=== PATIENT | female | born 1955 | race American Indian/Alaskan Native ===

== ENCOUNTER 2019-05-09 14:30 | Outpatient (RCR) | payer OTHER, SELFPAY ==
--- NOTE | 2019-04-05 14:42 | PTOPEVAL ---
PHYSICAL THERAPY EVALUATION AND PLAN OF CARE 04-05-19 The PT evaluation was completed today for the diagnosis of vertigo and balance issues. The plan of treatment is for 2x/week for 5 weeks. Thank you for referring Eduarda to [facility]. Please review, sign, date and return this plan of care CHUCKIE. I agree with and certify that the following plan of care is medically necessary. Referring Physician Date Attending Provider: Dr. Everett Qiu *PT Outpatient Evaluation Start: 04/05/19 13:39 Document 04/05/19 13:35 SOFI (Rec: 04/05/19 14:42 SOFI [id number]) Therapy Assessment Status Assessment Status Assessment Status Evaluation Outpatient Past Medical History Neurological History Hx Other Neurological Disorders Yes: have headache 1x/2-3 wk, reports not migraine Cardiovascular History Hx Hypertension Yes: med control Respiratory History Hx Chronic Obstructive Pulmonary Disease Yes: inhalers, (COPD) Hx Sleep Apnea Yes: CPAP for sleeping Hx Other Respiratory Disorders Yes: should use oxygen 2L/min all the time,not have today Gastrointestinal History Hx Other Gastrointestinal Disorders Yes: have spot on stomach-see in [place] Genitourinary History Hx Other Genitourinary Disorders Yes: chronic constipation; kidney failure-take water pills Musculoskeletal History Hx Back Pain Yes Hx Other Musculoskeletal Disorders Yes: neck pain; DDD in spine- neck and back Hematological History Hx Hematological Disorders No Significant History Endocrine History Hx Endocrine Disorders No Significant History HEENT History Hx Cataracts Yes: B cataracts/surg on L next week Hx Meniere's Syndrome Yes: 16 years Hx Ear Surgery Yes: 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 implant Hx Other HEENT Disorders Yes: wear glasses Integumentary History Hx Skin Disorders No Significant History Psychosocial History Hx Bipolar Disorder Yes: med control Other History Hx Cancer Yes: breast cancer-radiation, B mastectomy; NO chemo Hx Other Medical Conditions Yes: morbid obesity Evaluation Information Problem Diagnosis vertigo, gait and balance issues Onset about one year ago Subjective Information gradual increase in dizziness, Query Text:As Reported By Patient/ balance and walking problems; Family no recent injuries; Did have one fall in Nov 2018- floor uneven, lost footing an
--- NOTE | 2019-04-21 14:06 | PCPTNOTE ---
Patient called & cancelled scheduled appointment this date due to increase vertigo symptoms
--- NOTE | 2019-05-11 14:49 | PCPTNOTE ---
pt called and canceled today's reevaluation due to bad weather;
--- NOTE | 2019-05-19 14:55 | PCPTNOTE ---
pt called and canceled reeval this date due to her car not starting.
--- NOTE | 2019-05-20 11:32 | PCPTNOTE ---
pt called and cancelled today's reeval due to her car not running;
--- NOTE | 2019-06-03 10:55 | PCPTNOTE ---
Addendum entered by Margot Crump, PT 06/03/19 11:13: I called pt, she thought her appt was at 2:30 today; She was scheduled for 10:30; she reports she is doing well and does not need any more PT; she agreed to discharge from PT and to continue with her home exercises. Original Note: pt did not show for today's reevaluation;
--- NOTE | 2019-06-03 13:41 | PCPTNOTE ---
PHYSICAL THERAPY DISCHARGE 06-03-2019 Attending Provider: Dr. Everett Qiu Patient:Eduarda Wall Date of :1955 Mrs. Wall has not returned for any further treatments since 05/09/2019, therefore she will be discharged from therapy at this time. She called and canceled 3 appointments, then stopped attending. The goals were not assessed. She received 8 PT sessions, from April 05 to May 09 for the diagnosis of gait disturbance, balance and vertigo. Thank you for referring Eduarda to [facility]. Please review, sign, date and return this discharge summary CHUCKIE. I have been updated about the patient's current status and I agree with discharge from the above service at this time. Referring Physician Date
== END 2019-06-06 10:28 | disposition home or self-care (01) ==
LOC: ANHPT 14:30
PROVIDERS: PCP Internal Medicine
DX: G43.109 Migraine with aura, not intractable, without status migrainosus (principal); R42 Dizziness and giddiness
CPT/HCPCS: 97110; 97116; 97162

== ENCOUNTER 2019-05-30 13:59 | Outpatient (CLI) | payer OTHER, SELFPAY ==
--- NOTE | ~2019-05-30 | CT_ITS ---
EXAMINATION: CT abdomen pelvis wo con DATE: 05/30/2019 14:23 INDICATION: Periumbilical pain TECHNIQUE: Computed tomography (CT) of the abdomen and pelvis was performed without intravenous contr ast. The dose-length product (DLP) was 1222.85 mGy-cm. Automated exposure control and iterative recon struction technique were employed. COMPARISON: 03/21/2014 FINDINGS: Minimal dependent atelectasis is present in the lung bases. The heart size is normal. Bilat eral breast implants are noted. A 12.4 x 7.1 cm cystic lesion of the left hepatic lobe measured 5.2 x 3.1 cm on the 2013 comparison. There is a 1.4 cm cyst in the right hepatic lobe. The spleen, pancrea s, and right adrenal gland are normal. There is a 1.2 cm adenoma of the left adrenal gland. The gallb ladder is surgically absent. There is mild enlargement of the common bile duct and central intrahepat ic ducts which is likely due to post cholecystectomy state. Nonobstructing stones of the left kidney measure up to 5 mm. Nonobstructing stones of the right kidney measure up to 3 mm. Cysts of the kidney s measure up to 2.8 cm on the left. No pathologically enlarged abdominal or pelvic lymph nodes are id entified. There is no free intraperitoneal gas or evidence of bowel obstruction. Colonic diverticulos is is present without evidence of diverticulitis. There is severe lumbar spondylosis. There is been interval repair of the previously described Spigelian and supraumbilical hernias. IMPRESSION: 1. No CT correlate for the patient's symptoms. 2. Bilateral nephrolithiasis. 3. Interval enlargement of a now large cystic lesion of the left hepatic lobe. Reviewed, dictated and finalized at location A. 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
== END 2019-05-30 14:00 | disposition home or self-care (01) ==
PROVIDERS: PCP Internal Medicine; Visit Provider Internal Medicine
DX: R10.33 Periumbilical pain (principal); N20.0 Calculus of kidney; K76.9 Liver disease, unspecified
CPT/HCPCS: 74176

== ENCOUNTER 2019-06-17 12:48 | Outpatient (CLI) | payer OTHER, SELFPAY ==
[2019-06-17 13:43] LABS: Hemoglobin A1C 5.2 % (<5.7)
[2019-06-17 14:14] LABS: Free T4 Free Thyroxine 0.97 ng/mL (0.78-2.19)
== END 2019-06-17 12:49 | disposition home or self-care (01) ==
DX: R94.6 Abnormal results of thyroid function studies (principal)
CPT/HCPCS: 36415; 83036; 84439; 84443

== ENCOUNTER 2019-09-22 12:52 | Outpatient (CLI) | payer OTHER, SELFPAY ==
[2019-09-22 13:30] LABS: Alanine Aminotransferase 16 U/L (4-35); Alkaline Phosphatase 154 U/L (38-126); Aspartate Amino Transferase 23 U/L (14-36); Bilirubin,Total 0.2 mg/dL (0.2-1.3); Blood Urea Nitrogen 17 mg/dL (7-17); Calcium 10.7 mg/dL (8.4-10.2); Carbon Dioxide 30 mmol/L (22-30); Chloride 105 mmol/L (98-107); Cholesterol 236 mg/dL (0-200); Estimated Glomerular Filt Rate 38; Glucose 103 mg/dL (65-105); HDL Direct 30 mg/dL; Sodium 140 mmol/L (137-145); Triglycerides 235 mg/dL (<150)
[2019-09-22 13:40] LABS: LDL Cholesterol Direct 157 mg/dL
== END 2019-09-22 12:53 | disposition home or self-care (01) ==
LOC: ANHLAB 12:55
PROVIDERS: Visit Provider Internal Medicine
DX: E78.5 Hyperlipidemia, unspecified (principal); I12.9 Hypertensive chronic kidney disease with stage 1 through stage 4 chronic kidney disease, or unspecified chronic kidney disease; N18.3 Chronic kidney disease, stage 3 (moderate); E21.3 Hyperparathyroidism, unspecified
CPT/HCPCS: 36415; 80053; 80061

== ENCOUNTER 2019-11-15 14:08 | Outpatient (CLI) | payer OTHER, SELFPAY ==
--- NOTE | ~2019-11-15 | XR_ITS ---
XR chest 2V DATE: 11/15/2019 14:24 INDICATION: Unspecified symptoms and signs involving the circulatory system TECHNIQUE: PA and lateral views COMPARISON: 05/08/2017 PA and lateral chest FINDINGS: Heart size is within normal range. There is mild aortic unfolding and calcification. No hil ar or mediastinal enlargement. No pulmonary infiltrate or consolidation, pleural effusion or pulmonary vascular congestion or pneumo thorax. Surgical clips, left axillary area. Osteopenia. Dextroscoliosis and mild degenerative change of the thoracic spine. IMPRESSION: No active cardiac pulmonary disease Status post left axillary node dissection Reviewed, dictated and finalized at location A.
== END 2019-11-15 14:09 | disposition home or self-care (01) ==
PROVIDERS: Visit Provider Nurse Practitioner Family
DX: R05 Cough (principal); R09.89 Other specified symptoms and signs involving the circulatory and respiratory systems; R06.02 Shortness of breath; R07.9 Chest pain, unspecified; Z98.890 Other specified postprocedural states
CPT/HCPCS: 71046

== ENCOUNTER 2020-01-31 16:03 | Outpatient (CLI) | payer OTHER, SELFPAY ==
--- NOTE | ~2020-01-31 | CT_ITS ---
EXAMINATION: CT lung screening DATE: 01/31/2020 16:26 INDICATION: History of tobacco dependence TECHNIQUE: Computed tomography (CT) of the chest was performed without intravenous contrast. The dose -length product was 241.75 mGy-cm. Automated exposure control and iterative reconstruction technique were employed. COMPARISON: CT dated 08/16/2014 FINDINGS: Chronic mild mediastinal lymphadenopathy, likely reactive. There is atherosclerosis of the aorta and coronary arteries. No significant pleural or pericardial effusion. Mild paraseptal emphysema. There are persistent patchy groundglass opacities with areas of mosaic att enuation, predominantly affecting the upper lobes. There are a few small scattered 2 mm calcified nod ules in the upper lobes. There is a 6 mm subsolid nodule right lower lobe, image 90. This does not ap pear to be significantly changed. There are breast implants. There are surgical clips in the left axi lla. Significant enlargement of hypodense mass left hepatic lobe measuring 12.7 x 7.5 cm compared with 5.2 x 3.1 cm on prior examination. IMPRESSION: 1. Scattered groundglass opacification predominantly affecting the upper lobes with some solid ground glass nodule measuring 6 mm in the right lower lobe. No significant interval change. Differential amanda gnosis includes chronic hypersensitivity pneumonitis, respiratory bronchiolitis. 2: Chronic mediastinal lymphadenopathy, likely reactive. 3: Enlarging hypodense mass left hepatic lobe. Correlation with contrast-enhanced CT or MRI recommend ed to assess for internal enhancement. 4: Mild emphysema. Reviewed, dictated and finalized at location A. IMPRESSION: 1. Scattered groundglass opacification predominantly affecting the upper lobes with some solid groundglass nodule measuring 6 mm in the right lower lobe. No s ignificant interval change. Differential diagnosis includes chronic hypersensit ivity pneumonitis, respiratory bronchiolitis. 2: Chronic mediastinal lymphadenopathy, likely reactive. 3: Enlarging hypodense mass left hepatic lobe. Correlation with contrast-enhanc ed CT or MRI recommended to assess for internal enhancement. 4: Mild emphysema.
== END 2020-01-31 16:04 | disposition home or self-care (01) ==
PROVIDERS: PCP Internal Medicine; Visit Provider Nurse Practitioner Family
DX: Z12.2 Encounter for screening for malignant neoplasm of respiratory organs (principal); Z87.891 Personal history of nicotine dependence; R91.8 Other nonspecific abnormal finding of lung field; R59.0 Localized enlarged lymph nodes; R16.0 Hepatomegaly, not elsewhere classified; J43.9 Emphysema, unspecified
CPT/HCPCS: G0297

== ENCOUNTER 2020-02-06 00:47 | Outpatient (CLI) | payer OTHER, SELFPAY ==
[2020-02-06 19:58] LABS: SARS-CoV-2 RNA PCR Negative
== END 2020-02-06 00:48 | disposition home or self-care (01) ==
LOC: ANHCOVIDDT 00:47
PROVIDERS: PCP Internal Medicine; Visit Provider Internal Medicine Gastroenterology
DX: Z01.812 Encounter for preprocedural laboratory examination (principal); Z20.828 Contact with and (suspected) exposure to other viral communicable diseases
CPT/HCPCS: 87635; C9803; U0003

== ENCOUNTER 2020-02-08 02:08 | Day surgery (SDC) | payer OTHER, SELFPAY ==
[2020-02-01 13:04] VITALS: BMI 41.2
[2020-02-08 07:55] VITALS: BP 179/70; PULSE 84; RESP 18; TEMP 36.9; O2SAT 98; BMI 40.4
[2020-02-08] MEDS: LACTATED RINGERS 1,000 ML 150 ML IV CONT (08:07)
--- NOTE | 2020-02-08 08:39 | WPDANESEPPF ---
Anes - Initial Pre Proc Eval Procedure: Operation Date: 02/08/20 09:00 Proposed Procedures p Screening Colonoscopy - Yandel Carrera MD Date/Time: 02/08/20 08:39 Surgeon: Yandel Carrera MD Pre Op Diagnosis: neoplasm screening Patient Data Age: 64 Gender: F Height: 5 ft 1 in Weight: 96.9 kg Last Vital Signs Temp 36.9 C 02/08/20 07:55 Pulse 84 02/08/20 07:55 Resp 18 02/08/20 07:55 BP 179/70 H 02/08/20 07:55 Pulse Ox 98 02/08/20 07:55 Allergies Allergy/AdvReac Type Severity Reaction Status Date / Time tetanus immune globulin Allergy Mild HIVES Verified 02/08/20 07:52 cyclobenzaprine Allergy Unknown TINGLING Verified 02/08/20 07:52 SENSATION IN EXTREMITIES fluoxetine Allergy Unknown Unknown Verified 02/08/20 07:52 tetanus and diphtheria Allergy Unknown Swelling Verified 02/08/20 07:52 toxoids Tetanus Vaccines and Toxoid Allergy Unknown rash Verified 02/08/20 07:52 FLUOXETINE HCL Allergy Unknown RASH, Uncoded 02/08/20 07:52 SWELLING Home Medications Medication Instructions Recorded Confirmed Type nortriptyline 10 mg capsule 10 mg PO DAILY 02/25/19 02/01/20 History albuterol sulfate 2.5 mg INHALATION BID PRN #60 ml 04/18/19 02/01/20 Rx albuterol sulfate 90 mcg/actuation 2 inhalation INHALATION Q4-6H PRN 04/18/19 02/01/20 Rx aerosol inhaler #8.5 gm mometasone-formoterol HFA 200 2 puff INHALATION Q12H #13 gm 04/20/19 02/01/20 Rx mcg-5 mcg/actuation aerosol inhaler lisinopril 30 mg tablet 30 mg PO DAILY #90 tablet 06/27/19 02/01/20 Rx bupropion HCl 150 mg 24 hr tablet, 150 mg PO QAM #90 tablet 08/12/19 02/01/20 Rx extended release pantoprazole 40 mg tablet,delayed 40 mg PO QAM #30 tablet 08/12/19 02/08/20 Rx release potassium chloride 20 mEq 20 meq PO DAILY #30 tablet 09/26/19 02/01/20 Rx tablet,extended release(part/cryst) risperidone 3 mg tablet 3 mg PO DAILY #90 tablet 09/29/19 02/01/20 Rx furosemide 40 mg tablet 40 mg PO BID #180 tablet 11/28/19 02/01/20 Rx amlodipine 10 mg tablet 10 mg PO DAILY #90 tablet 12/02/19 02/01/20 Rx atorvastatin 20 mg tablet 20 mg PO DAILY #90 tablet 12/20/19 02/01/20 Rx peg-electrolyte solution 420 gram 240 ml PO Q10M #4000 ml 12/30/19 01/18/20 Rx oral solution hydrocodone 10 mg-acetaminophen 1 tablet PO Q6H PRN #120 tablet 01/26/20 02/01/20 Rx 325 mg tablet Patient hx anesthesia problems: none Family hx anesthesia problems: none PMFSH Past Medical History Medical History Bipolar disorder, unspecified Chronic kidney disease, stage 3 (moderate) Chronic obstructive pulmonary disease, unspecified Essential (primary) hypertension Liver mass BERTA (obstructive sleep apnea) Screening for colon cancer Screening for osteoporosis Surgical History Surgical History Status post mastectomy Family History Family History Sibling Family history of malignant neoplasm Family history of diabetes mellitus in first degree relative Family history of lupus erythematosus Family history of malignant neoplasm of brain Family history of malignant neoplasm of breast Mother Family history of chronic obstructive pulmonary disease, Onset Age: 76 Patient's mother is Family history of emphysema Family history of malignant neoplasm of breast Father Family history of malignant neoplasm of esophagus, Onset Age: 54 Patient's father is Other Family history of cardiovascular disease Family history of malignant neoplasm of male breast Family history of obesity Social History Social History Years smoked: 30 Smoking status: Current every day smoker Tobacco type: cigarettes Second hand tobacco smoke exposure: Yes Smoking end date:
--- NOTE | 2020-02-08 08:51 | PM.HPGS ---
History of Present Illness History of Present Illness Consent: Risks, benefits, and alternatives have been discussed and questions answered. Patient agrees to proceed with procedure. Chief complaint: neoplasm screening Narrative: Eduarda Wall is a 64 year old female here for screening colonoscopy, last one about 10 years ago. Review of Systems Constitutional: Constitutional: Denies headache(s) and Denies weakness Eyes: Eyes: Denies blurry vision ENT: Reports Normal hearing present, Denies headache(s) and Denies neck pain Cardiovascular: Cardiovascular: Denies chest pain and Denies dyspnea Respiratory: Respiratory: Denies dyspnea Gastrointestinal: Gastrointestinal: Reports no additional gastrointestinal complaints Genitourinary: Genitourinary: Denies dysuria Musculoskeletal: Musculoskeletal: Denies neck pain Integumentary/Breasts: Skin/Breast: Denies dry skin Neurologic: Reports Normal hearing present, Denies headache(s) and Denies weakness Psychiatric: Psychiatric: Denies anxiety Endocrine: Endocrine: Denies change in body appearance Hematologic/Lymphatic: Hematologic/Lymphatic: Denies easy bleeding Allergic/Immunologic: Allergic/Immunologic: Denies urticaria PMFSH Past Medical History Medical History Bipolar disorder, unspecified Chronic kidney disease, stage 3 (moderate) Chronic obstructive pulmonary disease, unspecified Essential (primary) hypertension Liver mass BERTA (obstructive sleep apnea) Screening for colon cancer Screening for osteoporosis Surgical History Surgical History Status post mastectomy Family History Family History Sibling Family history of malignant neoplasm Family history of diabetes mellitus in first degree relative Family history of lupus erythematosus Family history of malignant neoplasm of brain Family history of malignant neoplasm of breast Mother Family history of chronic obstructive pulmonary disease, Onset Age: 76 Patient's mother is Family history of emphysema Family history of malignant neoplasm of breast Father Family history of malignant neoplasm of esophagus, Onset Age: 54 Patient's father is Other Family history of cardiovascular disease Family history of malignant neoplasm of male breast Family history of obesity Social History Social History Years smoked: 30 Smoking status: Current every day smoker Tobacco type: cigarettes Second hand tobacco smoke exposure: Yes Smoking end date: 06/04/17 Alcohol intake: never Living arrangements: with family Gender identity (if verbalized by the patient): Female Spiritual care concerns: No Meds Home Medications and Allergies Home Medications Medication Instructions Recorded Confirmed Type nortriptyline 10 mg capsule 10 mg PO DAILY 02/25/19 02/01/20 History albuterol sulfate 2.5 mg INHALATION BID PRN #60 ml 04/18/19 02/01/20 Rx albuterol sulfate 90 mcg/actuation 2 inhalation INHALATION Q4-6H PRN 04/18/19 02/01/20 Rx aerosol inhaler #8.5 gm mometasone-formoterol HFA 200 2 puff INHALATION Q12H #13 gm 04/20/19 02/01/20 Rx mcg-5 mcg/actuation aerosol inhaler lisinopril 30 mg tablet 30 mg PO DAILY #90 tablet 06/27/19 02/01/20 Rx bupropion HCl 150 mg 24 hr tablet, 150 mg PO QAM #90 tablet 08/12/19 02/01/20 Rx extended release pantoprazole 40 mg tablet,delayed 40 mg PO QAM #30 tablet 08/12/19 02/08/20 Rx release potassium chloride 20 mEq 20 meq PO DAILY #30 tablet 09/26/19 02/01/20 Rx tablet,extended release(part/cryst) risperidone 3 mg tablet 3 mg PO DAILY #90 tablet 09/29/19 02/01/20 Rx furosemide 40 mg tablet 40 mg PO BID #180 tablet 11/28/19 02/01/20 Rx amlodipine 10 mg tablet 10 mg PO DAILY #90 tablet 12/02/19 10
[2020-02-08 09:31] VITALS: BP 131/50; PULSE 74; RESP 22; O2SAT 98
[2020-02-08 09:41] VITALS: BP 127/57; PULSE 72; RESP 20; O2SAT 99
[2020-02-08 09:51] VITALS: BP 142/68; PULSE 71; RESP 20; O2SAT 98
== END 2020-02-08 10:47 | disposition home or self-care (01) ==
PROVIDERS: PCP Internal Medicine; Visit Provider Internal Medicine Gastroenterology
PROC: 0DJD8ZZ Inspection of Lower Intestinal Tract, Via Natural or Artificial Opening Endoscopic (ICD-10-PCS; CPT 45378; principal; 2020-02-08 09:00)
DX: Z12.11 Encounter for screening for malignant neoplasm of colon (principal); D12.2 Benign neoplasm of ascending colon; K51.40 Inflammatory polyps of colon without complications; K57.30 Diverticulosis of large intestine without perforation or abscess without bleeding; I12.9 Hypertensive chronic kidney disease with stage 1 through stage 4 chronic kidney disease, or unspecified chronic kidney disease; N18.30 Chronic kidney disease, stage 3 unspecified; J44.9 Chronic obstructive pulmonary disease, unspecified; G47.33 Obstructive sleep apnea (adult) (pediatric); F31.9 Bipolar disorder, unspecified; F17.210 Nicotine dependence, cigarettes, uncomplicated; E66.01 Morbid (severe) obesity due to excess calories; Z68.41 Body mass index [BMI] 40.0-44.9, adult
CPT/HCPCS: 45385; 88305; J2704; J7120

== ENCOUNTER 2020-02-09 09:31 | Outpatient (CLI) | payer OTHER, SELFPAY ==
--- NOTE | ~2020-02-09 | CT_ITS ---
EXAMINATION: CT abdomen w con EXAM DATE: 02/09/2020 10:02 INDICATION: R16.0 - Hepatomegaly, not elsewhere classified . TECHNIQUE: Spiral CT of the abdomen was performed following intravenous injection of 100 mL Omnipaque 350. Axial, coronal and sagittal images were reviewed. The dose-length product (DLP) for this exam ination was 792.21 mGy-cm. The exposure was tailored according to patient size (auto mA exposure con trol), and iterative reconstruction (ASIR) was used as additional dose reduction technique. Compariso n is made to prior examination from 05/30/2019. FINDINGS: Again there is lobular multiseptated left liver lobe fluid density lesion straddling the me dial and lateral segments, and measuring up to 12 by 8 cm, unchanged compared to May. This did i ncrease substantially in size compared to study from 2013 (was approximately 5 cm), indicating it cou ld potentially be an asymptomatic intrahepatic biloma. Size of lesion does cause enlargement of the l eft liver lobe. There is a 10 mm left adrenal gland lesion likely adenoma. This is unchanged. The right adrenal gland , spleen, pancreas are unremarkable. Gallbladder not identified, patient likely has had cholecystecto my. There is bilateral nephrolithiasis, largest in the left sided 3 mm. There are multiple scattered renal lesions consistent with cysts There is no retroperitoneal lymphadenopathy. There is mild scat tered arteriosclerotic disease. There is 2 cm duodenal diverticulum. The stomach and small bowel are unremarkable. There is expecte d amount of colonic stool. No free intraperitoneal gas. The heart is normal in size. There are n o pericardial or pleural effusions. The lung bases are unremarkable. Small sclerotic lesion in T12 unchanged, likely bone island. IMPRESSION: 1. Left liver lobe septated cystic lesion, stable from May but increased compared to 2013. Live r cysts can increase in size, but this potentially could be intrahepatic biloma as well. Cholecystect isaac. 2. Left adrenal adenoma. 3. Bilateral nephrolithiasis. 4. Duodenal diverticulum. Reviewed, dictated and finalized at location B. 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 Left liver lobe septated cystic lesion, stable from May but increased compared to 2013. Liver cysts can increase in size, but this potentially could be intrahepatic biloma as well. Cholecystectomy. 2. Left adrenal adenoma. 3. Bilateral nephrolithiasis. 4. Duodenal diverticulum.
--- NOTE | ~2020-02-09 | DEXA_ITS ---
Bone Density Report Name: Eduarda Wall Age: 64 Sex: Female Ethnicity: White Date of : 1955 Indication: postmenopausal; height loss; prior fracture; cancer; asthma or emphysema; end stage renal disease; hysterectomy; Referring Provider: Mindy Campos Study: Bone densitometry was performed. Exam Date: February 09, 2020 Accession number: [id number] Bone Density: Region BMD T-score Z-score Classification AP Spine (L1, L2, L3) 0.964 -0.5 1.1 Normal Femoral Neck (Left) 0.742 -1.0 0.5 Normal Total Hip (Left) 1.040 0.8 1.9 Normal Total Hip Bilateral Avg 1.055 0.9 2.1 Normal Femoral Neck (Right) 0.707 -1.3 0.1 Osteopenia Total Hip (Right) 1.068 1.0 2.2 Normal World Health Organization criteria for BMD impression classify patients as: Normal (T-score at or above -1.0), Osteopenia (T-score between -1.0 and -2.5), or Osteoporosis (T-score at or below -2.5). 10-year Fracture Risk(1): Major Osteoporotic Fracture 12% Hip Fracture 1.6% Reported Risk Factors: [place] (), Neck BMD=0.707, BMI=41.2, previous fracture, smoking (1) FRAX(R) Version 3.08. Fracture probability calculated for an untreated patient. Fracture probability may be lower if the patient has received treatment. Previous Exams: Region Exam Age BMD T-score BMD Change BMD Change Date g/cm2 vs Baseline vs Previous AP Spine(L1, L2, L3) 02/09/2020 64 0.964 -0.5 -0.034(-3.4%)* -0.034(-3.4%)* 12/28/2013 58 0.998 -0.2 Total Hip(Left) 02/09/2020 64 1.040 0.8 -0.074(-6.7%)* -0.074(-6.7%)* 12/28/2013 58 1.114 1.4 Total Hip(Right) 02/09/2020 64 1.068 1.0 -0.066(-5.8%)* -0.066(-5.8%)* 12/28/2013 58 1.134 1.6 *Denotes significance at 95% confidence level, LSC for AP Spine = 0.022 g/cm2, LSC for Total Hip = 0.027 g/cm2 Clinical Information Provided by Patient: Has had a low trauma fracture Smokes Has the following medical conditions: Asthma or Emphysema, Cancer, End stage renal disease, Hysterectomy Patient maximum height was 63 Menopause Age: 41 No regular weight bearing exercise Onset of menses at age 9 Number of children 2 Impression: The patient has low bone mass, based on the Right Femoral Neck T-score. The patient has an estimated ten-year risk of hip fracture of 1.6% and an estimated ten-year risk of major fracture of 12%, based on the WHO FRAX algorithm. The patient has risk factors, including: smoking, previous fracture. The BMD for the
[2020-02-09 09:56] LABS: Estimated Glomerular Filt Rate 41
== END 2020-02-09 09:32 | disposition home or self-care (01) ==
PROVIDERS: PCP Internal Medicine; Visit Provider Nurse Practitioner
DX: R16.0 Hepatomegaly, not elsewhere classified (principal); D35.02 Benign neoplasm of left adrenal gland; N20.0 Calculus of kidney; K57.10 Diverticulosis of small intestine without perforation or abscess without bleeding; M85.851 Other specified disorders of bone density and structure, right thigh
CPT/HCPCS: 74160; 77080; Q9967

== ENCOUNTER 2020-02-20 12:14 | Outpatient (NON) | payer OTHER, SELFPAY ==
[2020-02-22 18:08] LABS: SARS-CoV-2 RNA PCR Negative
== END 2020-02-20 12:15 ==
LOC: ANHCOVIDDT 12:15
PROVIDERS: PCP Internal Medicine; Visit Provider Internal Medicine
DX: R68.89 Other general symptoms and signs (principal); Z20.828 Contact with and (suspected) exposure to other viral communicable diseases
CPT/HCPCS: 87635; C9803; U0003

== ENCOUNTER 2020-03-09 12:40 | Outpatient (CLI) | payer OTHER, SELFPAY ==
[2020-03-09 13:24] LABS: Alanine Aminotransferase 14 U/L (4-35); Albumin Level 3.8 g/dL (3.5-5.1); Alkaline Phosphatase 152 U/L (38-126); Anion Gap 6 mmol/L (8-16); Aspartate Amino Transferase 20 U/L (14-36); Bilirubin,Total 0.4 mg/dL (0.2-1.3); Blood Urea Nitrogen 17 mg/dL (7-17); Calcium 11.6 mg/dL (8.4-10.2); Carbon Dioxide 31 mmol/L (22-30); Chloride 103 mmol/L (98-107); Cholesterol 165 mg/dL (0-200); Estimated Glomerular Filt Rate 35; Glucose 99 mg/dL (65-105); HDL Direct 29 mg/dL; Potassium 3.5 mmol/L (3.4-5.0); Sodium 140 mmol/L (137-145); Triglycerides 259 mg/dL (<150)
[2020-03-09 13:35] LABS: LDL Cholesterol Direct 88 mg/dL
[2020-03-09 14:02] LABS: Vitamin D 25 Hydroxy 45.5 ng/mL
== END 2020-03-09 12:41 | disposition home or self-care (01) ==
LOC: ANHLAB 12:42
PROVIDERS: Nurse Practitioner Family; PCP Internal Medicine; Visit Provider Nurse Practitioner
DX: N18.30 Chronic kidney disease, stage 3 unspecified (principal); E78.5 Hyperlipidemia, unspecified; E21.3 Hyperparathyroidism, unspecified
CPT/HCPCS: 36415; 80053; 80061; 82306; 86331; 86606; 86609

== ENCOUNTER 2020-03-20 14:16 | Outpatient (CLI) | payer OTHER, SELFPAY ==
--- NOTE | ~2020-03-20 | XR_ITS ---
EXAMINATION: XR humerus LT EXAM DATE: 03/20/2020 14:34 INDICATION: M79.629 - Pain in unspecified upper arm NON INJ. TECHNIQUE: Orthogonal projections left humerus. There is no prior study for comparison. FINDINGS: There are no acute left humeral fractures or dislocations identified. There is no subcutan eous gas. The soft tissue is unremarkable. Surgical clips in the left axilla. There is mild left s houlder primary osteoarthritis. Left midlung zone nodule likely calcified granuloma. IMPRESSION: Mild left shoulder osteoarthritis. Reviewed, dictated and finalized at location A. 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
== END 2020-03-20 14:17 | disposition home or self-care (01) ==
PROVIDERS: PCP Internal Medicine; Visit Provider Internal Medicine
DX: M79.629 Pain in unspecified upper arm (principal); M19.012 Primary osteoarthritis, left shoulder
CPT/HCPCS: 73060

== ENCOUNTER 2020-03-28 12:51 | Outpatient (CLI) | payer OTHER, SELFPAY ==
[2020-03-28 13:48] LABS: Anion Gap 7 mmol/L (8-16); Blood Urea Nitrogen 16 mg/dL (7-17); Calcium 10.9 mg/dL (8.4-10.2); Carbon Dioxide 30 mmol/L (22-30); Chloride 104 mmol/L (98-107); Estimated Glomerular Filt Rate 41; Glucose 121 mg/dL (65-105); Sodium 141 mmol/L (137-145)
[2020-03-28 14:00] LABS: Parathyroid Intact 261.8 pg/mL (7.5-53.5)
[2020-03-28 14:19] LABS: Free T4 Free Thyroxine 0.99 ng/mL (0.78-2.19); Thyroid Stimulating Hormone 0.729 uIU/mL (0.465-4.680)
== END 2020-03-28 12:52 | disposition home or self-care (01) ==
PROVIDERS: PCP Internal Medicine
DX: E83.52 Hypercalcemia (principal)
CPT/HCPCS: 36415; 80048; 83519; 83970; 84439; 84443

== ENCOUNTER 2020-04-20 08:38 | Outpatient (CLI) | payer OTHER, SELFPAY ==
[2020-04-26 07:08] LABS: Total Volume 2100 mL; Urine Calcium 9.9 mg/dL
== END 2020-04-20 08:39 | disposition home or self-care (01) ==
PROVIDERS: PCP Internal Medicine
DX: E83.52 Hypercalcemia (principal)
CPT/HCPCS: 82340

== ENCOUNTER 2020-06-08 13:39 | Outpatient (CLI) | payer OTHER, SELFPAY ==
--- NOTE | 2020-06-09 09:39 | WPDSIXMINUTE ---
Six Minute Walk This is a 6 minutes walk test. The test was performed and interpreted in accordance with the 2014 ERS/ATS task force guidelines. Findings: The patient's resting room air oxygen saturation measured by pulse oximetry was 94% and her heart rate was 61 bpm. Patient ambulated for 305 meters and oxygen saturation remained 91 to 95%. Heart rate at the end of the study was 132 bpm. There are no prior studies for comparison.
--- NOTE | 2020-06-09 09:40 | P.PCNPFT_ITS ---
PFT Interpretation This is a pulmonary function test with pre and post-bronchodilator spirometry, plethysmography and diffusing capacity. The test was performed and results interpreted in accordance with the 2019 and 2005 ATS/ERS Task Force guidelines respectively using the Global Lung Function Initiative-2012 reference equations. Patient demonstrated good effort and c ooperation. Reproducibility criteria were met. The quality of the pre bronchodilator spirometry maneuver was Grade A and post bronchodilator spirometry maneuver was Grade A. Findings: Spirometry: the contour of the inspiratory and expiratory flow tracing are normal. The pre bronchodilator FVC is 2.26 L, 80% predicted. The pre bronchodilator FEV1 is 1.75 L, 78% predicted. The FEV1: FVC ratio 77%. The post bronchodilator FVC is 2.23 L, representing 1% decrease. The post bronchodilator FEV1 is 1.72 L, representing a 1% decrease. Plethysmography: The total lung capacity is 4.04 L, 85% predicted. The functional residual capacity 0.83 L, 31% predicted. The residual volume is 0.76 L, 39% predicted. Diffusing capacity the absolute diffusion capacity is 10.2, 50% predicted. The diffusing capacity corrected for alveolar volume is 3.20, 71% predicted. Impression: The spirometry is normal without evidence of an obstructive abnormality. There is no significant improvement after inhaling a single dose of albuterol. There is an a and decrease in the residual volume and functional residual capacity with a normal total lung capacity. This is an abnormal but nonspecific lung volume pattern. The absolute diffusing capacity is moderately decreased and mildly decreased when corrected for alveolar volume. There are no prior studies for comparison
== END 2020-06-08 13:40 | disposition home or self-care (01) ==
PROVIDERS: PCP Internal Medicine; Referring Provider Internal Medicine Critical Care Medicine; Visit Provider Nurse Practitioner Family
DX: J44.9 Chronic obstructive pulmonary disease, unspecified (principal)
CPT/HCPCS: 94060; 94618; 94726; 94729

== ENCOUNTER 2020-07-12 15:50 | Outpatient (CLI) | payer OTHER, SELFPAY ==
[2020-07-12 17:04] LABS: Alanine Aminotransferase 13 U/L (4-35); Albumin Level 3.9 g/dL (3.5-5.1); Alkaline Phosphatase 142 U/L (38-126); Anion Gap 5 mmol/L (8-16); Aspartate Amino Transferase 20 U/L (14-36); Bilirubin,Total 0.2 mg/dL (0.2-1.3); Blood Urea Nitrogen 17 mg/dL (7-17); Carbon Dioxide 30 mmol/L (22-30); Chloride 105 mmol/L (98-107); Estimated Glomerular Filt Rate 38; Glucose 140 mg/dL (65-105); Potassium 2.8 mmol/L (3.4-5.0); Sodium 140 mmol/L (137-145)
== END 2020-07-12 15:51 | disposition home or self-care (01) ==
LOC: ANHLAB 15:51
PROVIDERS: PCP Internal Medicine; Visit Provider Internal Medicine
DX: E21.3 Hyperparathyroidism, unspecified (principal); I10 Essential (primary) hypertension; R16.0 Hepatomegaly, not elsewhere classified
CPT/HCPCS: 36415; 80053

== ENCOUNTER 2020-07-30 13:53 | Outpatient (CLI) | payer OTHER, SELFPAY ==
[2020-07-30 14:59] LABS: Anion Gap 3 mmol/L (8-16); Blood Urea Nitrogen 27 mg/dL (7-17); Calcium 10.9 mg/dL (8.4-10.2); Carbon Dioxide 27 mmol/L (22-30); Chloride 108 mmol/L (98-107); Estimated Glomerular Filt Rate 28; Glucose 114 mg/dL (65-105); Sodium 138 mmol/L (137-145)
== END 2020-07-30 13:54 | disposition home or self-care (01) ==
LOC: ANHLAB 13:56
PROVIDERS: Nurse Practitioner; PCP Internal Medicine; Visit Provider Internal Medicine
DX: E87.6 Hypokalemia (principal); R41.3 Other amnesia
CPT/HCPCS: 36415; 80048; 82607; 84443

== ENCOUNTER 2020-08-01 08:01 | Outpatient (CLI) | payer OTHER, SELFPAY ==
--- NOTE | ~2020-08-01 | XR_ITS ---
XR sacrum coccyx min 2V 08/01/2020 09:51 Indication: Sacrococcygeal pain. Multiple falls. Procedure: 3 views sacrum/coccyx Comparison: 10/16/2017 Findings: No fracture or traumatic malalignment. Sacral foramen are symmetric. There is bilateral asy mmetric degenerative changes of the sacroiliac joints, right greater than left. There is mild osteoar thritis of the hips. There is lower lumbar spondylosis. Impression: 1: Bilateral asymmetric degenerative change of the sacroiliac joints, right greater than left. Reviewed, dictated and finalized at location B. Impression: 1: Bilateral asymmetric degenerative change of the sacroiliac joints, right gre ater than left.
--- NOTE | ~2020-08-01 | XR_ITS ---
XR lumbar spine 2-3V 08/01/2020 09:51 Indication: Low back pain Procedure: 3 views lumbar spine Comparison: 03/01/2019 Findings: There is disc narrowing at L4-5 and L5-S1. There is moderate facet hypertrophy at L3-4, L4- 5 and L5-S1. There is degenerative anterolisthesis at L4-5 secondary to facet hypertrophy. No acute f racture is identified. There is levoscoliosis. Sacral foramen are symmetric. Impression: 1: Moderate lumbar spondylosis with grade 1 degenerative spondylolisthesis at L4-5. Reviewed, dictated and finalized at location B. Impression: 1: Moderate lumbar spondylosis with grade 1 degenerative spondylolisthesis at L 4-5.
--- NOTE | 2020-08-01 08:13 | ECHO_ITS ---
Patient Info Name: Eduarda Wall Age: 64 years : 1955 Gender: Female Ht: 61 in Wt: 204 lbs BSA: 2.04 m2 HR: 66 bpm BP: 149 / 76 mmHg Heart Rhythm: Sinus Rhythm Exam Date: 08/01/2020 8:16 AM Exam Location: [facility] Pulmonary Patient Status: Outpatient Admit Date: 08/01/2020 Staff Ordering Physician: Varghese Rocha DO Filter Tank Operator: Gabrielle Estevez RDCS Attending Provider: Varghese Rocha DO Referring Physician: Dontae Min DO; Exam Type: CA echo doppler color flow Study Info Indications R06.00 - Dyspnea, unspecified Complete two-dimensional, color flow and Doppler transthoracic echocardiogram is performed. Summary 1. Complete two-dimensional, color flow and Doppler transthoracic echocardiogram is performed. 2. Left ventricular chamber dimension is normal. 3. Left ventricular systolic function is normal, estimated at 60-65%. 4. There is moderately increased left ventricular wall thickness. 5. The left ventricular diastolic function is grade I diastolic dysfunction. 6. E/e' 10 is mildly elevated. 7. There is mild aortic valve sclerosis. Left Ventricle E/e' 10 is mildly elevated. Left ventricular chamber dimension is normal. Left ventricular systolic function is normal, estimated at 60-65%. There is moderately increased left ventricular wall thickness. The left ventricular diastolic function is grade I diastolic dysfunction. Right Ventricle Right ventricular chamber dimension is normal. Right ventricular systolic function is normal. Left Atria Left atrial chamber dimension is normal. Right Atria Right atrial chamber dimension is normal. Aortic Valve The aortic valve is trileaflet. There is mild aortic valve sclerosis. There is no aortic valve stenosis. There is no aortic valve regurgitation. Pulmonic Valve There is no pulmonic regurgitation. Mitral Valve There is no mitral valve stenosis. There is no mitral valve regurgitation. Tricuspid Valve There is no tricuspid valve regurgitation. Pericardium/Pleural There is no pericardial effusion. Inferior Vena Cava Normal inferior vena cava with >50% collapse upon inspiration consistent with normal right atrial pressure, 5 mmHg. Aorta The aortic root size at the sinus of Valsalva is normal. Left Ventricular Outflow Tract Name Value Normal LVOT 2D LVOT Diameter 1.9 cm LVOT Doppler LVOT Peak Gradient 6 mmHg LVOT Mean Gradient 3 mmHg LVOT VTI 28 cm LVOT VTI/AV VTI Ratio 0.6 LVOT Stroke Volume 78 ml LVOT CO 5.0 l/min LVOT CI 2.4 l/min/m2 Pulmonic Valve Name Value Normal RVOT Doppler RVOT Peak Gradient 3 mmHg PV Doppler
== END 2020-08-01 08:02 | disposition home or self-care (01) ==
PROVIDERS: PCP Internal Medicine; Referring Provider Internal Medicine; Visit Provider Internal Medicine Cardiovascular Disease
DX: R06.00 Dyspnea, unspecified (principal); M53.3 Sacrococcygeal disorders, not elsewhere classified; G89.29 Other chronic pain; M54.5 Low back pain; M47.816 Spondylosis without myelopathy or radiculopathy, lumbar region
CPT/HCPCS: 72100; 72220; 93306

== ENCOUNTER 2020-08-10 12:26 | Outpatient (CLI) | payer OTHER, SELFPAY ==
[2020-08-10 13:23] LABS: Parathyroid Intact 197.6 pg/mL (7.5-53.5)
[2020-08-10 14:03] LABS: Free T4 Free Thyroxine 1.08 ng/mL (0.78-2.19)
[2020-08-10 14:43] LABS: Anion Gap 4 mmol/L (8-16); Blood Urea Nitrogen 15 mg/dL (7-17); Calcium 11.6 mg/dL (8.4-10.2); Carbon Dioxide 26 mmol/L (22-30); Chloride 110 mmol/L (98-107); Estimated Glomerular Filt Rate 38; Glucose 103 mg/dL (65-105); Potassium 4.2 mmol/L (3.4-5.0); Sodium 140 mmol/L (137-145)
== END 2020-08-10 12:27 | disposition home or self-care (01) ==
LOC: ANHLAB 12:29
PROVIDERS: PCP Internal Medicine
DX: E83.52 Hypercalcemia (principal)
CPT/HCPCS: 36415; 80048; 83519; 83970; 84439; 84443

== ENCOUNTER 2020-08-10 12:31 | Outpatient (CLI) | payer OTHER, SELFPAY ==
--- NOTE | ~2020-08-10 | CT_ITS ---
EXAMINATION: CT brain wo/w con DATE: 08/10/2020 13:25 INDICATION: Headache. TECHNIQUE: Computed tomography (CT) of the head was performed without and with 100 mL Omnipaque 350 i ntravenous contrast. The mA was adjusted according to patient size. Iterative reconstruction techniqu e was employed. The dose-length product was 1210.67 mGy-cm. COMPARISON: Brain MRI 06/13/2004 FINDINGS: There is no intracranial hemorrhage, acute infarction, or abnormal intracranial mass lesion . The ventricles are normal in size. There is mild mucosal thickening in the ethmoid sinuses. There a re changes of left mastoidectomy. There is a left-sided cochlear implant. There are likely changes of ocular lens replacement surgeries. IMPRESSION: 1. Normal brain. Reviewed, dictated and finalized at location A. IMPRESSION: 1. Normal brain.
[2020-08-10 13:12] LABS: Anion Gap 3 mmol/L (8-16); Blood Urea Nitrogen 14 mg/dL (7-17); Calcium 11.5 mg/dL (8.4-10.2); Carbon Dioxide 26 mmol/L (22-30); Chloride 109 mmol/L (98-107); Estimated Glomerular Filt Rate 38; Glucose 102 mg/dL (65-105); Potassium 4.1 mmol/L (3.4-5.0); Sodium 138 mmol/L (137-145)
== END 2020-08-10 12:32 | disposition home or self-care (01) ==
PROVIDERS: PCP Internal Medicine; Visit Provider Internal Medicine
DX: E87.6 Hypokalemia (principal); R51.9 Headache, unspecified; R41.3 Other amnesia
CPT/HCPCS: 36415; 70470; 80048; 83519; 83970; 84439; 84443; Q9967

== ENCOUNTER 2020-08-21 09:45 | Outpatient (CLI) | payer OTHER, SELFPAY ==
--- NOTE | ~2020-08-21 | NM_ITS ---
EXAMINATION: NM sera stress w perfusion DATE: 08/21/2020 12:48 INDICATION: Dyspnea on exertion. TECHNIQUE: Rest images were obtained following intravenous administration of 10.05 mCi Tc99m tetrofos min (Myoview). The patient was infused intravenously with Lexiscan (regadenoson). Then, 30.2 mCi Tc99 m tetrofosmin (Myoview) was administered intravenously, and stress images were obtained. Data was rec onstructed into short axis and horizontal and vertical long axis SPECT images. Gated SPECT images wer e also obtained. COMPARISON: Myocardial perfusion imaging 06/29/2013 FINDINGS: There is no definite reversible or fixed perfusion abnormality to suggest ischemia or infar ction. There is no segmental wall motion abnormality. Left ventricular ejection fraction measures > 70%. IMPRESSION: 1. No definite ischemia or infarct. 2. Normal left ventricular ejection fraction measuring >70%. Reviewed, dictated and finalized at location A.
--- NOTE | 2020-08-21 10:07 | EST_ITS ---
Patient Info Name: Eduarda Wall Age: 64 years : 1955 Gender: Female Ht: 61 in Wt: 207 lbs BSA: 2.06 m2 Exam Date: 08/21/2020 10:44 AM Exam Location: [facility] Stress Patient Status: Outpatient Admit Date: 08/21/2020 Staff Ordering Physician: Varghese Rocha DO Attending Provider: Varghese Rocha DO Exercise Technologist: Fior Coker CT Exercise Physician: Varghese Rocha DO Exam Type: CA stress sera w NM Study Info A regadenoson stress test was performed. Summary 1. 1. Negative lexiscan stress test for ischemic ST changes by ECG criteria. 2. 2. Baseline hypertension. 3. 3. Nuclear scan to follow and will be reported separately. Please correlate with it. 4. 4. Patient informed of the above results. Protocol: Lexiscan Stress ECG Details Stage: REST Duration (min): 1 min : 12 sec HR (bpm): 67 SBP (mmHg): 154 DBP (mmHg): 66 Stage: REST Duration (min): 22 min : 3 sec HR (bpm): 72 SBP (mmHg): 154 DBP (mmHg): 66 Stage: STAGE 1 Duration (min): 0 min : 59 sec HR (bpm): 69 SBP (mmHg): 154 DBP (mmHg): 66 Stage: RECOVERY Duration (min): 1 min : 0 sec HR (bpm): 75 SBP (mmHg): 162 DBP (mmHg): 71 Stage: RECOVERY Duration (min): 2 min : 0 sec HR (bpm): 95 SBP (mmHg): 162 DBP (mmHg): 71 Stage: RECOVERY Duration (min): 3 min : 0 sec HR (bpm): 96 SBP (mmHg): 162 DBP (mmHg): 71 Stage: RECOVERY Duration (min): 3 min : 19 sec HR (bpm): 93 SBP (mmHg): 155 DBP (mmHg): 63 Rest HR: 72 bpm Peak HR: 98 bpm Rest Sys BP: 154 mmHg Peak Sys BP: 162 mmHg Max Pred HR: 157 bpm % Max Pred HR: 62 % Target HR: 133 bpm Max RPP: 15,876 bpm*mmHg Termination Reason: Completed protocol Cardiac Symptoms: Shortness of breath Total Time: 1 min : 0 sec Rest Wen BP: 66 mmHg Peak Wen BP: 71 mmHg Total Dose: 0.4 mg Resting ECG Sinus rhythm, IRBBB, borderline T wave in high lateral leads. Stress ECG No ST changes. Arrhythmias None. Report Signatures
== END 2020-08-21 09:46 | disposition home or self-care (01) ==
PROVIDERS: PCP Internal Medicine; Visit Provider Internal Medicine Cardiovascular Disease
DX: R06.00 Dyspnea, unspecified (principal)
CPT/HCPCS: 78452; 93017; A9502; J2785

== ENCOUNTER 2020-10-15 16:00 | Outpatient (RCR) | payer OTHER, SELFPAY ==
--- NOTE | 2020-09-25 13:46 | PTOPEVAL ---
Thank you for referring Eduarda Wall to [facility].? The patient is scheduled to be seen for therapy? 1-2x/week for 6 weeks. Please review, sign, date and return this plan of care CHUCKIE. I agree with and certify that the following plan of care is medically necessary. Referring Physician Date Attending Provider: Valdo Rosales MD Neurological History Hx Other Neurological Disorders Yes: have headache 1x/2-3 wk, reports not migraine Cardiovascular History Hx Angina Yes: States CT scan 01/31/20 for chest pain hx radiation Hx Hypercholesterolemia Yes Hx Hypertension Yes: med control Respiratory History Hx Asthma Yes Hx Chronic Obstructive Pulmonary Disease Yes: inhalers, (COPD) Hx Sleep Apnea Yes: CPAP for sleeping Hx Other Respiratory Disorders Yes: should use oxygen 2L/min all the time,not have today Gastrointestinal History Hx Cholecystectomy Yes Hx Other Gastrointestinal Disorders Yes: have spot on stomach-see dr in [place] Genitourinary History Hx Renal Disease Yes Hx Other Genitourinary Disorders Yes: chronic constipation; kidney failure-take water pills Musculoskeletal History Hx Back Pain Yes Hx Other Musculoskeletal Disorders Yes: neck pain; DDD in spine- neck and back Hematological History Hx Hematological Disorders No Significant History Endocrine History Hx Endocrine Disorders No Significant History HEENT History Hx Cataracts Yes: B cataracts/surg on L next week Hx Meniere's Syndrome Yes: 16 years Hx Ear Surgery Yes: 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 implant Hx Other HEENT Disorders Yes: wear glasses Integumentary History Hx Skin Disorders No Significant History Reproductive History Hx Hysterectomy Yes Hx Mastectomy Yes: bilateral Psychosocial History Hx Anxiety Yes Hx Bipolar Disorder Yes: med control Hx Depression Yes Pain History Has Past Pain Affected Your Daily Life Yes History of Long-Term Prescription Pain Yes Medication Use (Opiates) Anesthesia History Hx Anesthesia Reactions No Significant History Other History Hx Cancer Yes: breast cancer-radiation, B mastectomy; NO chemo Hx Implanted Device Yes: left coclear,implant left eye,breast implants Hx Other Medical Conditions Yes: morbid obesity Evaluation Information Problem Diagnosis
--- NOTE | 2020-10-17 15:21 | PCPTNOTE ---
Patient called & cancelled scheduled appointment this date due to too much pain today. She has a f/u with her MD next. Will call if she wants to reschedule. Will hold chart open for 2 weeks.
--- NOTE | 2020-11-12 08:54 | PCPTNOTE ---
Admitting Provider: Attending Provider: Valdo Rosales MD Patient:Eduarda Wall Date of :1955 Discharge Note Patient has not returned for any further treatments since 10/15/2020, therefore she will be discharged at this time. Patient?s initial visit was on 09/25/2020 12:30 and she had a total of 6 visits. The goals have been not met at this time due to limited visits attended. Thank you for referring this patient to [facility]. Please review, sign, date and return this discharge summary CHUCKIE. I have been updated about the patient's current status and I agree with discharge from the above service at this time. Referring Physician Date
== END 2020-11-14 15:31 | disposition home or self-care (01) ==
LOC: ANHPT 16:00
PROVIDERS: PCP Internal Medicine; Visit Provider Orthopaedic Surgery
DX: M75.42 Impingement syndrome of left shoulder (principal)
CPT/HCPCS: 97014; 97110; 97140; 97162; G0283

== ENCOUNTER 2020-12-06 09:51 | Outpatient (CLI) | payer OTHER, SELFPAY ==
[2020-12-06 10:47] LABS: Alanine Aminotransferase 7 U/L (4-35); Albumin Level 3.9 g/dL (3.5-5.1); Alkaline Phosphatase 158 U/L (38-126); Anion Gap 5 mmol/L (8-16); Aspartate Amino Transferase 26 U/L (14-36); Bilirubin,Total 0.5 mg/dL (0.2-1.3); Blood Urea Nitrogen 21 mg/dL (7-17); Calcium 8.7 mg/dL (8.4-10.2); Carbon Dioxide 29 mmol/L (22-30); Chloride 105 mmol/L (98-107); Cholesterol 160 mg/dL (0-200); Estimated Glomerular Filt Rate 41; Glucose 127 mg/dL (65-110); HDL Direct 25 mg/dL; Potassium 4.1 mmol/L (3.4-5.0); Sodium 139 mmol/L (137-145); Triglycerides 245 mg/dL (<150)
[2020-12-06 10:58] LABS: LDL Cholesterol Direct 70 mg/dL
== END 2020-12-06 09:52 | disposition home or self-care (01) ==
LOC: ANHLAB 09:53
PROVIDERS: PCP Internal Medicine; Visit Provider Internal Medicine
DX: I10 Essential (primary) hypertension (principal); N18.30 Chronic kidney disease, stage 3 unspecified; R16.0 Hepatomegaly, not elsewhere classified; E78.5 Hyperlipidemia, unspecified
CPT/HCPCS: 36415; 80053; 80061

== ENCOUNTER → 2020-12-20 00:29 | Outpatient (CLI) | payer OTHER, SELFPAY ==
[2020-12-20 19:52] LABS: SARS-CoV-2 RNA PCR Negative
== END ==
PROVIDERS: PCP Internal Medicine; Visit Provider Internal Medicine
DX: Z20.822 Contact with and (suspected) exposure to COVID-19 (principal)
CPT/HCPCS: C9803; U0003; U0005

== ENCOUNTER 2021-02-12 11:41 | Outpatient (CLI) | payer OTHER, SELFPAY ==
[2021-02-12 12:19] LABS: Anion Gap 10 mmol/L (8-16); Blood Urea Nitrogen 14 mg/dL (7-17); Calcium 8.6 mg/dL (8.4-10.2); Carbon Dioxide 27 mmol/L (22-30); Chloride 107 mmol/L (98-107); Estimated Glomerular Filt Rate 50; Glucose 103 mg/dL (65-110); Potassium 3.7 mmol/L (3.4-5.0); Sodium 144 mmol/L (137-145)
== END 2021-02-12 11:42 | disposition home or self-care (01) ==
LOC: ANHLAB 11:42
PROVIDERS: PCP Internal Medicine; Visit Provider Internal Medicine
DX: E87.6 Hypokalemia (principal); N18.30 Chronic kidney disease, stage 3 unspecified
CPT/HCPCS: 36415; 80048

== ENCOUNTER 2021-02-20 09:34 | Outpatient (CLI) | payer OTHER, SELFPAY ==
--- NOTE | ~2021-02-20 | XR_ITS ---
EXAMINATION: XR knee RT 3V DATE: 02/20/2021 10:11 INDICATION: Right knee pain. TECHNIQUE: 3 views of right knee were obtained. COMPARISON: Right knee radiographs 07/29/2011 FINDINGS: Bone alignment is normal. No fracture. There is mild osteoarthritis of medial and lateral c ompartments characterized by marginal osteophytes without joint space narrowing. No knee joint effusi on. IMPRESSION: 1. Mild right knee osteoarthritis. Reviewed, dictated and finalized at location A. E SETTER APPRENTICE
[2021-02-20 13:36] LABS: Free T4 Free Thyroxine Reflex 1.05 ng/dL (0.78-2.19)
[2021-02-21 09:09] LABS: Total Triiodothyronine (T3) 1.41 NG/ML (0.97-1.69)
== END 2021-02-20 09:35 | disposition home or self-care (01) ==
PROVIDERS: PCP Internal Medicine; Visit Provider Internal Medicine
DX: M17.11 Unilateral primary osteoarthritis, right knee (principal); E21.0 Primary hyperparathyroidism
CPT/HCPCS: 36415; 73562; 84439; 84443; 84480

== ENCOUNTER 2021-05-07 14:24 | Outpatient (CLI) | payer OTHER, SELFPAY ==
[2021-05-07 15:17] LABS: Alanine Aminotransferase 14 U/L (4-35); Alkaline Phosphatase 130 U/L (38-126); Anion Gap 7 mmol/L (8-16); Aspartate Amino Transferase 22 U/L (14-36); Bilirubin,Total 0.3 mg/dL (0.2-1.3); Blood Urea Nitrogen 19 mg/dL (7-17); CRP 1.1 mg/dL (<1.0); Calcium 9.3 mg/dL (8.4-10.2); Carbon Dioxide 26 mmol/L (22-30); Chloride 107 mmol/L (98-107); Cholesterol 116 mg/dL (0-200); Creatine Kinase 35 U/L (30-135); Estimated Glomerular Filt Rate 41; Glucose 99 mg/dL (65-110); HDL Direct 25 mg/dL; Potassium 3.7 mmol/L (3.4-5.0); Sodium 140 mmol/L (137-145); Triglycerides 181 mg/dL (<150)
[2021-05-07 15:21] LABS: Rheumatoid Factor < 8.6 IU/ML (<12)
[2021-05-07 15:28] LABS: LDL Cholesterol Direct 56 mg/dL
[2021-05-07 15:48] LABS: Erythrocyte Sedimentation Rate 64 mm/hr (0-20)
[2021-05-11 23:17] LABS: Anti Cyclic Citrullinated Pept <16 Units (<20)
== END 2021-05-07 14:25 | disposition home or self-care (01) ==
PROVIDERS: PCP Internal Medicine; Visit Provider Nurse Practitioner
DX: M79.10 Myalgia, unspecified site (principal); E78.5 Hyperlipidemia, unspecified
CPT/HCPCS: 36415; 80053; 80061; 82550; 85652; 86140; 86200; 86430

== ENCOUNTER 2021-05-14 12:27 | Outpatient (CLI) | payer OTHER, SELFPAY ==
[2021-05-14 13:32] LABS: Alanine Aminotransferase 13 U/L (4-35); Albumin Level 3.8 g/dL (3.5-5.1); Alkaline Phosphatase 118 U/L (38-126); Anion Gap 3 mmol/L (8-16); Aspartate Amino Transferase 19 U/L (14-36); Bilirubin,Total 0.2 mg/dL (0.2-1.3); Blood Urea Nitrogen 21 mg/dL (7-17); CRP 1.5 mg/dL (<1.0); Calcium 9.2 mg/dL (8.4-10.2); Carbon Dioxide 28 mmol/L (22-30); Chloride 105 mmol/L (98-107); Cholesterol 171 mg/dL (0-200); Creatine Kinase 27 U/L (30-135); Estimated Glomerular Filt Rate 41; Glucose 94 mg/dL (65-110); HDL Direct 28 mg/dL; Potassium 3.7 mmol/L (3.4-5.0); Sodium 136 mmol/L (137-145); Triglycerides 194 mg/dL (<150)
[2021-05-14 13:41] LABS: LDL Cholesterol Direct 81 mg/dL
[2021-05-14 13:50] LABS: Erythrocyte Sedimentation Rate 30 mm/hr (0-20)
[2021-05-14 14:03] LABS: Rheumatoid Factor < 8.6 IU/ML (<12)
[2021-05-16 22:05] LABS: Anti Cyclic Citrullinated Pept <16 Units (<20)
== END 2021-05-14 12:28 | disposition home or self-care (01) ==
LOC: ANHLAB 12:29
PROVIDERS: PCP Internal Medicine; Visit Provider Nurse Practitioner
DX: E78.5 Hyperlipidemia, unspecified (principal); M79.10 Myalgia, unspecified site
CPT/HCPCS: 36415; 80053; 80061; 82550; 85652; 86140; 86200; 86430

== ENCOUNTER 2021-05-21 09:52 | Outpatient (CLI) | payer OTHER, SELFPAY ==
--- NOTE | ~2021-05-21 | XR_ITS ---
XR wrist RT min 3V DATE: 05/21/2021 10:12 INDICATION: Pain and swelling of right wrist for 2 weeks; no injury. TECHNIQUE: 4 views COMPARISON: 10/03/2011 right wrist FINDINGS: There is prominent osteoarthritic change and ulnar subluxation at the second and third meta carpophalangeal joints. There is mild osteoarthritis at the first carpometacarpal joint. There is osteophytic change at the f irst interphalangeal joint. No fracture, dislocation, periosteal reaction or bone destruction is detected. IMPRESSION: Polyarticular osteoarthritis, especially at second and third metacarpophalangeal joints Reviewed, dictated and finalized at location B. [employer] IMPRESSION: Polyarticular osteoarthritis, especially at second and third metaca rpophalangeal joints
[2021-05-21 11:25] LABS: Alanine Aminotransferase 16 U/L (4-35); Albumin Level 3.6 g/dL (3.5-5.1); Alkaline Phosphatase 155 U/L (38-126); Anion Gap 5 mmol/L (8-16); Aspartate Amino Transferase 22 U/L (14-36); Bilirubin,Total 0.4 mg/dL (0.2-1.3); Blood Urea Nitrogen 18 mg/dL (7-17); Calcium 8.8 mg/dL (8.4-10.2); Carbon Dioxide 28 mmol/L (22-30); Chloride 106 mmol/L (98-107); Cholesterol 210 mg/dL (0-200); Estimated Glomerular Filt Rate 45; Glucose 118 mg/dL (65-110); HDL Direct 28 mg/dL; Potassium 3.3 mmol/L (3.4-5.0); Sodium 139 mmol/L (137-145); Triglycerides 160 mg/dL (<150)
[2021-05-21 11:35] LABS: LDL Cholesterol Direct 123 mg/dL
== END 2021-05-21 09:53 | disposition home or self-care (01) ==
LOC: ANHIMG 09:57
PROVIDERS: PCP Internal Medicine; Visit Provider Internal Medicine
DX: I12.9 Hypertensive chronic kidney disease with stage 1 through stage 4 chronic kidney disease, or unspecified chronic kidney disease (principal); N18.30 Chronic kidney disease, stage 3 unspecified; E78.5 Hyperlipidemia, unspecified; M19.031 Primary osteoarthritis, right wrist; I10 Essential (primary) hypertension
CPT/HCPCS: 36415; 73110; 80053; 80061

== ENCOUNTER 2021-06-15 09:51 | Emergency (ER) | payer OTHER, SELFPAY ==
--- NOTE | ~2021-06-15 | CT_ITS ---
EXAMINATION: CT lumbar spine wo con DATE: 06/15/2021 12:07 INDICATION: Low back pain. TECHNIQUE: Computed tomography (CT) of the lumbar spine was performed without intravenous contrast. A utomated exposure control and iterative reconstruction technique were employed. The dose-length produ ct was 1199.73 mGy-cm. COMPARISON: CT lumbar spine 05/26/2016 FINDINGS: There are two 3 mm stones in right kidney. There is 11 degrees levoscoliosis of lumbar spin e. Vertebral body heights are normal. There is moderately decreased disc height at L4-L5 and severely decreased disc height at L5-S1 with endplate remodeling. The following disc levels are specifically discussed: L1-L2: The disc does not extend beyond the endplate margin. There is moderate bilateral facet joint o steoarthritis. There is no neural foraminal stenosis. There is no central canal stenosis. L2-L3: The disc is bulging. There is severe bilateral facet joint osteoarthritis. There is no neural foraminal stenosis. There is mild central canal stenosis. L3-L4: The disc is bulging. There is severe bilateral facet joint osteoarthritis. There is mild bilat eral neural foraminal stenosis. There is no central canal stenosis. L4-L5: The disc is bulging. There is severe bilateral facet joint osteoarthritis. There is mild bilat eral neural foraminal stenosis. There is mild central canal stenosis. L5-S1: The disc is bulging. There is severe bilateral facet joint osteoarthritis. There is mild bilat eral neural foraminal stenosis. There is no central canal stenosis. IMPRESSION: 1. Severe lower lumbar spondylosis, worsened from 05/26/2016. 2. Lumbar levoscoliosis. Reviewed, dictated and finalized at location A. SALESMAN
[2021-06-15 10:30] VITALS: BP 147/70; PULSE 69; RESP 16; TEMP 36.4; O2SAT 99
--- NOTE | 2021-06-15 11:24 | ED.BACK ---
HPI - Back Pain/Injury General Chief Complaint: Back Pain/Injury Stated Complaint: back pain Time Seen by Provider: 06/15/21 11:10 Source: patient Mode of arrival: ambulatory Limitations: no limitations History of Present Illness HPI Narrative: This is a 65 year old female that presents to the ER for low back pain. Ongoing over the last couple of months. No recent injury or trauma. Reports she recently saw her primary who put her on a Medrol dose pack without relief. She is out of her prescribed pain medication that she takes for her back. She has not taken any pain medication yet today. Denies fever, saddle anesthesia, or bowel/bladder incontinence. Related Data Home Medications Medication Instructions Recorded Confirmed nortriptyline 10 mg capsule 10 mg PO DAILY 02/25/19 05/29/21 benztropine 0.5 mg tablet 0.5 mg PO DAILY tablet 02/18/21 06/07/21 cholecalciferol (vitamin D3) 25 25 mcg PO DAILY 02/18/21 06/07/21 mcg (1,000 unit) capsule carbidopa 10 mg-levodopa 100 mg 1 tablet PO tablet 03/26/21 06/07/21 tablet aspirin 81 mg tablet,delayed 81 mg PO DAILY 05/02/21 05/29/21 release Allergies Allergy/AdvReac Type Severity Reaction Status Date / Time adhesive tape Allergy Mild rash Verified 06/07/21 13:01 tetanus immune globulin Allergy Mild HIVES Verified 06/07/21 13:01 cyclobenzaprine Allergy Unknown TINGLING Verified 06/07/21 13:01 SENSATION IN EXTREMITIES fluoxetine Allergy Unknown Unknown Verified 06/07/21 13:01 tetanus and diphtheria Allergy Unknown Swelling Verified 06/07/21 13:01 toxoids Tetanus Vaccines and Toxoid Allergy Unknown rash Verified 06/07/21 13:01 FLUOXETINE HCL Allergy Unknown RASH, Uncoded 06/07/21 13:01 SWELLING Review of Systems Review of Systems: CONSTITUTIONAL: Denies fever MUSCULOSKELETAL: Reports back pain, joint pain, and myalgia. NEUROLOGIC: Denies numbness, or weakness. All systems reviewed & are unremarkable except as noted in HPI and below PMFSH Past Medical History Medical History Bipolar disorder, unspecified Blockage of coronary artery of heart Chronic kidney disease, stage 3 (moderate) Chronic obstructive pulmonary disease, unspecified Essential (primary) hypertension Liver mass BERTA (obstructive sleep apnea) Screening for colon cancer Screening for osteoporosis Surgical History Surgical History History of breast surgery History of cholecystectomy History of hernia surgery History of hysterectomy History of liver biopsy Status post mastectomy Family History Family History Sibling Family history of malignant neoplasm Family history of diabetes mellitus in first degree relative Family history of lupus erythematosus Family history of malignant neoplasm of brain Family history of malignant neoplasm of breast Mother Family history of chronic obstructive pulmonary disease, Onset Age: 76 Patient's mother is Family history of emphysema Family history of malignant neoplasm of breast Father Family history of malignant neoplasm of esophagus, Onset Age: 54 Patient's father is Other Family history of cardiovascular disease Family history of malignant neoplasm of male breast Family history of obesity Social History Social History Social History: pt states she stop smoking 06/04/2021 pt has cut down to 1/2 a pack a day Smoking packs per day: 1 Smoking cigarettes per day: 20.0 Years smoked: 50 Smoking pack-years: 50.00 Tobacco type: cigarettes Second hand tobacco smoke exposure: Yes Alcohol intake: never Substance use: never Substance use type: does not use Gender identity (if verbalized by the patient): Female Spiritual care concerns: No Exam Na
[2021-06-15] MEDS: HYDROcodone/acetaminophen (*CRX) 10-325 MG TABLET 1 TAB PO (11:28)
[2021-06-15 11:58] VITALS: TEMP 36.4
[2021-06-15 13:26] VITALS: BP 134/85; PULSE 72; RESP 18; O2SAT 98
== END 2021-06-15 13:27 | disposition home or self-care (01) ==
PROVIDERS: Emergency Provider Emergency Medicine; PCP Internal Medicine
DX: M47.816 Spondylosis without myelopathy or radiculopathy, lumbar region (principal); I12.9 Hypertensive chronic kidney disease with stage 1 through stage 4 chronic kidney disease, or unspecified chronic kidney disease; N18.30 Chronic kidney disease, stage 3 unspecified; G47.33 Obstructive sleep apnea (adult) (pediatric); F31.9 Bipolar disorder, unspecified; Z90.10 Acquired absence of unspecified breast and nipple; F17.210 Nicotine dependence, cigarettes, uncomplicated; Z79.82 Long term (current) use of aspirin
CPT/HCPCS: 72131; 99284; A9270

== ENCOUNTER 2021-06-25 13:03 | Outpatient (CLI) | payer OTHER, SELFPAY ==
--- NOTE | ~2021-06-25 | CT_ITS ---
EXAMINATION: CT lumbar spine wo con DATE: 06/25/2021 13:27 INDICATION: Lumbago with right-sided sciatica TECHNIQUE: Computed tomography (CT) of the lumbar spine was performed without intravenous contrast. A utomated exposure control and iterative reconstruction technique were employed. The dose-length produ ct was 1120.86 mGy-cm. COMPARISON: 06/15/2021 FINDINGS: No acute fracture. Mild left-sided vertebral body height loss at L5 with 10 degree levocurvature of t he more cephalad lumbar spine. There is also a 1 cm left lateral listhesis of L4 on L5. Severe disc h eight loss at L5-S1, moderate disc height loss at L4-L5 and mild right-sided disc height loss at L1-L 2 through L3-L4. Couple nonobstructing stones measuring 1 mm and 2 mm in the right kidney. The visual ized paravertebral soft tissues are unremarkable. The following disc levels are specifically discusse d: T11-T12: The disc does not extend beyond the endplate margin. There is moderate right and mild to mod erate left facet joint osteoarthritis. There is no neural foraminal stenosis. There is no central can al stenosis. T12-L1: The disc does not extend beyond the endplate margin. There is mild to moderate bilateral face t joint osteoarthritis. There is no neural foraminal stenosis. There is no central canal stenosis. L1-L2: The disc does not extend beyond the endplate margin. There is moderate bilateral facet joint o steoarthritis. There is no neural foraminal stenosis. There is no central canal stenosis. L2-L3: Disc is mildly bulging. There is severe bilateral facet joint osteoarthritis. There is no neur al foraminal stenosis. There is mild central canal stenosis. L3-L4: Disc is bulging. There is severe bilateral facet joint osteoarthritis. There is mild bilateral neural foraminal stenosis. There is mild central canal stenosis. L4-L5: Disc is bulging. There is hypertrophy of the ligamentum flavum. There is severe bilateral fac et joint osteoarthritis. There is mild right and mild to moderate left neural foraminal stenosis. The re is moderate to severe central canal stenosis. L5-S1: Disc is mildly bulging. There is moderate right facet joint osteoarthritis. There is fusion ac ross the left facet joint. There is mild bilateral neural foraminal stenosis. There is more prominent narrowing lateral to the left neural foramina in the space between the left sacral ala and the left transverse processes of L5 There is no central canal stenosis. IMPRESSION: 1. No significant change in mild lumbar levoscoliosis and severe lower lumbar spondylosis. No acute o sseous abnormality. 2. Couple small nonobstructing right renal stones. Reviewed, dictated and finalized at location A. IMPRESSION: 1. No significant change in mild lumbar levoscoliosis and severe lower lumbar s pondylosis. No acute osseous abnormality. 2. Couple small nonobstructing right renal stones.
== END 2021-06-25 13:04 | disposition home or self-care (01) ==
LOC: ANHIMG 13:04
PROVIDERS: PCP Internal Medicine; Visit Provider Nurse Practitioner
DX: M47.817 Spondylosis without myelopathy or radiculopathy, lumbosacral region (principal); M48.07 Spinal stenosis, lumbosacral region; M54.41 Lumbago with sciatica, right side
CPT/HCPCS: 72131

== ENCOUNTER 2021-07-03 14:20 | Emergency (ER) | payer OTHER, SELFPAY ==
[2021-07-03 14:30] VITALS: BP 147/87; PULSE 87; RESP 16; TEMP 36.1; O2SAT 98
[2021-07-03 14:33] VITALS: BP 147/87; PULSE 87; RESP 16; TEMP 36.1; O2SAT 98
--- NOTE | 2021-07-03 14:34 | ED.BACK ---
HPI - Back Pain/Injury General Chief Complaint: Back Pain/Injury Stated Complaint: BACK PAIN Time Seen by Provider: 07/03/21 14:34 Source: patient Mode of arrival: ambulatory Limitations: no limitations History of Present Illness HPI Narrative: 65 y/o female presented for c/o worsening chronic low back pain over the last 2 weeks. Pain radiates to right buttock and right leg. Denies new injury. States she was seen by pain management today, but they cannot schedule injection until cleared with insurance. Taking [place] every 6 hours without relief, last prescribed 06/17/[address] Min. Pain worse on right, radiates down both legs. Rates 20/. Walks with cane. Denies saddle anesthesia, loss of bowel/bladder. Endorses nausea, constipation. Was seen in ER 06/15/21 for same complaint; CT at that time showed severe lower lumbar spondylosis worsened from 05/26/2016, lumbar levoscoliosis per report. She had another CT scan 06/25/21 which showed no significant change in mild lumbar levoscoliosis and severe lower lumbar spondylosis. No acute osseous abnormality, and nonobstructing renal stones. Related Data Home Medications Medication Instructions Recorded Confirmed nortriptyline 10 mg capsule 10 mg PO DAILY 02/25/19 07/03/21 benztropine 0.5 mg tablet 0.5 mg PO DAILY tablet 02/18/21 07/03/21 cholecalciferol (vitamin D3) 25 25 mcg PO DAILY 02/18/21 07/03/21 mcg (1,000 unit) capsule carbidopa 10 mg-levodopa 100 mg 1 tablet PO DAILY tablet 03/26/21 07/03/21 tablet aspirin 81 mg tablet,delayed 81 mg PO DAILY 05/02/21 07/03/21 release Allergies Allergy/AdvReac Type Severity Reaction Status Date / Time adhesive tape Allergy Mild rash Verified 07/03/21 14:22 tetanus immune globulin Allergy Mild HIVES Verified 07/03/21 14:22 cyclobenzaprine Allergy Unknown TINGLING Verified 07/03/21 14:22 SENSATION IN EXTREMITIES fluoxetine Allergy Unknown Unknown Verified 07/03/21 14:22 tetanus and diphtheria Allergy Unknown Swelling Verified 07/03/21 14:22 toxoids Tetanus Vaccines and Toxoid Allergy Unknown rash Verified 07/03/21 14:22 FLUOXETINE HCL Allergy Unknown RASH, Uncoded 07/03/21 14:22 SWELLING Review of Systems Review of Systems: CONSTITUTIONAL: Denies body aches, fever, chills EYES: Denies visual changes ENT: Denies rhinorrhea, congestion CARDIOVASCULAR: Denies chest pain, palpitations, or edema. RESPIRATORY: Denies cough or dyspnea. GASTROINTESTINAL: Denies abdominal pain, nausea, vomiting, or diarrhea. SKIN: Denies rash, itching, or wounds. MUSCULOSKELETAL: Reports back pain NEUROLOGIC: Denies headache, numbness, tingling, or weakness. PSYCH: Denies depression or anxiety. All systems reviewed & are unremarkable except as noted in HPI and below PMFSH Past Medical History Medical History Bipolar disorder, unspecified Blockage of coronary artery of heart Chronic kidney disease, stage 3 (moderate) Chronic obstructive pulmonary disease, unspecified Essential (primary) hypertension Liver mass BERTA (obstructive sleep apnea) Screening for colon cancer Screening for osteoporosis Surgical History Surgical History History of breast surgery History of cholecystectomy History of hernia surgery History of hysterectomy History of liver biopsy Status post mastectomy Family History Family History Sibling Family history of malignant neoplasm Family history of diabetes mellitus in first degree relative Family history of lupus erythematosus Family history of malignant neoplasm of brain Family history of malignant neoplasm of breast Mother Family history of chronic obstructive pulmonary disease, Onset Age: 76 Patient's mother is Family history of emphysema Family history of malignant neoplasm of breast Father Dece
[2021-07-03] MEDS: methylPREDNISolone SOD SUCC 125 MG VIAL IM (14:56)
== END 2021-07-03 15:20 | disposition home or self-care (01) ==
PROVIDERS: Emergency Provider Nurse Practitioner Family; PCP Internal Medicine
DX: M54.16 Radiculopathy, lumbar region (principal); I12.9 Hypertensive chronic kidney disease with stage 1 through stage 4 chronic kidney disease, or unspecified chronic kidney disease; N18.30 Chronic kidney disease, stage 3 unspecified; J44.9 Chronic obstructive pulmonary disease, unspecified; G47.33 Obstructive sleep apnea (adult) (pediatric); I25.10 Atherosclerotic heart disease of native coronary artery without angina pectoris; Z79.82 Long term (current) use of aspirin; Z87.891 Personal history of nicotine dependence
CPT/HCPCS: 96372; 99213; G0463; J2930

== ENCOUNTER 2021-07-11 13:10 | Outpatient (CLI) | payer OTHER, SELFPAY ==
--- NOTE | ~2021-07-11 | CT_ITS ---
EXAMINATION: CT lung screening DATE: 07/11/2021 13:40 INDICATION: Z72.0 - Tobacco use TECHNIQUE: Computed tomography (CT) of the chest was performed without intravenous contrast. Addition al 3D reconstructions utilizing coronal maximum intensity projection (MIP) were performed. Automated exposure control and iterative reconstruction technique were employed. The dose-length product was 15 5.86 mGy-cm. COMPARISON: 01/31/2020 FINDINGS: Mild emphysema. Again seen are few scattered 2 mm smaller calcified nodules consistent with old granu lomatous disease. Unchanged small linear bands of discoid atelectasis/scarring at the posterior media l right lung base. The previous noted mosaic attenuation with scattered groundglass opacity and small regions of relatively more lucent subsegmental air trapping likely related to small airway disease i s significantly more subtle on the current study. No new or enlarging pulmonary nodules, pulmonary ed tez or pleural effusion. Heart size is normal. No pathologically enlarged thoracic lymphadenopathy. B ilateral breast implants and surgical clips at the left axilla likely related to prior axillary lymph node dissection. Minimal change in a 12.6 x 8.3 cm left hepatic lobe cyst with nearly indiscernible internal septations. There are couple additional significant smaller likely benign low-attenuation le sions in the right hepatic lobe which have been present since 2008. Sclerotic T11 bone island. IMPRESSION: 1. . Lung-RADS category 1: Negative. Continue annual screening with noncontrast low-dose chest CT in 12 months. Reviewed, dictated and finalized at location D.
== END 2021-07-11 13:11 | disposition home or self-care (01) ==
PROVIDERS: PCP Internal Medicine; Visit Provider Nurse Practitioner Family
DX: Z12.2 Encounter for screening for malignant neoplasm of respiratory organs (principal); Z72.0 Tobacco use
CPT/HCPCS: 71271

== ENCOUNTER 2021-07-19 09:14 | Emergency (ER) | payer OTHER, SELFPAY ==
--- NOTE | ~2021-07-19 | CT_ITS ---
EXAMINATION: CT abdomen pelvis w con INDICATION: Nausea and vomiting, bloody stool, lower abdominal pain TECHNIQUE: Computed tomographic images of the abdomen and pelvis were obtained after the administrati on of 100 cc of Omnipaque 350 intravenous contrast. The dose-length product (DLP) was 984.74 mGy-cm. Automated exposure control and iterative reconstruction technique were employed. COMPARISON: 02/09/2020 FINDINGS: Minimal dependent atelectasis is present in the lung bases. The heart size is normal. There are changes of left mastectomy with implant reconstruction. There is an approximately 12.4 x 7.8 cm cystic lesion of the left hepatic lobe without significant change. Smaller cystic lesions are scatter ed throughout the liver, also not significantly changed. The spleen is normal. The gallbladder is olga gically absent. There is chronic moderate enlargement of the common bile duct and pancreatic duct. Pu nctate calcifications of the pancreas are consistent with chronic pancreatitis.. There is a stable 12 mm adenoma of the left adrenal gland. The right adrenal gland is normal. Cysts of the kidneys measur e up to 2.2 cm on the left. There are bilateral nonobstructing stones of the kidneys. There is calcif ied atherosclerosis of the aorta and many of the other arteries. No pathologically enlarged abdominal or pelvic lymph nodes are identified. There is severe lumbar spondylosis. There is no free intraperi toneal gas or evidence of bowel obstruction. Colonic diverticulosis is present without evidence of di verticulitis. There is circumferential wall thickening of the distal transverse colon and splenic fle xure. IMPRESSION: 1. Wall thickening of the distal transverse colon and splenic flexure, consistent with colitis. 2. Bilateral nonobstructing nephrolithiasis. Reviewed, dictated and finalized at location A. IMPRESSION: 1. Wall thickening of the distal transverse colon and splenic flexure, consiste nt with colitis. 2. Bilateral nonobstructing nephrolithiasis.
[2021-07-19 09:18] VITALS: BP 156/86; PULSE 81; RESP 18; TEMP 36.9
--- NOTE | 2021-07-19 09:41 | ED.GIBLEED ---
HPI - GI Bleed General Chief complaint: GI Bleed <Coco Vang PA-C - Last Filed: 07/19/21 11:11> Stated complaint: pooping blood x 3 days <Coco Vang PA-C - Last Filed: 07/19/21 11:11> Time Seen by Provider: 07/19/21 09:22 <Coco Vang PA-C - Last Filed: 07/19/21 11:11> Source: patient <JOSE Allison Last Filed: 07/19/21 11:11> Mode of arrival: ambulatory <JOSE Allison Last Filed: 07/19/21 11:11> Limitations: no limitations <Coco Vang PA-C - Last Filed: 07/19/21 11:11> History of Present Illness HPI Narrative: This is a 65-year-old female that presents to the emergency department for blood in the stool. Reports over the last 5 days she has noted dark stools. Reports today she noted bright red blood in the stool. She does have history of hemorrhoids. Reports her last colonoscopy was little over a year ago. She did have some polyps at that time. Reports she takes a daily aspirin. Otherwise denies any blood thinner use. Reports some nausea, diarrhea, and lower abdominal discomfort. Denies fever or vomiting. <Coco Vang PA-C - Last Filed: 07/19/21 11:11> Related Data Home medications: Home Medications Medication Instructions Recorded Confirmed nortriptyline 10 mg capsule 10 mg PO DAILY 02/25/19 07/18/21 benztropine 0.5 mg tablet 0.5 mg PO DAILY tablet 02/18/21 07/18/21 cholecalciferol (vitamin D3) 25 25 mcg PO DAILY 02/18/21 07/18/21 mcg (1,000 unit) capsule carbidopa 10 mg-levodopa 100 mg 1 tablet PO DAILY tablet 03/26/21 07/18/21 tablet aspirin 81 mg tablet,delayed 81 mg PO DAILY 05/02/21 07/18/21 release <JOSE Allison Last Filed: 07/19/21 11:11> Allergies/Adverse reactions: Allergies Allergy/AdvReac Type Severity Reaction Status Date / Time adhesive tape Allergy Mild rash Verified 07/19/21 09:24 tetanus immune globulin Allergy Mild HIVES Verified 07/19/21 09:24 cyclobenzaprine Allergy Unknown TINGLING Verified 07/19/21 09:24 SENSATION IN EXTREMITIES fluoxetine Allergy Unknown Unknown Verified 07/19/21 09:24 tetanus and diphtheria Allergy Unknown Swelling Verified 07/19/21 09:24 toxoids Tetanus Vaccines and Toxoid Allergy Unknown rash Verified 07/19/21 09:24 FLUOXETINE HCL Allergy Unknown RASH, Uncoded 07/03/21 14:22 SWELLING <Coco Vang PA-C - Last Filed: 07/19/21 11:11> Review of Systems Review of Systems: CONSTITUTIONAL: Denies fever GASTROINTESTINAL: Reports abdominal pain, nausea, and diarrhea. Denies vomiting. GENITOURINARY: Denies dysuria <Coco Vang PA-C - Last Filed: 07/19/21 11:11> All systems reviewed & are unremarkable except as noted in HPI and below <Coco Vang PA-C - Last Filed: 07/19/21 11:11> [facility] Past Medical History Medical History: Medical History (Updated 07/19/21 @ 11:06 by Coco Vang PA-C) Bipolar disorder, unspecified Blockage of coronary artery of heart Chronic kidney disease, stage 3 (moderate) Chronic obstructive pulmonary disease, unspecified Essential (primary) hypertension Inflammatory arthritis Liver mass BERTA (obstructive sleep apnea) Screening for colon cancer Screening for osteoporosis <Coco Vang PA-C - Last Filed: 07/19/21 11:11> Surgical History Surgical History: Surgical History History of breast surgery History of cholecystectomy History of hernia surgery History of hysterectomy History of liver biopsy Status post mastectomy <Coco Vang PA-C - Last Filed: 07/19/21 11:11> Family History Family History: Family History Sibling Family history of malignant neoplasm Family history of diabetes mellitus in first degree relative Family history of lupus erythematosus Family history of malignant neoplasm of brain Family history of malignant neoplasm of
[2021-07-19 09:59] VITALS: BP 143/75; PULSE 60
[2021-07-19 10:00] VITALS: BP 149/72; PULSE 64
[2021-07-19 10:00] LABS: Basophils Absolute Auto 0.1 K/mm3 (0.0-0.1); Basophils Percent Auto 0.4 % (0.2-1.2); Eosinophils Absolute Auto 0.3 K/mm3 (0-0.3); Eosinophils Percent Auto 1.7 % (0-4.4); Hematocrit 38.7 % (37.0-47.0); Hemoglobin 12.2 g/dL (12.0-15.0); Immature Granulocyte Absolute 0.08 K/mm3 (0.00-0.031); Immature Granulocyte Percent A 0.5 % (0-0.5); Lymphocytes Absolute Auto 1.61 K/mm3 (0.9-3.2); Lymphocytes Percent Auto 10.2 % (18.3-44.2); Mean Corpuscular HGB Conc 31.5 g/dl (32-36); Mean Corpuscular Hemoglobin 29.4 pg (26-34); Mean Corpuscular Volume 93.3 fl (80-100); Monocytes Absolute Auto 1.2 K/mm3 (0.1-0.6); Monocytes Percent Auto 7.6 % (2.6-8.5); Neutrophils Absolute Auto 12.5 K/mm3 (1.3-6.7); Neutrophils Percent Auto 79.6 % (45.5-73.1); Platelet Count Result 194 k/mm3 (150-375); Red Blood Count 4.15 M/mm3 (4.2-5.4); Red Cell Distribution Width 15.7 % (11.5-14.5); White Blood Count 15.7 K/mm3 (4.5-10.0)
[2021-07-19 10:02] VITALS: BP 142/79; PULSE 74
[2021-07-19 10:12] LABS: Alanine Aminotransferase 12 U/L (4-35); Albumin Level 3.4 g/dL (3.5-5.1); Alkaline Phosphatase 116 U/L (38-126); Anion Gap 6 mmol/L (8-16); Aspartate Amino Transferase 28 U/L (14-36); Bilirubin,Total 0.8 mg/dL (0.2-1.3); Blood Urea Nitrogen 22 mg/dL (7-17); Calcium 7.7 mg/dL (8.4-10.2); Carbon Dioxide 23 mmol/L (22-30); Chloride 107 mmol/L (98-107); Estimated CRCL calculation 39 ml/min; Estimated Glomerular Filt Rate 41; Glucose 108 mg/dL (65-110); Potassium 4.4 mmol/L (3.4-5.0); Sodium 136 mmol/L (137-145)
[2021-07-19 10:14] LABS: Prothrombin Time 13.1 Seconds (11.1-14.7)
[2021-07-19 10:15] LABS: Partial Thromboplastin Time 38.5 SECONDS (22.3-36.8)
[2021-07-19] MEDS: SODIUM CHLORIDE 0.9% IV 500 ML 999 ML IV CONT (10:27)
== END 2021-07-19 11:50 | disposition home or self-care (01) ==
PROVIDERS: Physician Assistant; Emergency Provider General Practice; PCP Internal Medicine
DX: K52.9 Noninfective gastroenteritis and colitis, unspecified (principal); I12.9 Hypertensive chronic kidney disease with stage 1 through stage 4 chronic kidney disease, or unspecified chronic kidney disease; N18.30 Chronic kidney disease, stage 3 unspecified; J44.9 Chronic obstructive pulmonary disease, unspecified; G47.33 Obstructive sleep apnea (adult) (pediatric); M19.90 Unspecified osteoarthritis, unspecified site; Z79.82 Long term (current) use of aspirin; Z90.10 Acquired absence of unspecified breast and nipple; F17.210 Nicotine dependence, cigarettes, uncomplicated; N20.0 Calculus of kidney
CPT/HCPCS: 36415; 74177; 80053; 85025; 85610; 85730; 86850; 86900; 86901; 96360; 99284; J7040; Q9967

== ENCOUNTER 2021-08-12 07:33 | Emergency (ER) | payer OTHER, SELFPAY ==
[2021-08-12] VITALS (17 sets, daily range): BP systolic 160–189; BP diastolic 94–135; PULSE 66–81; RESP 13–26; TEMP 36.3; O2SAT 90–100
--- NOTE | ~2021-08-12 | XR_ITS ---
EXAMINATION: XR chest 2V DATE: 08/12/2021 08:01 INDICATION: COPD and shortness of breath TECHNIQUE: AP and lateral views of the chest are obtained. COMPARISON: 11/15/2019 FINDINGS: The lungs are free of acute opacities. There is no pleural effusion or pneumothorax. The ca rdiomediastinal silhouette is normal. There is mild thoracic spondylosis. Surgical clips are noted in the left axilla. IMPRESSION: 1. No acute cardiopulmonary abnormality. Reviewed, dictated and finalized at location A.
--- NOTE | 2021-08-12 07:36 | ECG_ITS ---
Measurements Intervals [place] Rate: 65 P: 59 IN: 184 QRS: -53 QRSD: 103 T: 46 QT: 417 QTc: 434 Interpretive Statements SINUS RHYTHM LEFT ANTERIOR FASCICULAR BLOCK LEFT VENTRICULAR HYPERTROPHY WITH ST-T CHANGE BASELINE ARTIFACT- II, III, AVR, AVL, AVF, V1-V6 ABNORMAL ECG Electronically Signed On 08-12-2021 7:50:35 CDT by Varghese Rocha D.O.
[2021-08-12 07:50] LABS: Basophils Absolute Auto 0.1 K/mm3 (0.0-0.1); Basophils Percent Auto 0.5 % (0.2-1.2); Eosinophils Absolute Auto 0.1 K/mm3 (0-0.3); Eosinophils Percent Auto 1.2 % (0-4.4); Hematocrit 42.3 % (37.0-47.0); Hemoglobin 13.7 g/dL (12.0-15.0); Immature Granulocyte Absolute 0.04 K/mm3 (0.00-0.031); Immature Granulocyte Percent A 0.4 % (0-0.5); Lymphocytes Absolute Auto 2.44 K/mm3 (0.9-3.2); Lymphocytes Percent Auto 24.1 % (18.3-44.2); Mean Corpuscular HGB Conc 32.4 g/dl (32-36); Mean Corpuscular Hemoglobin 29.3 pg (26-34); Mean Corpuscular Volume 90.6 fl (80-100); Mean Platelet Volume 11.2 fl (7.4-10.4); Monocytes Absolute Auto 0.8 K/mm3 (0.1-0.6); Monocytes Percent Auto 7.7 % (2.6-8.5); Neutrophils Absolute Auto 6.7 K/mm3 (1.3-6.7); Neutrophils Percent Auto 66.1 % (45.5-73.1); Platelet Count Result 288 k/mm3 (150-375); Red Blood Count 4.67 M/mm3 (4.2-5.4); Red Cell Distribution Width 14.9 % (11.5-14.5); White Blood Count 10.1 K/mm3 (4.5-10.0)
[2021-08-12 08:02] LABS: Alanine Aminotransferase 11 U/L (6-35); Albumin Level 3.9 g/dL (3.5-5.1); Alkaline Phosphatase 165 U/L (38-126); Anion Gap 5 mmol/L (8-16); Aspartate Amino Transferase 27 U/L (14-36); Bilirubin,Total 0.4 mg/dL (0.2-1.3); Blood Urea Nitrogen 17 mg/dL (7-17); Calcium 8.9 mg/dL (8.4-10.2); Carbon Dioxide 26 mmol/L (22-30); Chloride 109 mmol/L (98-107); Estimated CRCL calculation 36 ml/min; Estimated Glomerular Filt Rate 38; Glucose 113 mg/dL (65-110); Potassium 3.6 mmol/L (3.4-5.0); Sodium 140 mmol/L (137-145)
--- NOTE | 2021-08-12 10:39 | ED.SOB ---
HPI - SOB/Dyspnea General Chief Complaint: Shortness of Breath/Dyspnea Stated Complaint: mult c/o Time Seen by Provider: 08/12/21 07:35 Mode of arrival: EMS Limitations: no limitations History of Present Illness HPI Narrative: 65-year-old with a history of hypertension, COPD, bipolar disorder, Parkinson's here with complaints of shortness of breath nonproductive cough for past few days. Patient states that she has been using her inhalers. She denies any fever or chills. She denies any chest pain. Continues to smoke MD elicited complaint: shortness of breath and cough Pertinent past history: COPD Onset (ago): day(s) (3) Timing: constant Severity: moderate Exacerbating factors: nothing Relieving factors: bronchodilators Known history of: COPD Associated symptoms: denies other symptoms Related Data Home oxygen amount: none Home Medications Medication Instructions Recorded Confirmed nortriptyline 10 mg capsule 10 mg PO DAILY 02/25/19 07/18/21 benztropine 0.5 mg tablet 0.5 mg PO DAILY tablet 02/18/21 07/18/21 cholecalciferol (vitamin D3) 25 25 mcg PO DAILY 02/18/21 07/18/21 mcg (1,000 unit) capsule carbidopa 10 mg-levodopa 100 mg 1 tablet PO DAILY tablet 03/26/21 07/18/21 tablet aspirin 81 mg tablet,delayed 81 mg PO DAILY 05/02/21 07/18/21 release Allergies Allergy/AdvReac Type Severity Reaction Status Date / Time adhesive tape Allergy Mild rash Verified 08/12/21 07:37 tetanus immune globulin Allergy Mild HIVES Verified 08/12/21 07:37 cyclobenzaprine Allergy Unknown TINGLING Verified 08/12/21 07:37 SENSATION IN EXTREMITIES fluoxetine Allergy Unknown Unknown Verified 08/12/21 07:37 tetanus and diphtheria Allergy Unknown Swelling Verified 08/12/21 07:37 toxoids Tetanus Vaccines and Toxoid Allergy Unknown rash Verified 08/12/21 07:37 FLUOXETINE HCL Allergy Unknown RASH, Uncoded 08/12/21 07:37 SWELLING Review of Systems Review of Systems: All systems reviewed & are unremarkable except as noted in HPI and below Constitutional: Constitutional: Reports no additional constitutional complaints Eyes: Eyes: Reports no additional eye complaints Cardiovascular: Cardiovascular: Reports no additional cardiovascular complaints Respiratory: Respiratory: Reports as per HPI Gastrointestinal: Gastrointestinal: Reports no additional gastrointestinal complaints Genitourinary: Genitourinary: Reports no additional female genitourinary complaints Musculoskeletal: Musculoskeletal: Reports no additional musculoskeletal complaints Integumentary/Breasts: Skin/Breast: Reports system reviewed and no additional complaints, except as docu Neurologic: Reports system reviewed and no additional complaints, except as documented [facility] Past Medical History Medical History Bipolar disorder, unspecified Blockage of coronary artery of heart Chronic kidney disease, stage 3 (moderate) Chronic obstructive pulmonary disease, unspecified Essential (primary) hypertension Inflammatory arthritis Liver mass BERTA (obstructive sleep apnea) Screening for colon cancer Screening for osteoporosis Surgical History Surgical History History of breast surgery History of cholecystectomy History of hernia surgery History of hysterectomy History of liver biopsy Status post mastectomy Family History Family History Sibling Family history of malignant neoplasm Family history of diabetes mellitus in first degree relative Family history of lupus erythematosus Family history of malignant neoplasm of brain Family history of malignant neoplasm of breast Mother Family history of chronic obstructive pulmonary disease, Onset Age: 76 Patient's mother is Family history of emphysema Family history of malignant neoplasm of breast Father Family histo
== END 2021-08-12 11:06 | disposition home or self-care (01) ==
PROVIDERS: Emergency Provider Family Medicine; PCP Internal Medicine
DX: J44.1 Chronic obstructive pulmonary disease with (acute) exacerbation (principal); I12.9 Hypertensive chronic kidney disease with stage 1 through stage 4 chronic kidney disease, or unspecified chronic kidney disease; N18.30 Chronic kidney disease, stage 3 unspecified; Z79.82 Long term (current) use of aspirin; M19.90 Unspecified osteoarthritis, unspecified site; G47.33 Obstructive sleep apnea (adult) (pediatric); F31.9 Bipolar disorder, unspecified; Z90.10 Acquired absence of unspecified breast and nipple; F17.210 Nicotine dependence, cigarettes, uncomplicated; I44.4 Left anterior fascicular block; I51.7 Cardiomegaly
CPT/HCPCS: 36415; 71046; 80053; 85025; 93005; 99284

== ENCOUNTER 2021-09-06 11:15 | Outpatient (RCR) | payer OTHER, SELFPAY ==
--- NOTE | 2021-08-23 10:27 | PTOPEVAL ---
PHYSICAL THERAPY INITIAL EVALUATION. Thank you for referring Eduarda Wall to [facility].? The patient is scheduled to be seen for therapy? 2x/week for 4 weeks. Please review, sign, date and return this plan of care CHUCKIE. I agree with and certify that the following plan of care is medically necessary. Referring Physician Date Attending Provider: Antoinette Mccain, [employer] REPAIRER INSPECTOR-BC *PT Outpatient Evaluation Start: 08/22/21 Evaluation Information Diagnosis Low back pain Onset 7 years Subjective Information Pt states she has 3 bone spurs Query Text:As Reported By Patient/ in her neck, a torn rotator Family cuff on her L shoulder, 2 buldging disks in her back, with sciatica, and LE edema. This is the first time she has sought out treatment for her back pain. Pt reports use of a cane for 3-4 years. Pt reports no recent falls. Pt reports she can sit for as long as she wants, she can stand for a few minutes before she needs to sit down. Pt states she has COPD so she is very inactive due to this. Pt states she sleeps in a recliner and stays in it most of the day, she reports getting up maybe 5-8 times a day. Pain Assessment Self Report Pain Assessment Lower Back Reported Pain Level 4 Pain Description Numbness,Stabbing,Tingling Pain Radiation Right Leg Lowest Pain Intensity 4 Greatest Pain Intensity 12 Pain Aggravating Factors Sitting Pain Relief Interventions Used By Heat,Medication Patient Lumbar ROM Lumbar Flexion Active [place] Lumbar Extension (0-40) 10 Lateral Flexion 2 in above lateral knee joint Query Text:Active Hands to: line bilaterally Lateral Rotation Right (0-45) 15 Lateral Rotation Left (0-45) 15 Lumbar Comments Reports of pain with all lumbar movements - reports tightness, declines sharp pain Lower Extremity Range of Motion General Lower Extremity Range of Motion WFL/Left,WFL/Right Lower Extremity Muscle Strength Testing Gross Lower Extremity Strength yoav hip flexion 4-/5 yoav knee extension 4/5 yoav knee flexion 3+/5 yoav hip abductio
--- NOTE | 2021-09-03 11:15 | PCPTNOTE ---
Patient called & cancelled scheduled appointment this date due to feeling ill.
--- NOTE | 2021-09-09 13:16 | PCPTNOTE ---
Patient called & cancelled scheduled appointment this date due to increased dizziness.
--- NOTE | 2021-09-16 13:27 | PCPTNOTE ---
Patient called & cancelled scheduled appointment this date due to having blooding stool.
--- NOTE | 2021-09-24 12:48 | PCPTNOTE ---
Patient did not show up for scheduled appointment this date. Will call to follow up as this was her last scheduled appointment.
--- NOTE | 2021-09-24 12:52 | PCPTNOTE ---
Attending Provider: Antoinette Mccain, BOBBIN INSPECTOR- Patient:Eduarda Wall Date of :1955 PHYSICAL THERAPY DISCHARGE SUMMARY. Patient has not returned for any further treatments since 09/06/2021, therefore she will be discharged at this time. Patient?s initial visit was on 08/22/2021 and she had a total of 3 visits. Patient no showed her re-evaluation this date. Upon calling the patient she states she has a lot going on health cade and cannot commit to therapy. Possible home health PT would be a better option for her. The goals have been not met. Thank you for referring this patient to [facility]. Please review, sign, date and return this discharge summary CHUCKIE. I have been updated about the patient's current status and I agree with discharge from the above service at this time. Referring Physician Date
== END 2021-09-30 14:49 | disposition home or self-care (01) ==
LOC: ANHPT 11:15
PROVIDERS: PCP Internal Medicine; Visit Provider Nurse Practitioner Family
DX: M54.16 Radiculopathy, lumbar region (principal); M54.50 Low back pain, unspecified
CPT/HCPCS: 97110; 97161

== ENCOUNTER 2021-09-10 00:24 | Day surgery (SDC) | payer OTHER, SELFPAY ==
[2021-08-26 13:30] VITALS: BMI 33.3
[2021-09-10 06:32] VITALS: BP 163/80; PULSE 74; RESP 20; TEMP 36.3; O2SAT 95
[2021-09-10] MEDS: LACTATED RINGERS 1,000 ML 150 ML IV CONT (06:40)
--- NOTE | 2021-09-10 07:24 | WPDHPUPDATE1 ---
History and Physical Update Update Date/Time: 09/10/21 07:24 History and Physical has been reviewed, including an updated exam of the patient. There are NO changes in the patient's condition. Risks, benefits, and alternatives have been discussed and questions answered. Patient agrees to proceed with procedure.
[2021-09-10 07:40] VITALS: BP 147/65; PULSE 73; RESP 21; O2SAT 100
--- NOTE | 2021-09-10 07:40 | WPDANESEPPF ---
Anes - Initial Pre Proc Eval Procedure: Operation Date: 09/10/21 07:30 Proposed Procedures p Esophagogastroduodenoscopy - Yandel Carrera MD Date/Time: 09/10/21 07:40 Surgeon: Yandel Carrera MD Pre Op Diagnosis: nausea, black stool Patient Data Age: 65 Gender: F Height: 1.55 m Weight: 80.8 kg Last Vital Signs Temp 97.3 F L 09/10/21 06:32 Pulse 74 09/10/21 06:32 Resp 20 09/10/21 06:32 BP 163/80 H 09/10/21 06:32 Pulse Ox 95 09/10/21 06:32 O2 Del Method Room Air 09/10/21 06:32 Allergies Allergy/AdvReac Type Severity Reaction Status Date / Time adhesive tape Allergy Mild rash Verified 09/10/21 06:25 tetanus immune globulin Allergy Mild HIVES Verified 09/10/21 06:25 cyclobenzaprine Allergy Unknown TINGLING Verified 09/10/21 06:25 SENSATION IN EXTREMITIES fluoxetine Allergy Unknown Unknown Verified 09/10/21 06:25 tetanus and diphtheria Allergy Unknown Swelling Verified 09/10/21 06:25 toxoids Tetanus Vaccines and Toxoid Allergy Unknown rash Verified 09/10/21 06:25 FLUOXETINE HCL Allergy Unknown RASH, Uncoded 09/10/21 06:25 SWELLING Home Medications Medication Instructions Recorded Confirmed Type nortriptyline 10 mg capsule 10 mg PO DAILY 02/25/19 08/26/21 History levalbuterol HCl 1.25 mg/3 mL 1.25 mg (3 mL) inhalation TID PRN 02/12/21 08/26/21 Rx solution for nebulization shortness of breath or wheezing #300 mL benztropine 0.5 mg tablet 0.5 mg PO DAILY 02/18/21 08/26/21 History cholecalciferol (vitamin D3) 25 25 mcg PO DAILY 02/18/21 08/26/21 History mcg (1,000 unit) capsule aspirin 81 mg tablet,delayed 81 mg PO DAILY 05/02/21 08/26/21 History release potassium chloride 10 mEq 10 meq PO DAILY #30 tabs 05/24/21 08/26/21 Rx tablet,extended release fluticasone fur. 100 mcg-umeclid 1 inh inhalation Q24H 30 days #60 02/23/22 05/23/22 Rx 62.5 mcg-vilant 25 mcg ea inhalat.powder (Trelegy Ellipta) atorvastatin 20 mg tablet 20 mg PO DAILY #90 tabs 06/21/21 08/26/21 Rx amlodipine 10 mg tablet See Rx Instructions .Route 07/22/21 08/26/21 Rx .COMPLEX #90 tabs bupropion HCl 150 mg 24 hr tablet, 150 mg PO QAM #90 tabs 07/29/21 08/26/21 Rx extended release carvedilol 3.125 mg tablet See Rx Instructions .Route 07/29/21 08/26/21 Rx .COMPLEX #60 tabs albuterol sulfate 90 mcg/actuation See Rx Instructions .Route 08/01/21 08/26/21 Rx aerosol inhaler .COMPLEX #8.5 grams hydrocodone 10 mg-acetaminophen 1 tablet PO Q6H PRN pain #120 tabs 08/14/21 08/26/21 Rx 325 mg tablet linaclotide 145 mcg capsule 145 mcg PO DAILY constipation 1 08/21/21 08/26/21 Rx (Linzess) month #30 caps omeprazole 40 mg capsule,delayed 40 mg PO BID 1 month #60 caps 08/21/21 08/26/21 Rx release clotrimazole 10 mg dimas 10 mg mucous membrane TID #21 tabs 08/22/21 08/26/21 Rx lisinopril 40 mg tablet 40 mg PO DAILY #90 tabs 08/28/21 09/10/21 Rx ondansetron HCl 4 mg tablet 4 mg PO Q8H PRN nausea and 09/05/21 09/10/21 Rx vomiting #30 tabs Patient hx anesthesia problems: none Family hx anesthesia problems: none Results Review: All pre-operative results and documents have been reviewed as part of the pre-operative evaluation. [facility] Past Medical History Medical History (Updated 09/10/21 @ 07:38 by Yandel Carrera MD) Abnormal CT scan Bipolar disorder, unspecified Blockage of coronary artery of heart Chronic kidney disease, stage 3 (moderate) Chronic obstructive pulmonary disease, unspecified Constipation Essential (primary) hypertension Inflammatory arthritis Liver mass Marijuana use Nausea & vomiting BERTA (obstructive sleep apnea) Screening for colon cancer Screening for osteoporosis Surgical History Surgical History History of breast surgery History of cholecystectomy History of hernia surgery History of hysterectomy History of liver biopsy Status post ma
[2021-09-10 07:50] VITALS: BP 147/60; PULSE 68; RESP 23; O2SAT 100
[2021-09-10 07:59] VITALS: BP 159/90; PULSE 61; RESP 22; O2SAT 98
== END 2021-09-10 08:20 | disposition home or self-care (01) ==
PROVIDERS: PCP Internal Medicine; Visit Provider Internal Medicine Gastroenterology
PROC: 0DJ08ZZ Inspection of Upper Intestinal Tract, Via Natural or Artificial Opening Endoscopic (ICD-10-PCS; CPT 43235; principal; 2021-09-10 07:30)
DX: K31.84 Gastroparesis (principal); K29.50 Unspecified chronic gastritis without bleeding; I12.9 Hypertensive chronic kidney disease with stage 1 through stage 4 chronic kidney disease, or unspecified chronic kidney disease; N18.30 Chronic kidney disease, stage 3 unspecified; G47.33 Obstructive sleep apnea (adult) (pediatric); F31.9 Bipolar disorder, unspecified; J44.9 Chronic obstructive pulmonary disease, unspecified; I25.10 Atherosclerotic heart disease of native coronary artery without angina pectoris; F17.210 Nicotine dependence, cigarettes, uncomplicated; F12.90 Cannabis use, unspecified, uncomplicated; E66.9 Obesity, unspecified; Z68.33 Body mass index [BMI] 33.0-33.9, adult; Z79.51 Long term (current) use of inhaled steroids; Z79.891 Long term (current) use of opiate analgesic
CPT/HCPCS: 43239; 88305; J2704; J7120

== ENCOUNTER 2021-09-19 14:13 | Outpatient (CLI) | payer OTHER, SELFPAY ==
--- NOTE | ~2021-09-19 | XR_ITS ---
XR foot LT standing 2V DATE: 09/19/2021 14:58 INDICATION: Osteoarthritis TECHNIQUE: Standing AP and lateral views COMPARISON: None FINDINGS: Hallux valgus and bunion deformity. Mild posterior calcaneal enthesopathy. No fracture, dislocation, periosteal reaction or bone destruction. IMPRESSION: Hallux valgus and bunion deformity Mild posterior calcaneal enthesopathy Reviewed, dictated and finalized at location A.
--- NOTE | ~2021-09-19 | XR_ITS ---
XR foot RT standing 2V DATE: 09/19/2021 14:58 INDICATION: Osteoarthritis TECHNIQUE: Standing AP and lateral views COMPARISON: None FINDINGS: Mild posterior calcaneal enthesopathy. No fracture or dislocation, periosteal reaction or bone destruction. IMPRESSION: Mild posterior calcaneal enthesopathy Reviewed, dictated and finalized at location A.
--- NOTE | ~2021-09-19 | XR_ITS ---
XR hand BI arthritis min 3V DATE: 09/19/2021 14:58 INDICATION: Joint pain. History of osteoarthritis, lupus and Parkinson's TECHNIQUE: 4 views of each hand COMPARISON: None FINDINGS: There is polyarticular osteoarthritis hands involving bilateral first carpometacarpal joint , multiple bilateral interphalangeal joints and the right second and third metacarpophalangeal joints . No erosive change. No fracture, dislocation, periosteal reaction or bone destruction or chondrocalcinosis of the hands. IMPRESSION: Polyarticular osteoarthritis Reviewed, dictated and finalized at location A.
[2021-09-19 14:54] LABS: Alanine Aminotransferase 13 U/L (6-35); Albumin Level 3.7 g/dL (3.5-5.1); Alkaline Phosphatase 164 U/L (38-126); Anion Gap 5 mmol/L (8-16); Aspartate Amino Transferase 27 U/L (14-36); Bilirubin,Total 0.3 mg/dL (0.2-1.3); Blood Urea Nitrogen 21 mg/dL (7-17); Calcium 8.4 mg/dL (8.4-10.2); Carbon Dioxide 28 mmol/L (22-30); Chloride 106 mmol/L (98-107); Cholesterol 131 mg/dL (0-200); Estimated Glomerular Filt Rate 35; Glucose 109 mg/dL (65-110); HDL Direct 34 mg/dL; Potassium 3.8 mmol/L (3.4-5.0); Sodium 139 mmol/L (137-145); Triglycerides 173 mg/dL (<150)
[2021-09-19 15:00] LABS: LDL Cholesterol Direct 57 mg/dL
[2021-09-23 19:31] LABS: SM Antibody <1.0; SM/RNP Antibody <1.0; SS-A <1.0; SS-B <1.0
== END 2021-09-19 14:14 | disposition home or self-care (01) ==
PROVIDERS: Internal Medicine Cardiovascular Disease; PCP Internal Medicine; Visit Provider Internal Medicine
DX: M54.16 Radiculopathy, lumbar region (principal); M75.42 Impingement syndrome of left shoulder; Z85.3 Personal history of malignant neoplasm of breast; M19.042 Primary osteoarthritis, left hand; M19.041 Primary osteoarthritis, right hand; M77.32 Calcaneal spur, left foot; M77.31 Calcaneal spur, right foot; M20.12 Hallux valgus (acquired), left foot
CPT/HCPCS: 36415; 73130; 73620; 80053; 80061; 86038; 86225; 86235

== ENCOUNTER 2021-10-15 09:09 | Outpatient (CLI) | payer OTHER, SELFPAY ==
--- NOTE | ~2021-10-15 | NM_ITS ---
EXAM: NM gastric emptying study DATE: 10/15/2021 14:22 INDICATION: Nausea and vomiting, unspecified. TECHNIQUE: A gastric emptying study was performed using the methodology of Naga ARORA, et al. J Nucl Med 2007; 48:568-572. The patient was given a meal consisting of 2 scrambled eggs labeled with 1.059 mCi Tc-99m sulfur colloid, 2 slices of toast, two packages of jam, and chocolate milk. Simultaneous anterior and posterior 1-min images of the abdomen were obtained with the patient supine at multiple time points over a total period of 4 hours. The geometric mean of anterior and posterior views was de termined, and the percentage retention was calculated for each time point. COMPARISON: CT abdomen and pelvis 07/19/2021 FINDINGS: Gastric retention of the radiotracer-labeled meal was 45%, 39%, and 31% at the 1-hour, 2-h our, and 4-hour time points, respectively. With this technique, apparent rapid gastric emptying is oconnell ggested by <30% gastric retention at 1 hour. Delayed gastric emptying is defined by gastric retention of >90% at 1 hour, >60% retention at 2 hours, or >10% retention at 4 hours. IMPRESSION: 1. Delayed gastric emptying. Reviewed, dictated and finalized at location A.
[2021-10-15 10:34] LABS: Alanine Aminotransferase 9 U/L (6-35); Albumin Level 3.3 g/dL (3.5-5.1); Alkaline Phosphatase 141 U/L (38-126); Anion Gap 3 mmol/L (8-16); Aspartate Amino Transferase 23 U/L (14-36); Bilirubin,Total 0.4 mg/dL (0.2-1.3); Blood Urea Nitrogen 19 mg/dL (7-17); Calcium 8.6 mg/dL (8.4-10.2); Carbon Dioxide 30 mmol/L (22-30); Chloride 107 mmol/L (98-107); Cholesterol 141 mg/dL (0-200); Estimated Glomerular Filt Rate 38; Glucose 100 mg/dL (65-110); HDL Direct 27 mg/dL; Potassium 3.6 mmol/L (3.4-5.0); Sodium 140 mmol/L (137-145); Triglycerides 158 mg/dL (<150)
[2021-10-15 10:45] LABS: LDL Cholesterol Direct 58 mg/dL
== END 2021-10-15 09:10 | disposition home or self-care (01) ==
PROVIDERS: PCP Internal Medicine; Visit Provider Internal Medicine Gastroenterology
DX: E78.5 Hyperlipidemia, unspecified (principal); I10 Essential (primary) hypertension; R11.2 Nausea with vomiting, unspecified; N18.30 Chronic kidney disease, stage 3 unspecified; K30 Functional dyspepsia
CPT/HCPCS: 36415; 78264; 80053; 80061; A9541

== ENCOUNTER 2021-10-24 15:21 | Emergency (ER) | payer OTHER, SELFPAY ==
--- NOTE | ~2021-10-24 | CT_ITS ---
EXAMINATION: CT cervical spine wo con DATE: 10/24/2021 19:28 INDICATION: Neck pain. Fall. TECHNIQUE: Computed tomography (CT) of the cervical spine was performed without intravenous contrast. Automated exposure control and iterative reconstruction technique were employed. The dose-length pro duct was 298.92 mGy-cm. COMPARISON: None FINDINGS: There are changes of left mastoidectomy with cochlear implant. There is mild emphysema. The re is 3 degrees levocurvature of cervical spine. There is kyphosis of cervical spine. There is 2 mm a nterolisthesis of C3 on C4 and C4 and C5. There is interbody fusion at C5-C6 and C6-C7. There is mild ly decreased disc height at C4-C5. The following disc levels are specifically discussed: C2-C3: There is no uncovertebral joint osteoarthritis. There is mild right and moderate left facet danny int osteoarthritis. There is no neural foraminal stenosis. There is no central canal stenosis. C3-C4: There is mild left uncovertebral joint osteoarthritis. There is severe bilateral facet joint o steoarthritis. There is mild left neural foraminal stenosis. There is mild central canal stenosis. C4-C5: There is mild bilateral uncovertebral joint osteoarthritis. There is severe bilateral facet danny int osteoarthritis. There is no neural foraminal stenosis. There is mild central canal stenosis. C5-C6: There is mild bilateral uncovertebral joint hypertrophy. There is ankylosis of the facet joint s with mild left hypertrophy. There is no neural foraminal stenosis. There is no central canal stenos is. C6-C7: There is ankylosis of the uncovertebral joints with mild hypertrophy. There is ankylosis of t he facet joints with mild hypertrophy. There is no neural foraminal stenosis. There is no central can al stenosis. C7-T1: There is no uncovertebral joint osteoarthritis. There is severe bilateral facet joint osteoart hritis. There is mild bilateral neural foraminal stenosis. There is no central canal stenosis. IMPRESSION: 1. No fracture. 2. Mild cervical spondylosis. 3. Anterior and posterior fusion from C5 to C7. Reviewed, dictated and finalized at location A.
--- NOTE | ~2021-10-24 | XR_ITS ---
EXAMINATION: XR shoulder LT min 2V DATE: 10/24/2021 19:24 INDICATION: Left shoulder pain. TECHNIQUE: 3 views of left shoulder were obtained. COMPARISON: Left shoulder radiographs 03/04/2021 FINDINGS: Bone alignment is normal. No fracture. There is mild osteoarthritis of acromioclavicular danny int. Glenohumeral joint is not well profiled. There are surgical clips in left axilla. IMPRESSION: 1. No fracture. Reviewed, dictated and finalized at location A. IMPRESSION: 1. No fracture.
[2021-10-24 15:51] VITALS: BP 150/67; PULSE 67; RESP 18; TEMP 36.8; O2SAT 99
--- NOTE | 2021-10-24 15:51 | PC.NURSE ---
patient has C-collar in place at time of arrival with EMS
[2021-10-24 18:28] VITALS: BP 197/89; PULSE 59; RESP 20; TEMP 37.1; O2SAT 97
--- NOTE | 2021-10-24 19:21 | ED.FALL ---
HPI - Fall General Chief Complaint: Fall Stated Complaint: nontramatic neck pain Time Seen by Provider: 10/24/21 18:52 History of Present Illness HPI Narrative: Patient is a 65-year-old female here for evaluation of neck and left shoulder pain for the past 12 hours after a fall yesterday. She notes that she accidentally slipped on an object and fell, landing on her left side. Patient states that she does have a history of chronic neck pain due to stenosis, however, after her fall yesterday the pain has increased, and she is having trouble moving her neck. She also notes left shoulder pain, worse with range of motion. Denies any numbness or tingling in her extremities, headaches, fever, weight loss, changes to her vision. she has not taken any medication for pain. She has seen a specialist at [facility] for her chronic neck pain, was told that she was not a surgical candidate due to her comorbidities. Related Data Home Medications Medication Instructions Recorded Confirmed nortriptyline 10 mg capsule 10 mg PO DAILY 02/25/19 09/24/21 benztropine 0.5 mg tablet 0.5 mg PO DAILY 02/18/21 09/24/21 cholecalciferol (vitamin D3) 25 25 mcg PO DAILY 02/18/21 09/24/21 mcg (1,000 unit) capsule aspirin 81 mg tablet,delayed 81 mg PO DAILY 05/02/21 09/24/21 release omeprazole magnesium 20 mg 20 mg PO BID 09/19/21 09/24/21 tablet,delayed release (Prilosec OTC) amlodipine 10 mg tablet mg 10/24/21 amlodipine 10 mg tablet mg 10/24/21 Allergies Allergy/AdvReac Type Severity Reaction Status Date / Time adhesive tape Allergy Mild rash Verified 10/24/21 18:33 tetanus immune globulin Allergy Mild HIVES Verified 10/24/21 18:33 cyclobenzaprine Allergy Unknown TINGLING Verified 10/24/21 18:33 SENSATION IN EXTREMITIES tetanus and diphtheria Allergy Unknown Swelling Verified 10/24/21 18:33 toxoids Tetanus Vaccines and Toxoid Allergy Unknown rash Verified 10/24/21 18:33 FLUOXETINE HCL Allergy Unknown RASH, Uncoded 10/24/21 15:56 SWELLING Review of Systems Review of Systems: Gen: Denies fevers or chills Eyes: Denies eye pain or visual change ENT: Denies congestion Respiratory: Denies shortness of breath or cough CV: Denies chest pain or palpitations GI: Denies abdominal pain nausea, emesis or diarrhea : denies burning, urgency, frequency or hematuria Musculoskeletal: Reports neck pain and shoulder pain. Neuro: Denies numbness, tingling, weakness or focal weakness Skin: Denies rash Except as documented, all other systems reviewed and negative [facility] Past Medical History Medical History Abnormal CT scan Bipolar disorder, unspecified Blockage of coronary artery of heart Chronic kidney disease, stage 3 (moderate) Chronic obstructive pulmonary disease, unspecified Constipation Essential (primary) hypertension Inflammatory arthritis Liver mass Marijuana use Nausea & vomiting BERTA (obstructive sleep apnea) Screening for colon cancer Screening for osteoporosis Surgical History Surgical History History of breast surgery History of cholecystectomy History of hernia surgery History of hysterectomy History of liver biopsy Status post mastectomy Family History Family History Sibling Family history of malignant neoplasm Family history of diabetes mellitus in first degree relative Family history of lupus erythematosus Family history of malignant neoplasm of brain Family history of malignant neoplasm of breast Mother Family history of chronic obstructive pulmonary disease, Onset Age: 76 Patient's mother is Family history of emphysema Family history of malignant neoplasm of breast Father Family history of malignant neoplasm of esophagus, Onset Age: 54 Patient's father is Other Fa
--- NOTE | 2021-10-24 19:39 | PC.NURSE ---
Pt states she cannot take tylenol or ibuprofen due to liver and stomach issues.
== END 2021-10-24 20:35 | disposition home or self-care (01) ==
PROVIDERS: Emergency Provider Emergency Medicine; PCP Internal Medicine
DX: M47.812 Spondylosis without myelopathy or radiculopathy, cervical region (principal); M43.22 Fusion of spine, cervical region; G89.29 Other chronic pain; N18.30 Chronic kidney disease, stage 3 unspecified; I12.9 Hypertensive chronic kidney disease with stage 1 through stage 4 chronic kidney disease, or unspecified chronic kidney disease; J44.9 Chronic obstructive pulmonary disease, unspecified; G47.33 Obstructive sleep apnea (adult) (pediatric); Z90.10 Acquired absence of unspecified breast and nipple; F17.210 Nicotine dependence, cigarettes, uncomplicated; W18.09XA Striking against other object with subsequent fall, initial encounter
CPT/HCPCS: 72125; 73030; 99284

== ENCOUNTER 2021-11-11 14:15 | Outpatient (RCR) | payer OTHER, SELFPAY ==
--- NOTE | 2021-10-21 15:46 | PTOPEVAL ---
Thank you for referring Eduarda Wall to [facility].? She is scheduled to be seen for therapy? 2 x/week for 4 weeks. Please review, sign, date and return this plan of care CHUCKIE. I agree with and certify that the following plan of care is medically necessary. Referring Physician Date Attending Provider: Omar Ewing MD Past Medical History Source of Past Medical History Recalled from Previous Visit, Confirmed with Patient/Family Neurological History Hx Parkinson's Disease Yes Cardiovascular History Hx Coronary Artery Disease Yes: meds Hx Hypercholesterolemia Yes: meds Hx Hypertension Yes: meds Respiratory History Hx Asthma Yes Hx Chronic Obstructive Pulmonary Disease Yes (COPD) Hx Pneumonia Yes Hx Sleep Apnea Yes: CPAP for sleeping Gastrointestinal History Hx Gastrointestinal Bleed Yes Hx Polyps Yes Hx Ulcer Yes Genitourinary History Hx Renal Disease Yes: ckd stage 3 Musculoskeletal History Hx Arthritis Yes: severe arthritis in neck and shoulders Hx Back Pain Yes Hx Fractures Yes: ribs Hx Other Musculoskeletal Disorders Yes: L rotator cuff tear Hematological History Hx Hematological Disorders No Significant History Endocrine History Hx Thyroidectomy Yes HEENT History Hx Cataracts Yes: surgery B eyes, reports blurry vision, several years since eye exam Hx Meniere's Syndrome Yes: diagnosis in ~2007 Hx Ear Surgery Yes: L cochlear implant ~2007 Integumentary History Hx Skin Disorders No Significant History Psychosocial History Hx Anxiety Yes Hx Bipolar Disorder Yes Hx Depression Yes Other History Hx Cancer Yes: L breast cancer, B mastectomy Hx Radiation Therapy Yes: L breast Evaluation Information Diagnosis cervical radiculopathy and vestibular therapy Onset May 2021 Additional Evaluation Detail pt has 2 orders from 2 different drs; she reports neck is causing her more pain and wants to start with neck treatment; Subjective Information to have injections in neck, Query Text:As Reported By Patient/ not yet scheduled; have had Family pain in her neck for about past year, but worse in past 6 adam
--- NOTE | 2021-11-07 14:51 | PCPTNOTE ---
On 11/07/21, the student, Rodney Peralta, provided care and completed [facility] documentation on this patient. I have reviewed the student's documentation and agree with the findings.
--- NOTE | 2021-11-19 12:41 | PCPTNOTE ---
pt called and canceled today's reeval due to illness.
--- NOTE | 2021-12-04 14:59 | PCPTNOTE ---
PHYSICAL THERAPY DISCHARGE 12-04-21 Attending Provider: Omar Ewing MD Patient:Eduarda Wall Date of :1955 Mrs. Wall has not returned for any further treatments since 11/11/2021, therefore she will be discharged at this time. She has received 6 PT treatments for cervical pain, from October 21 to November 09; then stopped attending. The goals were not addressed. Thank you for referring this patient to [facility]. Please review, sign, date and return this discharge summary CHUCKIE. I have been updated about the patient's current status and I agree with discharge from the above service at this time. Referring Physician Date
== END 2021-12-05 08:46 | disposition home or self-care (01) ==
LOC: ANHPT 14:15
PROVIDERS: PCP Internal Medicine
DX: Z86.69 Personal history of other diseases of the nervous system and sense organs (principal)
CPT/HCPCS: 97014; 97110; 97112; 97161; 97530; G0283

== ENCOUNTER 2021-11-14 08:27 | Outpatient (CLI) | payer OTHER, SELFPAY ==
--- NOTE | 2021-12-15 15:26 | WPDSLEEPSTUD ---
Sleep Study Date of Study: 11/14/21 Ordering Provider: Cristian Rao APRN Interpreting Physician: Irena Haddad DO Sleep Study Type: Split Polysomnogram Height: 1.5 m Weight: 75.75 kg Body Mass Index: 33.7 Neck Circumference (inches): 15 [place]: 10 Reason for Sleep Study BERTA on CPAP. Difficulty tolerating CPAP for past 3 months. Sleep History The patient is a 66-year-old female with bipolar disorder, anxiety, coronary artery disease, Stage 3 CKD, COPD, constipation, hypertension, inflammatory arthritis, Parkinson's disease, tobacco use and BERTA that had a sleep study ordered by the pulmonary office. the patient frequently awakens from sleep short of breath. She frequently awakens at night with heartburn, belching or cough. She occasionally snores loud enough that others complain. She rarely has trouble sleeping when she has a cold. She frequently wakes up gasping for air throughout the night. She frequently has breathing problems at night observed by herself or others. He rarely sweats excessively at night. She frequently has heart palpitations or irregular heartbeats during the night. She frequently falls asleep during the day but never while driving. She occasionally experiences loss of muscle tone when extremely emotional. She denies having trouble at school or work due to sleepiness. She occasionally feels unable to move when waking up or falling asleep. She rarely experiences vivid dreamlike scenes upon awakening or falling asleep. She denies feeling afraid of going to sleep. She denies having nightmares. She rarely remembers her dreams. She occasionally has thoughts racing through her mind. She frequently feels sad, depressed and anxious. She frequently has muscular tension. She constantly notices parts of her body jerk. She frequently has crawling and aching feelings in her legs and frequently has leg pain during the night. She denies grinding her teeth during sleep but occasionally awakens with a morning jaw pain. She is constantly bothered by pain during the day and constantly awakened by pain during the night. She frequently wakes up feeling stiff in the morning. She frequently wakes up with sore or achy muscles. She constantly wakes up with pain in the neck, spine and other joints. She goes to bed between 10-11 p.m. on both weekdays and weekends. It takes her 1 hour to fall asleep. She wakes up 5 times throughout the night to urinate. It takes her 30 minutes to fall back asleep. She wakes up at 9:00 a.m. on both weekdays and weekends. She typically gets 8 hours of sleep per night. She will stay in bed for 1 hour after waking up in the morning. She currently lives with her ex-. He does not consume any caffeinated beverages within 2 hours of bedtime. She does not engage in physical exercise before bedtime. She will watch television before falling asleep. She will take naps in the afternoon or the evening but they are not refreshing. She currently smokes 1 pack of cigarettes per day. She denies consuming any caffeinated beverages. She denies alcohol use. She currently uses marijuana daily. [facility] Past Medical History Medical History Abnormal CT scan Bilateral hand pain Bipolar disorder, unspecified Blockage of coronary artery of heart Chronic kidney disease, stage 3 (moderate) Chronic obstructive pulmonary disease, unspecified Constipation Essential (primary) hypertension Inflammatory arthritis Liver mass Marijuana use Nausea & vomiting BERTA (obstructive sleep apnea) Screening for colon cancer Screening for osteoporosis Surgical History Surgical History History of breast surgery History of cholecystectomy History of hernia surgery History of hysterectomy History of liver biopsy Status post mastectomy Family History Family History (Reviewed 12/15/21 @ 15:35 by Shelia
[2021-12-15 15:52] VITALS: BMI 33.7
== END 2021-11-15 09:27 | disposition home or self-care (01) ==
LOC: ANHCSM 08:27
PROVIDERS: PCP Internal Medicine; Visit Provider Nurse Practitioner Family
DX: G47.33 Obstructive sleep apnea (adult) (pediatric) (principal)
CPT/HCPCS: 95811

== ENCOUNTER 2021-12-26 14:53 | Outpatient (CLI) | payer MEDICARE, MEDICAID, SELFPAY ==
[2021-12-26 15:53] LABS: Alanine Aminotransferase 20 U/L (6-35); Albumin Level 3.7 g/dL (3.5-5.1); Alkaline Phosphatase 126 U/L (38-126); Anion Gap 8 mmol/L (8-16); Aspartate Amino Transferase 30 U/L (14-36); Bilirubin,Total 0.4 mg/dL (0.2-1.3); Blood Urea Nitrogen 22 mg/dL (7-17); Calcium 8.6 mg/dL (8.4-10.2); Carbon Dioxide 28 mmol/L (22-30); Chloride 104 mmol/L (98-107); Cholesterol 143 mg/dL (0-200); Estimated Glomerular Filt Rate 35; Glucose 112 mg/dL (65-110); HDL Direct 28 mg/dL; Potassium 3.9 mmol/L (3.4-5.0); Sodium 140 mmol/L (137-145); Triglycerides 155 mg/dL (<150)
[2021-12-26 16:04] LABS: LDL Cholesterol Direct 70 mg/dL
== END 2021-12-26 14:54 | disposition home or self-care (01) ==
LOC: ANHLAB 14:55
PROVIDERS: Nurse Practitioner; PCP Internal Medicine; Visit Provider Nurse Practitioner Family
DX: G47.61 Periodic limb movement disorder (principal); M25.50 Pain in unspecified joint; Z79.899 Other long term (current) drug therapy; E78.5 Hyperlipidemia, unspecified
CPT/HCPCS: 36415; 80053; 80061; 82728; 84443

== ENCOUNTER 2022-02-06 07:22 | Outpatient (RCR) | payer MEDICARE, MEDICAID, SELFPAY | END 2022-04-22 10:57 | disposition home or self-care (01) | LOC: ANHPT 07:22 | PROVIDERS: PCP Internal Medicine | DX: R26.89 Other abnormalities of gait and mobility (principal) | CPT/HCPCS: 99199 ==

== ENCOUNTER 2022-03-03 11:57 | Outpatient (CLI) | payer MEDICARE, MEDICAID, SELFPAY | END 2022-03-03 11:58 | disposition home or self-care (01) | LOC: ANHLAB 12:01 | PROVIDERS: PCP Internal Medicine; Visit Provider Physician Assistant | DX: D64.9 Anemia, unspecified (principal) | CPT/HCPCS: 36415; 82728 ==

== ENCOUNTER 2022-04-14 15:20 | Outpatient (CLI) | payer MEDICARE, MEDICAID, SELFPAY ==
[2022-04-14 16:15] LABS: Add Urine Microscopic? YES; Appearance Urine Clear (Clear); Bilirubin Urine Negative (Negative); Blood Urine Negative (Negative); Color Urine Yellow (Yellow); Glucose Urine UA Negative (Negative); Ketones Urine Negative (Negative); Leukocyte Esterase Ur Negative LEU/UL (Negative); Nitrate Urine Negative (Negative); Protein Urine Trace mg/dL (Negative); Urobilinogen Urine 0.2 mg/dL (<2.0)
[2022-04-14 16:26] LABS: Mucus Urine Rare /lpf; RBC Urine 0-2 /hpf (0-2); Squamous Epithelial Cell Urine Rare /hpf (Few); WBC Urine 0-3 /hpf
== END 2022-04-14 15:21 | disposition home or self-care (01) ==
PROVIDERS: PCP Internal Medicine; Visit Provider Nurse Practitioner
DX: R39.9 Unspecified symptoms and signs involving the genitourinary system (principal)
CPT/HCPCS: 81001

== ENCOUNTER 2022-04-17 13:53 | Outpatient (RCR) | payer MEDICAID, SELFPAY | END 2022-07-14 23:59 | disposition home or self-care (01) | LOC: ANHLAB 13:53 | PROVIDERS: PCP Internal Medicine; Visit Provider Internal Medicine Critical Care Medicine | DX: J44.9 Chronic obstructive pulmonary disease, unspecified (principal) | CPT/HCPCS: 87015; 87070; 87077; 87102; 87106; 87116; 87205; 87206 ==

== ENCOUNTER 2022-04-29 14:51 | Outpatient (CLI) | payer MEDICARE, MEDICAID, SELFPAY ==
--- NOTE | 2022-04-29 15:06 | ECHO_ITS ---
Patient Info Name: Eduarda Wall Age: 66 years : 1955 Gender: Female Ht: 61 in Wt: 163 lbs BSA: 1.81 m2 HR: 51 bpm BP: 122 / 71 mmHg Technical Quality: Good Exam Date: 04/29/2022 3:20 PM Exam Location: [facility] Patient Status: Outpatient Admit Date: 04/29/2022 Staff Ordering Physician: Varghese Rocha DO Digital Marketing Assistant: Dago Morales RDCS Attending Provider: Varghese Rocha DO Referring Physician: Aj PARKS; Exam Type: CA echo doppler color flow Study Info Indications R06.00 - Dyspnea, unspecified Complete two-dimensional, color flow and Doppler transthoracic echocardiogram is performed. Summary 1. Complete two-dimensional, color flow and Doppler transthoracic echocardiogram is performed. 2. Left ventricular chamber dimension is normal. 3. Left ventricular systolic function is normal, estimated at 60-65%. 4. There is mildly increased left ventricular wall thickness. 5. The left ventricular diastolic function is grade I diastolic dysfunction. 6. E/e' 12 is mildly elevated. 7. There is mild aortic valve sclerosis. 8. There is mild mitral valve regurgitation. Left Ventricle E/e' 12 is mildly elevated. Left ventricular chamber dimension is normal. Left ventricular systolic function is normal, estimated at 60-65%. There is mildly increased left ventricular wall thickness. The left ventricular diastolic function is grade I diastolic dysfunction. Right Ventricle Right ventricular systolic function is normal and with normal TAPSE 3.0 cm. Right ventricular chamber dimension is normal. Left Atria Left atrial chamber dimension is normal. Right Atria Right atrial chamber dimension is normal. Aortic Valve The aortic valve is trileaflet. There is mild aortic valve sclerosis. There is no aortic valve stenosis. There is no aortic valve regurgitation. Pulmonic Valve There is no pulmonic regurgitation. Mitral Valve There is no mitral valve stenosis. There is mild mitral valve regurgitation. Tricuspid Valve There is no tricuspid valve regurgitation. Pericardium/Pleural There is no pericardial effusion. Inferior Vena Cava Normal inferior vena cava with >50% collapse upon inspiration consistent with normal right atrial pressure, 5 mmHg. Aorta The aortic root size at the sinus of Valsalva is normal. Left Ventricular Outflow Tract Name Value Normal LVOT 2D LVOT Diameter 2.0 cm LVOT Doppler LVOT Peak Gradient 5 mmHg LVOT Mean Gradient 3 mmHg LVOT VTI 31 cm LVOT VTI/AV VTI Ratio 0.6 LVOT Stroke Volume 96 ml LVOT CO 5.0 l/min LVOT CI 2.8 l/min/m2 Mitral Valve Name Value Normal MV Doppler MV Peak Gra
== END 2022-04-29 14:52 | disposition home or self-care (01) ==
LOC: ANHCARD 14:52
PROVIDERS: PCP Internal Medicine; Visit Provider Internal Medicine Cardiovascular Disease
DX: R06.00 Dyspnea, unspecified (principal); I35.8 Other nonrheumatic aortic valve disorders; I34.0 Nonrheumatic mitral (valve) insufficiency
CPT/HCPCS: 93306

== ENCOUNTER 2022-05-15 11:14 | Outpatient (CLI) | payer MEDICARE, MEDICAID, SELFPAY ==
[2022-05-15 12:13] LABS: Alanine Aminotransferase 18 U/L (6-35); Albumin Level 3.5 g/dL (3.5-5.1); Alkaline Phosphatase 122 U/L (38-126); Anion Gap 3 mmol/L (8-16); Aspartate Amino Transferase 27 U/L (14-36); Bilirubin,Total 0.4 mg/dL (0.2-1.3); Blood Urea Nitrogen 27 mg/dL (7-17); Calcium 7.6 mg/dL (8.4-10.2); Carbon Dioxide 30 mmol/L (22-30); Chloride 109 mmol/L (98-107); Estimated Glomerular Filt Rate 45; Glucose 88 mg/dL (65-110); Phosphorus 4.5 mg/dL (2.5-4.5); Potassium 4.3 mmol/L (3.4-5.0); Sodium 142 mmol/L (137-145)
[2022-05-15 12:27] LABS: SARS-CoV-2 RNA PCR Negative
[2022-05-15 12:47] LABS: Free T4 Free Thyroxine 1.03 ng/mL (0.78-2.19)
[2022-05-19 16:12] LABS: Vitamin D 1,25 (OH)2 Total 39 pg/mL (18-72); Vitamin D2 1,25 (OH)2 <8 pg/mL; Vitamin D3 1,25 (OH)2 39 pg/mL
== END 2022-05-15 11:15 | disposition home or self-care (01) ==
LOC: ANHLAB 11:16
PROVIDERS: PCP Internal Medicine; Visit Provider Internal Medicine
DX: E83.52 Hypercalcemia (principal); R94.6 Abnormal results of thyroid function studies; E78.5 Hyperlipidemia, unspecified; I10 Essential (primary) hypertension; Z20.822 Contact with and (suspected) exposure to COVID-19; N18.30 Chronic kidney disease, stage 3 unspecified
CPT/HCPCS: 36415; 80053; 82652; 84100; 84439; 84443; U0003; U0005

== ENCOUNTER 2022-07-23 13:22 | Outpatient (CLI) | payer MEDICARE, MEDICAID, SELFPAY ==
[2022-07-26 08:40] LABS: Amphetamines NEGATIVE ng/mL (<500); Barbiturates NEGATIVE ng/mL (<300); Benzodiazepines NEGATIVE ng/mL (<100); Cocaine Metabolite NEGATIVE ng/mL (<150); Marijuana Metabolite POSITIVE ng/mL (<20); Methadone Metabolite NEGATIVE ng/mL (<100); Oxidant NEGATIVE mcg/mL (<200); pH 5.4 (4.5-9.0)
== END 2022-07-23 13:23 | disposition home or self-care (01) ==
PROVIDERS: PCP Family Medicine; Visit Provider Internal Medicine
DX: Z51.81 Encounter for therapeutic drug level monitoring (principal); Z79.899 Other long term (current) drug therapy
CPT/HCPCS: 80307

== ENCOUNTER 2022-10-24 11:19 | Outpatient (CLI) | payer MEDICARE, MEDICAID, SELFPAY ==
[2022-10-24 11:36] LABS: Hematocrit 40.1 % (37.0-47.0); Hemoglobin 12.5 g/dL (12.0-15.0); Mean Corpuscular HGB Conc 31.2 g/dl (32-36); Mean Corpuscular Hemoglobin 29.1 pg (26-34); Mean Corpuscular Volume 93.3 fl (80-100); Mean Platelet Volume 11.1 fl (7.4-10.4); Platelet Count Result 215 k/mm3 (150-375); Red Cell Distribution Width 15.6 % (11.5-14.5); White Blood Count 9.8 K/mm3 (4.5-10.0)
[2022-10-24 11:49] LABS: Alanine Aminotransferase 16 U/L (6-35); Albumin Level 3.4 g/dL (3.5-5.1); Alkaline Phosphatase 92 U/L (38-126); Anion Gap 6 mmol/L (8-16); Aspartate Amino Transferase 25 U/L (14-36); Bilirubin,Total 0.3 mg/dL (0.2-1.3); Blood Urea Nitrogen 36 mg/dL (7-17); Calcium 8.4 mg/dL (8.4-10.2); Carbon Dioxide 31 mmol/L (22-30); Chloride 104 mmol/L (98-107); Cholesterol 115 mg/dL (0-200); Estimated Glomerular Filt Rate 38; Glucose 98 mg/dL (65-110); HDL Direct 23 mg/dL; Potassium 4.4 mmol/L (3.4-5.0); Sodium 141 mmol/L (137-145); Triglycerides 137 mg/dL (<150)
[2022-10-24 12:00] LABS: LDL Cholesterol Direct 51 mg/dL
== END 2022-10-24 11:20 | disposition home or self-care (01) ==
PROVIDERS: PCP Family Medicine; Visit Provider Nurse Practitioner Family
DX: R63.4 Abnormal weight loss (principal); E78.5 Hyperlipidemia, unspecified; Z79.899 Other long term (current) drug therapy; R53.83 Other fatigue
CPT/HCPCS: 36415; 80053; 80061; 83036; 84443; 85027

== ENCOUNTER 2022-11-14 18:13 | Emergency (ER) | payer MEDICARE, MEDICAID, SELFPAY ==
[2022-11-14 18:18] VITALS: BP 152/69; PULSE 53; RESP 17; TEMP 36.7; O2SAT 99
--- NOTE | 2022-11-14 20:33 | ED.SKABFB ---
HPI - Skin/Abscess/Foreign Bdy General Chief complaint: Skin/Abscess/Foreign Body Stated complaint: Breast problem Time Seen by Provider: 11/14/22 19:22 Source: patient Mode of arrival: ambulatory Limitations: no limitations History of Present Illness HPI narrative: This is a 67 year old female that presents to the ER for breast implant problems. Reports over several months the implant has started to be painful and has lost its shape. Reports she has an appointment to see a breast surgeon in 4 days. Denies fever or redness. Related Data Home Medications Medication Instructions Recorded Confirmed benztropine 0.5 mg tablet 0.5 mg PO DAILY 02/18/21 09/24/22 aspirin 81 mg tablet,delayed 81 mg PO DAILY 05/02/21 09/24/22 release deutetrabenazine 12 mg tablet 24 mg PO BID 08/28/22 09/24/22 (Austedo) levalbuterol HCl 1.25 mg/3 mL 1.25 mg inhalation Q4H 08/28/22 09/24/22 solution for nebulization loratadine 10 mg tablet 10 mg PO DAILY 08/28/22 09/24/22 nitroglycerin 0.4 mg sublingual 0.4 mg sublingual Q5M PRN 08/28/22 09/24/22 tablet polyethylene glycol 3350 17 17 g PO DAILY 08/28/22 09/24/22 gram/dose oral powder sertraline 100 mg tablet 100 mg PO DAILY 08/28/22 09/24/22 ubidecarenone-omega 3-vit E 25 1 cap PO DAILY 08/28/22 09/24/22 mg-150 (90-60) mg-200 unit capsule (Co S-40-Zhiroks E-Fish Oil) valsartan 160 mg tablet 320 mg PO DAILY 08/28/22 09/24/22 isosorbide mononitrate 60 mg 120 mg PO DAILY 10/29/22 tablet,extended release 24 hr Allergies Allergy/AdvReac Type Severity Reaction Status Date / Time adhesive tape Allergy Mild rash Verified 10/29/22 14:52 tetanus immune globulin Allergy Mild HIVES Verified 10/29/22 14:52 cyclobenzaprine Allergy Unknown TINGLING Verified 10/29/22 14:52 SENSATION IN EXTREMITIES tetanus and diphtheria Allergy Unknown Swelling Verified 10/29/22 14:52 toxoids Tetanus Vaccines and Toxoid Allergy Unknown rash Verified 10/29/22 14:52 FLUOXETINE HCL Allergy Unknown RASH, Uncoded 10/29/22 14:52 SWELLING Review of Systems Review of Systems: CONSTITUTIONAL: Denies fever BREAST: Reports pain All systems reviewed & are unremarkable except as noted in HPI and below PMFSH Past Medical History Medical History Abnormal CT scan Adenomatous colon polyp Bilateral hand pain Bipolar disorder, unspecified Blockage of coronary artery of heart Chronic kidney disease, stage 3 (moderate) Chronic obstructive pulmonary disease, unspecified Constipation Degenerative cervical disc Essential (primary) hypertension Gastritis Gastroparesis HX: breast cancer Inflammatory arthritis Liver cyst Liver mass Lumbar degenerative disc disease Marijuana use Menieres disease Nausea & vomiting BERTA (obstructive sleep apnea) Parkinson disease Screening for colon cancer Screening for osteoporosis Seronegative rheumatoid arthritis of both hands Tardive dyskinesia Surgical History Surgical History History of breast surgery History of cholecystectomy History of hernia surgery History of hysterectomy History of liver biopsy Status post mastectomy Family History Family History Sibling Family history of malignant neoplasm Family history of diabetes mellitus in first degree relative Family history of lupus erythematosus Family history of malignant neoplasm of brain Family history of malignant neoplasm of breast Mother Family history of chronic obstructive pulmonary disease, Onset Age: 76 Patient's mother is Family history of emphysema Family history of malignant neoplasm of breast Father Family history of malignant neoplasm of esophagus, Onset Age: 54 Patient's father is Other Family history of cardiovascular disease Family history of malignant neoplasm of mal
== END 2022-11-14 20:54 | disposition home or self-care (01) ==
PROVIDERS: Emergency Provider Physician Assistant; PCP Nurse Practitioner Family
DX: T85.848A Pain due to other internal prosthetic devices, implants and grafts, initial encounter (principal); G20 Parkinson's disease; J44.9 Chronic obstructive pulmonary disease, unspecified; I12.9 Hypertensive chronic kidney disease with stage 1 through stage 4 chronic kidney disease, or unspecified chronic kidney disease; N18.30 Chronic kidney disease, stage 3 unspecified; F17.210 Nicotine dependence, cigarettes, uncomplicated
CPT/HCPCS: 99281

== ENCOUNTER 2022-12-15 17:13 | Emergency (ER) | payer MEDICARE, MEDICAID, SELFPAY ==
[2022-12-15] VITALS (7 sets, daily range): BP systolic 169–180; BP diastolic 77–85; PULSE 49–59; RESP 13–20; TEMP 36.4; O2SAT 93–100
--- NOTE | ~2022-12-15 | XR_ITS ---
EXAMINATION: XR chest 1V portable Exam Date/Time: 12/15/2022 19:45 CDT HISTORY: cough X 1 WEEK Comparison: 08/12/2021. RESULT: Lines, tubes, and devices: Bilateral breast implants. Left axillary clips. Lungs and pleura: Hazy opacities in the left mid/lower lung. Senescent change. Cardiomediastinal silhouette: Stable. Other: No acute osseous or upper abdominal finding. IMPRESSION: Hazy opacities in the left lower lung may represent atelectasis, consolidation, or summation artifact from overlying soft tissue and breast implant. Reviewed, dictated and finalized at location K.
--- NOTE | 2022-12-15 20:21 | ED.GENADULT ---
HPI - General Adult General Chief complaint: Unspecified Stated complaint: COVID positive Time Seen by Provider: 12/15/22 19:16 History of Present Illness HPI narrative: Patient presents to the emergency department with flulike symptoms. She took a home COVID test and it was positive. She has had headache body aches cough and mild shortness of breath. She has a history of COPD and smokes. Took home Vicodin for discomfort but has not taken anything else for the fever. Patient is very pleasant and in no distress exam grossly benign Related Data Home Medications Medication Instructions Recorded Confirmed benztropine 0.5 mg tablet 0.5 mg PO DAILY 02/18/21 12/15/22 aspirin 81 mg tablet,delayed 81 mg PO DAILY 05/02/21 12/15/22 release deutetrabenazine 12 mg tablet 24 mg PO BID 08/28/22 12/15/22 (Austedo) levalbuterol HCl 1.25 mg/3 mL 1.25 mg inhalation Q4H 08/28/22 12/15/22 solution for nebulization loratadine 10 mg tablet 10 mg PO DAILY 08/28/22 12/15/22 nitroglycerin 0.4 mg sublingual 0.4 mg sublingual Q5M PRN 08/28/22 12/15/22 tablet polyethylene glycol 3350 17 17 g PO DAILY 08/28/22 12/15/22 gram/dose oral powder sertraline 100 mg tablet 100 mg PO DAILY 08/28/22 12/15/22 ubidecarenone-omega 3-vit E 25 1 cap PO DAILY 08/28/22 12/15/22 mg-150 (90-60) mg-200 unit capsule (Co P-51-Scvqcsg E-Fish Oil) valsartan 160 mg tablet 320 mg PO DAILY 08/28/22 12/15/22 isosorbide mononitrate 60 mg 120 mg PO DAILY 10/29/22 12/15/22 tablet,extended release 24 hr Allergies Allergy/AdvReac Type Severity Reaction Status Date / Time adhesive tape Allergy Mild rash Verified 12/15/22 19:41 tetanus immune globulin Allergy Mild HIVES Verified 12/15/22 19:41 cyclobenzaprine Allergy Unknown TINGLING Verified 12/15/22 19:41 SENSATION IN EXTREMITIES tetanus and diphtheria Allergy Unknown Swelling Verified 12/15/22 19:41 toxoids Tetanus Vaccines and Toxoid Allergy Unknown rash Verified 12/15/22 19:41 FLUOXETINE HCL Allergy Unknown RASH, Uncoded 12/15/22 19:41 SWELLING Review of Systems Review of Systems: ROS negative except for what is documented in the [facility] Past Medical History Medical History Abnormal CT scan Adenomatous colon polyp Bilateral hand pain Bipolar disorder, unspecified Blockage of coronary artery of heart Chronic kidney disease, stage 3 (moderate) Chronic obstructive pulmonary disease, unspecified Constipation Degenerative cervical disc Essential (primary) hypertension Gastritis Gastroparesis HX: breast cancer Inflammatory arthritis Liver cyst Liver mass Lumbar degenerative disc disease Marijuana use Menieres disease Nausea & vomiting BERTA (obstructive sleep apnea) Parkinson disease Screening for colon cancer Screening for osteoporosis Seronegative rheumatoid arthritis of both hands Tardive dyskinesia Surgical History Surgical History History of breast surgery History of cholecystectomy History of hernia surgery History of hysterectomy History of liver biopsy Status post mastectomy Family History Family History Sibling Family history of malignant neoplasm Family history of diabetes mellitus in first degree relative Family history of lupus erythematosus Family history of malignant neoplasm of brain Family history of malignant neoplasm of breast Mother Family history of chronic obstructive pulmonary disease, Onset Age: 76 Patient's mother is Family history of emphysema Family history of malignant neoplasm of breast Father Family history of malignant neoplasm of esophagus, Onset Age: 54 Patient's father is Other Family history of cardiovascular disease Family history of malignant neoplasm of male breast Family history of obesity Social History Soci
[2022-12-15] MEDS: ALBUTEROL SULFATE NEB 2.5 MG/3 ML INH INHALATION (20:47)
[2022-12-15] MEDS: IBUPROFEN 600 MG TABLET PO (21:00)
[2022-12-15] MEDS: BENZONATATE 100 MG CAPSULE PO (21:00)
[2022-12-15] MEDS: hydrALAZINE 10 MG TABLET PO (22:11)
== END 2022-12-15 22:15 | disposition home or self-care (01) ==
PROVIDERS: Emergency Provider Emergency Medicine; PCP Family Medicine
DX: U07.1 COVID-19 (principal); J44.9 Chronic obstructive pulmonary disease, unspecified; I12.9 Hypertensive chronic kidney disease with stage 1 through stage 4 chronic kidney disease, or unspecified chronic kidney disease; N18.30 Chronic kidney disease, stage 3 unspecified; G20 Parkinson's disease; K31.84 Gastroparesis; G47.33 Obstructive sleep apnea (adult) (pediatric); M19.90 Unspecified osteoarthritis, unspecified site; M06.042 Rheumatoid arthritis without rheumatoid factor, left hand; M06.041 Rheumatoid arthritis without rheumatoid factor, right hand; G24.01 Drug induced subacute dyskinesia; F31.9 Bipolar disorder, unspecified; Z85.3 Personal history of malignant neoplasm of breast; Z86.010 Personal history of colon polyps; Z90.49 Acquired absence of other specified parts of digestive tract; Z90.710 Acquired absence of both cervix and uterus; Z90.10 Acquired absence of unspecified breast and nipple; Z79.82 Long term (current) use of aspirin; F17.210 Nicotine dependence, cigarettes, uncomplicated
CPT/HCPCS: 71045; 94640; 99283; A9270

== ENCOUNTER 2023-01-22 12:42 | Outpatient (CLI) | payer MEDICARE, MEDICAID, SELFPAY ==
[2023-01-22 14:39] LABS: Hematocrit 41.1 % (37.0-47.0); Hemoglobin 12.4 g/dL (12.0-15.0); Mean Corpuscular HGB Conc 30.2 g/dl (32-36); Mean Corpuscular Hemoglobin 28.9 pg (26-34); Mean Corpuscular Volume 95.8 fl (80-100); Mean Platelet Volume 12.2 fl (7.4-10.4); Platelet Count Result 192 k/mm3 (150-375); Red Blood Count 4.29 M/mm3 (4.2-5.4); Red Cell Distribution Width 16.1 % (11.5-14.5); White Blood Count 9.4 K/mm3 (4.5-10.0)
[2023-01-22 14:50] LABS: Cholesterol 130 mg/dL (0-200); HDL Direct 34 mg/dL; Triglycerides 92 mg/dL (<150)
[2023-01-22 15:01] LABS: LDL Cholesterol Direct 64 mg/dL
[2023-01-22 15:45] LABS: Iron 61 ug/dL (37-170)
[2023-01-22 16:34] LABS: Free T4 Free Thyroxine 0.96 ng/mL (0.78-2.19); Percent Iron Saturation 20 % (20-50)
[2023-01-22 17:02] LABS: Vitamin D 25 Hydroxy 52.4 ng/mL
[2023-01-22 17:54] LABS: Alanine Aminotransferase 12 U/L (6-35); Albumin Level 3.5 g/dL (3.5-5.1); Alkaline Phosphatase 96 U/L (38-126); Anion Gap 4 mmol/L (8-16); Aspartate Amino Transferase 23 U/L (14-36); Bilirubin,Total 0.5 mg/dL (0.2-1.3); Blood Urea Nitrogen 30 mg/dL (7-17); Calcium 8.2 mg/dL (8.4-10.2); Carbon Dioxide 30 mmol/L (22-30); Chloride 105 mmol/L (98-107); Estimated Glomerular Filt Rate 35; Glucose 85 mg/dL (65-110); Potassium 4.4 mmol/L (3.4-5.0); Sodium 139 mmol/L (137-145)
[2023-01-22 19:33] LABS: Folic Acid 8.1 ng/mL (2.76->20)
[2023-01-25 16:08] LABS: Kappa\\Lambda Light Chains 1.05 (0.26-1.65); Lambda Light Chain 61.6 mg/L (5.7-26.3)
[2023-01-26 16:16] LABS: Abnormal Protein Band 1 0.5 g/dL; Alpha 1 Globulin 0.4 g/dL (0.2-0.3); Alpha 2 Globulin 0.9 g/dL (0.5-0.9); Beta 1 Globulin 0.5 g/dL (0.4-0.6); Gamma Globulin 1.3 g/dL (0.8-1.7); Protein, Total 6.4 g/dL (6.1-8.1)
[2023-01-29 18:54] LABS: Cryoglobulin, QL Negative (Negative)
[2023-01-31 00:56] LABS: Creatinine, Random Urine 148 mg/dL (20-275); Total Protein/Creatinine Ratio 196 mg/g creat (24-184)
== END 2023-01-22 12:43 | disposition home or self-care (01) ==
PROVIDERS: PCP Family Medicine; Referring Provider Nurse Practitioner Family
DX: R53.83 Other fatigue (principal); D64.9 Anemia, unspecified; E78.49 Other hyperlipidemia; R63.4 Abnormal weight loss; E55.9 Vitamin D deficiency, unspecified; E78.5 Hyperlipidemia, unspecified
CPT/HCPCS: 36415; 80053; 80061; 82306; 82570; 82595; 82607; 82728; 82746; 83540; 83550; 83883; 84155; 84156; 84165; 84166; 84439; 84443; 85027; 86160; 86334; 86335

== ENCOUNTER 2023-02-20 11:56 | Outpatient (CLI) | payer MEDICARE, MEDICAID, SELFPAY ==
--- NOTE | ~2023-02-20 | CT_ITS ---
EXAMINATION: CT brain wo con DATE: 02/20/2023 12:13 INDICATION: Headache and dizziness. TECHNIQUE: Computed tomography (CT) of the head was performed without intravenous contrast. The mA wa s adjusted according to patient size. Iterative reconstruction technique was employed. The dose-lengt h product was 529.67 mGy-cm. COMPARISON: Head CT 08/10/2020 FINDINGS: There is no intracranial hemorrhage, acute infarction, or abnormal intracranial mass lesion . The ventricles are normal in size. There are likely changes of ocular lens replacement surgeries. T he paranasal sinuses are clear. There is a left-sided cochlear implant. IMPRESSION: 1. Normal brain. Reviewed, dictated and finalized at location A. TE HUNTER IMPRESSION: 1. Normal brain.
== END 2023-02-20 11:57 | disposition home or self-care (01) ==
PROVIDERS: PCP Family Medicine; Visit Provider Nurse Practitioner Family
DX: R51.9 Headache, unspecified (principal); R42 Dizziness and giddiness; H53.9 Unspecified visual disturbance
CPT/HCPCS: 70450

== ENCOUNTER 2023-04-29 12:30 | Outpatient (RCR) | payer MEDICARE, MEDICAID, SELFPAY ==
--- NOTE | 2023-04-07 16:37 | OPREHPOC ---
Outpatient Therapy Plan of Care This is a Multidisciplinary Plan of Care that may contain components documented by all disciplines (PT, OT, and ST.) PT Problem 1 PT Problem #1 Knowledge Deficit PT Goal 1 Goal Pt to be IND with issued HEP Target Visit 8 PT Problem 2 PT Problem #2 Pain PT Goal 1 Goal Pt to report pain no greater than 5/10 in the last week. Target Visit 8 PT Goal 2 Goal Pt to report 50% improvement in overall symptoms. Target Visit 8 PT Problem 3 PT Problem #3 Pain PT Goal 1 Goal Pt to stand for 30 mins without rest to be able to cook a meal. Target Visit 8 PT Problem 4 PT Problem #4 Impaired Range of Motion PT Goal 1 Goal Pt to improve cervical lateral flexion to 35 deg yoav without an increase in pain.
--- NOTE | 2023-04-07 16:38 | PTOPEVAL1 ---
Assessment and note entered by Landen Schmid, PT, DPT Evaluation Information Assessment Status Evaluation Diagnosis cervicalgia, yoav shoulder pain Onset chronic Subjective Information Pt states she was told she has severe arthritis in her neck and shoulders, she reports multiple other comorbidities. She reports pain for multiple years. She reports a constant pain with intermittent sharp pain that go down to her entire R hand. She reports every single activity she does increases her pain. She states she wakes up multiple times throughout the night d/t pain. Pt states she sleeps and spends most of her day in a recliner. Pt reports her pain as greater than a 10 /10 on a daily basis. She declines any prior neck surgeries. Pt does not work, she states her does all of the house work as she cannot d/t pain. Reported Pain Level Pain Score 8: Self Report Assessment PT Clinical Summary Eduarda presents to therapy today for her initial evaluation with multiple pain diagnosis. Today she reports neck and shoulder pain as her primary concern. Today she demonstrates decreased active cervical ROM limited by pain, her active shoulder ROM and passive cervical ROM is WNL but pt reports significant pain reports with these motions. Pt is limited in her ability to stand and perform functional tasks d/t her neck pain. Skilled therapy services are indicated to address the deficits noted above, to manage pain, and to improve functional mobility. Plan of Care Interventions Electrical Stimulation,Gait Training,Hot Pack/Cold Pack,Manual Therapy,Neuro Re-education,Patient/ Caregiver Educati,Therapeutic Activities, Therapeutic Exercise PT Services Indicated Yes Treatment Frequency and 2x/wk for 8 visits Duration These treatments will address the objective and functional deficits as defined above. The patient will be advanced safely and appropriately in order for the patient to progress towards his/her prior level of function. Additional exercises will be introduced and as well as a comprehensive home exercise program upon discharge, if needed, ?to ensure carryover of functional gains achieved in the clinic. This treatment plan has been reviewed and agreement upon by the patient.
--- NOTE | 2023-04-13 12:26 | PCPTNOTE ---
Patient cancelled secondary to illness.
--- NOTE | 2023-04-16 14:40 | PCPTNOTE ---
Patient unable to make appointment on 04/16/23 due to no transportation. Attempted to reschedule for 04/17/23 however was unable to find transportation this date.
--- NOTE | 2023-04-20 13:21 | PCPTNOTE ---
Patient cancelled secondary to could not get a ride.
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
--- NOTE | 2023-05-18 11:54 | PCPTNOTE ---
Patient called & cancelled scheduled appointment this date. Pt states she has a brain bleed and was told to put therapy on hold until further notice.
--- NOTE | 2023-06-17 11:50 | PTOPDC ---
Assessment and note entered by Landen Schmid, PT, DPT Evaluation Information Assessment Status Discharge - Pt Not Present Diagnosis cervicalgia, yoav shoulder pain Onset chronic Subjective Information Pt called and cancelled all of her remaining appointments on 05/18 and was placed on hold per her request. Called and LVM with pt to follow up on 06/07. Have not heard from pt since. Assessment PT Clinical Summary Eduarda completed 3 visits of skilled therapy from to 04/29/23 and has not returned since. D/t poor therapy attendance pt will be discharged at this time. If pt needs additional therapy at a later date she will need a new order.
== END 2023-06-17 13:10 | disposition home or self-care (01) ==
LOC: ANHGOSHPT 12:30
PROVIDERS: PCP Family Medicine; Visit Provider Anesthesiology Pain Medicine
DX: M54.17 Radiculopathy, lumbosacral region (principal); M54.2 Cervicalgia; M48.02 Spinal stenosis, cervical region; M47.893 Other spondylosis, cervicothoracic region; M54.9 Dorsalgia, unspecified; G89.29 Other chronic pain
CPT/HCPCS: 97014; 97110; 97140; 97161; 99199; G0283

== ENCOUNTER 2023-05-01 15:19 | Emergency (ER) | payer MEDICARE, MEDICAID, SELFPAY ==
--- NOTE | ~2023-05-01 | XR_ITS ---
EXAMINATION: XR shoulder RT min 2V DATE: 05/01/2023 16:19 INDICATION: Nontraumatic right shoulder pain TECHNIQUE: AP internally and externally rotated, AP oblique externally rotated and axillary views of the right shoulder were obtained. COMPARISON: None FINDINGS: Normal alignment. No fracture. Minimal osteoarthritis at the right shoulder with relatively preserve d glenohumeral and acromioclavicular joint spaces with tiny marginal osteophytes. Soft tissues are u nremarkable. Visualized portion of the right lung is clear. IMPRESSION: Minimal right acromioclavicular and glenohumeral osteoarthritis. Reviewed, dictated and finalized at location A. INE MAINTENANCE SERVICER
--- NOTE | ~2023-05-01 | CT_ITS ---
EXAMINATION: CT UE RT wo con DATE: 05/01/2023 17:54 INDICATION: Right upper extremity pain. Radial head fracture. TECHNIQUE: Computed tomography (CT) of the right upper extremity was performed without intravenous co ntrast. Automated exposure control and iterative reconstruction technique were employed. The dose-zeke gth product was 1229.48 mGy-cm. COMPARISON: Right elbow radiographs 05/01/2023 FINDINGS: Bone alignment is normal. No fracture. There is mild osteoarthritis of acromioclavicular danny int and moderate osteoarthritis of glenohumeral joint. There is no radial head fracture. There is mil d elbow joint osteoarthritis. No elbow joint effusion. There is a large glenohumeral joint effusion. There is subcutaneous fat stranding in the upper arm, consistent with edema versus inflammation. IMPRESSION: 1. No radial head fracture. Reviewed, dictated and finalized at location E. RAL APPELLATE LAW CLERK IMPRESSION: 1. No radial head fracture.
--- NOTE | ~2023-05-01 | XR_ITS ---
EXAMINATION: XR elbow RT min 3V DATE: 05/01/2023 16:19 INDICATION: Nontraumatic right elbow pain and bruising TECHNIQUE: Anteroposterior, two oblique and lateral views of the right elbow were obtained. COMPARISON: None. FINDINGS: Alignment is normal. There is angulation of the cortex at the radial head neck junction on the latera l projection and could not exclude a minimally impacted fracture in the appropriate clinical setting. Alternatively this could be artifact of small marginal osteophytes related to mild osteoarthritis at the right elbow. No other lesions suspicious for fracture identified. No elbow joint effusion. Soft tissues are unremarkable. IMPRESSION: 1. Cortical angulation at the head neck junction of the proximal right radius for which differential would include mildly impacted fracture in the appropriate clinical setting or artifactual appearance resulting from small marginal osteophytes related to mild osteoarthritis at the right elbow. Reviewed, dictated and finalized at location A. NING PROCESSOR IMPRESSION: 1. Cortical angulation at the head neck junction of the proximal right radius f or which differential would include mildly impacted fracture in the appropriate clinical setting or artifactual appearance resulting from small marginal osteo phytes related to mild osteoarthritis at the right elbow.
[2023-05-01 15:19] VITALS: BP 155/60; PULSE 63; RESP 16; TEMP 36.6; O2SAT 95
--- NOTE | 2023-05-01 15:37 | ED.UPPEXIN ---
HPI - Extremity Injury (Upper) General Chief Complaint: Extremity Injury, Upper Stated Complaint: right arm pain Time Seen by Provider: 05/01/23 15:33 Source: patient Mode of arrival: ambulatory Limitations: no limitations History of Present Illness HPI narrative: 67 years old white female presents to the ED with right shoulder, right arm pain started 4 days ago while doing some exercise just raising her arms up and down felt a pop at the right arm later developed swelling and bruises and diffuse tenderness. She denies other injuries. Patient on baby aspirin once a day. Related Data Home Medications Medication Instructions Recorded Confirmed aspirin 81 mg tablet,delayed 81 mg PO DAILY 05/02/21 04/14/23 release levalbuterol HCl 1.25 mg/3 mL 1.25 mg inhalation Q4H 08/28/22 04/14/23 solution for nebulization sertraline 100 mg tablet 100 mg PO DAILY 08/28/22 04/14/23 isosorbide mononitrate 60 mg 120 mg PO DAILY 10/29/22 04/14/23 tablet,extended release 24 hr deutetrabenazine 12 mg tablet 18 mg PO BID 03/02/23 04/14/23 (Austedo) doxazosin 4 mg tablet 4 mg PO QHS 03/02/23 04/14/23 Allergies Allergy/AdvReac Type Severity Reaction Status Date / Time adhesive tape Allergy Mild rash Verified 04/14/23 12:42 tetanus immune globulin Allergy Mild HIVES Verified 04/14/23 12:42 cyclobenzaprine Allergy Unknown TINGLING Verified 04/14/23 12:42 SENSATION IN EXTREMITIES tetanus and diphtheria Allergy Unknown Swelling Verified 04/14/23 12:42 toxoids Tetanus Vaccines and Toxoid Allergy Unknown rash Verified 04/14/23 12:42 FLUOXETINE HCL Allergy Unknown RASH, Uncoded 04/14/23 12:42 SWELLING Review of Systems Review of Systems: All systems reviewed & are unremarkable except as noted in HPI and below PMFSH Past Medical History Medical History Abnormal CT scan Adenomatous colon polyp Bilateral hand pain Bipolar disorder, unspecified Blockage of coronary artery of heart Chronic kidney disease, stage 3 (moderate) Chronic obstructive pulmonary disease, unspecified Constipation Degenerative cervical disc Essential (primary) hypertension Gastritis Gastroparesis HX: breast cancer Inflammatory arthritis Liver cyst Liver mass Lumbar degenerative disc disease Marijuana use Menieres disease Nausea & vomiting BERTA (obstructive sleep apnea) Parkinson disease Screening for colon cancer Screening for osteoporosis Seronegative rheumatoid arthritis of both hands Tardive dyskinesia Surgical History Surgical History History of breast surgery History of cholecystectomy History of hernia surgery History of hysterectomy History of liver biopsy Status post mastectomy Family History Family History Sibling Family history of malignant neoplasm Family history of diabetes mellitus in first degree relative Family history of lupus erythematosus Family history of malignant neoplasm of brain Family history of malignant neoplasm of breast Mother Family history of chronic obstructive pulmonary disease, Onset Age: 76 Patient's mother is Family history of emphysema Family history of malignant neoplasm of breast Father Family history of malignant neoplasm of esophagus, Onset Age: 54 Patient's father is Other Family history of cardiovascular disease Family history of malignant neoplasm of male breast Family history of obesity Social History Social History Smoking packs per day: 0.5 Smoking cigarettes per day: 10.0 Years smoked: 50 Smoking pack-years: 25.00 Smoking status: Current every day smoker Tobacco type: cigarettes Second hand tobacco smoke exposure: Yes Alcohol intake: never Substance use: former Substance use type: marijuana Other substan
== END 2023-05-01 19:15 | disposition home or self-care (01) ==
PROVIDERS: Emergency Provider Emergency Medicine; PCP Family Medicine
DX: S46.011A Strain of muscle(s) and tendon(s) of the rotator cuff of right shoulder, initial encounter (principal); S46.911A Strain of unspecified muscle, fascia and tendon at shoulder and upper arm level, right arm, initial encounter; I12.9 Hypertensive chronic kidney disease with stage 1 through stage 4 chronic kidney disease, or unspecified chronic kidney disease; N18.30 Chronic kidney disease, stage 3 unspecified; G20.A1 Parkinson's disease without dyskinesia, without mention of fluctuations; G47.33 Obstructive sleep apnea (adult) (pediatric); K31.84 Gastroparesis; M19.011 Primary osteoarthritis, right shoulder; M19.121 Post-traumatic osteoarthritis, right elbow; F17.210 Nicotine dependence, cigarettes, uncomplicated; Z85.3 Personal history of malignant neoplasm of breast; Z86.010 Personal history of colon polyps; Z90.49 Acquired absence of other specified parts of digestive tract; Z90.710 Acquired absence of both cervix and uterus; Z79.82 Long term (current) use of aspirin; X50.9XXA Other and unspecified overexertion or strenuous movements or postures, initial encounter; Y93.B9 Activity, other involving muscle strengthening exercises
CPT/HCPCS: 73030; 73080; 73200; 99284; A4565

== ENCOUNTER 2023-05-04 10:47 | Outpatient (CLI) | payer MEDICARE, MEDICAID, SELFPAY ==
--- NOTE | ~2023-05-04 | US_ITS ---
EXAMINATION: US soft tissue UE RT DATE: 05/04/2023 11:49 INDICATION: Right wrist ganglion cyst. Right wrist lump. TECHNIQUE: Multiple grayscale and Doppler ultrasound images of the right upper limb were obtained. COMPARISON: Right hand radiograph 09/19/2021 FINDINGS: There is no ganglion cyst. There are subcentimeter masses with echogenic shadowing areas, c onsistent with calcifications in right wrist in the patient's area of concern. IMPRESSION: 1. Partially calcified masses in right wrist in the patient's area of concern, probably dystrophic ca lcifications. Consider MRI without and with contrast. Reviewed, dictated and finalized at location A. ING ENGINEER IMPRESSION: 1. Partially calcified masses in right wrist in the patient's area of concern, probably dystrophic calcifications. Consider MRI without and with contrast.
== END 2023-05-04 10:48 | disposition home or self-care (01) ==
LOC: ANHIMG 10:48
PROVIDERS: PCP Family Medicine; Visit Provider Nurse Practitioner Family
DX: R22.31 Localized swelling, mass and lump, right upper limb (principal); M25.531 Pain in right wrist
CPT/HCPCS: 76882

== ENCOUNTER 2023-05-28 14:34 | Outpatient (CLI) | payer MEDICARE, MEDICAID, SELFPAY ==
--- NOTE | ~2023-05-28 | CT_ITS ---
EXAMINATION: CT wrist RT wo con DATE: 05/28/2023 15:08 INDICATION: Localized swelling, mass and lump, right wrist. TECHNIQUE: Computed tomography (CT) of the right wrist was performed without intravenous contrast. Au tomated exposure control and iterative reconstruction technique were employed. The dose-length produc t was 307.29 mGy-cm. COMPARISON: None FINDINGS: There is a skin marker at the palmar aspect of the wrist. Bone alignment is normal. No frac ture. There is severe osteoarthritis of first carpometacarpal joint. There are nonaggressive lytic le sions in lunate, likely intraosseous ganglia. There is a benign bone island in capitate. There are 10 mm, 6 mm, and 4 mm fragments of heterotopic ossification palmar to the carpus. IMPRESSION: 1. Heterotopic ossification palmar to the carpus. 2. Severe osteoarthritis of first carpometacarpal joint. Reviewed, dictated and finalized at location E. AS SHOP LABORER
[2023-05-28 14:54] LABS: Estimated Glomerular Filt Rate 25
== END 2023-05-28 14:35 | disposition home or self-care (01) ==
PROVIDERS: PCP Family Medicine; Visit Provider Family Medicine
DX: M19.031 Primary osteoarthritis, right wrist (principal)
CPT/HCPCS: 73200

== ENCOUNTER 2023-09-15 13:09 | Outpatient (CLI) | payer MEDICARE, MEDICAID, SELFPAY ==
--- NOTE | ~2023-09-15 | XR_ITS ---
EXAMINATION: XR chest 2V 09/15/2023 13:28 INDICATION: Active cough PROCEDURE: 2 view chest COMPARISON: Comparison to multiple prior studies sequentially, with oldest reviewed study dated 2017. FINDINGS: The lungs are clear. There are breast implants. The cardiomediastinal silhouette is within normal limits. There are no pleural effusions. There is no pneumothorax suspected. IMPRESSION: 1: NO ACUTE CARDIOPULMONARY DISEASE. Reviewed, dictated and finalized at location B.
== END 2023-09-15 13:10 | disposition home or self-care (01) ==
PROVIDERS: PCP Family Medicine; Visit Provider Family Medicine
DX: R09.89 Other specified symptoms and signs involving the circulatory and respiratory systems (principal)
CPT/HCPCS: 71046

== ENCOUNTER 2023-10-13 15:13 | Inpatient (IN) | payer MEDICARE, MEDICAID, SELFPAY ==
--- NOTE | ~2023-10-13 | CT_ITS ---
EXAMINATION: CT abdomen pelvis wo con DATE: 10/13/2023 17:48 INDICATION: Small bowel obstruction. Nausea and vomiting. TECHNIQUE: Computed tomography (CT) of the abdomen and pelvis was performed without intravenous contr ast. Automated exposure control and iterative reconstruction technique were employed. The dose-length product was 580.64 mGy-cm. COMPARISON: CT abdomen and pelvis 07/19/2021 FINDINGS: The visualized portions of the lung bases demonstrate mild atelectasis. No pleural effusion . The heart size is normal. There is a small pericardial effusion. There are bilateral breast implant s. There are cysts in the liver measuring up to 13 mm. There is a gallstone in the gallbladder, which is small. The spleen is normal. There are calcifications of the pancreas, consistent with chronic pa ncreatitis. The adrenal glands are normal. There is a 5 mm cyst with calcification in right kidney. T here is a 3 mm stone in right kidney. There are 3 stones in left kidney measuring up to 4 mm. There i s a 10 mm hemorrhagic cyst in left kidney. There is a 16 mm cyst in left kidney. There is diverticulo sis of the colon without evidence of diverticulitis. The appendix is normal. There are multiple dilat ed loops of small bowel with transition point in the anterior abdomen. The stomach is distended. Ther e are no pathologically enlarged lymph nodes. There is no free intraperitoneal fluid. There is severe lumbar spondylosis. IMPRESSION: 1. Small bowel obstruction with transition point in the anterior abdomen. Reviewed, dictated and finalized at location E.
--- NOTE | ~2023-10-13 | XR_ITS ---
EXAMINATION: XR abdomen/kub 1V DATE: 10/17/2023 05:40 INDICATION: Bowel obstruction TECHNIQUE: A supine view of the abdomen on 2 radiographs was obtained. COMPARISON: 10/16/2023 FINDINGS: Nasogastric tube with tip in proximal side port in the body of the stomach. There are persistent cont rast-filled dilated loops of small bowel scattered throughout the abdomen and pelvis. Contrast does n ot appear to have yet to reach the cecum consistent with persistent small bowel obstruction. IMPRESSION: 1. Persistent small bowel obstruction with no discernible contrast having reached the cecum. Reviewed, dictated and finalized at location A. IMPRESSION: 1. Persistent small bowel obstruction with no discernible contrast having reach ed the cecum.
--- NOTE | ~2023-10-13 | XR_ITS ---
EXAMINATION: XR sm bowel follow through WS DATE: 10/16/2023 16:13 INDICATION: Small bowel obstruction TECHNIQUE: Boring Machine Operator Double End radiograph(s) of the abdomen was/were obtained. Oral contrast was administered, and sequential radiographs of the abdomen were obtained over 7 hours. COMPARISON: CT dated 10/13/2023 FINDINGS: Boring Machine Operator Double End radiograph demonstrates the nasogastric tube tip and proximal side port in the body the stomach . There are multiple dilated gas-filled loops of small bowel throughout the abdomen. Subsequent image s demonstrate injected contrast beginning in the stomach and slowly advancing through the dilated pro ximal to mid small bowel over the course of the initial 3 hours with minimal progression of the follo wing 4 hours at which time the study was terminated with contrast not having reached the cecum. Insta ntly noted is a small diverticulum arising from the second portion of the duodenum. IMPRESSION: 1. Persistent small bowel obstruction. Reviewed, dictated and finalized at location A.
--- NOTE | ~2023-10-13 | XR_ITS ---
Upright portable view of the abdomen Clinical history: NG tube placement Findings: NG tube in place, side port below the diaphragm. Dilated small bowel loops in the upper abd omen are compatible small bowel obstruction. No free air evident. No abnormal mass lesion or calcific ation is seen. Osseous structures are intact. Impression: NG tube in satisfactory position. Small bowel obstruction. Reviewed, dictated and finalized at location . Impression: NG tube in satisfactory position. Small bowel obstruction.
--- NOTE | ~2023-10-13 | XR_ITS ---
EXAMINATION: XR abdomen gastric tube insert DATE: 10/13/2023 20:06 INDICATION: Nasogastric tube placement. TECHNIQUE: An upright view of the abdomen was obtained. COMPARISON: CT abdomen and pelvis 10/13/2023 FINDINGS: The lower abdomen is excluded. There are dilated loops of bowel, consistent with small erin l obstruction. The nasogastric tube tip is in the stomach. A calcified left lung nodule is consistent with old granulomatous disease. There are surgical clips in left axilla. IMPRESSION: 1. Nasogastric tube tip in the stomach. 2. Small bowel obstruction. Reviewed, dictated and finalized at location E.
--- NOTE | ~2023-10-13 | XR_ITS ---
Supine and upright views of the abdomen Clinical history: Obstruction Findings: NG tube in place, side port just above the GE junction region. Dilated small bowel loops ar e compatible small bowel obstruction. No free air evident. No abnormal mass lesion or calcification i s seen. Osseous structures are intact. Impression: Small bowel obstruction. NG tube side-port is just above the GE junction. Further advancement of the NG tube into the stomach is recommended. Reviewed, dictated and finalized at location M. Impression: Small bowel obstruction. NG tube side-port is just above the GE junction. Further advancement of the NG tube into the stomach is recommended.
[2023-10-13 16:00] VITALS: BP 162/89; PULSE 59; RESP 18; TEMP 36.4; O2SAT 100
[2023-10-13 17:42] LABS: Estimated CRCL calculation 22 ml/min; Estimated Glomerular Filt Rate 24
[2023-10-13 17:45] LABS: Hematocrit 49.3 % (37.0-47.0); Mean Corpuscular HGB Conc 32.5 g/dl (32-36); Mean Corpuscular Hemoglobin 30.5 pg (26-34); Mean Corpuscular Volume 93.9 fl (80-100); Mean Platelet Volume 11.5 fl (7.4-10.4); Platelet Count Result 371 k/mm3 (150-375); Red Blood Count 5.25 M/mm3 (4.2-5.4); Red Cell Distribution Width 14.8 % (11.5-14.5)
[2023-10-13 17:50] LABS: Alanine Aminotransferase 19 U/L (6-35); Albumin Level 4.7 g/dL (3.5-5.1); Alkaline Phosphatase 144 U/L (38-126); Anion Gap 15 mmol/L (4-12); Aspartate Amino Transferase 30 U/L (14-36); Bilirubin,Total 0.8 mg/dL (0.2-1.3); Blood Urea Nitrogen 47 mg/dL (7-17); Calcium 10.2 mg/dL (8.4-10.2); Carbon Dioxide 27 mmol/L (22-30); Chloride 101 mmol/L (98-107); Estimated CRCL calculation 25 ml/min; Estimated Glomerular Filt Rate 26; Glucose 153 mg/dL (65-110); Lipase 63 U/L (23-300); Potassium 4.5 mmol/L (3.4-5.0); Sodium 143 mmol/L (137-145)
[2023-10-13] MEDS: ONDANSETRON INJ 4 MG/2 ML VIAL IV PUSH ×2 (18:07→19:35)
[2023-10-13 18:08] LABS: Band Neutrophils Percent 14 % (0-6); Lymphocytes Absolute Manual 0.56 K/mm3 (1.1-4.5); Lymphocytes Percent Manual 2 % (18-44); Monocytes Absolute Manual 0.28 K/mm3 (0.1-0.90); Monocytes Percent Manual 1 % (3-9); Neutrophils Absolute Manual 27.16 K/mm3 (1.7-7.2); Neutrophils Percent Manual 83 % (46-73); Platelet Estimate Adequate (Adequate); Total Cells Counted 100
[2023-10-13] MEDS: MORPHINE SULFATE (*CRX) 4 MG/ML INJ IV PUSH ×2 (18:08→22:37)
[2023-10-13] MEDS: SODIUM CHLORIDE 0.9% IV 1,000 ML 999 ML IV CONT ×2 (18:08→19:35)
[2023-10-13 18:09] LABS: Large Platelets Present; Ovalocytes 1+; Schistocytes None Seen
--- NOTE | 2023-10-13 18:20 | ED.ABDPAIN ---
HPI - Abdominal Pain General Chief Complaint: Abdominal Pain <JOSE Flores Last Filed: 10/13/23 20:48> Stated Complaint: constipation <JOSE Flores Last Filed: 10/13/23 20:48> Time Seen by Provider: 10/13/23 17:29 <JOSE Flores Last Filed: 10/13/23 20:48> Source: patient <JOSE Flores Last Filed: 10/13/23 20:48> Mode of arrival: ambulatory <JOSE Flores Last Filed: 10/13/23 20:48> Limitations: no limitations <JOSE Flores Last Filed: 10/13/23 20:48> History of Present Illness HPI narrative: Patient is a 67-year-old female who presents the ED with report of abdominal pain. Patient reports having lower and periumbilical abdominal pain for the last 2 days. She reports having persistent nausea, vomiting, subjective fevers. Her last bowel movement was 2 days ago and normal. She denies history of similar abdominal pain. Denies history of bowel obstruction. She does have history of cholecystectomy, hysterectomy, hernia repair. Denies urinary complaints. <JOSE Flores Last Filed: 10/13/23 20:48> Related Data Home Medications: Home Medications Medication Instructions Recorded Confirmed aspirin 81 mg tablet,delayed 81 mg PO DAILY 05/02/21 10/13/23 release sertraline 100 mg tablet 150 mg PO DAILY 08/28/22 10/13/23 isosorbide mononitrate 60 mg 120 mg PO DAILY 10/29/22 10/13/23 tablet,extended release 24 hr deutetrabenazine 12 mg tablet 24 mg PO BID 03/02/23 10/13/23 (Austedo) pantoprazole 40 mg tablet,delayed 40 mg PO BID 10/06/23 10/13/23 release albuterol sulfate 1.25 mg/3 mL 1.25 mg inhalation Q6H PRN 10/13/23 10/13/23 solution for nebulization Shortness Of Breath Or Wheezing albuterol sulfate 90 mcg/actuation 2 puff inhalation Q4H PRN 10/13/23 10/13/23 aerosol inhaler Shortness Of Breath amantadine HCl 100 mg capsule 100 mg PO QHS 10/13/23 10/13/23 amlodipine 10 mg tablet 10 mg PO DAILY 10/13/23 10/13/23 atorvastatin 80 mg tablet 80 mg PO QHS 10/13/23 10/13/23 carvedilol 25 mg tablet 25 mg PO Q12H 10/13/23 10/13/23 clopidogrel 75 mg tablet 75 mg PO DAILY 10/13/23 10/13/23 hydrocodone 10 mg-acetaminophen 1 tablet PO Q6H PRN pain 4-6 10/13/23 10/13/23 325 mg tablet topiramate 25 mg tablet 50 mg PO Q12H 10/13/23 10/13/23 trazodone 100 mg tablet 100 mg PO QHS PRN Sleep 10/13/23 10/13/23 <JOSE Flores Last Filed: 10/13/23 20:48> Allergies/Adverse Reactions: Allergies Allergy/AdvReac Type Severity Reaction Status Date / Time adhesive tape Allergy Mild rash Verified 10/13/23 16:03 tetanus immune globulin Allergy Mild HIVES Verified 10/13/23 16:03 cyclobenzaprine Allergy Unknown TINGLING Verified 10/13/23 16:03 SENSATION IN EXTREMITIES fluoxetine Allergy Unknown Rash,Swelli Verified 10/14/23 08:04 ng tetanus and diphtheria Allergy Unknown Swelling Verified 10/06/23 10:57 toxoids Tetanus Vaccines and Toxoid Allergy Unknown rash Verified 10/06/23 10:57 <JOSE Flores Last Filed: 10/13/23 20:48> Review of Systems Review of Systems: CONSTITUTIONAL: Denies fever, chills, or sweats. GASTROINTESTINAL: See HPI. GENITOURINARY: Denies dysuria or hematuria. <JOSE Flores Last Filed: 10/13/23 20:48> All systems reviewed & are unremarkable except as noted in HPI and below <JOSE Flores Last Filed: 10/13/23 20:48> [facility] Past Medical History Medical History: Medical History Abnormal CT scan Adenomatous colon polyp Bilateral hand pain Bipolar disorder, unspecified Blockage of coronary artery of heart Chronic kidney disease, stage 3 (moderate) Chronic obstructive pulmonary disease, unspecified Constipation Degenerative cervical disc Essential (primary) hypertension Gastritis Gastroparesis HX: dorothea
[2023-10-13 18:52] LABS: Lactic Acid Reflex 1.4 mmol/L (0.7-2.0)
[2023-10-13 18:56] LABS: Appearance Urine Cloudy (Clear); Bacteria Urine 1+ /hpf; Bilirubin Urine 2+ (Negative); Blood Urine Negative (Negative); Color Urine Dark Yellow (Yellow); Glucose Urine UA Negative (Negative); Hyaline Casts Urine Present /lpf; Ketones Urine Trace mg/dL (Negative); Leukocyte Esterase Ur Trace LEU/UL (Negative); Need Manual Microscopic Reviewed; Nitrate Urine Negative (Negative); Non Pathogenic Casts >20; Protein Urine 2+ mg/dL (Negative); Specific Grav Ur 1.022 (1.001-1.035); Squamous Epithelial Cell Urine Many /hpf (Few); WBC Urine 0-5 /hpf (0-3)
[2023-10-13 18:57] LABS: Add Urine Microscopic? YES
[2023-10-13 19:25] VITALS: BP 210/89; PULSE 54; RESP 15; O2SAT 96
[2023-10-13 20:32] VITALS: BP 195/76; PULSE 60; RESP 16; O2SAT 99
[2023-10-13 22:21] VITALS: BP 195/98; PULSE 59; RESP 20; TEMP 36.9; O2SAT 99; BMI 27.6
[2023-10-13] MEDS: SODIUM CHLORIDE 0.9% IV 1,000 ML 100 ML IV CONT (22:37)
--- NOTE | 2023-10-13 23:11 | ADMGEN ---
This patient, Eduarda Wall, was admitted to Medical Room 346-01. Patient/family oriented to hospital policies and general routines including ID bracelet, bed and alarms, visiting hours, pain management, procedures, bathroom and other care routines, personal items, smoking policy, room service/diet, and visiting hours. Information on how to activate the Rapid Response Team has been discussed. Patient/Family are encouraged to report perceived risks to care and to ask questions if they do not understand what they are told or what they should do.
--- NOTE | 2023-10-13 23:12 | PM.IMHP ---
H&P: HPI History of Present Illness Date/Time: 10/13/23 23:12 Chief Complaint: Abdominal pain Narrative: Patient is 67-year-old female with multiple abdominal surgeries came to the hospital complaining of lower abdominal pain for the last 2 days associated with some persistent vomiting no fever no chills. Patient's last bowel movement was for 2-3 days ago which was normal. Patient was diagnosed with small-bowel obstruction on his CT scan. Patient on multiple medical problems will continue to monitor. Patient in the emergency room was started on IV hydration and NG suction Review of Systems Review of Systems: All systems reviewed & are unremarkable except as noted in HPI and below PMFSH Past Medical History Medical History Abnormal CT scan Adenomatous colon polyp Bilateral hand pain Bipolar disorder, unspecified Blockage of coronary artery of heart Chronic kidney disease, stage 3 (moderate) Chronic obstructive pulmonary disease, unspecified Constipation Degenerative cervical disc Essential (primary) hypertension Gastritis Gastroparesis HX: breast cancer Inflammatory arthritis Labral tear of long head of right biceps tendon Liver cyst Liver mass Lumbar degenerative disc disease Marijuana use Menieres disease Nausea & vomiting BERTA (obstructive sleep apnea) Parkinson disease Right shoulder pain Screening for colon cancer Screening for osteoporosis Seronegative rheumatoid arthritis of both hands Tardive dyskinesia Surgical History Surgical History History of breast surgery History of cholecystectomy History of hernia surgery History of hysterectomy History of liver biopsy Status post mastectomy Family History Family History Sibling Family history of malignant neoplasm Family history of diabetes mellitus in first degree relative Family history of lupus erythematosus Family history of malignant neoplasm of brain Family history of malignant neoplasm of breast Mother Family history of chronic obstructive pulmonary disease, Onset Age: 76 Patient's mother is Family history of emphysema Family history of malignant neoplasm of breast Father Family history of malignant neoplasm of esophagus, Onset Age: 54 Patient's father is Other Family history of cardiovascular disease Family history of malignant neoplasm of male breast Family history of obesity Social History Social History Smoking packs per day: 0.5 Smoking cigarettes per day: 10.0 Years smoked: 50 Smoking pack-years: 25.00 Smoking status: Current every day smoker Tobacco type: cigarettes Second hand tobacco smoke exposure: Yes Alcohol intake: never Substance use: current Substance use type: marijuana Other substance usage details: DAILY Do You Feel Safe in your Home?: Yes Lack of Transportation: No Lack of Food: Sometimes True Current Housing: I Have Housing Concerned About Future Housing: No Difficulty Paying Gas/Electric Bills: YES Difficulty Paying for Meds: YES Currently Unemployed: No Education: Decline to Answer Difficulty w/ Childcare or Family Care: No Living arrangements: with family Gender identity (if verbalized by the patient): Female Spiritual care concerns: No Meds Home Medications and Allergies Home Medications Medication Instructions Recorded Confirmed Type aspirin 81 mg tablet,delayed 81 mg PO DAILY 05/02/21 10/06/23 History release cholecalciferol (vitamin D3) 25 25 mcg PO DAILY #90 caps 12/05/21 10/06/23 Rx mcg (1,000 unit) capsule Trelegy Ellipta 100 mcg-62.5 1 inh inhalation DAILY #60 ea 07/25/22 10/06/23 Rx mcg-25 mcg powder for inhalation ([id number]) se
[2023-10-13 23:59] LABS: Hematocrit 41.8 % (37.0-47.0); Hemoglobin 13.3 g/dL (12.0-15.0); Mean Corpuscular HGB Conc 31.8 g/dl (32-36); Mean Corpuscular Hemoglobin 30.7 pg (26-34); Mean Corpuscular Volume 96.5 fl (80-100); Mean Platelet Volume 11.3 fl (7.4-10.4); Platelet Count Result 254 k/mm3 (150-375); Red Blood Count 4.33 M/mm3 (4.2-5.4); Red Cell Distribution Width 14.9 % (11.5-14.5); White Blood Count 21.3 K/mm3 (4.5-10.0)
[2023-10-14 00:17] LABS: Alanine Aminotransferase 15 U/L (6-35); Albumin Level 3.8 g/dL (3.5-5.1); Alkaline Phosphatase 111 U/L (38-126); Anion Gap 11 mmol/L (4-12); Aspartate Amino Transferase 24 U/L (14-36); Bilirubin,Total 0.5 mg/dL (0.2-1.3); Blood Urea Nitrogen 50 mg/dL (7-17); Calcium 8.4 mg/dL (8.4-10.2); Carbon Dioxide 25 mmol/L (22-30); Chloride 108 mmol/L (98-107); Estimated CRCL calculation 24 ml/min; Estimated Glomerular Filt Rate 28; Glucose 115 mg/dL (65-110); Sodium 144 mmol/L (137-145)
[2023-10-14] MEDS: MORPHINE SULFATE (*CRX) 4 MG/ML INJ IV PUSH ×4 (03:17→20:59)
[2023-10-14] MEDS: ONDANSETRON INJ 4 MG/2 ML VIAL IV PUSH ×3 (03:17→21:00)
[2023-10-14 06:00] VITALS: BP 177/77; PULSE 59; RESP 18; TEMP 36.8; O2SAT 100
[2023-10-14 08:27] LABS: Alanine Aminotransferase 15 U/L (6-35); Albumin Level 3.8 g/dL (3.5-5.1); Alkaline Phosphatase 113 U/L (38-126); Anion Gap 11 mmol/L (4-12); Aspartate Amino Transferase 34 U/L (14-36); Bilirubin,Total 0.6 mg/dL (0.2-1.3); Blood Urea Nitrogen 53 mg/dL (7-17); Calcium 8.2 mg/dL (8.4-10.2); Carbon Dioxide 25 mmol/L (22-30); Chloride 109 mmol/L (98-107); Estimated CRCL calculation 24 ml/min; Estimated Glomerular Filt Rate 28; Glucose 113 mg/dL (65-110); Potassium 3.8 mmol/L (3.4-5.0); Sodium 145 mmol/L (137-145)
[2023-10-14] MEDS: PANTOPRAZOLE SODIUM IV 40 MG VIAL IV PUSH ×2 (09:45→20:14)
[2023-10-14] MEDS: SODIUM CHLORIDE 0.9% IV 1,000 ML 100 ML IV CONT ×2 (09:50→22:00)
[2023-10-14] MEDS: ENOXAPARIN 30 MG/0.3 ML SYRINGE SUB-Q (09:51)
--- NOTE | 2023-10-14 10:29 | PM.CNGS ---
Assessment and Plan Assessment and plan (1) SBO (small bowel obstruction): Code(s): K56.609 - Unspecified intestinal obstruction, unspecified as to partial versus complete obstruction Status: Acute Assessment and Plan: CT evidence of a small bowel obstruction with transition point in the anterior abdomen. She has an extensive history of abdominal surgeries and likely has intraabdominal adhesions causing the obstruction. Her WBC count was 28,000 on admission, which is down to 20,000 today. Lactic acid was normal. She does not have any diffuse peritoneal signs on exam. We would recommend to continue conservative management for now with NG tube decompression, bowel rest, and IV fluids. No signs of bowel function at this time. Will follow with serial abdominal exams and imaging. I will order an obstructive series for tomorrow morning. Could consider ordering a water-soluble small bowel follow through in the next few days depending on how she is improving. Discussed with the patient that she would be a high risk surgical candidate given her multiple co-morbidities and antiplatelet therapy with a recent cardiac stent. We will need to hold her Plavix for now and follow her closely. If the small bowel obstruction does not improve with conservative measures, then she may eventually require surgical exploration. 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 Hold for now. (3) CAD (coronary artery disease): Code(s): I25.10 - Atherosclerotic heart disease of [place] coronary artery without angina pectoris Status: Acute (4) Chronic obstructive pulmonary disease, unspecified: Qualifiers: COPD type: unspecified COPD Qualified Code(s): J44.9 - Chronic obstructive pulmonary disease, unspecified Code(s): J44.9 - Chronic obstructive pulmonary disease, unspecified Status: Acute (5) Chronic pain: Code(s): G89.29 - Other chronic pain Status: Acute Assessment and Plan: Chronic pain related to RA. She reportedly takes hydrocodone as needed for her pain. (6) Chronic kidney disease, stage 3 (moderate): Code(s): N18.3 - Chronic kidney disease, stage 3 (moderate) Status: Acute (7) Bipolar disorder, unspecified: Code(s): F31.9 - Bipolar disorder, unspecified Status: Acute (8) Parkinson disease: Code(s): G20 - Parkinson's disease Status: Acute (9) Tardive dyskinesia: Code(s): G24.01 - Drug induced subacute dyskinesia Status: Acute Plan I have discussed the patient's case and plan of care with Dr. Marshall. Thank you for allowing us to see the patient in consultation and we will continue to follow along with you. History of Present Illness Consult details Consult date: 10/14/23 Reason for consult: other (Small-bowel obstruction) Requesting physician: Julia Montes PA-C Narrative: This is a 67-year-old woman with history of CAD with recent cardiac stent in August 2023 on Plavix and multiple medical problems, who we have been asked to see in surgical consultation for a small-bowel obstruction. She presented to the ED yesterday with complaints of abdominal pain for 1 week. She reports chronic constipation that she typically treats with stool softeners and laxatives as needed. About a week ago, she noticed bloating and constipation. She tried taking stool softeners. About 3 days ago, she developed abdominal distension, nausea, vomiting, and periumbilical abdominal pain. She thought this was related to her constipation and tried taking 2 laxatives without relief. She has not been passing flatus. Her last bowel movement was 2 days ago. She then presented to the ED for further evaluation. Labs showed a white blood cell count 28,000, hemoglobin 16, hematocrit 49.3, B
--- NOTE | 2023-10-14 14:18 | P.PNIM_ITS ---
Progress Note: A&P Assessment and Plan (1) SBO (small bowel obstruction): Code(s): K56.609 - Unspecified intestinal obstruction, unspecified as to partial versus complete obstruction Status: Acute Assessment and Plan: * Abd CT Small bowel obstruction * Abd Xray NG tube present with SBO noted * IV fluid resuscitation continue * Lactic acid 1.4 * NG tube in place at low suction * WBC is 28k on admission currently 21.3 * Surgical consult recommending NPO and continue NG tube * Two sets of Blood cultures pending * Monitor albumin' Monitoring of mental status. * No antibiotics needed at this point (2) Leukocytosis: Qualifiers: Leukocytosis type: unspecified Qualified Code(s): D72.829 - Elevated white blood cell count, unspecified Code(s): D72.829 - Elevated white blood cell count, unspecified Status: Acute Assessment and Plan: * WBC elevated at 28.0 on admission * Current WBC is 21.3 * Trend WBCs * Most likely reactive * hold on antibiotics for now * No source of infection noted (3) Chronic pain: Code(s): G89.29 - Other chronic pain Status: Acute Assessment and Plan: * Continue Morphine * Restart home medication as able (4) Acute on chronic kidney failure: Code(s): N17.9 - Acute kidney failure, unspecified; N18.9 - Chronic kidney disease, unspecified Status: Acute Assessment and Plan: * Creatinine on admission 2.10 * CKD stage 3B * Current creatinine is 1.80 * Baseline 1.3-1.6 * Continue to trend labs * Avoid nephrotoxic medications * Renal adjust medications as indicated (5) CAD (coronary artery disease): Code(s): I25.10 - Atherosclerotic heart disease of [place] coronary artery without angina pectoris Status: Acute Assessment and Plan: * S/P stent placement on 08/17/2023 * Plavix on hold currently with NPO status * Consider adding full dose lovenox * Cardiac monitoring * Restart plavix as able Time Spent With Patient Time: 48 minutes Time with patient: Greater than 35 minutes Subjective Date/time seen: 10/14/23 1100 Interval history: 10/13/23 23:12 Patient is 67-year-old female with multiple abdominal surgeries came to the hospital complaining of lower abdominal pain for the last 2 days associated with some persistent vomiting no fever no chills. Patient's last bowel movement was for 2-3 days ago which was normal. Patient was diagnosed with small-bowel obstruction on his CT scan. Patient on multiple medical problems will continue to monitor. Patient in the emergency room was started on IV hydration and NG suction 10/14/2023 1100 Patient is lying in bed. Patient states she is still having some pain in her belly however she states she is thirsty and hungry. Currently she is draining a lot of brown liquid from her belly. She denies any chest pain, shortness a breath. She is still having nausea and her bowel sounds are not active at this time. Review of Systems Review of Systems: All systems reviewed & are unremarkable except as noted in HPI and below Exam Narrative: General: well-nourished, ill-appearing 67-year-old female, laying in bed, uncomfortable, NARD Neuro: awake, alert and oriented x4, speech clear, no focal neuro deficits noted HEENMT: normocephalic, atraumatic, EOMI, sclerae anicteric, moist oral mucosa
--- NOTE | 2023-10-14 14:18 | PM.IMPN ---
Progress Note: A&P Assessment and Plan (1) SBO (small bowel obstruction): Code(s): K56.609 - Unspecified intestinal obstruction, unspecified as to partial versus complete obstruction Status: Acute Assessment and Plan: Abd CT Small bowel obstruction Abd Xray NG tube present with SBO noted IV fluid resuscitation continue Lactic acid 1.[address] at low suction WBC is 28k on admission currently 21.3 Surgical consult recommending NPO and continue NG tube Two sets of Blood cultures pending Monitor albumin' Monitoring of mental status. No antibiotics needed at this point (2) Leukocytosis: Qualifiers: Leukocytosis type: unspecified Qualified Code(s): D72.829 - Elevated white blood cell count, unspecified Code(s): D72.829 - Elevated white blood cell count, unspecified Status: Acute Assessment and Plan: WBC elevated at 28.0 on admission Current WBC is 21.3 Trend WBCs Most likely reactive hold on antibiotics for now No source of infection noted (3) Chronic pain: Code(s): G89.29 - Other chronic pain Status: Acute Assessment and Plan: Continue Morphine Restart home medication as able (4) Acute on chronic kidney failure: Code(s): N17.9 - Acute kidney failure, unspecified; N18.9 - Chronic kidney disease, unspecified Status: Acute Assessment and Plan: Creatinine on admission 2.10 CKD stage 3B Current creatinine is 1.80 Baseline 1.3-1.6 Continue to trend labs Avoid nephrotoxic medications Renal adjust medications as indicated (5) CAD (coronary artery disease): Code(s): I25.10 - Atherosclerotic heart disease of [place] coronary artery without angina pectoris Status: Acute Assessment and Plan: S/P stent placement on 08/17/2023 Plavix on hold currently with NPO status Consider adding full dose lovenox Cardiac monitoring Restart plavix as able Time Spent With Patient Time: 48 minutes Time with patient: Greater than 35 minutes Subjective Date/time seen: 10/14/23 1100 Interval history: 10/13/23 23:12 Patient is 67-year-old female with multiple abdominal surgeries came to the hospital complaining of lower abdominal pain for the last 2 days associated with some persistent vomiting no fever no chills. Patient's last bowel movement was for 2-3 days ago which was normal. Patient was diagnosed with small-bowel obstruction on his CT scan. Patient on multiple medical problems will continue to monitor. Patient in the emergency room was started on IV hydration and NG suction 10/14/2023 1100 Patient is lying in bed. Patient states she is still having some pain in her belly however she states she is thirsty and hungry. Currently she is draining a lot of brown liquid from her belly. She denies any chest pain, shortness a breath. She is still having nausea and her bowel sounds are not active at this time. Review of Systems Review of Systems: All systems reviewed & are unremarkable except as noted in HPI and below Exam Narrative: General: well-nourished, ill-appearing 67-year-old female, laying in bed, uncomfortable, NARD Neuro: awake, alert and oriented x4, speech clear, no focal neuro deficits noted HEENMT: normocephalic, atraumatic, EOMI, sclerae anicteric, moist oral mucosa Respiratory: Clear to auscultation bilaterally without crackles, rhonchi or wheezes, nonlabored breathing Cardio: regular rate, regular rhythm with S1-S2 Abdomen: nondistended, no bowel sounds noted, soft, nontender to palpation Extremities: no edema, erythema, or tenderness to palpation, DP pulses 2+ bilaterally Skin: no rashes or lesions, warm and dry Psych: appropriate mood and affect, judgment and insight intact Objective Data Vital Signs Vital Signs: Vital Signs - 24 hr 10/13/23 16:00 10/13/23 19:25 10/13/23 20:32 Temperature 97.5
[2023-10-14 14:57] VITALS: BP 175/71; PULSE 59; RESP 17; TEMP 36.4; O2SAT 98
[2023-10-14] MEDS: hydrALAZINE HCL 20 MG/ML VIAL 10 MG IV PUSH (20:15)
[2023-10-14 20:56] VITALS: BP 173/62; PULSE 55; RESP 18; TEMP 36.7; O2SAT 100
[2023-10-14 21:00] VITALS: O2SAT 100
[2023-10-14 23:15] LABS: Hemoglobin 12.7 g/dL (12.0-15.0); Mean Corpuscular Volume 96.9 fl (80-100); Mean Platelet Volume 11.5 fl (7.4-10.4); Platelet Count Result 196 k/mm3 (150-375); Red Blood Count 4.23 M/mm3 (4.2-5.4); Red Cell Distribution Width 14.9 % (11.5-14.5); White Blood Count 9.1 K/mm3 (4.5-10.0)
[2023-10-15] VITALS (9 sets, daily range): BP systolic 150–198; BP diastolic 72–83; PULSE 58–66; RESP 16–20; TEMP 36.4–36.9; O2SAT 95–99
[2023-10-15] MEDS: MORPHINE SULFATE (*CRX) 4 MG/ML INJ IV PUSH ×3 (04:02→20:10)
[2023-10-15] MEDS: hydrALAZINE HCL 20 MG/ML VIAL 10 MG IV PUSH ×2 (05:28→20:10)
[2023-10-15 06:22] LABS: Alanine Aminotransferase 15 U/L (6-35); Albumin Level 3.6 g/dL (3.5-5.1); Alkaline Phosphatase 107 U/L (38-126); Anion Gap 10 mmol/L (4-12); Aspartate Amino Transferase 27 U/L (14-36); Bilirubin,Total 0.5 mg/dL (0.2-1.3); Blood Urea Nitrogen 49 mg/dL (7-17); Calcium 7.8 mg/dL (8.4-10.2); Carbon Dioxide 26 mmol/L (22-30); Chloride 111 mmol/L (98-107); Estimated CRCL calculation 31 ml/min; Estimated Glomerular Filt Rate 38; Glucose 101 mg/dL (65-110); Magnesium 2.1 mg/dL (1.6-2.3); Potassium 3.5 mmol/L (3.4-5.0); Sodium 147 mmol/L (137-145)
[2023-10-15] MEDS: ENOXAPARIN 30 MG/0.3 ML SYRINGE SUB-Q (08:46)
[2023-10-15] MEDS: PANTOPRAZOLE SODIUM IV 40 MG VIAL IV PUSH ×2 (08:46→20:09)
--- NOTE | 2023-10-15 11:34 | P.PNIM_ITS ---
Progress Note: A&P Assessment and Plan (1) SBO (small bowel obstruction): Code(s): K56.609 - Unspecified intestinal obstruction, unspecified as to partial versus complete obstruction Status: Acute Assessment and Plan: * Abd CT Small bowel obstruction * Abd Xray NG tube present with SBO noted, * Xray from 10/15/2023 still shows SBO * IV fluid resuscitation continued, with KCL in 1/2NS * Lactic acid 1.4 * NG tube in place at low suction * WBC is 28k on admission currently 9.1 * Surgical consult recommending NPO and continue NG tube * Two sets of Blood cultures BGTD * Monitor albumin' Monitoring of mental status. * No antibiotics needed at this point (2) Leukocytosis: Qualifiers: Leukocytosis type: unspecified Qualified Code(s): D72.829 - Elevated white blood cell count, unspecified Code(s): D72.829 - Elevated white blood cell count, unspecified Status: Acute Assessment and Plan: * WBC elevated at 28.0 on admission * Current WBC is 9.1 * Trend WBCs * Most likely reactive * hold on antibiotics for now * No source of infection noted (3) Chronic pain: Code(s): G89.29 - Other chronic pain Status: Acute Assessment and Plan: * Continue Morphine * Restart home medication as able (4) Acute on chronic kidney failure: Code(s): N17.9 - Acute kidney failure, unspecified; N18.9 - Chronic kidney disease, unspecified Status: Acute Assessment and Plan: * Creatinine on admission 2.10 * CKD stage 3B * Current creatinine is 1.40 * Baseline 1.3-1.6 * Continue to trend labs * Avoid nephrotoxic medications * Renal adjust medications as indicated (5) CAD (coronary artery disease): Code(s): I25.10 - Atherosclerotic heart disease of [place] coronary artery without angina pectoris Status: Acute Assessment and Plan: * S/P stent placement on 08/17/2023 * Plavix on hold currently with NPO status * Consider adding full dose lovenox * Cardiac monitoring * Restart plavix as able Plan Spoke and collaborated with general surgery. Labs and imaging review continue current plan of care Time Spent With Patient Time: 52 minutes Time with patient: Greater than 35 minutes Subjective Date/time seen: 07/11/24 11:34 Interval history: 10/13/23 23:12 Patient is 67-year-old female with multiple abdominal surgeries came to the hospital complaining of lower abdominal pain for the last 2 days associated with some persistent vomiting no fever no chills. Patient's last bowel movement was for 2-3 days ago which was normal. Patient was diagnosed with small-bowel obstruction on his CT scan. Patient on multiple medical problems will continue to monitor. Patient in the emergency room was started on IV hydration and NG suction 10/14/2023 1100 Patient is lying in bed. Patient states she is still having some pain in her belly however she states she is thirsty and hungry. Currently she is draining a lot of brown liquid from her belly. She denies any chest pain, shortness a breath. She is still having nausea and her bowel sounds are not active at this time. 10/15/2023 0945 Patient is still experiencing significant pain in her abdomen. She denies any current chest pain however does have some nausea. NG tube is still sucking out as a thick brown fluid from her abdomen. She did have an obstructive series t
--- NOTE | 2023-10-15 11:34 | PM.IMPN ---
Progress Note: A&P Assessment and Plan (1) SBO (small bowel obstruction): Code(s): K56.609 - Unspecified intestinal obstruction, unspecified as to partial versus complete obstruction Status: Acute Assessment and Plan: Abd CT Small bowel obstruction Abd Xray NG tube present with SBO noted, Xray from 10/15/2023 still shows SBO IV fluid resuscitation continued, with KCL in 1/2NS Lactic acid 1.[address] at low suction WBC is 28k on admission currently 9.1 Surgical consult recommending NPO and continue NG tube Two sets of Blood cultures BGTD Monitor albumin' Monitoring of mental status. No antibiotics needed at this point (2) Leukocytosis: Qualifiers: Leukocytosis type: unspecified Qualified Code(s): D72.829 - Elevated white blood cell count, unspecified Code(s): D72.829 - Elevated white blood cell count, unspecified Status: Acute Assessment and Plan: WBC elevated at 28.0 on admission Current WBC is 9.1 Trend WBCs Most likely reactive hold on antibiotics for now No source of infection noted (3) Chronic pain: Code(s): G89.29 - Other chronic pain Status: Acute Assessment and Plan: Continue Morphine Restart home medication as able (4) Acute on chronic kidney failure: Code(s): N17.9 - Acute kidney failure, unspecified; N18.9 - Chronic kidney disease, unspecified Status: Acute Assessment and Plan: Creatinine on admission 2.10 CKD stage 3B Current creatinine is 1.40 Baseline 1.3-1.6 Continue to trend labs Avoid nephrotoxic medications Renal adjust medications as indicated (5) CAD (coronary artery disease): Code(s): I25.10 - Atherosclerotic heart disease of [place] coronary artery without angina pectoris Status: Acute Assessment and Plan: S/P stent placement on 08/17/2023 Plavix on hold currently with NPO status Consider adding full dose lovenox Cardiac monitoring Restart plavix as able Plan Spoke and collaborated with general surgery. Labs and imaging review continue current plan of care Time Spent With Patient Time: 52 minutes Time with patient: Greater than 35 minutes Subjective Date/time seen: 10/15/23 11:34 Interval history: 10/13/23 23:12 Patient is 67-year-old female with multiple abdominal surgeries came to the hospital complaining of lower abdominal pain for the last 2 days associated with some persistent vomiting no fever no chills. Patient's last bowel movement was for 2-3 days ago which was normal. Patient was diagnosed with small-bowel obstruction on his CT scan. Patient on multiple medical problems will continue to monitor. Patient in the emergency room was started on IV hydration and NG suction 10/14/2023 1100 Patient is lying in bed. Patient states she is still having some pain in her belly however she states she is thirsty and hungry. Currently she is draining a lot of brown liquid from her belly. She denies any chest pain, shortness a breath. She is still having nausea and her bowel sounds are not active at this time. 10/15/2023 0945 Patient is still experiencing significant pain in her abdomen. She denies any current chest pain however does have some nausea. NG tube is still sucking out as a thick brown fluid from her abdomen. She did have an obstructive series today. She denies any shortness of breath, fevers, sweats, chills Review of Systems Review of Systems: All systems reviewed & are unremarkable except as noted in HPI and below Exam Narrative: General: well-nourished, ill-appearing 67-year-old female, laying in bed, uncomfortable, NARD Neuro: awake, alert and oriented x4, speech clear, no focal neuro deficits noted HEENMT: normocephalic, atraumatic, EOMI, sclerae anicteric, moist oral mucosa Respiratory: Clear to auscultation bilaterally without crackles, rhonchi
[2023-10-15] MEDS: BENZOCAINE/MENTHOL (*BKC) 18 EA LOZENGE 1 LOZENGE PO (11:38)
[2023-10-15] MEDS: KCL 20 MEQ/0.45% NS 1,000 ML 100 ML IV CONT ×2 (12:11→23:44)
[2023-10-15] MEDS: BISACODYL 10 MG SUPPOSITORY RECTAL (12:12)
--- NOTE | 2023-10-15 13:10 | PM.PNGS ---
Progress Note: A&P Assessment and Plan (1) SBO (small bowel obstruction): Code(s): K56.609 - Unspecified intestinal obstruction, unspecified as to partial versus complete obstruction Status: Acute Assessment and Plan: Patient slowly starting to show some signs of bowel function. Obstructive series still suggests small bowel obstruction. She is still having high NG output. Continue NG tube decompression, bowel rest, and IV fluids Continue to follow with serial abdominal exams, consider SBFT depending on how she is progressing (2) Antiplatelet or antithrombotic long-term use: Code(s): Z79.02 - intermediate (current) use of antithrombotics/antiplatelets Status: Acute Assessment and Plan: Recent cardiac stent in August. Plavix on hold (3) CAD (coronary artery disease): Code(s): I25.10 - Atherosclerotic heart disease of [place] coronary artery without angina pectoris Status: Acute Plan I have discussed the patient's case and plan of care with Dr. Marshall. Subjective Subjective Date/Time Seen: 10/15/23 13:10 Patient reports: no new complaints, flatus (one time yesterday) and no bowel movement Interval history: Patient feels her nausea is better and her abdominal pain has improved. She is feeling less bloated. She passed flatus once yesterday. She had almost 1,000 cc out of the NG tube yesterday and another 1,000 cc out overnight. Dulcolax supp ordered by the Hospitalist this morning. WBC normalized. Exam Const: General: comfortable and no acute distress Orientation/consciousness: patient oriented x3 GI: Inspection: no visible herniation (no obvious recurrent incisional or ventral hernias on exam) and other (abdomen less distended today) GI Palp: Yes Soft to palpation, Yes Tenderness to palpation present (GI) (mild tenderness in the periumbilical area), No Guarding due to palpation present (GI) and No Rebound tenderness present Auscultation: Hypoactive bowel sounds present (better bowel sounds today) Objective Data Vital Signs Vital Signs: Vital Signs - 24 hr 10/14/23 14:57 10/14/23 20:56 10/14/23 21:00 Temperature 97.6 F 98.1 F Pulse Rate 59 L 55 L Respiratory Rate 17 18 Blood Pressure 175/71 H 173/62 H Pulse Oximetry 98 100 100 Oxygen Delivery Nasal Cannula Oxygen Flow Rate 2 10/15/23 06:00 10/15/23 07:51 10/15/23 07:55 Temperature 97.9 F Pulse Rate 66 Respiratory Rate 20 Blood Pressure 191/76 H Pulse Oximetry 99 95 95 Oxygen Delivery Nasal Cannula Nasal Cannula Oxygen Flow Rate 2 2 10/15/23 08:00 Temperature Pulse Rate 66 Respiratory Rate 20 Blood Pressure Pulse Oximetry 95 Oxygen Delivery Nasal Cannula Oxygen Flow Rate 2 Intake/Output Intake/Output: Intake & Output 10/12/23 10/13/23 10/14/23 10/15/23 23:59 23:59 23:59 23:59 Intake Total 1999 999 Output Total 1500 1100 Balance 2000 -500 -1100 Meds/Results Medications: Active Medications Generic Name Dose Route Start Last Admin Trade Name Freq PRN Reason Stop Dose Admin Albuterol 1.25 mg 10/14/23 08:08 Albuterol Sulfate Neb 2.5 Mg/3 Ml Inh NEBULIZE Q6H PRN Shortness Of Breath Or Wheezing Benzocaine 1 lozenge 10/15/23 10:55 10/15/23 11:38 Benzocaine/Menthol (*Bkc) 18 Ea Lozenge PO 1 lozenge PRN PRN Administration Sore Throat Bisacodyl 10 mg 10/16/23 09:00 Bisacodyl 10 Mg Suppository RECTAL QAM PRN Constipation Dextrose 12.5 gm 10/13/23 19:47 Dextrose 50% 25 Gm/50 Ml Syringe IV PUSH PRN PRN Hypoglycemia Protocol Enoxaparin Sodium 30 mg 10/14/23 09:00 10/15/23 08:46 Enoxaparin 30 Mg/0.3 Ml Syringe SUB-Q 30 mg DAILY LORENZO Administration Glucagon 1 mg 10/13/23 19:47 Glucagon For Inj 1 Mg Vial IM PRN PRN Hypoglycemia Protocol Glucose 15 gm 10/13/23 19:47 Glucose Oral Gel 15 Gm Of Glucse In 37.5 Gm Tube PO PRN PRN Hypoglycemia Protocol
[2023-10-15] MEDS: ONDANSETRON INJ 4 MG/2 ML VIAL IV PUSH (20:10)
[2023-10-16] VITALS (11 sets, daily range): BP systolic 142–218; BP diastolic 76–91; PULSE 70–79; RESP 12–18; TEMP 36.5–37.1; O2SAT 93–100
[2023-10-16] MEDS: MORPHINE SULFATE (*CRX) 4 MG/ML INJ IV PUSH ×5 (01:21→21:10)
[2023-10-16] MEDS: ONDANSETRON INJ 4 MG/2 ML VIAL IV PUSH ×3 (01:21→16:44)
[2023-10-16] MEDS: hydrALAZINE HCL 20 MG/ML VIAL 10 MG IV PUSH ×2 (05:51→14:27)
[2023-10-16 05:53] LABS: Basophils Absolute Auto 0.1 K/mm3 (0.0-0.1); Basophils Percent Auto 0.4 % (0.2-1.2); Eosinophils Percent Auto 0.2 % (0-4.4); Hematocrit 42.6 % (37.0-47.0); Hemoglobin 13.5 g/dL (12.0-15.0); Immature Granulocyte Absolute 0.29 K/mm3 (0.00-0.031); Immature Granulocyte Percent A 2.4 % (0-0.5); Lymphocytes Absolute Auto 1.02 K/mm3 (0.9-3.2); Lymphocytes Percent Auto 8.5 % (18.3-44.2); Mean Corpuscular HGB Conc 31.7 g/dl (32-36); Mean Corpuscular Hemoglobin 30.2 pg (26-34); Mean Corpuscular Volume 95.3 fl (80-100); Mean Platelet Volume 11.9 fl (7.4-10.4); Monocytes Absolute Auto 1.7 K/mm3 (0.1-0.6); Monocytes Percent Auto 14.3 % (2.6-8.5); Neutrophils Absolute Auto 8.9 K/mm3 (1.3-6.7); Neutrophils Percent Auto 74.2 % (45.5-73.1); Platelet Count Result 161 k/mm3 (150-375); Red Blood Count 4.47 M/mm3 (4.2-5.4); Red Cell Distribution Width 14.6 % (11.5-14.5)
[2023-10-16 06:05] LABS: Alanine Aminotransferase 15 U/L (6-35); Albumin Level 3.4 g/dL (3.5-5.1); Alkaline Phosphatase 104 U/L (38-126); Anion Gap 9 mmol/L (4-12); Aspartate Amino Transferase 29 U/L (14-36); Bilirubin,Total 0.7 mg/dL (0.2-1.3); Blood Urea Nitrogen 39 mg/dL (7-17); Carbon Dioxide 24 mmol/L (22-30); Chloride 110 mmol/L (98-107); Estimated CRCL calculation 39 ml/min; Estimated Glomerular Filt Rate 50; Glucose 92 mg/dL (65-110); Magnesium 2.2 mg/dL (1.6-2.3); Potassium 3.8 mmol/L (3.4-5.0); Sodium 143 mmol/L (137-145)
[2023-10-16] MEDS: ENOXAPARIN 30 MG/0.3 ML SYRINGE SUB-Q (12:16)
[2023-10-16] MEDS: PANTOPRAZOLE SODIUM IV 40 MG VIAL IV PUSH ×2 (12:16→21:10)
[2023-10-16] MEDS: KCL 20 MEQ/0.45% NS 1,000 ML 100 ML IV CONT ×2 (13:17→23:44)
--- NOTE | 2023-10-16 13:43 | P.PNIM_ITS ---
Progress Note: A&P Assessment and Plan (1) SBO (small bowel obstruction): Code(s): K56.609 - Unspecified intestinal obstruction, unspecified as to partial versus complete obstruction Status: Acute Assessment and Plan: * Abd CT Small bowel obstruction * Abd Xray NG tube present with SBO noted, * Xray from 10/15/2023 still shows SBO * IV fluid resuscitation continued, with KCL in 1/2NS * Lactic acid 1.4 * NG tube in place at low suction, with 700 ml in dark brown liquid * WBC is 28k on admission currently 12.0 * Surgical consult recommending NPO and continue NG tube * Two sets of Blood cultures BGTD * Monitor albumin' Monitoring of mental status. * No antibiotics needed at this point (2) Leukocytosis: Qualifiers: Leukocytosis type: unspecified Qualified Code(s): D72.829 - Elevated white blood cell count, unspecified Code(s): D72.829 - Elevated white blood cell count, unspecified Status: Acute Assessment and Plan: * WBC elevated at 28.0 on admission * Current WBC is 12.0 * Trend WBCs * Most likely reactive * hold on antibiotics for now * No source of infection noted (3) Chronic pain: Code(s): G89.29 - Other chronic pain Status: Acute Assessment and Plan: * Continue Morphine * Restart home medication as able (4) Acute on chronic kidney failure: Code(s): N17.9 - Acute kidney failure, unspecified; N18.9 - Chronic kidney disease, unspecified Status: Acute Assessment and Plan: * Creatinine on admission 2.10 * CKD stage 3B * Current creatinine is 1.10 * Baseline 1.3-1.6 * Continue to trend labs * Avoid nephrotoxic medications * Renal adjust medications as indicated (5) CAD (coronary artery disease): Code(s): I25.10 - Atherosclerotic heart disease of [place] coronary artery without angina pectoris Status: Acute Assessment and Plan: * S/P stent placement on 08/17/2023 * Plavix on hold currently with NPO status * Consider adding full dose lovenox * Cardiac monitoring * Restart plavix as able Plan Spoke and collaborated with general surgery. Labs and imaging review continue current plan of care Time Spent With Patient Time: 51 minutes Time with patient: Greater than 35 minutes Subjective Date/time seen: 10/16/23 13:43 Interval history: 10/13/23 23:12 Patient is 67-year-old female with multiple abdominal surgeries came to the hospital complaining of lower abdominal pain for the last 2 days associated with some persistent vomiting no fever no chills. Patient's last bowel movement was for 2-3 days ago which was normal. Patient was diagnosed with small-bowel obstruction on his CT scan. Patient on multiple medical problems will continue to monitor. Patient in the emergency room was started on IV hydration and NG suction 10/14/2023 1100 Patient is lying in bed. Patient states she is still having some pain in her belly however she states she is thirsty and hungry. Currently she is draining a lot of brown liquid from her belly. She denies any chest pain, shortness a breath. She is still having nausea and her bowel sounds are not active at this time. 10/15/2023 0945 Patient is still experiencing significant pain in her abdomen. She denies any current chest pain however does have some nausea. NG tube is still sucking out as a thick brown fluid from her abdomen. She
--- NOTE | 2023-10-16 13:43 | PM.IMPN ---
Progress Note: A&P Assessment and Plan (1) SBO (small bowel obstruction): Code(s): K56.609 - Unspecified intestinal obstruction, unspecified as to partial versus complete obstruction Status: Acute Assessment and Plan: Abd CT Small bowel obstruction Abd Xray NG tube present with SBO noted, Xray from 10/15/2023 still shows SBO IV fluid resuscitation continued, with KCL in 1/2NS Lactic acid 1.[address] at low suction, with 700 ml in dark brown liquid WBC is 28k on admission currently 12.0 Surgical consult recommending NPO and continue NG tube Two sets of Blood cultures BGTD Monitor albumin' Monitoring of mental status. No antibiotics needed at this point (2) Leukocytosis: Qualifiers: Leukocytosis type: unspecified Qualified Code(s): D72.829 - Elevated white blood cell count, unspecified Code(s): D72.829 - Elevated white blood cell count, unspecified Status: Acute Assessment and Plan: WBC elevated at 28.0 on admission Current WBC is 12.0 Trend WBCs Most likely reactive hold on antibiotics for now No source of infection noted (3) Chronic pain: Code(s): G89.29 - Other chronic pain Status: Acute Assessment and Plan: Continue Morphine Restart home medication as able (4) Acute on chronic kidney failure: Code(s): N17.9 - Acute kidney failure, unspecified; N18.9 - Chronic kidney disease, unspecified Status: Acute Assessment and Plan: Creatinine on admission 2.10 CKD stage 3B Current creatinine is 1.10 Baseline 1.3-1.6 Continue to trend labs Avoid nephrotoxic medications Renal adjust medications as indicated (5) CAD (coronary artery disease): Code(s): I25.10 - Atherosclerotic heart disease of [place] coronary artery without angina pectoris Status: Acute Assessment and Plan: S/P stent placement on 08/17/2023 Plavix on hold currently with NPO status Consider adding full dose lovenox Cardiac monitoring Restart plavix as able Plan Spoke and collaborated with general surgery. Labs and imaging review continue current plan of care Time Spent With Patient Time: 51 minutes Time with patient: Greater than 35 minutes Subjective Date/time seen: 10/16/23 13:43 Interval history: 10/13/23 23:12 Patient is 67-year-old female with multiple abdominal surgeries came to the hospital complaining of lower abdominal pain for the last 2 days associated with some persistent vomiting no fever no chills. Patient's last bowel movement was for 2-3 days ago which was normal. Patient was diagnosed with small-bowel obstruction on his CT scan. Patient on multiple medical problems will continue to monitor. Patient in the emergency room was started on IV hydration and NG suction 10/14/2023 1100 Patient is lying in bed. Patient states she is still having some pain in her belly however she states she is thirsty and hungry. Currently she is draining a lot of brown liquid from her belly. She denies any chest pain, shortness a breath. She is still having nausea and her bowel sounds are not active at this time. 10/15/2023 0945 Patient is still experiencing significant pain in her abdomen. She denies any current chest pain however does have some nausea. NG tube is still sucking out as a thick brown fluid from her abdomen. She did have an obstructive series today. She denies any shortness of breath, fevers, sweats, chills 10/16/2023 1345 Patient is doing ok. She went through a small bowel follow through. However at time of visit patient was actively vomiting. Did turned the patient back on to suction and did drain out 700 mL of brown vomit. Did talk to and collaborate with General surgery. Review of Systems Review of Systems: All systems reviewed & are unremarkable except as noted in HPI and below Exam Narrative: General: w
--- NOTE | 2023-10-16 15:51 | PM.PNGS ---
Progress Note: A&P Assessment and Plan (1) SBO (small bowel obstruction): Code(s): K56.609 - Unspecified intestinal obstruction, unspecified as to partial versus complete obstruction Status: Acute Assessment and Plan: Bowel obstruction persisting based on current imaging. Awaiting final xrays of SBFT. If no significant improvement by tomorrow, will likely need surgical intervention. Discussed attempting laparoscopic to avoid entering through multiple previous surgeries and hernia repair. Will get KUB in AM and determine surgery based on these findings. (2) Antiplatelet or antithrombotic long-term use: Code(s): Z79.02 - longterm (current) use of antithrombotics/antiplatelets Status: Acute (3) Acute on chronic kidney failure: Code(s): N17.9 - Acute kidney failure, unspecified; N18.9 - Chronic kidney disease, unspecified Status: Acute Subjective Subjective Date/Time Seen: 10/16/23 15:51 Interval history: 1 BM yesterday. None today and not passing flatus. SBFT in progress. Patient became very bloated and vomited while NG was clamped. Exam GI: Inspection: distended GI Palp: Yes Soft to palpation, Yes Tenderness to palpation present (GI) (mild periumbilical), No Guarding due to palpation present (GI) and No Rebound tenderness present Objective Data Vital Signs Vital Signs: Vital Signs - 24 hr 10/15/23 19:53 10/15/23 21:18 10/15/23 20:00 Temperature 36.9 C Pulse Rate 58 L Respiratory Rate 20 Blood Pressure 198/77 H 164/83 H Pulse Oximetry 97 97 Oxygen Delivery Nasal Cannula Oxygen Flow Rate 2 10/15/23 21:42 10/16/23 06:39 10/16/23 08:44 Temperature Pulse Rate Respiratory Rate Blood Pressure 146/76 H Pulse Oximetry 96 93 Oxygen Delivery Nasal Cannula Nasal Cannula Oxygen Flow Rate 2 2 10/16/23 14:00 10/16/23 15:31 Temperature 36.6 C Pulse Rate 70 Respiratory Rate 12 Blood Pressure 218/83 H 200/85 H Pulse Oximetry 99 Oxygen Delivery Oxygen Flow Rate Intake/Output Intake/Output: Intake & Output 10/13/23 10/14/23 10/15/23 10/16/23 23:59 23:59 23:59 23:59 Intake Total 2000 1000 1000 1000 Output Total 1500 1500 650 Balance 2000 -500 -500 350 Meds/Results Medications: Active Medications Generic Name Dose Route Start Last Admin Trade Name Freq PRN Reason Stop Dose Admin Albuterol 1.25 mg 10/14/23 08:08 Albuterol Sulfate Neb 2.5 Mg/3 Ml Inh NEBULIZE Q6H PRN Shortness Of Breath Or Wheezing Benzocaine 1 lozenge 10/15/23 10:55 10/15/23 11:38 Benzocaine/Menthol (*Bkc) 18 Ea Lozenge PO 1 lozenge PRN PRN Administration Sore Throat Bisacodyl 10 mg 10/16/23 09:00 Bisacodyl 10 Mg Suppository RECTAL QAM PRN Constipation Dextrose 12.5 gm 10/13/23 19:47 Dextrose 50% 25 Gm/50 Ml Syringe IV PUSH PRN PRN Hypoglycemia Protocol Enoxaparin Sodium 30 mg 10/14/23 09:00 10/16/23 12:16 Enoxaparin 30 Mg/0.3 Ml Syringe SUB-Q 30 mg DAILY LORENZO Administration Glucagon 1 mg 10/13/23 19:47 Glucagon For Inj 1 Mg Vial IM PRN PRN Hypoglycemia Protocol Glucose 15 gm 10/13/23 19:47 Glucose Oral Gel 15 Gm Of Glucse In 37.5 Gm Tube PO PRN PRN Hypoglycemia Protocol Hydralazine HCl 10 mg 10/14/23 08:00 10/16/23 14:27 Hydralazine Hcl 20 Mg/Ml Vial IV PUSH 10 mg Q6H PRN Administration Blood Pressure - High Dextrose 1,000 mls @ 100 mls/hr 10/13/23 19:47 Dextrose 5% 1,000 Ml IVPB PRN PRN Hypoglycemia Protocol Potassium Chloride/Sodium Chloride 1,000 mls @ 100 mls/hr 10/15/23 12:00 10/16/23 13:17 Kcl 20 Meq/0.45% Ns IV CONT 100 mls/hr .Q10H LORENZO Administration Morphine Sulfate 4 mg 10/13/23 19:47 10/16/23 14:26 Morphine Sulfate (*Crx) 4 Mg/Ml Inj IV PUSH 4 mg Q2H PRN Administration Pain Rated 7-10 Ondansetron HCl 4 mg 10/13/23 19:47 10/16/23 12:16 On
[2023-10-16] MEDS: LABETALOL HCL INJ 100 MG/20 ML VIAL 10 MG IV PUSH (16:36)
[2023-10-16] MEDS: LABETALOL HCL INJ 100 MG/20 ML VIAL 20 MG IV PUSH (18:20)
[2023-10-17] VITALS (19 sets, daily range): BP systolic 138–185; BP diastolic 67–99; PULSE 69–106; RESP 14–20; TEMP 36.2–37.1; O2SAT 92–99
[2023-10-17] MEDS: MORPHINE SULFATE (*CRX) 4 MG/ML INJ IV PUSH ×3 (02:11→12:57)
[2023-10-17] MEDS: ONDANSETRON INJ 4 MG/2 ML VIAL IV PUSH (03:49)
[2023-10-17] MEDS: hydrALAZINE HCL 20 MG/ML VIAL 10 MG IV PUSH (05:09)
[2023-10-17 06:46] LABS: Basophils Absolute Auto 0.1 K/mm3 (0.0-0.1); Basophils Percent Auto 0.7 % (0.2-1.2); Eosinophils Percent Auto 0.1 % (0-4.4); Hematocrit 44.8 % (37.0-47.0); Hemoglobin 13.8 g/dL (12.0-15.0); Immature Granulocyte Percent A 2.9 % (0-0.5); Lymphocytes Absolute Auto 1.09 K/mm3 (0.9-3.2); Lymphocytes Percent Auto 7.9 % (18.3-44.2); Mean Corpuscular HGB Conc 30.8 g/dl (32-36); Mean Corpuscular Hemoglobin 29.7 pg (26-34); Mean Corpuscular Volume 96.6 fl (80-100); Mean Platelet Volume 12.3 fl (7.4-10.4); Monocytes Absolute Auto 1.4 K/mm3 (0.1-0.6); Monocytes Percent Auto 10.4 % (2.6-8.5); Neutrophils Absolute Auto 10.8 K/mm3 (1.3-6.7); Platelet Count Result 165 k/mm3 (150-375); Red Blood Count 4.64 M/mm3 (4.2-5.4); Red Cell Distribution Width 14.8 % (11.5-14.5); White Blood Count 13.8 K/mm3 (4.5-10.0)
[2023-10-17 06:54] LABS: Alanine Aminotransferase 16 U/L (6-35); Albumin Level 3.6 g/dL (3.5-5.1); Alkaline Phosphatase 109 U/L (38-126); Anion Gap 11 mmol/L (4-12); Aspartate Amino Transferase 29 U/L (14-36); Bilirubin,Total 0.6 mg/dL (0.2-1.3); Blood Urea Nitrogen 47 mg/dL (7-17); Calcium 8.4 mg/dL (8.4-10.2); Carbon Dioxide 25 mmol/L (22-30); Chloride 107 mmol/L (98-107); Estimated CRCL calculation 33 ml/min; Estimated Glomerular Filt Rate 41; Glucose 107 mg/dL (65-110); Magnesium 2.4 mg/dL (1.6-2.3); Potassium 3.8 mmol/L (3.4-5.0); Sodium 143 mmol/L (137-145)
--- NOTE | 2023-10-17 08:30 | WPDHPUPDATE1 ---
History and Physical Update Update Date/Time: 10/17/23 08:30 History and Physical has been reviewed, including an updated exam of the patient. There are NO changes in the patient's condition. Risks, benefits, and alternatives have been discussed and questions answered. Patient agrees to proceed with procedure.
--- NOTE | 2023-10-17 08:37 | PC.NURSE ---
Pt leaving to go to OR via bed. September, RN updated that IV access was lost. Attempted to obtain access x3 and unsuccessful.
--- NOTE | 2023-10-17 08:59 | WPDANESEPPF ---
Anes - Initial Pre Proc Eval Procedure: Operation Date: 10/17/23 08:00 Proposed Procedures p Diagnostic Laparoscopy Possible Open, Possible Small Bowel Resection - Everett Marshall DO Date/Time: 10/17/23 08:59 Surgeon: Michoacano Poe MD Pre Op Diagnosis: SBO, Leukocytosis Patient Data Age: 67 Gender: F Height: 1.55 m Weight: 66.3 kg Last Vital Signs Temp 37.1 C 10/17/23 05:00 Pulse 73 10/17/23 05:00 Resp 20 10/17/23 05:00 BP 172/83 H 10/17/23 06:10 Pulse Ox 96 10/17/23 05:00 O2 Del Method Nasal Cannula 10/16/23 20:00 O2 Flow Rate 2 10/16/23 20:00 Allergies Allergy/AdvReac Type Severity Reaction Status Date / Time adhesive tape Allergy Mild rash Verified 10/13/23 16:03 tetanus immune globulin Allergy Mild HIVES Verified 10/13/23 16:03 cyclobenzaprine Allergy Unknown TINGLING Verified 10/13/23 16:03 SENSATION IN EXTREMITIES fluoxetine Allergy Unknown Rash,Swelli Verified 10/14/23 08:04 ng tetanus and diphtheria Allergy Unknown Swelling Verified 10/06/23 10:57 toxoids Tetanus Vaccines and Toxoid Allergy Unknown rash Verified 10/06/23 10:57 Home Medications Medication Instructions Recorded Confirmed Type aspirin 81 mg tablet,delayed 81 mg PO DAILY 05/02/21 10/13/23 History release cholecalciferol (vitamin D3) 25 25 mcg PO DAILY #90 caps 12/05/21 10/13/23 Rx mcg (1,000 unit) capsule Trelegy Ellipta 100 mcg-62.5 1 inh inhalation DAILY #60 ea 07/25/22 10/13/23 Rx mcg-25 mcg powder for inhalation (vqjgonkwqht-tgrnygmpc-szuhtcue) sertraline 100 mg tablet 150 mg PO DAILY 08/28/22 10/13/23 History isosorbide mononitrate 60 mg 120 mg PO DAILY 10/29/22 10/13/23 History tablet,extended release 24 hr deutetrabenazine 12 mg tablet 24 mg PO BID 03/02/23 10/13/23 History (Austed[place]) meclizine 25 mg tablet 25 mg PO BID PRN dizziness #60 tabs 03/02/23 10/13/23 Rx docusate calcium 240 mg capsule 240 mg PO DAILY 1 month #30 caps 03/13/23 10/13/23 Rx valsartan 160 mg tablet 320 mg PO DAILY #90 tabs 08/24/23 10/13/23 Rx ondansetron 4 mg disintegrating 4 mg PO Q8H PRN nausea and 09/15/23 10/13/23 Rx tablet vomiting #60 tabs pantoprazole 40 mg tablet,delayed 40 mg PO BID 10/06/23 10/13/23 History release varenicline 0.5 mg (11)-1 mg (42) See Rx Instructions PO PER PKG DIR 10/06/23 10/13/23 Rx tablets in a dose pack ([employer] #53 ea Starting Month Box) albuterol sulfate 1.25 mg/3 mL 1.25 mg inhalation Q6H PRN 10/13/23 10/13/23 History solution for nebulization Shortness Of Breath Or Wheezing albuterol sulfate 90 mcg/actuation 2 puff inhalation Q4H PRN 10/13/23 10/13/23 History aerosol inhaler Shortness Of Breath amantadine HCl 100 mg capsule 100 mg PO QHS 10/13/23 10/13/23 History amlodipine 10 mg tablet 10 mg PO DAILY 10/13/23 10/13/23 History atorvastatin 80 mg tablet 80 mg PO QHS 10/13/23 10/13/23 History carvedilol 25 mg tablet 25 mg PO Q12H 10/13/23 10/13/23 History clopidogrel 75 mg tablet 75 mg PO DAILY 10/13/23 10/13/23 History hydrocodone 10 mg-acetaminophen 1 tablet PO Q6H PRN pain 4-6 10/13/23 10/13/23 History 325 mg tablet topiramate 25 mg tablet 50 mg PO Q12H 10/13/23 10/13/23 History trazodone 100 mg tablet 100 mg PO QHS PRN Sleep 10/13/23 10/13/23 History Laboratory Tests 10/17/23 06:18 WBC 13.8 H K/mm3 (4.5-10.0) RBC 4.64 M/mm3 (4.2-5.4) Hgb 13.8 g/dL (12.0-15.0) Hct 44.8 % (37.0-47.0) MCV 96.6 fl (80-100) MCH 29.7 pg (26-34) MCHC 30.8 L g/dl (32-36) RDW 14.8 H % (11.5-14.5) Plt Count 165 k/mm3 (150-375) MPV 12.3 H fl (7.4-10.4) Immature Gran % (Auto) 2.9 H % (0-0.5) Neut % (Auto) 78.0 H % (45.5-73.1) Lymph % (Auto) 7.9 L % (18.3-44.2) Teller % (Auto) 10.4 H % (2.6-8.5) Eos % (Auto) 0.1 % (0-4.4) Baso % (Auto) 0.7 % (0.2-1.2) Lymph # (Auto) 1.09 K/mm3 (0.9-3.2) Teller # (Auto) 1.4 H K/mm3 (0.1-0.6) Eos # (
[2023-10-17] MEDS: ceFAZolin 2 GM/D5W 50 ML 2 GM/50 ML BAG IVPB (09:05)
[2023-10-17] MEDS: BUPIVACAINE/EPINEPHRINE 0.5% 10 ML VIAL 30 ML INFILTRATE (09:49)
--- NOTE | 2023-10-17 10:33 | SUR.OPER ---
When moving the patient to the surgery bed, the patient's heart monitor was found underneath her body resting on her lower back. There was a red stephany where the patient's monitor had been pressing against her skin. Cristian Maurice RN
[2023-10-17] MEDS: LACTATED RINGERS 1,000 ML 30 ML IV CONT ×2 (11:33)
--- NOTE | 2023-10-17 11:33 | W.PM.PROC2 ---
Procedure Note - Detailed Date of Procedure 10/17/23 Pre-op Diagnosis Small bowel obstruction Post-op Diagnosis Same Procedure Performed 1. Laparoscopic small bowel resection with anastomosis 2. Laparoscopic adhesiolysis with release of small bowel obstruction Surgeon Everett Marshall, DO Anesthesia General and Local (0.5% bupivacaine with epinephrine) Indications This is a 67-year-old woman who presented to the emergency department several days ago with abdominal pain, nausea, and vomiting. She was found to have a evidence of a small-bowel obstruction. NG tube was placed and she was admitted for further treatment. She has never had a small-bowel obstruction in the past. She has had multiple previous abdominal surgeries including multiple hernia repairs, open cholecystectomy, and open hysterectomy. A small-bowel follow-through was obtained yesterday and this showed no sign of resolution of the bowel obstruction. Discussions were made with the patient about treatment options and decision was made to proceed with diagnostic laparoscopy, possible open, possible bowel resection. Findings Diagnostic laparoscopy was performed. The patient was found have significant amount of adhesions in the central abdomen. Many of these adhesions were omentum up to the previous mesh and hernia repairs. There were also some small bowel adhesions that were carefully taken down. There were then several areas of small bowel adhesions to each other and there was 1 loop epiploic appendage from the mid transverse colon that was causing obstruction along the mid ileum. Once I took this down this appeared to relieve the small-bowel obstruction. There were a few more adhesions of small bowel to itself right in this area and there did appear to be 1 small perforation measuring about 2 mm at this location of adhesiolysis. This was right where the bowel obstruction was located at. I chose to resect this small section of ileum and perform a [id number] anastomosis. There was 1 other small serosal injury that was repaired using 3-0 silk seromuscular imbricating sutures. After running the remainder of the bowel there did not appear to be any other significant adhesions. The small bowel segment was sent to the lab for pathology. Description of Procedure Procedure as well as risks, benefits, and alternatives were discussed with the patient. Written consent was obtained and placed in chart prior to procedure. Patient was brought back to surgical suite. She was placed supine on operating table. Time-out was done to confirm patient and procedure. She was then intubated by the anesthesia department. Her abdomen was prepped and draped in sterile fashion using chlorhexidine prep. A 5 mm incision was made in the left upper quadrant and a 5 mm Optiview trocar was advanced through the abdominal layers under direct visualization. Once inside the abdominal cavity, carbon dioxide insufflation was used for pneumoperitoneum. The abdomen was then inspected laparoscopically. There did not appear to be any significant adhesions along the left lateral abdominal wall. A 5 mm incision was made the left lower quadrant and a 5 mm trocar was inserted under direct visualization. Another 5 mm incision was made in the left lateral abdomen and a 5 mm trocar was inserted under direct visualization. Using an atraumatic grasper and curved laparoscopic scissors, I carefully began taking down adhesions. There were omental adhesions to the mid abdominal region were mesh was well incorporated into the abdominal wall. These adhesions were carefully taken down using scissors with electrocautery. In areas where I felt the adhesions were close to loops bowel I took down the adhesions with laparoscopic scissors without cautery. I then continued adhesiolysis until all of the small bowel, transverse colon, and omentum were down from the abdominal wall. Were then some omental adhesions to the small bowel and sigmoid col
[2023-10-17] MEDS: fentaNYL CITRATE INJ (*CRX) 100 MCG/2 ML VIAL 25 MCG IV PUSH (11:59)
--- NOTE | 2023-10-17 12:15 | SUR.PHASEI ---
Simple face mask removed at 1205.
[2023-10-17] MEDS: PANTOPRAZOLE SODIUM IV 40 MG VIAL IV PUSH ×2 (12:58→20:37)
--- NOTE | 2023-10-17 12:58 | PC.NURSE ---
Pt received from PACU via bed. Report received from KIMO Pinto.
--- NOTE | 2023-10-17 17:15 | P.PNIM_ITS ---
Progress Note: A&P Assessment and Plan (1) SBO (small bowel obstruction): Code(s): K56.609 - Unspecified intestinal obstruction, unspecified as to partial versus complete obstruction Status: Acute Assessment and Plan: * Abd CT Small bowel obstruction * NG tube present * Xray from 10/15/2023 still shows SBO * Two sets of Blood cultures BGTD * Monitor albumin' Monitoring of mental status. * No antibiotics needed at this point (2) Leukocytosis: Qualifiers: Leukocytosis type: unspecified Qualified Code(s): D72.829 - Elevated white blood cell count, unspecified Code(s): D72.829 - Elevated white blood cell count, unspecified Status: Acute Assessment and Plan: * WBC elevated at 28.0 on admission * Current WBC is 13.8 * Trend WBCs * Most likely reactive * hold on antibiotics for now * No source of infection noted (3) Chronic pain: Code(s): G89.29 - Other chronic pain Status: Acute Assessment and Plan: * Continue Morphine * Restart home medication as able (4) Acute on chronic kidney failure: Code(s): N17.9 - Acute kidney failure, unspecified; N18.9 - Chronic kidney disease, unspecified Status: Acute Assessment and Plan: * Creatinine on admission 2.10 * CKD stage 3B * Current creatinine is 1.10 * Baseline 1.3-1.6 * Continue to trend labs * Avoid nephrotoxic medications * Renal adjust medications as indicated (5) CAD (coronary artery disease): Code(s): I25.10 - Atherosclerotic heart disease of [place] coronary artery without angina pectoris Status: Acute Assessment and Plan: * S/P stent placement on 08/17/2023 * Plavix on hold currently with NPO status * * Cardiac monitoring * Restart plavix as able Time Spent With Patient Time with patient: 25 - 35 minutes Subjective Date/time seen: 10/17/23 17:15 Interval history: 67-year-old female with multiple abdominal surgeries came to the hospital complaining of lower abdominal pain for the last 2 days associated with some persistent vomiting no fever no chills. Patient's last bowel movement was for 2-3 days ago which was normal. Patient was diagnosed with small-bowel obstruction on his CT scan. Patient on multiple medical problems will continue to monitor. Patient in the emergency room was started on IV hydration and NG suction 10/17/2023 1700 Patient seen this afternoon s/p: Laparoscopic small-bowel resection with anastomosis POD:0 Patient is doing ok. She continues with NG, hooked to low suction, she is eating ice chips her spouse is by the bedside, she has indwelling Donahue with 200 mL yellow urine output she complains of ongoing abdominal tenderness and bloating denies any nausea vomiting at this time. Review of Systems Review of Systems: All systems reviewed & are unremarkable except as noted in HPI and below Exam Narrative: General: ill-appearing 67-year-old female, laying in bed, uncomfortable, NG in place Neuro: awake, alert and oriented x4, speech clear, no focal neuro deficits noted HEENMT: normocephalic, atraumatic, EOMI, sclerae anicteric, dry oral mucosa Respiratory: Clear to auscultation bilaterally without crackles, rhonchi or wheezes, nonlabored breathing Cardio: regular rate, regular rhythm with S1-S2 Abdomen: distended, no bowel diminished, tender to palpation Extremitie
--- NOTE | 2023-10-17 17:15 | PM.IMPN ---
Progress Note: A&P Assessment and Plan (1) SBO (small bowel obstruction): Code(s): K56.609 - Unspecified intestinal obstruction, unspecified as to partial versus complete obstruction Status: Acute Assessment and Plan: Abd CT Small bowel obstruction NG tube present Xray from 10/15/2023 still shows SBO Two sets of Blood cultures BGTD Monitor albumin' Monitoring of mental status. No antibiotics needed at this point (2) Leukocytosis: Qualifiers: Leukocytosis type: unspecified Qualified Code(s): D72.829 - Elevated white blood cell count, unspecified Code(s): D72.829 - Elevated white blood cell count, unspecified Status: Acute Assessment and Plan: WBC elevated at 28.0 on admission Current WBC is 13.8 Trend WBCs Most likely reactive hold on antibiotics for now No source of infection noted (3) Chronic pain: Code(s): G89.29 - Other chronic pain Status: Acute Assessment and Plan: Continue Morphine Restart home medication as able (4) Acute on chronic kidney failure: Code(s): N17.9 - Acute kidney failure, unspecified; N18.9 - Chronic kidney disease, unspecified Status: Acute Assessment and Plan: Creatinine on admission 2.10 CKD stage 3B Current creatinine is 1.10 Baseline 1.3-1.6 Continue to trend labs Avoid nephrotoxic medications Renal adjust medications as indicated (5) CAD (coronary artery disease): Code(s): I25.10 - Atherosclerotic heart disease of [place] coronary artery without angina pectoris Status: Acute Assessment and Plan: S/P stent placement on 08/17/2023 Plavix on hold currently with NPO status Cardiac monitoring Restart plavix as able Time Spent With Patient Time with patient: 25 - 35 minutes Subjective Date/time seen: 10/17/23 17:15 Interval history: 67-year-old female with multiple abdominal surgeries came to the hospital complaining of lower abdominal pain for the last 2 days associated with some persistent vomiting no fever no chills. Patient's last bowel movement was for 2-3 days ago which was normal. Patient was diagnosed with small-bowel obstruction on his CT scan. Patient on multiple medical problems will continue to monitor. Patient in the emergency room was started on IV hydration and NG suction 10/17/2023 1700 Patient seen this afternoon s/p: Laparoscopic small-bowel resection with anastomosis POD:0 Patient is doing ok. She continues with NG, hooked to low suction, she is eating ice chips her spouse is by the bedside, she has indwelling Donahue with 200 mL yellow urine output she complains of ongoing abdominal tenderness and bloating denies any nausea vomiting at this time. Review of Systems Review of Systems: All systems reviewed & are unremarkable except as noted in HPI and below Exam Narrative: General: ill-appearing 67-year-old female, laying in bed, uncomfortable, NG in place Neuro: awake, alert and oriented x4, speech clear, no focal neuro deficits noted HEENMT: normocephalic, atraumatic, EOMI, sclerae anicteric, dry oral mucosa Respiratory: Clear to auscultation bilaterally without crackles, rhonchi or wheezes, nonlabored breathing Cardio: regular rate, regular rhythm with S1-S2 Abdomen: distended, no bowel diminished, tender to palpation Extremities: no edema, erythema, or tenderness to palpation, DP pulses 2+ bilaterally Skin: no rashes or lesions, warm and dry Psych: appropriate mood and affect, judgment and insight intact Objective Data Vital Signs Vital Signs: Vital Signs - 24 hr 10/16/23 17:47 10/16/23 18:20 10/16/23 20:49 Temperature 97.7 F 98.8 F Pulse Rate 79 78 71 Respiratory Rate 12 18 Blood Pressure 203/91 H 142/91 H Pulse Oximetry 100 97 Oxygen Delivery Oxygen Flow Rate 10/16/23 20:00 10/16/23 20:00 10/17/23 00:00 Temperature Pulse
[2023-10-17] MEDS: MORPHINE SULFATE (*CRX) 2 MG/ML INJ IV PUSH ×2 (18:45→20:44)
[2023-10-17] MEDS: KCL 20 MEQ/0.45% NS 1,000 ML 100 ML IV CONT (20:36)
[2023-10-18] VITALS (13 sets, daily range): BP systolic 156–184; BP diastolic 63–90; PULSE 77–97; RESP 16–20; TEMP 36.2–37; O2SAT 93–97
[2023-10-18] MEDS: MORPHINE SULFATE (*CRX) 2 MG/ML INJ IV PUSH ×4 (01:01→20:19)
[2023-10-18 05:58] LABS: Hematocrit 39.8 % (37.0-47.0); Mean Corpuscular HGB Conc 30.2 g/dl (32-36); Mean Corpuscular Hemoglobin 29.6 pg (26-34); Mean Corpuscular Volume 98.3 fl (80-100); Mean Platelet Volume 12.8 fl (7.4-10.4); Platelet Count Result 145 k/mm3 (150-375); Red Blood Count 4.05 M/mm3 (4.2-5.4); Red Cell Distribution Width 15.1 % (11.5-14.5); White Blood Count 13.2 K/mm3 (4.5-10.0)
[2023-10-18 06:09] LABS: Anion Gap 12 mmol/L (4-12); Blood Urea Nitrogen 51 mg/dL (7-17); Carbon Dioxide 22 mmol/L (22-30); Chloride 105 mmol/L (98-107); Estimated CRCL calculation 27 ml/min; Estimated Glomerular Filt Rate 32; Glucose 92 mg/dL (65-110); Sodium 139 mmol/L (137-145)
[2023-10-18] MEDS: KCL 20 MEQ/0.45% NS 1,000 ML 100 ML IV CONT ×2 (07:35→20:17)
[2023-10-18] MEDS: PANTOPRAZOLE SODIUM IV 40 MG VIAL IV PUSH ×2 (08:56→20:19)
[2023-10-18] MEDS: ENOXAPARIN 40 MG/0.4 ML SYRINGE SUB-Q (08:56)
--- NOTE | 2023-10-18 09:55 | WPDANESPN ---
Anes - Prog Note Post-Op Date/Time: 10/18/23 09:55 Cardiovascular status: normal Respiratory status: normal Airway patency: baseline Mental status: baseline Post-Op hydration status: normal Vital Signs: Last Vital Signs Temp 36.8 C 10/18/23 06:28 Pulse 86 10/18/23 06:28 Resp 20 10/18/23 06:28 BP 159/76 H 10/18/23 06:28 Pulse Ox 93 10/18/23 07:39 O2 Del Method Nasal Cannula 10/18/23 07:39 O2 Flow Rate 2 10/18/23 07:39 Pain Score (VAS): 10 I/O: Intake & Output 10/17/23 10/18/23 10/18/23 23:59 07:59 15:59 Intake Total 1000 Output Total 100 1250 Balance -100 -250 Laboratory Tests 10/18/23 05:35 10/18/23 05:35 10/18/23 05:35 WBC 13.2 H RBC 4.05 L Hgb 12.0 Hct 39.8 MCV 98.3 MCH 29.6 MCHC 30.2 L RDW 15.1 H Plt Count 145 L MPV 12.8 H Sodium 139 Potassium 4.0 Chloride 105 Carbon Dioxide 22 Anion Gap 12 BUN 51 H Creatinine 1.60 H Estim Creat Clear Calc 27 Estimated GFR 32 L Glucose 92 Calcium 8.0 L Post-procedural complaints: nausea Patient Feedback: Patient satisfied with anesthetic care.
--- NOTE | 2023-10-18 11:35 | P.PNIM_ITS ---
Progress Note: A&P Assessment and Plan (1) SBO (small bowel obstruction): Code(s): K56.609 - Unspecified intestinal obstruction, unspecified as to partial versus complete obstruction Status: Acute Assessment and Plan: Abd CT Small bowel obstruction. Xray from 10/15/2023 still shows SBO. NG tube was placed, still present * Two sets of Blood cultures BGTD * Monitor albumin' Monitoring of mental status. * No antibiotics needed at this point (2) Leukocytosis: Qualifiers: Leukocytosis type: unspecified Qualified Code(s): D72.829 - Elevated white blood cell count, unspecified Code(s): D72.829 - Elevated white blood cell count, unspecified Status: Acute Assessment and Plan: * WBC elevated at 28.0 on admission * Current WBC is 13.8>12 * Trend WBCs * Most likely reactive * hold on antibiotics for now * No source of infection noted (3) Chronic pain: Code(s): G89.29 - Other chronic pain Status: Acute Assessment and Plan: * Continue Morphine * Restart home medication as able (4) Acute on chronic kidney failure: Code(s): N17.9 - Acute kidney failure, unspecified; N18.9 - Chronic kidney disease, unspecified Status: Acute Assessment and Plan: Baseline creatinine 1.2-1.5. CKD stage 3B * Creatinine on admission 2.10, improved to 1.1 * Current creatinine 1.6 today. * Continue to trend labs * Avoid nephrotoxic medications * Renal adjust medications as indicated (5) CAD (coronary artery disease): Code(s): I25.10 - Atherosclerotic heart disease of [place] coronary artery without angina pectoris Status: Acute Assessment and Plan: * S/P stent placement on 08/17/2023 * Plavix on hold currently with NPO status * Cardiac monitoring * Restart plavix as able Plan Continue to monitor with NG tube Time Spent With Patient Time: 35 minutes Subjective Date/time seen: 10/18/23 11:35 Interval history: No abdominal pain, no nausea this morning. Had 500 mL of NG tube overnight. Hoping to remove NG tube but abdomen still distended, and denies passing gas, no BM. Patient reports distention improved Review of Systems Review of Systems: No nausea or abdominal pain All systems reviewed & are unremarkable except as noted in HPI and below Exam Narrative: General: ill-appearing 67-year-old female, laying in bed, uncomfortable, NG in place Neuro: awake, alert and oriented x4, speech clear, no focal neuro deficits noted HEENMT: normocephalic, atraumatic, EOMI, sclerae anicteric, dry oral mucosa Respiratory: Clear to auscultation bilaterally without crackles, rhonchi or wheezes, nonlabored breathing Cardio: regular rate, regular rhythm with S1-S2 Abdomen: distended, bowel sounds hyperactive, nontender. Extremities: no edema, erythema, or tenderness to palpation, DP pulses 2+ bilaterally Skin: no rashes or lesions, warm and dry Psych: appropriate mood and affect, judgment and insight intact Objective Data Vital Signs Vital Signs: Vital Signs - 24 hr 10/17/23 11:45 10/17/23 12:00 10/17/23 12:15 Temperature Pulse Rate 106 H 103 H 102 H Respiratory Rate 14 16 18 Blood Pressure 176/81 H 166/75 H 154/73 H Pulse Oximetry 98
--- NOTE | 2023-10-18 11:35 | PM.IMPN ---
Progress Note: A&P Assessment and Plan (1) SBO (small bowel obstruction): Code(s): K56.609 - Unspecified intestinal obstruction, unspecified as to partial versus complete obstruction Status: Acute Assessment and Plan: Abd CT Small bowel obstruction. Xray from 10/15/2023 still shows SBO. NG tube was placed, still present Two sets of Blood cultures BGTD Monitor albumin' Monitoring of mental status. No antibiotics needed at this point (2) Leukocytosis: Qualifiers: Leukocytosis type: unspecified Qualified Code(s): D72.829 - Elevated white blood cell count, unspecified Code(s): D72.829 - Elevated white blood cell count, unspecified Status: Acute Assessment and Plan: WBC elevated at 28.0 on admission Current WBC is 13.8>12 Trend WBCs Most likely reactive hold on antibiotics for now No source of infection noted (3) Chronic pain: Code(s): G89.29 - Other chronic pain Status: Acute Assessment and Plan: Continue Morphine Restart home medication as able (4) Acute on chronic kidney failure: Code(s): N17.9 - Acute kidney failure, unspecified; N18.9 - Chronic kidney disease, unspecified Status: Acute Assessment and Plan: Baseline creatinine 1.2-1.5. CKD stage 3B Creatinine on admission 2.10, improved to 1.1 Current creatinine 1.6 today. Continue to trend labs Avoid nephrotoxic medications Renal adjust medications as indicated (5) CAD (coronary artery disease): Code(s): I25.10 - Atherosclerotic heart disease of [place] coronary artery without angina pectoris Status: Acute Assessment and Plan: S/P stent placement on 08/17/2023 Plavix on hold currently with NPO status Cardiac monitoring Restart plavix as able Plan Continue to monitor with NG tube Time Spent With Patient Time: 35 minutes Subjective Date/time seen: 10/18/23 11:35 Interval history: No abdominal pain, no nausea this morning. Had 500 mL of NG tube overnight. Hoping to remove NG tube but abdomen still distended, and denies passing gas, no BM. Patient reports distention improved Review of Systems Review of Systems: No nausea or abdominal pain All systems reviewed & are unremarkable except as noted in HPI and below Exam Narrative: General: ill-appearing 67-year-old female, laying in bed, uncomfortable, NG in place Neuro: awake, alert and oriented x4, speech clear, no focal neuro deficits noted HEENMT: normocephalic, atraumatic, EOMI, sclerae anicteric, dry oral mucosa Respiratory: Clear to auscultation bilaterally without crackles, rhonchi or wheezes, nonlabored breathing Cardio: regular rate, regular rhythm with S1-S2 Abdomen: distended, bowel sounds hyperactive, nontender. Extremities: no edema, erythema, or tenderness to palpation, DP pulses 2+ bilaterally Skin: no rashes or lesions, warm and dry Psych: appropriate mood and affect, judgment and insight intact Objective Data Vital Signs Vital Signs: Vital Signs - 24 hr 10/17/23 11:45 10/17/23 12:00 10/17/23 12:15 Temperature Pulse Rate 106 H 103 H 102 H Respiratory Rate 14 16 18 Blood Pressure 176/81 H 166/75 H 154/73 H Pulse Oximetry 98 99 92 Oxygen Delivery Simple Face Mask Simple Face Mask Room Air Oxygen Flow Rate 8 8 10/17/23 12:30 10/17/23 12:42 10/17/23 13:01 Temperature 98 F 97.6 F Pulse Rate 99 99 106 H Respiratory Rate 16 17 19 Blood Pressure 148/75 H 149/78 H 138/67 Pulse Oximetry 94 96 95 Oxygen Delivery Nasal Cannula Nasal Cannula Oxygen Flow Rate 2 2 10/17/23 13:23 10/17/23 14:10 10/17/23 14:16 Temperature 97.6 F 97.2 F L Pulse Rate 98 91 Respiratory Rate 19 19 Blood Pressure 144/74 H 148/87 H Pulse Oximetry 97 92 97 Oxygen Delivery Nasal Cannula Oxygen Flow Rate 2 10/17/23 18:23 10/17/23 16:00 10/17/23 20:00 Temperature 97.4 F L P
--- NOTE | 2023-10-18 14:02 | PM.PNGS ---
Progress Note: A&P Assessment and Plan (1) SBO (small bowel obstruction): Code(s): K56.609 - Unspecified intestinal obstruction, unspecified as to partial versus complete obstruction Status: Acute Assessment and Plan: Doing well on POD#1. Will remove NG today and allow clear liquids. Increase activity. (2) Antiplatelet or antithrombotic long-term use: Code(s): Z79.02 - shelter (current) use of antithrombotics/antiplatelets Status: Acute (3) Acute on chronic kidney failure: Code(s): N17.9 - Acute kidney failure, unspecified; N18.9 - Chronic kidney disease, unspecified Status: Acute Subjective Subjective Date/Time Seen: 10/18/23 14:02 Interval history: Passing flatus. Pain controlled. No BM yet. Exam GI: Inspection: distended and incision (intact with glue) GI Palp: Yes Soft to palpation, Yes Tenderness to palpation present (GI) (incisional) and No Guarding due to palpation present (GI) Auscultation: normal bowel sounds Objective Data Vital Signs Vital Signs: Vital Signs - 24 hr 10/17/23 14:10 10/17/23 14:16 10/17/23 18:23 Temperature 36.2 C L 36.3 C L Pulse Rate 91 91 Respiratory Rate 19 18 Blood Pressure 148/87 H 153/72 H Pulse Oximetry 92 97 97 Oxygen Delivery Nasal Cannula Oxygen Flow Rate 2 10/17/23 16:00 10/17/23 20:00 10/17/23 20:00 Temperature Pulse Rate 96 91 93 Respiratory Rate 18 Blood Pressure Pulse Oximetry 97 Oxygen Delivery Nasal Cannula Oxygen Flow Rate 2 10/17/23 22:28 10/18/23 00:00 10/18/23 01:29 Temperature 37.1 C 37.0 C Pulse Rate 89 87 97 Respiratory Rate 16 18 Blood Pressure 168/84 H 156/89 H Pulse Oximetry 97 97 Oxygen Delivery Oxygen Flow Rate 10/18/23 04:00 10/18/23 06:28 10/18/23 07:39 Temperature 36.8 C Pulse Rate 83 86 Respiratory Rate 20 Blood Pressure 159/76 H Pulse Oximetry 96 93 Oxygen Delivery Nasal Cannula Oxygen Flow Rate 2 10/18/23 08:57 10/18/23 08:00 10/18/23 11:41 Temperature 36.3 C L Pulse Rate 88 83 Respiratory Rate 18 Blood Pressure 183/90 H Pulse Oximetry 93 97 Oxygen Delivery Nasal Cannula Oxygen Flow Rate 2 10/18/23 12:00 Temperature Pulse Rate 84 Respiratory Rate Blood Pressure Pulse Oximetry Oxygen Delivery Oxygen Flow Rate Intake/Output Intake/Output: Intake & Output 10/15/23 10/16/23 10/17/23 10/18/23 23:59 23:59 23:59 23:59 Intake Total 1000 2000 1270 1000 Output Total 1500 2750 990 1250 Balance -500 -750 280 -250 Meds/Results Medications: Active Medications Generic Name Dose Route Start Last Admin Trade Name Freq PRN Reason Stop Dose Admin Albuterol 1.25 mg 10/14/23 08:08 Albuterol Sulfate Neb 2.5 Mg/3 Ml Inh NEBULIZE Q6H PRN Shortness Of Breath Or Wheezing Benzocaine 1 lozenge 10/15/23 10:55 10/15/23 11:38 Benzocaine/Menthol (*Bkc) 18 Ea Lozenge PO 1 lozenge PRN PRN Administration Sore Throat Bisacodyl 10 mg 10/16/23 09:00 Bisacodyl 10 Mg Suppository RECTAL QAM PRN Constipation Dextrose 12.5 gm 10/13/23 19:47 Dextrose 50% 25 Gm/50 Ml Syringe IV PUSH PRN PRN Hypoglycemia Protocol Enoxaparin Sodium 40 mg 10/17/23 09:00 10/18/23 08:56 Enoxaparin 40 Mg/0.4 Ml Syringe SUB-Q 40 mg DAILY LORENZO Administration Glucagon 1 mg 10/13/23 19:47 Glucagon For Inj 1 Mg Vial IM PRN PRN Hypoglycemia Protocol Glucose 15 gm 10/13/23 19:47 Glucose Oral Gel 15 Gm Of Glucse In 37.5 Gm Tube PO PRN PRN Hypoglycemia Protocol Hydralazine HCl 10 mg 10/14/23 08:00 10/17/23 05:09 Hydralazine Hcl 20 Mg/Ml Vial IV PUSH 10 mg Q6H PRN Administration Blood Pressure - High Dextrose 1,000 mls @ 100 mls/hr 10/13/23 19:47 Dextrose 5% 1,000 Ml IVPB PRN PRN Hypoglycemia Protocol Potassium Chloride/Sodium Chloride 1,000 mls @ 100 mls/hr 10/15/23 12:00
[2023-10-18] MEDS: hydrALAZINE HCL 20 MG/ML VIAL 10 MG IV PUSH (16:22)
[2023-10-18] MEDS: MORPHINE SULFATE (*CRX) 4 MG/ML INJ IV PUSH (23:02)
[2023-10-19] VITALS (11 sets, daily range): BP systolic 147–155; BP diastolic 63–78; PULSE 68–75; RESP 16–18; TEMP 36.2–36.7; O2SAT 95–98
[2023-10-19] MEDS: MORPHINE SULFATE (*CRX) 2 MG/ML INJ IV PUSH ×2 (01:44→09:06)
[2023-10-19 05:36] LABS: Basophils Percent Auto 0.2 % (0.2-1.2); Eosinophils Absolute Auto 0.1 K/mm3 (0-0.3); Eosinophils Percent Auto 1.5 % (0-4.4); Hematocrit 31.6 % (37.0-47.0); Immature Granulocyte Percent A 3.3 % (0-0.5); Lymphocytes Absolute Auto 1.62 K/mm3 (0.9-3.2); Lymphocytes Percent Auto 17.6 % (18.3-44.2); Mean Corpuscular HGB Conc 31.6 g/dl (32-36); Mean Corpuscular Hemoglobin 30.1 pg (26-34); Mean Corpuscular Volume 95.2 fl (80-100); Mean Platelet Volume 12.3 fl (7.4-10.4); Monocytes Absolute Auto 0.8 K/mm3 (0.1-0.6); Monocytes Percent Auto 8.5 % (2.6-8.5); Neutrophils Absolute Auto 6.3 K/mm3 (1.3-6.7); Neutrophils Percent Auto 68.9 % (45.5-73.1); Platelet Count Result 113 k/mm3 (150-375); Red Blood Count 3.32 M/mm3 (4.2-5.4); White Blood Count 9.2 K/mm3 (4.5-10.0)
[2023-10-19 05:51] LABS: Alanine Aminotransferase 10 U/L (6-35); Albumin Level 2.6 g/dL (3.5-5.1); Alkaline Phosphatase 82 U/L (38-126); Anion Gap 7 mmol/L (4-12); Aspartate Amino Transferase 32 U/L (14-36); Bilirubin,Total 0.5 mg/dL (0.2-1.3); Blood Urea Nitrogen 35 mg/dL (7-17); Calcium 7.7 mg/dL (8.4-10.2); Carbon Dioxide 25 mmol/L (22-30); Chloride 106 mmol/L (98-107); Estimated CRCL calculation 36 ml/min; Estimated Glomerular Filt Rate 45; Glucose 86 mg/dL (65-110); Potassium 3.7 mmol/L (3.4-5.0); Sodium 138 mmol/L (137-145)
--- NOTE | 2023-10-19 08:44 | P.PNIM_ITS ---
Progress Note: A&P Assessment and Plan (1) SBO (small bowel obstruction): Code(s): K56.609 - Unspecified intestinal obstruction, unspecified as to partial versus complete obstruction Status: Acute Assessment and Plan: Abd CT Small bowel obstruction. * surgery following - NG removed and diet advanced yesterday * tolerating intake * passing gas and BM last night * Two sets of Blood cultures pending - NGTD * Monitor albumin * Monitoring of mental status. * No antibiotics needed at this point (2) Leukocytosis: Qualifiers: Leukocytosis type: unspecified Qualified Code(s): D72.829 - Elevated white blood cell count, unspecified Code(s): D72.829 - Elevated white blood cell count, unspecified Status: Acute Assessment and Plan: Most likely reactive * WBC elevated at 28.0 on admission * WBC trending down to 9.2 today * No source of infection noted (3) Chronic pain: Code(s): G89.29 - Other chronic pain Status: Chronic Assessment and Plan: * transition to PO analgesics * Plan to Restart home medication today if tolerating PO (4) Acute on chronic kidney failure: Code(s): N17.9 - Acute kidney failure, unspecified; N18.9 - Chronic kidney disease, unspecified Status: Chronic Assessment and Plan: Baseline creatinine 1.2-1.5. CKD stage 3B * Creatinine on admission 2.10, improved to 1.1 * Current creatinine 1.20 today * Continue to trend labs * Avoid nephrotoxic medications * Renal adjust medications as indicated (5) CAD (coronary artery disease): Code(s): I25.10 - Atherosclerotic heart disease of [place] coronary artery without angina pectoris Status: Chronic Assessment and Plan: * S/P stent placement on 08/17/2023 * resume Plavix * Cardiac monitoring Subjective Date/time seen: 10/19/23 08:44 Interval history: Patient lying in bed in no acute distress this morning. Denies abdominal pain, no nausea this morning. NG tube removed yesterday and advanced to liquid diet. Surgery following. She reports she is passing gas and had a bowel movement last night. Will restart Lantus 3 units and pain medication to be transitioned back to oral from IV. BC pending with no growth to date. PT ordered to increase patient mobility while patient. Review of Systems Review of Systems: All systems reviewed & are unremarkable except as noted in HPI and below Exam Narrative: General: ill-appearing female, laying in bed in no distress HEENMT: normocephalic, atraumatic, EOMI, PERRLA Respiratory: Lungs clear to auscultation bilaterally without crackles, rhonchi or wheezes, nonlabored breathing Cardio: RRR with S1-S2 Abdomen: mildly distended, bowel sounds active, nontender to palpation Extremities: no edema, erythema, or tenderness to palpation, DP pulses 2+ bilaterally Skin: no rashes or lesions, warm and dry Neuro: A&O x4, speech clear, no focal neuro deficits Psych: appropriate mood and affect, judgment and insight intact Objective Data Vital Signs Vital Signs: Vital Signs - 24 hr 10/18/23 08:57 10/18/23 11:41 10/18/23 12:00 Temperature 97.4 F L Pulse Rate 83 84 Respiratory Rate 18 Blood Pressure 183/90 H Pulse Oximetry 93 97 Oxygen Delivery Nasal Cannula Oxygen Flow Rate 2
--- NOTE | 2023-10-19 08:44 | PM.IMPN ---
Progress Note: A&P Assessment and Plan (1) SBO (small bowel obstruction): Code(s): K56.609 - Unspecified intestinal obstruction, unspecified as to partial versus complete obstruction Status: Acute Assessment and Plan: Abd CT Small bowel obstruction. surgery following - NG removed and diet advanced yesterday tolerating intake passing gas and BM last night Two sets of Blood cultures pending - NGTD Monitor albumin Monitoring of mental status. No antibiotics needed at this point (2) Leukocytosis: Qualifiers: Leukocytosis type: unspecified Qualified Code(s): D72.829 - Elevated white blood cell count, unspecified Code(s): D72.829 - Elevated white blood cell count, unspecified Status: Acute Assessment and Plan: Most likely reactive WBC elevated at 28.0 on admission WBC trending down to 9.2 today No source of infection noted (3) Chronic pain: Code(s): G89.29 - Other chronic pain Status: Chronic Assessment and Plan: transition to PO analgesics Plan to Restart home medication today if tolerating PO (4) Acute on chronic kidney failure: Code(s): N17.9 - Acute kidney failure, unspecified; N18.9 - Chronic kidney disease, unspecified Status: Chronic Assessment and Plan: Baseline creatinine 1.2-1.5. CKD stage 3B Creatinine on admission 2.10, improved to 1.1 Current creatinine 1.20 today Continue to trend labs Avoid nephrotoxic medications Renal adjust medications as indicated (5) CAD (coronary artery disease): Code(s): I25.10 - Atherosclerotic heart disease of [place] coronary artery without angina pectoris Status: Chronic Assessment and Plan: S/P stent placement on 08/17/2023 resume Plavix Cardiac monitoring Subjective Date/time seen: 10/19/23 08:44 Interval history: Patient lying in bed in no acute distress this morning. Denies abdominal pain, no nausea this morning. NG tube removed yesterday and advanced to liquid diet. Surgery following. She reports she is passing gas and had a bowel movement last night. Will restart Lantus 3 units and pain medication to be transitioned back to oral from IV. BC pending with no growth to date. PT ordered to increase patient mobility while patient. Review of Systems Review of Systems: All systems reviewed & are unremarkable except as noted in HPI and below Exam Narrative: General: ill-appearing female, laying in bed in no distress HEENMT: normocephalic, atraumatic, EOMI, PERRLA Respiratory: Lungs clear to auscultation bilaterally without crackles, rhonchi or wheezes, nonlabored breathing Cardio: RRR with S1-S2 Abdomen: mildly distended, bowel sounds active, nontender to palpation Extremities: no edema, erythema, or tenderness to palpation, DP pulses 2+ bilaterally Skin: no rashes or lesions, warm and dry Neuro: A&O x4, speech clear, no focal neuro deficits Psych: appropriate mood and affect, judgment and insight intact Objective Data Vital Signs Vital Signs: Vital Signs - 24 hr 10/18/23 08:57 10/18/23 11:41 10/18/23 12:00 Temperature 97.4 F L Pulse Rate 83 84 Respiratory Rate 18 Blood Pressure 183/90 H Pulse Oximetry 93 97 Oxygen Delivery Nasal Cannula Oxygen Flow Rate 2 10/18/23 16:00 10/18/23 16:16 10/18/23 20:00 Temperature 97.2 F L Pulse Rate 78 81 81 Respiratory Rate 18 18 Blood Pressure 184/83 H Pulse Oximetry 97 97 Oxygen Delivery Nasal Cannula Oxygen Flow Rate 2 10/18/23 20:00 10/18/23 23:31 10/19/23 00:00 Temperature 97.2 F L Pulse Rate 78 77 73 Respiratory Rate 16 Blood Pressure 175/63 H Pulse Oximetry 95 Oxygen Delivery Oxygen Flow Rate 10/19/23 04:00 10/19/23 06:00 Temperature 97.1 F L Pulse Rate 74 69 Respiratory Rate 18 Blood Pressure 155/63 H Pulse Oximetry 96 Oxygen Delivery Oxygen Flow Rate Intake/Output Intake
[2023-10-19] MEDS: PANTOPRAZOLE SODIUM IV 40 MG VIAL IV PUSH ×2 (09:06→20:38)
[2023-10-19] MEDS: amLODIPine BESYLATE 10 MG TABLET PO (09:06)
[2023-10-19] MEDS: CLOPIDOGREL BISULFATE 75 MG TABLET PO (09:06)
[2023-10-19] MEDS: carvediloL 25 MG TABLET PO ×2 (09:07→20:38)
[2023-10-19] MEDS: ENOXAPARIN 40 MG/0.4 ML SYRINGE SUB-Q (09:07)
--- NOTE | 2023-10-19 09:19 | PM.PNGS ---
Progress Note: A&P Assessment and Plan (1) SBO (small bowel obstruction): Code(s): K56.609 - Unspecified intestinal obstruction, unspecified as to partial versus complete obstruction Status: Acute Assessment and Plan: Doing well on POD#2. Will advance to full liquids. Switch to oral analgesics. Continue to increase activity and ambulating today. (2) Antiplatelet or antithrombotic long-term use: Code(s): Z79.02 - care home (current) use of antithrombotics/antiplatelets Status: Acute Assessment and Plan: Plavix restarted today (3) Acute on chronic kidney failure: Code(s): N17.9 - Acute kidney failure, unspecified; N18.9 - Chronic kidney disease, unspecified Status: Chronic Plan I have discussed the patient's case and plan of care with Dr. Marshall. Subjective Subjective Date/Time Seen: 10/19/23 09:19 Post Op day: 2 (Laparoscopic small bowel resection with anastomosis, Laparoscopic adhesiolysis with release of small bowel obstruction) Patient reports: tolerating liquids well, flatus and bowel movement (x1 yesterday) Interval history: Chart reviewed since last seen. She tolerated clear liquids well. She had a good formed BM yesterday. She denies any nausea or vomiting. She is passing flatus today. She is having pain at her incisions that has been controlled with IV morphine. She has been up to the commode since surgery but has not really been ambulating. I instructed nursing to get the patient up and ambulating today and order PT/OT if necessary. Exam Const: General: comfortable and no acute distress Orientation/consciousness: patient oriented x3 GI: Inspection: non-distended and incision (dry and glue intact) GI Palp: Yes Soft to palpation, Yes Tenderness to palpation present (GI) (expected incisional tenderness and mild periumbilical tenderness), No Guarding due to palpation present (GI), No Hernia present and No Rebound tenderness present Auscultation: normal bowel sounds Objective Data Vital Signs Vital Signs: Vital Signs - 24 hr 10/18/23 11:41 10/18/23 12:00 10/18/23 16:00 Temperature 97.4 F L Pulse Rate 83 84 78 Respiratory Rate 18 Blood Pressure 183/90 H Pulse Oximetry 97 Oxygen Delivery Oxygen Flow Rate 10/18/23 16:16 10/18/23 20:00 10/18/23 20:00 Temperature 97.2 F L Pulse Rate 81 81 78 Respiratory Rate 18 18 Blood Pressure 184/83 H Pulse Oximetry 97 97 Oxygen Delivery Nasal Cannula Oxygen Flow Rate 2 10/18/23 23:31 10/19/23 00:00 10/19/23 04:00 Temperature 97.2 F L Pulse Rate 77 73 74 Respiratory Rate 16 Blood Pressure 175/63 H Pulse Oximetry 95 Oxygen Delivery Oxygen Flow Rate 10/19/23 06:00 10/19/23 09:07 10/19/23 08:00 Temperature 97.1 F L Pulse Rate 69 75 75 Respiratory Rate 18 17 Blood Pressure 155/63 H Pulse Oximetry 96 95 Oxygen Delivery Nasal Cannula Oxygen Flow Rate 2 Intake/Output Intake/Output: Intake & Output 10/16/23 10/17/23 10/18/23 10/19/23 23:59 23:59 23:59 23:59 Intake Total 1999 1270 2510 600 Output Total 2750 990 1250 Balance -474 384 1375 600 Meds/Results Medications: Active Medications Generic Name Dose Route Start Last Admin Trade Name Freq PRN Reason Stop Dose Admin Albuterol 1.25 mg 10/14/23 08:08 Albuterol Sulfate Neb 2.5 Mg/3 Ml Inh NEBULIZE Q6H PRN Shortness Of Breath Or Wheezing Amantadine HCl 100 mg 10/19/23 21:00 Amantadine Hcl 100 Mg Capsule PO QHS [facility] Amlodipine Besylate 10 mg 10/19/23 09:00 10/19/23 09:06 Amlodipine Besylate 10 Mg Tablet PO 10 mg DAILY [facility] Administration Benzocaine 1 lozenge 10/15/23 10:55 10/15/23 11:38 Benzocaine/Menthol (*Bkc) 18 Ea Lozenge PO 1 lozenge PRN PRN Administration Sore Throat Bisacodyl 10 mg 10/16/23 09:00 Bisacodyl 10 Mg Suppository RECTAL QAM PRN Constipation Carvedilol 25 mg 10/19/23 09:00 10/19/23 09:07 Carved
--- NOTE | 2023-10-19 14:29 | PCPTNOTE ---
On 10/19/23, the student, [Shiloh Zheng], provided care and completed [facility] documentation on this patient. I have reviewed the student's documentation and agree with the findings.
[2023-10-19] MEDS: HYDROcodone/acetaminophen (*CRX) 5-325 MG TABLET 1 TAB PO ×2 (16:39→20:39)
[2023-10-19] MEDS: AMANTADINE HCL 100 MG CAPSULE PO (20:38)
--- NOTE | 2023-10-19 21:29 | PHAR ---
PT'S HOME MED (Deutetrabenazine [Austedo] 12 mg tablet) VERIFIED BY PHARMACY
[2023-10-20] VITALS (16 sets, daily range): BP systolic 150–165; BP diastolic 63–77; PULSE 57–69; RESP 18–20; TEMP 36.3–37.1; O2SAT 95–100
[2023-10-20] MEDS: HYDROcodone/acetaminophen (*CRX) 5-325 MG TABLET 1 TAB PO ×5 (00:38→18:12)
[2023-10-20 05:47] LABS: Hematocrit 31.6 % (37.0-47.0); Mean Corpuscular HGB Conc 31.6 g/dl (32-36); Mean Corpuscular Hemoglobin 30.1 pg (26-34); Mean Corpuscular Volume 95.2 fl (80-100); Mean Platelet Volume 12.6 fl (7.4-10.4); Platelet Count Result 120 k/mm3 (150-375); Red Blood Count 3.32 M/mm3 (4.2-5.4); Red Cell Distribution Width 14.6 % (11.5-14.5); White Blood Count 10.6 K/mm3 (4.5-10.0)
[2023-10-20 05:58] LABS: Anion Gap 6 mmol/L (4-12); Blood Urea Nitrogen 28 mg/dL (7-17); Calcium 7.8 mg/dL (8.4-10.2); Carbon Dioxide 24 mmol/L (22-30); Chloride 107 mmol/L (98-107); Estimated CRCL calculation 39 ml/min; Estimated Glomerular Filt Rate 50; Glucose 109 mg/dL (65-110); Potassium 3.4 mmol/L (3.4-5.0); Sodium 137 mmol/L (137-145)
[2023-10-20 06:54] LABS: Albumin Level 2.7 g/dL (3.5-5.1)
[2023-10-20] MEDS: carvediloL 25 MG TABLET PO ×2 (08:22→20:15)
[2023-10-20] MEDS: ENOXAPARIN 40 MG/0.4 ML SYRINGE SUB-Q (08:23)
[2023-10-20] MEDS: amLODIPine BESYLATE 10 MG TABLET PO (08:23)
[2023-10-20] MEDS: CLOPIDOGREL BISULFATE 75 MG TABLET PO (08:23)
[2023-10-20] MEDS: ALBUTEROL SULFATE NEB 2.5 MG/3 ML INH 1.25 MG NEBULIZE ×2 (10:28→18:16)
[2023-10-20] MEDS: PANTOPRAZOLE 40 MG TABLET PO ×2 (10:53→20:16)
--- NOTE | 2023-10-20 11:45 | PM.PNGS ---
Progress Note: A&P Assessment and Plan (1) SBO (small bowel obstruction): Code(s): K56.609 - Unspecified intestinal obstruction, unspecified as to partial versus complete obstruction Status: Acute Assessment and Plan: Advance to regular diet. Increase activity. Possibly home tomorrow if continues to improve. (2) Antiplatelet or antithrombotic long-term use: Code(s): Z79.02 - [employer] (current) use of antithrombotics/antiplatelets Status: Acute Assessment and Plan: Plavix restarted today (3) Acute on chronic kidney failure: Code(s): N17.9 - Acute kidney failure, unspecified; N18.9 - Chronic kidney disease, unspecified Status: Chronic Subjective Subjective Date/Time Seen: 10/20/23 11:45 Interval history: Bowels moving. Tolerating diet. Still having some periumbilical pain and incisional pain, but overall improved. Exam GI: Inspection: non-distended and incision (intact with glue) GI Palp: Yes Soft to palpation and Yes Tenderness to palpation present (GI) (mild periumbilical and incisional) Auscultation: normal bowel sounds Objective Data Vital Signs Vital Signs: Vital Signs - 24 hr 10/19/23 13:40 10/19/23 12:00 10/19/23 16:00 Temperature Pulse Rate 68 71 Respiratory Rate Blood Pressure Pulse Oximetry Oxygen Delivery Room Air Oxygen Flow Rate Fraction of Inspired Oxygen 10/19/23 18:36 10/19/23 20:38 10/19/23 20:00 Temperature 36.7 C Pulse Rate 70 71 71 Respiratory Rate 16 16 Blood Pressure 147/72 H Pulse Oximetry 98 98 Oxygen Delivery Room Air Oxygen Flow Rate Fraction of Inspired Oxygen 10/19/23 20:00 10/19/23 22:00 10/20/23 00:00 Temperature 36.4 C Pulse Rate 70 72 60 Respiratory Rate 18 Blood Pressure 155/78 H Pulse Oximetry 96 Oxygen Delivery Oxygen Flow Rate Fraction of Inspired Oxygen 10/20/23 04:00 10/20/23 07:31 10/20/23 06:00 Temperature 36.7 C Pulse Rate 66 57 L Respiratory Rate 18 Blood Pressure 165/63 H Pulse Oximetry 95 97 Oxygen Delivery Nasal Cannula Oxygen Flow Rate 2 Fraction of Inspired Oxygen 28 10/20/23 08:22 10/20/23 08:25 10/20/23 10:28 Temperature Pulse Rate 63 66 Respiratory Rate 18 Blood Pressure Pulse Oximetry Oxygen Delivery Room Air Oxygen Flow Rate Fraction of Inspired Oxygen 10/20/23 10:33 10/20/23 08:05 Temperature Pulse Rate 68 66 Respiratory Rate 18 Blood Pressure Pulse Oximetry Oxygen Delivery Oxygen Flow Rate Fraction of Inspired Oxygen Intake/Output Intake/Output: Intake & Output 10/17/23 10/18/23 10/19/23 10/20/23 23:59 23:59 23:59 23:59 Intake Total 1270 2510 1580 640 Output Total 990 1250 6 Balance 280 1260 1580 634 Meds/Results Medications: Active Medications Generic Name Dose Route Start Last Admin Trade Name Freq PRN Reason Stop Dose Admin Acetaminophen 650 mg 10/19/23 09:21 Acetaminophen 325 Mg Tablet PO Q6H PRN Mild Pain (1-3) or Fever Hydrocodone Bitart/Acetaminophen 1 tab 10/19/23 09:20 10/20/23 08:43 Hydrocodone/Acetaminophen (*Crx) 5-325 Mg Tablet PO 1 tab Q4H PRN Administration Pain Rated 4-6 Hydrocodone Bitart/Acetaminophen 1 tab 10/19/23 09:20 Hydrocodone/Acetaminophen (*Crx) 10-325 Mg Tablet PO Q6H PRN Pain Rated 7-10 Albuterol 1.25 mg 10/14/23 08:08 10/20/23 10:28 Albuterol Sulfate Neb 2.5 Mg/3 Ml Inh NEBULIZE 1.25 mg Q6H PRN Administration Shortness Of Breath Or Wheezing Amantadine HCl 100 mg 10/19/23 21:00 10/19/23 20:38 Amantadine Hcl 100 Mg Capsule PO 100 mg QHS [facility] Administration Amlodipine Besylate 10 mg 10/19/23 09:00 10/20/23 08:23 Amlodipine Besylate 10 Mg Tablet PO 10 mg DAILY [facility] Administration Benzocaine 1 lozenge 10/15/23 10:55 10/15/23 11:38 Benzocaine/Menthol (*Bkc) 18 Ea Lozenge PO 1 lozenge PRN PRN Administration S
--- NOTE | 2023-10-20 12:42 | P.PNIM_ITS ---
Progress Note: A&P Assessment and Plan (1) SBO (small bowel obstruction): Code(s): K56.609 - Unspecified intestinal obstruction, unspecified as to partial versus complete obstruction Status: Acute Assessment and Plan: Abd CT Small bowel obstruction. * surgery following - NG removed and diet advanced yesterday * tolerating intake * passing gas and BM last night * Two sets of Blood cultures pending - NGTD * Monitor albumin * Monitoring of mental status. * No antibiotics needed at this point 10/20/2023: * General surgery following * Advance to regular diet, patient tolerating well * She is passing gas and had a bowel movement * Blood cultures are showing no growth on final read * If doing well overnight will possibly discharge tomorrow (2) Leukocytosis: Qualifiers: Leukocytosis type: unspecified Qualified Code(s): D72.829 - Elevated white blood cell count, unspecified Code(s): D72.829 - Elevated white blood cell count, unspecified Status: Acute Assessment and Plan: Most likely reactive * WBC elevated at 28.0 on admission * WBC trending down to 9.2 today * No source of infection noted 10/20/2023: * White blood cell count 10.6 today (3) Chronic pain: Code(s): G89.29 - Other chronic pain Status: Chronic Assessment and Plan: * transition to PO analgesics * Plan to Restart home medication today if tolerating PO 10/20/23: * No change to current treatment plan (4) Acute on chronic kidney failure: Code(s): N17.9 - Acute kidney failure, unspecified; N18.9 - Chronic kidney disease, unspecified Status: Chronic Assessment and Plan: Baseline creatinine 1.2-1.5. CKD stage 3B * Creatinine on admission 2.10, improved to 1.1 * Current creatinine 1.20 today * Continue to trend labs * Avoid nephrotoxic medications * Renal adjust medications as indicated 10/20/2023: * Creatinine 1.1 which is below patient's baseline (5) CAD (coronary artery disease): Code(s): I25.10 - Atherosclerotic heart disease of [place] coronary artery without angina pectoris Status: Chronic Assessment and Plan: * S/P stent placement on 08/17/2023 * resume Plavix * Cardiac monitoring 10/20/2023: * No change to current treatment plan Time Spent With Patient Time with patient: 25 - 35 minutes Subjective Date/time seen: 10/20/23 12:42 Interval history: Patient still reports left lower quadrant abdominal pain and not sleeping well last night. She denies any nausea, vomiting, diarrhea. She is tolerating a regular diet. Otherwise has no new complaints today. If doing well overnight she could potentially be discharged in the morning. Review of Systems Review of Systems: All systems reviewed & are unremarkable except as noted in HPI and below Constitutional: Constitutional: Reports as per HPI and Reports no additional constitutional complaints Eyes: Eyes: Reports as per HPI and Reports no additional eye complaints ENT: Reports system reviewed and no additional complaints, except as documented and Reports as per HPI Cardiovascular: Cardiovascular: Reports as per HPI and Reports no additional cardiovascular complaints Respiratory: Respiratory: Reports as per HPI and Reports no additional respiratory complaints Gastrointestinal: Gastrointestinal: Reports as per HPI and Reports no additional gastrointestinal complaints
--- NOTE | 2023-10-20 12:42 | PM.IMPN ---
Progress Note: A&P Assessment and Plan (1) SBO (small bowel obstruction): Code(s): K56.609 - Unspecified intestinal obstruction, unspecified as to partial versus complete obstruction Status: Acute Assessment and Plan: Abd CT Small bowel obstruction. surgery following - NG removed and diet advanced yesterday tolerating intake passing gas and BM last night Two sets of Blood cultures pending - NGTD Monitor albumin Monitoring of mental status. No antibiotics needed at this point 10/20/2023: General surgery following Advance to regular diet, patient tolerating well She is passing gas and had a bowel movement Blood cultures are showing no growth on final read If doing well overnight will possibly discharge tomorrow (2) Leukocytosis: Qualifiers: Leukocytosis type: unspecified Qualified Code(s): D72.829 - Elevated white blood cell count, unspecified Code(s): D72.829 - Elevated white blood cell count, unspecified Status: Acute Assessment and Plan: Most likely reactive WBC elevated at 28.0 on admission WBC trending down to 9.2 today No source of infection noted 10/20/2023: White blood cell count 10.6 today (3) Chronic pain: Code(s): G89.29 - Other chronic pain Status: Chronic Assessment and Plan: transition to PO analgesics Plan to Restart home medication today if tolerating PO 10/20/23: No change to current treatment plan (4) Acute on chronic kidney failure: Code(s): N17.9 - Acute kidney failure, unspecified; N18.9 - Chronic kidney disease, unspecified Status: Chronic Assessment and Plan: Baseline creatinine 1.2-1.5. CKD stage 3B Creatinine on admission 2.10, improved to 1.1 Current creatinine 1.20 today Continue to trend labs Avoid nephrotoxic medications Renal adjust medications as indicated 10/20/2023: Creatinine 1.1 which is below patient's baseline (5) CAD (coronary artery disease): Code(s): I25.10 - Atherosclerotic heart disease of [place] coronary artery without angina pectoris Status: Chronic Assessment and Plan: S/P stent placement on 08/17/2023 resume Plavix Cardiac monitoring 10/20/2023: No change to current treatment plan Time Spent With Patient Time with patient: 25 - 35 minutes Subjective Date/time seen: 10/20/23 12:42 Interval history: Patient still reports left lower quadrant abdominal pain and not sleeping well last night. She denies any nausea, vomiting, diarrhea. She is tolerating a regular diet. Otherwise has no new complaints today. If doing well overnight she could potentially be discharged in the morning. Review of Systems Review of Systems: All systems reviewed & are unremarkable except as noted in HPI and below Constitutional: Constitutional: Reports as per HPI and Reports no additional constitutional complaints Eyes: Eyes: Reports as per HPI and Reports no additional eye complaints ENT: Reports system reviewed and no additional complaints, except as documented and Reports as per HPI Cardiovascular: Cardiovascular: Reports as per HPI and Reports no additional cardiovascular complaints Respiratory: Respiratory: Reports as per HPI and Reports no additional respiratory complaints Gastrointestinal: Gastrointestinal: Reports as per HPI and Reports no additional gastrointestinal complaints Genitourinary: Genitourinary: Reports no additional female genitourinary complaints and Reports as per HPI Musculoskeletal: Musculoskeletal: Reports no additional musculoskeletal complaints and Reports as per HPI Integumentary/Breasts: Skin/Breast: Reports system reviewed and no additional complaints, except as docu and Reports as per HPI Neurologic: Reports system reviewed and no additional complaints, except as documented and Reports as per HPI Psychiatric: Psychiatric: Reports no additional psychiatric complaints and Reports
[2023-10-20] MEDS: FLUTICASONE/UMECLIDIN/VILANTER 100-62.5-25 MCG ELLIPTA 1 PUFF INHALATION (14:28)
[2023-10-20] MEDS: TOPIRAMATE 25 MG TABLET 50 MG PO ×2 (14:42→20:15)
[2023-10-20] MEDS: ISOSORBIDE MONONITRATE 60 MG TAB.ER.24H 120 MG PO (14:42)
[2023-10-20] MEDS: ASPIRIN 81 MG ENTERIC TABLET PO (14:42)
[2023-10-20] MEDS: SERTRALINE HCL 50 MG TABLET 150 MG PO (14:42)
[2023-10-20] MEDS: AMANTADINE HCL 100 MG CAPSULE PO (20:15)
[2023-10-20] MEDS: ATORVASTATIN 40 MG TABLET 80 MG PO (20:16)
[2023-10-20] MEDS: traZODone HCL 50 MG TABLET 100 MG PO (22:03)
[2023-10-20] MEDS: HYDROcodone/acetaminophen (*CRX) 10-325 MG TABLET 1 TAB PO (22:03)
[2023-10-21] VITALS (7 sets, daily range): BP systolic 121; BP diastolic 48; PULSE 65–72; RESP 16–20; TEMP 36.2; O2SAT 92–94
[2023-10-21] MEDS: HYDROcodone/acetaminophen (*CRX) 10-325 MG TABLET 1 TAB PO (04:03)
[2023-10-21] MEDS: ALBUTEROL SULFATE NEB 2.5 MG/3 ML INH INHALATION (07:20)
[2023-10-21] MEDS: FLUTICASONE/UMECLIDIN/VILANTER 100-62.5-25 MCG ELLIPTA 1 PUFF INHALATION (07:32)
[2023-10-21] MEDS: carvediloL 25 MG TABLET PO (08:32)
[2023-10-21] MEDS: ENOXAPARIN 40 MG/0.4 ML SYRINGE SUB-Q (08:32)
[2023-10-21] MEDS: TOPIRAMATE 25 MG TABLET 50 MG PO (08:32)
[2023-10-21] MEDS: amLODIPine BESYLATE 10 MG TABLET PO (08:32)
[2023-10-21] MEDS: CLOPIDOGREL BISULFATE 75 MG TABLET PO (08:32)
[2023-10-21] MEDS: CHOLECALCIFEROL 1,000 UNITS TABLET 1000 UNITS PO (08:32)
[2023-10-21] MEDS: ASPIRIN 81 MG ENTERIC TABLET PO (08:32)
[2023-10-21] MEDS: PANTOPRAZOLE 40 MG TABLET PO (08:32)
[2023-10-21] MEDS: ISOSORBIDE MONONITRATE 60 MG TAB.ER.24H 120 MG PO (08:32)
[2023-10-21] MEDS: SERTRALINE HCL 50 MG TABLET 150 MG PO (08:32)
--- NOTE | 2023-10-21 08:57 | PM.PNGS ---
Progress Note: A&P Assessment and Plan (1) SBO (small bowel obstruction): Code(s): K56.609 - Unspecified intestinal obstruction, unspecified as to partial versus complete obstruction Status: Acute Assessment and Plan: Tolerating regular diet. Okay to discharge home today from surgical standpoint. Discharge instructions discussed with patient. Follow-up in office in 2 weeks. 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 Bowels moving and passing flatus. Nausea at times, but no vomiting. Pain controlled. Exam GI: Inspection: non-distended and incision (Intact with glue) GI Palp: Yes Soft to palpation, No Tenderness to palpation present (GI) and No Guarding due to palpation present (GI) Auscultation: normal bowel sounds Objective Data Vital Signs Vital Signs: Vital Signs - 24 hr 10/20/23 10:28 10/20/23 10:33 10/20/23 14:00 Temperature 37.1 C Pulse Rate 66 68 65 Respiratory Rate 18 18 20 Blood Pressure 159/77 H Pulse Oximetry 100 Oxygen Delivery 10/20/23 12:05 10/20/23 16:05 10/20/23 18:17 Temperature Pulse Rate 61 68 65 Respiratory Rate 18 Blood Pressure Pulse Oximetry Oxygen Delivery 10/20/23 18:25 10/20/23 20:15 10/20/23 20:00 Temperature Pulse Rate 67 68 69 Respiratory Rate 18 Blood Pressure Pulse Oximetry Oxygen Delivery 10/20/23 20:00 10/20/23 22:20 10/21/23 00:00 Temperature 36.3 C L Pulse Rate 68 70 Respiratory Rate 18 Blood Pressure 150/72 H Pulse Oximetry 97 Oxygen Delivery Room Air 10/21/23 04:00 10/21/23 07:20 10/21/23 07:20 Temperature Pulse Rate 71 72 Respiratory Rate 20 Blood Pressure Pulse Oximetry 92 Oxygen Delivery Room Air 10/21/23 07:30 10/21/23 06:00 Temperature 36.2 C L Pulse Rate 67 70 Respiratory Rate 20 16 Blood Pressure 121/48 L Pulse Oximetry 94 Oxygen Delivery Intake/Output Intake/Output: Intake & Output 10/18/23 10/19/23 10/20/23 10/21/23 23:59 23:59 23:59 23:59 Intake Total 2510 1580 1500 440 Output Total 1250 6 Balance 1260 1580 1494 440 Meds/Results Medications: Active Medications Generic Name Dose Route Start Last Admin Trade Name Freq PRN Reason Stop Dose Admin Acetaminophen 650 mg 10/19/23 09:21 Acetaminophen 325 Mg Tablet PO Q6H PRN Mild Pain (1-3) or Fever Hydrocodone Bitart/Acetaminophen 1 tab 10/19/23 09:20 10/20/23 18:12 Hydrocodone/Acetaminophen (*Crx) 5-325 Mg Tablet PO 1 tab Q4H PRN Administration Pain Rated 4-6 Hydrocodone Bitart/Acetaminophen 1 tab 10/19/23 09:20 10/21/23 04:03 Hydrocodone/Acetaminophen (*Crx) 10-325 Mg Tablet PO 1 tab Q6H PRN Administration Pain Rated 7-10 Albuterol 2.5 mg 10/20/23 18:21 Albuterol Sulfate Neb 2.5 Mg/3 Ml Inh INHALATION Q6HRT PRN Wheezing Albuterol 2.5 mg 10/20/23 20:00 10/21/23 07:20 Albuterol Sulfate Neb 2.5 Mg/3 Ml Inh INHALATION 2.5 mg TIDRT LORENZO Administration Amantadine HCl 100 mg 10/19/23 21:00 10/20/23 20:15 Amantadine Hcl 100 Mg Capsule PO 100 mg QHS LORENZO Administration Amlodipine Besylate 10 mg 10/19/23 09:00 10/21/23 08:32 Amlodipine Besylate 10 Mg Tablet PO 10 mg DAILY LORENZO Administration Aspirin 81 mg 10/20/23 14:05 10/21/23 08:32 Aspirin 81 Mg Enteric Tablet PO 81 mg DAILY LORENZO Administration Atorvastatin Calcium 80 mg 10/20/23 21:00 10/20/23 20:16 Atorvastatin 40 Mg Tablet PO 80 mg QHS LORENZO Administration Benzocaine 1 lozenge 10/15/23
--- NOTE | 2023-10-21 10:58 | PCNWS ---
Weekly nutritional screen. Patient is tolerating current diet with adequate intake. No weight loss reported. No nutritional needs at this time.
[2023-10-21] MEDS: ONDANSETRON HCL ODT 4 MG TABLET PO (12:04)
--- NOTE | 2023-10-21 13:09 | PM.DS ---
DS: Admitting Diagnosis Discharge Date 10/21/23 Admitting Diagnosis SBO Leukocytosis Chronic pain DS: Discharge Diagnosis Discharge Diagnosis (1) SBO (small bowel obstruction): Code(s): K56.609 - Unspecified intestinal obstruction, unspecified as to partial versus complete obstruction Status: Acute (2) Leukocytosis: Qualifiers: Leukocytosis type: unspecified Qualified Code(s): D72.829 - Elevated white blood cell count, unspecified Code(s): D72.829 - Elevated white blood cell count, unspecified Status: Acute (3) Chronic pain: Code(s): G89.29 - Other chronic pain Status: Chronic (4) Acute on chronic kidney failure: Code(s): N17.9 - Acute kidney failure, unspecified; N18.9 - Chronic kidney disease, unspecified Status: Chronic (5) CAD (coronary artery disease): Code(s): I25.10 - Atherosclerotic heart disease of [place] coronary artery without angina pectoris Status: Chronic DS: Summary Hospital Course Reason for hospitalization: Leukocytosis Chronic pain Small-bowel obstruction Hospital Course: This is a 67-year-old female who presented to the hospital on 10/13/2023 with nausea, vomiting for prior to days without having a bowel movement in the last 2-3 days. General surgery was consulted and took patient to the OR on 10/16 for a laparoscopic small-bowel resection with anastomosis and lysis of adhesions. Patient had NG tube in place immediately postop and was removed on postop day 1. She was placed on clear liquid diet and slowly advanced to a regular diet over the next few days. Today she denies any new complaints. She is ready to go home. Her vital signs are stable, she is afebrile, she is on room air. General surgery has given the okay to discharge when ready. We will go ahead and discharge her with plans to see General surgery back in 2 weeks. Final diagnosis: SBO Status at Discharge Cognitive/behavioral status at discharge: Alert and oriented x3 Functional status at discharge: independent ambulation Overall status at discharge: patient is progressing back to baseline Time Spent with Patient Time attestation: Total time spent providing and/or coordinating discharge services: Time spent: Greater than 30 minutes Exam Narrative: General: In no acute distress, malnourished Cardiac: Normal S1 and S2. RRR, No murmur, gallops or friction rubs, peripheral pulses intact. Respiratory: Lungs clear to auscultation, no adventitious lung sounds, currently on room air Gastrointestinal: soft, non-distended, tenderness in left lower quadrant, hypo active bowel sounds. Reports some nausea, no vomiting Neuro: Alert and oriented x4 DS: Data Data Completed and Pending Completed studies during hospitalization: Pending at discharge 10/17/23 10:33 Surgical [PTH] Routine Pending studies at discharge: KUB Small bowel x ray Procedures/Treatments: Laparoscopic small bowel resection with anastomosis. Discharge Plan Discharge Attending physician on discharge: Loren Luther Consulting providers: Everett Marshall; Brianne Edmondson Discharging Clinician: Brianne Edmondson Anticipated Discharge Date/Time: 10/21/23 13:07 Patient Disposition: Home, Self-Care Activity: may shower and other - see discharge instructions Diet: regular Wound Care Instructions: other - see discharge instructions Discharge Instructions: Postoperative instructions May shower, no bathing or soaking underwater for [address] in 1-2 days if pain minimal No lifting greater than 10 lb for the next 2 weeks Call office for increasing pain, bloating, fevers, or other surgery related problems Patient Instructions: Antibiotic Form, Clopidogrel (By mouth) Patient Language: Uzbek Stand Alone Forms: General Discharge Information Follow-up/Referrals: Everett Marshall DO [Physician] - 2 Weeks Discharge Medications: New pantoprazole 40
== END 2023-10-21 13:08 | disposition home or self-care (01) | DRG 330 ==
LOC: ANHED 18:31 → ANH3MEDSUR 21:20 → ANH3MED 21:33
PROVIDERS: Emergency Medicine; Nurse Practitioner; Nurse Practitioner Acute Care; Nurse Practitioner Family; Surgery; Admitting Provider Internal Medicine; Emergency Provider Physician Assistant; PCP Family Medicine; Visit Provider Nurse Practitioner Acute Care
PROC: 0DB84ZZ Excision of Small Intestine, Percutaneous Endoscopic Approach (ICD-10-PCS; CPT 49320; principal; 2023-10-17 08:00)
DX: K56.50 Intestinal adhesions [bands], unspecified as to partial versus complete obstruction (principal); K91.71 Accidental puncture and laceration of a digestive system organ or structure during a digestive system procedure; N17.9 Acute kidney failure, unspecified; I25.10 Atherosclerotic heart disease of native coronary artery without angina pectoris; I12.9 Hypertensive chronic kidney disease with stage 1 through stage 4 chronic kidney disease, or unspecified chronic kidney disease; N18.32 Chronic kidney disease, stage 3b; J44.9 Chronic obstructive pulmonary disease, unspecified; E78.5 Hyperlipidemia, unspecified; K21.9 Gastro-esophageal reflux disease without esophagitis; K31.84 Gastroparesis; M06.042 Rheumatoid arthritis without rheumatoid factor, left hand; M06.041 Rheumatoid arthritis without rheumatoid factor, right hand; M51.36 Other intervertebral disc degeneration, lumbar region; G20.A1 Parkinson's disease without dyskinesia, without mention of fluctuations; G24.01 Drug induced subacute dyskinesia; G47.33 Obstructive sleep apnea (adult) (pediatric); F17.210 Nicotine dependence, cigarettes, uncomplicated; Z85.3 Personal history of malignant neoplasm of breast; Z79.02 Long term (current) use of antithrombotics/antiplatelets; Z79.82 Long term (current) use of aspirin; Z86.010 Personal history of colon polyps; Z95.5 Presence of coronary angioplasty implant and graft
CPT/HCPCS: 36415; 74018; 74019; 74176; 74250; 80048; 80053; 81001; 82040; 83605; 83690; 83735; 85025; 85027; 87040; 88307; 94640; 96361; 96374; 96375; 96376; 97110; 97161; 97530; 99285; A9270; G0378; J0330; J0360; J0690; J1100; J1170; J1200; J1650; J2250; J2270; J2405; J2470; J2704; J3010; J7030; J7120

== ENCOUNTER 2023-11-17 14:12 | Inpatient (IN) | payer MEDICARE, MEDICAID, SELFPAY ==
--- NOTE | ~2023-11-17 | XR_ITS ---
3 VIEWS THORACIC SPINE Ordering provider: Brianne Edmondson APRN History: . back pain . Comparison: March 01, 2019 FINDINGS: VERTEBRAL BODIES: Normal height and alignment. No visible fracture or subluxation. Degenerative quinn es of the spine. DISK SPACES: Narrowing at multiple levels. SOFT TISSUES: Normal. IMPRESSION: No acute osseous abnormality of the thoracic spine. Reviewed, dictated and finalized at location A.
--- NOTE | ~2023-11-17 | XR_ITS ---
3 VIEWS LUMBAR SPINE Ordering provider: Brianne Edmondson APRN History: . back pain . Comparison: August 01, 2020 FINDINGS: VERTEBRAL BODIES:Levoscoliosis. No visible fracture or subluxation. DISK SPACES: Normal. Multilevel facet joint disease. SOFT TISSUES: Aortic calcification. Bilateral sacroiliitis. Left hip osteoarthritic changes . IMPRESSION: No acute osseous abnormality lumbar spine. Reviewed, dictated and finalized at location A.
--- NOTE | ~2023-11-17 | CT_ITS ---
EXAMINATION: CT abdomen pelvis w con DATE: 11/17/2023 15:28 INDICATION: abdomen wall mass/abscess hx bowel obstruction TECHNIQUE: Computed tomography (CT) of the abdomen and pelvis was performed with 100 mL Omnipaque-350 intravenous contrast. Automated exposure control and iterative reconstruction technique were employe d. The dose-length product was 525.47 mGy-cm. COMPARISON: 10/13/2023, 07/19/2021. FINDINGS: Lower thorax: Bilateral breast implants. Liver: 4.2 cm heterogeneous lesion in the left lobe, previously representing a 12.4 cm multiloculated cystic lesion, likely represent post therapeutic change. Multiple additional simple cysts or hemangi omas present in the liver. Enlarged. Biliary/Gallbladder: Gallbladder is absent. Mild intra and extrahepatic duct dilation likely secondar y to cholecystectomy. Pancreas: Moderate atrophy. Parenchymal calcification. Spleen: Normal. Adrenals: Tiny left adrenal adenoma. Kidneys: Bilateral cortical thinning and scarring. Multiple nonobstructing bilateral calculi. Multipl e bilateral simple cysts and subcentimeter hypodensities that are too small to catheterize but most l ikely represent cysts. Exophytic hyperdense lower pole hemorrhagic cyst GI tract: Mild distal esophageal and gastric wall edema. Uncomplicated lower abdominal small bowel an astomosis. 4.5 x 7.2 x 5.6 cm rim-enhancing fluid collection in the midline upper abdomen which exten ds through the entire abdominal wall and into the peritoneal cavity, where the small anterior periton eal component extends cephalad along the anterior surface of the gastric fundus. No small or large irwin wel dilation. Normal appendix. Diverticulosis without diverticulitis. Mesentery/Peritoneum: No ascites, mass, or free air. Retroperitoneum: No mass. Atherosclerotic abdominal aortic and/or arterial calcifications. Pelvis: Empty urinary bladder. Absent uterus. Ovaries not confidently visualized. Soft Tissues: 4.5 x 7.2 x 5.6 cm rim-enhancing fluid collection in the midline upper abdomen which ex tends through the entire abdominal wall and into the peritoneal cavity, where the small anterior jaida toneal component extends cephalad along the anterior surface of the gastric fundus. Bones: No acute osseous finding. IMPRESSION: Mild esophagitis/gastritis. 5.6 cm upper midline abdominal subcutaneous abscess which extends through the anterior abdominal wall along the anterior surface the gastric fundus. Reviewed, dictated and finalized at location K. IMPRESSION: Mild esophagitis/gastritis. 5.6 cm upper midline abdominal subcutaneous abscess which extends through the a nterior abdominal wall along the anterior surface the gastric fundus.
[2023-11-17 14:18] VITALS: BP 115/62; PULSE 60; RESP 18; TEMP 36.6; O2SAT 100
--- NOTE | 2023-11-17 14:42 | ED.ABDPAIN ---
HPI - Abdominal Pain General Chief Complaint: Abdominal Pain Stated Complaint: bowel surgery in October, pain/swelling Time Seen by Provider: 11/17/23 14:43 Focused HPI: Yasmine is a 68-year-old female patient presenting to the emergency room today with complaints of a pain in the left upper quadrant of the abdomen wall with a red knot area- possible abscess x4 days. She reports she had bowel surgery for a bowel obstruction 1 month ago. She denies any fever, chills, body aches, nausea, vomiting, or diarrhea. GENERAL: Well-appearing, well-nourished, and in no acute distress. HEAD: Normocephalic, atraumatic. CHEST: Clear to auscultation. No respiratory distress. HEART: Regular rate and rhythm. NEURO: Alert and oriented x3. Patient screened in triage and initial orders placed. Additional care and disposition to be based upon diagnostic testing and treatment. Source: patient Mode of arrival: ambulatory Limitations: no limitations Related Data Home Medications Medication Instructions Recorded Confirmed aspirin 81 mg tablet,delayed 81 mg PO DAILY 05/02/21 11/17/23 release sertraline 100 mg tablet 150 mg PO DAILY 08/28/22 11/17/23 isosorbide mononitrate 60 mg 120 mg PO DAILY 10/29/22 11/17/23 tablet,extended release 24 hr deutetrabenazine 12 mg tablet 24 mg PO BID 03/02/23 11/17/23 (Austedo) albuterol sulfate 1.25 mg/3 mL 1.25 mg inhalation Q6H PRN 10/13/23 11/17/23 solution for nebulization Shortness Of Breath Or Wheezing albuterol sulfate 90 mcg/actuation 2 puff inhalation Q4H PRN 10/13/23 11/17/23 aerosol inhaler Shortness Of Breath amantadine HCl 100 mg capsule 100 mg PO QHS 10/13/23 11/17/23 amlodipine 10 mg tablet 10 mg PO DAILY 10/13/23 11/17/23 atorvastatin 80 mg tablet 80 mg PO QHS 10/13/23 11/17/23 carvedilol 25 mg tablet 25 mg PO Q12H 10/13/23 11/17/23 clopidogrel 75 mg tablet 75 mg PO DAILY 10/13/23 11/17/23 topiramate 25 mg tablet 50 mg PO Q12H 10/13/23 11/17/23 trazodone 100 mg tablet 100 mg PO QHS PRN Sleep 10/13/23 11/17/23 nitroglycerin 0.4 mg BYMOUTH PRN PRN Angina 11/17/23 11/17/23 Allergies Allergy/AdvReac Type Severity Reaction Status Date / Time adhesive tape Allergy Mild rash Verified 11/05/23 14:07 tetanus immune globulin Allergy Mild HIVES Verified 11/05/23 14:07 cyclobenzaprine Allergy Unknown TINGLING Verified 11/05/23 14:07 SENSATION IN EXTREMITIES fluoxetine Allergy Unknown Rash,Swelli Verified 11/05/23 14:07 ng tetanus and diphtheria Allergy Unknown Swelling Verified 11/05/23 14:07 toxoids Tetanus Vaccines and Toxoid Allergy Unknown rash Verified 11/05/23 14:07 [facility] Past Medical History Medical History (Updated 11/17/23 @ 23:45 by Cathy Pop PA-C) Adenomatous colon polyp Bipolar disorder, unspecified Cancer of left breast Chronic kidney disease, stage 3 (moderate) Chronic obstructive pulmonary disease, unspecified Constipation Coronary artery disease Coronary artery disease Degenerative cervical disc Essential (primary) hypertension Gastritis Gastroparesis Inflammatory arthritis Lumbar degenerative disc disease Menieres disease Obstructive sleep apnea on CPAP On home O2 at night Parkinson disease Seronegative rheumatoid arthritis of both hands Tardive dyskinesia Surgical History Surgical History History of bowel resection 10/17/23 Laparoscopic small bowel resection with anastomosis. Laparoscopic adhesiolysis with release of small bowel obstruction History of breast surgery History of cholecystectomy History of coronary artery stent placement stent placed 07/2023 History of hernia surgery History of hysterectomy History of liver biopsy Status post mastectomy Family History Family History Sibling Family history of malignant neoplasm Family history of diabetes mellitus in first degree relative Family history of isabel
[2023-11-17 15:05] LABS: Basophils Absolute Auto 0.1 K/mm3 (0.0-0.1); Basophils Percent Auto 0.3 % (0.2-1.2); Eosinophils Absolute Auto 0.3 K/mm3 (0-0.3); Eosinophils Percent Auto 1.6 % (0-4.4); Hematocrit 30.8 % (37.0-47.0); Hemoglobin 9.6 g/dL (12.0-15.0); Immature Granulocyte Absolute 0.15 K/mm3 (0.00-0.031); Immature Granulocyte Percent A 0.8 % (0-0.5); Lymphocytes Absolute Auto 1.63 K/mm3 (0.9-3.2); Lymphocytes Percent Auto 9.1 % (18.3-44.2); Mean Corpuscular HGB Conc 31.2 g/dl (32-36); Mean Corpuscular Hemoglobin 29.3 pg (26-34); Mean Corpuscular Volume 93.9 fl (80-100); Mean Platelet Volume 10.9 fl (7.4-10.4); Monocytes Percent Auto 5.8 % (2.6-8.5); Neutrophils Absolute Auto 14.7 K/mm3 (1.3-6.7); Neutrophils Percent Auto 82.4 % (45.5-73.1); Platelet Count Result 298 k/mm3 (150-375); Red Blood Count 3.28 M/mm3 (4.2-5.4); Red Cell Distribution Width 15.6 % (11.5-14.5); White Blood Count 17.8 K/mm3 (4.5-10.0)
[2023-11-17 15:11] LABS: Alanine Aminotransferase 32 U/L (6-35); Albumin Level 3.2 g/dL (3.5-5.1); Alkaline Phosphatase 108 U/L (38-126); Anion Gap 8 mmol/L (4-12); Aspartate Amino Transferase 37 U/L (14-36); Bilirubin,Total 0.2 mg/dL (0.2-1.3); Blood Urea Nitrogen 26 mg/dL (7-17); Calcium 8.3 mg/dL (8.4-10.2); Carbon Dioxide 29 mmol/L (22-30); Chloride 102 mmol/L (98-107); Estimated CRCL calculation 32 ml/min; Estimated Glomerular Filt Rate 38; Glucose 173 mg/dL (65-110); Lipase 46 U/L (23-300); Potassium 3.8 mmol/L (3.4-5.0); Sodium 139 mmol/L (137-145)
[2023-11-17 15:51] LABS: Add Urine Microscopic? YES; Appearance Urine Clear (Clear); Bacteria Urine None Seen /hpf; Bilirubin Urine Negative (Negative); Blood Urine Negative (Negative); Color Urine Dark Yellow (Yellow); Glucose Urine UA Negative (Negative); Ketones Urine Trace mg/dL (Negative); Leukocyte Esterase Ur Negative LEU/UL (Negative); Need Manual Microscopic Reviewed; Nitrate Urine Negative (Negative); Protein Urine 1+ mg/dL (Negative); RBC Urine 0-2 /hpf (0-2); Specific Grav Ur 1.019 (1.001-1.035); Squamous Epithelial Cell Urine Few /hpf (Few); Urobilinogen Urine 0.2 mg/dL (<2.0); WBC Urine 0-5 /hpf (0-3); pH Urine 5.5 (5.0-9.0)
[2023-11-17 16:25] VITALS: BP 158/82; PULSE 51; RESP 12; O2SAT 99
--- NOTE | 2023-11-17 16:49 | ED.ABDPAIN ---
HPI - Abdominal Pain General Chief Complaint: Abdominal Pain Stated Complaint: bowel surgery in October, abd pain/swelling Time Seen by Provider: 11/17/23 14:43 Source: patient Mode of arrival: ambulatory Limitations: no limitations History of Present Illness HPI narrative: 68 YEARS OLD WHITE FEMALE CAME FROM HOME BY PRIVATE CAR COMPLAINING OF A LUMP AT THE LEFT ABDOMEN SINCE HAD SMALL BOWEL OBSTRUCTION SURGERY LAST MONTH. WAS SEEN BY HER SURGEON November, PATIENT IS TELLING ME THAT THE LUMP IS GETTING BIGGER AND MORE RED THAN BEFORE. SHE DENIES ANY FEVER, NAUSEA, VOMITING. SHE REPORTS INTERMITTENT CHILLS. Related Data Home Medications Medication Instructions Recorded Confirmed aspirin 81 mg tablet,delayed 81 mg PO DAILY 05/02/21 11/09/23 release sertraline 100 mg tablet 150 mg PO DAILY 08/28/22 11/09/23 isosorbide mononitrate 60 mg 120 mg PO DAILY 10/29/22 11/09/23 tablet,extended release 24 hr deutetrabenazine 12 mg tablet 24 mg PO BID 03/02/23 11/09/23 (Austedo) pantoprazole 40 mg tablet,delayed 40 mg PO BID 10/06/23 11/09/23 release albuterol sulfate 1.25 mg/3 mL 1.25 mg inhalation Q6H PRN 10/13/23 11/09/23 solution for nebulization Shortness Of Breath Or Wheezing albuterol sulfate 90 mcg/actuation 2 puff inhalation Q4H PRN 10/13/23 11/09/23 aerosol inhaler Shortness Of Breath amantadine HCl 100 mg capsule 100 mg PO QHS 10/13/23 11/09/23 amlodipine 10 mg tablet 10 mg PO DAILY 10/13/23 11/09/23 atorvastatin 80 mg tablet 80 mg PO QHS 10/13/23 11/09/23 carvedilol 25 mg tablet 25 mg PO Q12H 10/13/23 11/09/23 clopidogrel 75 mg tablet 75 mg PO DAILY 10/13/23 11/09/23 topiramate 25 mg tablet 50 mg PO Q12H 10/13/23 11/09/23 trazodone 100 mg tablet 100 mg PO QHS PRN Sleep 10/13/23 11/09/23 Allergies Allergy/AdvReac Type Severity Reaction Status Date / Time adhesive tape Allergy Mild rash Verified 11/05/23 14:07 tetanus immune globulin Allergy Mild HIVES Verified 11/05/23 14:07 cyclobenzaprine Allergy Unknown TINGLING Verified 11/05/23 14:07 SENSATION IN EXTREMITIES fluoxetine Allergy Unknown Rash,Swelli Verified 11/05/23 14:07 ng tetanus and diphtheria Allergy Unknown Swelling Verified 11/05/23 14:07 toxoids Tetanus Vaccines and Toxoid Allergy Unknown rash Verified 11/05/23 14:07 Review of Systems Review of Systems: All systems reviewed & are unremarkable except as noted in HPI and below PMFSH Past Medical History Medical History Abnormal CT scan Adenomatous colon polyp Bilateral hand pain Bipolar disorder, unspecified Blockage of coronary artery of heart Chronic kidney disease, stage 3 (moderate) Chronic obstructive pulmonary disease, unspecified Constipation Degenerative cervical disc Essential (primary) hypertension Gastritis Gastroparesis HX: breast cancer Inflammatory arthritis Labral tear of long head of right biceps tendon Liver cyst Liver mass Lumbar degenerative disc disease Marijuana use Menieres disease Nausea & vomiting On home O2 at night BERTA (obstructive sleep apnea) Parkinson disease Right shoulder pain Screening for colon cancer Screening for osteoporosis Seronegative rheumatoid arthritis of both hands Tardive dyskinesia Surgical History Surgical History History of bowel resection 10/17/23 Laparoscopic small bowel resection with anastomosis. Laparoscopic adhesiolysis with release of small bowel obstruction History of breast surgery History of cholecystectomy History of coronary artery stent placement stent placed 07/2023 History of hernia surgery History of hysterectomy History of liver biopsy Status post mastectomy Family History Family History Sibling Family history of malignant neoplasm Family history of diabetes mellitus in first degree relative Family history of lupus erythematosus Fa
[2023-11-17] MEDS: ONDANSETRON INJ 4 MG/2 ML VIAL IV PUSH (17:04)
[2023-11-17] MEDS: HYDROmorphone HCL INJ (*CRX) 1 MG/ML SYR 0.5 MG IV PUSH ×2 (17:04→22:29)
[2023-11-17] MEDS: SODIUM CHLORIDE 0.9% IV 1,000 ML 999 ML IV CONT (17:05)
[2023-11-17 17:16] VITALS: BP 151/81; PULSE 54; RESP 13; O2SAT 95
--- NOTE | 2023-11-17 17:57 | PC.NURSE ---
EDP Dr. Mendez reports no blood cultures needed
[2023-11-17] MEDS: PIPERACILLN/TAZ 3.375GM/NS50ML 3.375 GM/50 ML BAG IVPB (18:07)
[2023-11-17 18:33] VITALS: BMI 30.4
--- NOTE | 2023-11-17 18:39 | ADMGEN ---
This patient, Eduarda Wall, was admitted to [facility] Surg Room 301-01. Patient/family oriented to hospital policies and general routines including ID bracelet, bed and alarms, visiting hours, pain management, procedures, bathroom and other care routines, personal items, smoking policy, room service/diet, and visiting hours. Information on how to activate the Rapid Response Team has been discussed. Patient/Family are encouraged to report perceived risks to care and to ask questions if they do not understand what they are told or what they should do.
--- NOTE | 2023-11-17 19:46 | PHAR ---
PT'S HOME MED AUSTEDO 12 MG TABLETS VERIFIED BY PHARMACY
--- NOTE | 2023-11-17 21:00 | PM.IMHP ---
H&P: HPI History of Present Illness Date/Time: 11/17/23 21:00 Chief Complaint: Postoperative wound. Narrative: This is a 68-year-old female with history of Parkinson's, migraine headaches, coronary artery disease, hypertension, hyperlipidemia, chronic obstructive pulmonary disease, obstructive sleep apnea on CPAP, peptic ulcer, chronic kidney disease, anxiety, depression, tardive dyskinesia, and breast cancer who presented to the emergency department for evaluation of a postoperative wound. She was admitted to the hospital last month with a small-bowel obstruction and underwent laparoscopic small-bowel resection with anastomosis and laparoscopic adhesiolysis with release of small-bowel obstruction on 10/17/[address] Marshall. She has been doing okay but over the last week or so she has developed a painful knot just left of the center of the abdomen. The knot has increased in size significantly and is exquisitely tender. She has noticed started has turned red as well. She reports intermittent chills but has not had a documented fever. The area is not draining. Appetite has been good. She denies nausea, vomiting, and diarrhea. In the ED: She was afebrile on arrival with stable blood pressures. Labs are significant for WBC count of 17.8, hemoglobin 9.6, BUN 26, creatinine 1.40, glucose 173. Urine was positive for 1+ protein and trace ketones. CT scan showed mild esophagitis/gastritis and a 5.6 cm upper midline abdominal subcutaneous abscess which extends to the anterior abdominal wall along the anterior surface of the gastric fundus. She was given normal saline 1 L and Zosyn 3.375 g and she is being admitted in this setting for surgery consult. Review of Systems Review of Systems: 12 systems were reviewed and are negative except for as per HPI. [facility] Past Medical History Medical History (Updated 11/17/23 @ 23:45 by Cathy Pop PA-C) Adenomatous colon polyp Bipolar disorder, unspecified Cancer of left breast Chronic kidney disease, stage 3 (moderate) Chronic obstructive pulmonary disease, unspecified Constipation Coronary artery disease Coronary artery disease Degenerative cervical disc Essential (primary) hypertension Gastritis Gastroparesis Inflammatory arthritis Lumbar degenerative disc disease Menieres disease Obstructive sleep apnea on CPAP On home O2 at night Parkinson disease Seronegative rheumatoid arthritis of both hands Tardive dyskinesia Surgical History Surgical History History of bowel resection 10/17/23 Laparoscopic small bowel resection with anastomosis. Laparoscopic adhesiolysis with release of small bowel obstruction History of breast surgery History of cholecystectomy History of coronary artery stent placement stent placed 07/2023 History of hernia surgery History of hysterectomy History of liver biopsy Status post mastectomy Family History Family History Sibling Family history of malignant neoplasm Family history of diabetes mellitus in first degree relative Family history of lupus erythematosus Family history of malignant neoplasm of brain Family history of malignant neoplasm of breast Mother Family history of chronic obstructive pulmonary disease, Onset Age: 76 Patient's mother is Family history of emphysema Family history of malignant neoplasm of breast Father Family history of malignant neoplasm of esophagus, Onset Age: 54 Patient's father is Other Family history of cardiovascular disease Family history of malignant neoplasm of male breast Family history of obesity Social History Social History (Updated 11/17/23 @ 21:06 by Cathy Pop PA-C) Social History: Surrogate medical decision maker: Saman Wall, friend. Code status: Full code. Smoking packs per day: 0.5 Smoking cigarettes per day: 10.0 Years smoked: 50
[2023-11-17 21:06] VITALS: BP 143/62; PULSE 55; RESP 20; TEMP 37.1; O2SAT 97
[2023-11-17 22:27] VITALS: PULSE 84
[2023-11-17] MEDS: traZODone HCL 50 MG TABLET 100 MG PO (22:27)
[2023-11-17] MEDS: TOPIRAMATE 25 MG TABLET 50 MG PO (22:27)
[2023-11-17] MEDS: PANTOPRAZOLE 40 MG TABLET PO (22:27)
[2023-11-17] MEDS: carvediloL 25 MG TABLET PO (22:27)
[2023-11-17] MEDS: AMANTADINE HCL 100 MG CAPSULE PO (22:28)
[2023-11-17] MEDS: ATORVASTATIN 40 MG TABLET 80 MG PO (22:28)
[2023-11-17] MEDS: SODIUM CHLORIDE 0.9% IV 1,000 ML 100 ML IV CONT (22:34)
[2023-11-17 23:06] VITALS: PULSE 52; RESP 17; O2SAT 96
[2023-11-17 23:19] LABS: Iron 33 ug/dL (37-170)
[2023-11-17 23:28] LABS: Percent Iron Saturation 12 % (20-50)
[2023-11-18] MEDS: PIPERACILLIN/TAZ 2.25G/NS 50ML 2.25 GM/50 ML BAG IVPB ×4 (00:55→17:01)
[2023-11-18] MEDS: HYDROmorphone HCL INJ (*CRX) 1 MG/ML SYR 0.5 MG IV PUSH ×3 (03:12→10:34)
[2023-11-18 05:23] VITALS: BP 146/62; PULSE 60; RESP 20; TEMP 37.4; O2SAT 93
[2023-11-18 06:58] LABS: Hematocrit 28.8 % (37.0-47.0); Hemoglobin 8.7 g/dL (12.0-15.0); Mean Corpuscular HGB Conc 30.2 g/dl (32-36); Mean Corpuscular Hemoglobin 28.8 pg (26-34); Mean Corpuscular Volume 95.4 fl (80-100); Mean Platelet Volume 11.2 fl (7.4-10.4); Platelet Count Result 300 k/mm3 (150-375); Red Blood Count 3.02 M/mm3 (4.2-5.4); Red Cell Distribution Width 15.8 % (11.5-14.5); White Blood Count 17.6 K/mm3 (4.5-10.0)
[2023-11-18 07:06] LABS: Anion Gap 5 mmol/L (4-12); Blood Urea Nitrogen 23 mg/dL (7-17); Calcium 8.2 mg/dL (8.4-10.2); Carbon Dioxide 29 mmol/L (22-30); Chloride 106 mmol/L (98-107); Estimated CRCL calculation 35 ml/min; Estimated Glomerular Filt Rate 41; Glucose 87 mg/dL (65-110); Magnesium 1.9 mg/dL (1.6-2.3); Potassium 3.6 mmol/L (3.4-5.0); Sodium 140 mmol/L (137-145)
[2023-11-18 07:08] LABS: INR 1.1; Prothrombin Time 14.9 Seconds (11.1-14.7)
[2023-11-18 07:09] LABS: Partial Thromboplastin Time 37.7 Seconds (22.3-36.8)
[2023-11-18 07:30] LABS: Hemoglobin A1C 4.8 % (<5.7)
[2023-11-18 07:35] VITALS: PULSE 53; RESP 18; O2SAT 90
[2023-11-18] MEDS: FLUTICASONE/UMECLIDIN/VILANTER 100-62.5-25 MCG ELLIPTA 1 PUFF INHALATION (07:35)
[2023-11-18 08:12] LABS: Folic Acid 6.6 ng/mL (2.76->20)
[2023-11-18] MEDS: SODIUM CHLORIDE 0.9% IV 1,000 ML 100 ML IV CONT ×2 (08:32→22:55)
[2023-11-18] MEDS: VANCOMYCIN 1,750 MG/NS 500 ML 1,750 MG/500 ML BAG 250 MG IVPB (08:32)
--- NOTE | 2023-11-18 11:34 | PM.CNGS ---
Assessment and Plan Assessment and plan (1) Abdominal wall abscess: Code(s): L02.211 - Cutaneous abscess of abdominal wall Status: Acute Assessment and Plan: I have reviewed the CT and discussed the findings with the patient. She appears to have an abdominal wall abscess that will require incision and drainage. I have discussed proceeding with this at the bedside under local anesthesia. She has already been placed on Zosyn and vancomycin which should cover most potential organisms. Will continue with local wound care and assess for any underlying cause for this infection. The CT does show possibility of communication into the abdominal cavity. This could be translocation of bacteria from the adhesiolysis and small-bowel resection, also could be signs of a potential enterocutaneous fistula. (2) Coronary artery disease: Code(s): I25.10 - Atherosclerotic heart disease of [place] coronary artery without angina pectoris Status: Acute (3) Tobacco abuse: Code(s): Z72.0 - Tobacco use Status: Acute (4) Antiplatelet or antithrombotic long-term use: Code(s): Z79.02 - roasterman (current) use of antithrombotics/antiplatelets Status: Acute (5) Hypertension: Code(s): I10 - Essential (primary) hypertension Status: Acute History of Present Illness Consult details Consult date: 11/18/23 Reason for consult: other (Abdominal wall abscess) Requesting physician: Cathy Pop PA-C Narrative: This is a 68 year old woman presented to the emergency department last night with abdominal pain and swelling. She was previously hospitalized 1 month ago with a small-bowel obstruction and underwent laparoscopic adhesiolysis and small-bowel resection. She was doing well postoperatively until the last few days to a week. She was having some tenderness in the upper abdominal region but the past several days has noticed increasing swelling and redness. She was recently placed on antibiotics for pneumonia by her PCP. She denies any open wounds near this area. In the emergency department yesterday, she was noted to have an elevated white blood count and CT showed evidence of a large abdominal wall abscess in the region of swelling. She was admitted for further treatment and was placed on broad-spectrum IV antibiotics. Overnight she did notice an area of the skin that tore open and she began having some foul-smelling drainage in this region. She is feeling somewhat better since coming into the emergency department yesterday but is still having a lot of pain in this region. Review of Systems Review of Systems: All systems reviewed & are unremarkable except as noted in HPI and below Constitutional: Constitutional: Denies chills and Denies fever(s) Eyes: Eyes: Denies change in vision ENT: Denies hearing loss, Denies neck pain and Denies sore throat Cardiovascular: Cardiovascular: Denies chest pain and Denies dyspnea Respiratory: Respiratory: Denies cough, Denies dyspnea and Denies wheezing Gastrointestinal: Gastrointestinal: Reports as per HPI Genitourinary: Genitourinary: Denies hematuria and Denies dysuria Musculoskeletal: Musculoskeletal: Denies arthralgias, Denies joint swelling and Denies neck pain Allergic/Immunologic: Allergic/Immunologic: Denies wheezing [facility] Past Medical History Medical History Adenomatous colon polyp Bipolar disorder, unspecified Cancer of left breast Chronic kidney disease, stage 3 (moderate) Chronic obstructive pulmonary disease, unspecified Constipation Coronary artery disease Coronary artery disease Degenerative cervical disc Essential (primary) hypertension Gastritis Gastroparesis Inflammatory arthritis Lumbar degenerative disc disease Menieres disease Obstructive sleep apnea on CPAP On home O2 at night Parkinson disease Seronegative rheumatoid arthritis of both hands Tardive dyskinesi
--- NOTE | 2023-11-18 11:46 | P.OP_ITS ---
Procedure Note - Detailed Date of Procedure 11/18/23 Pre-op Diagnosis Abdominal wall abscess Post-op Diagnosis Same (infected hematoma) Procedure Performed Incision and drainage of complex abdominal wall abscess Surgeon Everett Marshall, Anesthesia Local (1% Lidocaine) Indications Abdominal wall abscess Findings Old hematoma and purulent fluid within abscess cavity. Several loculations but no definite communication deep to fascia. Description of Procedure Procedure as well as risks, benefits, and alternatives were discussed with patient. Written consent was placed in chart prior to procedure. Patient was placed supine on hospital bed. Her abdomen was prepped with Betadine prep. 1% lidocaine with epinephrine was infiltrated locally on the overlying skin. A 3 cm transverse incision was made directly over the area of fluctuance using a 11 blade scalpel. Purulence fluid was drained along with some old hematoma. A culture swab was used for aerobic and anaerobic culture and sensitivity. A cur marysol hemostat was then inserted and several loculations were broken up. More purulence fluid was drained. I then inspected the abscess cavity with my finger and broke up any further remaining loculations. The wound was then packed with half-inch iodoform gauze. 4 x 4 gauze and ABD pads were then applied. Estimated Blood Loss 5 Packing Yes (1/2 inch iodoform gauze) Complications No immediate complications Condition Stable Disposition No change [facility] Billing Surgery - Charge Forward: Surgery Billing
[2023-11-18] MEDS: amLODIPine BESYLATE 10 MG TABLET PO (12:58)
[2023-11-18] MEDS: TOPIRAMATE 25 MG TABLET 50 MG PO ×2 (12:58→20:34)
[2023-11-18] MEDS: SERTRALINE HCL 50 MG TABLET 150 MG PO (12:58)
[2023-11-18] MEDS: VALSARTAN 160 MG TABLET 320 MG PO (12:58)
[2023-11-18] MEDS: ISOSORBIDE MONONITRATE 60 MG TAB.ER.24H 120 MG PO (12:58)
[2023-11-18] MEDS: CLOPIDOGREL BISULFATE 75 MG TABLET PO (12:59)
[2023-11-18] MEDS: HYDROcodone/acetaminophen (*CRX) 10-325 MG TABLET 1 TAB PO ×2 (13:10→20:37)
--- NOTE | 2023-11-18 13:29 | PM.IMPN ---
Progress Note: A&P Assessment and Plan (1) Abdominal wall abscess: Code(s): L02.211 - Cutaneous abscess of abdominal wall Status: Acute Assessment and Plan: 11/18/23: CT of the abdomen pelvis showed a 5.6 cm upper midline abdominal subcutaneous abscess with extension through the anterior abdominal wall along the anterior surface of the gastric fundus Wound open and draining purulent and foul odored drainage General surgery consulted Patient was started on Zosyn and we added vancomycin today Patient taken to the OR for I&D White blood cell count 17.6 Wound cultures pending Continue pain and nausea control (2) Normocytic anemia: Code(s): D64.9 - Anemia, unspecified Status: Acute Assessment and Plan: 11/18/23: Hemoglobin 8.7, MCV 95.4 iron 33, ferritin 92.9, vitamin B12 604, folate 6.6 Will check reticulocyte count (3) Chronic kidney disease, stage 3 (moderate): Code(s): N18.3 - Chronic kidney disease, stage 3 (moderate) Status: Acute Assessment and Plan: 11/18/23: Creatinine 1.3, EGFR 41 Baseline 1.1-1.3 Continue to trend (4) Hypertension: Code(s): I10 - Essential (primary) hypertension Status: Acute Assessment and Plan: 11/18/23: Blood pressures ranging 146/62 to 170/83 Continue valsartan and amlodipine (5) Chronic obstructive pulmonary disease, unspecified: Qualifiers: COPD type: unspecified COPD Qualified Code(s): J44.9 - Chronic obstructive pulmonary disease, unspecified Code(s): J44.9 - Chronic obstructive pulmonary disease, unspecified Status: Acute Assessment and Plan: 11/18/23: Continue albuterol inhaler q.6 hours p.r.n. Time Spent With Patient Time with patient: 25 - 35 minutes Subjective Date/time seen: 11/18/23 13:29 Interval history: Interval history: This is a 68-year-old female who presented to the hospital on 11/17/2023 for evaluation of a postoperative fluid. She was admitted to the hospital last month was small-bowel obstruction and underwent laparoscopic small-bowel resection with anastomosis in lysis of adhesion with release of small-bowel obstruction on 10/17/[address] Marshall. Workup in the hospital included an abdomen pelvis CT with contrast showing mild esophagitis/gastritis, 5.6 cm upper midline abdominal subcutaneous abscess which extends through the anterior abdominal wall along the anterior surface of the gastric fundus. Initial labs showed a white blood cell count of 17.8, RBC 3.28, hemoglobin 9.6, creatinine 1.4, EGFR 38, lipase 46, vitamin B12 604, folate 6.6. UA was obtained and showed 1+ urine protein, trace ketones, otherwise unremarkable. Wound cultures were obtained and are pending. Patient was given 1 L of normal saline, Zofran, Dilaudid, Zosyn in the ED. General surgery was consulted today was taken to the OR for incision and drainage of a complex abdominal wall abscess. 11/18/2023: Patient denies any fever, chills, nausea, vomiting, diarrhea, chest pain, shortness a breath. She does report abdominal pain at the incision. Nursing reports that the incision started using drainage which was purulence and had a foul odor. Wound is now covered with an ABD pad. Review of Systems Review of Systems: All systems reviewed & are unremarkable except as noted in HPI and below Constitutional: Constitutional: Reports as per HPI and Reports no additional constitutional complaints Eyes: Eyes: Reports as per HPI and Reports no additional eye complaints ENT: Reports system reviewed and no additional complaints, except as documented and Reports as per HPI Cardiovascular: Cardiovascular: Reports as per HPI and Reports no additional cardiovascular complaints Respiratory: Respiratory: Reports as per HPI and Reports no additional respiratory complaints Gastrointestinal: Gastrointestinal: Reports as per HPI and Reports no additional gastrointestinal complaints Genitourinary:
[2023-11-18 14:00] VITALS: BP 170/83; PULSE 59; RESP 18; TEMP 36.1; O2SAT 96
[2023-11-18 14:57] LABS: Immature Reticulocyte Fraction 23.4 % (3.0-15.9); Reticulocyte Hemoglobin Conten 28.2 pg (28.2-36.6); Reticulocyte Percent 3.04 % (0.7-4.3); Reticulocytes Absolute 0.09 10^6/uL (0.02-0.10)
[2023-11-18] MEDS: AMANTADINE HCL 100 MG CAPSULE PO (20:34)
[2023-11-18] MEDS: PANTOPRAZOLE 40 MG TABLET PO (20:34)
[2023-11-18 20:35] VITALS: PULSE 63
[2023-11-18] MEDS: ATORVASTATIN 40 MG TABLET 80 MG PO (20:35)
[2023-11-18] MEDS: carvediloL 25 MG TABLET PO (20:35)
[2023-11-18 20:45] VITALS: BP 154/63; PULSE 58; RESP 18; TEMP 36.6; O2SAT 96
[2023-11-18] MEDS: traZODone HCL 50 MG TABLET 100 MG PO (21:24)
[2023-11-19] MEDS: PIPERACILLIN/TAZ 2.25G/NS 50ML 2.25 GM/50 ML BAG IVPB ×4 (00:15→17:13)
[2023-11-19] MEDS: HYDROcodone/acetaminophen (*CRX) 10-325 MG TABLET 1 TAB PO ×4 (03:24→21:16)
[2023-11-19] MEDS: amLODIPine BESYLATE 10 MG TABLET PO (05:57)
[2023-11-19 06:00] VITALS: BP 193/68; PULSE 52; RESP 14; TEMP 36.2; O2SAT 97
[2023-11-19 06:59] LABS: Estimated CRCL calculation 31 ml/min; Estimated Glomerular Filt Rate 35
--- NOTE | 2023-11-19 08:19 | P.PNIM_ITS ---
Progress Note: A&P Assessment and Plan (1) Abdominal wall abscess: Code(s): L02.211 - Cutaneous abscess of abdominal wall Status: Acute Assessment and Plan: 11/18/23: * CT of the abdomen pelvis showed a 5.6 cm upper midline abdominal subcutaneous abscess with extension through the anterior abdominal wall along the anterior surface of the gastric fundus * Wound open and draining purulent and foul odored drainage * General surgery consulted * Patient was started on Zosyn and we added vancomycin today * Patient taken to the OR for I&D * White blood cell count 17.6 * Wound cultures pending * Continue pain and nausea control 11/19/23: * Blood cultures still pending * White blood cell count 2 17.6 * Continue Zosyn and vancomycin * Will add Flagyl today * General surgery following (2) Normocytic anemia: Code(s): D64.9 - Anemia, unspecified Status: Acute Assessment and Plan: 11/18/23: * Hemoglobin 8.7, MCV 95.4 iron 33, ferritin 92.9, vitamin B12 604, folate 6.6 * Will check reticulocyte count 11/19/23: * Retic count 28.2 * Hemoglobin 8 .7 * Will start iron supplement today (3) Chronic kidney disease, stage 3 (moderate): Code(s): N18.3 - Chronic kidney disease, stage 3 (moderate) Status: Acute Assessment and Plan: 11/18/23: * Creatinine 1.3, EGFR 41 * Baseline 1.1-1.3 * Continue to trend 11/19/23: * Creatinine 1.5 * Continue to trend (4) Hypertension: Code(s): I10 - Essential (primary) hypertension Status: Acute Assessment and Plan: 11/18/23: * Blood pressures ranging 146/62 to 170/83 * Continue valsartan and amlodipine 11/19/23: * No change to current treatment plan (5) Chronic obstructive pulmonary disease, unspecified: Qualifiers: COPD type: unspecified COPD Qualified Code(s): J44.9 - Chronic obstructive pulmonary disease, unspecified Code(s): J44.9 - Chronic obstructive pulmonary disease, unspecified Status: Acute Assessment and Plan: 11/18/23: * Continue albuterol inhaler q.6 hours p.r.n. 11/19/23: * No change to current treatment plan Time Spent With Patient Time with patient: 25 - 35 minutes Subjective Date/time seen: 11/19/23 08:19 Interval history: Interval history: This is a 68-year-old female who presented to the hospital on 11/17/2023 for evaluation of a postoperative fluid. She was admitted to the hospital last month was small-bowel obstruction and underwent laparoscopic small-bowel resection with anastomosis in lysis of adhesion with release of small-bowel obstruction on 10/17/[address] Marshall. Workup in the hospital included an abdomen pelvis CT with contrast showing mild esophagitis/gastritis, 5.6 cm upper midline abdominal subcutaneous abscess which extends through the anterior abdominal wall along the anterior surface of the gastric fundus. Initial labs showed a white blood cell count of 17.8, RBC 3.28, hemoglobin 9.6, creatinine 1.4, EGFR 38, lipase 46, vitamin B12 604, folate 6.6. UA was obtained and showed 1+ urine protein, trace ketones, otherwise unremarkable. Wound cultures were obtained and are pending. Patient was given 1 L of normal saline, Zofran, Dilaudid, Zosyn in the ED. General surgery was consulted today was taken to the OR for incision and drainage of a complex abdominal wall abscess. 11/18/2023: Patient denies any fever, chills, nausea, vomiting, diarrhea, chest pain, shortness a breath. She does report abdominal pain at the incision. Nursing reports that the incision started usin
--- NOTE | 2023-11-19 08:19 | PM.IMPN ---
Progress Note: A&P Assessment and Plan (1) Abdominal wall abscess: Code(s): L02.211 - Cutaneous abscess of abdominal wall Status: Acute Assessment and Plan: 11/18/23: CT of the abdomen pelvis showed a 5.6 cm upper midline abdominal subcutaneous abscess with extension through the anterior abdominal wall along the anterior surface of the gastric fundus Wound open and draining purulent and foul odored drainage General surgery consulted Patient was started on Zosyn and we added vancomycin today Patient taken to the OR for I&D White blood cell count 17.6 Wound cultures pending Continue pain and nausea control 11/19/23: Blood cultures still pending White blood cell count 2 17.6 Continue Zosyn and vancomycin Will add Flagyl today General surgery following (2) Normocytic anemia: Code(s): D64.9 - Anemia, unspecified Status: Acute Assessment and Plan: 11/18/23: Hemoglobin 8.7, MCV 95.4 iron 33, ferritin 92.9, vitamin B12 604, folate 6.6 Will check reticulocyte count 11/19/23: Retic count 28.2 Hemoglobin 8 .7 Will start iron supplement today (3) Chronic kidney disease, stage 3 (moderate): Code(s): N18.3 - Chronic kidney disease, stage 3 (moderate) Status: Acute Assessment and Plan: 11/18/23: Creatinine 1.3, EGFR 41 Baseline 1.1-1.3 Continue to trend 11/19/23: Creatinine 1.5 Continue to trend (4) Hypertension: Code(s): I10 - Essential (primary) hypertension Status: Acute Assessment and Plan: 11/18/23: Blood pressures ranging 146/62 to 170/83 Continue valsartan and amlodipine 11/19/23: No change to current treatment plan (5) Chronic obstructive pulmonary disease, unspecified: Qualifiers: COPD type: unspecified COPD Qualified Code(s): J44.9 - Chronic obstructive pulmonary disease, unspecified Code(s): J44.9 - Chronic obstructive pulmonary disease, unspecified Status: Acute Assessment and Plan: 11/18/23: Continue albuterol inhaler q.6 hours p.r.n. 11/19/23: No change to current treatment plan Time Spent With Patient Time with patient: 25 - 35 minutes Subjective Date/time seen: 08/15/24 08:19 Interval history: Interval history: This is a 68-year-old female who presented to the hospital on 11/17/2023 for evaluation of a postoperative fluid. She was admitted to the hospital last month was small-bowel obstruction and underwent laparoscopic small-bowel resection with anastomosis in lysis of adhesion with release of small-bowel obstruction on 10/17/[address] Marshall. Workup in the hospital included an abdomen pelvis CT with contrast showing mild esophagitis/gastritis, 5.6 cm upper midline abdominal subcutaneous abscess which extends through the anterior abdominal wall along the anterior surface of the gastric fundus. Initial labs showed a white blood cell count of 17.8, RBC 3.28, hemoglobin 9.6, creatinine 1.4, EGFR 38, lipase 46, vitamin B12 604, folate 6.6. UA was obtained and showed 1+ urine protein, trace ketones, otherwise unremarkable. Wound cultures were obtained and are pending. Patient was given 1 L of normal saline, Zofran, Dilaudid, Zosyn in the ED. General surgery was consulted today was taken to the OR for incision and drainage of a complex abdominal wall abscess. 11/18/2023: Patient denies any fever, chills, nausea, vomiting, diarrhea, chest pain, shortness a breath. She does report abdominal pain at the incision. Nursing reports that the incision started using drainage which was purulence and had a foul odor. Wound is now covered with an ABD pad. 11/19/23: Patient denies any new complaints today. She reports that her pain is 5/10 and is well controlled with oral pain medications. Labs and cultures reviewed. Review of Systems Review of Systems: 12 systems were reviewed and are negative except for as per HPI. All systems reviewed & are unremarkable except as noted in H
[2023-11-19] MEDS: TOPIRAMATE 25 MG TABLET 50 MG PO ×2 (09:14→20:18)
[2023-11-19] MEDS: ISOSORBIDE MONONITRATE 60 MG TAB.ER.24H 120 MG PO (09:14)
[2023-11-19] MEDS: SODIUM CHLORIDE 0.9% IV 1,000 ML 100 ML IV CONT ×2 (09:14→20:22)
[2023-11-19] MEDS: VALSARTAN 160 MG TABLET 320 MG PO (09:14)
[2023-11-19] MEDS: CLOPIDOGREL BISULFATE 75 MG TABLET PO (09:15)
[2023-11-19] MEDS: ASPIRIN 81 MG ENTERIC TABLET PO (09:15)
[2023-11-19] MEDS: SERTRALINE HCL 50 MG TABLET 150 MG PO (09:15)
[2023-11-19] MEDS: PANTOPRAZOLE 40 MG TABLET PO ×2 (09:16→20:20)
[2023-11-19] MEDS: CHOLECALCIFEROL 1,000 UNITS TABLET 1000 UNITS PO (09:16)
[2023-11-19] MEDS: carvediloL 25 MG TABLET PO ×2 (09:19→20:19)
[2023-11-19] MEDS: FLUTICASONE/UMECLIDIN/VILANTER 100-62.5-25 MCG ELLIPTA 1 PUFF INHALATION (09:34)
[2023-11-19 09:35] VITALS: PULSE 60; RESP 20; O2SAT 96
[2023-11-19] MEDS: FERROUS SULFATE 325 MG TABLET DR PO (12:12)
[2023-11-19 13:58] VITALS: BP 139/63; PULSE 54; RESP 18; TEMP 36.5; O2SAT 100
[2023-11-19] MEDS: metroNIDAZOLE 500 MG TABLET PO ×2 (14:05→20:20)
--- NOTE | 2023-11-19 16:08 | PM.PNGS ---
Progress Note: A&P Assessment and Plan (1) Abdominal wall abscess: Code(s): L02.211 - Cutaneous abscess of abdominal wall Status: Acute Assessment and Plan: Cultures pending. Continue local wound care and IV antibiotics. Possibly home once cultures and sensitivities back. (2) Coronary artery disease: Code(s): I25.10 - Atherosclerotic heart disease of [place] coronary artery without angina pectoris Status: Acute (3) Hypertension: Code(s): I10 - Essential (primary) hypertension Status: Acute (4) Tobacco abuse: Code(s): Z72.0 - Tobacco use Status: Acute (5) CAD (coronary artery disease): Code(s): I25.10 - Atherosclerotic heart disease of [place] coronary artery without angina pectoris Status: Chronic (6) Antiplatelet or antithrombotic long-term use: Code(s): Z79.02 - feed mill manager (current) use of antithrombotics/antiplatelets Status: Acute Subjective Subjective Date/Time Seen: 11/19/23 16:08 Interval history: Doing well today. Less pain. No fevers. Exam GI: Other: Upper abdominal wound packing removed. Mostly bloody drainage. Erythema improved. Objective Data Vital Signs Vital Signs: Vital Signs - 24 hr 11/18/23 20:35 11/18/23 20:45 11/18/23 20:00 Temperature 36.6 C Pulse Rate 63 58 L Respiratory Rate 18 Blood Pressure 154/63 H Pulse Oximetry 96 Oxygen Delivery Room Air Fraction of Inspired Oxygen 11/18/23 21:30 11/19/23 06:00 11/19/23 09:35 Temperature 36.2 C L Pulse Rate 52 L Respiratory Rate 14 Blood Pressure 193/68 H Pulse Oximetry 97 96 Oxygen Delivery CPAP Room Air Fraction of Inspired Oxygen 21 11/19/23 09:35 11/19/23 13:58 Temperature 36.5 C Pulse Rate 60 54 L Respiratory Rate 20 18 Blood Pressure 139/63 Pulse Oximetry 100 Oxygen Delivery Fraction of Inspired Oxygen Intake/Output Intake/Output: Intake & Output 11/16/23 11/17/23 11/18/23 11/19/23 23:59 23:59 23:59 23:59 Intake Total 2876.7 1870 Output Total 5 Balance 2876.7 1865 Meds/Results Medications: Active Medications Generic Name Dose Route Start Last Admin Trade Name Freq PRN Reason Stop Dose Admin Hydrocodone Bitart/Acetaminophen 1 tab 11/18/23 11:33 Hydrocodone/Acetaminophen (*Crx) 5-325 Mg Tablet PO Q4H PRN Pain Rated 4-6 Hydrocodone Bitart/Acetaminophen 1 tab 11/18/23 11:33 11/19/23 15:44 Hydrocodone/Acetaminophen (*Crx) 10-325 Mg Tablet PO 1 tab Q4H PRN Administration Pain Rated 7-10 Albuterol 1.25 mg 11/17/23 21:39 Albuterol Sulfate Neb 2.5 Mg/3 Ml Inh INHALATION Q6H PRN Shortness Of Breath Or Wheezing Albuterol 2 puff 11/17/23 21:12 Albuterol Sulfate (*Sp) Aerosol 1 Puff INHALATION Q4H PRN Shortness Of Breath Amantadine HCl 100 mg 11/17/23 21:40 11/18/23 20:34 Amantadine Hcl 100 Mg Capsule PO 100 mg QHS LORENZO Administration Amlodipine Besylate 10 mg 11/18/23 09:00 11/19/23 05:57 Amlodipine Besylate 10 Mg Tablet PO 10 mg DAILY LORENZO Administration Aspirin 81 mg 11/19/23 09:00 11/19/23 09:15 Aspirin 81 Mg Enteric Tablet PO 81 mg DAILY LORENZO Administration Atorvastatin Calcium 80 mg 11/17/23 21:45 11/18/23 20:35 Atorvastatin 40 Mg Tablet PO 80 mg QHS LORENZO Administration Carvedilol 25 mg 11/17/23 21:15 11/19/23 09:19 Carvedilol 25 Mg Tablet PO 25 mg Q12HR LORENZO Administration Clopidogrel Bisulfate 75 mg 11/18/23 09:00 11/19/23 09:15 Clopidogrel Bisulfate 75 Mg Tablet PO 75 mg DAILY LORENZO Administration Ferrous Sulfate 325 mg 11/19/23 12:00 11/19/23 12:12 Ferrous Sulfate [address] PO 325 mg DAILY LORENZO Administration Fluticasone/Umeclidinium/Vilanterol 1 puff 11/18/23 09:00 11/19/23 09:34 Fluticasone/Umeclidin/Vilanter 100-62.5-25 Mcg Ellipta INHALATION 1 puff DAILY LORENZO Administration Hydromorphone HCl 1 mg
[2023-11-19] MEDS: VANCOMYCIN 1,250 MG/NS 250 ML 1,250 MG/250 ML BAG 166.67 MG IVPB (20:17)
[2023-11-19] MEDS: AMANTADINE HCL 100 MG CAPSULE PO (20:18)
[2023-11-19 20:19] VITALS: PULSE 65
[2023-11-19] MEDS: ATORVASTATIN 40 MG TABLET 80 MG PO (20:20)
[2023-11-19 20:30] VITALS: BP 174/71; PULSE 65; RESP 18; TEMP 37.1; O2SAT 96
[2023-11-19] MEDS: traZODone HCL 50 MG TABLET 100 MG PO (21:16)
[2023-11-19 22:51] VITALS: RESP 15
[2023-11-20] VITALS (7 sets, daily range): BP systolic 149–156; BP diastolic 68–70; PULSE 54–61; RESP 16–20; TEMP 36.8–36.9; O2SAT 96–100
[2023-11-20] MEDS: PIPERACILLIN/TAZ 2.25G/NS 50ML 2.25 GM/50 ML BAG IVPB ×4 (00:33→17:48)
[2023-11-20] MEDS: HYDROcodone/acetaminophen (*CRX) 10-325 MG TABLET 1 TAB PO ×5 (05:19→22:17)
[2023-11-20] MEDS: metroNIDAZOLE 500 MG TABLET PO ×3 (05:19→22:18)
[2023-11-20 06:22] LABS: Hematocrit 28.8 % (37.0-47.0); Hemoglobin 8.5 g/dL (12.0-15.0); Mean Corpuscular HGB Conc 29.5 g/dl (32-36); Mean Corpuscular Hemoglobin 28.1 pg (26-34); Platelet Count Result 264 k/mm3 (150-375); Red Blood Count 3.03 M/mm3 (4.2-5.4); Red Cell Distribution Width 15.3 % (11.5-14.5); White Blood Count 8.7 K/mm3 (4.5-10.0)
[2023-11-20 06:36] LABS: Estimated CRCL calculation 38 ml/min; Estimated Glomerular Filt Rate 45
[2023-11-20] MEDS: FLUTICASONE/UMECLIDIN/VILANTER 100-62.5-25 MCG ELLIPTA 1 PUFF INHALATION (08:17)
[2023-11-20] MEDS: CHOLECALCIFEROL 1,000 UNITS TABLET 1000 UNITS PO (08:45)
[2023-11-20] MEDS: carvediloL 25 MG TABLET PO ×2 (08:45→20:43)
[2023-11-20] MEDS: ASPIRIN 81 MG ENTERIC TABLET PO (08:45)
[2023-11-20] MEDS: amLODIPine BESYLATE 10 MG TABLET PO (08:45)
[2023-11-20] MEDS: CLOPIDOGREL BISULFATE 75 MG TABLET PO (08:49)
[2023-11-20] MEDS: VALSARTAN 160 MG TABLET 320 MG PO (08:50)
[2023-11-20] MEDS: FERROUS SULFATE 325 MG TABLET DR PO (08:50)
[2023-11-20] MEDS: ISOSORBIDE MONONITRATE 60 MG TAB.ER.24H 120 MG PO (08:50)
[2023-11-20] MEDS: TOPIRAMATE 25 MG TABLET 50 MG PO ×2 (08:50→20:42)
[2023-11-20] MEDS: SERTRALINE HCL 50 MG TABLET 150 MG PO (08:50)
[2023-11-20] MEDS: PANTOPRAZOLE 40 MG TABLET PO ×2 (08:50→20:42)
[2023-11-20] MEDS: MECLIZINE HCL 25 MG TABLET PO ×2 (08:51→20:43)
--- NOTE | 2023-11-20 09:42 | P.PNIM_ITS ---
Progress Note: A&P Assessment and Plan (1) Abdominal wall abscess: Code(s): L02.211 - Cutaneous abscess of abdominal wall Status: Acute Assessment and Plan: 11/18/23: * CT of the abdomen pelvis showed a 5.6 cm upper midline abdominal subcutaneous abscess with extension through the anterior abdominal wall along the anterior surface of the gastric fundus * Wound open and draining purulent and foul odored drainage * General surgery consulted * Patient was started on Zosyn and we added vancomycin today * Patient taken to the OR for I&D * White blood cell count 17.6 * Wound cultures pending * Continue pain and nausea control 11/19/23: * White blood cell count 2 17.6 * Continue Zosyn and vancomycin * Will add Flagyl today * General surgery following * Wound culture still pending 11/20/23: * White blood cell count down to 8.7 * Continue Zosyn, Flagyl, vancomycin * General surgery following * Wound culture today showing moderate Gram-positive cocci in clusters with few Gram-positive bacilli on preliminary read (2) Normocytic anemia: Code(s): D64.9 - Anemia, unspecified Status: Acute Assessment and Plan: 11/18/23: * Hemoglobin 8.7, MCV 95.4 iron 33, ferritin 92.9, vitamin B12 604, folate 6.6 * Will check reticulocyte count 11/19/23: * Retic count 28.2 * Hemoglobin 8 .7 * Will start iron supplement today 11/20/23: * Continue with current treatment plan (3) Chronic kidney disease, stage 3 (moderate): Code(s): N18.3 - Chronic kidney disease, stage 3 (moderate) Status: Acute Assessment and Plan: 11/18/23: * Creatinine 1.3, EGFR 41 * Baseline 1.1-1.3 * Continue to trend 11/19/23: * Creatinine 1.5 * Continue to trend 11/20/23: * Creatinine down to 1.2 * Back to baseline (4) Hypertension: Code(s): I10 - Essential (primary) hypertension Status: Acute Assessment and Plan: 11/18/23: * Blood pressures ranging 146/62 to 170/83 * Continue valsartan and amlodipine 11/19/23: * No change to current treatment plan (5) Chronic obstructive pulmonary disease, unspecified: Qualifiers: COPD type: unspecified COPD Qualified Code(s): J44.9 - Chronic obstructive pulmonary disease, unspecified Code(s): J44.9 - Chronic obstructive pulmonary disease, unspecified Status: Acute Assessment and Plan: 11/18/23: * Continue albuterol inhaler q.6 hours p.r.n. 11/19/23: * No change to current treatment plan (6) Back pain: Code(s): M54.9 - Dorsalgia, unspecified Status: Acute Assessment and Plan: 11/20/23: * Patient complaining of 9/10 lower back pain * Will get x-ray of thoracic and lumbar spine * Continue pain medication Time Spent With Patient Time with patient: 15 - 25 minutes Subjective Date/time seen: 11/20/23 09:42 Interval history: Interval history: This is a 68-year-old female who presented to the hospital on 11/17/2023 for ev aluation of a postoperative fluid. She was admitted to the hospital last month was small-bowel obstruction and underwent laparoscopic small-bowel resection with anastomosis in lysis of adhesion with release of small-bowel obstruction on 10/17/[address] Marshall. Workup in the hospital included an abdomen pelvis CT with contrast showing mild esophagitis/gastritis, 5.6 cm upper midline abdominal subcutaneous abscess which extends through the anterior abdominal wall along the anterior surface of the gastric fundus. Initial labs showed a white b
--- NOTE | 2023-11-20 09:42 | PM.IMPN ---
Progress Note: A&P Assessment and Plan (1) Abdominal wall abscess: Code(s): L02.211 - Cutaneous abscess of abdominal wall Status: Acute Assessment and Plan: 11/18/23: CT of the abdomen pelvis showed a 5.6 cm upper midline abdominal subcutaneous abscess with extension through the anterior abdominal wall along the anterior surface of the gastric fundus Wound open and draining purulent and foul odored drainage General surgery consulted Patient was started on Zosyn and we added vancomycin today Patient taken to the OR for I&D White blood cell count 17.6 Wound cultures pending Continue pain and nausea control 11/19/23: White blood cell count 2 17.6 Continue Zosyn and vancomycin Will add Flagyl today General surgery following Wound culture still pending 11/20/23: White blood cell count down to 8.7 Continue Zosyn, Flagyl, vancomycin General surgery following Wound culture today showing moderate Gram-positive cocci in clusters with few Gram-positive bacilli on preliminary read (2) Normocytic anemia: Code(s): D64.9 - Anemia, unspecified Status: Acute Assessment and Plan: 11/18/23: Hemoglobin 8.7, MCV 95.4 iron 33, ferritin 92.9, vitamin B12 604, folate 6.6 Will check reticulocyte count 11/19/23: Retic count 28.2 Hemoglobin 8 .7 Will start iron supplement today 11/20/23: Continue with current treatment plan (3) Chronic kidney disease, stage 3 (moderate): Code(s): N18.3 - Chronic kidney disease, stage 3 (moderate) Status: Acute Assessment and Plan: 11/18/23: Creatinine 1.3, EGFR 41 Baseline 1.1-1.3 Continue to trend 11/19/23: Creatinine 1.5 Continue to trend 11/20/23: Creatinine down to 1.2 Back to baseline (4) Hypertension: Code(s): I10 - Essential (primary) hypertension Status: Acute Assessment and Plan: 11/18/23: Blood pressures ranging 146/62 to 170/83 Continue valsartan and amlodipine 11/19/23: No change to current treatment plan (5) Chronic obstructive pulmonary disease, unspecified: Qualifiers: COPD type: unspecified COPD Qualified Code(s): J44.9 - Chronic obstructive pulmonary disease, unspecified Code(s): J44.9 - Chronic obstructive pulmonary disease, unspecified Status: Acute Assessment and Plan: 11/18/23: Continue albuterol inhaler q.6 hours p.r.n. 11/19/23: No change to current treatment plan (6) Back pain: Code(s): M54.9 - Dorsalgia, unspecified Status: Acute Assessment and Plan: 11/20/23: Patient complaining of 9/10 lower back pain Will get x-ray of thoracic and lumbar spine Continue pain medication Time Spent With Patient Time with patient: 15 - 25 minutes Subjective Date/time seen: 11/20/23 09:42 Interval history: Interval history: This is a 68-year-old female who presented to the hospital on 11/17/2023 for evaluation of a postoperative fluid. She was admitted to the hospital last month was small-bowel obstruction and underwent laparoscopic small-bowel resection with anastomosis in lysis of adhesion with release of small-bowel obstruction on 10/17/[address] Marshall. Workup in the hospital included an abdomen pelvis CT with contrast showing mild esophagitis/gastritis, 5.6 cm upper midline abdominal subcutaneous abscess which extends through the anterior abdominal wall along the anterior surface of the gastric fundus. Initial labs showed a white blood cell count of 17.8, RBC 3.28, hemoglobin 9.6, creatinine 1.4, EGFR 38, lipase 46, vitamin B12 604, folate 6.6. UA was obtained and showed 1+ urine protein, trace ketones, otherwise unremarkable. Wound cultures were obtained and are pending. Patient was given 1 L of normal saline, Zofran, Dilaudid, Zosyn in the ED. General surgery was consulted today was taken to the OR for incision and drainage of a complex abdominal wall abscess. 11/18/2023: Patient denies any fever, chills, nause
--- NOTE | 2023-11-20 11:33 | PM.PNGS ---
Progress Note: A&P Assessment and Plan (1) Abdominal wall abscess: Code(s): L02.211 - Cutaneous abscess of abdominal wall Status: Acute Assessment and Plan: Cultures pending. Continue local wound care and IV antibiotics. Possibly home once cultures and sensitivities back. 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 No fevers. Pain improved. Exam GI: Other: Upper abdominal wound packing removed. Mostly bloody drainage. Erythema improved. Objective Data Vital Signs Vital Signs: Vital Signs - 24 hr 11/19/23 13:58 11/19/23 20:19 11/19/23 20:30 Temperature 36.5 C 37.1 C Pulse Rate 54 L 65 65 Respiratory Rate 18 18 Blood Pressure 139/63 174/71 H Pulse Oximetry 100 96 Oxygen Delivery 11/19/23 20:00 11/19/23 22:51 11/20/23 05:26 Temperature 36.8 C Pulse Rate 54 L Respiratory Rate 15 18 Blood Pressure 155/68 H Pulse Oximetry 99 Oxygen Delivery Room Air Autopap 11/20/23 08:17 11/20/23 08:17 11/20/23 08:45 Temperature Pulse Rate 55 L 61 Respiratory Rate 20 Blood Pressure Pulse Oximetry 96 Oxygen Delivery Room Air Intake/Output Intake/Output: Intake & Output 11/17/23 11/18/23 11/19/23 11/20/23 23:59 23:59 23:59 23:59 Intake Total 2876.7 3170 590 Output Total 5 Balance 2876.7 3165 590 Meds/Results Medications: Active Medications Generic Name Dose Route Start Last Admin Trade Name Freq PRN Reason Stop Dose Admin Hydrocodone Bitart/Acetaminophen 1 tab 11/18/23 11:33 Hydrocodone/Acetaminophen (*Crx) 5-325 Mg Tablet PO Q4H PRN Pain Rated 4-6 Hydrocodone Bitart/Acetaminophen 1 tab 11/18/23 11:33 11/20/23 08:57 Hydrocodone/Acetaminophen (*Crx) 10-325 Mg Tablet PO 1 tab Q4H PRN Administration Pain Rated 7-10 Albuterol 1.25 mg 11/17/23 21:39 Albuterol Sulfate Neb 2.5 Mg/3 Ml Inh INHALATION Q6H PRN Shortness Of Breath Or Wheezing Albuterol 2 puff 11/17/23 21:12 Albuterol Sulfate (*Sp) Aerosol 1 Puff INHALATION Q4H PRN Shortness Of Breath Amantadine HCl 100 mg 11/17/23 21:40 11/19/23 20:18 Amantadine Hcl 100 Mg Capsule PO 100 mg QHS LORENZO Administration Amlodipine Besylate 10 mg 11/18/23 09:00 11/20/23 08:45 Amlodipine Besylate 10 Mg Tablet PO 10 mg DAILY LORENZO Administration Aspirin 81 mg 11/19/23 09:00 11/20/23 08:45 Aspirin 81 Mg Enteric Tablet PO 81 mg DAILY LORENZO Administration Atorvastatin Calcium 80 mg 11/17/23 21:45 11/19/23 20:20 Atorvastatin 40 Mg Tablet PO 80 mg QHS LORENZO Administration Carvedilol 25 mg 11/17/23 21:15 11/20/23 08:45 Carvedilol 25 Mg Tablet PO 25 mg Q12HR LORENZO Administration Clopidogrel Bisulfate 75 mg 11/18/23 09:00 11/20/23 08:49 Clopidogrel Bisulfate 75 Mg Tablet PO 75 mg DAILY LORENZO Administration Docusate Sodium 200 mg 11/20/23 09:30 Docusate Sodium 100 Mg Capsule PO DA[facility] Enoxaparin Sodium 40 mg 11/20/23 10:10 Enoxaparin 40 Mg/0.4 Ml Syringe SUB-Q DAILY [facility] Ferrous Sulfate 325 mg 11/19/23 12:00 11/20/23 08:50 Ferrous Sulfate [address] PO 325 mg DAILY LORENZO Administration Fluticasone/Umeclidinium/Vilanterol 1 puff 11/18/23 09:00 11/20/23 08:17 Fluticasone/Umeclidin/Vilanter 100-62.5-25 Mcg Ellipta INHALATION 1 puff DAILY [facility] Administration Hydromorphone HCl 1 mg 11/18/23 11:33
[2023-11-20] MEDS: DOCUSATE SODIUM 100 MG CAPSULE 200 MG PO (12:17)
[2023-11-20] MEDS: ENOXAPARIN 40 MG/0.4 ML SYRINGE SUB-Q (12:17)
[2023-11-20] MEDS: AMANTADINE HCL 100 MG CAPSULE PO (20:42)
[2023-11-20] MEDS: ATORVASTATIN 40 MG TABLET 80 MG PO (20:43)
[2023-11-20] MEDS: ALBUTEROL SULFATE NEB 2.5 MG/3 ML INH 1.25 MG INHALATION (21:09)
[2023-11-20] MEDS: traZODone HCL 50 MG TABLET 100 MG PO (22:17)
--- NOTE | 2023-11-20 22:48 | PC.NURSE ---
I reviewed the License Pending [employer]an's documentation and agree with Celeste Baxter's findings.
[2023-11-21] VITALS (14 sets, daily range): BP systolic 140–184; BP diastolic 60–78; PULSE 53–65; RESP 16–22; TEMP 36.6–36.9; O2SAT 98–100
[2023-11-21] MEDS: PIPERACILLIN/TAZ 2.25G/NS 50ML 2.25 GM/50 ML BAG IVPB ×3 (00:23→11:10)
[2023-11-21] MEDS: metroNIDAZOLE 500 MG TABLET PO ×3 (05:23→21:03)
[2023-11-21] MEDS: HYDROcodone/acetaminophen (*CRX) 10-325 MG TABLET 1 TAB PO ×4 (05:23→23:19)
[2023-11-21] MEDS: FLUTICASONE/UMECLIDIN/VILANTER 100-62.5-25 MCG ELLIPTA 1 PUFF INHALATION (07:40)
[2023-11-21] MEDS: CLOPIDOGREL BISULFATE 75 MG TABLET PO (08:18)
[2023-11-21] MEDS: amLODIPine BESYLATE 10 MG TABLET PO (08:18)
[2023-11-21] MEDS: CHOLECALCIFEROL 1,000 UNITS TABLET 1000 UNITS PO (08:18)
[2023-11-21] MEDS: DOCUSATE SODIUM 100 MG CAPSULE 200 MG PO (08:18)
[2023-11-21] MEDS: carvediloL 25 MG TABLET PO ×2 (08:18→21:02)
[2023-11-21] MEDS: SERTRALINE HCL 50 MG TABLET 150 MG PO (08:18)
[2023-11-21] MEDS: PANTOPRAZOLE 40 MG TABLET PO ×2 (08:18→21:02)
[2023-11-21] MEDS: VALSARTAN 160 MG TABLET 320 MG PO (08:18)
[2023-11-21] MEDS: ASPIRIN 81 MG ENTERIC TABLET PO (08:18)
[2023-11-21] MEDS: FERROUS SULFATE 325 MG TABLET DR PO (08:18)
[2023-11-21] MEDS: TOPIRAMATE 25 MG TABLET 50 MG PO ×2 (08:18→21:02)
[2023-11-21] MEDS: ISOSORBIDE MONONITRATE 60 MG TAB.ER.24H 120 MG PO (08:18)
[2023-11-21 08:24] LABS: Estimated CRCL calculation 35 ml/min; Estimated Glomerular Filt Rate 41
[2023-11-21] MEDS: MECLIZINE HCL 25 MG TABLET PO ×3 (08:26→23:19)
[2023-11-21 09:48] LABS: Vancomycin Trough 9.1 ug/mL (10.0-20.0)
[2023-11-21] MEDS: VANCOMYCIN 1,250 MG/NS 250 ML 1,250 MG/250 ML BAG 166.67 MG IVPB (11:10)
--- NOTE | 2023-11-21 11:51 | PM.PNGS ---
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 Will change antibiotics to Cipro and Flagyl. Continue daily packing changes. OK to discharge home from surgical standpoint. Subjective Subjective Date/Time Seen: 11/21/23 11:51 Interval history: Patient tolerating dressing changes. Mostly complains of dizziness. Tolerating diet. No fevers. Exam GI: Other: Upper abdominal wound packing removed. Mostly bloody drainage. Erythema improved. Objective Data Vital Signs Vital Signs: Vital Signs - 24 hr 11/20/23 15:50 11/20/23 20:43 11/20/23 20:42 Temperature 36.8 C 36.9 C Pulse Rate 59 L 57 L 57 L Respiratory Rate 16 16 Blood Pressure 156/68 H 149/70 H Pulse Oximetry 97 100 Oxygen Delivery 11/20/23 21:10 11/21/23 00:46 11/21/23 05:36 Temperature 36.9 C Pulse Rate 58 L 53 L Respiratory Rate 20 16 16 Blood Pressure 150/69 H Pulse Oximetry 100 Oxygen Delivery Autopap 11/21/23 07:40 11/21/23 07:40 11/21/23 08:18 Temperature Pulse Rate 63 63 65 Respiratory Rate 16 16 Blood Pressure Pulse Oximetry 99 Oxygen Delivery Room Air 11/21/23 08:15 Temperature Pulse Rate Respiratory Rate Blood Pressure Pulse Oximetry Oxygen Delivery Room Air Intake/Output Intake/Output: Intake & Output 11/18/23 11/19/23 11/20/23 11/21/23 23:59 23:59 23:59 23:59 Intake Total 2876.7 3170 1780 460 Output Total 5 Balance 2876.7 3165 1780 460 Meds/Results Medications: Active Medications Generic Name Dose Route Start Last Admin Trade Name Freq PRN Reason Stop Dose Admin Hydrocodone Bitart/Acetaminophen 1 tab 11/18/23 11:33 Hydrocodone/Acetaminophen (*Crx) 5-325 Mg Tablet PO Q4H PRN Pain Rated 4-6 Hydrocodone Bitart/Acetaminophen 1 tab 11/18/23 11:33 11/21/23 11:09 Hydrocodone/Acetaminophen (*Crx) 10-325 Mg Tablet PO 1 tab Q4H PRN Administration Pain Rated 7-10 Albuterol 1.25 mg 11/17/23 21:39 11/20/23 21:09 Albuterol Sulfate Neb 2.5 Mg/3 Ml Inh INHALATION 1.25 mg Q6H PRN Administration Shortness Of Breath Or Wheezing Albuterol 2 puff 11/17/23 21:12 Albuterol Sulfate (*Sp) Aerosol 1 Puff INHALATION Q4H PRN Shortness Of Breath Amantadine HCl 100 mg 11/17/23 21:40 11/20/23 20:42 Amantadine Hcl 100 Mg Capsule PO 100 mg QHS LORENZO Administration Amlodipine Besylate 10 mg 11/18/23 09:00 11/21/23 08:18 Amlodipine Besylate 10 Mg Tablet PO 10 mg DAILY L[facility] Administration Aspirin 81 mg 11/19/23 09:00 11/21/23 08:18 Aspirin 81 Mg Enteric Tablet PO 81 mg DAILY L[facility]ENZO Administration Atorvastatin Calcium 80 mg 11/17/23 21:45 11/20/23 20:43 Atorvastatin 40 Mg Tablet PO 80 mg QHS LORENZO Administration Carvedilol 25 mg 11/17/23 21:15 11/21/23 08:18 Carvedilol 25 Mg Tablet PO 25 mg Q12HR LORENZO Administration Ciprofloxacin 500 mg 11/21/23 21:00 Ciprofloxacin 500 Mg Tab PO Q12HR LORENZO Clopidogrel Bisulfate 75 mg 11/18/23 09:00 11/21/23 08:18 Clopidogrel Bisulfate 75 Mg Tablet PO 75 mg DAILY LORENZO Administration Docusate Sodium 200 mg 11/20/23 09:30 11/21/23 08:18 Docusate Sodium 100 Mg Capsule PO 200 mg DAILY LORENZO Administration Enoxaparin Sodium 40 mg 11/20/23 10:10 11/21/23 08:19 Enoxaparin 4
--- NOTE | 2023-11-21 16:55 | P.PNIM_ITS ---
Progress Note: A&P Assessment and Plan (1) Abdominal wall abscess: Code(s): L02.211 - Cutaneous abscess of abdominal wall Status: Acute Assessment and Plan: 11/18/23: * CT of the abdomen pelvis showed a 5.6 cm upper midline abdominal subcutaneous abscess with extension through the anterior abdominal wall along the anterior surface of the gastric fundus * Wound open and draining purulent and foul odored drainage * General surgery consulted * Patient was started on Zosyn and we added vancomycin today * Patient taken to the OR for I&D * White blood cell count 17.6 * Wound cultures pending * Continue pain and nausea control 11/19/23: * White blood cell count 2 17.6 * Continue Zosyn and vancomycin * Will add Flagyl today * General surgery following * Wound culture still pending 11/20/23: * White blood cell count down to 8.7 * Continue Zosyn, Flagyl, vancomycin * General surgery following * Wound culture today showing moderate Gram-positive cocci in clusters with few Gram-positive bacilli on preliminary read 11/21/2023: wound culture complete showing Citrobacter and klebsiella d/c Zosyn, Flagyl and vancomycin -start Cipro, and Flagyl (2) Normocytic anemia: Code(s): D64.9 - Anemia, unspecified Status: Acute Assessment and Plan: 11/18/23: * Hemoglobin 8.7, MCV 95.4 iron 33, ferritin 92.9, vitamin B12 604, folate 6.6 * Will check reticulocyte count 11/19/23: * Retic count 28.2 * Hemoglobin 8 .7 * Will start iron supplement today 11/20/23: * Continue with current treatment plan 11/21/2023: continue with above treatment plan (3) Chronic kidney disease, stage 3 (moderate): Code(s): N18.3 - Chronic kidney disease, stage 3 (moderate) Status: Acute Assessment and Plan: 11/18/23: * Creatinine 1.3, EGFR 41 * Baseline 1.1-1.3 * Continue to trend 11/19/23: * Creatinine 1.5 * Continue to trend 11/20/23: * Creatinine down to 1.2 * Back to baseline 11/21/2023: Serum creatinine continues at baseline -monitor daily BMP (4) Hypertension: Code(s): I10 - Essential (primary) hypertension Status: Acute Assessment and Plan: 11/18/23: * Blood pressures ranging 146/62 to 170/83 * Continue valsartan and amlodipine 11/19/23: * No change to current treatment plan 11/21/2023: continue home medication valsartan and amlodipine (5) Chronic obstructive pulmonary disease, unspecified: Qualifiers: COPD type: unspecified COPD Qualified Code(s): J44.9 - Chronic obstructive pulmonary disease, unspecified Code(s): J44.9 - Chronic obstructive pulmonary disease, unspecified Status: Acute Assessment and Plan: 11/18/23: * Continue albuterol inhaler q.6 hours p.r.n. 11/19/23: * No change to current treatment plan 11/21/2023: -continue home medication of ureteral inhaler q.6 hours p.r.n. (6) Back pain: Code(s): M54.9 - Dorsalgia, unspecified Status: Acute Assessment and Plan: 11/20/23: * Patient complaining of 9/10 lower back pain * Will get x-ray of thoracic and lumbar spine * Continue pain medication 11/21/2023: -X-ray lumbar spine reveals no acute osseous abnormality -X-ray thoracic spine no acute CS abnormality -continue pain medication management Plan Continue home medications: VTE Prophylaxis: Start SCDs, DC enoxaparin, due to ongoing bleeding to surgical site DIET: Heart healthy Anticipated hospital stay:
--- NOTE | 2023-11-21 16:55 | PM.IMPN ---
Progress Note: A&P Assessment and Plan (1) Abdominal wall abscess: Code(s): L02.211 - Cutaneous abscess of abdominal wall Status: Acute Assessment and Plan: 11/18/23: CT of the abdomen pelvis showed a 5.6 cm upper midline abdominal subcutaneous abscess with extension through the anterior abdominal wall along the anterior surface of the gastric fundus Wound open and draining purulent and foul odored drainage General surgery consulted Patient was started on Zosyn and we added vancomycin today Patient taken to the OR for I&D White blood cell count 17.6 Wound cultures pending Continue pain and nausea control 11/19/23: White blood cell count 2 17.6 Continue Zosyn and vancomycin Will add Flagyl today General surgery following Wound culture still pending 11/20/23: White blood cell count down to 8.7 Continue Zosyn, Flagyl, vancomycin General surgery following Wound culture today showing moderate Gram-positive cocci in clusters with few Gram-positive bacilli on preliminary read 11/21/2023: wound culture complete showing Citrobacter and klebsiella d/c Zosyn, Flagyl and vancomycin -start Cipro, and Flagyl (2) Normocytic anemia: Code(s): D64.9 - Anemia, unspecified Status: Acute Assessment and Plan: 11/18/23: Hemoglobin 8.7, MCV 95.4 iron 33, ferritin 92.9, vitamin B12 604, folate 6.6 Will check reticulocyte count 11/19/23: Retic count 28.2 Hemoglobin 8 .7 Will start iron supplement today 11/20/23: Continue with current treatment plan 11/21/2023: continue with above treatment plan (3) Chronic kidney disease, stage 3 (moderate): Code(s): N18.3 - Chronic kidney disease, stage 3 (moderate) Status: Acute Assessment and Plan: 11/18/23: Creatinine 1.3, EGFR 41 Baseline 1.1-1.3 Continue to trend 11/19/23: Creatinine 1.5 Continue to trend 11/20/23: Creatinine down to 1.2 Back to baseline 11/21/2023: Serum creatinine continues at baseline -monitor daily BMP (4) Hypertension: Code(s): I10 - Essential (primary) hypertension Status: Acute Assessment and Plan: 11/18/23: Blood pressures ranging 146/62 to 170/83 Continue valsartan and amlodipine 11/19/23: No change to current treatment plan 11/21/2023: continue home medication valsartan and amlodipine (5) Chronic obstructive pulmonary disease, unspecified: Qualifiers: COPD type: unspecified COPD Qualified Code(s): J44.9 - Chronic obstructive pulmonary disease, unspecified Code(s): J44.9 - Chronic obstructive pulmonary disease, unspecified Status: Acute Assessment and Plan: 11/18/23: Continue albuterol inhaler q.6 hours p.r.n. 11/19/23: No change to current treatment plan 11/21/2023: -continue home medication of ureteral inhaler q.6 hours p.r.n. (6) Back pain: Code(s): M54.9 - Dorsalgia, unspecified Status: Acute Assessment and Plan: 11/20/23: Patient complaining of 9/10 lower back pain Will get x-ray of thoracic and lumbar spine Continue pain medication 11/21/2023: -X-ray lumbar spine reveals no acute osseous abnormality -X-ray thoracic spine no acute CS abnormality -continue pain medication management Plan Continue home medications: VTE Prophylaxis: Start SCDs, DC enoxaparin, due to ongoing bleeding to surgical site DIET: Heart healthy Anticipated hospital stay: > 2 days Code Status: Full code Time Spent With Patient Time with patient: 25 - 35 minutes Subjective Date/time seen: 11/21/23 16:55 Interval history: Interval history: This is a 68-year-old female who presented to the hospital on 11/17/2023 for evaluation of a postoperative fluid. She was admitted to the hospital last month was small-bowel obstruction and underwent laparoscopic small-bowel resection with anastomosis in lysis of adhesion with release of small-bowel obstruction on 10/17/[address] Marshall. Workup in the
--- NOTE | 2023-11-21 18:58 | ECG_ITS ---
Test Date: 2023-11-21 19:10:24 Measurements Intervals [place] Rate: 56 P: 27 VA: 189 QRS: -42 QRSD: 102 T: 30 QT: 356 QTc: 346 Interpretive Statements SINUS BRADYCARDIA LEFT ANTERIOR SUPERIOR HEMIBLOCK VOLTAGE CRITERIA FOR LVH [MEETS CRITERIA IN ONE OF: R(aVL), S(V1), R(V5), R(V5/V6)+S(V1)] ABNORMAL ELECTROCARDIOGRAM NONSPECIFIC T-WAVE ABNORMALITY No previous ECG available for comparison Electronically Signed On 11-22-2023 08:40:08 CDT by Maury Peña M.D.
[2023-11-21 19:02] LABS: Glucose Point of Care 133 mg/dl (65-105)
--- NOTE | 2023-11-21 19:25 | ECG_ITS ---
Test Date: 2023-11-21 19:26:52 Measurements Intervals [place] Rate: 57 P: 34 NE: 191 QRS: -41 QRSD: 105 T: 39 QT: 441 QTc: 432 Interpretive Statements SINUS BRADYCARDIA LAFB VOLTAGE CRITERIA FOR LVH [MEETS CRITERIA IN ONE OF: R(aVL), S(V1), R(V5), R(V5/V6)+S(V1)] ABNORMAL ECG Electronically Signed On 11-23-2023 10:47:43 CDT by Christophe Willis M.D.
[2023-11-21 19:36] LABS: Hematocrit 27.6 % (37.0-47.0); Hemoglobin 8.5 g/dL (12.0-15.0); Mean Corpuscular HGB Conc 30.8 g/dl (32-36); Mean Corpuscular Hemoglobin 28.9 pg (26-34); Mean Corpuscular Volume 93.9 fl (80-100); Mean Platelet Volume 10.5 fl (7.4-10.4); Platelet Count Result 255 k/mm3 (150-375); Red Blood Count 2.94 M/mm3 (4.2-5.4); Red Cell Distribution Width 15.7 % (11.5-14.5); White Blood Count 9.9 K/mm3 (4.5-10.0)
[2023-11-21 19:51] LABS: CRP 1.1 mg/dL (<1.0)
[2023-11-21 19:59] LABS: Alanine Aminotransferase 21 U/L (6-35); Albumin Level 2.9 g/dL (3.5-5.1); Alkaline Phosphatase 83 U/L (38-126); Anion Gap 9 mmol/L (4-12); Aspartate Amino Transferase 29 U/L (14-36); Bilirubin,Total < 0.1 mg/dL (0.2-1.3); Blood Urea Nitrogen 17 mg/dL (7-17); Calcium 8.1 mg/dL (8.4-10.2); Carbon Dioxide 24 mmol/L (22-30); Chloride 108 mmol/L (98-107); Estimated CRCL calculation 33 ml/min; Estimated Glomerular Filt Rate 38; Glucose 132 mg/dL (65-110); Magnesium 1.9 mg/dL (1.6-2.3); Potassium 3.6 mmol/L (3.4-5.0); Sodium 141 mmol/L (137-145)
[2023-11-21 20:10] LABS: Troponin I < 0.012 ng/mL (0.000-0.034)
[2023-11-21] MEDS: ATORVASTATIN 40 MG TABLET 80 MG PO (21:02)
[2023-11-21] MEDS: CIPROFLOXACIN 500 MG TAB PO (21:02)
[2023-11-21] MEDS: AMANTADINE HCL 100 MG CAPSULE PO (21:02)
[2023-11-21] MEDS: ALBUTEROL SULFATE NEB 2.5 MG/3 ML INH 1.25 MG INHALATION (22:22)
[2023-11-21] MEDS: traZODone HCL 50 MG TABLET 100 MG PO (23:19)
[2023-11-22] VITALS (7 sets, daily range): BP systolic 188; BP diastolic 68; PULSE 55–80; RESP 18–20; TEMP 36.4; O2SAT 97–98
[2023-11-22] MEDS: metroNIDAZOLE 500 MG TABLET PO ×2 (05:45→13:55)
[2023-11-22] MEDS: HYDROcodone/acetaminophen (*CRX) 10-325 MG TABLET 1 TAB PO (05:45)
[2023-11-22] MEDS: FLUTICASONE/UMECLIDIN/VILANTER 100-62.5-25 MCG ELLIPTA 1 PUFF INHALATION (07:05)
[2023-11-22] MEDS: SERTRALINE HCL 50 MG TABLET 150 MG PO (08:32)
[2023-11-22] MEDS: carvediloL 25 MG TABLET PO (08:32)
[2023-11-22] MEDS: PANTOPRAZOLE 40 MG TABLET PO (08:32)
[2023-11-22] MEDS: TOPIRAMATE 25 MG TABLET 50 MG PO (08:33)
[2023-11-22] MEDS: VALSARTAN 160 MG TABLET 320 MG PO (08:33)
[2023-11-22] MEDS: FERROUS SULFATE 325 MG TABLET DR PO (08:33)
[2023-11-22] MEDS: CHOLECALCIFEROL 1,000 UNITS TABLET 1000 UNITS PO (08:33)
[2023-11-22] MEDS: CIPROFLOXACIN 500 MG TAB PO (08:33)
[2023-11-22] MEDS: amLODIPine BESYLATE 10 MG TABLET PO (08:33)
[2023-11-22] MEDS: CLOPIDOGREL BISULFATE 75 MG TABLET PO (08:33)
[2023-11-22] MEDS: DOCUSATE SODIUM 100 MG CAPSULE 200 MG PO (08:33)
[2023-11-22] MEDS: ISOSORBIDE MONONITRATE 60 MG TAB.ER.24H 120 MG PO (08:33)
[2023-11-22] MEDS: NICOTINE (*PBKC) 21 MG PATCH 1 PATCH TRANSDERM (08:33)
[2023-11-22] MEDS: ASPIRIN 81 MG ENTERIC TABLET PO (08:33)
[2023-11-22] MEDS: MECLIZINE HCL 25 MG TABLET PO (08:38)
[2023-11-22 09:27] LABS: Basophils Percent Auto 0.4 % (0.2-1.2); Eosinophils Absolute Auto 0.3 K/mm3 (0-0.3); Eosinophils Percent Auto 2.6 % (0-4.4); Hematocrit 31.8 % (37.0-47.0); Hemoglobin 9.5 g/dL (12.0-15.0); Immature Granulocyte Absolute 0.09 K/mm3 (0.00-0.031); Immature Granulocyte Percent A 0.8 % (0-0.5); Lymphocytes Percent Auto 19.6 % (18.3-44.2); Mean Corpuscular HGB Conc 29.9 g/dl (32-36); Mean Corpuscular Hemoglobin 28.1 pg (26-34); Mean Corpuscular Volume 94.1 fl (80-100); Mean Platelet Volume 10.6 fl (7.4-10.4); Monocytes Percent Auto 9.2 % (2.6-8.5); Neutrophils Absolute Auto 7.2 K/mm3 (1.3-6.7); Neutrophils Percent Auto 67.4 % (45.5-73.1); Platelet Count Result 273 k/mm3 (150-375); Red Blood Count 3.38 M/mm3 (4.2-5.4); Red Cell Distribution Width 15.7 % (11.5-14.5); White Blood Count 10.7 K/mm3 (4.5-10.0)
[2023-11-22 09:34] LABS: Alanine Aminotransferase 21 U/L (6-35); Albumin Level 3.1 g/dL (3.5-5.1); Alkaline Phosphatase 86 U/L (38-126); Anion Gap 8 mmol/L (4-12); Aspartate Amino Transferase 27 U/L (14-36); Bilirubin,Total 0.2 mg/dL (0.2-1.3); Blood Urea Nitrogen 16 mg/dL (7-17); Calcium 8.5 mg/dL (8.4-10.2); Carbon Dioxide 25 mmol/L (22-30); Chloride 108 mmol/L (98-107); Estimated CRCL calculation 38 ml/min; Estimated Glomerular Filt Rate 45; Glucose 79 mg/dL (65-110); Potassium 3.3 mmol/L (3.4-5.0); Sodium 141 mmol/L (137-145)
--- NOTE | 2023-11-22 11:23 | PM.DS ---
DS: Admitting Diagnosis Discharge Date 11/22/23 Admitting Diagnosis Abdominal wall abscess Normocytic anemia Chronic kidney disease stage 3 Hyperglycemia Hypertension Hyperlipidemia COPD Parkinson's disease Tobacco abuse Coronary artery disease DS: Discharge Diagnosis Discharge Diagnosis (1) Abdominal wall abscess: Code(s): L02.211 - Cutaneous abscess of abdominal wall Status: Acute (2) Normocytic anemia: Code(s): D64.9 - Anemia, unspecified Status: Acute (3) Chronic kidney disease, stage 3 (moderate): Code(s): N18.3 - Chronic kidney disease, stage 3 (moderate) Status: Acute (4) Hypertension: Code(s): I10 - Essential (primary) hypertension Status: Acute (5) Chronic obstructive pulmonary disease, unspecified: Qualifiers: COPD type: unspecified COPD Qualified Code(s): J44.9 - Chronic obstructive pulmonary disease, unspecified Code(s): J44.9 - Chronic obstructive pulmonary disease, unspecified Status: Acute (6) Back pain: Code(s): M54.9 - Dorsalgia, unspecified Status: Acute DS: Summary Hospital Course Reason for hospitalization: Abdominal wall abscess Normocytic anemia Chronic kidney disease stage 3 Hyperglycemia Hypertension Hyperlipidemia COPD Parkinson's disease Tobacco abuse Coronary artery disease Hospital Course: This is a 68-year-old female who presented to the hospital on 11/17/2023 for evaluation of a postoperative fluid. She was admitted to the hospital last month was small-bowel obstruction and underwent laparoscopic small-bowel resection with anastomosis in lysis of adhesion with release of small-bowel obstruction on 10/17/[address] Marshall. Workup in the hospital included an abdomen pelvis CT with contrast showing mild esophagitis/gastritis, 5.6 cm upper midline abdominal subcutaneous abscess which extends through the anterior abdominal wall along the anterior surface of the gastric fundus. Initial labs showed a white blood cell count of 17.8, RBC 3.28, hemoglobin 9.6, creatinine 1.4, EGFR 38, lipase 46, vitamin B12 604, folate 6.6. UA was obtained and showed 1+ urine protein, trace ketones, otherwise unremarkable. Wound cultures were obtained and are pending. Patient was given 1 L of normal saline, Zofran, Dilaudid, Zosyn in the ED. General surgery was consulted today was taken to the OR for incision and drainage of a complex abdominal wall abscess on 11/18/2023. Wound cultures were obtained showing Klebsiella oxytocia an Citrobacter freundii. Patient was transitioned to Cipro and Flagyl. Labs this morning were essentially unchanged. Patient is stable for discharge at this time. She will need to follow up with General surgery in 2 weeks. She will need to finish her course of antibiotics. Final diagnosis: Abdominal wall abscess, status post I&D of abdominal wall abscess Status at Discharge Cognitive/behavioral status at discharge: Alert oriented x4 Functional status at discharge: independent ambulation Overall status at discharge: patient is progressing back to baseline Time Spent with Patient Time attestation: Total time spent providing and/or coordinating discharge services: Time spent: Greater than 30 minutes Exam Narrative: General: In no acute distress Cardiac: Normal S1 and S2. Murmur noted, no gallops or friction rubs, peripheral pulses intact. Respiratory: Lungs clear to auscultation, no adventitious lung sounds, currently on room air Gastrointestinal: soft, non-distended, non-tender, normoactive bowel sounds. : voiding without difficulty. Spine: Lower back pain Skin: Midline incision with packed wound dressing in place Neuro: Alert and oriented x4 DS: Data Data Completed and Pending Completed studies during hospitalization: Lumbar spine x-ray Thoracic spine x-ray Abdomen pelvis CT Pending studies at discharge: None Labs on day of discharge: Labs from last 24 hours
--- NOTE | 2023-11-22 12:22 | PM.PNGS ---
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 On Cipro and Flagyl. Continue daily packing changes. OK to discharge home from surgical standpoint. Subjective Subjective Date/Time Seen: 11/22/23 12:22 Interval history: Doing well today. No fevers. Pain improving. Exam GI: Other: Upper abdominal wound packing removed. Mostly bloody drainage. Erythema improved. Objective Data Vital Signs Vital Signs: Vital Signs - 24 hr 11/21/23 14:45 11/21/23 18:55 11/21/23 19:46 Temperature 36.6 C Pulse Rate 57 L 56 L Respiratory Rate 16 22 H Blood Pressure 140/60 184/78 H 155/60 H Pulse Oximetry 98 98 Oxygen Delivery 11/21/23 19:47 11/21/23 19:47 11/21/23 21:02 Temperature Pulse Rate 57 L Respiratory Rate Blood Pressure 172/65 H 148/70 H Pulse Oximetry Oxygen Delivery 11/21/23 21:20 11/21/23 22:23 11/21/23 22:29 Temperature 36.8 C Pulse Rate 59 L 56 L 57 L Respiratory Rate 20 16 16 Blood Pressure 148/72 H Pulse Oximetry 98 Oxygen Delivery 11/21/23 20:00 11/22/23 00:00 11/21/23 23:10 Temperature Pulse Rate 56 L 58 L Respiratory Rate 17 Blood Pressure Pulse Oximetry Oxygen Delivery Autopap 11/22/23 04:00 11/22/23 06:00 11/22/23 07:03 Temperature 36.4 C Pulse Rate 56 L 61 80 Respiratory Rate 20 18 Blood Pressure 188/68 H Pulse Oximetry 98 97 Oxygen Delivery Room Air 11/22/23 07:03 11/22/23 08:32 11/22/23 08:30 Temperature Pulse Rate 80 77 Respiratory Rate 18 Blood Pressure Pulse Oximetry Oxygen Delivery Room Air Intake/Output Intake/Output: Intake & Output 11/19/23 11/20/23 11/21/23 11/22/23 23:59 23:59 23:59 23:59 Intake Total 3170 1780 1050 440 Output Total 5 Balance 3165 1780 1050 440 Meds/Results Medications: Active Medications Generic Name Dose Route Start Last Admin Trade Name Freq PRN Reason Stop Dose Admin Hydrocodone Bitart/Acetaminophen 1 tab 11/18/23 11:33 Hydrocodone/Acetaminophen (*Crx) 5-325 Mg Tablet PO Q4H PRN Pain Rated 4-6 Hydrocodone Bitart/Acetaminophen 1 tab 11/18/23 11:33 11/22/23 05:45 Hydrocodone/Acetaminophen (*Crx) 10-325 Mg Tablet PO 1 tab Q4H PRN Administration Pain Rated 7-10 Albuterol 1.25 mg 11/17/23 21:39 11/21/23 22:22 Albuterol Sulfate Neb 2.5 Mg/3 Ml Inh INHALATION 1.25 mg Q6H PRN Administration Shortness Of Breath Or Wheezing Albuterol 2 puff 11/17/23 21:12 Albuterol Sulfate (*Sp) Aerosol 1 Puff INHALATION Q4H PRN Shortness Of Breath Amantadine HCl 100 mg 11/17/23 21:40 11/21/23 21:02 Amantadine Hcl 100 Mg Capsule PO 100 mg QHS LORENZO Administration Amlodipine Besylate 10 mg 11/18/23 09:00 11/22/23 08:33 Amlodipine Besylate 10 Mg Tablet PO 10 mg DAILY LORENZO Administration Aspirin 81 mg 11/19/23 09:00 11/22/23 08:33 Aspirin 81 Mg Enteric Tablet PO 81 mg DAILY LORENZO Administration Atorvastatin Calcium 80 mg 11/17/23 21:45 11/21/23 21:02 Atorvastatin 40 Mg Tablet PO 80 mg QHS LORENZO Administration Carvedilol 25 mg 11/17/23 21:15 11/22/23 08:32 Carvedilol 25 Mg Tablet PO 25 mg Q12HR LORENZO Administration Ciprofloxacin 500 mg 11/21/23 21:00 11/22/23 08:33 Ciprofloxacin 500 Mg Tab PO 500 mg
[2023-11-22] MEDS: HYDROcodone/acetaminophen (*CRX) 5-325 MG TABLET 1 TAB PO (12:44)
== END 2023-11-22 14:30 | disposition home health service (06) | DRG 863 ==
LOC: ANHED 16:49 → ANH3MEDSUR 17:36
PROVIDERS: Nurse Practitioner; Nurse Practitioner Family; Physician Assistant; Student in an Organized Health Care Education/Training Program; Surgery; Admitting Provider General Practice; Emergency Provider Emergency Medicine; PCP Family Medicine; Visit Provider Nurse Practitioner Acute Care
DX: T81.41XA Infection following a procedure, superficial incisional surgical site, initial encounter (principal); L02.211 Cutaneous abscess of abdominal wall; L76.32 Postprocedural hematoma of skin and subcutaneous tissue following other procedure; I25.10 Atherosclerotic heart disease of native coronary artery without angina pectoris; I12.9 Hypertensive chronic kidney disease with stage 1 through stage 4 chronic kidney disease, or unspecified chronic kidney disease; N18.30 Chronic kidney disease, stage 3 unspecified; J44.9 Chronic obstructive pulmonary disease, unspecified; D64.9 Anemia, unspecified; E78.5 Hyperlipidemia, unspecified; B96.89 Other specified bacterial agents as the cause of diseases classified elsewhere; K31.84 Gastroparesis; K76.89 Other specified diseases of liver; M50.30 Other cervical disc degeneration, unspecified cervical region; M51.36 Other intervertebral disc degeneration, lumbar region; M06.042 Rheumatoid arthritis without rheumatoid factor, left hand; M54.59 Other low back pain; M06.041 Rheumatoid arthritis without rheumatoid factor, right hand; H81.09 Meniere's disease, unspecified ear; G24.01 Drug induced subacute dyskinesia; G47.33 Obstructive sleep apnea (adult) (pediatric); G20.A1 Parkinson's disease without dyskinesia, without mention of fluctuations; F12.90 Cannabis use, unspecified, uncomplicated; F17.210 Nicotine dependence, cigarettes, uncomplicated; F41.9 Anxiety disorder, unspecified; F31.9 Bipolar disorder, unspecified; Z85.3 Personal history of malignant neoplasm of breast; Z90.2 Acquired absence of lung [part of]; Z79.82 Long term (current) use of aspirin; Z99.81 Dependence on supplemental oxygen; Z86.010 Personal history of colon polyps; Z95.5 Presence of coronary angioplasty implant and graft; Z87.11 Personal history of peptic ulcer disease
CPT/HCPCS: 36415; 72070; 72100; 74177; 80048; 80053; 80202; 81001; 82565; 82607; 82728; 82746; 82948; 83036; 83540; 83550; 83605; 83690; 83735; 84484; 85025; 85027; 85046; 85610; 85730; 86140; 87070; 87077; 87186; 87205; 93005; 94002; 94640; 96374; 96375; 99285; A9270; J1170; J1650; J2405; J2543; J3370; J7030; Q9967

== ENCOUNTER 2023-12-15 13:09 | Outpatient (CLI) | payer MEDICARE, MEDICAID, SELFPAY ==
--- NOTE | ~2023-12-15 | US_ITS ---
EXAMINATION: US soft tissue LE DATE: 12/15/2023 15:03 INDICATION: Strain of muscle, fascia and tendon. Palpable lumps at the left knee TECHNIQUE: Multiple grayscale and Doppler ultrasound images of the region of concern at the posterior left knee were obtained. COMPARISON: None FINDINGS: No abnormal masses or fluid collections identified at the left popliteal fossa the site for the repor wen palpable abnormalities. At the side of the second palpable abnormality at the lateral left knee t here is a small amount of anechoic edema extending between the normal-appearing lobules of echogenic subcutaneous fat. No discrete masses or loculated fluid collections identified. IMPRESSION: 1. Small focus of subcutaneous edema at the site of the palpable abnormality at the lateral left knee . No correlate for the palpable abnormality at the posterior left knee with no discrete masses or loc ulated fluid collections identified. Reviewed, dictated and finalized at location B. IMPRESSION: 1. Small focus of subcutaneous edema at the site of the palpable abnormality at the lateral left knee. No correlate for the palpable abnormality at the screen maker ior left knee with no discrete masses or loculated fluid collections identified .
--- NOTE | ~2023-12-15 | US_ITS ---
Soft tissue right lower extremity ULTRASOUND Ordering provider: Gela Rios APRN History: . swelling behind knee . Comparison: None. FINDINGS/impression: Increased echogenicity area also seen in the right knee posteriorly with fluid seen inside this area. This is most likely a lipoma. Focal area of infection cannot. Clinical correlation advised. Reviewed, dictated and finalized at location A.
== END 2023-12-15 13:10 | disposition home or self-care (01) ==
PROVIDERS: PCP Family Medicine; Visit Provider Nurse Practitioner Family
DX: R22.42 Localized swelling, mass and lump, left lower limb (principal); S46.111A Strain of muscle, fascia and tendon of long head of biceps, right arm, initial encounter; X58.XXXA Exposure to other specified factors, initial encounter
CPT/HCPCS: 76882

== ENCOUNTER 2024-01-20 15:03 | Outpatient (CLI) | payer MEDICARE, MEDICAID, SELFPAY ==
[2024-01-20 15:45] LABS: Hematocrit 38.9 % (37.0-47.0); Hemoglobin 11.8 g/dL (12.0-15.0); Mean Corpuscular HGB Conc 30.3 g/dl (32-36); Mean Corpuscular Hemoglobin 28.7 pg (26-34); Mean Corpuscular Volume 94.6 fl (80-100); Platelet Count Result 182 k/mm3 (150-375); Red Blood Count 4.11 M/mm3 (4.2-5.4); Red Cell Distribution Width 16.2 % (11.5-14.5); White Blood Count 6.9 K/mm3 (4.5-10.0)
[2024-01-20 15:58] LABS: Alanine Aminotransferase 24 U/L (6-35); Albumin Level 3.4 g/dL (3.5-5.1); Alkaline Phosphatase 105 U/L (38-126); Anion Gap 6 mmol/L (4-12); Aspartate Amino Transferase 32 U/L (14-36); Bilirubin,Total 0.2 mg/dL (0.2-1.3); Blood Urea Nitrogen 28 mg/dL (7-17); Calcium 8.3 mg/dL (8.4-10.2); Carbon Dioxide 29 mmol/L (22-30); Chloride 108 mmol/L (98-107); Cholesterol 82 mg/dL (0-200); Estimated Glomerular Filt Rate 38; Glucose 122 mg/dL (65-110); HDL Direct 23 mg/dL; Potassium 3.9 mmol/L (3.4-5.0); Sodium 143 mmol/L (137-145); Triglycerides 145 mg/dL (<150)
[2024-01-20 16:20] LABS: LDL Cholesterol Direct < 30 mg/dL
[2024-01-20 16:21] LABS: Vitamin D 25 Hydroxy 71.4 ng/mL
== END 2024-01-20 15:04 | disposition home or self-care (01) ==
PROVIDERS: PCP Family Medicine; Visit Provider Family Medicine
DX: E66.01 Morbid (severe) obesity due to excess calories (principal); E21.3 Hyperparathyroidism, unspecified; E78.5 Hyperlipidemia, unspecified; H81.09 Meniere's disease, unspecified ear; I12.9 Hypertensive chronic kidney disease with stage 1 through stage 4 chronic kidney disease, or unspecified chronic kidney disease; N18.30 Chronic kidney disease, stage 3 unspecified; R16.0 Hepatomegaly, not elsewhere classified; M35.00 Sjogren syndrome, unspecified; K76.89 Other specified diseases of liver
CPT/HCPCS: 36415; 80053; 80061; 82306; 85027

== ENCOUNTER 2024-02-19 14:28 | Outpatient (CLI) | payer MEDICARE, MEDICAID, SELFPAY ==
--- NOTE | ~2024-02-19 | XR_ITS ---
EXAMINATION: XR chest 2V DATE: 02/19/2024 15:05 INDICATION: Cough. TECHNIQUE: Frontal and lateral views of the chest were obtained. COMPARISON: Chest 2 views 09/15/2023, CT abdomen and pelvis 11/17/2023 FINDINGS: Calcified pulmonary nodules are consistent with old granulomatous disease. No pleural effus ion or pneumothorax. The heart size is normal. Breast implants are noted. There are surgical clips in left axilla. IMPRESSION: 1. No acute cardiopulmonary disease. Reviewed, dictated and finalized at location A. EDITOR
== END 2024-02-19 14:29 | disposition home or self-care (01) ==
PROVIDERS: PCP Family Medicine; Visit Provider Nurse Practitioner Family
DX: R05.9 Cough, unspecified (principal); R06.02 Shortness of breath
CPT/HCPCS: 71046

== ENCOUNTER 2024-03-16 13:21 | Outpatient (CLI) | payer MEDICARE, MEDICAID, SELFPAY ==
--- NOTE | ~2024-03-16 | US_ITS ---
US breast LT limited 03/16/2024 13:59 Indication: Chest wall pain. Status post bilateral mastectomy. Left chest wall discolored and sore in the axilla. Procedure: High-resolution Limited ultrasound of the left chest wall in the area of palpable concern Comparison: No prior studies for comparison. Findings: Normal heterogeneous soft tissues without focal solid or cystic mass. Impression: 1: Normal soft tissue ultrasound of the left chest wall. No discrete mass or fluid collection. BI-RADS CATEGORY 1 - NEGATIVE Reviewed, dictated and finalized at location B. ERSITY RELATIONS RECRUITER Impression: 1: Normal soft tissue ultrasound of the left chest wall. No discrete mass or fl uid collection. BI-RADS CATEGORY 1 - NEGATIVE
== END 2024-03-16 13:22 | disposition home or self-care (01) ==
LOC: ANHIMG 13:22
PROVIDERS: PCP Family Medicine; Visit Provider Family Medicine
DX: Z85.3 Personal history of malignant neoplasm of breast (principal)
CPT/HCPCS: 76642

== ENCOUNTER 2024-07-14 16:21 | Emergency (ER) | payer OTHER, MEDICARE, MEDICAID, SELFPAY ==
--- OUTSIDE RECORDS SUMMARY | 2024-07-14 16:24 | XMS_ITS | Encounter Summary ---
Author Organization [facility] Address [address] [place] [address] Care Team Providers Care Vp Publisher Development Name Role Phone Saul Marcelino MD Primary Care Provider [phone] None, Physician Primary Care Provider Unavailabl e Saul Marcelino MD Primary Care Provider [phone] Reason for Visit * Reason Onset Date Comments Update 08/17/2023 Encounter Details Date Type Department Care Team (Late st Contact Info) Description 08/17/2023 Telephone [facility] - Centralized Scheduling [address] [place] [address] Ness Burton, AuD [address] [facility] [address] [place] [address] Update Social History Tobacco Use Types Packs/Day Years Used Date Smoking Tobacco: Every Day Cigarettes 0.2 60.3 Started: 1963 Smokeless Tobacco: Never Comments:Pack of cigarettes lasts about a week Alcohol Use Standard Drinks/Week Comments Not Currently 0 (1 standard drink = 0.6 oz pure alcohol) prior 2-3 times a month, quit 1989 AUDIT-C Answer Date Recorded Q1: How often do you have a drink containing alcohol? Never 08/17/2023 Q2: How many drinks containi ng alcohol do you have on a typical day when you are drinking? Patient does not drink Q3: How often do you have si x or more drinks on one occasion? Never 08/17/2023 Education Answer Date Recorded What is the highest level of school you have completed or the highest degree you have received? 11th grade 05/14/2023 Sex and Gender Information Value Date Recorded Sex Assigned at Not on file Gender Identity Not on file Sexual Orientation Not on file documented as of this encounter Functional Status Functional Status Response Date of Assess ment Is person deaf or have serious hearing difficult y? Yes 08/17/2023 Is person blind or have serious difficulty seein g? No 08/17/2023 Does person have serious dif ficulty walking/climbing stairs? Yes 08/17/2023 Does person have difficulty dressing/bathing? No 08/17/2023 Does person have difficulty doing errands alone? Yes 08/17/2023 Cognitive Status Response Date of Assessm ent Does person have difficulty concentrating/remembering/making decisions? Yes 08/17/2023 documented as of this encounter Miscellaneous Notes * Telephone Encounter - Mindy Tristan - 08/17/2023 2:35 PM CDT Pt is calling back after she says someone called and asked her to change her appt for tomorrow withJohne. Pt says that she can not make any changes due to her transportation. She plans to be here tomorrow at 3:30pm. Her phone: [phone] documented in this encounter Plan of Treatment Upcoming Encounters Date Type Department Care Team (Late st Contact Info) Description 08/25/2024 3:00 PM CDT Office Visit [facility] - Hematology/Oncology [address] [place] [address] Aubree Thomas MD [address] [place] [address] 09/14/2024 2:00 PM CDT Office Visit [facility] - Neurology [address] [place] [address], [place] [phone] Gary Virgen APRN-RN [facility] [address] [place] [address] [place] [phone] 10/17/2024 2:00 PM CDT Office Visit [facility] - Pulmonology [address] [place] [phone] Kunal Lennon MD [address] [place] [address] 2L [place] [address] 11/02/2024 1:00 PM CDT Appointment [facility] OP DRAW STATION [address] [place] [phone] 11/02/2024 2:00 PM CDT Office Visit [facility] - Nephrology [address] [place] [phone] Adarsh Menendez MD [address] [place] [address] 3L [place] [phone] 11/09/2024 12:30 PM CDT Office Visit [facility] - GI [address] [place] [phone] Raffaele Beck MD [address] [place] [address] 2L [place] [address] 11/17/2024 3:00 PM CDT Office Visit [facility] - GI [address] [place] [phone] Raffaele Beck MD [address] [place] [address] 2L [place] [address] 11/21/2024 2:00 PM CDT Office Visit [facility] - Sleep Services [address] [place] [address] Maura Simmons, APNP-RN [facility] [address] [place] [address] 2L DIV OF PULMONARY/[place] [address] 02/06/2025 2:00 PM DATA SERVICES DEVELOPER Appointment [facility] CAT SCAN [address] [place] [address] Beau Myrick MD [address] [facility] 2L DIV OF PULMONARY/[place] [address] documented as of this encounter Goals Goal Patient Goal Type Associated Problems Recent Progress Patient-Stated? Author Medication Management General On track( 025 4:47 PM DATA SERVICES DEVELOPER) Radha De La Fuente RN Note: Expected end date: Ongoing Interventions: Take all medications as prescribed Let your doctor know right away about any changes in your medications Make sure to request a refill of your medication at least one week prior to your last dose documented as of this encounter Visit Diagnoses Not on filedocumented in this encounter Care Teams Vp Publisher Development Relationship Specialty Start Date End Date Saul Marcelino MD [address] [place] [phone] PCP - General Family Medicine 09/17/22 02/09/24 None, Physician [address] [place] [address] PCP - General 02/10/24 04/19/24 Saul Marcelino MD [address] [place] [phone] PCP - General Family Medicine 04/20/24 documented as of this encounter
--- OUTSIDE RECORDS SUMMARY | 2024-07-14 16:24 | XMS_ITS | Clinical Summary ---
Author Organization [facility] Medical Office Building A Address [address] [place] [address] Care Team Providers Care Staff Accountant Name Role Phone Dontae Min DO Primary Care Provider [phone] Allergies Active Allergy Reactions Criticality Noted Date Comments Adhesive Rash Medium 12/20/2019 Cyclobenzaprine Shortness of breath,Other (See comments),Dizziness High 11/05/2018 funny feelings in legs and arms Shock to legs Fluoxetine Rash,Unknown Medium 12/08/2023 Tetanus And Diphtheria Toxoids Other (See comments),Unknown Low 09/26/2022 Tetanus Vaccines And Toxoid Rash Medium Medications amLODIPine (NORVASC) 10 mg tabletIndications: hypertension Take 1 tablet (10 mg total) by mouth every morning 02/27/20 20 Active lisinopriL (PRINIVIL,ZESTRIL) 30 mg tabletIndications: hypertension Take 40 mg by mouth every morning 12/27/19 20 Active buPROPion XL (WELLBUTRIN XL) 150 mg 24 hr tabletIndications: mood Take 1 tablet (150 mg total) by mouth every morning 02/10/20 20 Active risperiDONE (RisperDAL) 3 mg tabletIndications: mood Take 1 tablet (3 mg total) by mouth nightly 02/27/20 20 Active nortriptyline (PAMELOR) 10 mg capsuleIndications :sleep, dizziness Take 1 capsule (10 mg total) by mouth nightly 02/03/20 20 Active albuterol HFA (PROVENTIL HFA,VENTOLIN HFA,PROAIR HFA) 90 mcg/actuation inhaler Inhale 1-2 puffs every 4 (four) hours as needed (PUFF 2 INHALATIONS Q 4-6 H PRF SHORTNESS OF BREATH OR WHEEZING) 02/14/20 20 Active HYDROcodone-acetam inophen (NORCO) 10-325 mg per tabletIndications: Pain Take 1 tablet by mouth every 6 (six) hours 02/24/20 20 Active fluticasone-umecli din-vilanter (Trelegy Ellipta) 100-62.5-25 mcg inhalerIndications :Bronchospasm Prevention with COPD Inhale 1 puff every morning Active levalbuterol (XOPENEX) 1.25 mg/3 mL nebulizer solution Take by nebulization 3 (three) times a day 11/03/19 21 Active methyl salicylate/menth/c amph (SALONPAS TOP)Indications:pa in Apply 1 patch topically as needed Active docusate sodium (COLACE) 100 mg capsuleIndications :constipation Take 1 capsule (100 mg total) by mouth 2 (two) times a day 30 capsule 11/30/19 21 Active Additional Information Patient not taking.Reported on 09/01/2023 cholecalciferol (VITAMIN D-3) 25 mcg (1,000 unit) tablet Take 1 tablet (1,000 Units total) by mouth daily 30 tablet 11 12/15/19 21 Active Oysco 500/D 500 mg(1,250mg) -200 unit per tablet Take 2 tablets by mouth daily 12/21/19 21 Active benztropine (COGENTIN) 0.5 mg tablet 03/19/[address] (CYMBALTA) 60 mg capsule Take 1 capsule (60 mg total) by mouth daily Active ferrous sulfate 325 mg (65 mg of elemental iron) tablet Take 1 tablet (325 mg total) by mouth daily 03/12/20 22 Active linaCLOtide (Linzess) 145 mcg capsule Take 1 capsule (145 mcg total) by mouth daily before breakfast 09/22/19 22 Active omeprazole (PriLOSEC) 40 mg capsule Take 1 capsule (40 mg total) by mouth daily before breakfast 09/11/19 22 Active ondansetron (ZOFRAN) 4 mg tablet 03/19/20 22 Active sertraline (ZOLOFT) 100 mg tablet 03/19/20 22 Active valsartan (DIOVAN) 160 mg tablet Take 1 tablet (160 mg total) by mouth daily 03/12/20 22 Active albuterol 2.5 mg /3 mL (0.083 %) nebulizer solution 3 mL (2.5 mg total) 08/11/19 24 Active atorvastatin (LIPITOR) 80 mg tablet Take 1 tablet (80 mg total) by mouth nightly 08/17/19 24 Active carvediloL (COREG) 25 mg tablet Take 1 tablet (25 mg total) by mouth 2 (two) times a day with meals 07/16/19 24 Active Austedo 12 mg 1.5 tablets (18 mg total) 08/04/19 24 Active doxazosin (CARDURA) 4 mg tablet Take 1 tablet (4 mg total) by mouth nightly 06/24/19 24 Active isosorbide mononitrate ER (IMDUR) 60 mg 24 hr tablet Take 2 tablets (120 mg total) by mouth daily 07/13/19 24 Active amantadine (SYMMETREL) 100 mg capsule Take 1 capsule (100 mg total) by mouth 2 (two) times a day Active aspirin 81 mg enteric coated tablet Take 1 tablet (81 mg total) by mouth daily Active clopidogreL (PLAVIX) 75 mg tablet Take 1 tablet (75 mg total) by mouth daily Active loratadine 10 mg capsule Take by mouth Active meclizine (ANTIVERT) 25 mg tablet Take 1 tablet (25 mg total) by mouth 3 (three) times a day as needed for dizziness Active nitroglycerin (NITRODUR) 0.4 mg/hr Place 1 patch on the skin daily Active ondansetron ODT (ZOFRAN-ODT) 4 mg disintegrating tablet Take 1 tablet (4 mg total) by mouth every 8 (eight) hours as needed for nausea or vomiting Active topiramate (TOPAMAX) 25 mg tablet Take 1 tablet (25 mg total) by mouth 2 (two) times a day Active traZODone (DESYREL) 100 mg tablet Take 1 tablet (100 mg total) by mouth nightly Active varenicline tartrate (CHANTIX) 1 mg tabletIndications: Smoking Cessation Take 1 tablet (1 mg total) by mouth 2 (two) times a day Take with full glass of water. Active deutetrabenazine 12 mg tablet extended release 24 hr Take 12 mg by mouth 2 (two) times a day Active cefpodoxime (VANTIN) 200 mg tablet Take 1 tablet (200 mg total) by mouth 2 (two) times a day 11/09/19 Active ciprofloxacin (CIPRO) 500 mg tablet Take 1 tablet (500 mg total) by mouth 2 (two) times a day 11/22/19 24 Active indapamide (LOZOL) 1.25 mg tablet Take 1 tablet (1.25 mg total) by mouth daily 11/28/19 24 Active metroNIDAZOLE (FLAGYL) 500 mg tablet Take 1 tablet (500 mg total) by mouth 2 (two) times a day 11/22/[address] (PROTONIX) 40 mg EC tablet Take 1 tablet (40 mg total) by mouth 2 (two) times a day 10/05/19 24 Active predniSONE (DELTASONE) 20 mg tablet Take 2 tablets (40 mg) by mouth daily 09/15/19 24 Active Active Problems Problem Noted Date Diagnosed Date Renal disorder 12/08/2023 Overview (12/08/2023): Kidney failure Generalized anxiety disorder with panic attacks 05/14/2023 Leg cramps 05/14/2023 BERTA (obstructive sleep apnea) 05/14/2023 PND (paroxysmal nocturnal dyspnea) 05/14/2023 Restless legs syndrome (RLS) 05/14/2023 Stage 3b chronic kidney disease 05/14/2023 Cystic disease of liver 09/18/2022 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 [place] heart with stable angina pectoris 09/17/2022 Nontoxic multinodular goiter 12/28/2020 Assessment & Plan (12/28/2020 2:13 PM CDT): S/p right hemithyroidectomy on 11/28/20 Benign pathology Patient is clinically euthyroid. Plan: Patient will have TSH checked in 2 month Follow up with me if needed. MCI (mild cognitive impairment) 12/05/2020 Other secondary parkinsonism 12/05/2020 Hyperparathyroidism 08/14/2020 Assessment & Plan (12/28/2020 2:09 PM CDT): S/p surgical removal of right upper and lower parathyroid glans on 11/28/20 Post operative calcium was normal at 8.7 on 12/14/20 Plan: Continue calcium and vitamin D as directed by Dr. Baumann She will have levels checked again in March. Assessment & Plan (08/14/2020 3:10 PM CDT): Detected on labs on 03/09/20 Calcium of 11.6 Creatinine of 1.5 Workup on 03/28 revealed : Calcium 10.6 GFR 41 PTH 262 24hr urine calcium of 208 C/w primary hyperparathyroidism last calcium level 11.6 and PTH 197 on 08/10/20 Plan: The diagnosis reviewed with patient Patient now has indication for parathyroid surgery due to calcium > 11.2 Discussed with patient complications of high calcium Refer patient to surgeon for possible parathyroidectomy Patient understands and agrees with above plan. Essential hypertension 03/15/2020 Assessment & Plan (04/26/2020 3:09 PM MYSTERY SHOPPER): Controlled with medication including Lasix CKD - continue medication per PCP Assessment & Plan (03/15/2020 3:58 PM MYSTERY SHOPPER): Controlled with medication including Lasix CKD - continue medication per PCP Mixed hyperlipidemia 03/15/2020 Hypercalcemia 03/15/2020 Assessment & Plan (04/26/2020 3:09 PM MYSTERY SHOPPER): Detected on labs on 03/09/20 Calcium of 11.6 Creatinine of 1.5 Patient asymptomatic, except for chronic constipation Labs on 03/28 Calcium 10.p GFR 41 PTH 262 This is most probably hyperparathyroidism Plan: Obtain copy of recent urine test Stay off calcium and vitamin D The diagnosis explained to patient The disease can be monitored if calcium stayed below 11.2 Otherwise she will need parathyroid surgery. We will continue to monitor calcium and kidney functions Assessment & Plan (03/15/2020 3:57 PM MYSTERY SHOPPER): Detected on recent labs on 03/09/20 Calcium of 11.6 Creatinine of 1.5 Patient asymptomatic, but on calcium and vitamin D supplements. Differential diagnosis would include parathyroid disease, hypocalcuric hypercalcemia, or less likely malignancy. Plan: Discontinue calcium and vitamin D We will check labs in 2 weeks. Further work up will be decided after we obtain test results Breast cancer 03/15/2020 Acquired absence of bilateral breasts and nipple s 12/02/2017 Nicotine dependence, cigaret lila, with other nicotine-induced disorders 07/07/2017 Personal history of malignant neoplasm of breast 07/07/2017 Status post left mastectomy 07/07/2017 Status post right mastectomy 07/07/2017 Chronic obstructive pulmonary disease 07/21/2016 Hernia, incisional 03/24/2011 Absence of both breasts 07/11/2009 Immunizations Immunization Administration Dates Next Due Pfizer SARS-CoV-2 Monovalent Vaccination (12+ Yrs) PURPLE 09/23/2020,09/02/2020 Surgical History Surgery Date Site/Laterality Comments HYSTERECTOMY OTHER SURGICAL HISTORY 04/06/2020 - 05/06/2020 Liver cyst biopsy MASTECTOMY Bilateral BREAST SURGERY COCHLEAR IMPLANT Left CHOLECYSTECTOMY CORONARY STENT PLACEMENT 08/17/2023 s/p DESx1 OM1, right radial access, LVEDP 7 Medical History Medical History Date Comments Sleep apnea Motion sickness Hypertension Asthma Lung disease Chronic bronchitis (HCC) Chronic kidney disease moderate Hypothyroidism Headache Cancer (HCC) Breast CA - left Depression Family History Medical History Relation Name Comments Anesthesia problems Mother Pt state s her mother had difficulity waking up from surgery (unsure what kind of surgery) Relation Name Status Comments Mother Social History Tobacco Use Types Packs/Day Years Used Date Smoking Tobacco: Every Day Cigarettes 1 60.3 Started: 1963 Smokeless Tobacco: Never Tobacco Cessation:Ready to Q uit: No; Counseling Given: Yes AUDIT-C Answer Date Recorded Q1: How often do you have a drink containing alc ohol? Never 11/28/2020 Average Number of Drinks Not on file 021 Frequency of Binge Drinking Not on file 11/05 Comments No Sex and Gender Information Value Date Recorded Sex Assigned at Not on file Legal Sex Female 12:19 AM MYSTERY SHOPPER Gender Identity Not on file Sexual Orientation Not on file Obstetrics History Last Filed Vital Signs Vital Sign Reading Time Taken Comments Blood Pressure 119/64 12/08/2023 1:15 PM CDT Pulse 74 12/08/2023 1:15 PM CDT Temperature 36.5 C (97.7 F) 11/29/2020 12:34 PM CDT Respiratory Rate 14 11/29/2020 12:34 PM CDT Oxygen Saturation 97% 11/29/2020 12:34 PM CDT Inhaled Oxygen Concentration - - Weight 77 kg (169 lb 11.2 oz) 12/08/2023 1:15 PM CDT Height 156.5 cm (5' 1.61 ) 12/08/2023 1:15 PM CD T Body Mass Index 31.43 12/08/2023 1:15 PM CDT Plan of Treatment Health Maintenance Due Date Last Done Comments Colon Cancer Screening-Colonoscopy 1955 Depression Screening 1955 Hepatitis C Screening 1955 Osteoporosis Screening-Bone Density Scan 1955 DTaP/Tdap/Td Vaccine (1 - Tdap) 11/04/1967 Hepatitis B Screening 1974 Zoster Vaccine (1 of 2) 2006 Breast Cancer Screening-Mammogram 10/05/2013 013 Well Visit 65+ 2021 Fall Risk Assessment 11/29/2021 11/29/2020 Lung Cancer Screening 08/13/2023 08/12/2022 Covid-19 Vaccine (3 - 2023-2 5 season) 2023 09/23/2020, 09/02/2020 Influenza Vaccine (Season Ended) 2024 04/04/2021, 04/18/2019, 01/28/2017, Additional history exists Pneumococcal vaccine 65+ Completed 023, 02/15/2014, 02/21/2013 Procedures Procedure Name Priority Date/Time Associated Diagnosis Comments SCREENING MAMMOGRAM Routine 10/05/2012 1 :24 PM CDT from Last 3 Months or Most Recently Relevant to Health Maintenance Results * Screening Mammogram (10/05/2012 1:24 PM CDT) Anatomical Region Laterality Modality Breast N/A Mammography 10/05/2012 1:24 PM CDT Narrative 10/05/2012 11:01 PM CDT MR Gus Mamm R Acc#: [id number] DATE OF EXAM: Oct 05 2012 Performed by: CLINICAL HISTORY: Lump/mass right breast. Patient felt a lump 2 months ago. Patient no longer feels a lump. RESULT: Three views of the right breast obtained, compared with prior studies from 12/03/11, 12/02/10, 11/30/09, and 11/29/08. Mild fibroglandular pattern right breast. Circumscribed nodular opacity upper outer right breast is similar to multiple prior studies. This is present on all of the prior examinations, including 2008. No new mass identified. No suspicious clusters of microcalcifications are evident. Digital technology was employed plus computer-aided detection software (R2) was utilized in interpretation of these images. This facility utilizes a reminder system to notify patients of yearly mammograms. IMPRESSION: NODULAR OPACITY/MASS UPPER OUTER RIGHT BREAST PRESENT ON MULTIPLE PRIOR EXAMINATIONS, INCLUDING STUDY OF 2007. NO NEW MASS IDENTIFIED. BENIGN FINDINGS. RECOMMEND PROCEEDING ON CLINICAL GROUNDS. NEGATIVE RESULTS SHOULD NOT DISSUADE ONE FROM BIOPSY OF A CLINICALLY PALPABLE SUSPICIOUS MASS. HOWEVER, THE PATIENT DOES NOT FEEL LUMP/MASS AT THIS TIME. FOLLOW-UP AT LEAST CLINICALLY RECOMMENDED. BI-RADS CATEGORY 2 - BENIGN Interpreting Physician: DESIRAE SCHMIDT M.D. Read on: Oct 05 2012 1:28P Transcribed by: neyda On: Oct 05 2012 3:19P Approved Electronically by: DESIRAE SCHMIDT M.D. on: Oct 05 2012 11:01P Ordering DR: DR ALETA CARDONA Attending DR: ALETA CARDONA Procedure Note Provider, MD Nasreen - 08/07/2016 MR Diag Mamm R Acc#: [id number] DATE OF EXAM: Oct 05 2012 Performed by: CLINICAL HISTORY: Lump/mass right breast. Patient felt a lump 2 months ago. Patient nolonger feels a lump. RESULT: Three views of the right breast obtained, compared with prior studiesfrom 12/03/11, 12/02/10, 11/30/09, and 11/29/08. Mild fibroglandular patternright breast. Circumscribed nodular opacity upper outer right breast issimilar to multiple prior studies. This is present on all of the priorexaminations, including 2007. No new mass identified. No suspiciousclusters of microcalcifications are evident. Digital technology wasemployed plus computer-aided detection software (R2) was utilized ininterpretation of these images. This facility utilizes a reminder systemto notify patients of yearly mammograms. IMPRESSION: NODULAR OPACITY/MASS UPPER OUTER RIGHT BREAST PRESENT ON MULTIPLE PRIOREXAMINATIONS, INCLUDING STUDY OF 2007. NO NEW MASS IDENTIFIED. BENIGNFINDINGS. RECOMMEND PROCEEDING ON CLINICAL GROUNDS. NEGATIVE RESULTSSHOULD NOT DISSUADE ONE FROM BIOPSY OF A CLINICALLY PALPABLE SUSPICIOUSMASS. HOWEVER, THE PATIENT DOES NOT FEEL LUMP/MASS AT THIS TIME.FOLLOW-UP AT LEAST CLINICALLY RECOMMENDED. BI-RADS CATEGORY 2 - BENIGN Interpreting Physician: DESIRAE SCHMIDT M.D. Read on: Oct 05 2012 1:28P Transcribed by: neyda On: Oct 05 2012 3:19P Approved Electronically by: DESIRAE SCHMIDT M.D. on: Oct 05 2012 11:01P Ordering DR: DR ALETA CARDONA Attending DR: ALETA CARDONA us Historical Provider MD [facility] MAMMO PROCEDURES Kathleen l Result from Last 3 Months or Most Recently Relevant to Health Maintenance Insurance [facility] [id number] [place] [address] [facility] MEDICARE MEDICARE [facility] Advance Directives For more information, please contact: [phone] * Full Code (Latest Code Status on File) Date Activated Date Inactivated Comments 11/28/2020 7:15 PM 11/29/2020 7:45 PM Care Teams Staff Accountant Relationship Specialty Start Date End Date Dontae Min DO PCP - General Internal Medicine 09/28/20
--- OUTSIDE RECORDS SUMMARY | 2024-07-14 16:24 | XMS_ITS | Referral Summary ---
Author Organization [facility] Medical Office Building A Address [address] [place] [address] Care Team Providers Care Blade Grader Operator Name Role Phone Dontae Min DO Primary Care Provider [phone] Allergies Active Allergy Reactions Criticality Noted Date [...] artery disease of n ative artery of [place] heart with stable angina pectoris 09/17/2022 Nontoxic [...] 03/15/2020 Assessment & Plan (04/26/2020 3:09 PM SALES AND SERVICE REPRESENTATIVE): Controlled with medication including Lasix CKD - continue medication per PCP Assessment & Plan (03/15/2020 3:58 PM SALES AND SERVICE REPRESENTATIVE): Controlled with medication including Lasix CKD - continue medication per PCP Mixed hyperlipidemia 03/15/2020 Hypercalcemia 03/15/2020 Assessment & Plan (04/26/2020 3:09 PM SALES AND SERVICE REPRESENTATIVE): Detected on labs on 03/09/20 Calcium of [...] functions Assessment & Plan (03/15/2020 3:57 PM SALES AND SERVICE REPRESENTATIVE): Detected on recent labs on 03/09/20 Calcium [...] SARS-CoV-2 Monovalent Vaccination (12+ Yrs) PURPLE 09/23/2020,09/02/2020 Social History Tobacco Use Types Packs/Day Years [...] on file Legal Sex Female 12:19 AM SALES AND SERVICE REPRESENTATIVE Gender Identity Not on file Sexual Orientation Not on file Last Filed Vital Signs Vital Sign Reading [...] 12/08/2023 1:15 PM CDT Plan of Treatment Not on file Procedures Procedure Name Priority Date/Time Associated Diagnosis Comments SCREENING MAMMOGRAM Routine 10/05/2012 1 :24 PM CDT from Last 3 Months or Most Recently Relevant to Health Maintenance Results * Screening Mammogram (10/05/2012 1:24 PM CDT) Anatomical Region Laterality Modality Breast N/A Mammography 10/05/2012 1:24 PM CDT Narrative 10/05/2012 11:01 PM CDT MR Weber Mamm R Acc#: [id number] DATE OF EXAM: Oct 05 2012 Performed [...] on all of the prior examinations, including 2007. No new mass identified. No suspicious clusters of microcalcifications are evident. Digital technology was employed plus computer-aided detection software (Fortisphere) was utilized in interpretation of these images. [...] 11:01P Ordering DR: DR ALETA CARDONA Attending : ALETA CARDONA Procedure Note Provider, MD Nasreen - 08/07/2016 MR Weber Mamm R Acc#: [id number] DATE OF EXAM: Oct 05 2012 Performed [...] present on all of the priorexaminations, including 2008. No new mass identified. No suspiciousclusters of microcalcifications are evident. Digital technology wasemployed plus computer-aided detection software (R2) was utilized ininterpretation of these images. This facility utilizes a reminder systemto notify patients of yearly mammograms. IMPRESSION: NODULAR OPACITY/MASS UPPER OUTER RIGHT BREAST PRESENT ON MULTIPLE PRIOREXAMINATIONS, INCLUDING STUDY OF 2008. NO NEW MASS IDENTIFIED. BENIGNFINDINGS. RECOMMEND PROCEEDING [...] Attending DR: ALETA CARDONA us Historical Provider IMAngelika MAMMO PROCEDURES Kathleen l Result from Last 3 Months or Most Recently Relevant to Health Maintenance Insurance [facility] MEDICARE MEDICARE [employer] Advance Directives For more information, please contact: [phone] * Full Code (Latest Code Status on File) Date Activated Date Inactivated Comments 11/28/2020 7:15 PM 11/29/2020 7:45 PM Care Teams Blade Grader Operator Relationship Specialty Start Date End Date Dontae Min DO PCP - General Internal Medicine 09/28/20
--- OUTSIDE RECORDS SUMMARY | 2024-07-14 16:24 | XMS_ITS | CONTINUITY OF CARE DOCUMENT ---
Author Name mima guillermo Address Unknown Organization [facility] Address [address] [place] [address] Phone [phone] Care Team Providers Care Senior Executive Compensation Analyst Name Role Phone mima guillermo Unavailable Unavailable INSURANCE PROVIDERS Payer name Policy type / Coverage type [employer] party ID [facility] [facility] Medicaid 0 [id number]
--- OUTSIDE RECORDS SUMMARY | 2024-07-14 16:24 | XMS_ITS | Encounter Summary ---
Author Organization [facility] Address [facility] [place] [address] Care Team Providers Care Ehs Specialist Name Role Phone Saul Marcelino MD Primary Care Provider [phone] None, Physician Primary Care Provider Unavailabl e Saul Marcelino MD Primary Care Provider [phone] Reason for Visit * Reason Onset Date Comments Hospital Follow-up 11/25/2023 Encounter Details Date Type Department Care Team (Late st Contact Info) Description 11/25/2023 Telephone [facility] - Cardiology [address] [facility], [place] [place] [address] Andrés Kaye MD [facility] [place], [place] [id number] Hospital Follow-up Social History Tobacco Use Types Packs/Day Years [...] deaf or have serious hearing difficult y? No 10/05/2023 Is person blind or have serious difficulty seein g? No 10/05/2023 Does person have serious dif ficulty walking/climbing stairs? No 10/05/2023 Does person have difficulty dressing/bathing? No 10/05/2023 Does person have difficulty doing errands alone? No 10/05/2023 Cognitive Status Response Date of Assessm ent Does person have difficulty concentrating/remembering/making decisions? No 10/05/2023 documented as of this encounter Miscellaneous Notes * Telephone Encounter - Tanja Cantrell - 11/25/2023 12:59 PM CDT Reason for call: Patient was recently hospitalized 11/11-11/20,while in the hospital she experienced chest pains and was advised to f.u with her hotel operation manager prior to being discharged Patient Call Back number: [phone] documented in this encounter Plan of Treatment Upcoming Encounters Date Type Department Care Team (Late st Contact Info) Description 08/25/2024 3:00 PM CDT Office Visit [facility] - Hematology/Oncology [address] [place] [address] Aubree Thomas MD [address] [place] [address] 09/14/2024 2:00 PM CDT Office Visit [facility] - Neurology [address] [place] [address], [facility] [place] [address] Gary Virgen APRN-POP [address] [place] [address] [place] [address] 10/17/2024 2:00 PM CDT Office Visit [facility] - Pulmonology [address] [place] [address], [place] [address] Kunal Lennon MD [address] [place] [address] 2L DIV [place] [address] 11/02/2024 1:00 PM CDT Appointment [facility] OP DRAW STATION [address] [place] [phone] 11/02/2024 2:00 PM CDT [facility] [address] [place] [phone] Adarsh Menendez MD [address] [place] [address] 3L [place] [address] 11/09/2024 12:30 PM CDT Office Visit [facility] - GI [address] [place] [phone] Raffaele Beck MD [address] [place] [address] 2L [place] [address] 11/17/2024 3:00 PM CDT Office Visit [facility] - GI [address] [place] [phone] Raffaele Beck MD [address] [place] [address] 2L [place] [address] 11/21/2024 2:00 PM CDT Office Visit [facility] - Sleep Services [facility] [place] [address] Maura Simmons, APNP-EXTRUSION PRESS ADJUSTER [address] [place] [address] 2L DIV OF PULMONARY/[place] [address] 02/06/2025 2:00 PM GAS REFRIGERATOR SERVICER Appointment [facility] CAT SCAN [address] [place] [address] Beau Myrick MD [address] [facility] 2L DIV OF PULMONARY/[place] [address] documented as of this encounter Goals Goal Patient Goal Type Associated Problems Recent Progress Patient-Stated? Author Medication Management General On track( 025 4:47 PM GAS REFRIGERATOR SERVICER) Radha De La Fuente RN Note: Expected end date: Ongoing Interventions: Take all medications as prescribed Let your doctor know right away about any changes in your medications Make sure to request a refill of your medication at least one week prior to your last dose documented as of this encounter Visit Diagnoses Not on filedocumented in this encounter Care Teams Ehs Specialist Relationship Specialty Start Date End Date Saul Marcelino MD [address] [place] [address] PCP - General Family Medicine 09/17/22 02/09/24 None, Physician [address] [place] [address] PCP - General 02/10/24 04/19/24 Saul Marcelino MD [address] [place] [address] PCP - General Family Medicine 04/20/24 documented as of this encounter
--- OUTSIDE RECORDS SUMMARY | 2024-07-14 16:24 | XMS_ITS ---
Author Organization [facility] Medical Office Building A Address [address] [place] [address] Care Team Providers Care Administrative Office Assistant Name Role Phone Dontae Min DO Primary Care Provider [phone] Active Problems Problem Noted Date Diagnosed Date Renal disorder 12/08/2023 Overview (12/08/2023): Kidney failure Generalized anxiety disorder with panic attacks 05/14/2023 Leg cramps 05/14/2023 BERTA (obstructive sleep apnea) 05/14/2023 PND (paroxysmal nocturnal dyspnea) 05/14/2023 Restless legs syndrome (RLS) 05/14/2023 Stage 3b chronic kidney disease 05/14/2023 Cystic disease of liver 09/18/2022 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 [place] heart with stable angina pectoris 09/17/2022 Nontoxic [...] 03/15/2020 Assessment & Plan (04/26/2020 3:09 PM PROP WORKER): Controlled with medication including Lasix CKD - continue medication per PCP Assessment & Plan (03/15/2020 3:58 PM PROP WORKER): Controlled with medication including Lasix CKD - continue medication per PCP Mixed hyperlipidemia 03/15/2020 Hypercalcemia 03/15/2020 Assessment & Plan (04/26/2020 3:09 PM PROP WORKER): Detected on labs on 03/09/20 Calcium of [...] functions Assessment & Plan (03/15/2020 3:57 PM PROP WORKER): Detected on recent labs on 03/09/20 Calcium [...] incisional 03/24/2011 Absence of both breasts 07/11/2009 Current Treatment and Therapy Plans No current plan information found. Past Treatment and Therapy Plans No past plan information found. Lifetime Dose Tracking * Chemical Lifetime Dose Automatic Entry Manual Entr y DLP 1,777 mGycm 1,777 mGycm 0 mGycm
--- OUTSIDE RECORDS SUMMARY | 2024-07-14 16:25 | XMS_ITS | Encounter Summary ---
Author Organization [facility] Address [address] [facility] [place] [address] Care Team Providers Care Load Tallier Name Role Phone Dontae Min DO Primary Care Provider [phone] Timmy Baldwin MD Primary Care Provider [phone] Dontae Min DO Primary Care Provider [phone] Dontae Min DO Primary Care Provider [phone] Saul Marcelino MD Primary Care Provider [phone] None, Physician Primary Care Provider [facility] Saul Marcelino MD Primary Care Provider [phone] Encounter Details Date Type Department Care Team (Late st Contact Info) Description 04/17/2022 Ambulatory Consult [facility] [address]L [address] [facility], [place] [address] Shelley Ortega, RN Social History Tobacco Use Types Packs/Day Years Used Date Smoking Tobacco: Former Cigarettes 0.5 58 1 965 - 04/07/2022 Smokeless Tobacco: Never Alcohol Use Standard Drinks/Week Comments Not Currently 0 (1 standard drink = 0.6 oz pur e alcohol) prior 2-3 times a month Sex and Gender Information Value Date Recorded Sex Assigned at Not on file Gender Identity Not on file Sexual Orientation Not on file COVID-19 Exposure Response Date Recorded In the last 10 days, have yo u been in contact with someone who was confirmed or suspected to have Coronavirus/COVID-19? No / Unsure 04/10/2022 3:01 PM TITLE ONE READING TEACHER documented as of this encounter Plan of Treatment Upcoming Encounters Date Type Department Care Team (Late st Contact Info) Description 08/25/2024 3:00 PM CDT Office Visit [facility] - Hematology/Oncology [address] [place] [phone] Aubree Thomas MD [address] [place] [address] 09/14/2024 2:00 PM CDT Office Visit [facility] - Neurology [address] [place] [address], [place] [phone] Gary Virgen APRN-POP [address] [place] [address] 1L [place] [address] 10/17/2024 2:00 PM CDT Office Visit [facility] - Pulmonology [address] [place] [address], [place] [phone] Kunal Lennon MD [address] [place] [address] 2L DIV [place] [address] 11/02/2024 1:00 PM CDT Appointment [facility] OP DRAW STATION [address] [place] [address] 11/02/2024 2:00 PM CDT Office Visit [facility] - Nephrology [address] [place] [address], [place] [address] Adarsh Menendez MD [address] [place] [address] 3L [place] [phone] 11/09/2024 12:30 PM CDT Office Visit [facility] - GI [address] [place] [address], [place] [phone] Raffaele Beck MD [address] [facility] 2L [place] [phone] 11/17/2024 3:00 PM CDT Office Visit [facility] - GI [address] [facility], [place] [address] Raffaele Beck MD [address] [place] [address] 2L [place] [address] 11/21/2024 2:00 PM CDT Office Visit [facility] - Sleep Services [address] [place] [address] Maura Simmons, APNP-BLACK OFF WORKER [address] [facility] 2L DIV OF PULMONARY/[place] [address] 02/06/2025 2:00 PM TITLE ONE READING TEACHER Appointment [facility] CAT SC[facility] [address] [place] [phone] Beau Myrick MD [address] [place] [address] 2L DIV OF PULMONARY/[place] [address] documented as of this encounter Goals Goal Patient Goal Type Associated Problems Recent Progress Patient-Stated? Author Medication Management General On track( 025 4:47 PM TITLE ONE READING TEACHER) Radha De La Fuente, RN Note: Expected end date: Ongoing Interventions: Take all medications as prescribed Let your doctor know right away about any changes in your medications Make sure to request a refill of your medication at least one week prior to your last dose documented as of this encounter Visit Diagnoses Not on filedocumented in this encounter Care Teams Load Tallier Relationship Specialty Start Date End Date Dontae Min DO [address] [place] [address] PCP - General 06/15/19 05/11/22 [place] [address] [address] PCP - General 05/12/22 06/03/22 Dontae Min DO [address] [place] [address] PCP - General 06/04/22 06/09/22 Dontae Min DO [address] [place] [address] PCP - General 06/10/22 09/16/22 Saul Marcelino MD [address] [place] [address] PCP - General Family Medicine 09/17/22 02/09/24 None, Physician [address] [place] [address] PCP - General 02/10/24 04/19/24 Saul Marcelino MD [address] [place] [address] PCP - General Family Medicine 04/20/24 documented as of this encounter
--- OUTSIDE RECORDS SUMMARY | 2024-07-14 16:25 | XMS_ITS | Encounter Summary ---
Author Organization [facility] Address [address] [facility] [place] [address] Care Team Providers Care Impregnator Helper Name Role Phone Saul Marcelino MD Primary Care Provider [phone] Reason for Visit * Reason Onset Date Comments Order 04/26/2024 Encounter Details Date Type Department Care Team (Late st Contact Info) Description 04/26/2024 Telephone [facility] - Sleep Services [address] [place] [address] Maura Simmons, APNP-PRODUCT SAFETY SPECIALIST [address] OF PULMONARY/[place] [address] Order Social History Tobacco Use Types Packs/Day Years Used Date Smoking Tobacco: Every Day Cigarettes 0.5 60.3 Started: 1963 Smokeless Tobacco: Never Comments:Pack [...] more drinks on one occasion? Never 08/17/2023 PHQ-2 Answer Date Recorded Patient Health Questionnaire-2 Score 3 02/10/2024 Education Answer Date Recorded What is the [...] encounter Miscellaneous Notes * Telephone Encounter - ÓscarAnnea - 04/26/2024 11:31 AM CST Reason for call: Pt would like a call back regarding the need of a new script for her CPAP Patient Call Back number: [phone] ESS MAKER documented in this encounter Plan of Treatment Upcoming Encounters Date Type Department Care Team (Late st Contact Info) Description 08/25/2024 3:00 PM CDT Office Visit [facility] - Hematology/Oncology [address] [place] [phone] Aubree Thomas MD [address] [place] [address] 09/14/2024 2:00 PM CDT Office Visit [facility] - Neurology [address] [place] [address], [facility] [place] [phone] Gary Virgen APRN-CNP [address] [place] [address] [place] [address] 10/17/2024 2:00 PM CDT Office Visit [facility] - Pulmonology [address] [place] [address], [place] [phone] Kunal Lennon MD [address] [place] [address] 2L DIV OF GEN [place] [address] 11/02/2024 1:00 PM CDT Appointment [facility] OP DRAW STATION [address] [place] [address] 11/02/2024 2:00 PM CDT Office Visit [facility] - Nephrology [address] [place] [address], [place] [address] Adarsh Menendez MD [address] [place] [address] 3L [place] [address] 11/09/2024 12:30 PM CDT Office Visit [facility] - GI [address] [place] [phone] Raffaele Beck MD [address] [place] [address] 2L DIV [place] [address] 11/17/2024 3:00 PM CDT Office Visit [facility] - GI [address] [place] [phone] Raffaele Beck MD [address] [place] [address] 2L DIV [place] [address] 11/21/2024 2:00 PM CDT Office Visit [facility] - Sleep Services [facility] [place] [address] Maura Simmons, APNP-PRODUCT SAFETY SPECIALIST [address] [place] [address] 2L DIV OF PULMONARY/[place] [address] 02/06/2025 2:00 PM HARNESS MAKER Appointment [facility] CAT SCAN [address] [place] [address] Beau Myrick MD [address] [facility] 2L DIV OF PULMONARY/CR[place] [address] documented as of this encounter Goals Goal Patient Goal Type Associated Problems Recent Progress Patient-Stated? Author Medication Management General On track( 025 4:47 PM HARNESS MAKER) Radha De La Fuente RN Note: Expected end date: Ongoing Interventions: Take all medications as prescribed Let your doctor know right away about any changes in your medications Make sure to request a refill of your medication at least one week prior to your last dose documented as of this encounter Visit Diagnoses Not on filedocumented in this encounter Care Teams Impregnator Helper Relationship Specialty Start Date End Date Saul Marcelino MD [address] [place] [address] PCP - General Family Medicine 04/20/24 documented as of this encounter
--- OUTSIDE RECORDS SUMMARY | 2024-07-14 16:25 | XMS_ITS | Encounter Summary ---
Author Organization [facility] Address [address] [facility] [place] [address] Care Team Providers Care Sustainability Purchasing Agent Name Role Phone Saul Marcelino MD Primary Care Provider [phone] Reason for Visit * Reason Comments Refill Request Encounter Details Date Type Department Care Team (Late st Contact Info) Description 07/08/2024 Refill [facility] - Pulmonology [address] [facility], [place] [address] Maico Murphy MD [address] [place] [address] Refill Request Social History Tobacco Use Types Packs/Day Years Used Date Smoking Tobacco: Every Day Cigarettes 0.3 60.3 Started: 1964 Smokeless Tobacco: Never Comments:Pack of cigarettes lasts [...] No 10/05/2023 documented as of this encounter Plan of Treatment Upcoming Encounters Date Type Department Care Team (Late st Contact Info) Description 08/25/2024 3:00 PM CDT Office Visit [facility] - Hematology/Oncology [address] [place] [address] Aubree Thomas MD [address] [place] [address] 09/14/2024 2:00 PM CDT Office Visit [facility] - Neurology [address] [place] [address] Gary Virgen, MEAT AND POULTRY INSPECTOR-FARO DEALER [address] [place] [address] 1L [place] [address] 10/17/2024 2:00 PM CDT Office Visit [facility] - Pulmonology [address] [place] [address], [place] [phone] Kunal Lennon MD [address] [place] [address] 2L DIV OF [place] [address] 11/02/2024 1:00 PM CDT Appointment [facility] OP DRAW STATION [address] [place] [phone] 11/02/2024 2:00 PM CDT Office Visit [facility] - Nephrology [address] [place] [phone] Adarsh Menendez MD [address] [place] [address] 3L [place] [address] 11/09/2024 12:30 PM CDT Office Visit [facility] - GI [address] [place] [phone] Raffaele Beck MD [address] [place] [address] 2L DIV [place] [address] 11/17/2024 3:00 PM CDT Office Visit [facility] - GI [address] [place] [phone] Raffaele Beck MD [address] [place] [address] 2L DIV [place] [address] 11/21/2024 2:00 PM CDT Office Visit [facility] - Sleep Services [address] [place] [phone] Maura Simmons, APELISSA-FARO DEALER [address] [place] [address] 2L DIV OF PULMONARY/[place] [address] 02/06/2025 2:00 PM SUPERVISOR SHUTTLE FITTING Appointment [facility] CAT SCAN [address] [place] [phone] Beau Myrick MD [address] [facility] 2L DIV OF PULMONARY/[place] [address] documented as of this encounter Goals Goal Patient Goal Type Associated Problems Recent Progress Patient-Stated? Author Medication Management General On track( 025 4:47 PM SUPERVISOR SHUTTLE FITTING) No Radha Bellamy, RN Note: Expected end date: Ongoing Interventions: Take all medications as prescribed Let your doctor know right away about any changes in your medications Make sure to request a refill of your medication at least one week prior to your last dose Safety General On track( 025 4:47 PM SUPERVISOR SHUTTLE FITTING) No Rebecca De Jesus, RN Note: Expected end date: ongoing Interventions: Your nurse will assess your risk for falls/injury each visit Use appropriate and safe transfer methods Make sure appropriate safety devices are available and within reach Be aware of medications that could predispose you to falling Wear non-skid/rubber sole footwear Wear glasses/hearing aid Keep personal items within easy reach Keep walking paths clutter free and clear Maintain an unobstructed path to the bathroom Medication Management General No Dia Graham RN Note: Expected end date: Ongoing Interventions: Take all medications as prescribed Let your doctor know right away about any changes in your medications Make sure to request a refill of your medication at least one week prior to your last dose documented as of this encounter Visit Diagnoses Diagnosis Tobacco abuse Tobacco use disorder documented in this encounter Care Teams Sustainability Purchasing Agent Relationship Specialty Start Date End Date Saul Marcelino MD [address] [place] [address] PCP - General Family Medicine 04/20/24 documented as of this encounter
--- OUTSIDE RECORDS SUMMARY | 2024-07-14 16:25 | XMS_ITS | Patient Health Record ---
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 Name Role Phone Salu Marcelino MD Primary Care Provider UnavailDaniele Moran Unavailable [phone] Ondina Hyde Unavailable [phone] Migration, Provider Unavailable Unavailable Allergies Allergen (clinical drug ingredient) Drug/Non Drug Allergy documented on EMR Reaction Allergy Type Onset Date Status TETANUS VACCINES AND TOXOID (uncoded) Unknown Allergy 11/18/2022 Active fluoxetine Fluoxetine Unknown Drug Allergy 11/18/2022 Acti ve Tetanus Immune Globulin Unknown Drug Allergy 11/18/2022 Active Tetanus-Diphtheria Toxoids Td Unknown Drug Allergy 11/18/2022 Active Reason For Referral No Information Medications Medication SIG (Take, Route, Frequency, Duration) Notes Start Date End Date Status Levalbuterol HCl 1.25 MG/3ML Inhalation 07/31/2023 Active Valsartan 160 MG Oral 07/31/2023 Ac tive Meclizine HCl 25 MG Oral 07/31/2023 Active Amantadine HCl 100 MG Oral 07/31/2023 Active Albuterol Sulfate 1.25 MG/3ML Inhalation 07/31/2023 Active Loratadine 10 MG Oral 07/31/2023 Ac tive traZODone HCl 100 MG 1 tablet at bedtime Oral Once a day for 90 days As needed Active HYDROcodone-Acetaminoph en 10-325 MG Oral 07/31/2023 Active Ingrezza 80 MG 1 capsule Orally Once a day for 30 days Active buPROPion HCl ER (SR) 150 MG 1 tablet Orally twice a day for 30 days take in the morning and afternoon 06/23/2024 Active Doxazosin Mesylate 4 MG Oral 07/31/2023 Active Carvedilol 25 MG Oral 07/31/2023 Ac tive Trelegy Ellipta 100-62.5-25 mcg Inhalation *Pick strength-form from [employer] for eRX* 07/31/2023 Active CHOLECALCIFEROL (VITAMIN D3) 25 MCG (1,000 UNIT) CAPSULE *Reorder from [employer] for eRx and Interaction Alerts* 07/31/2023 Active Naproxen 500 MG Oral 07/31/2023 Act reji ProAir HFA 108 (90 Base) MCG/ACT Inhalation 07/31/2023 Active HYDROcodone-Acetaminoph en 5-325 MG Oral 07/31/2023 Active Aspirin 81 MG Oral *Pick strength-form from [employer] for eRX* 07/31/2023 Active Varenicline Tartrate(Continue) 1 MG Oral *Reorder from [employer] for eRx and Interaction Alerts* 07/31/2023 Active Ondansetron HCl 4 MG Oral 07/31/2023 Active amLODIPine Besylate 10 MG Oral 07/31/2023 Active Sertraline HCl 100 MG 1.5 tablet Oral Once a day for 90 days Active Immunizations Vaccine Route Administration Date Status Comme nts RSV-MAb (Respiratory syncyti al virus immune globulin) Unknown 02/10/2023 Administered Pfizer-[employer] Covid-19 Vac cine 1st dose Unknown 10/30/2021 Administered Pfizer [employer] Covid-19 Vac cine 2nd dose Unknown 09/02/2020 Administered Pfizer [employer] Covid-19 Vac cine 2nd dose Unknown 09/23/2020 Administered Pfizer [employer] Covid-19 Vac cine 2nd dose Unknown 04/04/2021 Administered Social History Tobacco Use: Social History Observation Description Date Details (start date - stop date) Current Smoker NA - NA Sex Assigned At : Social History Observation Description Sex Assigned At Female Tobacco Control (Standard) Question Answer Notes Tobacco use: Current every day smoker Problems Problem Type SNOMED Code ICD Code Onset Dates Problem Status W/U Status Risk Notes Problem Tobacco user (878677980) Nicotine dependence, cigarettes, uncomplicated (F17.210) Active confirmed Problem Mild recurrent major depression (65280312) Major depressive disorder, recurrent, mild (F33.0) 4 Active confirmed Problem Drug-induced tardive dystonia (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) Drug induced subacute dyskinesia (G24.01) 4 Active confirmed Problem Insomnia (143231805) Other insomnia (G47.09) 4 Active confirmed Problem Chronic obstructive pulmonary disease (02437969) Chronic obstructive pulmonary disease, unspecified (J44.9) 4 Active confirmed Problem Chronic kidney disease stage 3 (disorder) (501121489) Chronic kidney disease, stage 3 unspecified (N18.30) 4 Active confirmed Vital Signs Heart Rate 47 /min 06/23/2024 Height-cm 154.94 cm 06/23/2024 Blood pressure diastolic 69 mm Hg 06/23/2024 Weight-kg 73.07 kg 06/23/2024 Height 61.00 in 06/23/2024 Blood pressure systolic 123 mm Hg 06/23/2024 Weight 161.1 lbs 06/23/2024 BMI 30.44 kg/m2 06/23/2024 Encounters Encounter Location Date Provider Diagnosis [facility] [address] [facility] [address] [address] 07/31/2023 Danieleparth Dunnoza Chronic kidney disease, stage 3 unspecified N18.30 ; Major depressive disorder, recurrent, mild F33.0 ; Nicotine dependence, cigarettes, uncomplicated F17.210 ; Chronic obstructive pulmonary disease, unspecified J44.9 ; Other insomnia G47.09 and Drug induced subacute dyskinesia G24.01 [employer] [facility] [address] [address] 11/12/2023 Danieleparth Krishnaa Chronic kidney disease, stage 3 unspecified N18.30 ; Major depressive disorder, recurrent, mild F33.0 ; Nicotine dependence, cigarettes, uncomplicated F17.210 ; Chronic obstructive pulmonary disease, unspecified J44.9 ; Other insomnia G47.09 and Drug induced subacute dyskinesia G24.01 [employer] [facility] [address] [facility] [address] [place] [address] 02/09/2024 Danieleparth Dunnoza Chronic kidney disease, stage 3 unspecified N18.30 ; Major depressive disorder, recurrent, mild F33.0 ; Nicotine dependence, cigarettes, uncomplicated F17.210 ; Chronic obstructive pulmonary disease, unspecified J44.9 ; Other insomnia G47.09 and Drug induced subacute dyskinesia G24.[address] [facility] [address] [place] [address] 03/09/2024 Daniele Vasquez Chronic kidney disease, stage 3 unspecified N18.30 ; Major depressive disorder, recurrent, mild F33.0 ; Nicotine dependence, cigarettes, uncomplicated F17.210 ; Chronic obstructive pulmonary disease, unspecified J44.9 ; Other insomnia G47.09 and Drug induced subacute dyskinesia G24.[address] [facility] [address] [place] [address] 06/07/2024 Daniele Vasquez [address] [address] 06/23/2024 Daniele Vasquez Major depressive disorder, recurrent, mild F33.0 ; Drug induced subacute dyskinesia G24.01 ; Chronic kidney disease, stage 3 unspecified N18.30 ; Nicotine dependence, cigarettes, uncomplicated F17.210 ; Other insomnia G47.09 ; Encounter for screening for cardiovascular disorders Z13.6 ; Nicotine use Z72.0 ; Encounter for screening for depression Z13.31 and Chronic obstructive pulmonary disease, unspecified J44.[address] [address] 07/29/2023 Provider [facility], [address] [address] 08/10/2023 Provider [facility], [address] [address] 08/11/2023 Provider [facility], [place] [address] [address] 08/19/2023 Provider [facility], [address] [address] 08/22/2023 [facility], [address] [address] 08/23/2023 Provider [facility], [address] [address] 06/29/2024 Daniele Vasquez Assessments Encounter Date Diagnosis (ICD Code) Assessment Notes Treatment Notes Treatment Clinical Notes Section Notes 07/31/2023 Nicotine dependence, cigarettes, uncomplicated (ICD-10 - F17.210) 07/31/2023 Major depressive disorder, recurrent, mild (ICD-10 - F33.0) 07/31/2023 Drug induced subacute dyskinesia (ICD-10 - G24.01) 07/31/2023 Other insomnia (ICD-10 - G47.09) 07/31/2023 Chronic obstructive pulmonary disease, unspecified (ICD-10 - J44.9) 07/31/2023 Chronic kidney disease, stage 3 unspecified (ICD-10 - N18.30) 11/12/2023 Chronic kidney disease, stage 3 unspecified (ICD-10 - N18.30) 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 Depression: - Patient reports taking Sertraline 150 mg daily. - Mood appears stable despite recent medical issues and family stressors. Plan: - Continue Sertraline 150 mg daily. - Encourage patient to seek support from friends or support groups. - Follow up in three months or sooner if needed. 2. Insomnia: - Patient reports taking Trazodone 100 mg at bedtime. - Sleep has been off and on, with increased sleep since bowel surgery. Plan: - Continue Trazodone 100 mg at bedtime. - Encourage patient to maintain good sleep hygiene. - Monitor sleep quality and adjust treatment as needed during follow-up visits. 3. Tardive Dyskinesia: - Patient reports taking Austedo 24 mg twice a day. - Persistent mouth movements and hand movements during sleep. Plan: - Continue Austedo 24 mg twice a day. - Monitor for any worsening or new abnormal movements. - Follow up in three months or sooner if needed. 4. Tobacco use: - Patient reports smoking a pack of cigarettes every two days. Plan: - Encourage patient to consider smoking cessation strategies and provide resources. - Monitor for any tobacco-relate d health issues during follow-up visits. 5. Sleep apnea: - Patient reports using a CPAP machine and noticing improvement. Plan: - Encourage patient to continue using CPAP machine as prescribed. - Monitor for any changes in sleep quality or apnea symptoms during follow-up visits. 7. Family stressors: - Patient reports feeling hurt and frustrated by lack of support from daughter and grandchildren during recent hospitalizatio ns. Plan: - Encourage patient to seek support from friends, support groups, or consider counseling to cope with family stressors. - Monitor for any impact on mental health during follow-up visits. Follow-up in three months or sooner if needed. 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 Depression: - Patient reports stable depressive symptoms. Plan: - Continue sertraline 150 mg daily. - Follow up in one month to assess the effectiveness of the current treatment. 2. Insomnia: - Patient reports difficulty falling asleep and staying asleep. Plan: - Continue trazodone 100 mg at bedtime. - Reevaluate sleep quality at the next visit. 3. Tardive dyskinesia: - Patient reports worsening movements, particularly in the mouth. Plan: - Discontinue Austedo 24 mg twice a day (total 48 mg daily). - Start Ingrezza 40 mg daily for one week, then increase to 80 mg daily. - Monitor for side effects and effectiveness at the next appointment. 4. Chronic kidney disease (stage 3b): - Patient's EGFR is 36, indicating mild to moderate kidney dysfunction. Plan: - Continue monitoring kidney function and follow up with the heating equipment repairer as recommended. 6. Smoking cessation: - Patient reports quitting smoking for 2 days and using nicotine patches. Plan: - Congratulate the patient on their progress and encourage continued efforts to quit smoking. - Offer additional support and resources if needed. Follow-up: - Schedule a follow-up appointment in one month to assess the patient's overall progress and response to the changes in medication. 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 Tardive Dyskinesia: - Patient reports improvement in symptoms with Ingrezza 80 mg daily. - Continue Ingrezza 80 mg daily for tardive dyskinesia management. 2. Tobacco Use: - Patient has resumed smoking at a rate of one pack per day due to aggravation. Plan: Discuss smoking cessation options and provide resources for support. 3. Depression: - Patient reports increased depression, particularly during the holiday season. - Continue sertraline 150 mg daily for depression and anxiety management. Plan: Encourage patient to seek counseling and check with her insurance for covered providers in her area. 4. Sleep: - Patient is currently taking trazodone 100 mg at bedtime for sleep. - Continue trazodone 100 mg at bedtime as needed for sleep. 5. Family Conflict: - Patient expresses a desire to pursue family counseling with her daughters. Plan: Encourage patient to discuss this option with her daughters and seek appropriate counseling services. 6. Follow-up: - Schedule a follow-up appointment in approximately 3 months to reassess patient's progress and make any necessary adjustments to the treatment plan. 06/23/2024 Drug induced subacute dyskinesia (ICD-10 - G24.01) 03/09/2024 Major depressive disorder, recurrent, mild (ICD-10 - F33.0) 1. Tardive Dyskinesia: - Patient reports improvement in symptoms with Ingrezza 80 mg daily. - Continue Ingrezza 80 mg daily for tardive dyskinesia management. 2. Tobacco Use: - Patient has resumed smoking at a rate of one pack per day due to aggravation. Plan: Discuss smoking cessation options and provide resources for support. 3. Depression: - Patient reports increased depression, particularly during the holiday season. - Continue sertraline 150 mg daily for depression and anxiety management. Plan: Encourage patient to seek counseling and check with her insurance for covered providers in her area. 4. Sleep: - Patient is currently taking trazodone 100 mg at bedtime for sleep. - Continue trazodone 100 mg at bedtime as needed for sleep. 5. Family Conflict: - Patient expresses a desire to pursue family counseling with her daughters. Plan: Encourage patient to discuss this option with her daughters and seek appropriate counseling services. 6. Follow-up: - Schedule a follow-up appointment in approximately 3 months to reassess patient's progress and make any necessary adjustments to the treatment plan. 02/09/2024 Major depressive disorder, recurrent, mild (ICD-10 - F33.0) 1. Depression: - Patient reports stable depressive symptoms. Plan: - Continue sertraline 150 mg daily. - Follow up in one month to assess the effectiveness of the current treatment. 2. Insomnia: - Patient reports difficulty falling asleep and staying asleep. Plan: - Continue trazodone 100 mg at bedtime. - Reevaluate sleep quality at the next visit. 3. Tardive dyskinesia: - Patient reports worsening movements, particularly in the mouth. Plan: - Discontinue Austedo 24 mg twice a day (total 48 mg daily). - Start Ingrezza 40 mg daily for one week, then increase to 80 mg daily. - Monitor for side effects and effectiveness at the next appointment. 4. Chronic kidney disease (stage 3b): - Patient's EGFR is 36, indicating mild to moderate kidney dysfunction. Plan: - Continue monitoring kidney function and follow up with the heating equipment repairer as recommended. 6. Smoking cessation: - Patient reports quitting smoking for 2 days and using nicotine patches. Plan: - Congratulate the patient on their progress and encourage continued efforts to quit smoking. - Offer additional support and resources if needed. Follow-up: - Schedule a follow-up appointment in one month to assess the patient's overall progress and response to the changes in medication. 11/12/2023 Major depressive disorder, recurrent, mild (ICD-10 - F33.0) 1. Depression: - Patient reports taking Sertraline 150 mg daily. - Mood appears stable despite recent medical issues and family stressors. Plan: - Continue Sertraline 150 mg daily. - Encourage patient to seek support from friends or support groups. - Follow up in three months or sooner if needed. 2. Insomnia: - Patient reports taking Trazodone 100 mg at bedtime. - Sleep has been off and on, with increased sleep since bowel surgery. Plan: - Continue Trazodone 100 mg at bedtime. - Encourage patient to maintain good sleep hygiene. - Monitor sleep quality and adjust treatment as needed during follow-up visits. 3. Tardive Dyskinesia: - Patient reports taking Austedo 24 mg twice a day. - Persistent mouth movements and hand movements during sleep. Plan: - Continue Austedo 24 mg twice a day. - Monitor for any worsening or new abnormal movements. - Follow up in three months or sooner if needed. 4. Tobacco use: - Patient reports smoking a pack of cigarettes every two days. Plan: - Encourage patient to consider smoking cessation strategies and provide resources. - Monitor for any tobacco-relate d health issues during follow-up visits. 5. Sleep apnea: - Patient reports using a CPAP machine and noticing improvement. Plan: - Encourage patient to continue using CPAP machine as prescribed. - Monitor for any changes in sleep quality or apnea symptoms during follow-up visits. 7. Family stressors: - Patient reports feeling hurt and frustrated by lack of support from daughter and grandchildren during recent hospitalizatio ns. Plan: - Encourage patient to seek support from friends, support groups, or consider counseling to cope with family stressors. - Monitor for any impact on mental health during follow-up visits. Follow-up in three months or sooner if needed. 02/09/2024 Nicotine dependence, cigarettes, uncomplicated (ICD-10 - F17.210) no smoking for 2 days, using nicotine patch 1. Depression: - Patient reports stable depressive symptoms. Plan: - Continue sertraline 150 mg daily. - Follow up in one month to assess the effectiveness of the current treatment. 2. Insomnia: - Patient reports difficulty falling asleep and staying asleep. Plan: - Continue trazodone 100 mg at bedtime. - Reevaluate sleep quality at the next visit. 3. Tardive dyskinesia: - Patient reports worsening movements, particularly in the mouth. Plan: - Discontinue Austedo 24 mg twice a day (total 48 mg daily). - Start Ingrezza 40 mg daily for one week, then increase to 80 mg daily. - Monitor for side effects and effectiveness at the next appointment. 4. Chronic kidney disease (stage 3b): - Patient's EGFR is 36, indicating mild to moderate kidney dysfunction. Plan: - Continue monitoring kidney function and follow up with the heating equipment repairer as recommended. 6. Smoking cessation: - Patient reports quitting smoking for 2 days and using nicotine patches. Plan: - Congratulate the patient on their progress and encourage continued efforts to quit smoking. - Offer additional support and resources if needed. Follow-up: - Schedule a follow-up appointment in one month to assess the patient's overall progress and response to the changes in medication. 03/09/2024 Nicotine dependence, cigarettes, uncomplicated (ICD-10 - F17.210) smokes 1 ppd cigarettes 1. Tardive Dyskinesia: - Patient reports improvement in symptoms with Ingrezza 80 mg daily. - Continue Ingrezza 80 mg daily for tardive dyskinesia management. 2. Tobacco Use: - Patient has resumed smoking at a rate of one pack per day due to aggravation. Plan: Discuss smoking cessation options and provide resources for support. 3. Depression: - Patient reports increased depression, particularly during the holiday season. - Continue sertraline 150 mg daily for depression and anxiety management. Plan: Encourage patient to seek counseling and check with her insurance for covered providers in her area. 4. Sleep: - Patient is currently taking trazodone 100 mg at bedtime for sleep. - Continue trazodone 100 mg at bedtime as needed for sleep. 5. Family Conflict: - Patient expresses a desire to pursue family counseling with her daughters. Plan: Encourage patient to discuss this option with her daughters and seek appropriate counseling services. 6. Follow-up: - Schedule a follow-up appointment in approximately 3 months to reassess patient's progress and make any necessary adjustments to the treatment plan. 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 Depression: - Patient reports taking Sertraline 150 mg daily. - Mood appears stable despite recent medical issues and family stressors. Plan: - Continue Sertraline 150 mg daily. - Encourage patient to seek support from friends or support groups. - Follow up in three months or sooner if needed. 2. Insomnia: - Patient reports taking Trazodone 100 mg at bedtime. - Sleep has been off and on, with increased sleep since bowel surgery. Plan: - Continue Trazodone 100 mg at bedtime. - Encourage patient to maintain good sleep hygiene. - Monitor sleep quality and adjust treatment as needed during follow-up visits. 3. Tardive Dyskinesia: - Patient reports taking Austedo 24 mg twice a day. - Persistent mouth movements and hand movements during sleep. Plan: - Continue Austedo 24 mg twice a day. - Monitor for any worsening or new abnormal movements. - Follow up in three months or sooner if needed. 4. Tobacco use: - Patient reports smoking a pack of cigarettes every two days. Plan: - Encourage patient to consider smoking cessation strategies and provide resources. - Monitor for any tobacco-relate d health issues during follow-up visits. 5. Sleep apnea: - Patient reports using a CPAP machine and noticing improvement. Plan: - Encourage patient to continue using CPAP machine as prescribed. - Monitor for any changes in sleep quality or apnea symptoms during follow-up visits. 7. Family stressors: - Patient reports feeling hurt and frustrated by lack of support from daughter and grandchildren during recent hospitalizatio ns. Plan: - Encourage patient to seek support from friends, support groups, or consider counseling to cope with family stressors. - Monitor for any impact on mental health during follow-up visits. Follow-up in three months or sooner if needed. 06/23/2024 Nicotine dependence, cigarettes, uncomplicated (ICD-10 - F17.210) smokes 7 cigarettes a day has tried chantix in the past- states it makes her smoke more, Learning About Benefits of Quitting Smoking material was published, Quitting Tobacco: Care Instructions material was published, Deciding About Using Medicines To Quit Smoking material was published, Stopping Smokeless Tobacco Use: Care Instructions material was published 02/09/2024 Chronic obstructive pulmonary disease, unspecified (ICD-10 - J44.9) 1. Depression: - Patient reports stable depressive symptoms. Plan: - Continue sertraline 150 mg daily. - Follow up in one month to assess the effectiveness of the current treatment. 2. Insomnia: - Patient reports difficulty falling asleep and staying asleep. Plan: - Continue trazodone 100 mg at bedtime. - Reevaluate sleep quality at the next visit. 3. Tardive dyskinesia: - Patient reports worsening movements, particularly in the mouth. Plan: - Discontinue Austedo 24 mg twice a day (total 48 mg daily). - Start Ingrezza 40 mg daily for one week, then increase to 80 mg daily. - Monitor for side effects and effectiveness at the next appointment. 4. Chronic kidney disease (stage 3b): - Patient's EGFR is 36, indicating mild to moderate kidney dysfunction. Plan: - Continue monitoring kidney function and follow up with the heating equipment repairer as recommended. 6. Smoking cessation: - Patient reports quitting smoking for 2 days and using nicotine patches. Plan: - Congratulate the patient on their progress and encourage continued efforts to quit smoking. - Offer additional support and resources if needed. Follow-up: - Schedule a follow-up appointment in one month to assess the patient's overall progress and response to the changes in medication. 03/09/2024 Chronic obstructive pulmonary disease, unspecified (ICD-10 - J44.9) 1. Tardive Dyskinesia: - Patient reports improvement in symptoms with Ingrezza 80 mg daily. - Continue Ingrezza 80 mg daily for tardive dyskinesia management. 2. Tobacco Use: - Patient has resumed smoking at a rate of one pack per day due to aggravation. Plan: Discuss smoking cessation options and provide resources for support. 3. Depression: - Patient reports increased depression, particularly during the holiday season. - Continue sertraline 150 mg daily for depression and anxiety management. Plan: Encourage patient to seek counseling and check with her insurance for covered providers in her area. 4. Sleep: - Patient is currently taking trazodone 100 mg at bedtime for sleep. - Continue trazodone 100 mg at bedtime as needed for sleep. 5. Family Conflict: - Patient expresses a desire to pursue family counseling with her daughters. Plan: Encourage patient to discuss this option with her daughters and seek appropriate counseling services. 6. Follow-up: - Schedule a follow-up appointment in approximately 3 months to reassess patient's progress and make any necessary adjustments to the treatment plan. 11/12/2023 Chronic obstructive pulmonary disease, unspecified (ICD-10 - J44.9) 1. Depression: - Patient reports taking Sertraline 150 mg daily. - Mood appears stable despite recent medical issues and family stressors. Plan: - Continue Sertraline 150 mg daily. - Encourage patient to seek support from friends or support groups. - Follow up in three months or sooner if needed. 2. Insomnia: - Patient reports taking Trazodone 100 mg at bedtime. - Sleep has been off and on, with increased sleep since bowel surgery. Plan: - Continue Trazodone 100 mg at bedtime. - Encourage patient to maintain good sleep hygiene. - Monitor sleep quality and adjust treatment as needed during follow-up visits. 3. Tardive Dyskinesia: - Patient reports taking Austedo 24 mg twice a day. - Persistent mouth movements and hand movements during sleep. Plan: - Continue Austedo 24 mg twice a day. - Monitor for any worsening or new abnormal movements. - Follow up in three months or sooner if needed. 4. Tobacco use: - Patient reports smoking a pack of cigarettes every two days. Plan: - Encourage patient to consider smoking cessation strategies and provide resources. - Monitor for any tobacco-relate d health issues during follow-up visits. 5. Sleep apnea: - Patient reports using a CPAP machine and noticing improvement. Plan: - Encourage patient to continue using CPAP machine as prescribed. - Monitor for any changes in sleep quality or apnea symptoms during follow-up visits. 7. Family stressors: - Patient reports feeling hurt and frustrated by lack of support from daughter and grandchildren during recent hospitalizatio ns. Plan: - Encourage patient to seek support from friends, support groups, or consider counseling to cope with family stressors. - Monitor for any impact on mental health during follow-up visits. Follow-up in three months or sooner if needed. 11/12/2023 Other insomnia (ICD-10 - G47.09) 1. Depression: - Patient reports taking Sertraline 150 mg daily. - Mood appears stable despite recent medical issues and family stressors. Plan: - Continue Sertraline 150 mg daily. - Encourage patient to seek support from friends or support groups. - Follow up in three months or sooner if needed. 2. Insomnia: - Patient reports taking Trazodone 100 mg at bedtime. - Sleep has been off and on, with increased sleep since bowel surgery. Plan: - Continue Trazodone 100 mg at bedtime. - Encourage patient to maintain good sleep hygiene. - Monitor sleep quality and adjust treatment as needed during follow-up visits. 3. Tardive Dyskinesia: - Patient reports taking Austedo 24 mg twice a day. - Persistent mouth movements and hand movements during sleep. Plan: - Continue Austedo 24 mg twice a day. - Monitor for any worsening or new abnormal movements. - Follow up in three months or sooner if needed. 4. Tobacco use: - Patient reports smoking a pack of cigarettes every two days. Plan: - Encourage patient to consider smoking cessation strategies and provide resources. - Monitor for any tobacco-relate d health issues during follow-up visits. 5. Sleep apnea: - Patient reports using a CPAP machine and noticing improvement. Plan: - Encourage patient to continue using CPAP machine as prescribed. - Monitor for any changes in sleep quality or apnea symptoms during follow-up visits. 7. Family stressors: - Patient reports feeling hurt and frustrated by lack of support from daughter and grandchildren during recent hospitalizatio ns. Plan: - Encourage patient to seek support from friends, support groups, or consider counseling to cope with family stressors. - Monitor for any impact on mental health during follow-up visits. Follow-up in three months or sooner if needed. 03/09/2024 Other insomnia (ICD-10 - G47.09) 1. Tardive Dyskinesia: - Patient reports improvement in symptoms with Ingrezza 80 mg daily. - Continue Ingrezza 80 mg daily for tardive dyskinesia management. 2. Tobacco Use: - Patient has resumed smoking at a rate of one pack per day due to aggravation. Plan: Discuss smoking cessation options and provide resources for support. 3. Depression: - Patient reports increased depression, particularly during the holiday season. - Continue sertraline 150 mg daily for depression and anxiety management. Plan: Encourage patient to seek counseling and check with her insurance for covered providers in her area. 4. Sleep: - Patient is currently taking trazodone 100 mg at bedtime for sleep. - Continue trazodone 100 mg at bedtime as needed for sleep. 5. Family Conflict: - Patient expresses a desire to pursue family counseling with her daughters. Plan: Encourage patient to discuss this option with her daughters and seek appropriate counseling services. 6. Follow-up: - Schedule a follow-up appointment in approximately 3 months to reassess patient's progress and make any necessary adjustments to the treatment plan. 02/09/2024 Other insomnia (ICD-10 - G47.09) 1. Depression: - Patient reports stable depressive symptoms. Plan: - Continue sertraline 150 mg daily. - Follow up in one month to assess the effectiveness of the current treatment. 2. Insomnia: - Patient reports difficulty falling asleep and staying asleep. Plan: - Continue trazodone 100 mg at bedtime. - Reevaluate sleep quality at the next visit. 3. Tardive dyskinesia: - Patient reports worsening movements, particularly in the mouth. Plan: - Discontinue Austedo 24 mg twice a day (total 48 mg daily). - Start Ingrezza 40 mg daily for one week, then increase to 80 mg daily. - Monitor for side effects and effectiveness at the next appointment. 4. Chronic kidney disease (stage 3b): - Patient's EGFR is 36, indicating mild to moderate kidney dysfunction. Plan: - Continue monitoring kidney function and follow up with the heating equipment repairer as recommended. 6. Smoking cessation: - Patient reports quitting smoking for 2 days and using nicotine patches. Plan: - Congratulate the patient on their progress and encourage continued efforts to quit smoking. - Offer additional support and resources if needed. Follow-up: - Schedule a follow-up appointment in one month to assess the patient's overall progress and response to the changes in medication. 06/23/2024 Other insomnia (ICD-10 - G47.09) 06/23/2024 Encounter for screening for cardiovascular disorders (ICD-10 - Z13.6) 03/09/2024 Drug induced subacute dyskinesia (ICD-10 - G24.01) 1. Tardive Dyskinesia: - Patient reports improvement in symptoms with Ingrezza 80 mg daily. - Continue Ingrezza 80 mg daily for tardive dyskinesia management. 2. Tobacco Use: - Patient has resumed smoking at a rate of one pack per day due to aggravation. Plan: Discuss smoking cessation options and provide resources for support. 3. Depression: - Patient reports increased depression, particularly during the holiday season. - Continue sertraline 150 mg daily for depression and anxiety management. Plan: Encourage patient to seek counseling and check with her insurance for covered providers in her area. 4. Sleep: - Patient is currently taking trazodone 100 mg at bedtime for sleep. - Continue trazodone 100 mg at bedtime as needed for sleep. 5. Family Conflict: - Patient expresses a desire to pursue family counseling with her daughters. Plan: Encourage patient to discuss this option with her daughters and seek appropriate counseling services. 6. Follow-up: - Schedule a follow-up appointment in approximately 3 months to reassess patient's progress and make any necessary adjustments to the treatment plan. 11/12/2023 Drug induced subacute dyskinesia (ICD-10 - G24.01) Tardive Dyskinesia (TD): Care Instructions material was published, Learning About Movement Disorders From Antipsychotic Medicines material was published 1. Depression: - Patient reports taking Sertraline 150 mg daily. - Mood appears stable despite recent medical issues and family stressors. Plan: - Continue Sertraline 150 mg daily. - Encourage patient to seek support from friends or support groups. - Follow up in three months or sooner if needed. 2. Insomnia: - Patient reports taking Trazodone 100 mg at bedtime. - Sleep has been off and on, with increased sleep since bowel surgery. Plan: - Continue Trazodone 100 mg at bedtime. - Encourage patient to maintain good sleep hygiene. - Monitor sleep quality and adjust treatment as needed during follow-up visits. 3. Tardive Dyskinesia: - Patient reports taking Austedo 24 mg twice a day. - Persistent mouth movements and hand movements during sleep. Plan: - Continue Austedo 24 mg twice a day. - Monitor for any worsening or new abnormal movements. - Follow up in three months or sooner if needed. 4. Tobacco use: - Patient reports smoking a pack of cigarettes every two days. Plan: - Encourage patient to consider smoking cessation strategies and provide resources. - Monitor for any tobacco-relate d health issues during follow-up visits. 5. Sleep apnea: - Patient reports using a CPAP machine and noticing improvement. Plan: - Encourage patient to continue using CPAP machine as prescribed. - Monitor for any changes in sleep quality or apnea symptoms during follow-up visits. 7. Family stressors: - Patient reports feeling hurt and frustrated by lack of support from daughter and grandchildren during recent hospitalizatio ns. Plan: - Encourage patient to seek support from friends, support groups, or consider counseling to cope with family stressors. - Monitor for any impact on mental health during follow-up visits. Follow-up in three months or sooner if needed. 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 Depression: - Patient reports stable depressive symptoms. Plan: - Continue sertraline 150 mg daily. - Follow up in one month to assess the effectiveness of the current treatment. 2. Insomnia: - Patient reports difficulty falling asleep and staying asleep. Plan: - Continue trazodone 100 mg at bedtime. - Reevaluate sleep quality at the next visit. 3. Tardive dyskinesia: - Patient reports worsening movements, particularly in the mouth. Plan: - Discontinue Austedo 24 mg twice a day (total 48 mg daily). - Start Ingrezza 40 mg daily for one week, then increase to 80 mg daily. - Monitor for side effects and effectiveness at the next appointment. 4. Chronic kidney disease (stage 3b): - Patient's EGFR is 36, indicating mild to moderate kidney dysfunction. Plan: - Continue monitoring kidney function and follow up with the heating equipment repairer as recommended. 6. Smoking cessation: - Patient reports quitting smoking for 2 days and using nicotine patches. Plan: - Congratulate the patient on their progress and encourage continued efforts to quit smoking. - Offer additional support and resources if needed. Follow-up: - Schedule a follow-up appointment in one month to assess the patient's overall progress and response to the changes in medication. 06/23/2024 Nicotine use (ICD-10 - Z72.0) 06/23/2024 Encounter for screening for depression (ICD-10 - Z13.31) 06/23/2024 Chronic obstructive pulmonary disease, unspecified (ICD-10 - J44.9) 06/23/2024 Kuldip Yusuf is a female patient with a history of depression, anxiety, abnormal movements, and sleep apnea, presenting with improved mood symptoms but persistent sleep disturbances and increased abnormal movements. Depression Assessment: Patient reports experiencing depression, but notes it is not as bad as it has been. This suggests some improvement in depressive symptoms, though they are still present. Patient is currently taking sertraline 150 mg daily for depression management. Plan: - Continue sertraline 150 mg PO daily (100 mg tablet, one and a half tablets) Anxiety Assessment: Patient reports that her anxiety is getting better, indicating some improvement in anxiety symptoms. No specific anxiety-related concerns were discussed during this visit. Abnormal Movements Assessment: Patient reports an increase in abnormal movements despite being prescribed Ingrezza. This suggests that the current treatment may not be adequately controlling the patient's movement disorder. Plan: - Continue Ingrezza 80 mg PO daily - Monitor effectiveness and consider dose adjustment or alternative treatment if movements continue to worsen Sleep Disturbances Assessment: Patient reports significant daytime sleepiness and nighttime insomnia. She describes a pattern of sleeping during the day and having difficulty falling asleep at night. Patient typically watches TV until 11 PM before attempting sleep. 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 Patient has a history of sleep apnea and uses a CPAP machine, which may contribute to her sleep issues. Plan: - Continue trazodone 100 mg PO at bedtime for insomnia - Educate patient on sleep hygiene, emphasizing the importance of avoiding daytime napping - Encourage consistent sleep-wake schedule - Ensure proper use and fit of CPAP machine Nicotine Dependence Assessment: Patient reports smoking about 7 cigarettes per day, reduced from a pack a day. She has previously tried Chantix for smoking cessation. Patient cannot use nicotine replacement therapy due to medical contraindications . No history of seizures reported. Plan: - Start bupropion SR 150 mg PO twice daily (morning and afternoon) for smoking cessation - Educate patient on potential side effects and benefits of bupropion for smoking cessation - Encourage patient to set a quit date and develop a smoking cessation plan Chronic Nausea Assessment: Patient reports persistent nausea and upset stomach, occurring throughout the day and night. She mentions frequent use of anti-nausea medication. A gastric emptying study has been performed to evaluate for possible gastroparesis, but results are pending. Plan: - Follow up on results of gastric emptying study - Consider referral to gastroenterology for further evaluation and management of chronic nausea if not already done Breast Implant Complications Assessment: Patient reports recent ultrasound findings indicating rupture of bilateral breast implants. This information is new and may require further medical attention. Plan: - Advise patient to follow up with her primary care physician or plastic surgeon regarding management of ruptured breast implants the note is transcribed using speech recognition software. It is a reflection of a visit with the patient. It might have some inaccuracy, including medication names and transcribing errors, though efforts have been made to correct them. Plan Of Treatment Next Appt Details Provider Name:Daniele allen, 07/26/2024 01:15:00 PM, [address], [address], [place], [address], Insurance Providers Payer Name Payer Address Payer Phone Subscriber Number Group Number Insured Name Patient Relationship to Insured Coverage Start Date Coverage End Date Medicare-I l Medicare [address] [place] [address] [id number] RODRI YUSUF Self - patient is the insured Medicaid-I l Medicaid [address] [address] [place] [address] [id number] RODRI YUSUF Self - patient is the insured Medical (General) History Medical History History ICD Code Problems: Chronic kidney disease stage 3 Chronic obstructive lung disease 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
--- OUTSIDE RECORDS SUMMARY | 2024-07-14 16:25 | XMS_ITS | Encounter Summary ---
Author Organization [facility] Address [address] [place] [address] Care Team Providers Care Tamale Machine Feeder Name Role Phone Saul Marcelino MD Primary Care Provider [phone] None, Physician Primary Care Provider Unavailabl e Saul Marcelino MD Primary Care Provider [phone] Encounter Details Date Type Department Care Team (Late st Contact Info) Description 11/06/2022 Telephone [facility] - Neurology [address] [facility] [place] [address] Taylor Perry MD Social History Tobacco Use Types Packs/Day Years Used Date Smoking Tobacco: Every Day Cigarettes 0.5 58 Started: 1963; Last attempted to quit: 04/07/2022 Smokeless Tobacco: Never Alcohol Use Standard Drinks/Week Comments Not Currently 0 (1 standard drink = 0.6 oz pur e alcohol) prior 2-3 times a month AUDIT-C Answer Date Recorded Q1: How often do you have a drink containing alcohol? Never 06/05/2022 Q2: How many drinks containi ng alcohol do you have on a typical day when you are drinking? Patient does not drink Frequency of Binge Drinking Not on file 05/2022 Sex and Gender Information Value Date Recorded Sex Assigned at Not on file Gender Identity Not on file Sexual Orientation Not on file COVID-19 Exposure Response Date Recorded In the last 10 days, have yo u been in contact with someone who was confirmed or suspected to have Coronavirus/COVID-19? No / Unsure 10/14/2022 1:07 PM CDT documented as of this encounter Functional Status Functional Status Response Date of Assess ment Is person deaf or have serious hearing difficult y? Yes 08/07/2022 Is person blind or have serious difficulty seein g? No 08/07/2022 Does person have serious dif ficulty walking/climbing stairs? No 08/07/2022 Does person have difficulty dressing/bathing? No 08/07/2022 Does person have difficulty doing errands alone? No 08/07/2022 Cognitive Status Response Date of Assessm ent Does person have difficulty concentrating/remembering/making decisions? No 07/07/2022 documented as of this encounter Miscellaneous Notes * Telephone Encounter - Mariola San - 11/06/2022 12:24 PM CDT Pt called to say that the Amantadine is not covered by her insurance and wants to know what else can you prescribe that is covered documented in this encounter Plan of Treatment Upcoming Encounters Date Type Department Care Team (Late st Contact Info) Description 08/25/2024 3:00 PM CDT Office Visit [facility] - Hematology/Oncology [address] [place] [phone] Aubree Thomas MD [address] [place] [phone] 09/14/2024 2:00 PM CDT Office Visit [facility] - Neurology [address] [place] [address], [place] [phone] Gary Virgen, CAPTION WRITER-POP [address] [place] [address] [place] [phone] 10/17/2024 2:00 PM CDT Office Visit [facility] - Pulmonology [address] [place] [address], [place] [phone] Kunal Lennon MD [address] [place] [address] 2L DIV [place] [address] 11/02/2024 1:00 PM CDT Appointment [facility] DRAW STATION [address] [place] [phone] 11/02/2024 2:00 PM CDT Office Visit [facility] - Nephrology [address] [place] [phone] Adarsh Menendez MD [address] [place] [address] [address] [place] [phone] 11/09/2024 12:30 PM CDT Office Visit [facility] - GI [address] [place] [phone] Raffaele Beck MD [address] [place] [address] [address] [place] [phone] 11/17/2024 3:00 PM CDT Office Visit [facility] - GI [address] [place] [phone] Raffaele Beck MD [address] [place] [address] [address] [place] [phone] 11/21/2024 2:00 PM CDT Office Visit [facility] - Sleep Services [address] [place] [phone] Maura Simmons, APNP-FUR FINISHER TAILOR [address] [place] [address] [address] DIV OF PULMONARY/[place] [address] 02/06/2025 2:00 PM QUALITY ASSURANCE CONSULTANT Appointment [facility] [address] [place] [phone] Beau Myrick MD [address] OF PULMONARY/[place] [address] documented as of this encounter Goals Goal Patient Goal Type Associated Problems Recent Progress Patient-Stated? Author Medication Management General On track( 025 4:47 PM QUALITY ASSURANCE CONSULTANT) Radha De La Fuente RN Note: Expected end date: Ongoing Interventions: Take all medications as prescribed Let your doctor know right away about any changes in your medications Make sure to request a refill of your medication at least one week prior to your last dose documented as of this encounter Visit Diagnoses Not on filedocumented in this encounter Care Teams Tamale Machine Feeder Relationship Specialty Start Date End Date Saul Marcelino MD [address] [place] [address] PCP - General Family Medicine 09/17/22 02/09/24 None, Physician [facility] [place] [address] PCP - General 02/10/24 04/19/24 Saul Marcelino MD [address] [place] [address] PCP - General Family Medicine 04/20/24 documented as of this encounter
--- OUTSIDE RECORDS SUMMARY | 2024-07-14 16:25 | XMS_ITS | Encounter Summary ---
Author Organization [facility] Address [address] [place] [address] Care Team Providers Care Recreational Counselor Name Role Phone Saul Marcelino MD Primary Care Provider [phone] None, Physician Primary Care Provider Unavailabl e Saul Marcelino MD Primary Care Provider [phone] Encounter Details Date Type Department Care Team (Late st Contact Info) Description 07/22/2023 Telephone [facility] - Neurology [address] [facility], [facility] [place] [address] Taylor Perry MD Social History Tobacco Use Types Packs/Day Years Used Date Smoking Tobacco: Former Cigarettes 0.2 60.3 S tarted: 1965 Smokeless Tobacco: Never Comments:Pack of cigarettes lasts about a week Alcohol Use Standard Drinks/Week Comments Not Currently 0 (1 standard drink = 0.6 oz pure alcohol) prior 2-3 times a month, quit 1989 AUDIT-C Answer Date Recorded Q1: How often do you have a drink containing alcohol? Never 01/14/2023 Q2: How many drinks containi ng alcohol do you have on a typical day when you are drinking? Patient does not drink Q3: How often do you have si x or more drinks on one occasion? Never 01/14/2023 Education Answer Date Recorded What is the [...] or have serious hearing difficult y? Yes 06/08/2023 Is person blind or have serious difficulty seein g? No 06/08/2023 Does person have serious dif ficulty walking/climbing stairs? Yes 06/08/2023 Does person have difficulty dressing/bathing? No 06/08/2023 Does person have difficulty doing errands alone? Yes 06/08/2023 Cognitive Status Response Date of Assessm ent Does person have difficulty concentrating/remembering/making decisions? Yes 06/08/2023 documented as of this encounter Miscellaneous Notes * Telephone Encounter - Mariola San - 07/22/2023 3:30 PM CDT Pt is calling in today because she had a CT scan w contrast on her chest and trying to find out theresults. Callback number is [phone] documented in this encounter Plan of Treatment Upcoming Encounters Date Type Department Care Team (Late st Contact Info) Description 08/25/2024 3:00 PM CDT Office Visit [facility] - Hematology/Oncology [address] [place] [phone] Aubree Thomas MD [address] [place] [phone] 09/14/2024 2:00 PM CDT Office Visit [facility] - Neurology [address] [place] [address], [place] [phone] Gary Virgen, OFFICE ASSISTANT-CHEMICAL ENGRAVER [address] [place] [address] [place] [phone] 10/17/2024 2:00 PM CDT Office Visit [facility] - Pulmonology [address] [place] [address], [place] [phone] Kunal Lennon MD [address] [place] [address] 2L DIV [place] [address] 11/02/2024 1:00 PM CDT Appointment [facility] OP DRAW STATION [address] [place] [phone] 11/02/2024 2:00 PM CDT Office Visit [facility] - Nephrology [address] [place] [phone] Adarsh Menendez MD [address] [place] [address] 3L [place] [phone] 11/09/2024 12:30 PM CDT Office Visit [facility] - GI [address] [place] [phone] Raffaele Beck MD [address] [place] [address] 2L [place] [phone] 11/17/2024 3:00 PM CDT Office Visit [facility] - GI [address] [place] [phone] Raffaele Beck MD [address] [place] [address] 2L [place] [phone] 11/21/2024 2:00 PM CDT Office Visit [facility] - Sleep Services [address] [place] [phone] Maura Simmons, APNP-CHEMICAL ENGRAVER [address] [place] [address] 2L DIV OF PULMONARY/[place] [address] 02/06/2025 2:00 PM [employer]AND [employer] CHIEF Appointment [facility] SCAN [address] [place] [phone] Beau Myrick MD [address] OF PULMONARY/[place] [address] documented as of this encounter Goals Goal Patient Goal Type Associated Problems Recent Progress Patient-Stated? Author Medication Management General On track( 025 4:47 PM [employer] CHIEF) Radha De La Fuente RN Note: Expected end date: Ongoing Interventions: Take all medications as prescribed Let your doctor know right away about any changes in your medications Make sure to request a refill of your medication at least one week prior to your last dose documented as of this encounter Visit Diagnoses Not on filedocumented in this encounter Care Teams Recreational Counselor Relationship Specialty Start Date End Date Saul Marcelino MD [address] [place] [address] PCP - General Family Medicine 09/17/22 02/09/24 None, Physician [facility] [place] [address] PCP - General 02/10/24 04/19/24 Saul Marcelino MD [address] [place] [address] PCP - General Family Medicine 04/20/24 documented as of this encounter
--- OUTSIDE RECORDS SUMMARY | 2024-07-14 16:25 | XMS_ITS | Data Portability ---
Author Organization [facility] [place] Address [address] [place] [address] Care Team Providers Care Media Center Director School Name Role Phone TOSHIA MIN Primary Care Provider Assessment Encounter Date Assessment Date Assessment LastModified by Organization Details LastModified Time 07/20/2020 07/20/2020 Annual gynecological exam performed. Patient will come back in a year unless there are new symptoms. Not available 07/20/2020 14:35:42 Plan of Treatment Reminders Order Date Submit Date Provider Last Modified By Organization Details Last Modified Time Details Appointments None recorded. Lab None recorded. Referral oncologist referral - [facility] consult requested 2020 021 alexandria Calderon MD, [address] [place], [address], 15:38:20 Procedures None recorded. Surgeries None recorded. Imaging None recorded. Medication Orders None recorded. Patient TargetsNo targets recorded. Patient InstructionsNo instructions recorded. Reason for Referral [facility] y[facility] consult requested Referring Physician: Gracie Thornton, AUT[employer] BUMPER MECHANIC, Encounter Date: 07/20/2020 Procedures Surgical History Date Name Laterality Status Provider Name and Address Organization Details Recorded Time 08/15/19 16 Date of Last Mammogram completed Brianne [facility] 07/20/2020 15:04:06 04/06/19 15 biopsy of soft tissue of upper arm, superficial completed [facility] 07/20/2020 15:11:44 04/06/19 01 excision of bilateral breasts completed [facility] 07/20/2020 15:13:13 04/06/19 00 insertion of hearing implant in external ear completed [facility] 07/20/2020 15:12:56 04/06/18 96 Total Hysterectomy completed [facility] 07/20/2020 15:12:17 cholecystectomy completed [facility] 07/20/2020 15:11:55 Imaging Results None recorded. Procedure Notes None recorded. Medical Equipment None Reported. Allergies Allergen ID Allergen Name Allergen Category Reaction Reaction Severity Criticality Documentation Date Start Date Code Code System Note Provider Name and Address Organization Details Recorded Time 06072 fluoxetin e medicatio n Not available Not available Not available 07/20/2020 4493 RxNorm [facility] 14:59:44 44243 tetanus and diphtheri a toxoids Not available Not available Not available Not available 07/20/2020 37004 UNK [facility] 14:59:51 Medications Name Sig Start Date Stop Date Status Note LastModified by Organization Details LastModified Time furosemide 40 mg tablet TAKE 1 TABLET BY MOUTH TWICE DAILY 07/20 completed Not Available Not Available Not Available atorvastati n 20 mg tablet TAKE 1 TABLET BY MOUTH DAILY active Not Available Not Available No t Available albuterol sulfate 2.5 mg/3 mL (0.083 %) solution for nebulizatio n INHALE 1 AMPULE VIA NEBULIZER TWICE DAILY NEEDED FOR SHORTNESS OF BREATH OR WHEEZING 07/20 completed Not Available Not Available Not Available ondansetron HCl 4 mg tablet TAKE 1 TABLET BY MOUTH EVERY 6 HOURS NEEDED FOR NAUSEA OR VOMITING 07/20 completed Not Available Not Available Not Available hydrocodone 10 mg-acetamin ophen 325 mg tablet TAKE 1 TABLET BY MOUTH EVERY 6 HOURS NEEDED FOR PAIN active Not Available Not Available No t Available peg-electro lyte solution 420 gram oral solution MIX AND DRINK 8 OUNCES Q 10 MINUTES UNTIL FECAL EFFLUENT IS CLEAR 07/20 completed Not Available Not Available Not Available risperidone 3 mg tablet TAKE 1 TABLET BY MOUTH DAILY active Not Available Not Available No t Available calcium 600 mg (as calcium carbonate 1,500 mg) tablet TK 1 T PO QD active Not Available Not Available No t Available potassium chloride ER 20 mEq tablet,exte nded release(par t/cryst) MIX AND DRINK 1 PACKET BY MOUTH EVERY DAY active Not Available Not Available No t Available famotidine 20 mg tablet TAKE 1 TABLET BY MOUTH DAILY 07/20 completed Not Available Not Available Not Available amlodipine 10 mg tablet TAKE 1 TABLET BY MOUTH DAILY active Not Available Not Available No t Available pantoprazol e 40 mg tablet,ada yed release TK 1 T PO QAM 07/20 completed Not Available Not Available Not Available nortriptyli ne 10 mg capsule TAKE ONE CAPSULE BY MOUTH EVERY NIGHT AT BEDTIME active Not Available Not Available No t Available lidocaine 5 % topical patch APPLY 1 PATCH TO SKIN ONCE DAILY FOR 5 DAYS 07/20 completed Not Available Not Available Not Available lisinopril 30 mg tablet TAKE 1 TABLET BY MOUTH DAILY active Not Available Not Available No t Available levalbutero l 1.25 mg/3 mL solution for nebulizatio n USE 1 VIAL VIA NEBULIZER THREE TIMES DAILY NEEDED FOR SHORTNESS OF BREATH OR WHEEZING active Not Available Not Available No t Available albuterol sulfate HFA 90 mcg/actuati on aerosol inhaler INHALE 2 PUFFS BY MOUTH EVERY 4 TO 6 HOURS NEEDED FOR SHORTNESS OF BREATH OR WHEEZING active Not Available Not Available No t Available Vitamin D3 25 mcg (1,000 unit) tablet TK 1 T PO QD active Not Available Not Available No t Available bupropion HCl XL 150 mg 24 hr tablet, extended release TAKE 1 TABLET BY MOUTH EVERY MORNING active Not Available Not Available No t Available Dulera 200 mcg-5 mcg/actuati on HFA aerosol inhaler INHALE 2 PUFFS BY MOUTH EVERY 12 HOURS 07/20 completed Not Available Not Available Not Available Chantix Starting Month Box 0.5 mg (11)-1 mg (42) tablets in dose pack FOLLOW PACKAGE DIRECTION S 07/20 completed Not Available Not Available Not Available Vitals Date Recorded Body height Body mass index (BMI) Body weight Systolic blood pressure Diastolic blood pressure Provider Name and Address Organization Details Last Updated DateTime 07/20/2020 154.94 cm 38.8 kg/m2 32697.59 g 163 mm[Hg] 84 mm[Hg] Brianne Suarez [facility] 14:54:37 Social History Question Answer Notes LastModified by Organizat ion Details LastModified Time Tobacco Smoking Status Current Every Day Smoker Brianne Suarez [facility], [facility] 07/20/2020 15:11:08 What Is Your Level Of Alcohol Consumption? None Information not available 07/20/2020 Are You Blind Or Do You Have Difficulty Seeing? No Information n ot available 07/20/2020 What Is Your Level Of Caffeine Consumption? None Information not available 07/20/2020 In The 14 Days Before Symptom Onset, Have You Had Close Contact With A Laboratory-confirm ed COVID-19 While That Case Was Ill? No Information n ot available 07/20/2020 In The 14 Days Before Symptom Onset, Have You Had Close Contact With A Person Who Is Under Investigation For COVID-19 While That Person Was Ill? No Information not available 07/20/2020 Have You Been To An Area Known To Be High Risk For COVID-19? No Information not available 07/20/2020 Are You Deaf Or Do You Have Serious Difficulty Hearing? No Information not available 07/20/2020 What Type Of Diet Are You Following? REGULAR Information n ot available 07/20/2020 What Is Your Current Pack Years? 20-29packyea rs Information not available 07/20/2020 Do You Use Your Seat Belt Or Car Seat Routinely? Yes Information not available 07/20/2020 Do You Have Smoke And Carbon Monoxide Detectors In Your Home? Yes Information not available 07/20/2020 How Much Tobacco Do You Smoke? 0.5 PPD Information not available 07/20/2020 Do You Feel Stressed (tense, Restless, Nervous, Or Anxious, Or Unable To Sleep At Night)? [id number] Information not available 07/20/2020 Do You Use Any Illicit Or Recreational Drugs? No Information not available 07/20/2020 Do You Use Sunscreen Routinely? Yes Information not available 07/20/2020 How Many Years Have You Smoked Tobacco? 20 Information not available 07/20/2020 Sex: Unknown Functional Status Question Answer Note LastModified by Organization D etails LastModified Time Are you able to walk? YESWOREST Information not available 07/20/2020 What is your exercise level? None Information not available 07/20/2020 Mental Status None recorded. Family History Relationship Description Onset Age of this Age Resolved Age Notes LastModified by Organization Details LastModified Time Sister Malignant tumor of breast Not available 2020 15:08:30 Sister Malignant tumor of breast Not available 2020 15:08:39 Sister Dementia Not available 0 07/20/2020 15:09:13 Sister Leukemia Not available 0 07/20/2020 15:09:33 Sister Heart disease Not available 2020 15:17:20 Sister Female infertility Not available 07/05 15:18:19 Sister Mental disorder Not available 2020 15:18:35 Sister Seizure disorder Not available 2020 15:18:58 Brother Diabetes mellitus Not available 2020 15:09:48 Brother Diabetes mellitus Not available 2020 15:09:56 Mother Asthma Not available 15:17:04 Maternal Grandfather Diabetes mellitus Not available 2020 15:17:39 Medical History Condition Response Other Arthritis Y High Cholesterol Y Breast Cancer Y Cancer Y Hypertension Y Asthma Y Lung Disease Y Gynecological History Statement/Question Response If Post Menopausal, Age at Menopause Date of Last Mammogram 08/15/2015 Obstetrics History GPAL:G 2 P 2 0 0 2 Type Value Full Term 2 Living 2 Total 2 Past Encounters Encounter ID Performer Location Encounter Start Date Encounter Closed Date Diagnosis/Indication Diagnosis SNOMED-CT Code Diagnosis ICD10 Code Diagnosis Note [id number] Gracie Thornton [facility] [address] [address] 07/20/2020 14:31:05 07/20/2020 15:38:20 Gynecologic examination 49063340 Z01.419 Take Calcium with Vitamin D 12-1500mg daily. Do monthly self breast exams. It is advised to get annual flu shot in the fall and she could obtain at [facility] or [facility] care clinic. If you haven't received the Tdap vaccine in the last 10 years you should obtain one as well. Have mammogram yearly, bone density every 2-3 years and colonoscop y every 5-10 years depending on findings and history. Engage in daily exercise of low impact aerobic exercise 45-60 minutes 4-5 times weekly. Avoid tobacco and illicit drugs as well as using moderation with alcohol intake less than 1-2 8 oz beverages daily. This lifestyle behavior pattern will lead to less health conditions and longer life span. If BMI greater than 25 weight watchers or dietary consult advised. Questions have been answered. Patient appears to understand instructio ns, but if you have any further questions call or respond to this email Fully hysterecto my for non-cancer indication s in 1995. D/C pap unless otherwise indicated per asccp Dexa-order ed by PCP Colon updated PCP 7mos ago. Smoker Likely diagnosed with cancer in 2016 vs 2012 b/c we have a mammo on file [facility]3 in [facility]. [facility] PCP Dr. Ezequiel Min per pt History of malignant neoplasm of breast 803342547 Z85.3 MUST be set up with a new breast cancer specialist [facility]. She has history of breast cancer and has not adequately followed up for additional imaging since her oncologist moved. Likely needs MRI. Her previous doctors were at [facility] but she states that they refused to see her after her provider left. Not sure if we can get the records but she needs to est care with a new provider to ensure she knows what she needs yearly for imaging. Hx of total mastectomy with implants; radiation. Does not recall if they placed her on any medication s after this. Has two other sisters and a young niece that also developed breast cancer. Health Concerns Section Related Observation LastModified by Organization Detai ls LastModified Time None Recorded Concern Status LastModified by Organization Details LastModified Time None Recorded Advance Directives Directive None Recorded Payers Encounter Date Sequence Insurance Name Policy Number Policy Nassar Covered Member ID Nassar Member ID Guarantor Name 07/20/2020 1 [facility] PRIOR TO 10/04/2020 (MEDICAID REPLACEMENT - HMO) Eduarda Mendezd [id number] Yasmine Mendezd Notes Date Note Type Note Provider Name and Address Organization Details Recorded Time 07/20/2020 text/html Annual Business Communications Instructor Post-MenopausalRe ported bypatient.Menopau mayela Symptoms:no menopausal symptoms; normal vaginal lubrication Vaginal Bleeding:history of menopause having occurred; no history of post menopausal bleeding Urinary Symptoms:no hematuria; no incontinence; no nocturia; no urinary frequency Vulva:no genital lesion; no vulvar atrophy Vagina:normal vaginal discharge; no vaginal atrophy Breast:no breast lump; no nipple discharge; no breast pain; Hx breast cancer with radiation Sexual Complaints:no sexual complaints Psychological Symptoms:no depression; no anxiety Preventive Measures:encourag e regular mammograms starting age 40; encourage self breast examination; encourage regular exercise; encourage no tobacco use; history of recent colonoscopy; needs to schedule bone density (Managed by PCP per pt Dr. Ezeuqiel Min) Gracie Thornton, ELISSA- [address], [place], [address], [facility] 07/20/2020 15:29:59 OBGyn Episode Ob Episode Information Episode Created Date Number of Fetuses Patient Bloodtype Patient rh Status Prepregnancy Weight lbs Domestic Partner Domestic Partner Phone Father Name Registered Dental Assistant Status 07/21/19 21 1 CLOSED Fetus Data First Name Last Name Admitted to NICU Weight (g) Sex Living Outcome Pediatric Complications Fetus ID Race Codes Race Delivery Type 2919.77 [id number] F Full Term [id number] Vaginal Delivery Ramone Calculation Initial Ramone Date Initial Exam Date Initial Exam Provider Initial Ultrasound Date Last Menstrual Period Date Ultra Sound Weeks Gestation 0 Eighteen To Twenty Week Ramone Update Ultra Sound Date Fundal Height At Umbil Quickening Date Ultra Sound Latest Weeks Gestation Final Ramone Confirmed By Final Ramone Confirmed Date Final Ramone Date Ultra Sound Latest Days Gestation 0 0 Menstrual History Last Menstrual Date Menses Monthly On Bcp Conception Prior Menses Frequency Hcg Plus Date Menarche Onset Age Delivery Information Delivery Date Delivery Type Labor Anesthesia Weeks Gestation Incision Type Labor Labor Length Hrs Delivered By Post Complications Tubal Sterilization Discharge Date Comments 3 40 Parvin Discharge Information Feeding Method Contraceptive Method Maternal HG B and HCT Levels Ob Episode Information Episode Created Date Number of Fetuses Patient Bloodtype Patient rh Status Prepregnancy Weight lbs Domestic Partner Domestic Partner Phone Father Name Registered Dental Assistant Status 07/21/19 21 1 CLOSED Fetus Data First Name Last Name Admitted to NICU Weight (g) Sex Living Outcome Pediatric Complications Fetus ID Race Codes Race Delivery Type 3259.96 [id number] F Full Term [id number] Vaginal Delivery Ramone Calculation Initial Ramone Date Initial Exam Date Initial Exam Provider Initial Ultrasound Date Last Menstrual Period Date Ultra Sound Weeks Gestation 0 Eighteen To Twenty Week Ramone Update Ultra Sound Date Fundal Height At Umbil Quickening Date Ultra Sound Latest Weeks Gestation Final Ramone Confirmed By Final Ramone Confirmed Date Final Ramone Date Ultra Sound Latest Days Gestation 0 0 Menstrual History Last Menstrual Date Menses Monthly On Bcp Conception Prior Menses Frequency Hcg Plus Date Menarche Onset Age Delivery Information Delivery Date Delivery Type Labor Anesthesia Weeks Gestation Incision Type Labor Labor Length Hrs Delivered By Post Complications Tubal Sterilization Discharge Date Comments 6 40 Dawnna Discharge Information Feeding Method Contraceptive Method Maternal HG B and HCT Levels
--- OUTSIDE RECORDS SUMMARY | 2024-07-14 16:25 | XMS_ITS | Encounter Summary ---
Author Organization [facility] Address [facility]3 [facility] [place] [address] Care Team Providers Care Manager E Commerce Name Role Phone Saul Marcelino MD Primary Care Provider [phone] Reason for Visit * Reason Onset Date Comments MEDICATION REFILL 07/14/2024 Encounter Details Date Type Department Care Team (Late st Contact Info) Description 07/14/2024 Refill [facility] - Cardiology [address] [facility], [address] [phone] Andrés Kaye MD [address] [place] [phone] MEDICATION REFILL Social History Tobacco Use Types Packs/Day Years Used Date Smoking Tobacco: Every Day Cigarettes 0.3 60.3 Started: 1963 Smokeless Tobacco: Never Comments:Pack [...] Description 08/25/2024 3:00 PM CDT Office Visit [facility] - Hematology/Oncology [address] [place] [phone] Aubree Thomas MD [address] [place] [phone] 09/14/2024 2:00 PM CDT Office [facility] - Neurology [address] [place] [address], [place] [phone] Gary Virgen APRN-POP [address] [place] [address] 1L [place] [phone] 10/17/2024 2:00 PM CDT Office Visit [facility] - Pulmonology [address] [place] [address], [place] [phone] Kunal Lennon MD [address] [place] [address] 2L DIV [place] [address] 11/02/2024 1:00 PM CDT Appointment [facility] OP DRAW STATION [address] [place] [address] 11/02/2024 2:00 PM CDT Office Visit [facility] - Nephrology [address] [place] [phone] Adarsh Menendez MD [address] [place] [address] 3L [place] [phone] 11/09/2024 12:30 PM CDT Office Visit [facility] - GI [address] [place] [phone] Raffaele Beck MD [address] [place] [address] 2L [place] [address] 11/17/2024 3:00 PM CDT Office Visit [facility] - GI [address] [place] [phone] Raffaele Beck MD [address] [place] [address] 2L [place] [address] 11/21/2024 2:00 PM CDT Office Visit [facility] - Sleep Services [address] [place] [phone] Maura Simmons, APNP-TRAFFIC CONTROL SPECIALIST [address] [place] [address] 2L DIV OF PULMONARY/[place] [address] 02/06/2025 2:00 PM SUPERVISOR PRODUCT INSPECTION Appointment [facility] CAT SCAN [address] [place] [phone] Beau Myrick MD [address] [place] [address] 2L DIV OF PULMONARY/[place] [address] documented as of this encounter Goals Goal Patient Goal Type Associated Problems Recent Progress Patient-Stated? Author Medication Management General On track( 025 4:47 PM SUPERVISOR PRODUCT INSPECTION) No Radha Bellamy, RN Note: Expected end date: Ongoing Interventions: Take all medications as prescribed Let your doctor know right away about any changes in your medications Make sure to request a refill of your medication at least one week prior to your last dose Safety General On track( 025 4:47 PM SUPERVISOR PRODUCT INSPECTION) No Rebecca De Jesus, RN Note: Expected [...] the bathroom Medication Management General No Dia Graham, RN Note: Expected end date: Ongoing Interventions: Take all medications as prescribed Let your doctor know right away about any changes in your medications Make sure to request a refill of your medication at least one week prior to your last dose documented as of this encounter Visit Diagnoses Not on filedocumented in this encounter Care Teams Manager E Commerce Relationship Specialty Start Date End Date Saul Marcelino MD [address] [place] [phone] PCP - General Family Medicine 04/20/24 documented as of this encounter
--- OUTSIDE RECORDS SUMMARY | 2024-07-14 16:25 | XMS_ITS | Encounter Summary ---
Author Organization [facility] Address [facility]3 [facility] [place] [address] Care Team Providers Care Historical Interpreter Name Role Phone Saul Marcelino MD Primary Care Provider [phone] Reason for Visit * Reason Comments Pancreatitis Encounter Details Date Type Department Care Team (Late st Contact Info) Description 05/03/2024 Telephone [facility] - [address] [facility], [place] [phone] Henrietta Crain RN Pancreatitis Social History Tobacco Use Types Packs/Day Years Used Date Smoking Tobacco: Every Day Cigarettes 0.5 60.3 Started: 1964 Smokeless Tobacco: Never Comments:Pack [...] encounter Miscellaneous Notes * Telephone Encounter - Henrietta Crain RN - 05/04/2024 2:15 PM CST Second call for same problem. Looking for sooner appt with GI team. [employer] message sent to GI team. TRUCTION PROJECT ADMINISTRATOR * Telephone Encounter - Henrietta Crain RN - 05/03/2024 4:22 PM CST Call received from pt to report nausea before and after eating. Reports hard spots in abdomen. BM -black - taking ferrous sulfate. Additionally reports passage of mucous. Taking odansetron, without help. Using miralax daily. Needs sooner appt than August. Call back number [phone]. GI team notified. TRUCTION PROJECT ADMINISTRATOR documented in this encounter Plan of Treatment Upcoming Encounters Date Type Department Care Team (Late st Contact Info) Description 08/25/2024 3:00 PM CDT Office Visit [facility] - Hematology/Oncology [address] [place] [address] Aubree Thomas MD [address] [place] [address] 09/14/2024 2:00 PM CDT [facility] [address] [place] [phone] Gary Virgen, PLASTIC INSTALLER-KENO WRITER / RUNNER [address] [place] [address] 1L [place] [phone] 10/17/2024 2:00 PM CDT Office Visit [facility] - Pulmonology [address] [place] [address], [place] [phone] Kunal Lennon MD [address] [place] [address] 2L [place] [address] 11/02/2024 1:00 PM CDT Appointment [facility] OP DRAW STATION [address] [place] [phone] 11/02/2024 2:00 PM CDT Office Visit [facility] - Nephrology [address] [place] [phone] Adarsh Menendez MD [address] [place] [address] 3L [place] [phone] 11/09/2024 12:30 PM CDT Office Visit [facility] - GI [address] [place] [phone] Raffaele Beck MD [address] [place] [address] 2L [place] [phone] 11/17/2024 3:00 PM CDT Office Visit [facility] - GI [address] [place] [phone] Raffaele Beck MD [address] [place] [address] 2L [place] [phone] 11/21/2024 2:00 PM CDT [facility] [address] [place] [address], [place] [phone] Maura Simmons, EVIN-KENO WRITER / RUNNER [address] [facility] 2L DIV OF PULMONARY/[place] [address] 02/06/2025 2:00 PM CONSTRUCTION PROJECT ADMINISTRATOR Appointment [facility] CAT SCAN [address] [place] [phone] Beau Myrick MD [address] [facility] 2L DIV OF PULMONARY/[place] [address] documented as of this encounter Goals Goal Patient Goal Type Associated Problems Recent Progress Patient-Stated? Author Medication Management General On track( 025 4:47 PM CONSTRUCTION PROJECT ADMINISTRATOR) No Radha Bellamy, RN Note: Expected end date: Ongoing Interventions: Take all medications as prescribed Let your doctor know right away about any changes in your medications Make sure to request a refill of your medication at least one week prior to your last dose Safety General On track( 025 4:47 PM CONSTRUCTION PROJECT ADMINISTRATOR) No Rebecca De Jesus, RN Note: Expected [...] Maintain an unobstructed path to the bathroom documented as of this encounter Visit Diagnoses Not on filedocumented in this encounter Care Teams Historical Interpreter Relationship Specialty Start Date End Date Saul Marcelino MD [address] [place] [phone] PCP - General Family Medicine 04/20/24 documented as of this encounter
--- OUTSIDE RECORDS SUMMARY | 2024-07-14 16:25 | XMS_ITS | Encounter Summary ---
Author Organization [facility] Address [address] [place] [address] Care Team Providers Care Senior Statistician Name Role Phone Timmy Baldwin MD Primary Care Provider [phone] Dontae Min DO Primary Care Provider [phone] Dontae Min DO Primary Care Provider [phone] Saul Marcelino MD Primary Care Provider [phone] None, Physician Primary Care Provider [facility] Saul Marcelino MD Primary Care Provider [phone] Encounter Details Date Type Department Care Team (Latest Contact Info) Description 05/14/2022 Ambulatory Consult [facility] 3L [address] [facility], [place] [phone] Shelley Ortega, KIMO Cystadenoma, hepatobiliary ; Cystic disease of liver; Class 3 severe obesity due to excess calories in adult, unspecified BMI, unspecified whether serious comorbidity present Social History Tobacco Use Types Packs/Day Years [...] suspected to have Coronavirus/COVID-19? 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 documented as of this encounter Plan of Treatment Upcoming Encounters Date Type Department Care Team (Late st Contact Info) Description 08/25/2024 3:00 PM CDT Office Visit [facility] - Hematology/Oncology [address] [place] [phone] Aubree Thomas MD [address] [place] [phone] 09/14/2024 2:00 PM CDT Office Visit [facility] - Neurology [address] [place] [phone] Gary Virgen, FLAGSETTER-BEVERAGE DISTILLER [address] [place] [address] 1L [place] [phone] 10/17/2024 2:00 PM CDT Office Visit [facility] - Pulmonology [address] [place] [address], [place] [phone] Kunal Lennon MD [address] [place] [address] 2L DIV OF [place] [address] 11/02/2024 1:00 PM CDT Appointment [facility] OP DRAW STATION [address] [place] [phone] 11/02/2024 2:00 PM CDT Office Visit [facility] - Nephrology [address] [place] [phone] Adarsh Menendez MD [address] [place] [address] 3L [place] [phone] 11/09/2024 12:30 PM CDT Office Visit [facility] - GI [address] [place] [phone] Raffaele Beck MD [address] [facility] 2L DIV [place] [phone] 11/17/2024 3:00 PM CDT Office Visit [facility] - GI [address] [place] [phone] Raffaele Beck MD [address] [facility] 2L DIV [place] [phone] 11/21/2024 2:00 PM CDT Office Visit [facility] - Sleep Services [address] [place] [phone] Maura Simmons, APELISSA-BEVERAGE DISTILLER [address] [facility] 2L DIV OF PULMONARY/[place] [address] 02/06/2025 2:00 PM ROLL FORMING MACHINE OPERATOR Appointment [facility] CAT SCAN [address] [place] [phone] [place] [address] [place] [address] 2L DIV OF PULMONARY/[place] [address] documented as of this encounter Goals Goal Patient Goal Type Associated Problems Recent Progress Patient-Stated? 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 passages Cystic disease of liver Other specified disorders of liver Class 3 severe obesity due to excess calories in adult, unspecified BMI, unspecified whether serious comorbidity present (HCC) documented in this encounter Care Teams Senior Statistician Relationship Specialty [place] [address] [address] PCP - General 05/12/22 06/03/22 Dontae Min DO [address] [place] [address] PCP - General 06/04/22 06/09/22 Dontae Min DO [address] [place] [address] PCP - General 06/10/22 09/16/22 Saul Marcelino MD [address] [place] [address] PCP - General Family Medicine 09/17/22 02/09/24 None, Physician [address] [place] [address] PCP - General 02/10/24 04/19/24 Saul Marcelino MD [address] [place] [address] PCP - General Family Medicine 04/20/24 documented as of this encounter
--- OUTSIDE RECORDS SUMMARY | 2024-07-14 16:25 | XMS_ITS | Clinical Summary ---
Author Organization [facility] [place] Address [address] [place] [address] Care Team Providers Care Animal Park Code Enforcement Officer Name Role Phone Saul Marcelino MD Primary Care Provider [phone] Source Comments [facility],non-[facility] Affiliates and Associated Physician Practices is amultiple site organization consisting of ambulatory clinics and hospital sitesin [place], [place], [place] and [place]. This disclosure is being madepursuant to the Care Everywhere program and may not contain all information available regarding this patient. Last updated 17.[facility] [place] Allergies Active Allergy Reactions Criticality Noted Date Comments Adhesive Sensitivity Rash Medium 12/20/2019 Cyclobenzaprine Other,Dizziness,Shor t ness of Breath High 11/05/2018 Shock to legs funny feelings in legs and arms funny feelings in legs and arms Other reaction(s): Other (See Comments) Fluoxetine Nausea and/or Vomiting,Swelling,Unk nown Low 09/26/2010 Tetanus Toxoid Rash Medium 09/26/2010 Written Tetanus Medications * Be aware that medications may not be up to date on this document. Alwaysverify current medications with the patient. Medication Sig Dispensed Refills Start Date End Date Status HYDROcodone-aceta minophen (NORCO) 10-325 MG tablet Take 1 (one) tablet by mouth q6h PRN (Pain) 08/01/2016 Active amLODIPine (NORVASC) 10 MG tablet Take 1 (one) tablet by mouth once daily 06/15/2017 Active Aspirin 81 MG CAPS Take 81 mg by mouth once daily Active Cholecalciferol (VITAMIN D3) 25 MCG (1000 UT) Take 1 (one) capsule by mouth once daily 09/07/2021 Active valsartan (Diovan) 160 MG tablet Take 1 (one) tablet by mouth once daily Active sertraline (Zoloft) 100 MG tablet Take 1.5 (one and one-half) tablets by mouth once daily 01/08/2022 Active traZODone (Desyrel) 100 MG tablet Take 1 (one) tablet by mouth at bedtime 12/24/2022 Active meclizine (Antivert) 25 MG tablet Take 1 (one) tablet by mouth 2 times daily as needed for Dizziness 03/02/2023 Active ondansetron, disintegrating, (Zofran ODT) 4 MG tablet Take 1 (one) tablet by mouth every 8 hours as needed for Nausea/Vomiting 05/07/2023 Active atorvastatin (Lipitor) 80 MG tablet Take 1 (one) tablet by mouth at bedtime 90 tablet 3 08/17/2023 Active topiramate (Topamax) 25 MG tabletIndications :Migraine Take 2 (two) tablets by mouth 2 times daily Reasons: Migraine Headache 180 tablet 4 09/22/2023 Active amantadine (Symmetrel) 100 MG capsule TAKE 1 CAPSULE BY MOUTH ONCE DAILY 90 capsule 5 11/02/2023 Active albuterol HFA (Proventil; Ventolin; Proair) 108 (90 Base) MCG/ACT inhaler Inhale 2 (two) puffs by mouth every 4 hours as needed 18 g 4 12/29/2023 Active albuterol (Proventil;Ventol in) (2.5 MG/3ML) 0.083% nebulizer solution Inhale 2.5 (two and one-half) mg by mouth every 6 hours as needed 99 mL 3 12/29/2023 Active FeroSul 325 (65 Fe) MG tablet Take 1 (one) tablet by mouth once daily 11/28/2023 Active isosorbide mononitrate CR 24hr (Imdur) 60 MG tablet TAKE 2 TABLETS BY MOUTH ONCE DAILY 180 tablet 3 01/20/2024 Active carvedilol (Coreg) 25 MG tablet Take 1 (one) tablet by mouth 2 times daily with morning and evening meal 180 tablet 3 01/20/2024 Active Ingrezza 80 MG CAPS Take 1 (one) capsule by mouth once daily 02/10/2024 Active polyethylene glycol (Gavilyte-C) 240 g solution Drink half of prep solution at 5pm the night before colonoscopy. Finish the prep at 4am the day of test. 4000 mL 02/17/2024 Active Additional Information Patient not taking.Reported on 05/23/2024 sodium bicarbonate 650 MG tablet Take 2 (two) tablets by mouth 2 times daily 120 tablet 3 05/04/2024 Active acetaZOLAMIDE ER 12hr (Diamox Sequel) 500 MG capsule TAKE 1 CAPSULE BY MOUTH TWICE DAILY FOR 6 WEEKS 05/17/2024 Active dorzolamide (Trusopt) 2 % ophthalmic solution Instill 1 (one) drop into left eye 3 times daily 05/18/2024 Active umeclidinium-mitra nterol (Anoro Ellipta) 62.5-25 MCG/ACT inhaler Inhale 1 (one) puff by mouth once daily 60 Each 4 06/14/2024 Active nitroGLYCERIN (Nitrostat) 0.4 MG tablet Dissolve 1 (one) tablet under the tongue every 5 minutes as needed for Angina 100 tablet 07/14/2024 Active nitroGLYCERIN (Nitrostat) 0.4 MG tablet Dissolve 1 (one) tablet under the tongue every 5 minutes as needed for Angina 100 tablet 06/25/2022 Discontinue d(Reorder) Active Problems Problem Noted Date Diagnosed Date Bilateral shoulder pain 02/10/2024 Renal disorder 12/08/2023 Overview (05/12/2024): Kidney failure Chest pain, unspecified type 08/17/2023 Chest pain 08/05/2023 Drug-induced tardive dystonia 07/31/2023 Mild recurrent major depression 07/31/2023 Tobacco user 07/31/2023 Stage 3b chronic kidney disease 05/14/2023 Generalized anxiety disorder with panic attacks 05/14/2023 Numbness and tingling 05/14/2023 Leg cramps 05/14/2023 Edentulous 05/14/2023 PND (paroxysmal nocturnal dyspnea) 05/14/2023 SOB (shortness of breath) on exertion 05/14/2023 Restless legs syndrome (RLS) 05/14/2023 Dream enactment behavior 05/14/2023 Sleep drunkenness 05/14/2023 Confusional arousals 05/14/2023 Nightmares 05/14/2023 Sleep talking 05/14/2023 Sleep-related hallucinations 05/14/2023 Night sweats 05/14/2023 Nasal congestion 05/14/2023 Sleep related headaches 05/14/2023 Nocturia more than twice per night 05/14/2023 Chronic insomnia 05/14/2023 Chronic fatigue 05/14/2023 Excessive daytime sleepiness 05/14/2023 Sleep related hypoxia 05/14/2023 BERTA (obstructive sleep apnea) 05/14/2023 Overview (05/23/2024): Split-night PSG peformed on 06/17/2023 showed: Diagnostic: AHI = 36.8/hr RERAI = 47.8/hr minSpO2 = 82% Time spent with SpO2 < 90% = 99.6% of total diagnostic sleep time Therapeutic: CPAP at optimal maximal pressure = 8 cmH2O: AHI = 1.3/hr RERAI = 42.2/hr minSpO2 = 85% Time spent with SpO2 < 90% = 85.8% of total therapeutic sleep time Tardive dyskinesia 05/14/2023 Cystic disease of liver 09/18/2022 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 [place] heart with stable angina pectoris 09/17/2022 Angina pectoris 06/25/2022 Overview (06/25/2022): Added automatically from request for surgery [id number] Nontoxic multinodular goiter 12/28/2020 Overview (02/13/2021): Last Assessment & Plan: S/p right hemithyroidectomy on 11/28/20 Benign pathology Patient is clinically euthyroid. Plan: Patient will have TSH checked in 2 month Follow up with me if needed. MCI (mild cognitive impairment) 12/05/2020 Other secondary parkinsonism 12/05/2020 Hyperparathyroidism 08/14/2020 Overview (02/13/2021): Last Assessment & Plan: S/p surgical removal of right upper and lower parathyroid glans on 11/28/20 Post operative calcium was normal at 8.7 on 12/14/20 Plan: Continue calcium and vitamin D as directed by Dr. Baumann She will have levels checked again in March. Essential hypertension 03/15/2020 Overview (03/28/2020): Last Assessment & Plan: Controlled with medication including Lasix CKD - continue medication per PCP Hypercalcemia 03/15/2020 Overview (03/28/2020): Last Assessment & Plan: Detected on recent labs on 03/09/20 Calcium of 11.6 Creatinine of 1.5 Patient asymptomatic, but on calcium and vitamin D supplements. Differential diagnosis would include parathyroid disease, hypocalcuric hypercalcemia, or less likely malignancy. Plan: Discontinue calcium and vitamin D We will check labs in 2 weeks. Further work up will be decided after we obtain test results Mixed hyperlipidemia 03/15/2020 Hypercalcemia 03/15/2020 Overview (11/18/2020): Last Assessment & Plan: Detected on labs on 03/09/20 Calcium of [...] continue to monitor calcium and kidney functions Absence of both breasts 12/20/2019 Hx of breast reconstruction 12/20/2019 Nicotine dependence, cigaret lila, with other nicotine-induced disorders 07/07/2017 Status post left mastectomy 07/07/2017 Incisional hernia, without obstruction or gangre ne 07/21/2016 Obesity 07/21/2016 Chronic obstructive pulmonary disease 07/21/2016 Xanthelasma of eyelid 01/18/2015 Encounters Date Type Department Care Team Description 07/14/2024 Refill [facility] - Cardiology [address] [facility], [place] [address] [place] [address] Andrés Kaye MD MEDICATION REFILL 07/08/2024 Refill [facility] - Pulmonology [address] [place] [address] Maico Murphy MD Refill Request 07/01/2024 Travel 06/14/2024 1:30 PM CDT Office Visit [facility] - Pulmonology [address] [place] [address] Maico Murphy MD Screening for lung cancer (Primary Dx); Nicotine dependence, cigarettes, uncomplicated; BERTA (obstructive sleep apnea); Centrilobular emphysema; Tobacco abuse; Marijuana abuse; Coronary artery disease of [place] heart with stable angina pectoris, unspecified vessel or lesion type 06/14/2024 Travel 06/10/2024 12:52 PM [facility] - 06/10/2024 11:59 PM [facility] Hospital Encounter [facility] [address] [place] [address] Alfonso Hererra MD Discharge Disposition: Home or Self Care 06/07/2024 10:13 AM [facility] - 06/07/2024 11:59 PM [facility] Hospital Encounter [facility] NUCLEAR MEDICINE [facility] [place] [address] Inocente Renee MD Discharge Disposition: Home or Self Care 06/07/2024 9:42 AM [facility] - 06/07/2024 10:12 AM [facility] Hospital Encounter [facility] NUCLEAR MEDICINE [address] [place] [address] Inocente Renee MD Discharge Disposition: Home or Self Care 06/07/2024 Travel 05/27/2024 11:45 AM [facility] - 05/27/2024 11:59 PM [facility] Hospital Encounter [facility] PFT [address] [place] [address] Viri Sam MD Discharge Disposition: Home or Self Care 05/27/2024 Travel 05/26/2024 Travel 05/23/2024 2:00 PM [facility] Office Visit [facility] - Sleep Services [address] [place] [address] Maura Simmons APNP-FAMILY SPECIALIST BERTA (obstructive sleep apnea) (Primary Dx); Sleep related hypoxia; Chronic obstructive pulmonary disease, unspecified COPD type; Excessive daytime sleepiness; Chronic fatigue; Anemia, unspecified type; Hypocalcemia; Stage 3b chronic kidney disease; Hyperparathyroidism; Grade I diastolic dysfunction; Nocturia more than twice per night; Chronic insomnia; Air leak; CPAP use counseling; Obesity (BMI 30-39.9) 05/23/2024 Travel 05/12/2024 11:00 AM [facility] Office Visit [facility] - GI [address] [place] [phone] Raffaele Beck MD Dysphagia, unspecified type (Primary Dx); Colon cancer screening; Screen for colon cancer 05/12/2024 Travel 05/10/2024 Telephone [facility] - Neurology [address] [place] [phone] Gary Virgen APRN-CNP Care Management 05/05/2024 Telephone [facility] - Sleep Services [address] [place] [address] Radha Sanders Order 05/04/2024 4:50 PM [facility] - 05/04/2024 11:59 PM [facility] Hospital Encounter [facility] LAB OP DRAW STATION [address] [place] [phone] Discharge Disposition: Home or Self Care 05/04/2024 3:30 PM [facility] Office Visit [facility] - Nephrology [address] [place] [phone] Adarsh Menendez MD Stage 3b chronic kidney disease (Primary Dx); Nephrolithiasis 05/04/2024 Travel 05/03/2024 Telephone [facility] GI [address] [place] [phone] Henrietta Crain RN Pancreatitis 05/03/2024 Travel 04/27/2024 1:00 PM [facility] Office Visit [facility] - Plastic Surgery [address] [place] [phone] Alfonso Herrera MD S/P breast reconstruction, bilateral (Primary Dx); Breast implant status; History of left breast cancer 04/27/2024 Travel 04/26/2024 Telephone [facility] - Sleep Services [address] [place] [address] Maura Simmons APNP-FAMILY SPECIALIST Order 04/22/2024 Telephone [facility] - Pulmonology [address] [place] [phone] Maico Murphy MD Allergy Symptoms 04/20/2024 Telephone [facility] - Pulmonology [address] [place] [phone] Maico Murphy MD Medication Issue (Pt calling in regards to stopping flonase due to getting sores inside her nose ) from Last 3 Months Immunizations Name Administration Dates Next Due [facility] primary monoval ent 12+ yr 0.3mL Purple cap 09/23/2020,09/02/2020 FLU VACCINE TRI IIV3 SPLIT IM (FLUVIRIN) 014 INFLUENZA VACCINE, CELL CULT URE, QUADR. (FLUCELVAX QUADRIVALENT; 6MO+) (CCIIV4) 04/04/2021 INFLUENZA VACCINE, HIGH-DOSE , QUADR. (FLUZONE HIGH-DOSE QUADRIVALENT; 65Y+), 0.7 ML (HD-IIV4) 12/29/2023,02/03/2023 INFLUENZA VACCINE, QUADR. (F LUZONE; FLULAVAL; FLUARIX; AFLURIA QUADRIVALENT; 6MO+), 0.5 ML (IIV4) 04/18/2019,01/28/2017,02/21/2013 PNEUMOCOCCAL PCV20 CONJ VAC IM 08/13/2022 PNEUMOCOCCAL PPV VACCINE 02/21/2013 Pneumococcal Pcv13 Conj 02/15/2014 RSV AREXVY 60YR+ 0.5ML 02/10/2023 Family History Medical History Relation Name Comments Diabetes; unknown type Brother 1 Diabetes; unknown type Brother 2 Leukemia Brother 2 Other Brother 3 murder Cancer - Esophageal Father 61 COPD - Chronic Obstructive Pulmonary Disease Mother 68 Cancer Other Family Hx Diabetes Other Family Hx Emphysema Other Family Hx Brain Tumor Sister 1 Cancer Sister 1 Leukemia Sister 1 Renal Disease Sister 1 on ESRD Cancer - Breast Sister 2 Lupus Sister 2 Sleep Disorder - Sleep apnea Sister 2 Cancer - Breast Sister 3 Leukemia Sister 3 Relation Name Status Comments Brother 1 Alive Brother 2 Brother 3 Father 61 Mother 68 Other Family Hx Sister 1 Sister 2 Alive Sister 3 Alive Social History Tobacco Use Types Packs/Day Years Used Date Smoking Tobacco: Every Day Cigarettes 0.3 60.3 Started: 1963 Smokeless Tobacco: Never Tobacco Cessation:Ready to Q uit: Not Asked; Counseling Given: Not Answered Comments:Pack of cigarettes lasts about a week [...] Sign Reading Time Taken Comments Blood Pressure 143/77 06/14/2024 1:26 PM CDT Pulse 50 06/14/2024 1:26 PM CDT Temperature 36.4 C (97.5 F) 05/12/2024 10:51 AM [facility] Respiratory Rate 17 06/14/2024 1:26 PM CDT Oxygen Saturation 98% 06/14/2024 1:26 PM CDT Inhaled Oxygen Concentration - - Weight 73.8 kg (162 lb 9.6 oz) 06/14/2024 1:26 P M CDT Height 154.9 cm (5' 1 ) 06/14/2024 1:26 PM CDT Body Mass Index 30.72 06/14/2024 1:26 PM CDT Plan of Treatment Upcoming Encounters Date Type Department Care Team (Late st Contact Info) Description 08/25/2024 3:00 PM CDT Office Visit [facility] - Hematology/Oncology [address] [place] [phone] Aubree Thomas MD [address] [place] [address] 09/14/2024 2:00 PM CDT Office Visit [facility] - Neurology [address] [place] [address], [place] [phone] Gary Virgen APRN-FAMILY SPECIALIST [address] [place] [address] [address] [place] [phone] 10/17/2024 2:00 PM CDT Office Visit [facility] - Pulmonology [address] [place] [address], [place] [phone] Kunal Lennon MD [address] [place] [address] [address] DIV [place] [address] 11/02/2024 1:00 PM CDT Appointment [facility] LAB OP DRAW STATION [address] [place] [phone] 11/02/2024 2:00 PM CDT Office Visit [facility] - Nephrology [address] [place] [address], [place] [phone] Adarsh Menendez MD [address] [place] [address] [address] [place] [phone] 11/09/2024 12:30 PM CDT Office Visit [facility] - GI [address] [place] [phone] Raffaele Beck MD [address] [place] [address] [address] [place] [phone] 11/17/2024 3:00 PM CDT Office Visit [facility] - GI [address] [facility], [place] [phone] Raffaele Beck MD [address] [facility] [address] [place] [address] 11/21/2024 2:00 PM CDT Office Visit [facility] - Sleep Services [address] [place] [phone] Maura Simmons APNP-FAMILY SPECIALIST [address] [place] [address] 2[address] DIV OF PULMONARY/[place] [address] 02/06/2025 2:00 PM [facility] Appointment [facility] CAT SCAN [address] [place] [phone] Beau Myrick MD [address] [place] [address] 2[address] DIV OF PULMONARY/[place] [address] Health Maintenance Due Date Last Done Comments BONE DENSITY TESTING 1955 COLOGUARD (AGES 45-75) - COLON CA SCREENING 1956 COLON MONITORING 1956 COLONOSCOPY - COLON CA SCREENING 1956 CT COLONOGRAPHY - COLON CA SCREENING 1956 Colorectal Cancer Screening 1956 FIT - COLON CA SCREENING 1956 FLEX SIG - COLON CA SCREENING 1955 MEDICARE AWV 12 MONTHS 1956 DTAP/TDAP/TD VACCINES (1 - Tdap) 11/04/1975 ZOSTER VACCINE (1 of 2) 2006 MAMMOGRAM 10/05/2014 10/05/2012 COVID-19 VACCINE ( season) 2023 02/10/2023, 10/30/2021, 04/04/2021, Additional history exists DEPRESSION SCREENING 04/06/2024 SCREENING FOR DIABETES 05/04/2027 5, 01/06/2024, 08/25/2023, Additional history exists HEPATITIS C SCREENING Completed 08/01/2016 PNEUMOCOCCAL VACCINE 50+ Completed 023, 02/15/2014, 02/21/2013 Respiratory Syncytial Virus (RSV) Vaccine Pt: or over 60 yrs Completed 02/10/2023 INFLUENZA VACCINE Completed 12/29/2023, , 04/04/2021, Additional history exists HEPATITIS B VACCINE Aged Out No longe r eligible based on patient's age to complete this topic HIB VACCINE Aged Out No longer eligi ble based on patient's age to complete this topic HPV VACCINE Aged Out No longer eligi ble based on patient's age to complete this topic MENINGOCOCCAL (Group B) VACCINE SHARED DECISION-MAKING Aged Out No longer eligible based on patient's age to complete this topic MENINGOCOCCAL GROUPS A/C/Y/W VACCINE Aged Out No longer eligible based on patient's age to complete this topic Goals Goal Patient Goal Type Associated Problems Recent Progress Patient-Stated? Author Medication Management General On track( 025 4:47 PM [facility]) No Radha Bellamy, KIMO Note: Expected end date: Ongoing Interventions: Take all medications as prescribed Let your doctor know right away about any changes in your medications Make sure to request a refill of your medication at least one week prior to your last dose Safety General On track( 025 4:47 PM [facility]) No Rebecca De Jesus, RN Note: Expected [...] one week prior to your last dose Medical Devices Implanted Type Area Adobe Ball Mixer Device Identifier Shelf Expiration Date Model / Serial / Lot Sys Cor Stent Sng Xd Mr 2.25mm 20mm Dlv - [id number] Implanted:Qty: 1 on 08/17/2023 by Jeane Lu MD at [facility] Left: Coronary 3nder Nelida [id number] 07/14/2024 [id number] / [id number] Procedures Procedure Name Priority Date/Time Associated Diagnosis Comments US BREAST BILATERAL COMPLETE Routine 06/10/2024 2:13 PM [facility] Breast implant status S/P breast reconstruction, bilateral NM GASTRIC EMPTYING Routine 06/07/2024 1 :21 PM [facility] Dysphagia, unspecified type SIX MINUTE WALK Routine 05/27/2024 3:35 PM [facility] SOB (shortness of breath) on exertion COMPLETE PFT W/WO BRONCHODILATOR Routine 05/27/2024 3:21 PM [facility] SOB (shortness of breath) on exertion BLOOD GASES ART - PFT Routine 05/27/2024 11:46 AM [facility] BERTA (obstructive sleep apnea) Sleep related hypoxia Chronic obstructive pulmonary disease, unspecified COPD type MICROALB/CREAT RATIO URINE RANDOM PANEL Routine 05/04/2024 4:59 PM [facility] Stage 3b chronic kidney disease URINALYSIS REFLEX TO MICROSCOPIC NO CULTURE Routine 05/04/2024 4:59 PM [facility] Stage 3b chronic kidney disease VITAMIN D 25-HYDROXY Routine 05/04/2024 4:55 PM [facility] Stage 3b chronic kidney disease PTH INTACT W/O CALCIUM Routine 4:55 PM [facility] Stage 3b chronic kidney disease MAGNESIUM BLOOD Routine 05/04/2024 4:55 PM [facility] Stage 3b chronic kidney disease RENAL FUNCTION PANEL Routine 05/04/2024 4:55 PM [facility] Stage 3b chronic kidney disease CBC W AUTO DIFFERENTIAL Routine 05/04/2024 4:55 PM [facility] Stage 3b chronic kidney disease EXPOSURE PANEL SOURCE STAT 08/01/2016 1:01 PM CDT from Last 3 Months or Most Recently Relevant to Health Maintenance Results * US Breast Bilateral Complete (06/10/2024 2:13 PM [facility]) Anatomical Region Laterality Modality Breast Bilateral Mammography 06/10/2024 1:27 PM [facility] Impressions 06/10/2024 3:19 PM [facility] IMPRESSION: 1. Intra and extracapsular rupture of the left breast implant 2. Probably intracapsular rupture with a likely small component of extracapsular rupture of the right breast implant 3. Prominent lymph node adjacent to the implant in the lower outer right breast. This is favored to represent a lymph node visualized on CT that is decreased in size slightly from 07/25/2023 to 02/10/2024. RECOMMENDATION: Further management will be dictated by the patient's ordering physician. Dr. Garcia discussed the examination findings and recommendations with the patient at the time of the examination. Patient will also receive the exam results by lay letter. OVERALL ASSESSMENT: BI-RADS CATEGORY 2: BENIGN. I, Renate Garcia MD have personally reviewed and interpreted this examination/study. > Interpreting Provider: Renate Garcia MD on 06/10/2024 3:19 PM Narrative 06/10/2024 3:19 PM [facility] EXAMINATION: COMPLETE BILATERAL (RIGHT AND LEFT) BREAST ULTRASOUND - COMBINED REPORT LOCATION: [facility] EXAM DATE: 06/10/2024 HISTORY: History of left-sided breast cancer status post bilateral mastectomy 2016 and breast reconstruction with silicone implants. Patient reports that over time she has noted progressive inferior migration of her left breast implant. The patient presents for evaluation of implant integrity COMPARISON: 03/16/2024 TECHNIQUE: Complete bilateral high resolution breast ultrasound performed, including all 4 quadrants, the subareolar regions, and the axillae. INTERPRETATION: Right side: Silicone implant is seen in the right mastectomy bed/reconstructed breast. In the right breast at the 4:00 position there is intracapsular rupture with a small amount of extension favored to represent extracapsular rupture. In the right breast at the 8:00 position 10 cm from the nipple at the edge of the implant there is is a lymph node with a cortex measuring the upper limits of normal at 0.4 cm. This likely corresponds to a lymph node that is posterior to the implant on CT. The lymph node appears stable to decreased in size on CT from 07/25/2023 to 02/10/2024. In the left axilla there is one lymph node with a very scant hilum however the cortex is not enlarged. Left side: In the left breast there are capsular calcifications visualized on images in the left breast at the 2:00 position 8 cm from the nipple. In the left breast at the 9:00 position there is extracapsular rupture of the implant. In the left breast at the 12:00 position there is intra and extracapsular rupture of the implant. There is also extracapsular rupture in the left breast the 9:00 position No lymph nodes are visualized in the left axilla. Alfonso Herrera MD ORDERABLES * NM Gastric Emptying (06/07/2024 1:21 PM [facility]) Anatomical Region Laterality Modality Abdomen Nuclear Medicine 06/07/2024 10:4 5 AM [facility] Impressions 06/07/2024 3:38 PM [facility] Impression: Normal gastric emptying based on 5% retention at 3 hours after ingestion of meal. > Dictated by Norma Matos MD (Quantitative Analyst Marketing) 06/07/2024 10:45 AM Rosa Leiva DO have personally reviewed and interpreted this examination/study. > Interpreting Provider: Rosa Lancaster DO on 06/07/2024 3:38 PM Narrative 06/07/2024 3:38 PM [facility] PROCEDURE: NM GASTRIC EMPTYING DATE/TIME OF EXAM: 06/07/2024 10:13 AM CLINICAL INFORMATION: None relevant/not provided if blank. Indication: R13.10: Dysphagia, unspecified type Agent: 0.5mCi of Tc- 99m- sulfur colloid mixed in scrambled egg. History: A 68-year-old female with dysphagia. Patient's BMI is 30 kg/m . Technique: The examination was performed after the ingestion of a standardized meal (scrambled egg substitute (120 g Egg Beater, 60 kcal, equivalent to the volume of 2 large eggs), two slices of bread (120 kcal), strawberry jam (30 g, 75 kcal), and water (120 ml).The meal has a caloric value of 255 kcal: 72% carbohydrate,24% protein, 2% fat and 2% fiber. The meal is labeled with 0.5 mCi of [id number] sulfur colloid. Findings: After ingestion of solid meal, sequential images were obtained up to 4 hours. Immediate,1 hour, 2 hour and 3 hours after ingestion. The percent retention in the stomach is as follows: 1 hour: 44% (Normal range: 37 - 90% ) 2 hour: 14% (Normal range: 30 - 60%) 3 hour: 5% (Normal range<30%) T1/2: 53 minutes (Upper limits 130) Severity of gastroparesis is as follows: Grade 1 (mild): 11-20% Grade 2 (moderate): 21 - 35% Grade 3 (severe): 36-50% Grade 4 (very severe): > 50% Procedure Note Rosa Lancaster DO - 06/07/2024 PROCEDURE: NM GASTRIC EMPTYING DATE/TIME OF EXAM: 06/07/2024 10:13 AM CLINICAL INFORMATION: None relevant/not provided if blank. Indication: R13.10: Dysphagia, unspecified type Agent: 0.5mCi of Tc- 99m- sulfur colloid mixed in scrambled egg. History: A 68-year-old female with dysphagia. Patient's BMI is 30 kg/m . Technique: The examination was performed after the ingestion of a standardized meal (scrambled egg substitute (120 g Egg Beater, 60 kcal, equivalent to the volume of 2 large eggs), two slices of bread (120kcal), strawberry jam (30 g, 75 kcal), and water (120 ml).The meal has acaloric value of 255 kcal: 72% carbohydrate,24% protein, 2% fat and 2% fiber.The meal is labeled with 0.5 mCi of [id number]-ripvyut sulfur colloid. Findings: After ingestion of solid meal, sequential images were obtained up to 4 hours. Immediate,1 hour, 2 hour and 3 hours after ingestion. The percent retention in the stomach is as follows: 1 hour: 44% (Normal range: 37 - 90% ) 2 hour: 14% (Normal range: 30 - 60%) 3 hour: 5% (Normal range<30%) T1/2: 53 minutes (Upper limits 130) Severity of gastroparesis is as follows: Grade 1 (mild): 11-20% Grade 2 (moderate): 21 - 35% Grade 3 (severe): 36-50% Grade 4 (very severe): > 50% Impression: Normal gastric emptying based on 5% retention at 3 hours after ingestionof meal. > Dictated by Norma Matos MD (Quantitative Analyst Marketing) 06/07/2024 10:45AM I, Rosa Lancaster DO have personally reviewed and interpreted this examination/study. > Interpreting Provider: Rosa Lancaster DO on 06/07/2024 3:38 PM Inocente Renee MD NM ORDERABLES * SIX MINUTE WALK (05/27/2024 3:35 PM [facility]) Impressions Viri Sam MD - 05/27/2024 3:35 PM [facility] DEPARTMENT OF PULMONARY, CRITICAL CARE, AND SLEEP MEDICINE SIX MINUTE WALK TEST Eduarda Wall 05/28/2024 Interpretation: The patient walked for 6 minutes on room air at a steady pace with a rollator and covered total distance of 240 meters. On the Nathanael scale at baseline, reported dyspnea was 0.5 and fatigue was 3. At the end of the study, the Nathanael reported dyspnea was 3 and fatigue was 4. There were dizziness and bilateral leg pain reported and oxygen saturation remained 100% throughout the test. IMPRESSION: 1. Total 6 minute walk distance on room air is 240 meters, which is below the lower limit of normal of 298 meters for this patient. 2. Compared to prior study on 08/22/2022, the patients 6 minute walk distance has decreased by 15 meters. Mela Melton MD [facility], [facility] 05/28/2024 1:34 AM I have personally reviewed the fellow's interpretation of the test and made any necessary changes when needed. Viri Sam MD Cannery Tender Engineermanager supply chain Division of Pulmonary, Critical Care and Sleep Medicine [facility] Pager: [phone] Narrative Viri Sam MD - 05/27/2024 3:35 PM [facility] Mela Melton MD 05/28/2024 1:33 AM Procedure Note Mela Melton MD - 05/27/2024 3:35 PM CST Images from the original note were not included. Viri Sam MD RESPIRATORY THERAPY ORDERABLES * COMPLETE PFT W/WO BRONCHODILATOR (05/27/2024 3:21 PM [facility]) Impressions Viri Sam MD - 05/27/2024 3:21 PM [facility] DEPARTMENT OF [facility]ULMONARY, CRITICAL CARE, AND SLEEP MEDICINE PULMONARY FUNCTION TEST Please see technologist's comments mentioned in the report. INTERPRETATION: SPIROMETRY: FVC: decreased. FEV1: decreased. FEV1/FVC ratio is normal. BRONCHODILATOR RESPONSE: There is a significant positive response to bronchodilators. FLOW-VOLUME LOOPS: Inspection of the flow-volume loops shows normal flow-volume loops. LUNG VOLUMES: Lung volumes by body plethysmography show normal total lung volume and normal residual volume. DIFFUSION CAPACITY DLCO: Unadjusted for Hb is decreased. DLCO: Corrected for Hb and COHb is decreased. AIRWAY RESISTANCE The airway resistance is normal and the specific conductance is normal. ARTERIAL BLOOD GAS ANALYSIS: Drawn on room air, shows mild respiratory acidosis and normal oxygenation IMPRESSION: 1. Non-specific ventilatory limitation with positive bronchodilator response. 2. When corrected for Hgb and COHb, DLCO is moderately decreased. 3. Compared with previous study on 08/12/2022, FEV1 decreased by 200 cc, TLC decreased by 550 cc but there is no significant change in FVC or DLCO. Mela Melton MD Pulmonary & Critical Care Fellow, [facility] 1:36 AM 05/28/2024 I have personally reviewed the fellow's interpretation of the test and made any necessary changes when needed. Viri Sam MD Cannery Tender Engineermanager supply chain Division of Pulmonary, Critical Care and Sleep Medicine [facility] Pager: [phone] Narrative Viri Sam MD - 05/27/2024 3:21 PM [facility] Mela Melton MD 05/28/2024 1:33 AM Procedure Note Mela Melton MD - 05/27/2024 3:21 PM CST Images from the original note were not included. Viri Sam MD RESPIRATORY THERAPY ORDERABLES * (ABNORMAL) BLOOD GASES ART - PFT (05/27/2024 11:46 AM [facility]) pH Arterial 7.31(L) 7.35 - 7.45 pH 05/27/2024 12:17 PM [facility] pO2 Arterial 90 80 - 100 mmHg 05/27/2024 12:17 PM [facility] pCO2 Arterial 44 35 - 45 mmHg 12:17 PM [facility] HCO3 Arterial 22.2 20.0 - 30.0 mmol/L 05/27/2024 12:17 PM [facility] BE Arterial -4.0(L) -2.0 - 2.0 mmol/L 05/27/2024 12:17 PM [facility] Oxyhemoglobin Arterial 93.4 % 05/27/2024 12:17 PM [facility] Dexoyhemoglobin (HHB) % 2.4 % 05/27/2024 12:17 PM [facility] Methemoglobin 0.8 0.0 - 2.0 % 05/27/2024 12:17 PM [facility] Carboxyhemoglobin 3.4(H) 0.0 - 2.0 % 2024 12:17 PM [facility] O2 Content Arterial 16.1 Interpret within clinical context ml/dL 05/27/2024 12:17 PM [facility] Hemoglobin by COOX 12.2 12.0 - 15.6 g/dL 05/27/2024 12:17 PM [facility] O2 Saturation Arterial 98 90 - 100 % 05/27/2024 12:17 PM [facility] FI O2 Arterial 21.0 % 05/27/2024 12:17 PM [facility] Blood, arterial ARTERIAL BLOOD SPECIMEN / Unknown Arterial Puncture / Unknown 05/27/2024 11:46 AM [facility] 05/27/2024 11:47 AM [facility] Maura HERNADEZ LAB - BL OOD GASES ORDERABLES Performing Organization Address [facility]/ZIP Co de Phone Number [facility] [address] [place] [address], [place] [phone] * (ABNORMAL) MICROALB/CREAT RATIO URINE RANDOM PANEL (05/04/2024 4:59 PM [facility]) Albumin Random Urine 525.7 Not Established ug/mL 05/04/2024 6:04 PM [facility] Comment:Result obtained by jose e quan. Creatinine Urine 120.26 Not Established mg/dL 05/04/2024 6:04 PM [facility] Urine Albumin/Creati nine Ratio 437(H) <30 mg/g 05/04/2024 6:04 PM [facility] Urine URINE SPECIMEN OBTAINED BY CLEAN CATCH PROCEDURE / Unknown Collection / Unknown 05/04/2024 4:59 PM [facility] 05/04/2024 5:19 PM [facility] Adasrh Menendez MD LAB - URINE CHEMISTR Y ORDERABLES Performing Organization Address City/[facility]/ZIP Co de Phone Number [facility] [address] [place] [address], [facility] [phone] * (ABNORMAL) URINALYSIS REFLEX TO MICROSCOPIC NO CULTURE (05/04/2024 4:59 PM [facility]) Color UA Yellow Straw, Yellow 05/04/2024 5:41 PM [facility] Clarity UA Clear Clear 05/04/2024 5:41 PM [facility] Specific [place] UA 1.014 1.005 - 1.030 05/04/2024 5:41 PM [facility] pH UA 5.0 5.0 - 8.0 pH 05/04/2024 5:41 PM [facility] Protein UA 2+(A) Negative 05/04/2024 5:41 PM [facility] Glucose UA Negative Negative 05/04/2024 5:41 PM [facility] Ketone UA Negative Negative 05/04/2024 5:41 PM [facility] Bilirubin UA Negative Negative 05/04/2024 5:41 PM [facility] Blood UA Negative Negative 05/04/2024 5:41 PM [facility] Nitrite UA Negative Negative 05/04/2024 5:41 PM [facility] Leukocyte Esterase Negative Negative 05/04/2024 5:41 PM [facility] Urobilinogen UA Negative Negative mg/dL 05/04/2024 5:41 PM [facility] RBC UA 3-5 None Seen, 0-2, 3-5 /HPF 05/04/2024 5:41 PM [facility] WBC UA 0-5 None Seen, 0-5 /HPF 05/04/2024 5:41 PM [facility] Squamous Epithelial Cells UA 0-2 None Seen, 0-2, 3-5 /HPF 05/04/2024 5:41 PM [facility] Mucus UA 1+ /LPF 05/04/2024 5:41 PM [facility] Hyaline Casts UA 0-2 None Seen, 0-2 /LPF 05/04/2024 5:41 PM [facility] Urine URINE SPECIMEN OBTAINED BY CLEAN CATCH PROCEDURE / Unknown Collection / Unknown 05/04/2024 4:59 PM [facility] 05/04/2024 5:27 PM [facility] - 05/04/2024 5:41 PM [facility] Adarsh Menendez MD LAB - URINALYSIS ORD ERABLES [facility] [address] [place] [phone], [facility] [phone] * (ABNORMAL) PTH INTACT W/O CALCIUM (05/04/2024 4:55 PM [facility]) PTH Intact 134.2(H) 8.0 - 77.0 pg/mL 05/04/2024 5:52 PM [facility] Blood BLOOD SPECIMEN / Unknown Lab Venipuncture / Unknown 05/04/2024 4:55 PM [facility] 05/04/2024 5:19 PM [facility] Adarsh Menendez MD LAB - CHEMISTRY DESIREE VEE [facility] [address] [place] [address], [facility] [phone] * VITAMIN D 25-HYDROXY (05/04/2024 4:55 PM [facility]) Vitamin D, 25 Hydroxy 41.3 30.0 - 80.0 ng/mL 05/04/2024 6:04 PM [facility] Comment: The recommendations for 25-Hydroxy Vitamin D clinical decision points are as follows: Deficient: <20.0 ng/mL Insufficient: 20.0 - 29.9 ng/mL Sufficient: 30.0 - 100.0 ng/mL Potential Toxicity: >100 ng/mL Reference: The Endocrine Society Clinical Practice Guidelines. 2011 If the 25-Hydroxy Vitamin D results are inconsitent with clinical evidence, it is recommended that follow-up testing using a method such as LC/MS/MS be performed to confirm the result. Blood BLOOD SPECIMEN / Unknown Lab Venipuncture / Unknown 05/04/2024 4:55 PM [facility] 05/04/2024 5:18 PM [facility] Adarsh Menendez MD LAB - CHEMISTRY DESIREE VEE Performing Organization Address City/[facility]/ZIP Co de Phone Number [facility] [address] [place] [address], [facility] [phone] * (ABNORMAL) CBC WITH DIFFERENTIAL (05/04/2024 4:55 PM [facility]) WBC 12.4(H) 4.0 - 10.7 x10E9/L 05/04/2024 5:41 PM [facility] RBC Count 4.00 3.90 - 5.20 x10E12/L 05/04/2024 5:41 PM [facility] Hemoglobin 11.5(L) 11.9 - 15.8 g/dL 05/04/2024 5:41 PM [facility] Hematocrit 36.2 34.8 - 46.1 % 05/04/2024 5:41 PM [facility] MCV 90.5 80.0 - 98.0 fL 05/04/2024 5:41 PM [facility] MCH 28.8 26.7 - 33.6 pg 05/04/2024 5:41 PM [facility] MCHC 31.8 31.7 - 36.3 g/dL 05/04/2024 5:41 PM [facility] RDW-CV 15.7(H) 11.3 - 14.8 % 05/04/2024 5:41 PM [facility] Platelet Count 198 150 - 420 x10E9/L 05/04/2024 5:41 PM [facility] MPV 12.1(H) 7.8 - 11.4 fL 05/04/2024 5:41 PM [facility] Neutrophil % 69.6 41.0 - 74.0 % 05/04/2024 5:41 PM [facility] Lymphocyte % 19.2 17.0 - 47.0 % 05/04/2024 5:41 PM [facility] Monocyte % 6.9 3.0 - 11.0 % 05/04/2024 5:41 PM [facility] Eosinophil % 3.6 0.0 - 7.0 % 05/04/2024 5:41 PM [facility] Basophil % 0.4 0.0 - 1.6 % 05/04/2024 5:41 PM [facility] Immature Granulocytes % 0.3 0.0 - 1.0 % 05/04/2024 5:41 PM [facility] Neutrophil Absolute 8.61(H) 1.60 - 7.50 x10E9/L 05/04/2024 5:41 PM [facility] Lymphocyte Absolute 2.38 1.00 - 4.40 x10E9/L 05/04/2024 5:41 PM [facility] Monocyte Absolute 0.85 0.15 - 1.00 x10E9/L 05/04/2024 5:41 PM [facility] Eosinophil Absolute 0.44 0.00 - 0.60 x10E9/L 05/04/2024 5:41 PM [facility] Basophil Absolute 0.05 0.00 - 0.13 x10E9/L 05/04/2024 5:41 PM [facility] Blood BLOOD SPECIMEN / Unknown Lab Venipuncture / Unknown 05/04/2024 4:55 PM [facility] 05/04/2024 5:19 PM [facility] Adarsh Menendez MD LAB - HEMATOLOGY ORD ERABLES [facility] [address] [place] [address], [facility] [phone] * (ABNORMAL) RENAL FUNCTION PANEL (05/04/2024 4:55 PM [facility]) BUN 34(H) 7 - 26 mg/dL 05/04/2024 5:46 PM [facility] Creatinine 1.75(H) 0.56 - 0.96 mg/dL 05/04/2024 5:46 PM [facility] Sodium 141 136 - 145 mmol/L 05/04/2024 5:46 PM [facility] Potassium 3.9 3.5 - 4.5 mmol/L 05/04/2024 5:46 PM [facility] Chloride 107 98 - 107 mmol/L 05/04/2024 5:46 PM [facility] CO2 26 22 - 29 mmol/L 05/04/2024 5:46 PM [facility] Glucose 100(H) 70 - 99 mg/dL 05/04/2024 5:46 PM [facility] Albumin 2.9(L) 3.4 - 5.0 g/dL 05/04/2024 5:46 PM [facility] Calcium 8.2(L) 8.4 - 10.2 mg/dL 05/04/2024 5:46 PM [facility] Phosphorus 3.9 2.9 - 5.1 mg/dL 05/04/2024 5:46 PM [facility] Anion Gap 8 6 - 16 05/04/2024 5:46 PM [facility] BUN/Creatinine Ratio 19 7 - 23 05/04/2024 5:46 PM [facility] Osmolality Calculated 300(H) 275 - 295 mOsm/kg 05/04/2024 5:46 PM [facility] eGFR by CKD-EPI 32(L) >=90 mL/min/1.7 3 m2 05/04/2024 5:46 PM [facility] Blood BLOOD SPECIMEN / Unknown Lab Venipuncture / Unknown 05/04/2024 4:55 PM [facility] 05/04/2024 5:18 PM [facility] Adarsh Menendez MD LAB - CHEMISTRY DESIREE VEE Performing Organization Address City/[facility]/ZIP Co de Phone Number [facility] [address] [place] [address], [place] [phone] * MAGNESIUM BLOOD (05/04/2024 4:55 PM [facility]) Pathologist [facility] Magnesium 1.9 1.6 - 2.6 mg/dL 05/04/2024 5:46 PM [facility] Blood BLOOD SPECIMEN / Unknown Lab Venipuncture / Unknown 05/04/2024 4:55 PM [facility] 05/04/2024 5:18 PM [facility] Adarsh Menendez MD LAB - CHEMISTRY DESIREE VEE Performing Organization Address [facility]/ZIP Co de Phone Number [address] [address], [place] [phone] * EXPOSURE PANEL SOURCE (08/01/2016 1:01 PM CDT) HIV Antigen/Antibody 1 & 2 Non-react [facility][1] Comment: Neither HIV-1 p24 Antigen nor HIV-1/HIV-2 Antibodies are detected. Hepatitis C Antibody Non-react [facility][1] Comment: Hepatitis C Antibody screen indicates no serologic evidence of past or current infection with Hepatitis C Virus. Patients with unexplained liver disease who are immunocompromised or suspected of having acute Hepatitis C infection may benefit from Nucleic Acid Test (LUMA) for Hepatitis C Viral RNA to confirm Hepatitis C status. Hepatitis B Virus Surface Antigen Non-react [facility][1] Hepatitis B Core Virus Antibody IgM Non-react reji Non-reac tive [facility] Blood specimen (specimen) BLOOD SPECIMEN / Unknown 08/01/2016 1:01 PM CDT 08/01/2016 1:01 PM CDT River Daugherty MD LAB - CHEMISTR Y ORDERABLES [facility] [address] [phone] from Last 3 Months or Most Recently Relevant to Health Maintenance Advance Directives * Full Code (Latest Code Status on File) Date Activated Date Inactivated Comments 08/17/2023 9:20 AM 08/17/2023 2:23 PM * Full Code Date Activated Date Inactivated Comments 08/17/2023 9:06 AM 08/17/2023 9:20 AM * Full Code Date Activated Date Inactivated Comments 07/01/2022 12:41 PM 07/01/2022 3:54 PM Care Teams Animal Park Code Enforcement Officer Relationship Specialty Start Date End Date Saul Marcelino MD [address] [place] [phone] PCP - General Family Medicine 04/20/24
[2024-07-14 17:10] VITALS: BP 145/74; PULSE 55; RESP 15; TEMP 36.4; O2SAT 97
--- NOTE | 2024-07-14 19:14 | PC.NURSE ---
Patient electing to leave I can't see to drive in the dark . Encouraged to return if feeling worse
--- OUTSIDE RECORDS SUMMARY | 2024-07-14 19:37 | XMS_ITS | Encounter Summary ---
Author Organization [facility] Address [address] [facility] [place] [address] Care Team Providers Care Manager Credit Risk Name Role Phone Timmy Baldwin MD Primary Care Provider [phone] Dontae Min DO Primary Care Provider [phone] Dontae Min DO Primary Care Provider [phone] Saul Marcelino MD Primary Care Provider [phone] None, Physician Primary Care Provider [facility] Saul Marcelino MD Primary Care Provider [phone] Encounter Details Date Type Department Care Team (Latest Contact Info) Description 05/14/2022 Ambulatory Consult [facility] TXP NOE CSM 3L [address] [facility], [place] [phone] Shelley Ortega, KIMO Cystadenoma, hepatobiliary ; Cystic [...] Coronavirus/COVID-19? No / Unsure 04/24/2022 1:12 PM YOKER MACHINE OPERATOR documented as of this encounter Plan of Treatment Upcoming Encounters Date Type Department Care Team (Late st Contact Info) Description 08/25/2024 3:00 PM CDT Office Visit [facility] - Hematology/Oncology [address] [place] [phone] Aubree Thomas MD [address] [place] [phone] 09/14/2024 2:00 PM CDT Office Visit [facility] - Neurology [address] [place] [phone] Gary Virgen, POSTPARTUM RN-IT SOFTWARE ENGINEER [address] [place] [address] 1L [place] [phone] 10/17/2024 2:00 PM CDT Office Visit [facility] - Pulmonology [address] [place] [address], [place] [phone] Kunal Lennon MD [address] [place] [address] 2L DIV OF GEN [place] [address] 11/02/2024 1:00 PM CDT Appointment [facility] LAB OP DRAW STATION [address] [place] [phone] 11/02/2024 2:00 PM CDT Office Visit [facility] - Nephrology [address] [place] [phone] Adarsh Menendez MD [address] [place] [address] 3L DIV [place] [phone] 11/09/2024 12:30 PM CDT Office Visit [facility] - GI [address] [place] [phone] Raffaele Beck MD [address] [facility] 2L DIV [place] GASTRO[place] [phone] 11/17/2024 3:00 PM CDT Office Visit [facility] - GI [address] [place] [phone] Raffaele Beck MD [address] [facility] 2L DIV [place] GASTRO[place] [phone] 11/21/2024 2:00 PM CDT Office Visit [facility] - Sleep Services [address] [place] [phone] Maura Simmons, APELISSA-IT SOFTWARE ENGINEER [address] [facility] 2L DIV OF PULMONARY/[place] [address] 02/06/2025 2:00 PM YOKER MACHINE OPERATOR Appointment [facility] CAT SCAN [address] [place] [phone] [place] [address] [place] [address] 2L DIV OF PULMONARY/[place] [address] documented as of this encounter Goals Goal Patient Goal Type Associated Problems Recent Progress Patient-Stated? Author Medication Management General On track( 025 4:47 PM YOKER MACHINE OPERATOR) Radha De La Fuente, KIMO Note: Expected end date: Ongoing Interventions: [...] (HCC) documented in this encounter Care Teams Manager Credit Risk Relationship Specialty [place] [id number] [address] PCP - General 05/12/22 06/03/22 Dontae Min DO [address] [place] [address] PCP - General 06/04/22 06/09/22 Dontae Min DO [address] [place] [address] PCP - General 06/10/22 09/16/22 Saul Marcelino MD [address] [place] [address] PCP - General Family Medicine 09/17/22 02/09/24 None, Physician [address] [place] [address] PCP - General 02/10/24 04/19/24 Saul Marcelino MD [address] [place] [address] PCP - General Family Medicine 04/20/24 documented as of this encounter
--- OUTSIDE RECORDS SUMMARY | 2024-07-14 19:37 | XMS_ITS | Encounter Summary ---
Author Organization [facility] Address [address] [facility] [place] [address] Care Team Providers Care Aluminum Boat Assembly Supervisor Name Role Phone Saul Marcelino MD Primary Care Provider [phone] Reason for Visit * Reason Comments Refill Request Encounter Details Date Type Department Care Team (Late st Contact Info) Description 07/08/2024 Refill [facility] - Pulmonology [address] [facility], [place] [address] Maico Murphy MD [address] [place] [address] Refill Request Social History Tobacco Use Types [...] Description 08/25/2024 3:00 PM CDT Office Visit [facility] - Hematology/Oncology [address] [place] [phone] Aubree Thomas MD [address] [place] [phone] 09/14/2024 2:00 PM CDT Office Visit [facility] - Neurology [address] [place] [phone] Gary Virgen, MAT WORKER-ADJUNCT TRAINER [address] [place] [address] 1L [place] [address] 10/17/2024 2:00 PM CDT Office Visit [facility] - Pulmonology [address] [place] [address], [place] [phone] Kunal Lennon MD [address] [place] [address] 2L DIV OF [place] [address] 11/02/2024 1:00 PM CDT Appointment [facility] OP DRAW STATION [address] [place] [phone] 11/02/2024 2:00 PM CDT Office Visit [facility] - Nephrology [address] [place] [phone] Adarsh Menendez MD [address] [place] [address] 3L [place] [address] 11/09/2024 12:30 PM CDT Office Visit [facility] - GI [address] [place] [phone] Raffaele Beck MD [address] [place] [address] 2L DIV [place] [address] 11/17/2024 3:00 PM CDT Office Visit [facility] - GI [address] [place] [phone] Raffaele Beck MD [address] [place] [address] 2L DIV [place] [address] 11/21/2024 2:00 PM CDT Office Visit [facility] - Sleep Services [address] [place] [phone] Maura Simmons, APELISSA-ADJUNCT TRAINER [address] [place] [address] 2L DIV OF PULMONARY/[place] [address] 02/06/2025 2:00 PM PHARMACY RESIDENT Appointment [facility] CAT SCAN [address] [place] [phone] Beau Myrick MD [address] [facility] 2L DIV OF PULMONARY/[place] [address] documented as of this encounter Goals Goal Patient Goal Type Associated Problems Recent Progress Patient-Stated? Author Medication Management General On track( 025 4:47 PM PHARMACY RESIDENT) No Radha Bellamy, RN Note: Expected end date: Ongoing Interventions: Take all medications as prescribed Let your doctor know right away about any changes in your medications Make sure to request a refill of your medication at least one week prior to your last dose Safety General On track( 025 4:47 PM PHARMACY RESIDENT) No Rebecca De Jesus, RN Note: Expected [...] disorder documented in this encounter Care Teams Aluminum Boat Assembly Supervisor Relationship Specialty Start Date End Date Saul Marcelino MD [address] [place] [address] PCP - General Family Medicine 04/20/24 documented as of this encounter
--- OUTSIDE RECORDS SUMMARY | 2024-07-14 19:37 | XMS_ITS | Encounter Summary ---
Author Organization [facility] Address [address] [facility] [place] [address] Care Team Providers Care Bmw Service Technician Name Role Phone Saul Marcelino MD Primary Care Provider [phone] None, Physician Primary Care Provider Unavailabl e Saul Marcelino MD Primary Care Provider [phone] Encounter Details Date Type Department Care Team (Late st Contact Info) Description 11/06/2022 Telephone [facility] - Neurology [address] [facility], [facility] [place] [address] Taylor Perry MD Social History [...] Description 08/25/2024 3:00 PM CDT Office Visit [facility] - Hematology/Oncology [address] [place] [phone] Aubree Thomas MD [address] [place] [phone] 09/14/2024 2:00 PM CDT Office Visit [facility] - Neurology [address] [place] [address], [place] [phone] Gary Virgen, PIGMENT PUSHER-POP [address] [place] [address] [place] [phone] 10/17/2024 2:00 PM CDT Office Visit [facility] - Pulmonology [address] [place] [address], [place] [phone] Kunal Lennon MD [address] [place] [address] 2L DIV [place] [address] 11/02/2024 1:00 PM CDT Appointment [facility] LAB OP DRAW STATION [address] [place] [phone] 11/02/2024 2:00 PM CDT Office Visit [facility] - Nephrology [address] [place] [phone] Adarsh Menendez MD [address] [place] [address] 3L [place] [address] 11/09/2024 12:30 PM CDT Office Visit [facility] - GI [address] [place] [phone] Raffaele Beck MD [address] [place] [address] 2L [place] [address] 11/17/2024 3:00 PM CDT Office Visit [facility] - GI [address] [place] [phone] Raffaele Beck MD [address] [place] [address] 2L [place] [address] 11/21/2024 2:00 PM CDT Office Visit [facility] - Sleep Services [address] [place] [address] Maura Simmons, APNP-CORE WINDER [address] [place] [address] 2L DIV OF PULMONARY/[place] [address] 02/06/2025 2:00 PM CLOSING AGENT Appointment [facility] CAT SCAN [address] [place] [phone] Beau Myrick MD [address] OF PULMONARY/[place] [address] documented as of this encounter Goals Goal Patient Goal Type Associated Problems Recent Progress Patient-Stated? Author Medication Management General On track( 025 4:47 PM CLOSING AGENT) Radha De La Fuente RN Note: Expected end date: Ongoing Interventions: Take all medications as prescribed Let your doctor know right away about any changes in your medications Make sure to request a refill of your medication at least one week prior to your last dose documented as of this encounter Visit Diagnoses Not on filedocumented in this encounter Care Teams Bmw Service Technician Relationship Specialty Start Date End Date Saul Marcelino MD [address] [place] [address] PCP - General Family Medicine 09/17/22 02/09/24 None, Physician Replaced by [facility] [place] [address] PCP - General 02/10/24 04/19/24 Saul aMrcelino MD [address] [place] [address] PCP - General Family Medicine 04/20/24 documented as of this encounter
--- OUTSIDE RECORDS SUMMARY | 2024-07-14 19:37 | XMS_ITS | Encounter Summary ---
Author Organization [facility] Address [facility] [place] [address] Care Team Providers Care Licensed Funeral Director Name Role Phone Saul Marcelino MD Primary Care Provider [phone] None, Physician Primary Care Provider Unavailabl e Saul Marcelino MD Primary Care Provider [phone] Reason for Visit * Reason Onset Date Comments Hospital Follow-up 11/25/2023 Encounter Details Date Type Department Care Team (Late st Contact Info) Description 11/25/2023 Telephone [facility] - Cardiology [address] [facility], [place] [address] [place] [address] Andrés Kaye MD [facility] [place] [address] [place], [place] [phone] Hospital Follow-up Social History Tobacco Use Types [...] and was advised to f.u with her flue blower prior to being discharged Patient Call Back number: [phone] documented in this encounter Plan of Treatment Upcoming Encounters Date Type Department Care Team (Late st Contact Info) Description 08/25/2024 3:00 PM CDT Office Visit [facility] - Hematology/Oncology [address] [place] [address] Aubree Thomas MD [address] [place] [address] 09/14/2024 2:00 PM CDT Office Visit [facility] - Neurology [address] [place] [address], [facility] [place] [address] Gary Virgen APRN-POP [address] [place] [address] [place] [address] 10/17/2024 2:00 PM CDT Office Visit [facility] - Pulmonology [address] [place] [address], [place] [phone] Kunal Lennon MD [address] [place] [address] 2L DIV OF GEN [place] [address] 11/02/2024 1:00 PM CDT Appointment [facility] OP DRAW STATION [address] [place] [phone] 11/02/2024 2:00 PM CDT [facility] Ne[facility] [address] [place] [phone] Adarsh Menendez MD [address] [place] [address] 3L DIV [place] [address] 11/09/2024 12:30 PM CDT Office Visit [facility] - GI [address] [place] [phone] Raffaele Beck MD [address] [place] [address] 2L DIV [place]STR[place] [address] 11/17/2024 3:00 PM CDT Office Visit [facility] - GI [address] [place] [phone] Raffaele Beck MD [address] [place] [address] 2L DIV [place] [address] 11/21/2024 2:00 PM CDT Office Visit [facility] - Sleep Services [facility] [place] [phone] Maura Simmons, APNP-KETTLE ROOM HELPER [address] [place] [address] 2L DIV OF PULMONARY/[place] [address] 02/06/2025 2:00 PM HARBOR MASTER Appointment [facility] CAT SCAN [address] [place] [address] Beau Myrick MD [address] [facility] 2L DIV OF PULMONARY/[place] [address] documented as of this encounter Goals Goal Patient Goal Type Associated Problems Recent Progress Patient-Stated? Author Medication Management General On track( 025 4:47 PM HARBOR MASTER) Radha De La Fuente RN Note: Expected end date: Ongoing Interventions: Take all medications as prescribed Let your doctor know right away about any changes in your medications Make sure to request a refill of your medication at least one week prior to your last dose documented as of this encounter Visit Diagnoses Not on filedocumented in this encounter Care Teams Licensed Funeral Director Relationship Specialty Start Date End Date Saul Marcelino MD [address] [place] [address] PCP - General Family Medicine 09/17/22 02/09/24 None, Physician [address] [place] [address] PCP - General 02/10/24 04/19/24 Saul Marcelino MD [address] [place] [address] PCP - General Family Medicine 04/20/24 documented as of this encounter
--- OUTSIDE RECORDS SUMMARY | 2024-07-14 19:37 | XMS_ITS | Referral Summary ---
Author Organization [facility] Building A Address [address] [place] [address] Care Team Providers Care Oil Pipe Inspector Helper Name Role Phone Dontae Min DO Primary Care Provider [phone] Allergies Active Allergy Reactions Criticality Noted Date [...] artery disease of n ative artery of [place] heart with stable angina pectoris 09/17/2022 Nontoxic [...] 03/15/2020 Assessment & Plan (04/26/2020 3:09 PM SENIOR INFORMATICA DEVELOPER): Controlled with medication including Lasix CKD - continue medication per PCP Assessment & Plan (03/15/2020 3:58 PM SENIOR INFORMATICA DEVELOPER): Controlled with medication including Lasix CKD - continue medication per PCP Mixed hyperlipidemia 03/15/2020 Hypercalcemia 03/15/2020 Assessment & Plan (04/26/2020 3:09 PM SENIOR INFORMATICA DEVELOPER): Detected on labs on 03/09/20 Calcium of [...] functions Assessment & Plan (03/15/2020 3:57 PM SENIOR INFORMATICA DEVELOPER): Detected on recent labs on 03/09/20 Calcium [...] on file Legal Sex Female 12:19 AM SENIOR INFORMATICA DEVELOPER Gender Identity Not on file Sexual Orientation [...] PM CDT MR Weber Mamm R Acc#: [id number] DATE OF EXAM: Oct 05 2012 Performed [...] technology 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 [...] - 08/07/2016 MR Weber Mamm R Acc#: [id number] DATE OF EXAM: Oct 05 2012 Performed [...] Most Recently Relevant to Health Maintenance Insurance [facility] MEDICARE MEDICARE IDPA Advance Directives For more information, please contact: [phone] * Full Code (Latest Code Status on File) Date Activated Date Inactivated Comments 11/28/2020 7:15 PM 11/29/2020 7:45 PM Care Teams Oil Pipe Inspector Helper Relationship Specialty Start Date End Date Dontae Min DO PCP - General Internal Medicine 09/28/20
--- OUTSIDE RECORDS SUMMARY | 2024-07-14 19:37 | XMS_ITS | CONTINUITY OF CARE DOCUMENT ---
Author Name mima guillermo Address Unknown Organization [facility] Address [address] [place] [address] Phone [phone] Care Team Providers Care Inspector Repairer Name Role Phone mima guillermo Unavailable Unavailable INSURANCE PROVIDERS Payer name Policy type / Coverage type Jeff red libertarian [employer] [facility] Medicaid 0 [id number]
--- OUTSIDE RECORDS SUMMARY | 2024-07-14 19:37 | XMS_ITS | Encounter Summary ---
Author Organization [facility] Address [address] [facility] [place] [address] Care Team Providers Care Skin Lap Bonder Name Role Phone Saul Marcelino MD Primary Care Provider [phone] None, Physician Primary Care Provider Unavailabl e Saul Marcelino MD Primary Care Provider [phone] Reason for Visit * Reason Onset Date Comments Update 08/17/2023 Encounter Details Date Type Department Care Team (Late st Contact Info) Description 08/17/2023 Telephone [facility] - Centralized Scheduling [address] [place] [address] Ness Burton, AuD [address] [facility] [address] [place] [address] Update Social History Tobacco Use Types Packs/Day [...] be here tomorrow at 3:30pm. Her phone: [phone] documented in this encounter Plan of Treatment Upcoming Encounters Date Type Department Care Team (Late st Contact Info) Description 08/25/2024 3:00 PM CDT Office Visit [facility] - Hematology/Oncology [address] [place] [address] Aubree Thomas MD [address] [place] [address] 09/14/2024 2:00 PM CDT Office Visit [facility] - Neurology [address] [place] [address], [place] [phone] Gary Virgen APRN-LEAD DEVELOPER [address] [place] [address] [place] [address] 10/17/2024 2:00 PM CDT Office Visit [facility] - Pulmonology [address] [place] [phone] Kunal Lennon MD [address] [place] [address] 2L DIV [place] [address] 11/02/2024 1:00 PM CDT Appointment [facility] OP DRAW STATION [address] [place] [phone] 11/02/2024 2:00 PM CDT Office Visit [facility] - Nephrology [address] [place] [phone] Adarsh Menendez MD [address] [place] [address] 3L [place] [address] 11/09/2024 12:30 PM CDT Office Visit [facility] - GI [address] [place] [phone] Raffaele Beck MD [address] [place] [address] 2L [place] [address] 11/17/2024 3:00 PM CDT Office Visit [facility] - GI [address] [place] [phone] Raffaele Beck MD [address] [place] [address] 2L [place] [address] 11/21/2024 2:00 PM CDT Office Visit [facility] - Sleep Services [address] [place] [address] Maura Simmons, APNP-LEAD DEVELOPER [address] [place] [address] 2L DIV OF PULMONARY/[place] [address] 02/06/2025 2:00 PM CHILD WELFARE SOCIAL WORKER Appointment [facility] CAT SCAN [address] [place] [address] Beau Myrick MD [address] [facility] 2L DIV OF PULMONARY/[place] [address] documented as of this encounter Goals Goal Patient Goal Type Associated Problems Recent Progress Patient-Stated? Author Medication Management General On track( 025 4:47 PM CHILD WELFARE SOCIAL WORKER) Radha De La Fuente RN Note: Expected end date: Ongoing Interventions: Take all medications as prescribed Let your doctor know right away about any changes in your medications Make sure to request a refill of your medication at least one week prior to your last dose documented as of this encounter Visit Diagnoses Not on filedocumented in this encounter Care Teams Skin Lap Bonder Relationship Specialty Start Date End Date Saul Marcelino MD [address] [place] [phone] PCP - General Family Medicine 09/17/22 02/09/24 None, Physician [address] [place] [address] PCP - General 02/10/24 04/19/24 Saul Marcelino MD [address] [place] [address] PCP - General Family Medicine 04/20/24 documented as of this encounter
--- OUTSIDE RECORDS SUMMARY | 2024-07-14 19:37 | XMS_ITS | Clinical Summary ---
Author Organization [facility] [email or web address] Address [address] [facility] [place] [address] Care Team Providers Care Appeals Nurse Name Role Phone Saul Marcelino MD Primary Care Provider [phone] Source Comments [facility] Affiliates and Associated Physician Practices is amultiple site organization consisting of ambulatory clinics and hospital sitesin [place], [place], [place] and [place]. This disclosure is being madepursuant to the Care Everywhere program and may not contain all information available regarding this patient. 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 09/17/2022 Angina pectoris 06/25/2022 Overview (06/25/2022): Added automatically from request for surgery [id number] Nontoxic multinodular goiter 12/28/2020 Overview (02/13/2021): Last [...] - Cardiology [address] [facility], [address] [place] [address] Andrés Kaye MD MEDICATION REFILL 07/08/2024 Refill [facility] - Pulmonology [address] [place] [address] Maico Murphy MD Refill Request 07/01/2024 Travel 06/14/2024 1:30 PM CDT Office Visit [facility] - Pulmonology [address] [place] [address] Maico Murphy MD Screening for lung cancer (Primary Dx); Nicotine dependence, cigarettes, uncomplicated; BERTA (obstructive sleep apnea); Centrilobular emphysema; Tobacco abuse; Marijuana abuse; 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, unspecified vessel or lesion type 06/14/2024 Travel 06/10/2024 12:52 PM SOCCER BALL ASSEMBLER - 06/10/2024 11:59 PM SOCCER BALL ASSEMBLER Hospital Encounter [facility] [address] [place] [address] Alfonso Herrera MD Discharge Disposition: Home or Self Care 06/07/2024 10:13 AM SOCCER BALL ASSEMBLER - 06/07/2024 11:59 PM SOCCER BALL ASSEMBLER Hospital Encounter [facility] NUCLEAR MEDICINE [facility] [place] [address] Inocente Renee MD Discharge Disposition: Home or Self Care 06/07/2024 9:42 AM SOCCER BALL ASSEMBLER - 06/07/2024 10:12 AM SOCCER BALL ASSEMBLER Hospital Encounter [facility] NUCLEAR MEDICINE [address] [place] [address] Inocente Renee MD Discharge Disposition: Home or Self Care 06/07/2024 Travel 05/27/2024 11:45 AM SOCCER BALL ASSEMBLER - 05/27/2024 11:59 PM SOCCER BALL ASSEMBLER Hospital Encounter [facility] PFT [address] [place] [address] Viri Sam MD Discharge Disposition: Home or Self Care 05/27/2024 Travel 05/26/2024 Travel 05/23/2024 2:00 PM SOCCER BALL ASSEMBLER Office Visit [facility] - Sleep Services [address] [place] [address] Maura Simmons APNP-RV REPAIR TECHNICIAN BERTA (obstructive sleep apnea) (Primary Dx); Sleep related hypoxia; Chronic obstructive pulmonary disease, unspecified COPD type; Excessive daytime sleepiness; Chronic fatigue; Anemia, unspecified type; Hypocalcemia; Stage 3b chronic kidney disease; Hyperparathyroidism; Grade I diastolic dysfunction; Nocturia more than twice per night; Chronic insomnia; Air leak; CPAP use counseling; Obesity (BMI 30-39.9) 05/23/2024 Travel 05/12/2024 11:00 AM SOCCER BALL ASSEMBLER Office Visit [facility] [address] [place] [phone] Raffaele Beck MD Dysphagia, unspecified type (Primary Dx); Colon cancer screening; Screen for colon cancer 05/12/2024 Travel 05/10/2024 Telephone [facility] - Neurology [address] [place] [phone] Gary Virgen APRN-CNP Care Management 05/05/2024 Telephone [facility] - Sleep Services [address] [place] [address] Radha Sanders Order 05/04/2024 4:50 PM SOCCER BALL ASSEMBLER - 05/04/2024 11:59 PM SOCCER BALL ASSEMBLER Hospital Encounter [facility] LAB OP DRAW STATION [address] [place] [phone] Discharge Disposition: Home or Self Care 05/04/2024 3:30 PM SOCCER BALL ASSEMBLER Office Visit [facility] - Nephrology [address] [place] [phone] Adarsh Menendez MD Stage 3b chronic kidney disease (Primary Dx); Nephrolithiasis 05/04/2024 Travel 05/03/2024 Telephone [facility] [address] [place] [phone] Henrietta Crain RN Pancreatitis 05/03/2024 Travel 04/27/2024 1:00 PM SOCCER BALL ASSEMBLER Office Visit [facility] - Plastic Surgery [address] [place] [phone] Alfonso Herrera MD S/P breast reconstruction, bilateral (Primary Dx); Breast implant status; History of left breast cancer 04/27/2024 Travel 04/26/2024 Telephone [facility] [address] [place] [address] Maura Simmons APNP-RV REPAIR TECHNICIAN Order 04/22/2024 Telephone [facility] - Pulmonology [address] [place] [phone] Maico Murphy MD Allergy Symptoms 04/20/2024 Telephone [facility] Pulmonology [address] [place] [phone] Maico Murphy MD Medication Issue (Pt calling in regards to stopping flonase due to getting sores inside her nose ) from Last 3 Months Immunizations Name Administration Dates Next Due [employer] primary monoval ent 12+ yr 0.3mL Purple [...] 36.4 C (97.5 F) 05/12/2024 10:51 AM SOCCER BALL ASSEMBLER Respiratory Rate 17 06/14/2024 1:26 PM CDT [...] 08/25/2024 3:00 PM CDT Office Visit [facility] - Hematology/Oncology [address] [place] [phone] Aubree Thomas MD [address] [place] [address] 09/14/2024 2:00 PM CDT Office Visit [facility] - Neurology [address] [place] [address], [place] [phone] Gary Virgen APRN-RV REPAIR TECHNICIAN [address] [place] [address] [address]L [place] [phone] 10/17/2024 2:00 PM CDT Office Visit [facility] - Pulmonology [address] [place] [address], [place] [phone] Kunal Lennon MD [address] [place] [address] 2L DIV [place] [address] 11/02/2024 1:00 PM CDT Appointment [facility] LAB OP DRAW STATION [address] [place] [phone] 11/02/2024 2:00 PM CDT Office Visit [facility] - Nephrology [address] [place] [address], [place] [phone] Adarsh Menendez MD [address] [place] [address] 3L [place] [phone] 11/09/2024 12:30 PM CDT Office Visit [facility] - GI [address] [place] [phone] Raffaele Beck MD [address] [place] [address] 2L [place] [phone] 11/17/2024 3:00 PM CDT Office Visit [facility] - GI [address] [facility] [place] [phone] Raffaele Beck MD [address] [facility] 2L [place] [address] 11/21/2024 2:00 PM CDT Office Visit [facility] - Sleep Services [address] [place] [phone] Maura Simmons APNP-RV REPAIR TECHNICIAN [address] [place] [address] 2L DIV OF PULMONARY/[place] [address] 02/06/2025 2:00 PM SOCCER BALL ASSEMBLER Appointment [facility] CAT SCAN [address] [place] [phone] Beau Myrick MD [address] [place] [address] 2L DIV OF PULMONARY/[place] [address] Health Maintenance Due Date Last Done Comments [...] Management General On track( 025 4:47 PM SOCCER BALL ASSEMBLER) No Radha Bellamy, KIMO Note: Expected end date: Ongoing Interventions: Take all medications as prescribed Let your doctor know right away about any changes in your medications Make sure to request a refill of your medication at least one week prior to your last dose Safety General On track( 025 4:47 PM SOCCER BALL ASSEMBLER) No Rebecca De Jesus, RN Note: Expected [...] last dose Medical Devices Implanted Type Area Hand Embroiderer Device Identifier Shelf Expiration Date Model / Serial / Lot Sys Cor Stent Sng Xd Mr 2.25mm 20mm Dlv - [id number] Implanted:Qty: 1 on 08/17/2023 by Jeane Lu MD at [facility] Left: Coronary ASSURED INFORMATION SECURITY Nelida [id number] 07/14/2024 [id number] / [id number] Procedures Procedure Name Priority Date/Time Associated Diagnosis Comments US BREAST BILATERAL COMPLETE Routine 06/10/2024 2:13 PM SOCCER BALL ASSEMBLER Breast implant status S/P breast reconstruction, bilateral NM GASTRIC EMPTYING Routine 06/07/2024 1 :21 PM SOCCER BALL ASSEMBLER Dysphagia, unspecified type SIX MINUTE WALK Routine 05/27/2024 3:35 PM SOCCER BALL ASSEMBLER SOB (shortness of breath) on exertion COMPLETE PFT W/WO BRONCHODILATOR Routine 05/27/2024 3:21 PM SOCCER BALL ASSEMBLER SOB (shortness of breath) on exertion BLOOD GASES ART - PFT Routine 05/27/2024 11:46 AM SOCCER BALL ASSEMBLER BERTA (obstructive sleep apnea) Sleep related hypoxia Chronic obstructive pulmonary disease, unspecified COPD type MICROALB/CREAT RATIO URINE RANDOM PANEL Routine 05/04/2024 4:59 PM SOCCER BALL ASSEMBLER Stage 3b chronic kidney disease URINALYSIS REFLEX TO MICROSCOPIC NO CULTURE Routine 05/04/2024 4:59 PM SOCCER BALL ASSEMBLER Stage 3b chronic kidney disease VITAMIN D 25-HYDROXY Routine 05/04/2024 4:55 PM SOCCER BALL ASSEMBLER Stage 3b chronic kidney disease PTH INTACT W/O CALCIUM Routine 4:55 PM SOCCER BALL ASSEMBLER Stage 3b chronic kidney disease MAGNESIUM BLOOD Routine 05/04/2024 4:55 PM SOCCER BALL ASSEMBLER Stage 3b chronic kidney disease RENAL FUNCTION PANEL Routine 05/04/2024 4:55 PM SOCCER BALL ASSEMBLER Stage 3b chronic kidney disease CBC W AUTO DIFFERENTIAL Routine 05/04/2024 4:55 PM SOCCER BALL ASSEMBLER Stage 3b chronic kidney disease EXPOSURE PANEL SOURCE STAT 08/01/2016 1:01 PM CDT from Last 3 Months or Most Recently Relevant to Health Maintenance Results * US Breast Bilateral Complete (06/10/2024 2:13 PM SOCCER BALL ASSEMBLER) Anatomical Region Laterality Modality Breast Bilateral Mammography 06/10/2024 1:27 PM SOCCER BALL ASSEMBLER Impressions 06/10/2024 3:19 PM SOCCER BALL ASSEMBLER IMPRESSION: 1. Intra and extracapsular rupture of [...] 06/10/2024 3:19 PM Narrative 06/10/2024 3:19 PM SOCCER BALL ASSEMBLER EXAMINATION: COMPLETE BILATERAL (RIGHT AND LEFT) BREAST ULTRASOUND - COMBINED REPORT LOCATION: [facility] EXAM DATE: 06/10/2024 HISTORY: History of left-sided [...] * NM Gastric Emptying (06/07/2024 1:21 PM SOCCER BALL ASSEMBLER) Anatomical Region Laterality Modality Abdomen Nuclear Medicine 06/07/2024 10:4 5 AM SOCCER BALL ASSEMBLER Impressions 06/07/2024 3:38 PM SOCCER BALL ASSEMBLER Impression: Normal gastric emptying based on 5% retention at 3 hours after ingestion of meal. > Dictated by Norma Matos MD (Downstream Biomanufacturing Technician) 06/07/2024 10:45 AM Rosa Leiva DO have personally reviewed and interpreted this examination/study. > Interpreting Provider: Rosa Lancaster DO on 06/07/2024 3:38 PM Narrative 06/07/2024 3:38 PM SOCCER BALL ASSEMBLER PROCEDURE: NM GASTRIC EMPTYING DATE/TIME OF EXAM: [...] meal is labeled with 0.5 mCi of [id number] sulfur colloid. Findings: After ingestion of solid [...] meal is labeled with 0.5 mCi of [id number] sulfur colloid. Findings: After ingestion of solid [...] meal. > Dictated by Norma Matos MD (Downstream Biomanufacturing Technician) 06/07/2024 10:45AM I, Rosa Lancaster DO have personally reviewed and interpreted this examination/study. > Interpreting Provider: Rosa Lancaster DO on 06/07/2024 3:38 PM Inocente Renee MD NM ORDERABLES * SIX MINUTE WALK (05/27/2024 3:35 PM SOCCER BALL ASSEMBLER) Impressions Viri Sam MD - 05/27/2024 3:35 PM SOCCER BALL ASSEMBLER [facility] DEPARTMENT OF PULMONARY, CRITICAL CARE, AND SLEEP [...] decreased by 15 meters. [facility] 05/28/2024 1:34 AM I have personally reviewed the fellow's interpretation of the test and made any necessary changes when needed. Viri Sam MD Insurance Administrative Assistantknit tubing dyer Division of Pulmonary, Critical Care and Sleep Medicine [facility] Pager: [phone] Narrative Viri Sam MD - 05/27/2024 3:35 PM SOCCER BALL ASSEMBLER Mela Melton MD 05/28/2024 1:33 AM Procedure Note Mela Melton MD - 05/27/2024 3:35 PM CST Images from the original note were not included. Viri Sam MD RESPIRATORY THERAPY ORDERABLES * COMPLETE PFT W/WO BRONCHODILATOR (05/27/2024 3:21 PM SOCCER BALL ASSEMBLER) Impressions Viri Sam MD - 05/27/2024 3:21 PM SOCCER BALL ASSEMBLER [facility] DEPARTMENT OF PULMONARY, CRITICAL CARE, AND SLEEP [...] Melton MD Pulmonary & Critical Care Fellow, [facility] 1:36 AM 05/28/2024 I have personally reviewed the fellow's interpretation of the test and made any necessary changes when needed. Viri Sam MD Insurance Administrative Assistantknit tubing dyer Division of Pulmonary, Critical Care and Sleep Medicine [facility] Pager: [phone] Narrative Viri Sam MD - 05/27/2024 3:21 PM SOCCER BALL ASSEMBLER Mela Melton MD 05/28/2024 1:33 AM Procedure Note Mela Melton MD - 05/27/2024 3:21 PM CST Images from the original note were not included. Viri Sam MD RESPIRATORY THERAPY ORDERABLES * (ABNORMAL) BLOOD GASES ART - PFT (05/27/2024 11:46 AM SOCCER BALL ASSEMBLER) pH Arterial 7.31(L) 7.35 - 7.45 pH 05/27/2024 12:17 PM [facility] pO2 Arterial 90 80 - 100 mmHg 05/27/2024 12:17 PM [facility] pCO2 Arterial 44 35 - 45 mmHg 12:17 PM [facility] HCO3 Arterial 22.2 20.0 - 30.0 mmol/L 05/27/2024 12:17 PM [facility] BE Arterial -4.0(L) -2.0 - 2.0 mmol/L 05/27/2024 12:17 PM [facility] Oxyhemoglobin Arterial 93.4 % 05/27/2024 12:17 PM [facility] Dexoyhemoglobin (HHB) % 2.4 % 05/27/2024 12:17 PM [facility] Methemoglobin 0.8 0.0 - 2.0 % 05/27/2024 12:17 PM [facility] Carboxyhemoglobin 3.4(H) 0.0 - 2.0 % 2024 12:17 PM [facility] O2 Content Arterial 16.1 Interpret within clinical context ml/dL 05/27/2024 12:17 PM [facility] Hemoglobin by COOX 12.2 12.0 - 15.6 g/dL 05/27/2024 12:17 PM [facility] O2 Saturation Arterial 98 90 - 100 % 05/27/2024 12:17 PM [facility] FI O2 Arterial 21.0 % 05/27/2024 12:17 PM [facility] Blood, arterial ARTERIAL BLOOD SPECIMEN / Unknown Arterial Puncture / Unknown 05/27/2024 11:46 AM SOCCER BALL ASSEMBLER 05/27/2024 11:47 AM SOCCER BALL ASSEMBLER Maura HERNADEZ LAB - BL OOD GASES ORDERABLES Performing Organization Address [facility]/ZIP Co de Phone Number [facility] [address] [place] [address], [place] [phone] * (ABNORMAL) MICROALB/CREAT RATIO URINE RANDOM PANEL (05/04/2024 4:59 PM SOCCER BALL ASSEMBLER) Albumin Random Urine 525.7 Not Established ug/mL 05/04/2024 6:04 PM [facility] Comment:Result obtained by jose e quan. Creatinine Urine 120.26 Not Established mg/dL 05/04/2024 6:04 PM [facility] Urine Albumin/Creati nine Ratio 437(H) <30 mg/g 05/04/2024 6:04 PM [facility] Urine URINE SPECIMEN OBTAINED BY CLEAN CATCH PROCEDURE / Unknown Collection / Unknown 05/04/2024 4:59 PM SOCCER BALL ASSEMBLER 05/04/2024 5:19 PM SOCCER BALL ASSEMBLER Adarsh Menendez MD LAB - URINE CHEMISTR Y ORDERABLES Performing Organization Address City/[facility]/ZIP Co de Phone Number [facility] [address] [place] [address], [facility] [phone] * (ABNORMAL) URINALYSIS REFLEX TO MICROSCOPIC NO CULTURE (05/04/2024 4:59 PM SOCCER BALL ASSEMBLER) Color UA Yellow Straw, Yellow 05/04/2024 5:41 PM [facility] Clarity UA Clear Clear 05/04/2024 5:41 PM [facility] Specific [place] UA 1.014 1.005 - 1.030 05/04/2024 5:41 PM [facility] pH UA 5.0 5.0 - 8.0 pH 05/04/2024 5:41 PM [facility] Protein UA 2+(A) Negative 05/04/2024 5:41 PM [facility] Glucose UA Negative Negative 05/04/2024 5:41 PM [facility] Ketone UA Negative Negative 05/04/2024 5:41 PM [facility] Bilirubin UA Negative Negative 05/04/2024 5:41 PM [facility] Blood UA Negative Negative 05/04/2024 5:41 PM [facility] Nitrite UA Negative Negative 05/04/2024 5:41 PM [facility] Leukocyte Esterase Negative Negative 05/04/2024 5:41 PM [facility] Urobilinogen UA Negative Negative mg/dL 05/04/2024 5:41 PM [facility] RBC UA 3-5 None Seen, 0-2, 3-5 /HPF 05/04/2024 5:41 PM [facility] WBC UA 0-5 None Seen, 0-5 /HPF 05/04/2024 5:41 PM [facility] Squamous Epithelial Cells UA 0-2 None Seen, 0-2, 3-5 /HPF 05/04/2024 5:41 PM [facility] Mucus UA 1+ /LPF 05/04/2024 5:41 PM [facility] Hyaline Casts UA 0-2 None Seen, 0-2 /LPF 05/04/2024 5:41 PM [facility] Urine URINE SPECIMEN OBTAINED BY CLEAN CATCH PROCEDURE / Unknown Collection / Unknown 05/04/2024 4:59 PM SOCCER BALL ASSEMBLER 05/04/2024 5:27 PM SOCCER BALL ASSEMBLER [facility] - 05/04/2024 5:41 PM SOCCER BALL ASSEMBLER Adarsh Menendez MD LAB - URINALYSIS ORD ERABLES [facility] [address] [place] [address], [facility] [phone] * (ABNORMAL) PTH INTACT W/O CALCIUM (05/04/2024 4:55 PM SOCCER BALL ASSEMBLER) PTH Intact 134.2(H) 8.0 - 77.0 pg/mL 05/04/2024 5:52 PM [facility] Blood BLOOD SPECIMEN / Unknown Lab Venipuncture / Unknown 05/04/2024 4:55 PM SOCCER BALL ASSEMBLER 05/04/2024 5:19 PM SOCCER BALL ASSEMBLER Adarsh Menendez MD LAB - CHEMISTRY DESIREE VEE [facility] [address] [place] [address], [facility] [phone] * VITAMIN D 25-HYDROXY (05/04/2024 4:55 PM SOCCER BALL ASSEMBLER) Vitamin D, 25 Hydroxy 41.3 30.0 - 80.0 ng/mL 05/04/2024 6:04 PM SOCCER BALL ASSEMBLER [facility] Comment: The recommendations for 25-Hydroxy Vitamin D [...] Lab Venipuncture / Unknown 05/04/2024 4:55 PM SOCCER BALL ASSEMBLER 05/04/2024 5:18 PM SOCCER BALL ASSEMBLER Adarsh Menendez MD LAB - CHEMISTRY DESIREE VEE Performing Organization Address City/[facility]/ZIP Co de Phone Number [facility] [address] [place] [address], [facility] [phone] * (ABNORMAL) CBC WITH DIFFERENTIAL (05/04/2024 4:55 PM SOCCER BALL ASSEMBLER) WBC 12.4(H) 4.0 - 10.7 x10E9/L 05/04/2024 5:41 PM SOCCER BALL ASSEMBLER [facility] RBC Count 4.00 3.90 - 5.20 x10E12/L 05/04/2024 5:41 PM SOCCER BALL ASSEMBLER [facility] Hemoglobin 11.5(L) 11.9 - 15.8 g/dL 05/04/2024 5:41 PM SOCCER BALL ASSEMBLER [facility] Hematocrit 36.2 34.8 - 46.1 % 05/04/2024 5:41 PM [facility] MCV 90.5 80.0 - 98.0 fL 05/04/2024 5:41 PM [facility] MCH 28.8 26.7 - 33.6 pg 05/04/2024 5:41 PM [facility] MCHC 31.8 31.7 - 36.3 g/dL 05/04/2024 5:41 PM [facility] RDW-CV 15.7(H) 11.3 - 14.8 % 05/04/2024 5:41 PM [facility] Platelet Count 198 150 - 420 x10E9/L 05/04/2024 5:41 PM [facility] MPV 12.1(H) 7.8 - 11.4 fL 05/04/2024 5:41 PM [facility] Neutrophil % 69.6 41.0 - 74.0 % 05/04/2024 5:41 PM [facility] Lymphocyte % 19.2 17.0 - 47.0 % 05/04/2024 5:41 PM [facility] Monocyte % 6.9 3.0 - 11.0 % 05/04/2024 5:41 PM [facility] Eosinophil % 3.6 0.0 - 7.0 % 05/04/2024 5:41 PM [facility] Basophil % 0.4 0.0 - 1.6 % 05/04/2024 5:41 PM [facility] Immature Granulocytes % 0.3 0.0 - 1.0 % 05/04/2024 5:41 PM [facility] Neutrophil Absolute 8.61(H) 1.60 - 7.50 x10E9/L 05/04/2024 5:41 PM [facility] Lymphocyte Absolute 2.38 1.00 - 4.40 x10E9/L 05/04/2024 5:41 PM [facility] Monocyte Absolute 0.85 0.15 - 1.00 x10E9/L 05/04/2024 5:41 PM [facility] Eosinophil Absolute 0.44 0.00 - 0.60 x10E9/L 05/04/2024 5:41 PM [facility] Basophil Absolute 0.05 0.00 - 0.13 x10E9/L 05/04/2024 5:41 PM [facility] Blood BLOOD SPECIMEN / Unknown Lab Venipuncture / Unknown 05/04/2024 4:55 PM SOCCER BALL ASSEMBLER 05/04/2024 5:19 PM SOCCER BALL ASSEMBLER Adarsh Menendez MD LAB - HEMATOLOGY ORD ERABLES [facility] [address] [place] [address], [facility] [phone] * (ABNORMAL) RENAL FUNCTION PANEL (05/04/2024 4:55 PM SOCCER BALL ASSEMBLER) BUN 34(H) 7 - 26 mg/dL 05/04/2024 5:46 PM [facility] Creatinine 1.75(H) 0.56 - 0.96 mg/dL 05/04/2024 5:46 PM [facility] Sodium 141 136 - 145 mmol/L 05/04/2024 5:46 PM [facility] Potassium 3.9 3.5 - 4.5 mmol/L 05/04/2024 5:46 PM [facility] Chloride 107 98 - 107 mmol/L 05/04/2024 5:46 PM [facility] CO2 26 22 - 29 mmol/L 05/04/2024 5:46 PM [facility] Glucose 100(H) 70 - 99 mg/dL 05/04/2024 5:46 PM [facility] Albumin 2.9(L) 3.4 - 5.0 g/dL 05/04/2024 5:46 PM [facility] Calcium 8.2(L) 8.4 - 10.2 mg/dL 05/04/2024 5:46 PM [facility] Phosphorus 3.9 2.9 - 5.1 mg/dL 05/04/2024 5:46 PM [facility] Anion Gap 8 6 - 16 05/04/2024 5:46 PM [facility] BUN/Creatinine Ratio 19 7 - 23 05/04/2024 5:46 PM [facility] Osmolality Calculated 300(H) 275 - 295 mOsm/kg 05/04/2024 5:46 PM SOCCER BALL ASSEMBLER [facility] eGFR by CKD-EPI 32(L) >=90 mL/min/1.7 3 m2 05/04/2024 5:46 PM SOCCER BALL ASSEMBLER [facility] Blood BLOOD SPECIMEN / Unknown Lab Venipuncture / Unknown 05/04/2024 4:55 PM SOCCER BALL ASSEMBLER 05/04/2024 5:18 PM SOCCER BALL ASSEMBLER Adarsh Menendez MD LAB - CHEMISTRY DESIREE VEE Performing Organization Address City/[facility]/ZIP Co de Phone Number [facility] [address] [place] [address], [place] [phone] * MAGNESIUM BLOOD (05/04/2024 4:55 PM SOCCER BALL ASSEMBLER) Pathologist [facility] Magnesium 1.9 1.6 - 2.6 mg/dL 05/04/2024 5:46 PM SOCCER BALL ASSEMBLER [facility] Blood BLOOD SPECIMEN / Unknown Lab Venipuncture / Unknown 05/04/2024 4:55 PM SOCCER BALL ASSEMBLER 05/04/2024 5:18 PM SOCCER BALL ASSEMBLER Adarsh Menendez MD LAB - CHEMISTRY DESIREE VEE Performing Organization Address [facility]/ZIP Co de Phone Number [address] [address], [place] [phone] * EXPOSURE PANEL SOURCE (08/01/2016 1:01 PM CDT) HIV Antigen/Antibody 1 & 2 Non-react [facility] Comment: Neither HIV-1 p24 Antigen nor HIV-1/HIV-2 Antibodies are detected. Hepatitis C Antibody Non-react [facility] Comment: Hepatitis C Antibody screen indicates no serologic evidence of past or current infection with Hepatitis C Virus. Patients with unexplained liver disease who are immunocompromised or suspected of having acute Hepatitis C infection may benefit from Nucleic Acid Test (LUMA) for Hepatitis C Viral RNA to confirm Hepatitis C status. Hepatitis B Virus Surface Antigen Non-react [facility] Hepatitis B Core Virus Antibody IgM Non-react reji Non-reac tive [facility] Blood specimen (specimen) BLOOD SPECIMEN / Unknown 08/01/2016 1:01 PM CDT 08/01/2016 1:01 PM CDT River Daugherty MD LAB - CHEMISTR Y ORDERABLES [facility] [address] [phone] from Last 3 Months or Most Recently Relevant to Health Maintenance Advance Directives * Full Code (Latest Code Status on File) Date Activated Date Inactivated Comments 08/17/2023 9:20 AM 08/17/2023 2:23 PM * Full Code Date Activated Date Inactivated Comments 08/17/2023 9:06 AM 08/17/2023 9:20 AM * Full Code Date Activated Date Inactivated Comments 07/01/2022 12:41 PM 07/01/2022 3:54 PM Care Teams Appeals Nurse Relationship Specialty Start Date End Date Saul Marcelino MD [address] [place] [phone] PCP - General Family Medicine 04/20/24
--- OUTSIDE RECORDS SUMMARY | 2024-07-14 19:37 | XMS_ITS | Encounter Summary ---
Author Organization [facility] Address [facility] [place] [address] Care Team Providers Care Community Health Nurse Staff Name Role Phone Saul Marcelino MD Primary Care Provider [phone] Reason for Visit * Reason Onset Date Comments MEDICATION REFILL 07/14/2024 Encounter Details Date Type Department Care Team (Late st Contact Info) Description 07/14/2024 Refill [facility] - Cardiology 10[address] [facility], [address] [phone] Andrés Kaye MD [address] [place] [address] MEDICATION REFILL Social History Tobacco Use Types [...] Description 08/25/2024 3:00 PM CDT Office Visit [facility] - Hematology/Oncology [address] [place] [phone] Aubree Thomas MD [address] [place] [phone] 09/14/2024 2:00 PM CDT [facility]rology [address] [place] [address], [place] [phone] Gary Virgen APRN-POP [address] [place] [address] 1L [place] [address] 10/17/2024 2:00 PM CDT Office Visit [facility] - Pulmonology [address] [place] [address], [place] [phone] Kunal Lennon MD [address] [place] [address] 2L [place] [address] 11/02/2024 1:00 PM CDT Appointment [facility] LAB OP DRAW STATION [address] [place] [address] 11/02/2024 2:00 PM CDT Office Visit [facility] - Nephrology [address] [place] [phone] Adarsh Menendez MD [address] [place] [address] 3L [place] [phone] 11/09/2024 12:30 PM CDT Office Visit [facility] - GI [address] [place] [phone] Raffaele Beck MD [address] [place] [address] 2L [place] [address] 11/17/2024 3:00 PM CDT Office Visit [facility] - GI [address] [place] [phone] Raffaele Beck MD [address] [place] [address] 2L [place] [address] 11/21/2024 2:00 PM CDT Office Visit [facility] - Sleep Services 35[address] [place] [phone] Maura Simmons, APNP-PALLET REPAIRER [address] [place] [address] 2L DIV OF PULMONARY/[place] [address] 02/06/2025 2:00 PM MEDICAL GRADE SHOEMAKER Appointment [facility] CAT SCAN [address] [place] [phone] Beau Myrick MD [address] [place] [address] 2L DIV OF PULMONARY/[place] [address] documented as of this encounter Goals Goal Patient Goal Type Associated Problems Recent Progress Patient-Stated? Author Medication Management General On track( 025 4:47 PM MEDICAL GRADE SHOEMAKER) No Radha Bellamy, RN Note: Expected end date: Ongoing Interventions: Take all medications as prescribed Let your doctor know right away about any changes in your medications Make sure to request a refill of your medication at least one week prior to your last dose Safety General On track( 025 4:47 PM MEDICAL GRADE SHOEMAKER) No Rebecca De Jesus, RN Note: Expected [...] on filedocumented in this encounter Care Teams Community Health Nurse Staff Relationship Specialty Start Date End Date Saul Marcelino MD [address] [place] [phone] PCP - General Family Medicine 04/20/24 documented as of this encounter
--- OUTSIDE RECORDS SUMMARY | 2024-07-14 19:37 | XMS_ITS | Encounter Summary ---
Author Organization [facility] Address [address] [facility] [place] [address] Care Team Providers Care Design Editor Name Role Phone Saul Marcelino MD Primary Care Provider [phone] None, Physician Primary Care Provider Unavailabl e Saul Marcelino MD Primary Care Provider [phone] Encounter Details Date Type Department Care Team (Late st Contact Info) Description 07/22/2023 Telephone [facility] - Neurology [address] [facility], [facility] [place] [address] Taylor Perry MD Social History [...] to find out theresults. Callback number is [phone] documented in this encounter Plan of Treatment Upcoming Encounters Date Type Department Care Team (Late st Contact Info) Description 08/25/2024 3:00 PM CDT Office Visit [facility] - Hematology/Oncology [address] [place] [phone] Aubree Thomas MD [address] [place] [address] 09/14/2024 2:00 PM CDT Office Visit [facility] - Neurology [address] [place] [address], [place] [phone] Gary Virgen, PROGRAM PROFESSIONAL-CLAIMS ADJUSTER SUPERVISOR [address] [place] [address] [place] [address] 10/17/2024 2:00 PM CDT Office Visit [facility] - Pulmonology [address] [place] [address], [place] [phone] Kunal Lennon MD [address] [place] [address] 2L DIV OF [place] [address] 11/02/2024 1:00 PM CDT Appointment [facility] OP DRAW STATION [address] [place] [phone] 11/02/2024 2:00 PM CDT Office Visit [facility] - Nephrology [address] [place] [phone] Adarsh Menendez MD [address] [place] [address] 3L [place] [address] 11/09/2024 12:30 PM CDT Office Visit [facility] - GI [address] [place] [phone] Raffaele Beck MD [address] [place] [address] 2L DIV [place] [phone] 11/17/2024 3:00 PM CDT Office Visit [facility] - GI [address] [place] [phone] Raffaele Beck MD [address] [place] [address] 2L DIV [place] [phone] 11/21/2024 2:00 PM CDT Office Visit [facility] - Sleep Services [address] [place] [phone] Maura Simmons, APNP-CLAIMS ADJUSTER SUPERVISOR [address] [place] [address] 2L DIV OF PULMONARY/[place] [address] 02/06/2025 2:00 PM DRAGGER Appointment [facility] CAT SCAN [address] [place] [phone] Beau Myrick MD [address] OF PULMONARY/[place] [address] documented as of this encounter Goals Goal Patient Goal Type Associated Problems Recent Progress Patient-Stated? Author Medication Management General On track( 025 4:47 PM DRAGGER) Radha De La Fuente RN Note: Expected end date: Ongoing Interventions: Take all medications as prescribed Let your doctor know right away about any changes in your medications Make sure to request a refill of your medication at least one week prior to your last dose documented as of this encounter Visit Diagnoses Not on filedocumented in this encounter Care Teams Design Editor Relationship Specialty Start Date End Date Saul Marcelino MD [address] [place] [address] PCP - General Family Medicine 09/17/22 02/09/24 None, Physician [facility]2 [place] [address] PCP - General 02/10/24 04/19/24 Saul Marcelino MD [address] [place] [address] PCP - General Family Medicine 04/20/24 documented as of this encounter
--- OUTSIDE RECORDS SUMMARY | 2024-07-14 19:37 | XMS_ITS | Encounter Summary ---
Author Organization [facility] Address [address] [facility] [place] [address] Care Team Providers Care Surgical Scrub Technician Name Role Phone Saul Marcelino MD Primary Care Provider [phone] Reason for Visit * Reason Onset Date Comments Order 04/26/2024 Encounter Details Date Type Department Care Team (Late st Contact Info) Description 04/26/2024 Telephone [facility] - Sleep Services [address] [place] [address] Maura Simmons, APNP-RECREATION ATTENDANT SUPERVISOR [address] OF PULMONARY/[place] [address] Order Social History Tobacco Use Types Packs/Day [...] for her CPAP Patient Call Back number: [phone] R SPRING ASSEMBLER documented in this encounter Plan of Treatment Upcoming Encounters Date Type Department Care Team (Late st Contact Info) Description 08/25/2024 3:00 PM CDT Office Visit [facility] - Hematology/Oncology [address] [place] [phone] Aubree Thomas MD [address] [place] [address] 09/14/2024 2:00 PM CDT Office Visit [facility] - Neurology [address] [place] [address], Counts Include [address] [facility] [phone] Gary Virgen APRN-CNP [address] [place] [address] [place] [address] 10/17/2024 2:00 PM CDT Office Visit [facility] - Pulmonology [address] [place] [address], [place] [phone] Kunal Lennon MD [address] [place] [address] 2L DIV [place] [address] 11/02/2024 1:00 PM CDT Appointment [facility] LAB OP DRAW STATION [address] [place] [address] 11/02/2024 2:00 PM CDT Office Visit [facility] - Nephrology [address] [place] [address], [place] [phone] Adarsh Menendez MD [address] [place] [address] 3L [place] [address] 11/09/2024 12:30 PM CDT Office Visit [facility] - GI [address] [place] [phone] Raffaele Beck MD [address] [place] [address] 2L [place] [address] 11/17/2024 3:00 PM CDT Office Visit [facility] - GI [address] [place] [phone] Raffaele Beck MD [address] [place] [address] 2L [place] [address] 11/21/2024 2:00 PM CDT Office Visit [facility] - Sleep Services [facility]5 [place] [address] Maura Simmosn, APNP-RECREATION ATTENDANT SUPERVISOR [address] [place] [address] 2L DIV OF PULMONARY/[place] [address] 02/06/2025 2:00 PM CHAIR SPRING ASSEMBLER Appointment [facility] CAT SCAN [address] [place] [phone] Beau Myrick MD [address] [facility] 2L DIV OF PULMONARY/[place] [address] documented as of this encounter Goals Goal Patient Goal Type Associated Problems Recent Progress Patient-Stated? Author Medication Management General On track( 025 4:47 PM CHAIR SPRING ASSEMBLER) Radha De La Fuente RN Note: Expected end date: Ongoing Interventions: Take all medications as prescribed Let your doctor know right away about any changes in your medications Make sure to request a refill of your medication at least one week prior to your last dose documented as of this encounter Visit Diagnoses Not on filedocumented in this encounter Care Teams Surgical Scrub Technician Relationship Specialty Start Date End Date Saul Marcelino MD [address] [place] [phone] PCP - General Family Medicine 04/20/24 documented as of this encounter
--- OUTSIDE RECORDS SUMMARY | 2024-07-14 19:37 | XMS_ITS | Clinical Summary ---
Author Organization [facility] Address [address] [place] [address] Care Team Providers Care Auto Dealership Porter Name Role Phone Dontae Min DO Primary Care Provider [phone] Allergies Active Allergy Reactions Criticality Noted Date [...] artery disease of n ative artery of [place] heart with stable angina pectoris 09/17/2022 Nontoxic [...] 03/15/2020 Assessment & Plan (04/26/2020 3:09 PM TECHNICIAN ASSISTANT): Controlled with medication including Lasix CKD - continue medication per PCP Assessment & Plan (03/15/2020 3:58 PM TECHNICIAN ASSISTANT): Controlled with medication including Lasix CKD - continue medication per PCP Mixed hyperlipidemia 03/15/2020 Hypercalcemia 03/15/2020 Assessment & Plan (04/26/2020 3:09 PM TECHNICIAN ASSISTANT): Detected on labs on 03/09/20 Calcium of [...] functions Assessment & Plan (03/15/2020 3:57 PM TECHNICIAN ASSISTANT): Detected on recent labs on 03/09/20 Calcium [...] on file Legal Sex Female 12:19 AM TECHNICIAN ASSISTANT Gender Identity Not on file Sexual Orientation [...] PM CDT MR Gus Mamm R Acc#: [id number] DATE OF EXAM: Oct 05 2012 Performed [...] - 08/07/2016 MR Diag Mamm R Acc#: [id number] DATE OF EXAM: Oct 05 2012 Performed [...] Most Recently Relevant to Health Maintenance Insurance [facility] [id number] [place] [address] [facility] MEDICARE MEDICARE [facility] Advance Directives For more information, please contact: [phone] * Full Code (Latest Code Status on File) Date Activated Date Inactivated Comments 11/28/2020 7:15 PM 11/29/2020 7:45 PM Care Teams Auto Dealership Porter Relationship Specialty Start Date End Date Dontae Min DO PCP - General Internal Medicine 09/28/20
--- OUTSIDE RECORDS SUMMARY | 2024-07-14 19:37 | XMS_ITS ---
Author Organization [facility] Address [address] [place] [address] Care Team Providers Care Vendor Analyst Name Role Phone Dontae Min DO Primary Care Provider [phone] Active Problems Problem Noted Date Diagnosed Date Renal disorder 12/08/2023 Overview (12/08/2023): Kidney failure Generalized anxiety disorder with panic attacks 05/14/2023 Leg cramps 05/14/2023 BERTA (obstructive sleep apnea) 05/14/2023 PND (paroxysmal nocturnal dyspnea) 05/14/2023 Restless legs syndrome (RLS) 05/14/2023 Stage 3b chronic kidney disease 05/14/2023 Cystic disease of liver 09/18/2022 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 Nontoxic [...] 03/15/2020 Assessment & Plan (04/26/2020 3:09 PM MEDICARE COMPLIANCE AUDITOR): Controlled with medication including Lasix CKD - continue medication per PCP Assessment & Plan (03/15/2020 3:58 PM MEDICARE COMPLIANCE AUDITOR): Controlled with medication including Lasix CKD - continue medication per PCP Mixed hyperlipidemia 03/15/2020 Hypercalcemia 03/15/2020 Assessment & Plan (04/26/2020 3:09 PM MEDICARE COMPLIANCE AUDITOR): Detected on labs on 03/09/20 Calcium of [...] functions Assessment & Plan (03/15/2020 3:57 PM MEDICARE COMPLIANCE AUDITOR): Detected on recent labs on 03/09/20 Calcium [...]
--- OUTSIDE RECORDS SUMMARY | 2024-07-14 19:37 | XMS_ITS | Encounter Summary ---
Author Organization [facility] Address [facility] [facility] [place] [address] Care Team Providers Care Crystallographer Name Role Phone Saul Marcelino MD Primary Care Provider [phone] Reason for Visit * Reason Comments Pancreatitis Encounter Details Date Type Department Care Team (Late st Contact Info) Description 05/03/2024 Telephone [facility] - [address] [facility], [place] [phone] Henrietta Crain RN Pancreatitis Social History Tobacco [...] Looking for sooner appt with GI team. RedBee message sent to GI team. NT SOURCER * Telephone Encounter - Henrietta Crain RN - 05/03/2024 4:22 PM CST Call received from pt to report nausea before and after eating. Reports hard spots in abdomen. BM -black - taking ferrous sulfate. Additionally reports passage of mucous. Taking odansetron, without help. Using miralax daily. Needs sooner appt than August. Call back number [phone]. GI team notified. NT SOURCER documented in this encounter Plan of Treatment Upcoming Encounters Date Type Department Care Team (Late st Contact Info) Description 08/25/2024 3:00 PM CDT Office Visit [facility] - Hematology/Oncology [address] [place] [address] Aubree Thomas MD [address] [place] [address] 09/14/2024 2:00 PM CDT [facility] [address] [place] [phone] Gary Virgen, LARYNGOLOGIST-PRODUCT DEVELOPMENT ECOLOGIST [address] [place] [address] 1L [place] [address] 10/17/2024 2:00 PM CDT Office Visit [facility] - Pulmonology [address] [place] [address], [place] [phone] Kunal Lennon MD [address] [place] [address] 2L DIV [place] [address] 11/02/2024 1:00 PM CDT Appointment [facility] OP DRAW STATION [address] [place] [address] 11/02/2024 2:00 PM CDT Office Visit [facility] - Nephrology [address] [place] [phone] Adarsh Menendez MD [address] [place] [address] 3L [place] [address] 11/09/2024 12:30 PM CDT Office Visit [facility] - GI [address] [place] [phone] Raffaele Beck MD [address] [place] [address] 2L [place] [address] 11/17/2024 3:00 PM CDT Office Visit [facility] - GI [address] [place] [phone] Raffaele Beck MD [address] [place] [address] 2L [place] [address] 11/21/2024 2:00 PM CDT [facility] Services [address] [place] [address], [place] [phone] Maura Simmons, EVIN-PRODUCT DEVELOPMENT ECOLOGIST [address] [facility] 2L DIV OF PULMONARY/[place] [address] 02/06/2025 2:00 PM TALENT SOURCER Appointment [facility] CAT SCAN [address] [place] [phone] Beau Myrick MD [address] [facility] 2L DIV OF PULMONARY/[place] [address] documented as of this encounter Goals Goal Patient Goal Type Associated Problems Recent Progress Patient-Stated? Author Medication Management General On track( 025 4:47 PM TALENT SOURCER) No Radha Bellamy, RN Note: Expected end date: Ongoing Interventions: Take all medications as prescribed Let your doctor know right away about any changes in your medications Make sure to request a refill of your medication at least one week prior to your last dose Safety General On track( 025 4:47 PM TALENT SOURCER) No Rebecca De Jesus, RN Note: Expected [...] on filedocumented in this encounter Care Teams Crystallographer Relationship Specialty Start Date End Date Saul Marcelino MD [address] [place] [phone] PCP - General Family Medicine 04/20/24 documented as of this encounter
--- OUTSIDE RECORDS SUMMARY | 2024-07-14 19:37 | XMS_ITS | Encounter Summary ---
Author Organization [facility] Address [address] [facility] [place] [address] Care Team Providers Care Target Aircraft Controller Name Role Phone Dontae Min DO Primary Care Provider [phone] Timmy Baldwin MD Primary Care Provider [phone] Dontae Min DO Primary Care Provider [phone] Dontae Min DO Primary Care Provider [phone] Saul Marcelino MD Primary Care Provider [phone] None, Physician Primary Care Provider Unavailmulticare health e Saul Marcelino MD Primary Care Provider [phone] Encounter Details Date Type Department Care Team (Late st Contact Info) Description 04/17/2022 Ambulatory Consult [facility] 3L [address] [facility], [place] [address] Shelley Ortega, RN Social History Tobacco Use [...] Coronavirus/COVID-19? No / Unsure 04/10/2022 3:01 PM SUPERVISOR STEEL DIVISION documented as of this encounter Plan of Treatment Upcoming Encounters Date Type Department Care Team (Late st Contact Info) Description 08/25/2024 3:00 PM CDT Office Visit [facility] - Hematology/Oncology [address] [place] [phone] Aubree Thomas MD [address] [place] [phone] 09/14/2024 2:00 PM CDT Office Visit [facility] - Neurology [address] [place] [address], [place] [phone] Gary Virgen APRN-POP [address] [place] [address] 1L [place] [address] 10/17/2024 2:00 PM CDT Office Visit [facility] - Pulmonology [address] [place] [address], [place] [phone] Kunal Lennon MD [address] [place] [address] 2L DIV [place] [address] 11/02/2024 1:00 PM CDT Appointment [facility] LAB OP DRAW STATION [address] [place] [phone] 11/02/2024 2:00 PM CDT Office Visit [facility] - Nephrology [address] [place] [address], [place] [phone] Adarsh Menendez MD [address] [place] [address] 3L [place] [address] 11/09/2024 12:30 PM CDT Office Visit [facility] - GI [address] [place] [address], [place] [phone] Raffaele Beck MD [address] [facility] 2L [place] [address] 11/17/2024 3:00 PM CDT Office Visit [facility] - GI [address] [facility], [place] [phone] Raffaele Beck MD [address] [place] [address] 2L [place] [address] 11/21/2024 2:00 PM CDT Office Visit [facility] - Sleep Services [address] [place] [phone] Maura Simmons, APNP-UNION CARPENTER [address] [facility] 2L DIV OF PULMONARY/[place] [address] 02/06/2025 2:00 PM SUPERVISOR STEEL DIVISION Appointment [facility] CAT SCAN [address] [place] [phone] Beau Myrick MD [address] [place] [address] 2L DIV OF PULMONARY/[place] [address] documented as of this encounter Goals Goal Patient Goal Type Associated Problems Recent Progress Patient-Stated? Author Medication Management General On track( 025 4:47 PM SUPERVISOR STEEL DIVISION) Radha De La Fuente, RN Note: Expected end date: Ongoing Interventions: Take all medications as prescribed Let your doctor know right away about any changes in your medications Make sure to request a refill of your medication at least one week prior to your last dose documented as of this encounter Visit Diagnoses Not on filedocumented in this encounter Care Teams Target Aircraft Controller Relationship Specialty Start Date End Date Dontae Min DO [address] [place] [address] PCP - General 06/15/19 05/11/22 [place] [address] [address] PCP - General 05/12/22 06/03/22 Dontae Min DO [address] [place] [address] PCP - General 06/04/22 06/09/22 Dontae Min DO [address] [place] [address] PCP - General 06/10/22 09/16/22 Saul Marcelino MD [address] [place] [phone] PCP - General Family Medicine 09/17/22 02/09/24 None, Physician [address] [place] [address] PCP - General 02/10/24 04/19/24 Saul Marcelino MD [address] [place] [phone] PCP - General Family Medicine 04/20/24 documented as of this encounter
== END 2024-07-15 03:07 | disposition left against medical advice (07) ==
PROVIDERS: PCP Family Medicine
DX: M54.9 Dorsalgia, unspecified (principal)
CPT/HCPCS: 99199

== ENCOUNTER 2024-07-26 14:03 | Outpatient (CLI) | payer MEDICARE, MEDICAID, SELFPAY ==
[2024-07-26 14:37] LABS: Hematocrit 39.2 % (37.0-47.0); Hemoglobin 11.9 g/dL (12.0-15.0); Mean Corpuscular HGB Conc 30.4 g/dl (32-36); Mean Corpuscular Hemoglobin 29.5 pg (26-34); Mean Corpuscular Volume 97.3 fl (80-100); Mean Platelet Volume 12.3 fl (7.4-10.4); Platelet Count Result 203 k/mm3 (150-375); Red Blood Count 4.03 M/mm3 (4.2-5.4); Red Cell Distribution Width 14.9 % (11.5-14.5); White Blood Count 11.1 K/mm3 (4.5-10.0)
[2024-07-26 14:45] LABS: Alanine Aminotransferase 15 U/L (6-35); Albumin Level 3.7 g/dL (3.5-5.1); Alkaline Phosphatase 112 U/L (38-126); Anion Gap 7 mmol/L (4-12); Aspartate Amino Transferase 23 U/L (14-36); Bilirubin,Total 0.4 mg/dL (0.2-1.3); Blood Urea Nitrogen 33 mg/dL (7-17); Calcium 8.3 mg/dL (8.4-10.2); Carbon Dioxide 26 mmol/L (22-30); Chloride 108 mmol/L (98-107); Estimated Glomerular Filt Rate 27; Glucose 102 mg/dL (65-110); Potassium 4.1 mmol/L (3.4-5.0); Sodium 141 mmol/L (137-145)
--- OUTSIDE RECORDS SUMMARY | 2024-07-26 16:12 | XMS_ITS | Encounter Summary ---
Author Organization [facility] Address [address] [facility] [place] [address] Care Team Providers Care Investigative Assistant Name Role Phone Saul Marcelino MD Primary Care Provider [phone] None, Physician Primary Care Provider Unavailabl e Saul Marcelino MD Primary Care Provider [phone] Encounter Details Date Type Department Care Team (Late st Contact Info) Description 11/06/2022 Telephone [facility] - Neurology [address] [facility] [place] [address] Taylor Perry MD Social History [...] of Binge Drinking Not on file 05/2022 Comments No Sex and Gender Information Value Date Recorded Sex Assigned at Not on file Legal Sex 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 SUPERVISOR NETWORK CONTROL OPERATORS Gender Identity Not on file Sexual Orientation Not on file COVID-19 Exposure Response Date Recorded In the last 10 days, have yo u been in contact with someone who was confirmed or suspected to have Coronavirus/COVID-19? No / Unsure 10/14/2022 1:07 PM CDT documented as of this encounter Functional Status * Is person deaf or have serious hearing difficulty? Answer Date of Assessment Author Yes 08/07/2022 10:21 AM CDT Pina Love RN * Is person blind or have serious difficulty seeing? Answer Date of Assessment Author No 08/07/2022 10:21 AM CDT Pina Love RN * Does person have serious difficulty walking/climbing stairs? Answer Date of Assessment Author No 08/07/2022 10:21 AM CDT Pina Love RN * Does person have difficulty dressing/bathing? Answer Date of Assessment Author No 08/07/2022 10:21 AM CDT Pina Love RN * Does person have difficulty doing errands alone? Answer Date of Assessment Author No 08/07/2022 10:21 AM CDT Pina Love RN documented as of this encounter Mental Status * Does person have difficulty concentrating/remembering/making decisions? Answer Entry Date Author No 07/07/2022 1:46 PM CDT Gurdeep Parra RN documented in this encounter Miscellaneous Notes * Telephone Encounter [...] Office Visit [facility] - Hematology/Oncology [address] [place] [address] Aubree Thomas MD [address] [place] [phone] 09/14/2024 2:00 PM CDT Office Visit [facility] - Neurology [address] [place] [address], [place] [address] Gary Virgen, REGULATORY INTERNSHIP-HR BUSINESS PARTNER [address] [place] [address] 1L [place] [address] 10/17/2024 2:00 PM CDT Office Visit [facility] - Pulmonology [address] [place] [address], [place] [address] Kunal Lennon MD [address] [place] [address] 2L DIV [place] [address] 11/02/2024 1:00 PM CDT Appointment [facility] LAB OP DRAW STATION [address] [place] [address] 11/02/2024 2:00 PM CDT Office Visit [facility] - Nephrology [address] [place] [address] Adarsh Menendez MD [address] [place] [address] 3L [place] [address] 11/09/2024 12:30 PM CDT Office Visit [facility] - GI [address] [place] [address] Raffaele Beck MD [address] [place] [address] 2L [place] [address] 11/17/2024 3:00 PM CDT Office Visit [facility]ician Group - GI [address] [place] [address] Raffaele Beck MD [address] [place] [address] 2L [place] [address] 11/21/2024 2:00 PM CDT Office Visit [facility] - Sleep Services [address] [place] [address] Maura Simmons APNP-HR BUSINESS PARTNER [address] [facility] 2L DIV OF PULMONARY/[place] [address] 02/06/2025 2:00 PM SUPERVISOR NETWORK CONTROL OPERATORS Appointment [facility] CAT SCAN [address] [place] [phone] Beau Myrick MD [address] [facility] 2L DIV OF PULMONARY/[place] [address] documented as of this encounter Goals Goal Patient Goal Type Associated Problems Recent Progress Patient-Stated? Author Medication Management General On track( 025 4:47 PM SUPERVISOR NETWORK CONTROL OPERATORS) Radha De La Fuente, RN Note: Expected end date: Ongoing Interventions: Take all medications as prescribed Let your doctor know right away about any changes in your medications Make sure to request a refill of your medication at least one week prior to your last dose documented as of this encounter Visit Diagnoses Not on filedocumented in this encounter Care Teams Investigative Assistant Relationship Specialty Start Date End Date Saul Marcelino MD [address] [place] [address] PCP - General Family Medicine 09/17/22 02/09/24 None, Physician [facility]2 [place] [address] PCP - General 02/10/24 04/19/24 Saul Marcelino MD [address] [place] [address] PCP - General Family Medicine 04/20/24 documented as of this encounter
--- OUTSIDE RECORDS SUMMARY | 2024-07-26 16:12 | XMS_ITS | Encounter Summary ---
Author Organization [facility] Address [address] [facility] [place] [address] Care Team Providers Care Electrogalvanizing Machine Operator Name Role Phone Saul Marcelino MD Primary Care Provider [phone] None, Physician Primary Care Provider Unavailabl e Saul Marcelino MD Primary Care Provider [phone] Reason for Visit * Reason Onset Date Comments Update 08/17/2023 Encounter Details Date Type Department Care Team (Late st Contact Info) Description 08/17/2023 Telephone [facility] - Centralized Scheduling [address] [place] [address] Ness Burton, AuD [address] [facility] [address] [place] [address] Update Social History Tobacco Use Types Packs/Day [...] degree you have received? 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 Never 08/17/2023 6:57 AM Arleen Dee RN Q2: How many drinks containing alcohol do you have on a typical day when you are drinking? Patient does not drink 08/17/2023 6:57 AM Arleen Dee RN Q3: How often do you have six or more drinks on one occasion? Never 08/17/2023 6:57 AM Arleen Dee RN * Audit-C Score Answer Date of Assessment Author 0 08/17/2023 6:57 AM Arleen Dee RN * Is person deaf or have serious hearing difficulty? Answer Date of Assessment Author Yes 08/17/2023 9:15 AM Arleen Dee RN * Is person blind or have serious difficulty seeing? Answer Date of Assessment Author No 08/17/2023 9:15 AM Arleen Dee RN * Does person have serious difficulty walking/climbing stairs? Answer Date of Assessment Author Yes 08/17/2023 9:15 AM Arleen Dee RN * Does person have difficulty dressing/bathing? Answer Date of Assessment Author No 08/17/2023 9:15 AM Arleen Dee RN * Does person have difficulty doing errands alone? Answer Date of Assessment Author Yes 08/17/2023 9:15 AM Arleen Dee RN documented as of this encounter Mental Status * Does person have difficulty concentrating/remembering/making decisions? Answer Entry Date Author Yes 08/17/2023 9:15 AM Arleen Dee RN documented in this encounter Miscellaneous Notes * Telephone Encounter - Mindy Tristan - 08/17/2023 2:35 PM CDT Pt is calling back after she says someone called and asked her to change her appt for tomorrow withLowe. Pt says that she can not make any changes due to her transportation. She plans to be here tomorrow at 3:30pm. Her phone: [phone] documented in this encounter Plan of Treatment Upcoming Encounters Date Type Department Care Team (Late st Contact Info) Description 08/25/2024 3:00 PM CDT Office Visit [facility] - Hematology/Oncology [address] [place] [address] Aubree Thomas MD [address] [place] [address] 09/14/2024 2:00 PM CDT Office Visit [facility] - Neurology [address] [place] [address], [place] [address] Gary Virgen, FARE ENFORCEMENT OFFICER-VACCINE MANAGER [address] [place] [address] 1L [place] [address] 10/17/2024 2:00 PM CDT Office Visit [facility] - Pulmonology [address] [place] [address], [place] [address] Kunal Lennon MD [address] [place] [address] 2L DIV [place] [address] 11/02/2024 1:00 PM CDT Appointment [facility] LAB OP DRAW STATION [address] [place] [address] 11/02/2024 2:00 PM CDT Office Visit [facility] - Nephrology [address] [place] [address], [place] [address] Adarsh Menendez MD [address] [place] [address] 3L [place] [address] 11/09/2024 12:30 PM CDT Office Visit [facility] - GI [address] [place] [address] Raffaele Beck MD [address] [facility] 2L [place] [address] 11/17/2024 3:00 PM CDT Office Visit [facility] - GI [address] [place] [phone] Raffaele Beck MD [facility] [facility] 2L [place] [address] 11/21/2024 2:00 PM CDT Office Visit [facility] - Sleep Services [address] [place] [address] Maura Simmons, APNP-VACCINE MANAGER [address] [facility] 2L DIV OF PULMONARY/[place] [address] 02/06/2025 2:00 PM CRAFT RECRUITER Appointment [facility] CAT SCAN [address] [place] [phone] Beau Myrick MD [address] [facility] 2L DIV OF PULMONARY/[place] [address] documented as of this encounter Goals Goal Patient Goal Type Associated Problems Recent Progress Patient-Stated? Author Medication Management General On track( 025 4:47 PM CRAFT RECRUITER) Radha De La Fuente, RN Note: Expected end date: Ongoing Interventions: Take all medications as prescribed Let your doctor know right away about any changes in your medications Make sure to request a refill of your medication at least one week prior to your last dose documented as of this encounter Visit Diagnoses Not on filedocumented in this encounter Care Teams Electrogalvanizing Machine Operator Relationship Specialty Start Date End Date Saul Marcelino MD [address] [place] [address] PCP - General Family Medicine 09/17/22 02/09/24 None, Physician [address] [place] [address] PCP - General 02/10/24 04/19/24 Saul Marcelino MD [address] [place] [address] PCP - General Family Medicine 04/20/24 documented as of this encounter
--- OUTSIDE RECORDS SUMMARY | 2024-07-26 16:12 | XMS_ITS | CONTINUITY OF CARE DOCUMENT ---
Author Name mima guillermo Address Unknown Organization [facility] Address [address] [facility] [address] [place] [address] Phone [phone] Care Team Providers Care Entry Level Buyer Name Role Phone mima guillermo Unavailable Unavailable INSURANCE PROVIDERS Payer name Policy type / Coverage type [place] red libertarian [employer] [facility] Medicaid 0 [id number]
--- OUTSIDE RECORDS SUMMARY | 2024-07-26 16:12 | XMS_ITS | Encounter Summary ---
Author Organization [facility] Address [facility] [facility] [place] [address] Care Team Providers Care Automatic Developer Name Role Phone Saul Marcelino MD Primary Care Provider [phone] None, Physician Primary Care Provider Unavailabl e Saul Marcelino MD Primary Care Provider [phone] Reason for Visit * Reason Onset Date Comments Hospital Follow-up 11/25/2023 Encounter Details Date Type Department Care Team (Late st Contact Info) Description 11/25/2023 Telephone [facility] - Cardiology [address] [facility] [place] [address] [place] [address] Andrés Kaye MD [facility] [place] [address] [place], [place] [phone] Hospital Follow-up Social History Tobacco Use Types [...] on file Legal Sex 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 AIR QUALITY SPECIALIST Gender Identity Not on file Sexual Orientation Not on file Occupation Industry Job Start Date Job End Date 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 Answer Date of Assessment Author No 10/05/2023 3:12 PM CDT Bella Armstrong RN * Is person blind or have serious difficulty seeing? Answer Date of Assessment Author No 10/05/2023 3:12 PM CDT Bella Armstrong RN * Does person have serious difficulty walking/climbing stairs? Answer Date of Assessment Author No 10/05/2023 3:12 PM CDT Bella Armstrong RN * Does person have difficulty dressing/bathing? Answer Date of Assessment Author No 10/05/2023 3:12 PM CDT Bella Armstrong RN * Does person have difficulty doing errands alone? Answer Date of Assessment Author No 10/05/2023 3:12 PM KUSUMT Bella Armstrong RN documented as of this encounter Mental Status * Does person have difficulty concentrating/remembering/making decisions? Answer Entry Date Author No 10/05/2023 3:12 PM KUSUMT Bella Armstrong RN documented in this encounter Miscellaneous Notes * Telephone Encounter - Tanja Cantrell - 11/25/2023 12:59 PM CDT Reason for call: Patient was recently hospitalized 11/11-11/20,while in the hospital she experienced chest pains and was advised to f.u with her web project manager prior to being discharged Patient Call Back number: [phone] documented in this encounter Plan of Treatment Upcoming Encounters Date Type Department Care Team (Late st Contact Info) Description 08/25/2024 3:00 PM CDT Office Visit [facility] - Hematology/Oncology [address] [place] [address] Aubree Thomas MD [address] [place] [address] 09/14/2024 2:00 PM CDT Office Visit [facility] - Neurology [address] [place] [address], [place] [address] Gary Virgen, DISTRIBUTION ASSOCIATE-APPLICATIONS TRAINER [address] [place] [address] 1L [place] [address] 10/17/2024 2:00 PM CDT Office Visit [facility] - Pulmonology [address] [place] [address], [place] [address] Kunal Lennon MD [address] [place] [address] 2L DIV [place] [address] 11/02/2024 1:00 PM CDT Appointment [facility] LAB OP DRAW STATION [address] [place] [address] 11/02/2024 2:00 PM CDT Office Visit [facility] - Nephrology [address] [place] [phone] Adarsh Menendez MD [address] [place] [address] 3L [place] [address] 11/09/2024 12:30 PM CDT Office Visit [facility] - GI [address] [place] [phone] Raffaele Beck MD [address] [place] [address] 2L [place] [address] 11/17/2024 3:00 PM CDT Office Visit [facility] - GI [address] [facility], [place] [address] Raffaele Beck MD [address] [facility] 2L [place] [address] 11/21/2024 2:00 PM CDT Office Visit [facility] - Sleep Services [address] [place] [address] Maura Simmons APNP-APPLICATIONS TRAINER [address] [facility] 2L DIV OF PULMONARY/[place] [address] 02/06/2025 2:00 PM AIR QUALITY SPECIALIST Appointment [facility] CAT SCAN [address] [place] [address] Beau Myrick MD [address] [facility] 2L DIV OF PULMONARY/[place] [address] documented as of this encounter Goals Goal Patient Goal Type Associated Problems Recent Progress Patient-Stated? Author Medication Management General On track( 025 4:47 PM AIR QUALITY SPECIALIST) Radha De La Fuente, RN Note: Expected end date: Ongoing Interventions: Take all medications as prescribed Let your doctor know right away about any changes in your medications Make sure to request a refill of your medication at least one week prior to your last dose documented as of this encounter Visit Diagnoses Not on filedocumented in this encounter Care Teams Automatic Developer Relationship Specialty Start Date End Date Saul Marcelino MD [address] [place] [phone] PCP - General Family Medicine 09/17/22 02/09/24 None, Physician [address] [place] [address] PCP - General 02/10/24 04/19/24 Saul Marcelino MD [address] [place] [address] PCP - General Family Medicine 04/20/24 documented as of this encounter
--- OUTSIDE RECORDS SUMMARY | 2024-07-26 16:12 | XMS_ITS | Encounter Summary ---
Author Organization [facility] Address [address] [facility] [place] [address] Care Team Providers Care Major Sales Associate Name Role Phone Timmy Baldwin MD Primary Care Provider [phone] Dontae Min DO Primary Care Provider [phone] Dontae Min DO Primary Care Provider [phone] Saul Marcelino MD Primary Care Provider [phone] None, Physician Primary Care Provider [facility] Saul Marcelino MD Primary Care Provider + [phone] Encounter Details Date Type Department Care Team (Latest Contact Info) Description 05/14/2022 Ambulatory Consult [facility] [address]L [address] [facility], [place] [address] Shelley Ortega, KIMO Cystadenoma, hepatobiliary ; Cystic [...] e alcohol) prior 2-3 times a month Comments No Sex and Gender Information Value Date Recorded Sex Assigned at Not on file Legal Sex 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 MATERIAL FLOW ANALYST Gender Identity Not on file Sexual Orientation Not on file COVID-19 Exposure Response Date Recorded In the last 10 days, have yo u been in contact with someone who was confirmed or suspected to have Coronavirus/COVID-19? No / Unsure 04/24/2022 1:12 PM MATERIAL FLOW ANALYST documented as of this encounter Plan of Treatment Upcoming Encounters Date Type Department Care Team (Late st Contact Info) Description 08/25/2024 3:00 PM CDT Office Visit [facility]ician Group - Hematology/Oncology [address] [place] [address] Aubree Thomas MD [address] [place] [address] 09/14/2024 2:00 PM CDT Office Visit [facility]ician Group - Neurology [address] [place] [address], [place] [phone] Gary Virgen APRN-ACID CONDENSER [address] [place] [address] 1L [place] [address] 10/17/2024 2:00 PM CDT Office Visit [facility]ician Group - Pulmonology [address] [place] [address], [place] [phone] Kunal Lennon MD [address] [place] [address] 2L DIV [place] [address] 11/02/2024 1:00 PM CDT Appointment [facility] LAB OP DRAW STATION [address] [place] [address] 11/02/2024 2:00 PM CDT Office Visit [facility] Group - Nephrology [address] [place] [address] [place] [phone] Adarsh Menendez MD [address] [place] [address] 3L [place] [address] 11/09/2024 12:30 PM CDT Office Visit [facility] Physician Group - GI [address] [place] [phone] [place] [address] [place] [address] 2L [place] [address] 11/17/2024 3:00 PM CDT Office Visit [facility] Physician Group - GI [address] [place] [phone] [place] [address] [place] [address] 2L [place] [address] 11/21/2024 2:00 PM CDT Office Visit [facility] Physician Group - Sleep Services [address] [place] [address] Maura Simmons, APNP-ACID CONDENSER [address] [place] [address] 2L DIV OF PULMONARY/[place] [address] 02/06/2025 2:00 PM MATERIAL FLOW ANALYST Appointment [facility] CAT SCAN [address] [place] [phone] Beau Myrick MD [address] [place] [address] 2L DIV OF PULMONARY/[place] [address] documented as of this encounter Goals Goal Patient Goal Type Associated Problems Recent Progress Patient-Stated? Author Medication Management General On track( 025 4:47 PM MATERIAL FLOW ANALYST) Radha De La Fuente, RN Note: Expected [...] unspecified BMI, unspecified whether serious comorbidity present documented in this encounter Care Teams Major Sales Associate Relationship Specialty [place] [address] [address] PCP - General 05/12/22 06/03/22 Dontae Min DO [address] [place] [address] PCP - General 06/04/22 06/09/22 Dontae Min DO [address] [place] [address] PCP - General 06/10/22 09/16/22 Saul Marcelino MD [address] [place] [address] PCP - General Family Medicine 09/17/22 02/09/24 None, Physician [address] [place] [address] PCP - General 02/10/24 04/19/24 Saul Marcelino MD [address] [place] [address] PCP - General Family Medicine 04/20/24 documented as of this encounter
--- OUTSIDE RECORDS SUMMARY | 2024-07-26 16:12 | XMS_ITS | Clinical Summary ---
Author Organization [facility] A Address [address] [place] [address] Care Team Providers Care Dog Obedience Instructor Name Role Phone Dontae Min DO Primary Care Provider [phone] Allergies Active Allergy Reactions Criticality Noted Date [...] artery disease of n ative artery of [place] heart with stable angina pectoris 09/17/2022 Nontoxic [...] 03/15/2020 Assessment & Plan (04/26/2020 3:09 PM FIELD SEISMOLOGIST): Controlled with medication including Lasix CKD - continue medication per PCP Assessment & Plan (03/15/2020 3:58 PM FIELD SEISMOLOGIST): Controlled with medication including Lasix CKD - continue medication per PCP Mixed hyperlipidemia 03/15/2020 Hypercalcemia 03/15/2020 Assessment & Plan (04/26/2020 3:09 PM FIELD SEISMOLOGIST): Detected on labs on 03/09/20 Calcium of [...] functions Assessment & Plan (03/15/2020 3:57 PM FIELD SEISMOLOGIST): Detected on recent labs on 03/09/20 Calcium [...] on file Legal Sex Female 12:19 AM FIELD SEISMOLOGIST Gender Identity Not on file Sexual Orientation [...] PM CDT MR Gus Mamm R Acc#: [id number] DATE OF EXAM: Oct 05 2012 Performed [...] - 08/07/2016 MR Diag Mamm R Acc#: [id number] DATE OF EXAM: Oct 05 2012 Performed [...] Most Recently Relevant to Health Maintenance Insurance [facility] [id number] [place] [address] [facility] MEDICARE MEDICARE [facility] Advance Directives For more information, please contact: [phone] * Full Code (Latest Code Status on File) Date Activated Date Inactivated Comments 11/28/2020 7:15 PM 11/29/2020 7:45 PM Care Teams Dog Obedience Instructor Relationship Specialty Start Date End Date Dontae Min DO PCP - General Internal Medicine 09/28/20
--- OUTSIDE RECORDS SUMMARY | 2024-07-26 16:12 | XMS_ITS ---
Author Organization [facility] A Address [address] [place] [address] Care Team Providers Care Supervisor Wet Room Name Role Phone Dontae Min DO Primary Care Provider [phone] Active Problems Problem Noted Date Diagnosed Date Renal disorder 12/08/2023 Overview (12/08/2023): Kidney failure Generalized anxiety disorder with panic attacks 05/14/2023 Leg cramps 05/14/2023 BERTA (obstructive sleep apnea) 05/14/2023 PND (paroxysmal nocturnal dyspnea) 05/14/2023 Restless legs syndrome (RLS) 05/14/2023 Stage 3b chronic kidney disease 05/14/2023 Cystic disease of liver 09/18/2022 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 [place] heart with stable angina pectoris 09/17/2022 Nontoxic [...] 03/15/2020 Assessment & Plan (04/26/2020 3:09 PM CUPOLA PATCHER HELPER): Controlled with medication including Lasix CKD - continue medication per PCP Assessment & Plan (03/15/2020 3:58 PM CUPOLA PATCHER HELPER): Controlled with medication including Lasix CKD - continue medication per PCP Mixed hyperlipidemia 03/15/2020 Hypercalcemia 03/15/2020 Assessment & Plan (04/26/2020 3:09 PM CUPOLA PATCHER HELPER): Detected on labs on 03/09/20 Calcium of [...] functions Assessment & Plan (03/15/2020 3:57 PM CUPOLA PATCHER HELPER): Detected on recent labs on 03/09/20 Calcium [...]
--- OUTSIDE RECORDS SUMMARY | 2024-07-26 16:12 | XMS_ITS | Referral Summary ---
Author Organization [facility] A Address [address] [place] [address] Care Team Providers Care Copper Plater Name Role Phone Dontae Min DO Primary Care Provider [phone] Allergies Active Allergy Reactions Criticality Noted Date [...] artery disease of n ative artery of [place] heart with stable angina pectoris 09/17/2022 Nontoxic [...] 03/15/2020 Assessment & Plan (04/26/2020 3:09 PM METAL CUT OFF SAW TENDER): Controlled with medication including Lasix CKD - continue medication per PCP Assessment & Plan (03/15/2020 3:58 PM METAL CUT OFF SAW TENDER): Controlled with medication including Lasix CKD - continue medication per PCP Mixed hyperlipidemia 03/15/2020 Hypercalcemia 03/15/2020 Assessment & Plan (04/26/2020 3:09 PM METAL CUT OFF SAW TENDER): Detected on labs on 03/09/20 Calcium of [...] functions Assessment & Plan (03/15/2020 3:57 PM METAL CUT OFF SAW TENDER): Detected on recent labs on 03/09/20 Calcium [...] on file Legal Sex Female 12:19 AM METAL CUT OFF SAW TENDER Gender Identity Not on file Sexual Orientation [...] PM CDT MR Weber Mamm R Acc#: [id number] DATE OF EXAM: Oct 05 2012 Performed [...] technology was employed plus computer-aided detection software (Kickfire) was utilized in interpretation of these images. [...] - 08/07/2016 MR Weber Mamm R Acc#: [id number] DATE OF EXAM: Oct 05 2012 Performed [...] Most Recently Relevant to Health Maintenance Insurance [facility] MEDICARE MEDICARE IDPA Advance Directives For more information, please contact: [phone] * Full Code (Latest Code Status on File) Date Activated Date Inactivated Comments 11/28/2020 7:15 PM 11/29/2020 7:45 PM Care Teams Copper Plater Relationship Specialty Start Date End Date Dontae Min DO PCP - General Internal Medicine 09/28/20
--- OUTSIDE RECORDS SUMMARY | 2024-07-26 16:12 | XMS_ITS | Patient Health Record ---
Author Organization [facility] Address [address] [place] [address] Care Team Providers Care Lead Laying And Gluing Machine Operator Name Role Phone Saul Marcelino MD Primary Care Provider UnavailDaniele Moran Unavailable [phone] Ondina Hyde Unavailable [phone] Migration, Provider Unavailable Unavailable Allergies Allergen (clinical [...] Duration) Notes Start Date End Date Status Carvedilol 25 MG Oral 07/31/2023 Ac tive Doxazosin Mesylate 4 MG Oral 07/31/2023 Active Trelegy Ellipta 100-62.5-25 mcg Inhalation *Pick strength-form from DTT for eRX* 07/31/2023 Active Sertraline HCl 100 MG 1.5 tablet Oral Once a day for 90 days Active CHOLECALCIFEROL (VITAMIN D3) 25 MCG (1,000 UNIT) CAPSULE *Reorder from DTT for eRx and Interaction Alerts* 07/31/2023 Active traZODone HCl 100 MG 1 tablet at bedtime Oral Once a day for 90 days As needed Active Meclizine HCl 25 MG Oral 07/31/2023 Active Amantadine HCl 100 MG Oral 07/31/2023 Active Albuterol Sulfate 1.25 MG/3ML Inhalation 07/31/2023 Active buPROPion HCl ER (SR) 150 MG 1 tablet Orally twice a day for 30 days take in the morning and afternoon 06/23/2024 Active Loratadine 10 MG Oral 07/31/2023 Ac tive HYDROcodone-Acetaminoph en 10-325 MG Oral 07/31/2023 Active Ingrezza 80 MG 1 capsule Orally Once a day for 30 days Active Varenicline Tartrate(Continue) 1 MG Oral *Reorder from DTT for eRx and Interaction Alerts* 07/31/2023 Active Ondansetron HCl 4 MG Oral 07/31/2023 Active amLODIPine Besylate 10 MG Oral 07/31/2023 Active ProAir HFA 108 (90 Base) MCG/ACT Inhalation 07/31/2023 Active HYDROcodone-Acetaminoph en 5-325 MG Oral 07/31/2023 Active Aspirin 81 MG Oral *Pick strength-form from DTT for eRX* 07/31/2023 Active Levalbuterol HCl 1.25 MG/3ML Inhalation 07/31/2023 Active Valsartan 160 MG Oral 07/31/2023 Ac tive Naproxen 500 MG Oral 07/31/2023 Act reji Immunizations Vaccine Route Administration Date Status Comme nts Pfizer Biontech Covid-19 Vac cine 2nd dose Unknown 09/02/2020 Administered Pfizer Biontech Covid-19 Vac cine 2nd dose Unknown 09/23/2020 Administered Pfizer Biontech Covid-19 Vac cine 2nd dose Unknown 04/04/2021 Administered Pfizer-Biontech Covid-19 Vac cine 1st dose Unknown 10/30/2021 Administered RSV-MAb (Respiratory syncyti al virus immune globulin) Unknown 02/10/2023 Administered Social History Tobacco Use: Social History Observation Description Date Details (start date - stop date) Current Smoker NA - NA Sex Assigned At : Social History Observation Description Sex Assigned At Female Tobacco Control (Standard) Question Answer Notes Tobacco use: Current smoker How often do you smoke cigarettes? Every day How many cigarettes a day do you smoke? 6-10 How soon after you wake up do you smoke your fir st cigarette? 6-30 minutes Are you interested in quitting? Ready to quit Problems Problem Type SNOMED Code ICD Code Onset Dates Problem Status W/U Status Risk Notes Problem Tobacco user (286404620) Nicotine dependence, cigarettes, uncomplicated (F17.210) 4 Active confirmed Problem Mild recurrent major depression (92589721) Major depressive disorder, recurrent, mild (F33.0) 4 Active confirmed Problem Drug-induced tardive dystonia (670044304) Drug induced subacute dyskinesia (G24.01) 4 Active confirmed Problem Insomnia (998820717) Other insomnia (G47.09) 4 Active confirmed Problem Chronic obstructive pulmonary disease (69377775) Chronic obstructive pulmonary disease, unspecified (J44.9) 4 Active confirmed Problem Chronic kidney disease stage 3 (disorder) (140667627) Chronic kidney disease, stage 3 unspecified (N18.30) 4 Active confirmed Vital Signs Heart Rate 50 /min 07/26/2024 Height-cm 154.94 cm 07/26/2024 Blood pressure diastolic 72 mm Hg 07/26/2024 Weight-kg 73.03 kg 07/26/2024 Height 61.00 in 07/26/2024 Blood pressure systolic 122 mm Hg 07/26/2024 Weight 161 lbs 07/26/2024 BMI 30.42 kg/m2 07/26/2024 Encounters Encounter Location Date Provider Diagnosis [facility] [address] [place] [address] 07/26/2024 Daniele Vasquez Major depressive disorder, recurrent, mild F33.0 ; Other insomnia G47.09 ; Encounter for screening for cardiovascular disorders Z13.6 ; Nicotine use Z72.0 ; Encounter for screening for depression Z13.31 ; Drug induced subacute dyskinesia G24.01 ; Chronic kidney disease, stage 3 unspecified N18.30 ; Nicotine dependence, cigarettes, uncomplicated F17.210 and Chronic obstructive pulmonary disease, unspecified J44.9 [facility] [address] [facility] [address] [address] 07/31/2023 Daniele Vasquez Chronic kidney disease, stage 3 unspecified N18.30 ; Major depressive disorder, recurrent, mild F33.0 ; Nicotine dependence, cigarettes, uncomplicated F17.210 ; Chronic obstructive pulmonary disease, unspecified J44.9 ; Other insomnia G47.09 and Drug induced subacute dyskinesia G24.[address] [facility] [address] [place] [address] 11/12/2023 Daniele Vasquez Chronic kidney disease, stage 3 unspecified N18.30 ; Major depressive disorder, recurrent, mild F33.0 ; Nicotine dependence, cigarettes, uncomplicated F17.210 ; Chronic obstructive pulmonary disease, unspecified J44.9 ; Other insomnia G47.09 and Drug induced subacute dyskinesia G24.[address] [facility] [address] [place] [address] 02/09/2024 Danieleparth Krishnaa Chronic kidney disease, stage 3 unspecified N18.30 ; Major depressive disorder, recurrent, mild F33.0 ; Nicotine dependence, cigarettes, uncomplicated F17.210 ; Chronic obstructive pulmonary disease, unspecified J44.9 ; Other insomnia G47.09 and Drug induced subacute dyskinesia G24.[address] [address] 03/09/2024 Danieleparth Krishnaa Chronic kidney disease, stage 3 unspecified N18.30 ; Major depressive disorder, recurrent, mild F33.0 ; Nicotine dependence, cigarettes, uncomplicated F17.210 ; Chronic obstructive pulmonary disease, unspecified J44.9 ; Other insomnia G47.09 and Drug induced subacute dyskinesia G24.[address] [address] 06/07/2024 Daniele Krishnaa [address] [address] 06/23/2024 Danieleparth Krishnaa Major depressive disorder, recurrent, mild F33.0 ; Drug induced subacute dyskinesia G24.01 ; Chronic kidney disease, stage 3 unspecified N18.30 ; Nicotine dependence, cigarettes, uncomplicated F17.210 ; Other insomnia G47.09 ; Encounter for screening for cardiovascular disorders Z13.6 ; Nicotine use Z72.0 ; Encounter for screening for depression Z13.31 and Chronic obstructive pulmonary disease, unspecified J44.[address] [address] 07/29/2023 Provider Migration [address] [address] 08/10/2023 Provider Migration [facility], [facility] [address] [facility] [address] [address] 08/11/2023 Provider [facility], [facility] [address] [facility] [address] [address] 08/19/2023 Provider [facility], [facility] [address] [facility] [address] [address] 08/22/2023 Provider [facility], [facility] [address] [facility] [address] [address] 08/23/2023 Provider [facility], [facility] [address] [facility] [address] [address] 06/29/2024 Daniele Vasquez Assessments Encounter Date Diagnosis [...] 3 unspecified (ICD-10 - N18.30) followed by glost kiln operator 1. Depression: - Patient reports taking Sertraline [...] three months or sooner if needed. 03/09/2024 Chronic kidney disease, stage 3 unspecified (ICD-10 - N18.30) followed by glost kiln operator 1. Tardive Dyskinesia: - Patient reports improvement [...] necessary adjustments to the treatment plan. 06/23/2024 Major depressive disorder, recurrent, mild (ICD-10 - F33.0) 02/09/2024 Chronic kidney disease, stage 3 unspecified (ICD-10 - N18.30) followed by glost kiln operator 1. Depression: - Patient reports stable depressive [...] kidney function and follow up with the glost kiln operator as recommended. 6. Smoking cessation: - Patient reports quitting smoking for 2 days and using nicotine patches. Plan: - Congratulate the patient on their progress and encourage continued efforts to quit smoking. - Offer additional support and resources if needed. Follow-up: - Schedule a follow-up appointment in one month to assess the patient's overall progress and response to the changes in medication. 07/26/2024 Major depressive disorder, recurrent, mild (ICD-10 - F33.0) 07/26/2024 Other insomnia (ICD-10 - G47.09) 02/09/2024 Major depressive disorder, recurrent, mild (ICD-10 [...] kidney function and follow up with the glost kiln operator as recommended. 6. Smoking cessation: - Patient reports quitting smoking for 2 days and using nicotine patches. Plan: - Congratulate the patient on their progress and encourage continued efforts to quit smoking. - Offer additional support and resources if needed. Follow-up: - Schedule a follow-up appointment in one month to assess the patient's overall progress and response to the changes in medication. 06/23/2024 Drug induced subacute dyskinesia (ICD-10 - [...] necessary adjustments to the treatment plan. 11/12/2023 Major depressive disorder, recurrent, mild (ICD-10 [...] three months or sooner if needed. 03/09/2024 Nicotine dependence, cigarettes, uncomplicated (ICD-10 - [...] necessary adjustments to the treatment plan. 11/12/2023 Nicotine dependence, cigarettes, uncomplicated (ICD-10 - [...] in three months or sooner if needed. 07/26/2024 Encounter for screening for cardiovascular disorders (ICD-10 - Z13.6) 02/09/2024 Nicotine dependence, cigarettes, uncomplicated (ICD-10 - [...] kidney function and follow up with the glost kiln operator as recommended. 6. Smoking cessation: - Patient reports quitting smoking for 2 days and using nicotine patches. Plan: - Congratulate the patient on their progress and encourage continued efforts to quit smoking. - Offer additional support and resources if needed. Follow-up: - Schedule a follow-up appointment in one month to assess the patient's overall progress and response to the changes in medication. 06/23/2024 Chronic kidney disease, stage 3 unspecified (ICD-10 - N18.30) followed by glost kiln operator 07/26/2024 Nicotine use (ICD-10 - Z72.0) 02/09/2024 Chronic obstructive pulmonary disease, unspecified (ICD-10 [...] kidney function and follow up with the glost kiln operator as recommended. 6. Smoking cessation: - Patient reports quitting smoking for 2 days and using nicotine patches. Plan: - Congratulate the patient on their progress and encourage continued efforts to quit smoking. - Offer additional support and resources if needed. Follow-up: - Schedule a follow-up appointment in one month to assess the patient's overall progress and response to the changes in medication. 11/12/2023 Chronic obstructive pulmonary disease, unspecified (ICD-10 [...] Tobacco Use: Care Instructions material was published 03/09/2024 Chronic obstructive pulmonary disease, unspecified (ICD-10 [...] any necessary adjustments to the treatment plan. 03/09/2024 Other insomnia (ICD-10 - G47.09) 1. [...] necessary adjustments to the treatment plan. 06/23/2024 Other insomnia (ICD-10 - G47.09) 11/12/2023 Other insomnia (ICD-10 - G47.09) 1. [...] three months or sooner if needed. 02/09/2024 Other insomnia (ICD-10 - G47.09) 1. [...] kidney function and follow up with the glost kiln operator as recommended. 6. Smoking cessation: - Patient reports quitting smoking for 2 days and using nicotine patches. Plan: - Congratulate the patient on their progress and encourage continued efforts to quit smoking. - Offer additional support and resources if needed. Follow-up: - Schedule a follow-up appointment in one month to assess the patient's overall progress and response to the changes in medication. 07/26/2024 Encounter for screening for depression (ICD-10 - Z13.31) 02/09/2024 Drug induced subacute dyskinesia (ICD-10 - [...] kidney function and follow up with the glost kiln operator as recommended. 6. Smoking cessation: - Patient reports quitting smoking for 2 days and using nicotine patches. Plan: - Congratulate the patient on their progress and encourage continued efforts to quit smoking. - Offer additional support and resources if needed. Follow-up: - Schedule a follow-up appointment in one month to assess the patient's overall progress and response to the changes in medication. 06/23/2024 Encounter for screening for cardiovascular disorders (ICD-10 - Z13.6) 07/26/2024 Drug induced subacute dyskinesia (ICD-10 - G24.01) 11/12/2023 Drug induced subacute dyskinesia (ICD-10 - [...] three months or sooner if needed. 03/09/2024 Drug induced subacute dyskinesia (ICD-10 - [...] necessary adjustments to the treatment plan. 06/23/2024 Nicotine use (ICD-10 - Z72.0) 07/26/2024 Chronic kidney disease, stage 3 unspecified (ICD-10 - N18.30) followed by glost kiln operator 07/26/2024 Nicotine dependence, cigarettes, uncomplicated (ICD-10 - F17.210) has tried chantix in the past- states it makes her smoke more, Bupropion- makes dizzy 06/23/2024 Encounter for screening for depression (ICD-10 - Z13.31) 07/26/2024 Chronic obstructive pulmonary disease, unspecified (ICD-10 - J44.9) 06/23/2024 Chronic obstructive pulmonary disease, unspecified (ICD-10 [...] Of Treatment Next Appt Details Provider Name:Daniele Cuco allen, 10/19/2024 01:45:00 PM, [address] [facility] [address], [facility] [address], [place], [address], Insurance Providers Payer Name Payer Address Payer Phone Subscriber Number Group Number Insured Name Patient Relationship to Insured Coverage Start Date Coverage End Date Medicare-I l Medicare [address] [place] [address] [id number] RODRI YUSUF Self - patient is the insured Medicaid-I l Medicaid [address] [address] [place] [id number] RODRI YUSUF Self - patient is the insured Medical (General) History Medical History History ICD Code Problems: Chronic kidney disease stage 3 Chronic obstructive lung disease Hepatic cystadenoma Mild recurrent major depression Neuroleptic-induced tardive dyskinesia Persistent insomnia Tobacco dependence caused by cigarettes , Surgical History Surgery Date(Month/Year) Any surgical history Hysterectomy/revise vagina (42348) Unlisted procedure breast (32543) Xcapsl ctrc rmvl cplx wo ecp (07656)
--- OUTSIDE RECORDS SUMMARY | 2024-07-26 16:12 | XMS_ITS | Encounter Summary ---
Author Organization [facility] Address [address] [facility] [place] [address] Care Team Providers Care Chimney Supervisor Brick Name Role Phone Dontae Min DO Primary Care Provider [phone] Timmy Baldwin MD Primary Care Provider [phone] Dontae Min DO Primary Care Provider [phone] Dontae Min DO Primary Care Provider [phone] Saul Marcelino MD Primary Care Provider [phone] None, Physician Primary Care Provider [facility] Saul Marcelino MD Primary Care Provider [phone] Encounter Details Date Type Department Care Team (Late st Contact Info) Description 04/17/2022 Ambulatory Consult [facility] TXP NOE [facility] 3L [address] [facility] [place], [place] [address] Shelley Ortega, RN Social History Tobacco Use [...] on file Legal Sex 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 DEVELOPMENTAL SERVICES WORKER Gender Identity Not on file Sexual Orientation Not on file COVID-19 Exposure Response Date Recorded In the last 10 days, have yo u been in contact with someone who was confirmed or suspected to have Coronavirus/COVID-19? No / Unsure 04/10/2022 3:01 PM DEVELOPMENTAL SERVICES WORKER documented as of this encounter Plan of Treatment Upcoming Encounters Date Type Department Care Team (Late st Contact Info) Description 08/25/2024 3:00 PM CDT Office Visit [facility] - Hematology/Oncology [address] [place] [address] Aubree Thomas MD [address] [place] [address] 09/14/2024 2:00 PM CDT Office Visit [facility] - Neurology [address] [place] [address] [place] [phone] Gary Virgen, WINDING MACHINE OPERATOR-SERVICE WORKER [address] [place] [address] 1L [place] [address] 10/17/2024 2:00 PM CDT Office Visit [facility] - Pulmonology [address] [place] [address], [place] [phone] Kunal Lennon MD [address] [place] [address] 2L DIV OF GEN INTERNAL [place] [address] 11/02/2024 1:00 PM CDT Appointment [facility] LAB OP DRAW STATION [address] [place] [address] 11/02/2024 2:00 PM CDT Office Visit [facility] - Nephrology [address] [place] [phone] Adarsh Menendez MD [address] [place] [address] 3L DIV [place] [address] 11/09/2024 12:30 PM CDT Office Visit [facility] - GI [address] [place] [address] [place] [address] Raffaele Beck MD [address] [facility] 2L DIV [place] GASTROENTER[place] [address] 11/17/2024 3:00 PM CDT Office Visit [facility] - GI [address] [place] [address] [place] [address] [place] [address] 2L DIV [place] GASTROENTER[place] [address] 11/21/2024 2:00 PM CDT Office Visit [facility] - Sleep Services [address] [place] [phone] Maura Simmons APNP-SERVICE WORKER [address] [facility] 2L DIV OF PULMONARY/[place] [address] 02/06/2025 2:00 PM DEVELOPMENTAL SERVICES WORKER Appointment [facility] CAT SCAN [address] [place] [address] Beau Myrick MD [address] [facility] 2L DIV OF PULMONARY/[place] [address] documented as of this encounter Goals Goal Patient Goal Type Associated Problems Recent Progress Patient-Stated? Author Medication Management General On track( 025 4:47 PM DEVELOPMENTAL SERVICES WORKER) Radha De La Fuente, RN Note: Expected end date: Ongoing Interventions: Take all medications as prescribed Let your doctor know right away about any changes in your medications Make sure to request a refill of your medication at least one week prior to your last dose documented as of this encounter Visit Diagnoses Not on filedocumented in this encounter Care Teams Chimney Supervisor Brick Relationship Specialty Start Date End Date Dontae Min DO [address] [address] PCP - General 06/15/19 05/11/22 [place] [address] [address] PCP - General 05/12/22 06/03/22 Dontae Min DO [address] [place] [address] PCP - General 06/04/22 06/09/22 Dontae Min DO [address] [place] [address] PCP - General 06/10/22 09/16/22 Saul Marcelino MD [address] [place] [address] PCP - General Family Medicine 09/17/22 02/09/24 None, Physician [facility] [place] [address] PCP - General 02/10/24 04/19/24 Saul Marcelino MD [address] [place] [address] PCP - General Family Medicine 04/20/24 documented as of this encounter
--- OUTSIDE RECORDS SUMMARY | 2024-07-26 16:13 | XMS_ITS | Clinical Summary ---
Author Organization [facility] [employer] Address [address] [facility] [place] [address] Care Team Providers Care Development Director Name Role Phone Saul Marcelino MD Primary Care Provider [phone] Source Comments [facility] Affiliates and Associated Physician Practices is amultiple site organization consisting of ambulatory clinics and hospital sitesin [place], [place], [place] and [place]. This disclosure is being madepursuant to the Care Everywhere program and may not contain all information available regarding this patient. Last updated 17.[facility] [employer] Allergies Active Allergy Reactions Criticality Noted Date [...] document. Alwaysverify current medications with the patient. HYDROcodone-sadie taminophen (NORCO) 10-325 MG tablet Take 1 (one) tablet by mouth q6h PRN (Pain) 7 Active amLODIPine (NORVASC) 10 MG tablet Take 1 (one) tablet by mouth once daily 8 Active Aspirin 81 MG CAPS Take 81 mg by mouth once daily Active Cholecalciferol (VITAMIN D3) 25 MCG (1000 UT) Take 1 (one) capsule by mouth once daily 2 Active valsartan (Diovan) 160 MG tablet Take 1 (one) tablet by mouth once daily Active sertraline (Zoloft) 100 MG tablet Take 1.5 (one and one-half) tablets by mouth once daily 2 Active traZODone (Desyrel) 100 MG tablet Take 1 (one) tablet by mouth at bedtime 3 Active meclizine (Antivert) 25 MG tablet Take 1 (one) tablet by mouth 2 times daily as needed for Dizziness 3 Active ondansetron, disintegrating, (Zofran ODT) 4 MG tablet Take 1 (one) tablet by mouth every 8 hours as needed for Nausea/Vomiting 4 Active atorvastatin (Lipitor) 80 MG tablet Take 1 (one) tablet by mouth at bedtime 90 tablet 3 4 Active topiramate (Topamax) 25 MG tabletIndicatio ns:Migraine Take 2 (two) tablets by mouth 2 times daily Reasons: Migraine Headache 180 tablet 4 4 Active amantadine (Symmetrel) 100 MG capsule TAKE 1 CAPSULE BY MOUTH ONCE DAILY 90 capsule 5 4 Active albuterol HFA (Proventil; Ventolin; Proair) 108 (90 Base) MCG/ACT inhaler Inhale 2 (two) puffs by mouth every 4 hours as needed 18 g 4 4 Active albuterol (Proventil;Vent temi) (2.5 MG/3ML) 0.083% nebulizer solution Inhale 2.5 (two and one-half) mg by mouth every 6 hours as needed 99 mL 3 4 Active FeroSul 325 (65 Fe) MG tablet Take 1 (one) tablet by mouth once daily 4 Active isosorbide mononitrate CR 24hr (Imdur) 60 MG tablet TAKE 2 TABLETS BY MOUTH ONCE DAILY 180 tablet 3 4 Active carvedilol (Coreg) 25 MG tablet Take 1 (one) tablet by mouth 2 times daily with morning and evening meal 180 tablet 3 4 Active Ingrezza 80 MG CAPS Take 1 (one) capsule by mouth once daily 4 Active polyethylene glycol (Gavilyte-C) 240 g solution Drink half of prep solution at 5pm the night before colonoscopy. Finish the prep at 4am the day of test. 4000 mL 4 Active Additional Information Patient not taking.Reported on 05/23/2024 sodium bicarbonate 650 MG tablet Take 2 (two) tablets by mouth 2 times daily 120 tablet 3 5 Active acetaZOLAMIDE ER 12hr (Diamox Sequel) 500 MG capsule TAKE 1 CAPSULE BY MOUTH TWICE DAILY FOR 6 WEEKS 5 Active dorzolamide (Trusopt) 2 % ophthalmic solution Instill 1 (one) drop into left eye 3 times daily 5 Active umeclidinium-vi lanterol (Anoro Ellipta) 62.5-25 MCG/ACT inhaler Inhale 1 (one) puff by mouth once daily 60 Each 4 5 Active nitroGLYCERIN (Nitrostat) 0.4 MG tablet Dissolve 1 (one) tablet under the tongue every 5 minutes as needed for Angina 100 tablet 5 Active nitroGLYCERIN (Nitrostat) 0.4 MG tablet Dissolve 1 (one) tablet under the tongue every 5 minutes as needed for Angina 100 tablet 3 025 Discontin ued(Reord er) Active Problems Problem Noted Date Diagnosed Date [...] artery disease of n ative artery of [place] heart with stable angina pectoris 09/17/2022 Angina pectoris 06/25/2022 Overview (06/25/2022): Added automatically from request for surgery [id number] Nontoxic multinodular goiter 12/28/2020 Overview (02/13/2021): Last [...] [facility] Card[facility] [address] [place] [address] Andrés Kaye MD MEDICATION REFILL 07/08/2024 Refill [facility] - Pulmonology [address] [place] [address] Maico Murphy MD Refill Request 07/01/2024 Travel 06/14/2024 1:30 PM CDT Office Visit [facility] - Pulmonology [address] [place] [phone] Maico Murphy MD Screening for lung cancer (Primary Dx); Nicotine dependence, cigarettes, uncomplicated; BERTA (obstructive sleep apnea); Centrilobular emphysema; Tobacco abuse; Marijuana abuse; Coronary artery disease of [place] heart with stable angina pectoris, unspecified vessel or lesion type 06/14/2024 Travel 06/10/2024 12:52 PM COMMUNITY LIVING INSTRUCTOR - 06/10/2024 11:59 PM COMMUNITY LIVING INSTRUCTOR Hospital Encounter [facility] [address] [place] [address] Alfonso Herrera MD Discharge Disposition: Home or Self Care 06/07/2024 10:13 AM COMMUNITY LIVING INSTRUCTOR - 06/07/2024 11:59 PM COMMUNITY LIVING INSTRUCTOR Hospital Encounter [facility] NUCLEAR MEDICINE [address] [place] [address] Inocente Renee MD Discharge Disposition: Home or Self Care 06/07/2024 9:42 AM COMMUNITY LIVING INSTRUCTOR - 06/07/2024 10:12 AM COMMUNITY LIVING INSTRUCTOR Hospital Encounter [facility] NUCLEAR MEDICINE [address] [place] [address] Inocente Renee MD Discharge Disposition: Home or Self Care 06/07/2024 Travel 05/27/2024 11:45 AM COMMUNITY LIVING INSTRUCTOR - 05/27/2024 11:59 PM COMMUNITY LIVING INSTRUCTOR Hospital Encounter [facility] PFT [address] [place] [address] Viri Sam MD Discharge Disposition: Home or Self Care 05/27/2024 Travel 05/26/2024 Travel 05/23/2024 2:00 PM COMMUNITY LIVING INSTRUCTOR Office Visit [facility] - Sleep Services [address] [place] [address] Maura Simmons APNP-GROWTH HACKER BERTA (obstructive sleep apnea) (Primary Dx); Sleep related hypoxia; Chronic obstructive pulmonary disease, unspecified COPD type; Excessive daytime sleepiness; Chronic fatigue; Anemia, unspecified type; Hypocalcemia; Stage 3b chronic kidney disease; Hyperparathyroidism; Grade I diastolic dysfunction; Nocturia more than twice per night; Chronic insomnia; Air leak; CPAP use counseling; Obesity (BMI 30-39.9) 05/23/2024 Travel 05/12/2024 11:00 AM COMMUNITY LIVING INSTRUCTOR Office Visit [facility] GI [address] [place] [phone] Raffaele Beck MD Dysphagia, unspecified type (Primary Dx); Colon cancer screening; Screen for colon cancer 05/12/2024 Travel 05/10/2024 Telephone [facility] - Neurology [address] [place] [phone] Gary Virgen APRN-CNP Care Management 05/05/2024 Telephone [facility] - Sleep Services [address] [place] [phone] Radha Sanders Order 05/04/2024 4:50 PM COMMUNITY LIVING INSTRUCTOR - 05/04/2024 11:59 PM COMMUNITY LIVING INSTRUCTOR Hospital Encounter [facility] LAB OP DRAW STATION [address] [place] [phone] Discharge Disposition: Home or Self Care 05/04/2024 3:30 PM COMMUNITY LIVING INSTRUCTOR Office Visit [facility] - Nephrology [address] [place] [phone] Adarsh Menendez MD Stage 3b chronic kidney disease (Primary Dx); Nephrolithiasis 05/04/2024 Travel 05/03/2024 Telephone [facility] [address] [place] [phone] Henrietta Crain RN Pancreatitis 05/03/2024 Travel 04/27/2024 1:00 PM COMMUNITY LIVING INSTRUCTOR Office Visit [facility] - Plastic Surgery [address] [place] [address] [place] [address] Alfonso Herrera MD S/P breast reconstruction, bilateral (Primary Dx); Breast implant status; History of left breast cancer 04/27/2024 Travel from Last 3 Months Immunizations Immunization Administration Dates Next Due 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 0.3mL Purple [...] on file Legal Sex 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 COMMUNITY LIVING INSTRUCTOR Gender Identity Not on file Sexual Orientation Not on file Occupation Industry Job Start Date Job End Date former worked in [employer] Not on file Not on file Not on file Last Filed Vital Signs Vital Sign Reading Time Taken Comments Blood Pressure 143/77 06/14/2024 1:26 PM CDT Pulse 50 06/14/2024 1:26 PM CDT Temperature 36.4 C (97.5 F) 05/12/2024 10:51 AM COMMUNITY LIVING INSTRUCTOR Respiratory Rate 17 06/14/2024 1:26 PM CDT [...] Office Visit [facility] - Hematology/Oncology [address] [place] [address] Aubree Thomas MD [address] [place] [address] 09/14/2024 2:00 PM CDT Office Visit [facility] - Neurology [address] [place] [address], [place] [address] Gary Virgen, PARARESCUE MANAGER-GROWTH HACKER [address] [place] [address] [address] [place] [address] 10/17/2024 2:00 PM CDT Office Visit [facility] - Pulmonology [address] [place] [address], [place] [address] Kunal Lennon MD [address] [place] [address] 2L DIV OF [place] [address] 11/02/2024 1:00 PM CDT Appointment [facility] LAB OP DRAW STATION [address] [place] [address] 11/02/2024 2:00 PM CDT Office Visit [facility] - Nephrology [address] [place] [address], [place] [address] Adarsh Menendez MD [address] [place] [address] 3[address] [place] [address] 11/09/2024 12:30 PM CDT Office Visit [facility] - GI [address] [place] [phone] Raffaele Beck MD [address] [place] [address] 2L DIV [place] [address] 11/17/2024 3:00 PM CDT Office Visit [facility] - GI [address] [place] [phone] Raffaele Beck MD [address] [place] [address] 2[address] DIV [place] [address] 11/21/2024 2:00 PM CDT Office Visit [facility] - Sleep Services [address] [place] [phone] Maura Simmons APNP-GROWTH HACKER [address] [facility] 2L DIV OF PULMONARY/[place] [address] 02/06/2025 2:00 PM COMMUNITY LIVING INSTRUCTOR Appointment [facility] CAT SCAN [address] [place] [phone] Beau Myrick MD [address] [facility] 2L DIV OF PULMONARY/[place] [address] Health Maintenance Due Date Last Done Comments [...] DEPRESSION SCREENING 04/06/2024 SCREENING FOR DIABETES 05/04/2027 , 01/06/2024, 08/25/2023, Additional history exists HEPATITIS C [...] Patient-Stated? Author Medication Management General On track( 4:47 PM COMMUNITY LIVING INSTRUCTOR) No Radha Bellamy RN Note: Expected end date: Ongoing Interventions: Take all medications as prescribed Let your doctor know right away about any changes in your medications Make sure to request a refill of your medication at least one week prior to your last dose Safety General On track( 4:47 PM COMMUNITY LIVING INSTRUCTOR) No Rebecca De Jesus RN Note: Expected end date: ongoing Interventions: [...] last dose Medical Devices Implanted Type Area Cartographic Engineer Device Identifier Shelf Expiration Date Model / Serial / Lot Sys Cor Stent Sng Xd Mr 2.25mm 20mm Dlv - [id number] Implanted:Qty: 1 on 08/17/2023 by Jeane Lu MD at [facility] Left: Coronary [employer]ida [id number] 07/14/2024 [id number] / [id number] Procedures Procedure Name Priority Date/Time Associated Diagnosis Comments US BREAST BILATERAL COMPLETE Routine 06/10/2024 2:13 PM COMMUNITY LIVING INSTRUCTOR Breast implant status S/P breast reconstruction, bilateral NM GASTRIC EMPTYING Routine 06/07/2024 1 :21 PM COMMUNITY LIVING INSTRUCTOR Dysphagia, unspecified type SIX MINUTE WALK Routine 05/27/2024 3:35 PM COMMUNITY LIVING INSTRUCTOR SOB (shortness of breath) on exertion COMPLETE PFT W/WO BRONCHODILATOR Routine 05/27/2024 3:21 PM COMMUNITY LIVING INSTRUCTOR SOB (shortness of breath) on exertion BLOOD GASES ART - PFT Routine 05/27/2024 11:46 AM COMMUNITY LIVING INSTRUCTOR BERTA (obstructive sleep apnea) Sleep related hypoxia Chronic obstructive pulmonary disease, unspecified COPD type MICROALB/CREAT RATIO URINE RANDOM PANEL Routine 05/04/2024 4:59 PM COMMUNITY LIVING INSTRUCTOR Stage 3b chronic kidney disease URINALYSIS REFLEX TO MICROSCOPIC NO CULTURE Routine 05/04/2024 4:59 PM COMMUNITY LIVING INSTRUCTOR Stage 3b chronic kidney disease VITAMIN D 25-HYDROXY Routine 05/04/2024 4:55 PM COMMUNITY LIVING INSTRUCTOR Stage 3b chronic kidney disease PTH INTACT W/O CALCIUM Routine 4:55 PM COMMUNITY LIVING INSTRUCTOR Stage 3b chronic kidney disease MAGNESIUM BLOOD Routine 05/04/2024 4:55 PM COMMUNITY LIVING INSTRUCTOR Stage 3b chronic kidney disease RENAL FUNCTION PANEL Routine 05/04/2024 4:55 PM COMMUNITY LIVING INSTRUCTOR Stage 3b chronic kidney disease CBC W AUTO DIFFERENTIAL Routine 05/04/2024 4:55 PM COMMUNITY LIVING INSTRUCTOR Stage 3b chronic kidney disease EXPOSURE PANEL SOURCE STAT 08/01/2016 1:01 PM CDT from Last 3 Months or Most Recently Relevant to Health Maintenance Results * US Breast Bilateral Complete (06/10/2024 2:13 PM COMMUNITY LIVING INSTRUCTOR) Anatomical Region Laterality Modality Breast Bilateral Mammography 06/10/2024 1:27 PM COMMUNITY LIVING INSTRUCTOR Impressions 06/10/2024 3:19 PM COMMUNITY LIVING INSTRUCTOR IMPRESSION: 1. Intra and extracapsular rupture of [...] 06/10/2024 3:19 PM Narrative 06/10/2024 3:19 PM COMMUNITY LIVING INSTRUCTOR EXAMINATION: COMPLETE BILATERAL (RIGHT AND LEFT) BREAST ULTRASOUND - COMBINED REPORT LOCATION: [facility] EXAM DATE: 06/10/2024 HISTORY: History of [...] nodes are visualized in the left axilla. us Alfonso Herrera MD US ORDERABLES Final Result * NM Gastric Emptying (06/07/2024 1:21 PM COMMUNITY LIVING INSTRUCTOR) Anatomical Region Laterality Modality Abdomen Nuclear Medicine 06/07/2024 10:4 5 AM COMMUNITY LIVING INSTRUCTOR Impressions 06/07/2024 3:38 PM COMMUNITY LIVING INSTRUCTOR Impression: Normal gastric emptying based on 5% retention at 3 hours after ingestion of meal. > Dictated by Norma Matos MD (Braiding Machine Operator) 06/07/2024 10:45 AM IRosa DO have personally reviewed and interpreted this examination/study. > Interpreting Provider: Rosa Lancaster DO on 06/07/2024 3:38 PM Narrative 06/07/2024 3:38 PM COMMUNITY LIVING INSTRUCTOR PROCEDURE: NM GASTRIC EMPTYING DATE/TIME OF EXAM: [...] meal is labeled with 0.5 mCi of [id number] sulfur colloid. Findings: After ingestion of solid [...] meal is labeled with 0.5 mCi of [id number] sulfur colloid. Findings: After ingestion of solid [...] meal. > Dictated by Norma Matos MD (Braiding Machine Operator) 06/07/2024 10:45AM I, Rosa Lancaster DO have personally reviewed and interpreted this examination/study. > Interpreting Provider: Rosa Lancaster DO on 06/07/2024 3:38 PM Inocente Renee MD [place] ORDERABLES Final Result * SIX MINUTE WALK (05/27/2024 3:35 PM COMMUNITY LIVING INSTRUCTOR) Impressions Viri Sam MD - 05/27/2024 3:35 PM COMMUNITY LIVING INSTRUCTOR [facility] DEPARTMENT OF PULMONARY, CRITICAL CARE, AND SLEEP MEDICINE SIX MINUTE WALK TEST Rodri Yusuf 05/28/2024 Interpretation: The patient walked for 6 [...] decreased by 15 meters. Mela Melton MD [facility] fellow, [facility] 05/28/2024 1:34 AM I have personally reviewed the fellow's interpretation of the test and made any necessary changes when needed. Viri Sam MD Glue Plant Operatoralternative dispute resolution mediator Division of Pulmonary, Critical Care and Sleep Medicine [facility] Pager: [phone] Narrative Viri Sam MD - 05/27/2024 3:35 PM COMMUNITY LIVING INSTRUCTOR Mela Melton MD 05/28/2024 1:33 AM Procedure Note Mela Melton MD - 05/27/2024 3:35 PM CST Images from the original note were not included. us Viri Sam MD RESPIRATORY THERAPY ORDERABLES E dited Result - Final * COMPLETE PFT W/WO BRONCHODILATOR (05/27/2024 3:21 PM COMMUNITY LIVING INSTRUCTOR) Impressions Viri Sam MD - 05/27/2024 3:21 PM COMMUNITY LIVING INSTRUCTOR [facility] DEPARTMENT OF PULMONARY, CRITICAL CARE, AND SLEEP [...] Melton MD Pulmonary & Critical Care Fellow, [facility] 1:36 AM 05/28/2024 I have personally reviewed the fellow's interpretation of the test and made any necessary changes when needed. Viri Sam MD Glue Plant Operatoralternative dispute resolution mediator Division of Pulmonary, Critical Care and Sleep Medicine [facility] Pager: [phone] Narrative Viri Sam MD - 05/27/2024 3:21 PM COMMUNITY LIVING INSTRUCTOR Mela Melton MD 05/28/2024 1:33 AM Procedure Note Mela Melton MD - 05/27/2024 3:21 PM CST Images from the original note were not included. us Viri Sam MD RESPIRATORY THERAPY ORDERABLES E dited Result - Final * (ABNORMAL) BLOOD GASES ART - PFT (05/27/2024 11:46 AM [facility]) pH Arterial 7.31(L) 7.35 - 7.45 pH 05/27/2024 12:17 PM [facility] pO2 Arterial 90 80 - 100 mmHg 05/27/2024 12:17 PM [facility] pCO2 Arterial 44 35 - 45 mmHg 12:17 PM [facility] HCO3 Arterial 22.2 20.0 - 30.0 mmol/L 05/27/2024 12:17 PM [facility] BE Arterial -4.0(L) -2.0 - 2.0 mmol/L 05/27/2024 12:17 PM [facility] Oxyhemoglobin Arterial 93.4 % 05/27/2024 12:17 PM [facility] Dexoyhemoglobin (HHB) % 2.4 % 05/27/2024 12:17 PM [facility] Methemoglobin 0.8 0.0 - 2.0 % 05/27/2024 12:17 PM [facility] Carboxyhemoglobin 3.4(H) 0.0 - 2.0 % 2024 12:17 PM [facility] O2 Content Arterial 16.1 Interpret within clinical context ml/dL 05/27/2024 12:17 PM [facility] Hemoglobin by COOX 12.2 12.0 - 15.6 g/dL 05/27/2024 12:17 PM [facility] O2 Saturation Arterial 98 90 - 100 % 05/27/2024 12:17 PM [facility] FI O2 Arterial 21.0 % 05/27/2024 12:17 PM [facility] Blood, arterial ARTERIAL BLOOD SPECIMEN / Unknown Arterial Puncture / Unknown 05/27/2024 11:46 AM COMMUNITY LIVING INSTRUCTOR 05/27/2024 11:47 AM [facility] us Maura A Dettenmeier APNP-GROWTH HACKER LAB - BLOOD GASE S ORDERABLES Final Result [facility] [address] [place] [address], [facility] [phone] * (ABNORMAL) MICROALB/CREAT RATIO URINE RANDOM PANEL (05/04/2024 4:59 PM COMMUNITY LIVING INSTRUCTOR) Albumin Random Urine 525.7 Not Established ug/mL 05/04/2024 6:04 PM [facility] Comment:Result obtained by jose e quan. Creatinine Urine 120.26 Not Established mg/dL 05/04/2024 6:04 PM [facility] Urine Albumin/Creati nine Ratio 437(H) <30 mg/g 05/04/2024 6:04 PM [facility] Urine URINE SPECIMEN OBTAINED BY CLEAN CATCH PROCEDURE / Unknown Collection / Unknown 05/04/2024 4:59 PM COMMUNITY LIVING INSTRUCTOR 05/04/2024 5:19 PM COMMUNITY LIVING INSTRUCTOR Adarsh Menendez MD LAB - URINE CHEMISTRY ORDERABLES Final Result [facility] [address] [place] [address], [facility] [phone] * (ABNORMAL) URINALYSIS REFLEX TO MICROSCOPIC NO CULTURE (05/04/2024 4:59 PM COMMUNITY LIVING INSTRUCTOR) Color UA Yellow Straw, Yellow 05/04/2024 5:41 PM [facility] Clarity UA Clear Clear 05/04/2024 5:41 PM [facility] Specific [place] UA 1.014 1.005 - 1.030 05/04/2024 5:41 PM [facility] pH UA 5.0 5.0 - 8.0 pH 05/04/2024 5:41 PM [facility] Protein UA 2+(A) Negative 05/04/2024 5:41 PM [facility] Glucose UA Negative Negative 05/04/2024 5:41 PM [facility] Ketone UA Negative Negative 05/04/2024 5:41 PM [facility] Bilirubin UA Negative Negative 05/04/2024 5:41 PM [facility] Blood UA Negative Negative 05/04/2024 5:41 PM [facility] Nitrite UA Negative Negative 05/04/2024 5:41 PM COMMUNITY LIVING INSTRUCTOR [facility] Leukocyte Esterase Negative Negative 05/04/2024 5:41 PM [facility] Urobilinogen UA Negative Negative mg/dL 05/04/2024 5:41 PM [facility] RBC UA 3-5 None Seen, 0-2, 3-5 /HPF 05/04/2024 5:41 PM [facility] WBC UA 0-5 None Seen, 0-5 /HPF 05/04/2024 5:41 PM [facility] Squamous Epithelial Cells UA 0-2 None Seen, 0-2, 3-5 /HPF 05/04/2024 5:41 PM [facility] Mucus UA 1+ /LPF 05/04/2024 5:41 PM [facility] Hyaline Casts UA 0-2 None Seen, 0-2 /LPF 05/04/2024 5:41 PM [facility] Urine URINE SPECIMEN OBTAINED BY CLEAN CATCH PROCEDURE / Unknown Collection / Unknown 05/04/2024 4:59 PM COMMUNITY LIVING INSTRUCTOR 05/04/2024 5:27 PM COMMUNITY LIVING INSTRUCTOR Narrative [facility] - 05/04/2024 5:41 PM COMMUNITY LIVING INSTRUCTOR us Adarsh Menendez MD LAB - URINALYSIS ORDERABLES Kathleen l Result [address] [address], [facility] [phone] * (ABNORMAL) PTH INTACT W/O CALCIUM (05/04/2024 4:55 PM COMMUNITY LIVING INSTRUCTOR) PTH Intact 134.2(H) 8.0 - 77.0 pg/mL 05/04/2024 5:52 PM [facility] Blood BLOOD SPECIMEN / Unknown Lab Venipuncture / Unknown 05/04/2024 4:55 PM COMMUNITY LIVING INSTRUCTOR 05/04/2024 5:19 PM COMMUNITY LIVING INSTRUCTOR Adarsh Menendez MD LAB - CHEMISTRY ORDERABLES Final Result [address] [address], [place] [phone] * VITAMIN D 25-HYDROXY (05/04/2024 4:55 PM COMMUNITY LIVING INSTRUCTOR) Pathologist [facility] Vitamin D, 25 Hydroxy 41.3 30.0 - 80.0 ng/mL 05/04/2024 6:04 PM [facility] Comment: The recommendations for 25-Hydroxy Vitamin D [...] Lab Venipuncture / Unknown 05/04/2024 4:55 PM COMMUNITY LIVING INSTRUCTOR 05/04/2024 5:18 PM COMMUNITY LIVING INSTRUCTOR HarrisonAndriy Menendez MD LAB - CHEMISTRY ORDERABLES Final Result [facility] [address] [place] [address], [facility] [phone] * (ABNORMAL) CBC WITH DIFFERENTIAL (05/04/2024 4:55 PM COMMUNITY LIVING INSTRUCTOR) [facility] WBC 12.4(H) 4.0 - 10.7 x10E9/L 05/04/2024 5:41 PM [facility] RBC Count 4.00 3.90 - 5.20 x10E12/L 05/04/2024 5:41 PM [facility] Hemoglobin 11.5(L) 11.9 - 15.8 g/dL 05/04/2024 5:41 PM [facility] Hematocrit 36.2 34.8 - 46.1 % 05/04/2024 5:41 PM [facility] MCV 90.5 80.0 - 98.0 fL 05/04/2024 5:41 PM [facility] MCH 28.8 26.7 - 33.6 pg 05/04/2024 5:41 PM [facility] MCHC 31.8 31.7 - 36.3 g/dL 05/04/2024 5:41 PM [facility] RDW-CV 15.7(H) 11.3 - 14.8 % 05/04/2024 5:41 PM [facility] Platelet Count 198 150 - 420 x10E9/L 05/04/2024 5:41 PM [facility] MPV 12.1(H) 7.8 - 11.4 fL 05/04/2024 5:41 PM [facility] Neutrophil % 69.6 41.0 - 74.0 % 05/04/2024 5:41 PM [facility] Lymphocyte % 19.2 17.0 - 47.0 % 05/04/2024 5:41 PM [facility] Monocyte % 6.9 3.0 - 11.0 % 05/04/2024 5:41 PM [facility] Eosinophil % 3.6 0.0 - 7.0 % 05/04/2024 5:41 PM [facility] Basophil % 0.4 0.0 - 1.6 % 05/04/2024 5:41 PM [facility] Immature Granulocytes % 0.3 0.0 - 1.0 % 05/04/2024 5:41 PM [facility] Neutrophil Absolute 8.61(H) 1.60 - 7.50 x10E9/L 05/04/2024 5:41 PM [facility] Lymphocyte Absolute 2.38 1.00 - 4.40 x10E9/L 05/04/2024 5:41 PM [facility] Monocyte Absolute 0.85 0.15 - 1.00 x10E9/L 05/04/2024 5:41 PM [facility] Eosinophil Absolute 0.44 0.00 - 0.60 x10E9/L 05/04/2024 5:41 PM [facility] Basophil Absolute 0.05 0.00 - 0.13 x10E9/L 05/04/2024 5:41 PM [facility] Blood BLOOD SPECIMEN / Unknown Lab Venipuncture / Unknown 05/04/2024 4:55 PM [facility] 05/04/2024 5:19 PM COMMUNITY LIVING INSTRUCTOR Adarsh Menendez MD LAB - HEMATOLOGY ORDERABLES Kathleen minerva Result [facility] [address] [place] [address], [facility] [phone] * (ABNORMAL) RENAL FUNCTION PANEL (05/04/2024 4:55 PM COMMUNITY LIVING INSTRUCTOR) BUN 34(H) 7 - 26 mg/dL 05/04/2024 5:46 PM [facility] Creatinine 1.75(H) 0.56 - 0.96 mg/dL 05/04/2024 5:46 PM [facility] Sodium 141 136 - 145 mmol/L 05/04/2024 5:46 PM [facility] Potassium 3.9 3.5 - 4.5 mmol/L 05/04/2024 5:46 PM [facility] Chloride 107 98 - 107 mmol/L 05/04/2024 5:46 PM [facility] CO2 26 22 - 29 mmol/L 05/04/2024 5:46 PM [facility] Glucose 100(H) 70 - 99 mg/dL 05/04/2024 5:46 PM [facility] Albumin 2.9(L) 3.4 - 5.0 g/dL 05/04/2024 5:46 PM [facility] Calcium 8.2(L) 8.4 - 10.2 mg/dL 05/04/2024 5:46 PM [facility] Phosphorus 3.9 2.9 - 5.1 mg/dL 05/04/2024 5:46 PM [facility] Anion Gap 8 6 - 16 05/04/2024 5:46 PM [facility] BUN/Creatinine Ratio 19 7 - 23 05/04/2024 5:46 PM [facility] Osmolality Calculated 300(H) 275 - 295 mOsm/kg 05/04/2024 5:46 PM [facility] eGFR by CKD-EPI 32(L) >=90 mL/min/1.7 3 m2 05/04/2024 5:46 PM [facility] Blood BLOOD SPECIMEN / Unknown Lab Venipuncture / Unknown 05/04/2024 4:55 PM COMMUNITY LIVING INSTRUCTOR 05/04/2024 5:18 PM COMMUNITY LIVING INSTRUCTOR us Adarsh Menendez MD LAB - CHEMISTRY ORDERABLES Final Result Performing Organization Address City/[facility]/ZIP Co de Phone Number [address] [address], [facility] [phone] * MAGNESIUM BLOOD (05/04/2024 4:55 PM COMMUNITY LIVING INSTRUCTOR) Pathologist [facility] Magnesium 1.9 1.6 - 2.6 mg/dL 05/04/2024 5:46 PM COMMUNITY LIVING INSTRUCTOR [facility] Blood BLOOD SPECIMEN / Unknown Lab Venipuncture / Unknown 05/04/2024 4:55 PM COMMUNITY LIVING INSTRUCTOR 05/04/2024 5:18 PM COMMUNITY LIVING INSTRUCTOR us Adarsh Menendez MD LAB - CHEMISTRY ORDERABLES Final Result Performing Organization Address [facility]/[place] Co de Phone Number [address] [address], [place] [phone] * EXPOSURE PANEL SOURCE (08/01/2016 1:01 PM CDT) [facility] HIV Antigen/Antibody 1 & 2 Non-react [facility] Comment: Neither HIV-1 p24 Antigen nor HIV-1/HIV-2 Antibodies are detected. Hepatitis C Antibody Non-react [facility] Comment: Hepatitis C Antibody screen indicates no serologic evidence of past or current infection with Hepatitis C Virus. Patients with unexplained liver disease who are immunocompromised or suspected of having acute Hepatitis C infection may benefit from Nucleic Acid Test (LUMA) for Hepatitis C Viral RNA to confirm Hepatitis C status. Hepatitis B Virus Surface Antigen Non-react [facility] Hepatitis B Core Virus Antibody IgM Non-react [facility] Blood specimen (specimen) BLOOD SPECIMEN / Unknown 08/01/2016 1:01 PM CDT 08/01/2016 1:01 PM CDT us River Daugherty MD LAB - CHEMISTRY [place] [address], [facility] [phone] from Last 3 Months or Most Recently Relevant to Health Maintenance Insurance MEDICAID - [place] MEDICARE MEDICARE Member Subscriber Plan / Payer (Ef fective 2021-Present) Name:Rodri Yusuf Member ID:[id number] Relation to Subscriber:Self Name:Rodri Yusuf Subscriber ID:[id number] Payer ID:Not on file Group ID:Not on file Type:Medicare Address: [place] [id number] MED[place]ID - [place] Advance Directives * Full Code (Latest Code Status on File) Date Activated Date Inactivated Comments 08/17/2023 9:20 AM 08/17/2023 2:23 PM * Full Code Date Activated Date Inactivated Comments 08/17/2023 9:06 AM 08/17/2023 9:20 AM * Full Code Date Activated Date Inactivated Comments 07/01/2022 12:41 PM 07/01/2022 3:54 PM Care Teams Development Director Relationship Specialty Start Date End Date Saul Marcelino MD [address] [place] [phone] PCP - General Family Medicine 04/20/24
--- OUTSIDE RECORDS SUMMARY | 2024-07-26 16:13 | XMS_ITS | Encounter Summary ---
Author Organization [facility] Address [facility] [place] [address] Care Team Providers Care Chemical Process Project Engineer Name Role Phone Saul Marcelino MD Primary Care Provider [phone] Reason for Visit * Reason Comments Pancreatitis Encounter Details Date Type Department Care Team (Late st Contact Info) Description 05/03/2024 Telephone [facility] - [address] [facility], [place] [phone] Henrietta Crain RN Pancreatitis Social History Tobacco [...] on file Legal Sex 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 VICE CHAIR Gender Identity Not on file Sexual Orientation Not on file Occupation Industry Job Start Date Job End Date 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 Answer Entry Date Author No 10/05/2023 3:12 PM Bella Haque RN documented in this encounter Miscellaneous Notes * Telephone Encounter - Henrietta Crain RN - 05/04/2024 2:15 PM CST Second call for same problem. Looking for sooner appt with GI team. Soundvamp message sent to GI team. CHAIR * Telephone Encounter - Henrietta Crain RN - 05/03/2024 4:22 PM CST Call received from pt to report nausea before and after eating. Reports hard spots in abdomen. BM -black - taking ferrous sulfate. Additionally reports passage of mucous. Taking odansetron, without help. Using miralax daily. Needs sooner appt than August. Call back number [phone]. GI team notified. CHAIR documented in this encounter Plan of Treatment Upcoming Encounters Date Type Department Care Team (Late st Contact Info) Description 08/25/2024 3:00 PM CDT Office Visit [facility] - Hematology/Oncology [address] [place] [phone] Aubree Thomas MD [address] [place] [phone] 09/14/2024 2:00 PM CDT Office Visit [facility] - Neurology [address] [place] [address], [place] [address] Gary Virgen APRN-STOCK HANDLER [address] [place] [address] [address]L [place] [address] 10/17/2024 2:00 PM CDT Office Visit [facility] - Pulmonology [address] [place] [address], [place] [phone] Kunal Lennon MD [address] [place] [address] 2L DIV [place] [address] 11/02/2024 1:00 PM CDT Appointment [facility] [address] [place] [address] 11/02/2024 2:00 PM CDT Office Visit [facility] - Nephrology [address] [place] [address] [place] [phone] Adarsh Menendez MD [address] [place] [address] 3L [place] [phone] 11/09/2024 12:30 PM CDT Office Visit [facility] - GI [address] [place] [phone] Raffaele Beck MD [address] [place] [address] [address] 2L [place] [phone] 11/17/2024 3:00 PM CDT Office Visit [facility] - GI [address] [facility], [place] [phone] Raffaele Beck MD [address] [facility] 2L [place] [phone] 11/21/2024 2:00 PM CDT Office Visit [facility] - Sleep Services [address] [place] [phone] Maura Simmons, APELISSA-STOCK HANDLER [address] [place] [address] 2L DIV OF PULMONARY/[place] [address] 02/06/2025 2:00 PM VICE CHAIR Appointment [facility] [address] [place] [phone] Beau Myrick MD [address] [place] [address] 2L DIV OF PULMONARY/[place] [address] documented as of this encounter Goals Goal Patient Goal Type Associated Problems Recent Progress Patient-Stated? Author Medication Management General On track( 4:47 PM VICE CHAIR) No Radha Bellamy, RN Note: Expected end date: Ongoing Interventions: Take all medications as prescribed Let your doctor know right away about any changes in your medications Make sure to request a refill of your medication at least one week prior to your last dose Safety General On track( 4:47 PM VICE CHAIR) No Rebecca De Jesus, KIMO Note: Expected end date: ongoing Interventions: Your [...] on filedocumented in this encounter Care Teams Chemical Process Project Engineer Relationship Specialty Start Date End Date Saul Marcelino MD [address] [place] [address] PCP - General Family Medicine 04/20/24 documented as of this encounter
--- OUTSIDE RECORDS SUMMARY | 2024-07-26 16:13 | XMS_ITS | Encounter Summary ---
Author Organization [facility] Address [address] [place] [address] Care Team Providers Care Claims Adjuster Crop Name Role Phone Saul Marcelino MD Primary Care Provider [phone] None, Physician Primary Care Provider Unavailabl e Saul Marcelino MD Primary Care Provider [phone] Encounter Details Date Type Department Care Team (Late st Contact Info) Description 07/22/2023 Telephone [facility] - Neurology [address] [facility] [place] [address] Taylor Perry MD Social History [...] on file Legal Sex 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 HEAT SEAL OPERATOR Gender Identity Not on file Sexual Orientation Not on file Occupation Industry Job Start Date Job End Date 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 Answer Date of Assessment Author Yes 06/08/2023 11:20 AM Michelle Bush RN * Is person blind or have serious difficulty seeing? Answer Date of Assessment Author No 06/08/2023 11:20 AM Michelle Bush RN * Does person have serious difficulty walking/climbing stairs? Answer Date of Assessment Author Yes 06/08/2023 11:20 AM Michelle Bush RN * Does person have difficulty dressing/bathing? Answer Date of Assessment Author No 06/08/2023 11:20 AM Michelle Bush RN * Does person have difficulty doing errands alone? Answer Date of Assessment Author Yes 06/08/2023 11:20 AM Michelle Bush RN documented as of this encounter Mental Status * Does person have difficulty concentrating/remembering/making decisions? Answer Entry Date Author Yes 06/08/2023 11:20 AM Michelle Bush RN documented in this encounter Miscellaneous Notes * Telephone Encounter - Mariola San - 07/22/2023 3:30 PM CDT Pt is calling in today because she had a CT scan w contrast on her chest and trying to find out theresults. Callback number is [phone] documented in this encounter Plan of Treatment Upcoming Encounters Date Type Department Care Team (Late st Contact Info) Description 08/25/2024 3:00 PM CDT Office Visit [facility] - Hematology/Oncology [address] [place] [address] Aubree Thomas MD [address] [place] [address] 09/14/2024 2:00 PM CDT Office Visit [facility] - Neurology [address] [place] [address], [place] [address] Gary Virgen, AITCHBONE BREAKER-ROLL CAPPER [address] [place] [address] 1L [place] [address] 10/17/2024 2:00 PM CDT Office Visit [facility] - Pulmonology [address] [place] [address], [place] [address] Kunal Lennon MD [address] [place] [address] 2L DIV [place] [address] 11/02/2024 1:00 PM CDT Appointment [facility] [address] [place] [address] 11/02/2024 2:00 PM CDT Office Visit [facility] - Nephrology [address] [place] [address], [place] [address] Adarsh Menendez MD [address] [place] [address] 3L [place] [address] 11/09/2024 12:30 PM CDT Office Visit [facility] - GI [address] [place] [address] Raffaele Beck MD [address] [place] [address] 2L [place] [address] 11/17/2024 3:00 PM CDT Office Visit [facility] - GI [address] [place] [address] Raffaele Beck MD [address] [place] [address] 2L [place] [address] 11/21/2024 2:00 PM CDT Office Visit [facility] - Sleep Services [address] [place] [address] Maura Simmons APNP-ROLL CAPPER [address] [facility] 2L DIV OF PULMONARY/[place] [address] 02/06/2025 2:00 PM HEAT SEAL OPERATOR Appointment [facility] [address] [place] [phone] Beau Myrick MD [address] [facility] 2L DIV OF PULMONARY/[place] [address] documented as of this encounter Goals Goal Patient Goal Type Associated Problems Recent Progress Patient-Stated? Author Medication Management General On track( 025 4:47 PM HEAT SEAL OPERATOR) Radha De La Fuente, RN Note: Expected end date: Ongoing Interventions: Take all medications as prescribed Let your doctor know right away about any changes in your medications Make sure to request a refill of your medication at least one week prior to your last dose documented as of this encounter Visit Diagnoses Not on filedocumented in this encounter Care Teams Claims Adjuster Crop Relationship Specialty Start Date End Date Saul Marcelino MD [address] [place] [phone] PCP - General Family Medicine 09/17/22 02/09/24 None, Physician [facility] [place] [address] PCP - General 02/10/24 04/19/24 Saul Marcelino MD [address] [place] [phone] PCP - General Family Medicine 04/20/24 documented as of this encounter
--- OUTSIDE RECORDS SUMMARY | 2024-07-26 16:13 | XMS_ITS | Data Portability ---
Author Organization [facility] [place] Address [address] [place] [address] Care Team Providers Care Ship'S Master Name Role Phone TOSHIA MIN Primary Care [...] requested 2020 021 alexandria Calderon MD, [address] [place], [address], 15:38:20 Procedures None recorded. Surgeries None recorded. Imaging None recorded. Medication Orders None recorded. Patient TargetsNo targets recorded. Patient InstructionsNo instructions recorded. Reason for Referral [facility] y[facility] consult requested Referring Physician: Gracie Thornton, WIRE COMMUNICATIONS ENGINEER, Encounter Date: 07/20/2020 Procedures Surgical History Date Name Laterality Status Provider Name and Address Organization Details Recorded Time 08/15/19 16 Date of Last Mammogram completed [facility] 07/20/2020 15:04:06 04/06/19 15 biopsy of soft tissue of upper arm, superficial completed [facility] 07/20/2020 15:11:44 04/06/19 01 excision of bilateral breasts completed [facility] 07/20/2020 15:13:13 04/06/19 00 insertion of hearing implant in external ear completed [facility] 07/20/2020 15:12:56 04/06/18 96 Total Hysterectomy completed [facility] 07/20/2020 15:12:17 cholecystectomy completed [facility] 07/20/2020 15:11:55 Imaging Results None recorded. Procedure Notes None recorded. Medical Equipment None Reported. Allergies Allergen ID Allergen Name Allergen Category Reaction Reaction Severity Criticality Documentation Date Start Date Code Code System Note Provider Name and Address Organization Details Recorded Time 06407 fluoxetin e medicatio n Not available Not available Not available 07/20/[address] [facility] 14:59:44 70015 tetanus and diphtheri a toxoids Not available Not available Not available Not available 07/20/[address] [facility] 14:59:51 Medications Name Sig Start Date [...] Updated DateTime 07/20/2020 154.94 cm 38.8 kg/m2 03391.59 g 163 mm[Hg] 84 mm[Hg] Brianne Suarez [facility] 14:54:37 Social History Question Answer Notes LastModified by Organizat ion Details LastModified Time Tobacco Smoking Status Current Every Day Smoker Brianne Suarez [facility] 07/20/2020 15:11:08 What Is [...] Anxious, Or Unable To Sleep At Night)? [id number] Information not available 07/20/2020 Do You Use [...] SNOMED-CT Code Diagnosis ICD10 Code Diagnosis Note [id number] Gracie Thornton [facility] [address] [address] 07/20/2020 14:31:05 07/20/2020 15:38:20 Gynecologic examination 24372450 Z01.419 Take Calcium with Vitamin D 12-1500mg daily. Do monthly self breast exams. It is advised to get annual flu shot in the fall and she could obtain at [facility] or [facility] care clinic. If you haven't received the [...] have a mammo on file [facility] in [facility]. [place] PCP Dr. Ezequiel Min per pt History of malignant neoplasm of breast [id number] Z85.3 MUST be set up with a new breast cancer specialist prefers [facility]. She has history of breast cancer and has not adequately followed up for additional imaging since her oncologist moved. Likely needs MRI. Her previous doctors were at [facility] but she states that they refused to [...] Nassar Member ID Guarantor Name 07/20/2020 1 [facility] PRIOR TO 10/04/2020 (MEDICAID REPLACEMENT - HMO) Eduarda Mendezd [id number] Yasmine Mendezd Notes Date Note Type Note Provider Name and Address Organization Details Recorded Time 07/20/2020 text/html Annual Hydroelectric Plant Technician Post-MenopausalRe ported bypatient.Menopau mayela Symptoms:no menopausal symptoms; [...] density (Managed by PCP per pt Dr. Ezequiel Min) Gracie Thornton, ELISSA- [address], [place], [address], [facility] 07/20/2020 15:29:59 OBGyn Episode Ob Episode Information Episode Created Date Number of Fetuses Patient Bloodtype Patient rh Status Prepregnancy Weight lbs Domestic Partner Domestic Partner Phone Father Name Industrial Retrofit Designer Status 07/21/19 21 1 CLOSED Fetus Data [...] Domestic Partner Domestic Partner Phone Father Name Industrial Retrofit Designer Status 07/21/19 21 1 CLOSED Fetus Data [...]
--- OUTSIDE RECORDS SUMMARY | 2024-07-26 16:13 | XMS_ITS | Encounter Summary ---
Author Organization [facility] Address [address] [facility] [place] [address] Care Team Providers Care Floriculture Professor Name Role Phone Saul Marcelino MD Primary Care Provider [phone] Reason for Visit * Reason Onset Date Comments Order 04/26/2024 Encounter Details Date Type Department Care Team (Late st Contact Info) Description 04/26/2024 Telephone [facility] - Sleep Services [address] [place] [address] Maura Simmons, APNP-BIOLOGIST [address] OF PULMONARY/[place] [address] Order Social History Tobacco Use Types Packs/Day [...] on file Legal Sex 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 GLOBAL CHIEF EXPERIENCE OFFICER Gender Identity Not on file Sexual Orientation [...] 10/05/2023 3:12 PM KUSUMT Bella Armstrong RN * Does person have serious difficulty walking/climbing stairs? Answer Date of Assessment Author No 10/05/2023 3:12 PM Bella Haque RN * Does person have difficulty dressing/bathing? Answer Date of Assessment Author No 10/05/2023 3:12 PM CDT Bella Armstrong RN * Does person have difficulty doing errands alone? Answer Date of Assessment Author No 10/05/2023 3:12 PM Bella Haque RN documented as of this encounter Mental Status * Does person have difficulty concentrating/remembering/making decisions? Answer Entry Date Author No 10/05/2023 3:12 PM Bella Haque RN documented in this encounter Miscellaneous Notes * Telephone Encounter - Tanja Cantrell - 04/26/2024 11:31 AM CST Reason for call: Pt would like a call back regarding the need of a new script for her CPAP Patient Call Back number: [phone] AL CHIEF EXPERIENCE OFFICER documented in this encounter Plan of Treatment Upcoming Encounters Date Type Department Care Team (Late st Contact Info) Description 08/25/2024 3:00 PM CDT Office Visit [facility] - Hematology/Oncology [address] [place] [phone] Aubree Thomas MD [address] [place] [address] 09/14/2024 2:00 PM CDT Office Visit [facility] - Neurology [address] [place] [address], [place] [phone] Gary Virgen, NIPPLE MACHINE OPERATOR-BIOLOGIST [address] [place] [address] 1L [place] [address] 10/17/2024 2:00 PM CDT Office Visit [facility] - Pulmonology [address] [place] [address] [place] [phone] Kunal Lennon MD [address] [place] [address] 2L DIV OF [place] [address] 11/02/2024 1:00 PM CDT Appointment [facility] OP DRAW STATION [address] [place] [phone] 11/02/2024 2:00 PM CDT Office Visit [facility] - Nephrology [address] [place] [phone] Adarsh Menendez MD [address] [place] [address] 3L [place] [phone] 11/09/2024 12:30 PM CDT Office Visit [facility] - GI [address] [place] [phone] Raffaele Beck MD [address] [place] [address] 2L DIV [place] [address] 11/17/2024 3:00 PM CDT Office Visit [facility] - GI [address] [place] [address] Raffaele Beck MD [address] [facility] 2L DIV [place] [phone] 11/21/2024 2:00 PM CDT Office Visit [facility] - Sleep Services [address] [place] [phone] Maura Simmons, APNP-BIOLOGIST [address] [facility] 2L DIV OF PULMONARY/[place] [address] 02/06/2025 2:00 PM GLOBAL CHIEF EXPERIENCE OFFICER Appointment [facility] CAT SCAN [address] [place] [phone] Beau Myrick MD [address] [facility] 2L DIV OF PULMONARY/[place] [address] documented as of this encounter Goals Goal Patient Goal Type Associated Problems Recent Progress Patient-Stated? Author Medication Management General On track( 025 4:47 PM GLOBAL CHIEF EXPERIENCE OFFICER) Radha De La Fuente, RN Note: Expected end date: Ongoing Interventions: Take all medications as prescribed Let your doctor know right away about any changes in your medications Make sure to request a refill of your medication at least one week prior to your last dose documented as of this encounter Visit Diagnoses Not on filedocumented in this encounter Care Teams Floriculture Professor Relationship Specialty Start Date End Date Saul Marcelino MD [address] [place] [phone] PCP - General Family Medicine 04/20/24 documented as of this encounter
== END 2024-07-26 14:04 | disposition home or self-care (01) ==
LOC: ANHLAB 14:05
PROVIDERS: PCP Family Medicine; Visit Provider Family Medicine
DX: I25.10 Atherosclerotic heart disease of native coronary artery without angina pectoris (principal); I10 Essential (primary) hypertension
CPT/HCPCS: 36415; 80053; 85027

== ENCOUNTER 2024-12-13 16:43 | Inpatient (IN) | payer MEDICARE, MEDICAID, SELFPAY ==
[2024-12-13] VITALS (26 sets, daily range): BP systolic 158–214; BP diastolic 76–100; PULSE 46–57; RESP 11–21; TEMP 36.4–36.9; O2SAT 92–99; BMI 31.8
--- NOTE | ~2024-12-13 | XR_ITS ---
XR chest 2V 12/13/2024 17:42 Indication: Weakness. Fall. Procedure: 2 view chest Comparison: 02/19/2024 Findings: Heart size normal. Calcified granuloma left mid thorax. No focal air space disease, pulmonary edema, pleural effusion or suspected pneumothorax. Impression: 1: No acute cardiopulmonary disease. Reviewed, dictated and finalized at location O. Impression: 1: No acute cardiopulmonary disease.
--- NOTE | ~2024-12-13 | CT_ITS ---
EXAMINATION: CT facial & cervical spine wo DATE: 12/13/2024 17:57 INDICATION: Status post fall. TECHNIQUE: Computed tomography (CT) of the maxillofacial region and cervical spine was performed without intravenous contrast. The dose-length product (DLP) was 404.81 mGy-cm. Automated exposure control and iterative reconstruction technique were employed. COMPARISON: CT dated 10/24/2021 FINDINGS: MAXILLOFACIAL CT: No acute facial fracture. There is a left-sided cochlear implant. Paranasal sinuses and right mastoid air cells are pneumatized. Orbits are symmetric. CERVICAL SPINE CT: Progression of severe spondylosis at C4-5 with fusion at C5-7. There is degenerative anterolisthesis at C3-4 and C4-5. These findings have progressed since prior CT. There is multilevel uncinate and facet hypertrophy. Odontoid process is normal. There is emphysematous change of the lung apices. No acute fracture or traumatic malalignment. IMPRESSION: 1. No acute abnormality of the facial bones or cervical spine. 2: Progression of severe cervical spondylosis with fusion at C5-7. Reviewed, dictated and finalized at location O.
--- NOTE | ~2024-12-13 | XR_ITS ---
XR knee RT 3V 12/13/2024 17:42 Indication: Status post fall. Right knee pain Procedure: 3 views right knee Comparison: 02/20/2021 Findings: There is anatomic alignment. There is mild osteoarthritis of the medial compartment. No fracture, subluxation or dislocation. No joint effusion. Impression: 1: No acute bone or joint abnormality. Reviewed, dictated and finalized at location O. Impression: 1: No acute bone or joint abnormality.
--- NOTE | ~2024-12-13 | US_ITS ---
US renal BI 12/15/2024 19:21 Procedure: Realtime transabdominal ultrasound of the kidneys and bladder. Indication: Acute renal insufficiency Comparison: CT dated 11/17/2023 Findings: There are echogenic foci bilaterally in the kidneys, consistent with nonobstructing renal stones. No hydronephrosis. There are bilateral renal cysts. No solid renal mass is identified.. The right kidney measures 11.6 cm and left kidney measures 9.9 cm. Bladder within normal limits. Impression: 1: Bilateral echogenic foci of the kidneys consistent with nonobstructing renal stones. Reviewed, dictated and finalized at location O. Impression: 1: Bilateral echogenic foci of the kidneys consistent with nonobstructing renal stones.
--- NOTE | ~2024-12-13 | US_ITS ---
EXAMINATION: US carotid duplex BI DATE: 12/14/2024 11:44 INDICATION: Syncope TECHNIQUE: Grayscale, color Doppler, and pulsed Doppler images of the cervical carotid arteries were obtained. The degree of vessel stenosis is placed in one of the following categories: normal, <50%, 50-69%, >=70% but less than near- occlusion, near-occlusion, or total occlusion. Note that percent stenosis relative to normal distal artery lumen diameter is indirectly measured from velocity measurements as described by Brennan, et al. Radiology 2003; 229:340-346. Notes: Normal: Peak systolic velocity <125 centimeters/sec and no plaque <50%. Peak systolic velocity <125 (EDV <40; ICA/CCA PSV ratio <2.0; used these factors only a tandem lesions or low cardiac output or contralateral disease) 50-69 %: PSV 125-230 (EDV 40-100; ratio 2-4) >= 70% but less than near occlusion: PSV greater than 230 (EDV > 100; ratio> 4.0) Near Occlusion: PSV that is variable; markedly narrowed lumen Occlusion: Absent flow on color/spectral Doppler and no lumen on mcdaniel scale. COMPARISON: None. FINDINGS: RIGHT: The right common carotid artery (CCA) peak systolic velocity (PSV) is 89.2 cm/s. The right internal carotid artery (ICA) PSV is 76.4 cm/s. The right ICA end- diastolic velocity (EDV) is 21.7 cm/s. The right ICA/CCA PSV ratio is 0.9. The external carotid artery (ECA) PSV is 118.3 cm/s. There is antegrade flow in the right vertebral artery. Small amount of noncalcified and calcified plaque scattered throughout the right internal carotid artery. LEFT: The left CCA PSV is 76.4 cm/s. The left ICA PSV is 112.4 cm/s. The left ICA EDV is 33.4 cm/s. The left ICA/CCA PSV ratio is 1.5. The ECA PSV is 112.8 cm/s. There is antegrade flow in the left vertebral artery. Small amount of noncalcified and calcified plaque scattered throughout the left internal carotid artery. IMPRESSION: 1. Less than 50% stenosis in the right internal carotid artery by sonographic criteria. 2. Less than 50% stenosis in the left internal carotid artery by sonographic criteria. Reviewed, dictated and finalized at location Q. IMPRESSION: 1. Less than 50% stenosis in the right internal carotid artery by sonographic c riteria. 2. Less than 50% stenosis in the left internal carotid artery by sonographic cr iteria.
--- NOTE | ~2024-12-13 | XR_ITS ---
XR knee LT 3V 12/13/2024 17:43 INDICATION: Left knee pain after fall PROCEDURE: 3 views left knee COMPARISON: 07/29/2011 FINDINGS: Fracture, dislocation or subluxation is not identified. The soft tissues appear within normal limits. No foreign bodies are identified. IMPRESSION: 1: NO ACUTE BONE OR JOINT ABNORMALITY IDENTIFIED. Reviewed, dictated and finalized at location O.
--- NOTE | ~2024-12-13 | CT_ITS ---
EXAMINATION: CT brain wo con DATE: 12/13/2024 17:57 INDICATION: Status post fall. TECHNIQUE: Computed tomography (CT) of the head was performed without intravenous contrast. The dose-length product was 605.33 mGy-cm. Automated exposure control and iterative reconstruction technique were employed. COMPARISON: CT dated 02/20/2023 FINDINGS: Study degraded by streak artifact secondary to cochlear implant. Normal brain parenchymal volume. No acute infarction, hemorrhage, mass or mass effect. No ventriculomegaly or midline shift. Basilar cisterns are patent. Paranasal sinuses are unremarkable. No depressed skull fracture. IMPRESSION: 1. No acute intracranial abnormality. Reviewed, dictated and finalized at location O.
--- NOTE | 2024-12-13 17:18 | ECG_ITS ---
Test Date: 2024-12-13 17:29:52 Measurements Intervals [place] Rate: 50 P: 24 MD: 222 QRS: -46 QRSD: 108 T: 43 QT: 443 QTc: 404 Interpretive Statements SINUS BRADYCARDIA WITH FIRST DEGREE AV BLOCK POSSIBLE LEFT ATRIAL ENLARGEMENT [-0.1mV P-WAVE IN V1/V2] LEFT ANTERIOR FASCICULAR BLOCK [QRS AXIS <= -45, QR IN I, RS IN II] POSSIBLE LEFT VENTRICULAR HYPERTROPHY [VOLTAGE CRITERIA PLUS LAE OR QRS WIDENING] ABNORMAL ECG Compared to ECG 11/21/2023 19:26:52 First degree AV block now present Electronically Signed On 12-14-2024 15:57:51 CDT by Maury Peña M.D.
--- OUTSIDE RECORDS SUMMARY | 2024-12-13 17:21 | XMS_ITS | Encounter Summary ---
Author Organization [facility] Address [address] [place] [address] Care Team Providers Care Stencil Machine Operator Name Role Phone Dontae Min DO Primary Care Provider [phone] Timmy Baldwin MD Primary Care Provider [phone] Dontae Min DO Primary Care Provider [phone] Dontae Min DO Primary Care Provider [phone] Saul Marcelino MD Primary Care Provider [phone] None, Physician Primary Care Provider Unavailabl e Saul Marcelino MD Primary Care Provider [phone] Francia Hammonds MD Unavailable [phone] Andre Mccann MD Unavailable [phone] Ana Andersen MD Unavailable [phone] Vincent Sandra MD Unavailable Joan [place] MD Unavailable Lyudmila Bangura MD Unavailable Gloria Alatorre MD Unavailable Mony Zaldivar PharmD Unavailable Unavaila Shirley Barillas PharmD Unavailable Unavailable Anastacia Garces RN Unavailable Unavailable Tabatha Solorzano Unavailable Unavailable Ness Ortiz Unavailable Sarah josi Shirleya, Grisel LAWN CARE WORKER-FRAMING MECHANIC Unavailable [phone] Nannette Joshi RN Unavailable Unavailable Sylwia Lovelace POWER OPERATOR Unavailable Unavailab le Encounter Details Date Type Department Care Team (Late Contact Info) Description 04/17/2022 Ambulatory Consult [facility]E [facility] 3L [address] [place] [phone] Shelley Ortega, RN Social History Tobacco Use [...] on file Legal Sex 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 TUBE TRAILER FILLER Gender Identity Not on file Sexual Orientation Not on file COVID-19 Exposure Response Date Recorded In the last 10 days, have yo u been in contact with someone who was confirmed or suspected to have Coronavirus/COVID-19? No / Unsure 04/10/2022 3:01 PM TUBE TRAILER FILLER documented as of this encounter Plan of Treatment Upcoming Encounters Date Type Department Care Team (Late Contact Info) Description 01/04/2025 11:00 AM CDT Ancillary Procedure [facility] - Echosonography [address] [facility], [facility] [address] [place] [address] 01/05/2025 8:30 AM CDT Office Visit [facility] - Nephrology [address] [place] [phone] Francia Hammonds MD [address] [facility] 3L [place] [address] 02/06/2025 2:00 PM TUBE TRAILER FILLER Appointment [facility] CAT SCAN [address] [place] [phone] Beau Myrick MD [address] [facility] 2L DIV OF PULMONARY/[place] [address] 03/16/2025 2:00 PM TUBE TRAILER FILLER Office Visit [facility] - Neurology [address] [facility], [place] [address] Gary Virgen APRN-FRAMING MECHANIC [address] [place] [phone] 03/21/2025 11:00 AM TUBE TRAILER FILLER Office Visit [facility] - Sleep Services [address] [facility] [address] [place] [address] Maura Simmons APELISSA-FRAMING MECHANIC [address] [facility] [address] [place] [address] 06/07/2025 11:00 AM TUBE TRAILER FILLER Office Visit [facility] - Cardiology [address] [facility], [address] [place] [address] Andrés Kaye MD [address] [facility] [address] [place] [address] 09/13/2025 1:45 PM CDT Appointment [facility] CANCER CARE DRAWSTATION [address] [facility], 2nd [place] [address] 09/13/2025 2:00 PM CDT Office Visit [facility] - Hematology/Oncology [address] [place] [address] Aubree [place] MD [address] [place] [address] documented as of this encounter Goals Goal Patient Goal Type Associated Problems Recent Progress Patient-Stated? Author Medication Management General On track( 025 2:47 PM CDT) Radha De La Fuente, RN Note: Expected end date: Ongoing Interventions: Take all medications as prescribed Let your doctor know right away about any changes in your medications Make sure to request a refill of your medication at least one week prior to your last dose documented as of this encounter Visit Diagnoses Not on filedocumented in this encounter Care Teams Stencil Machine Operator Relationship Specialty Start Date End Date Dontae Min DO [address] [place] [address] PCP - General 06/15/19 05/11/22 [place] [address] [address] PCP - General 05/12/22 06/03/22 Dontae Min DO [address] [address] PCP - General 06/04/22 06/09/22 Dontae Min DO [address] [facility] 1 [place] [address] PCP - General 06/10/22 09/16/22 Saul Marcelino MD [address] [place] [address] PCP - General Family Medicine 09/17/22 02/09/24 None, Physician [address] [place] [address] PCP - General 02/10/24 04/19/24 Saul Marcelino MD [address] [place] [address] PCP - General Family Medicine 04/20/24 [place] [address] [place] [address] [place] [address] Instructor Product Inspection Nephrology 11/24/24 Andre Mccann MD [address] [place] [address] Hematology and Oncology 11/24/24 Ana Andersen MD [address] [place] [address] Hematology and Oncology 11/24/24 Vincent Sandra MD [address] [place] [address] Malted Milk Mixer/Oncologist Hematology and Oncology 11/24/24 Joan [place] MD [address] [place] [address] Malted Milk Mixer/Oncologist Hematology and Oncology 11/24/24 Lyudmila Bangura MD [address] [address] Physician Hematology and Oncology 11/24/24 Gloria Alatorre MD [address] [place] [phone] Physician Hematology and Oncology 11/24/24 Mony Zaldivar, PharmD 11/24/24 Shirley Barahona, PharmD Pharmacist 11/24/24 Anastacia Garces RN Registered Nurse 11/24/24 Tabatha Solorzano 11/24/24 Ness Ortiz 11/24/24 Grisel Dobbins, INDRA-FRAMING MECHANIC [facility]1 [place] [address] Nurse Practitioner Nurse Practitioner 11/24/24 Nannette Joshi, RN Registered Nurse 11/24/24 Sylwia Lovelace, POWER OPERATOR [address] [place] [address] Engineering Production Liaison 11/24/24 documented as of this encounter
--- OUTSIDE RECORDS SUMMARY | 2024-12-13 17:21 | XMS_ITS | Encounter Summary ---
Author Organization [facility] Address [facility] [place] [address] Care Team Providers Care Platform Material Handler Manager Name Role Phone Saul Marcelino MD Primary Care Provider [phone] Francia Hammonds MD Unavailable [phone] Andre Mccann MD Unavailable [phone] Ana Andersen MD Unavailable [phone] Vincent Sandra MD Unavailable [phone] Joan [place] MD Unavailable Lyudmila Bangura MD Unavailable Gloria Alatorre MD Unavailable Mony Zaldivar PharmD Unavailable Unavaila ble Shirley Barahona PharmD Unavailable Unavailable Anastacia Garces RN Unavailable Unavailable Tabatha Solorzano Unavailable Unavailable Ness Ortiz Unavailable Sarah Grisel Singh YARDAGE CONTROL CLERK-CLIN NURSE SPEC Unavailable Nannette Joshi RN Unavailable Unavailable Sylwia Lovelace LCSW Unavailable Unavailab le Reason for Visit * Reason Onset Date Comments MEDICATION REFILL 10/04/2024 Encounter Details Date Type Department Care Team (Late st Contact Info) Description 10/04/2024 Refill [facility] - Pulmonology [address] [facility], [place] [address] Beau Myrick MD [address] OF PULMONARY/[place] [address] MEDICATION REFILL Social History Tobacco Use Types Packs/Day Years Used Date Smoking Tobacco: Former Cigarettes 0.3 60.7 S tarted: 1965 Smokeless Tobacco: Current Comments:Pack of cigarettes lasts about a week [...] on file Legal Sex 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 NEUROLOGICAL SURGERY TEACHER Gender Identity Not on file Sexual Orientation Not on file Occupation Industry Job Start Date Job End Date 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 Answer Date of Assessment Author No 10/05/2023 3:12 PM Bella Haque RN * Is person blind or have serious difficulty seeing? Answer Date of Assessment Author No 10/05/2023 3:12 PM Bella Haque RN * Does person have serious difficulty walking/climbing stairs? Answer Date of Assessment Author No 10/05/2023 3:12 PM Bella Haque RN * Does person have difficulty dressing/bathing? Answer Date of Assessment Author No 10/05/2023 3:12 PM Bella Haque RN * Does person have difficulty doing errands alone? Answer Date of Assessment Author No 10/05/2023 3:12 PM CDT Bella Armstrong, RN documented as of this encounter Mental Status * Does person have difficulty concentrating/remembering/making decisions? Answer Entry Date Author No 10/05/2023 3:12 PM CDT Bella Armstrong, RN documented in this encounter Plan of Treatment Upcoming Encounters Date Type Department Care Team (Late st Contact Info) Description 01/04/2025 11:00 AM CDT Ancillary Procedure [facility] - Echosonography [address] [facility], [facility] [address] [place] [address] 01/05/2025 8:30 AM CDT Office Visit [facility] - Nephrology [address] [place] [address], [place] [address] Francia Hammonds MD [facility] 3L [place] [address] 02/06/2025 2:00 PM NEUROLOGICAL SURGERY TEACHER Appointment [facility] CAT SCAN [address] [place] [address] Beau Myrick MD [facility] 2L DIV OF PULMONARY/[place] [address] 03/16/2025 2:00 PM NEUROLOGICAL SURGERY TEACHER Office Visit [facility] - Neurology [address] [place] [address], [place] [address] Gary Virgen, YARDAGE CONTROL CLERK-CLIN NURSE SPEC [address] [place] [address] 1L [place] [address] 03/21/2025 11:00 AM NEUROLOGICAL SURGERY TEACHER Office Visit [facility] - Sleep Services 10[address] [facility] 550 [place] [address] Maura Simmons APNP-CLIN NURSE SPEC 10[address] [facility] 550 [place] [address] 06/07/2025 11:00 AM NEUROLOGICAL SURGERY TEACHER Office Visit [facility] - Cardiology [address] [facility], [address] [place] [address] Andrés Kaye MD [address] [facility] [address] [place] [address] 09/13/2025 1:45 PM CDT Appointment [facility] CANCER CARE DRAWSTATION 3655 [facility], 2nd [place] [address] 09/13/2025 2:00 PM CDT Office Visit [facility] - Hematology/Oncology [address] [place] [phone] Aubree [place] MD [address] [place] [address] documented as of this encounter Goals Goal Patient Goal Type Associated Problems Recent Progress Patient-Stated? Author Medication Management General On track( 025 2:47 PM CDT) No Radha Bellamy, KIMO Note: Expected end date: Ongoing Interventions: Take all medications as prescribed Let your doctor know right away about any changes in your medications Make sure to request a refill of your medication at least one week prior to your last dose Safety General On track( 025 2:48 PM CDT) No Rebecca De Jesus, RN Note: Expected [...] as of this encounter Visit Diagnoses Diagnosis Mild persistent asthma without complication (HCC) Unspecified asthma documented in this encounter Care Teams Platform Material Handler Manager Relationship Specialty Start Date End Date Saul Marcelino MD [address] [place] [phone] PCP - General Family Medicine 04/20/24 Francia Hammonds MD [facility] 3L [place] [address] Die Maker Apprentice Nephrology 11/24/24 Andre Mccann MD [address] [place] [phone] Hematology and Oncology 11/24/24 Ana Andersen MD [address] [place] [address] Hematology and Oncology 11/24/24 [place] [address] [place] [address] Category Director/Oncologist Hematology and Oncology 11/24/24 Joan [place] MD [facility]5 [place] [address] Category Director/Oncologist Hematology and Oncology 11/24/24 Lyudmila Bangura MD [address] [address] Physician Hematology and Oncology 11/24/24 Gloria Alatorre MD [address] [place] [phone] Physician Hematology and Oncology 11/24/24 Mony Zaldivar, PharmD 11/24/24 Shirley Barahona, GodwinD Pharmacist 11/24/24 Mili, Anastacia M., RN Registered Nurse 11/24/24 Tabatha oSlorzano 11/24/24 Ness Ortiz 11/24/24 Grisel Dobbins, INDRA-POP [facility] [place] [address] Nurse Practitioner Nurse Practitioner 11/24/24 Nannette Joshi, KIMO Registered Nurse 11/24/24 Sylwia Lovelace, [facility] [address] [place] [address] Legal Administrative Secretary 11/24/24 documented as of this encounter
--- OUTSIDE RECORDS SUMMARY | 2024-12-13 17:21 | XMS_ITS | Encounter Summary ---
Author Organization [facility] Address [address] [facility] [place] [address] Care Team Providers Care Accounts Specialist Name Role Phone Saul Marcelino MD Primary Care Provider [phone] None, Physician Primary Care Provider Unavailabl e Saul Marcelino MD Primary Care Provider [phone] Francia Hammonds MD Unavailable [phone] Andre Mccann MD Unavailable [phone] Ana Andersen MD Unavailable [phone] Vincent Sandra MD Unavailable Joan Wood MD Unavailable Lyudmila Bangura MD Unavailable Gloria Alatorre MD Unavailable Mony Zaldivar PharmD Unavailable Unavaila Shirley Barillas PharmD Unavailable Unavailable Anastacia Garces RN Unavailable Unavailable Tabatha Solorzano Unavailable Unavailable Ness Ortiz Unavailable Sarah Grisel Singh DRILLING MACHINE RUNNER-PLAYER DEVELOPMENT MANAGER Unavailable [phone] Nannette Joshi RN Unavailable Unavailable Sylwia Lovelace DUMP MOTORMAN Unavailable Unavailab le Reason for Visit * Reason Onset Date Comments Hospital Follow-up 11/25/2023 Encounter Details Date Type Department Care Team (Late st Contact Info) Description 11/25/2023 Telephone [facility] - Cardiology [address] [facility], [facility] [address] [place] [address] Andrés Kaye MD [address] [facility] [address] [place] [address] Hospital Follow-up Social History Tobacco Use Types Packs/Day Years Used Date Smoking Tobacco: Every Day Cigarettes 0.2 60.7 Started: 1963 Smokeless Tobacco: Never Comments:Pack of [...] on file Legal Sex 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 FRUIT PRESS OPERATOR Gender Identity Not on file Sexual [...] 3:12 PM CDT Bella Armstrong RN documented in this encounter Miscellaneous Notes * Telephone Encounter - Tanja Cantrell - 11/25/2023 12:59 PM CDT Reason for call: Patient was recently hospitalized 11/11-11/20,while in the hospital she experienced chest pains and was advised to f.u with her scheduler prior to being discharged Patient Call Back number: [phone] documented in this encounter Plan of Treatment Upcoming Encounters Date Type Department Care Team (Late st Contact Info) Description 01/04/2025 11:00 AM CDT Ancillary Procedure [facility] - Echosonography [address] [facility], [address] [place] [address] 01/05/2025 8:30 AM CDT [facility] [address] [facility], [place] [address] Francia Hammonds MD [address] [facility] 3L [place] [address] 02/06/2025 2:00 PM FRUIT PRESS OPERATOR Appointment [facility] CAT SCAN [address] [place] [address] Beau Myrick MD [address] [facility] 2L DIV OF PULMONARY/[place] [address] 03/16/2025 2:00 PM FRUIT PRESS OPERATOR Office Visit [facility] - Neurology [address] [place] [address] [place] [address] Gary Virgen APRN-PLAYER DEVELOPMENT MANAGER [address] [address] 03/21/2025 11:00 AM FRUIT PRESS OPERATOR Office Visit [facility] - Sleep Services [address] [facility] [address] [place] [address] Maura Simmons APNP-PLAYER DEVELOPMENT MANAGER [address] [facility] [address] [place] [address] 06/07/2025 11:00 AM FRUIT PRESS OPERATOR Office Visit [facility] - Cardiology [address] [facility], [address] [place] [address] Andrés Kaye MD [address] [facility] [address] [place] [address] 09/13/2025 1:45 PM CDT Appointment [facility] CANCER CARE DRAWSTATION [address] [facility], 2nd [place] [address] 09/13/2025 2:00 PM CDT Office Visit [facility] - Hematology/Oncology [address] [place] [address] uAbree Thomas MD [address] [place] [address] documented as of this encounter Goals Goal Patient Goal Type Associated Problems Recent Progress Patient-Stated? Author Medication Management General On track( 025 2:47 PM CDT) No Radha Bellamy, RN Note: Expected end date: Ongoing Interventions: Take all medications as prescribed Let your doctor know right away about any changes in your medications Make sure to request a refill of your medication at least one week prior to your last dose documented as of this encounter Visit Diagnoses Not on filedocumented in this encounter Care Teams Accounts Specialist Relationship Specialty Start Date End Date Saul Marcelino MD [address] [place] [address] PCP - General Family Medicine 09/17/22 02/09/24 None, Physician [address] [place] [address] PCP - General 02/10/24 04/19/24 Saul Marcelino MD [address] [place] [address] PCP - General Family Medicine 04/20/24 Francia Hammonds MD [address] [place] [address] [place] [address] Statistics Intern Nephrology 11/24/24 Andre Mccann MD [address] [place] [address] Hematology and Oncology 11/24/24 Ana Andersen MD [address] [place] [address] Hematology and Oncology 11/24/24 Vincent Sandra MD [address] [place] [address] Adult Basic Education Teacher/Oncologist Hematology and Oncology 11/24/24 Joan Wood MD [address] [place] [address] Adult Basic Education Teacher/Oncologist Hematology and Oncology 11/24/24 Lyudmila Bangura MD [address] [address] Physician Hematology and Oncology 11/24/24 Gloria Alatorre MD [address] [place] [address] Physician Hematology and Oncology 11/24/24 Mony Zaldivar, PharmD 11/24/24 Shirley Barahona, PharmD Pharmacist 11/24/24 Anastacia Garces, RN Registered Nurse 11/24/24 Tabatha Solorzano 11/24/24 Ness Ortiz 11/24/24 Grisel Dobbins, DRILLING MACHINE RUNNER-PLAYER DEVELOPMENT MANAGER [address] [place] [address] Nurse Practitioner Nurse Practitioner 11/24/24 Nannette Joshi, RN Registered Nurse 11/24/24 Sylwia Lovelace, DUMP MOTORMAN [address] [place] [address] Mica Miner 11/24/24 documented as of this encounter
--- OUTSIDE RECORDS SUMMARY | 2024-12-13 17:21 | XMS_ITS | Encounter Summary ---
Author Organization [facility] Address [facility] [place] [address] Care Team Providers Care Labor Relations Officer Name Role Phone Saul Marcelino MD Primary Care Provider [phone] Francia Hammonds MD Unavailable [phone] Andre Mccann MD Unavailable [phone] Ana Andersen MD Unavailable [phone] Vincent Sandra MD Unavailable Joan Wood MD Unavailable Lyudmila Bangura MD Unavailable Gloria Alatorre MD Unavailable Mony Zaldivar PharmD Unavailable Unavaila ble Shirley Barahona PharmD Unavailable Unavailable Anastacia Garces RN Unavailable Unavailable Tabatha Solorzano Unavailable Unavailable Ness Ortiz Unavailable Sarah Grisel Singh PTA-E LEARNING SPECIALIST Unavailable [phone] Nannette Joshi RN Unavailable Unavailable Sylwia Lovelace LCSW Unavailable Unavailab le Reason for Visit * Reason Onset Date Comments MEDICATION REFILL 10/04/2024 Encounter Details Date Type Department Care Team (Late st Contact Info) Description 10/04/2024 Refill [facility] - Pulmonology [address] 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 Answer Entry Date Author No 10/05/2023 3:12 PM CDT Bella Armstrong RN documented in this encounter Plan of Treatment Upcoming Encounters Date Type Department Care Team (Late st Contact Info) Description 01/04/2025 11:00 AM CDT Ancillary Procedure [facility] - Echosonography [address] [facility], [address] [place] [address] 01/05/2025 8:30 AM CDT [facility] [address] [place] [address], [place] [address] Francia Hammonds MD 12[address] [facility] 3L [place] [address] 02/06/2025 2:00 PM CLIENT SUPPORT PROFESSIONAL Appointment [facility] CAT SCAN [address] [place] [address] Beau Myrick MD [address] [facility] 2L DIV OF PULMONARY/[place] [address] 03/16/2025 2:00 PM CLIENT SUPPORT PROFESSIONAL Office Visit [facility] - Neurology [address] [place] [address], [place] [address] Gary Virgen APRN-E LEARNING SPECIALIST [address] [facility] 1L [place] [address] 03/21/2025 11:00 AM CLIENT SUPPORT PROFESSIONAL Office Visit [facility] - Sleep Services [address] [facility] [address] [place] [address] Maura Simmons APNP-E LEARNING SPECIALIST [address] [facility] [address] [place] [address] 06/07/2025 11:00 AM CLIENT SUPPORT PROFESSIONAL Office Visit [facility] - Cardiology [address] [facility], Gene [address] [place] [address] Andrés Kaye MD [address] [facility] [address] [place] [address] 09/13/2025 1:45 PM CDT Appointment [facility] CANCER CARE DRAWSTATION 3655 [facility], 2nd [place] [address] 09/13/2025 2:00 PM CDT Office Visit [facility] Group - Hematology/Oncology [address] [place] [address] Aubree Thomas MD [address] [place] [address] documented as of this encounter Goals Goal [...] on filedocumented in this encounter Care Teams Labor Relations Officer Relationship Specialty Start Date End Date Saul Marcelino MD [address] [place] [address] PCP - General Family Medicine 04/20/24 Francia Hammonds MD [address] [facility] 3L [place] [address] [facility] 11/24/24 Andre Mccann MD [address] [place] [address] Hematology and Oncology 11/24/24 Ana Andersen MD [address] [place] [address] Hematology and Oncology 11/24/24 [place] [address] [place] [address] Author'S Agent/Oncologist Hematology and Oncology 11/24/24 [place] [address] [place] [address] Author'S Agent/Oncologist Hematology and Oncology 11/24/24 Lyudmila [place]ura MD [address] [address] Physician Hematology and Oncology 11/24/24 Gloria Alatorre MD [address] [place] [address] Physician Hematology and Oncology 11/24/24 Mony Zaldivar, PharmD 11/24/24 Shirley Barahona, PharmD Pharmacist 11/24/24 Anastacia Garces, RN Registered Nurse 11/24/24 Tabatha Solorzano 11/24/24 Ness Ortiz 11/24/24 Grisel Dobbins APRN-POP [address] [place] [address] Nurse Practitioner Nurse Practitioner 11/24/24 Nannette Joshi, RN Registered Nurse 11/24/24 Sylwia Lovelace, DIGITAL EDITOR [address] [place] [address] Circuit Board Inspector 11/24/24 documented as of this encounter
--- OUTSIDE RECORDS SUMMARY | 2024-12-13 17:21 | XMS_ITS | Encounter Summary ---
Author Organization [facility] Address [facility] [place] [address] Care Team Providers Care Collision Estimator Name Role Phone Saul Marcelino MD Primary Care Provider [phone] Francia Hammonds MD Unavailable [phone] Andre Mccann MD Unavailable [phone] Ana Andersen MD Unavailable [phone] Vincent Sandra MD Unavailable Joan Wood MD Unavailable Lyudmila [place]ura MD Unavailable Gloria Alatorre MD Unavailable Mony Zaldivar PharmD Unavailable Unavaila ble Shirley Barahona PharmD Unavailable Unavailable Anastacia Garces RN Unavailable Unavailable Tabatha Solorzano Unavailable Unavailable Ness Ortiz Unavailable Sarah Grisel Singh SOCIAL WORK SPECIALIST-ELECTRICAL REPAIRER Unavailable [phone] Nannette oJshi RN Unavailable Unavailable Sylwia Lovelace LCSW Unavailable Unavailab le Reason for Visit * Reason Onset Date Comments MEDICATION REFILL 10/04/2024 Encounter Details Date Type Department Care Team (Late st Contact Info) Description 10/04/2024 Refill [facility] - Pulmonology [address] [facility], [place] [address] Kunal Lennon MD [address] [address] MEDICATION REFILL Social History Tobacco Use Types [...] on file 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 Sex 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 STRATEGIC PLANNING ANALYST Gender Identity Not on file Sexual Orientation Not on file Occupation Industry Job Start Date Job End Date 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 [...] encounter Miscellaneous Notes * Telephone Encounter - Trixie Yoon RN - 10/04/2024 2:37 PM CDT Refill Request Eduarda Wall RADHA: 06/14/2024 NOV scheduled: 10/17/2024 LRF: 08/26/2024 Qty Disp: 99 ml # of refills: 3 Allergies: Allergies[1] Pended Medication Order: lbuterol (Proventil;Ventolin) (2.5 MG/3ML) 0.083% nebulizer solution Inhale 2.5 (two and one-half) mg by mouth every 6 hours as needed Dispense: 99 mL, Refills: 3 ordered [1] Allergies Allergen Reactions Cyclobenzaprine Other, Dizziness and Shortness of Breath Shock to legs funny feelings in legs and arms funny feelings in legs and arms Other reaction(s): Other (See Comments) Tetanus Toxoid Rash Written Tetanus Fluoxetine Nausea and/or Vomiting, Swelling and Unknown Adhesive Sensitivity Rash documented in this encounter Plan of Treatment Upcoming Encounters Date Type Department Care Team (Late st Contact Info) Description 01/04/2025 11:00 AM CDT Ancillary Procedure [facility] - Echosonography [address] [facility], [facility] [address] [place] [address] 01/05/2025 8:30 AM CDT Office Visit [facility] - Nephrology [address] [facility], [place] [address] Francia Hammonds MD 12[address] [facility] 3L [place] [address] 02/06/2025 2:00 PM STRATEGIC PLANNING ANALYST Appointment [facility] CAT SCAN [address] [place] [address] Beau Myrick MD [address] [facility] 2L DIV OF PULMONARY/[place] [address] 03/16/2025 2:00 PM STRATEGIC PLANNING ANALYST Office Visit [facility]ician Group - Neurology [address] [facility], [place] [address] Gary Virgen APRN-ELECTRICAL REPAIRER [address] [facility] 1L [place] [address] 03/21/2025 11:00 AM STRATEGIC PLANNING ANALYST Office Visit [facility]ician Group - Sleep Services [address] [address] Maura Simmons APNP-ELECTRICAL REPAIRER [address] [address] 06/07/2025 11:00 AM STRATEGIC PLANNING ANALYST Office Visit [facility]ician Group - Cardiology [address] [place] [address] Andrés Kaye MD 1034 [facility] [address] [place] [address] 09/13/2025 1:45 PM CDT Appointment [facility] CANCER CARE DRAWSTATION 3655 [facility], 2nd [place] [address] 09/13/2025 2:00 PM CDT Office Visit [facility]ician Group - Hematology/Oncology [address] [place] [address] Aubree Thomas MD [address] [place] [address] documented as of this encounter Goals Goal [...] 025 2:48 PM CDT) No Rebecca De Jesus RN Note: Expected [...] asthma documented in this encounter Care Teams Collision Estimator Relationship Specialty Start Date End Date Saul Marcelino MD [address] [place] [phone] PCP - General Family Medicine 04/20/24 Francia Hammonds MD [address] [place] [address] 3 [place] [address] Inspector Metal Can Nephrology 11/24/24 Andre Mccann MD [address] [place] [address] Hematology and Oncology 11/24/24 Ana Andersen MD [address] [place] [address] Hematology and Oncology 11/24/24 Vinecnt Sandra MD [address] [place] [address] Medical Records Technician/Oncologist Hematology and Oncology 11/24/24 Joan Wood MD [address] [place] [address] Medical Records Technician/Oncologist Hematology and Oncology 11/24/24 Lyudmila [place]ura MD [address] [address] Physician Hematology and Oncology 11/24/24 Gloria Alatorre MD [address] [place] [address] Physician Hematology and Oncology 11/24/24 Mony Zaldivar, PharmD 11/24/24 Shirley Barahona, PharmD Pharmacist 11/24/24 Anastacia Garces, RN Registered Nurse 11/24/24 Tabatha Solorzano 11/24/24 Ness Ortiz 11/24/24 Grisel Dobbins, INDRA-ELECTRICAL REPAIRER [address] [place] [address] Nurse Practitioner Nurse Practitioner 11/24/24 Nannette Joshi, RN Registered Nurse 11/24/24 Sylwia Lovelace LCSW [address] [place] [address] Mixer Whipped Topping 11/24/24 documented as of this encounter
--- OUTSIDE RECORDS SUMMARY | 2024-12-13 17:21 | XMS_ITS ---
Author Organization [facility] Medical Office Building A Address [address] [place] [address] Care Team Providers Care Dairy Farmworker Name Role Phone Saul Marcelino MD Primary Care Provider [phone] Active Problems Problem Noted Date Diagnosed Date Renal disorder 12/08/2023 Overview (12/08/2023): Kidney failure Generalized anxiety disorder with panic attacks 05/14/2023 Leg cramps 05/14/2023 BERTA (obstructive sleep apnea) 05/14/2023 PND (paroxysmal nocturnal dyspnea) 05/14/2023 Restless legs syndrome (RLS) 05/14/2023 Stage 3b chronic kidney disease 05/14/2023 Cystic disease of liver 09/18/2022 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
--- OUTSIDE RECORDS SUMMARY | 2024-12-13 17:21 | XMS_ITS | Encounter Summary ---
Author Organization [facility] Address [facility] [place] [address] Care Team Providers Care Supervisor Electron Tube Processing Name Role Phone Saul Marcelino MD Primary Care Provider [phone] Francia Hammonds MD Unavailable [phone] Andre Mccann MD Unavailable [phone] Ana Andersen MD Unavailable [phone] Vincent Sandra MD Unavailable [phone] Joan Wood MD Unavailable Lyudmila Bangura MD Unavailable Gloria Alatorre MD Unavailable Mony Zaldivar PharmD Unavailable Unavaila ble Shirley Barahona PharmD Unavailable Unavailable Anastacia Garces RN Unavailable Unavailable Tabatha Solorzano Unavailable Unavailable Ness Ortiz Unavailable Sarah Grisel Singh OFFSET PRESS OPERATOR APPRENTICE-INSPECTOR TIMERS Unavailable [phone] Nannette Joshi RN Unavailable Unavailable Sylwia Lovelace LCSW Unavailable Unavailab le Reason for Visit * Reason Onset Date Comments Med Question 10/04/2024 Encounter Details Date Type Department Care Team (Late st Contact Info) Description 10/04/2024 Telephone [facility] - Pulmonology [address] [place] [address], [place] [phone] Kunal Lennon MD [address] [place] [address] Med Question Social History Tobacco Use Types Packs/Day Years [...] on file Legal Sex 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 PRINTED CIRCUIT PHOTOGRAPHER Gender Identity Not on file Sexual Orientation [...] Telephone Encounter - Trixie Yoon RN - 10/05/2024 10:53 AM CDT Telephoned patient, no answer. Left vm. Will review requirements needed to submit. * Telephone Encounter - Trixie Yoon RN - 10/04/2024 2:48 PM CDT Patient states she needs a new nebulizer machine. DME order needed. Has had current machine 4 years. Note sent to provider and social work. documented in this encounter Plan of Treatment Upcoming Encounters Date Type Department Care Team (Late st Contact Info) Description 01/04/2025 11:00 AM CDT Ancillary Procedure [facility] - Echosonography 10[address] [facility] 1120 [place] [address] 01/05/2025 8:30 AM CDT Office Visit [facility] - Nephrology 1225 [facility], [place] [address] Francia Hammonds MD 1225 [facility] 3L Div [place] [address] 02/06/2025 2:00 PM PRINTED CIRCUIT PHOTOGRAPHER Appointment [facility] CAT SCAN 1201 [place] [address] Beau Myrick MD 1225 [facility] 2L DIV OF PULMONARY/[place] [address] 03/16/2025 2:00 PM PRINTED CIRCUIT PHOTOGRAPHER Office Visit [facility] - Neurology 1225 [facility], [place] [address] Gary Virgen APRN-INSPECTOR TIMERS [address] [place] [phone] 03/21/2025 11:00 AM PRINTED CIRCUIT PHOTOGRAPHER Office Visit [facility] - Sleep Services [address] [facility] Gene 550 [place] [address] Maura Simmons APNP-INSPECTOR TIMERS [address] [facility] [address] 550 [place] [address] 06/07/2025 11:00 AM PRINTED CIRCUIT PHOTOGRAPHER Office Visit [facility] - Cardiology [address] [facility], [facility] 1120 [place] [phone] Andrés Kaye MD 1034 [facility] [address] [place] [address] 09/13/2025 1:45 PM CDT Appointment [facility] CANCER CARE DRAWSTATION 3655 [facility], 2nd [place] [address] 09/13/2025 2:00 PM CDT Office Visit [facility] - Hematology/Oncology 3655 [place] [phone] Aubree Thomas MD 3655 [place] [address] documented as of this encounter Goals Goal [...] General On track( 025 2:48 PM CDT) Rebecca Strong, RN Note: Expected end date: ongoing Interventions: [...] on filedocumented in this encounter Care Teams Supervisor Electron Tube Processing Relationship Specialty Start Date End Date Saul Marcelino MD [address] [place] [phone] PCP - General Family Medicine 04/20/24 Francia Hammonds MD [address] [place] [address] 3 [place] [address] Hardware Developer Nephrology 11/24/24 Andre Mccann MD [address] [place] [phone] Hematology and Oncology 11/24/24 Ana Andersen MD [address] [place] [address] Hematology and Oncology 11/24/24 Vincent Sandra MD [address] [place] [address] Physical Testing Supervisor/Oncologist Hematology and Oncology 11/24/24 Joan Wood MD [address] [place] [address] Physical Testing Supervisor/Oncologist Hematology and Oncology 11/24/24 Lyudmila Bangura MD 3665 [facility] 3 [place] [address] Physician Hematology and Oncology 11/24/24 Gloria Alatorre MD 365 [place] [phone] Physician Hematology and Oncology 11/24/24 Mony Zaldivar, PharmD 11/24/24 Shirley Barahona, PharmD Pharmacist 11/24/24 Anastacia Garces RN Registered Nurse 11/24/24 Tabatha Solorzano 11/24/24 Ness Ortiz 11/24/24 Grisel Dobbins APRN-INSPECTOR TIMERS [address] [place] [phone] Nurse Practitioner Nurse Practitioner 11/24/24 Nannette Joshi, RN Registered Nurse 11/24/24 Sylwia Lovelace, AUTO CLUTCH SPECIALIST 3651 [place] [address] Capacitor Inspector 11/24/24 documented as of this encounter
--- OUTSIDE RECORDS SUMMARY | 2024-12-13 17:21 | XMS_ITS | Clinical Summary ---
Author Organization [facility] Medical Office Building A Address [address] [place] [address] Care Team Providers Care Rim Roller Setter Name Role Phone Saul Marcelino MD Primary Care Provider [phone] Allergies Active Allergy Reactions Criticality Noted Date [...] Active Additional Information Patient not taking.Reported on 08/17/2024 cholecalciferol (VITAMIN D-3) 25 mcg (1,000 unit) [...] artery disease of n ative artery of [place] heart with stable angina pectoris 09/17/2022 Nontoxic [...] 03/15/2020 Assessment & Plan (04/26/2020 3:09 PM LACQUER SIZER): Controlled with medication including Lasix CKD - continue medication per PCP Assessment & Plan (03/15/2020 3:58 PM LACQUER SIZER): Controlled with medication including Lasix CKD - continue medication per PCP Mixed hyperlipidemia 03/15/2020 Hypercalcemia 03/15/2020 Assessment & Plan (04/26/2020 3:09 PM LACQUER SIZER): Detected on labs on 03/09/20 Calcium of [...] functions Assessment & Plan (03/15/2020 3:57 PM LACQUER SIZER): Detected on recent labs on 03/09/20 Calcium [...] Date Smoking Tobacco: Every Day Cigarettes 1 60.7 Started: 1963 Smokeless Tobacco: Never Tobacco Cessation:Ready [...] on file Legal Sex Female 12:19 AM LACQUER SIZER Gender Identity Not on file Sexual Orientation Not on file Obstetrics History Last Filed Vital Signs Vital Sign Reading Time Taken Comments Blood Pressure 154/69 08/17/2024 1:10 PM CDT Pulse 78 08/17/2024 1:10 PM CDT Temperature 36.5 C (97.7 F) 11/29/2020 12:34 PM CDT Respiratory Rate 14 11/29/2020 12:34 PM CDT Oxygen Saturation 97% 11/29/2020 12:34 PM CDT Inhaled Oxygen Concentration - - Weight 76.7 kg (169 lb) 08/17/2024 1:10 PM CDT Height 154.9 cm (5' 1) 08/17/2024 1:10 PM CDT Body Mass Index 31.93 08/17/2024 1:10 PM CDT Plan of Treatment Health Maintenance [...] Lung Cancer Screening 08/13/2023 08/12/2022 Covid-19 Vaccine (2024-05 6 season) 2024 10/30/2021, 04/04/2021, 09/23/2020, Additional history exists Influenza Vaccine (#1) 2024 , 04/18/2019, 01/28/2017, Additional history exists Pneumococcal vaccine [...] PM CDT MR Weber Mamm R Acc#: [id number] DATE OF EXAM: Oct 05 2012 Performed [...] - 08/07/2016 MR Weber Mamm R Acc#: [id number] DATE OF EXAM: Oct 05 2012 Performed [...] Most Recently Relevant to Health Maintenance Insurance [facility] MEDICARE MEDICARE IDPA Advance Directives For more information, please contact: [phone] * Full Code (Latest Code Status on File) Date Activated Date Inactivated Comments 11/28/2020 7:15 PM 11/29/2020 7:45 PM Care Teams Rim Roller Setter Relationship Specialty Start Date End Date Saul Marcelino MD [address] [place] [address] PCP - General Family Practice 08/10/24
--- OUTSIDE RECORDS SUMMARY | 2024-12-13 17:21 | XMS_ITS | Encounter Summary ---
Author Organization [facility] Address [address] [facility] [place] [address] Care Team Providers Care Quality Assurance Intern Name Role Phone Saul Marcelino MD Primary Care Provider [phone] None, Physician Primary Care Provider Unavailabl e Saul Marcelino MD Primary Care Provider [phone] Francia Hammonds MD Unavailable [phone] Andre Mccann MD Unavailable [phone] Ana Andersen MD Unavailable [phone] Vincent Sandra MD Unavailable Joan Wood MD Unavailable Lyudmila Bangura MD Unavailable Gloria Alatorre MD Unavailable Mony Zaldivar PharmD Unavailable Unavaila Shirley Barillas PharmD Unavailable Unavailable Anastacia Garces RN Unavailable Unavailable Tabatha Solorzano Unavailable Unavailable Ness Ortiz Unavailable Sarah Grisel Singh THERAPEUTIC DIETITIAN-SR. PAYROLL PROCESSOR Unavailable Nannette Joshi RN Unavailable Unavailable Sylwia Lovelace LCSW Unavailable Unavailab le Reason for Visit * Reason Onset Date Comments Update 08/17/2023 Encounter Details Date Type Department Care Team (Late st Contact Info) Description 08/17/2023 Telephone [facility] - Centralized Scheduling [address] [place] [phone] Ness Burton, AuD [address] [place] [address] Update Social History Tobacco Use Types Packs/Day [...] on file Legal Sex 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 STATUE MAKER Gender Identity Not on file Sexual Orientation [...] does not drink 08/17/2023 6:57 AM Arleen Dee, RN Q3: How often do you have six or more drinks on one occasion? Never 08/17/2023 6:57 AM Arleen Dee , RN * Audit-C Score Answer Date of Assessment Author 0 08/17/2023 6:57 AM Arleen Dee, RN * Is person deaf or have serious hearing difficulty? Answer Date of Assessment Author Yes 08/17/2023 9:15 AM Arleen Dee, RN * Is person blind or have serious difficulty seeing? Answer Date of Assessment Author No 08/17/2023 9:15 AM KUSUMT Arleen Romero RN * Does person have serious difficulty walking/climbing stairs? Answer Date of Assessment Author Yes 08/17/2023 9:15 AM CDT Arleen Romero RN * Does person have difficulty dressing/bathing? Answer Date of Assessment Author No 08/17/2023 9:15 AM KUSUMT Arleen Romero RN * Does person have difficulty doing [...] be here tomorrow at 3:30pm. Her phone: [phone] documented in this encounter Plan of Treatment Upcoming Encounters Date Type Department Care Team (Late st Contact Info) Description 01/04/2025 11:00 AM CDT Ancillary Procedure [facility] - Echosonography 10[address] [facility] 1120 [place] [address] 01/05/2025 8:30 AM CDT Office Visit [facility] - Nephrology 1225 [facility], [place] [address] Francia Hammonds MD 1225 [facility] 3L [place] [address] 02/06/2025 2:00 PM STATUE MAKER Appointment [facility] CAT SCAN 1201 [place] [address] Beau Myrick MD 1225 [facility] 2L DIV OF PULMONARY/[place] [address] 03/16/2025 2:00 PM STATUE MAKER Office Visit [facility] - Neurology 1225 [facility], [place] [address] Gary Virgen, THERAPEUTIC DIETITIAN-SR. PAYROLL PROCESSOR 1225 [facility] 1L [place] [address] 03/21/2025 11:00 AM STATUE MAKER Office Visit [facility] - Sleep Services 1034 [facility] 550 [place] [address] Maura Simmons APNP-SR. PAYROLL PROCESSOR 1034 [facility] 550 [place] [address] 06/07/2025 11:00 AM STATUE MAKER Office Visit [facility] - Cardiology 1034 [facility] [place] 1120 [place] [address] Andrés Kaye MD 1034 [facility] SUITE [facility]0 [place] [address] 09/13/2025 1:45 PM CDT Appointment [facility] CANCER CARE DRAWSTATION 3655 [facility], 2nd [place] [address] 09/13/2025 2:00 PM CDT Office Visit [facility] - Hematology/Oncology 3655 [place] [phone] Aubree Thomas MD 3655 [place] [address] documented as of this encounter Goals Goal Patient Goal Type Associated Problems Recent Progress Patient-Stated? Author Medication Management General On track( 025 2:47 PM CDT) Rdaha De La Fuente RN Note: Expected end date: Ongoing Interventions: Take all medications as prescribed Let your doctor know right away about any changes in your medications Make sure to request a refill of your medication at least one week prior to your last dose documented as of this encounter Visit Diagnoses Not on filedocumented in this encounter Care Teams Quality Assurance Intern Relationship Specialty Start Date End Date Saul Marcelino MD [address] [place] [address] PCP - General Family Medicine 09/17/22 02/09/24 None, Physician [facility]2 [place] [address] PCP - General 02/10/24 04/19/24 Saul Marcelino MD [address] [place] [address] PCP - General Family Medicine 04/20/24 Francia Hammonds MD [address] [place] [address] [place] [address] Dragline Operator Nephrology 11/24/24 Andre Mccann MD [address] [place] [phone] Hematology and Oncology 11/24/24 Ana Andersen MD [address] [place] [address] Hematology and Oncology 11/24/24 Vincent Sandra MD [address] [place] [address] Data Support Specialist/Oncologist Hematology and Oncology 11/24/24 Joan Wood MD [facility] [place] [address] Data Support Specialist/Oncologist Hematology and Oncology 11/24/24 Lyudmila Bangura MD 3665 [facility] 3 [place] [address] Physician Hematology and Oncology 11/24/24 Gloria Alatorre MD [address]5 [place] [address] Physician Hematology and Oncology 11/24/24 Mony Zaldivar, PharmD 11/24/24 Shirley Barahona, PharmD Pharmacist 11/24/24 Anastacia Garces RN Registered Nurse 11/24/24 Tabatha Solorzano 11/24/24 Ness Ortiz 11/24/24 Grisel Dobbins, THERAPEUTIC DIETITIAN-SR. PAYROLL PROCESSOR [address] [place] [address] Nurse Practitioner Nurse Practitioner 11/24/24 Nannette Joshi, RN Registered Nurse 11/24/24 Sylwia Lovelace LCSW 3655 [place] [address] Director Regulatory Compliance 11/24/24 documented as of this encounter
--- OUTSIDE RECORDS SUMMARY | 2024-12-13 17:22 | XMS_ITS | Encounter Summary ---
Author Organization [facility] Address [address]3 [facility] [place] [address] Care Team Providers Care Manufacturing Technology Analyst Name Role Phone Saul Marcelino MD Primary Care Provider [phone] None, Physician Primary Care Provider Unavailabl e Saul Marcelino MD Primary Care Provider [phone] Francia Hammonds MD Unavailable [phone] Andre Mccann MD Unavailable [phone] Ana Andersen MD Unavailable [phone] Vincent Sandra MD Unavailable [phone] Joan Wood MD Unavailable Lyudmila Bangura MD Unavailable Gloria Alatorre MD Unavailable Mony Zaldivar PharmD Unavailable Unavaila Shirley Barillas PharmD Unavailable Unavailable Anastacia Garces RN Unavailable Unavailable Tabatha Solorzano Unavailable Unavailable Ness Ortiz Unavailable Sarah Grisel Singh TEAR DOWN MATCHER-CERTIFIED CONTROL SYSTEMS TECHNICIAN Unavailable [phone] Nannette Joshi RN Unavailable Unavailable Sylwia LovelaceW Unavailable Unavailab le Encounter Details Date Type Department Care Team (Late st Contact Info) Description 07/22/2023 Telephone [facility] - Neurology [facility]5 [facility], [facility] [address] Taylor Perry MD Social History Tobacco Use Types Packs/Day Years Used Date Smoking Tobacco: Former Cigarettes 0.2 60.7 S tarted: 1964 Smokeless Tobacco: Never Comments:Pack [...] on file Legal Sex 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 HEALTH EVALUATOR Gender Identity Not on file Sexual Orientation [...] Entry Date Author Yes 06/08/2023 11:20 AM HEALTH EVALUATOR Declue, Michelle A, RN documented in this encounter Miscellaneous Notes * Telephone Encounter - [place] - 07/22/2023 3:30 PM CDT Pt is calling in today because she had a CT scan w contrast on her chest and trying to find out theresults. Callback number is [phone] documented in this encounter Plan of Treatment Upcoming Encounters Date Type Department Care Team (Late st Contact Info) Description 01/04/2025 11:00 AM CDT Ancillary Procedure [facility] [address] [facility] 1120 [place] [address] 01/05/2025 8:30 AM CDT Office Visit [facility] - Nephrology [address] [place] [address], [place] [phone] Francia Hammonds MD 1225 [facility] 3L [place] [address] 02/06/2025 2:00 PM HEALTH EVALUATOR Appointment [facility] CAT SCAN 1201 [place] [address] Beau Myrick MD [address] [place] [address] 2L DIV OF PULMONARY/[place] [address] 03/16/2025 2:00 PM HEALTH EVALUATOR [facility] [address] [place] [address], [place] [phone] Gary Virgen APRN-CERTIFIED CONTROL SYSTEMS TECHNICIAN [address] [place] [address] 1L [place] [address] 03/21/2025 11:00 AM HEALTH EVALUATOR [facility] 10[address] [facility] 550 [place] [address] Maura Simmons APNP-CERTIFIED CONTROL SYSTEMS TECHNICIAN 10[address] [facility] [address] [place] [address] 06/07/2025 11:00 AM HEALTH EVALUATOR Office Visit [facility] - Cardiology [address] [facility] [place] [address]120 [place] [address] Andrés Kaye MD 1034 S [facility] [address] [place] [address] 09/13/2025 1:45 PM CDT Appointment [facility] CANCER CARE DRAWSTATION 3655 [facility], 2nd [place] [address] 09/13/2025 2:00 PM CDT Office Visit [facility] - Hematology/Oncology 3655 [place] [phone] Aubree Thomas MD [address]5 [place] [phone] documented as of this encounter Goals Goal [...] on filedocumented in this encounter Care Teams Manufacturing Technology Analyst Relationship Specialty Start Date End Date Saul Marcelino MD [address] [place] [address] PCP - General Family Medicine 09/17/22 02/09/24 None, Physician 1212 [place] [address] PCP - General 02/10/24 04/19/24 Saul Marcelino MD [address] [place] [phone] PCP - General Family Medicine 04/20/24 Francia Hammonds MD [address] [place] [address] 3L [place] [address] Fibre Technologist Nephrology 11/24/24 Andre Mccann MD [address] [place] [phone] Hematology and Oncology 11/24/24 Ana Andersen MD [address] [place] [address] Hematology and Oncology 11/24/24 Vincent Sandra MD [address] [place] [address] Bolt Threader/Oncologist Hematology and Oncology 11/24/24 Joan Wood MD [address] [place] [address] Bolt Threader/Oncologist Hematology and Oncology 11/24/24 Lyudmila Bangura MD [address] [address] Physician Hematology and Oncology 11/24/24 Gloria Alatorre MD [address] [place] [phone] Physician Hematology and Oncology 11/24/24 Mony Zaldivar, PharmD 11/24/24 Shirley Barahona, GodwinD Pharmacist 11/24/24 Anastacia Garces, RN Registered Nurse 11/24/24 Tabatha Solorzano 11/24/24 Ness Ortiz 11/24/24 Grisel Dobbins, INDRA-POP [address] [place] [address] Nurse Practitioner Nurse Practitioner 11/24/24 Nannette Joshi, KIMO Registered Nurse 11/24/24 Sylwia Lovelace, BUNDLE SHAKER 7[address] [place] [address] Egg Trayer 11/24/24 documented as of this encounter
--- OUTSIDE RECORDS SUMMARY | 2024-12-13 17:22 | XMS_ITS | Encounter Summary ---
Author Organization [facility] Address [facility] [place] [address] Care Team Providers Care Banquet Houseperson Name Role Phone Saul Marcelino MD Primary Care Provider [phone] Francia Hammonds MD Unavailable [phone] Andre Mccann MD Unavailable [phone] Ana Andersen MD Unavailable [phone] Vincent Sandra MD Unavailable Joan Wood MD Unavailable Lyudmila Bangura MD Unavailable Gloria Alatorre MD Unavailable Mony Zaldivar PharmD Unavailable Unavaila ble Shirley Barahona PharmD Unavailable Unavailable Anastacia Garces RN Unavailable Unavailable Tabatha Solorzano Unavailable Unavailable Ness Ortiz Unavailable Sarah Grisel Singh CORPORATE RECEPTIONIST-WINDOWS ADMIN Unavailable [phone] Nannette Joshi RN Unavailable Unavailable Sylwia Lovelace LCSW Unavailable Unavailab le Reason for Visit * Reason Onset Date Comments Order 04/26/2024 Encounter Details Date Type Department Care Team (Late st Contact Info) Description 04/26/2024 Telephone [facility] - Sleep Services [address] [place] [address] Maura Simmons, APELISSA-WINDOWS ADMIN [address] [place] [address] Order Social History Tobacco Use Types Packs/Day Years Used Date Smoking Tobacco: Every Day Cigarettes 0.5 60.7 Started: 1963 Smokeless Tobacco: Never Comments:Pack [...] on file Legal Sex 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 PRODUCT MARKETING CONSULTANT Gender Identity Not on file Sexual Orientation [...] for her CPAP Patient Call Back number: [phone] UCT MARKETING CONSULTANT documented in this encounter Plan of Treatment Upcoming Encounters Date Type Department Care Team (Late st Contact Info) Description 01/04/2025 11:00 AM CDT Ancillary Procedure [facility] - Echosonography [address] [facility] [address] [place] [address] 01/05/2025 8:30 AM CDT Office Visit [facility] - Nephrology [address] [place] [address], [place] [address] Francia Hammonds MD [address] [place] [address] 3L [place] [address] 02/06/2025 2:00 PM PRODUCT MARKETING CONSULTANT Appointment [facility] [address] [place] [address] Beau Myrick MD [address] [place] [address] 2L DIV OF PULMONARY/[place] [address] 03/16/2025 2:00 PM PRODUCT MARKETING CONSULTANT Office Visit [facility] - Neurology [address] [place] [address], [place] [address] Gary Virgen, CORPORATE RECEPTIONIST-WINDOWS ADMIN [address] [place] [address] 1L [place] [address] 03/21/2025 11:00 AM PRODUCT MARKETING CONSULTANT Office Visit [facility] - Sleep Services [address] [facility] [address] [place] [address] Maura Simmons APNP-WINDOWS ADMIN [address] [facility] [address] [place] [address] 06/07/2025 11:00 AM PRODUCT MARKETING CONSULTANT Office Visit [facility] - Cardiology [address] [facility] [place] [address] Andrés Kaye MD [address] [facility] [address] [place] [address] 09/13/2025 1:45 PM CDT Appointment [facility] [address] [facility] 2nd [place] [address] 09/13/2025 2:00 PM CDT Office Visit [facility] - Hematology/Oncology [address] [place] [phone] Aubree Thomas MD [address] [place] [address] documented as of this encounter Goals Goal [...] on filedocumented in this encounter Care Teams Banquet Houseperson Relationship Specialty Start Date End Date Saul Marcelino MD [address] [place] [phone] PCP - General Family Medicine 04/20/24 Francia Hammonds MD [address] [facility] 3L [place] [address] Form Builder Nephrology 11/24/24 Andre Mccann MD [address] [place] [phone] Hematology and Oncology 11/24/24 Ana Andersen MD [address] [place] [address] Hematology and Oncology 11/24/24 Vincent Sandra MD [address] [place] [address] Front End Ui Developer/Oncologist Hematology and Oncology 11/24/24 Joan Wood MD [address] [place] [address] Front End Ui Developer/Oncologist Hematology and Oncology 11/24/24 Lyudmila Bangura MD [address] [address] Physician Hematology and Oncology 11/24/24 Gloria Alatorre MD [address] [place] [address] Physician Hematology and Oncology 11/24/24 Mony Zaldivar, PharmD 11/24/24 Shirley Barahona, PharmD Pharmacist 11/24/24 Anastacia Garces, RN Registered Nurse 11/24/24 Tabatha Solorzano 11/24/24 Ness Ortiz 11/24/24 Grisel Dobbins, CORPORATE RECEPTIONIST-WINDOWS ADMIN [address] [place] [address] Nurse Practitioner Nurse Practitioner 11/24/24 Nannette Joshi, RN Registered Nurse 11/24/24 Sylwia Lovelace, SEAN [address] [place] [address] Non Destructive Evaluation Technician 11/24/24 documented as of this encounter
--- OUTSIDE RECORDS SUMMARY | 2024-12-13 17:22 | XMS_ITS | Patient Health Record ---
Author Organization [facility] [employer] Address [address] [place] [address] Care Team Providers Care Radiology Receptionist Name Role Phone Saul Marcelino MD Primary Care Provider Daniele Olsen Unavailable [phone] Allergies Allergen (clinical drug ingredient) Drug/Non Drug [...] Duration) Notes Start Date End Date Status Loratadine 10 MG Tablet Oral 07/31/2023 Active Albuterol Sulfate 1.25 MG/3ML Nebulization Solution Inhalation 07/31/2023 Active buPROPion HCl ER (SR) 150 MG Tablet Extended Release 12 Hour 1 tablet Orally twice a day; Duration: 30 days take in the morning and afternoon 06/23/2024 Active HYDROcodone-Acetaminoph en 10-325 MG Tablet Oral 07/31/2023 Active Sertraline HCl 100 MG Tablet 1.5 tablet Oral Once a day; Duration: 90 days Active Ingrezza 80 MG Capsule 1 capsule Orally Once a day; Duration: 30 days Active traZODone HCl 100 MG Tablet 1 tablet at bedtime Oral Once a day; Duration: 90 days As needed Active Carvedilol 25 MG Tablet Oral 07/31/2023 Active Trelegy Ellipta 100-62.5-25 mcg Aerosol Powder Breath Activated Inhalation *Pick strength-form from [facility] for eRX* 07/31/2023 Active rOPINIRole HCl 0.25 MG Tablet Oral; Duration: 90 Days Active Doxazosin Mesylate 4 MG Tablet Oral 07/31/2023 Active Varenicline Tartrate(Continue) 1 MG Tablet Oral *Reorder from [facility] for eRx and Interaction Alerts* 07/31/2023 Active Ondansetron HCl 4 MG Tablet Oral 07/31/2023 Active CHOLECALCIFEROL (VITAMIN D3) 25 MCG (1,000 UNIT) CAPSULE *Reorder from [facility] for eRx and Interaction Alerts* 07/31/2023 Active Naproxen 500 MG Tablet Oral 07/31/2023 Active HYDROcodone-Acetaminoph en 5-325 MG Tablet Oral 07/31/2023 Active Aspirin 81 MG Capsule Oral *Pick strength-form from [facility] for eRX* 07/31/2023 Active amLODIPine Besylate 10 MG Tablet Oral 07/31/2023 Active ProAir HFA 108 (90 Base) MCG/ACT Aerosol Solution Inhalation 07/31/2023 Active Meclizine HCl 25 MG Tablet Oral 07/31/2023 Active Amantadine HCl 100 MG Capsule Oral 07/31/2023 Active Levalbuterol HCl 1.25 MG/3ML Nebulization Solution Inhalation 07/31/2023 Active Valsartan 160 MG Tablet Oral 07/31/2023 Active Immunizations Vaccine Route Administration Date Status [...] Date Details (start date - stop date) Former Smoker NA - NA Sex Assigned At : Social History Observation Description Sex Assigned At Female Social History Miscellaneous: Social Info Question Answer Notes Advance Care Planning Advance Directive Do Not Intubat e Tobacco Use: Social Info Question Answer Notes Tobacco Control (Standard) Tobacco use: Former smoker How often do you smoke cigarettes? Every day How many cigarettes a day do you smoke? 6-10 How soon after you wake up do you smoke your first cigarette? 6-30 minutes Are you interested in quitting? Ready to quit How long has it been since you last smoked? 1-3 months Additional Details Category Social Info Options Details Migrated Social History Migrated Social History Alcohol Intake: None 11/13/2021,Tobacco Years: Current every day smoker 09/23/2022,Smoking Status: 51 03/25/2023 Problems Problem Type SNOMED Code ICD Code Onset Dates Problem Status W/U Status Risk Notes Problem Tobacco user (001644276) Nicotine dependence, cigarettes, uncomplicated (F17.210) 4 Active confirmed Problem Mild recurrent major depression (72025762) Major depressive disorder, recurrent, mild (F33.0) 4 Active confirmed Problem Drug-induced tardive dystonia (246798211) Drug induced subacute dyskinesia (G24.01) 4 Active confirmed Problem Insomnia (764914498) Other insomnia (G47.09) 4 Active confirmed Problem Chronic obstructive pulmonary disease (50057763) Chronic obstructive pulmonary disease, unspecified (J44.9) 4 Active confirmed Problem Chronic kidney disease stage 3 (disorder) (953330471) Chronic kidney disease, stage 3 unspecified (N18.30) 4 Active confirmed Vital Signs Heart Rate 49 /min 10/19/2024 Blood pressure diastolic 72 mm Hg 10/19/2024 Height-cm 154.94 cm 10/19/2024 Weight-kg 76.2 kg 10/19/2024 Height 61.00 in 10/19/2024 Blood pressure systolic 158 mm Hg 10/19/2024 Weight 168 lbs 10/19/2024 BMI 31.74 kg/m2 10/19/2024 Encounters [facility]counter [facility] Date [facility] [address] [address] 02/09/2024 Daniele Vasquez Chronic kidney disea se, stage 3 unspecified N18.30 ; Major depressive disorder, recurrent, mild F33.0 ; Nicotine dependence, cigarettes, uncomplicated F17.210 ; Chronic obstructive pulmonary disease, unspecified J44.9 ; Other insomnia G47.09 and Drug induced subacute dyskinesia G24.01 [facility] [employer] [place] [address] [place] [address] 03/09/2024 Daniele Vasquez Chronic kidney disea se, stage 3 unspecified N18.30 ; Major depressive disorder, recurrent, mild F33.0 ; Nicotine dependence, cigarettes, uncomplicated F17.210 ; Chronic obstructive pulmonary disease, unspecified J44.9 ; Other insomnia G47.09 and Drug induced subacute dyskinesia G24.01 [facility] [employer] [place] [address] [place] [address] 06/07/2024 Daniele Krishnaa [facility] [employer] [place] [address] [place] [address] 06/23/2024 Daniele Krishnaa Major depressive disorder, recurrent, mild F33.0 ; Drug induced subacute dyskinesia G24.01 ; Chronic kidney disease, stage 3 unspecified N18.30 ; Nicotine dependence, cigarettes, uncomplicated F17.210 ; Other insomnia G47.09 ; Encounter for screening for cardiovascular disorders Z13.6 ; Nicotine use Z72.0 ; Encounter for screening for depression Z13.31 and Chronic obstructive pulmonary disease, unspecified J44.9 [facility] [employer] [place] [address] [place] [address] 07/26/2024 Daniele Krishnaa Major depressive disorder, recurrent, mild F33.0 ; Other insomnia G47.09 ; Encounter for screening for cardiovascular disorders Z13.6 ; Nicotine use Z72.0 ; Encounter for screening for depression Z13.31 ; Drug induced subacute dyskinesia G24.01 ; Chronic kidney disease, stage 3 unspecified N18.30 ; Nicotine dependence, cigarettes, uncomplicated F17.210 and Chronic obstructive pulmonary disease, unspecified J44.9 [facility] [employer] [place] [address] [place] [address] 10/19/2024 Daniele Vasquez Major depressive disorder, recurrent, mild F33.0 ; Other insomnia G47.09 ; Nicotine use Z72.0 ; Drug induced subacute dyskinesia G24.01 ; Chronic kidney disease, stage 3 unspecified N18.30 ; Nicotine dependence, cigarettes, uncomplicated F17.210 and Chronic obstructive pulmonary disease, unspecified J44.9 [facility] [employer] [address] [address] 06/29/2024 Daniele Vasquez Assessments Encounter Date Diagnosis (ICD Code) Assessment Notes Treatment Notes Treatment Clinical Notes Section Notes 02/09/2024 Chronic kidney disease, stage 3 unspecified (ICD-10 - N18.30) followed by traffic assistant 1. Depression: - Patient reports stable depressive [...] kidney function and follow up with the traffic assistant as recommended. 6. Smoking cessation: - Patient [...] 3 unspecified (ICD-10 - N18.30) followed by traffic assistant 1. Tardive Dyskinesia: - Patient reports improvement [...] any necessary adjustments to the treatment plan. 07/26/2024 Major depressive disorder, recurrent, mild (ICD-10 - F33.0) 10/19/2024 Major depressive disorder, recurrent, mild (ICD-10 - F33.0) 10/19/2024 Other insomnia (ICD-10 - G47.09) 10/19/2024 Nicotine use (ICD-10 - Z72.0) 07/26/2024 Other insomnia (ICD-10 - G47.09) 06/23/2024 Drug induced subacute dyskinesia (ICD-10 - [...] kidney function and follow up with the traffic assistant as recommended. 6. Smoking cessation: - Patient reports quitting smoking for 2 days and using nicotine patches. Plan: - Congratulate the patient on their progress and encourage continued efforts to quit smoking. - Offer additional support and resources if needed. Follow-up: - Schedule a follow-up appointment in one month to assess the patient's overall progress and response to the changes in medication. 02/09/2024 Nicotine dependence, cigarettes, uncomplicated (ICD-10 - [...] kidney function and follow up with the traffic assistant as recommended. 6. Smoking cessation: - Patient [...] any necessary adjustments to the treatment plan. 07/26/2024 Encounter for screening for cardiovascular disorders (ICD-10 - Z13.6) 06/23/2024 Chronic kidney disease, stage 3 unspecified (ICD-10 - N18.30) followed by traffic assistant 10/19/2024 Drug induced subacute dyskinesia (ICD-10 - G24.01) 07/26/2024 Nicotine use (ICD-10 - Z72.0) 10/19/2024 Chronic kidney disease, stage 3 unspecified (ICD-10 - N18.30) followed by traffic assistant 06/23/2024 Nicotine dependence, cigarettes, uncomplicated (ICD-10 - [...] kidney function and follow up with the traffic assistant as recommended. 6. Smoking cessation: - Patient [...] kidney function and follow up with the traffic assistant as recommended. 6. Smoking cessation: - Patient [...] medication. 06/23/2024 Other insomnia (ICD-10 - G47.09) 07/26/2024 Encounter for screening for depression (ICD-10 - Z13.31) 10/19/2024 Nicotine dependence, cigarettes, uncomplicated (ICD-10 - F17.210) has tried chantix in the past- states it makes her smoke more, Bupropion- makes dizzy 10/19/2024 Chronic obstructive pulmonary disease, unspecified (ICD-10 - J44.9) 07/26/2024 Drug induced subacute dyskinesia (ICD-10 - G24.01) 06/23/2024 Encounter for screening for cardiovascular disorders [...] necessary adjustments to the treatment plan. 02/09/2024 Drug induced subacute dyskinesia (ICD-10 - [...] kidney function and follow up with the traffic assistant as recommended. 6. Smoking cessation: - Patient [...] medication. 06/23/2024 Nicotine use (ICD-10 - Z72.0) 07/26/2024 Chronic kidney disease, stage 3 unspecified (ICD-10 - N18.30) followed by traffic assistant 07/26/2024 Nicotine dependence, cigarettes, uncomplicated (ICD-10 - F17.210) has tried chantix in the past- states it makes her smoke more, Bupropion- makes dizzy 06/23/2024 Encounter for screening for depression (ICD-10 - Z13.31) 06/23/2024 Chronic obstructive pulmonary disease, unspecified (ICD-10 - J44.9) 07/26/2024 Chronic obstructive pulmonary disease, unspecified (ICD-10 [...] efforts have been made to correct them. 07/26/2024 Kuldip Yusuf, a female patient with a history of depression and tardive dyskinesia, presents with ongoing depressive symptoms, smoking cessation difficulties, and relationship stress. Major Depressive Disorder Assessment: Patient reports fluctuating depressive symptoms, stating Some days are good, sometimes they're not. Contributing factors include relationship stress with her , who is dealing with his own health issues and depression related to cancer. Patient mentions getting aggravated real easy and struggling to manage her reactions to her 's behavior, which she perceives as intentionally provocative. Previous involvement with caregiver support programs was reported as beneficial. Plan: - Continue sertraline 150 mg PO daily for depression - Encouraged to continue engagement with caregiver support programs - Follow up in 3 months Nicotine Dependence Assessment: Patient reports unsuccessful smoking cessation attempt with bupropion. She experienced significant side effects including severe dizziness resulting in falls, with the last fall causing back pain from the top of my butt all the way to the bottom of my skull. Patient discontinued bupropion on medical advice and reports she is smoking like crazy with no reduction in tobacco use. Plan: - Discontinue bupropion due to adverse effects (dizziness, falls) - Monitor for ongoing nicotine dependence Tardive Dyskinesia Assessment: Patient has a history of tardive dyskinesia, currently managed with medication. Plan: - Continue Ingrezza 80 mg PO daily for tardive dyskinesia Insomnia Assessment: Patient has a history of insomnia, currently managed with medication. Plan: - Continue trazodone 100 mg PO at bedtime for insomnia the note is transcribed using speech recognition software. It is a reflection of a visit with the patient. It might have some inaccuracy, including medication names and transcribing errors, though efforts have been made to correct them. 10/19/2024 Kuldip Yusuf is a patient with a history of depression, anxiety, and abnormal movements, who recently started home healthcare and is preparing for rotator cuff surgery. Major Depressive Disorder Assessment: Patient reports ongoing depression, though less severe than previously. Currently managed with sertraline 150 mg daily. Previously tried bupropion, which caused dizziness and was discontinued. Plan: - Continue sertraline 150 mg PO daily Anxiety Disorder Assessment: Patient reports slight improvement in anxiety symptoms. Currently managed with sertraline. Plan: - Continue current management with sertraline Insomnia Assessment: Patient uses trazodone at bedtime for sleep. Sometimes requires 1.5 tablets as advised by a pharmacist. Plan: - Continue trazodone at bedtime - Patient may take up to 1.5 tablets as needed Tardive Dyskinesia Assessment: Patient is on valbenazine (Ingrezza) for management of abnormal movements, likely tardive dyskinesia. Plan: - Continue valbenazine Restless Legs Syndrome Assessment: Patient reports improvement with ropinirole prescribed by Dr. Mixon for restless legs syndrome. Medication is taken at bedtime. Plan: - Continue ropinirole at bedtime Tobacco Use Assessment: Patient reports significant reduction in cigarette smoking, having smoked only about 5 cigarettes since Mother's Day. Currently vaping but expresses intention to quit vaping as well. Plan: - Encourage complete cessation of tobacco products, including vaping the note is transcribed using speech recognition software. It is a reflection of a visit with the patient. It might have some inaccuracy, including medication names and transcribing errors, though efforts have been made to correct them. Plan Of Treatment Next Appt Details Provider Name:Daniele allen, 01/18/2025 02:00:00 PM, [address] [facility] [address] [facility] [address], [place], [address], Insurance Providers Payer Name Payer Address Payer Phone Subscriber Number Group Number Insured Name Patient Relationship to Insured Coverage Start Date Coverage End Date Medicare-I l Medicare [address] [place] [address] [id number] RODRI YUSUF Self - patient is the insured Medicaid-I l Medicaid [address] [address] [place] [address] [id number] ELSA YUSUFKY Self - patient is the insured Medical (General) History Medical History History ICD Code Problems: Chronic kidney disease stage 3 Chronic obstructive lung disease Hepatic cystadenoma Mild recurrent major depression Neuroleptic-induced tardive dyskinesia Persistent insomnia Tobacco dependence caused by cigarettes , Surgical History Surgery Date(Month/Year) Any surgical history Hysterectomy/revise vagina (03934) Unlisted procedure breast () Xcapsl ctrc rmvl cplx wo ecp (93158)
--- OUTSIDE RECORDS SUMMARY | 2024-12-13 17:22 | XMS_ITS | Encounter Summary ---
Author Organization [facility] Address [address] [place] [address] Care Team Providers Care Adjunct Psychology Professor Name Role Phone Saul Marcelino MD Primary Care Provider [phone] None, Physician Primary Care Provider Unavailabl e Saul Marcelino MD Primary Care Provider [phone] Francia Hammonds MD Unavailable [phone] Andre Mccann MD Unavailable [phone] Ana Andersen MD Unavailable [phone] Vincent Sandra MD Unavailable Joan Wood MD Unavailable Lyudmila Bangura MD Unavailable Gloria Alatorre MD Unavailable Mony Zaldivar PharmD Unavailable Unavaila Shirley Barillas PharmD Unavailable Unavailable Anastacia Garces RN Unavailable Unavailable Tabatha Solorzano Unavailable Unavailable Ness Ortiz Unavailable Sarah Grisel Singh REPORT CHECKER-FINANCIAL REPORTING ANALYST Unavailable Nannette Joshi RN Unavailable Unavailable Sylwia LovelaceW Unavailable Unavailab le Encounter Details Date Type Department Care Team (Late st Contact Info) Description 11/06/2022 Telephone [facility] - Neurology [facility] [facility], [facility] [place] [address] Taylor Perry MD Social History Tobacco Use [...] on file Legal Sex 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 TESTING PROJECTS ADMINISTRATOR Gender Identity Not on file Sexual Orientation [...] of Assessment Author No 08/07/2022 10:21 AM KUSUMT Pina Love RN * Does person have difficulty doing errands alone? Answer Date of Assessment Author No 08/07/2022 10:21 AM CDT Pina Love RN documented as of this encounter Mental Status * Does person have difficulty concentrating/remembering/making decisions? Answer Entry Date Author No 07/07/2022 1:46 PM CDT Terra, El izabeth, RN documented in this encounter Miscellaneous Notes [...] [facility] - Echosonography [address] [facility] [address] [place] [address] 01/05/2025 8:30 AM CDT Office Visit [facility] [place] - Nephrology [address] [place] [address], [place] [phone] Francia Hammonds MD [address] [facility] [address]L [place] [address] 02/06/2025 2:00 PM TESTING PROJECTS ADMINISTRATOR Appointment [facility] SC[facility] [address] [place] [phone] Beau Myrick MD [address] [facility] 2L DIV OF PULMONARY/[place] [address] 03/16/2025 2:00 PM TESTING PROJECTS ADMINISTRATOR Office Visit [facility] - Neurology [address] [place] [address], [place] [phone] Gary Virgen APRN-FINANCIAL REPORTING ANALYST [address] [facility] [address]L [place] [phone] 03/21/2025 11:00 AM TESTING PROJECTS ADMINISTRATOR Office Visit [facility] - Sleep Services [address] [facility] [address] [place] [address] Maura Simmons, APNP-FINANCIAL REPORTING ANALYST [address] [facility] [address] [place] [address] 06/07/2025 11:00 AM TESTING PROJECTS ADMINISTRATOR Office Visit [facility] - Cardiology [address] [facility] [place] [address] Andrés Kaye MD [address] [facility] [address] [place] [address] 09/13/2025 1:45 PM CDT Appointment [facility] [address] [facility], 2nd [place] [address] 09/13/2025 2:00 PM CDT Office Visit [facility] - Hematology/Oncology [address] [place] [address] Aubree Thomas MD [address] [place] [address] documented as of this encounter Goals Goal [...] on filedocumented in this encounter Care Teams Adjunct Psychology Professor Relationship Specialty Start Date End Date Saul Marcelino MD [address] [place] [phone] PCP - General Family Medicine 09/17/22 02/09/24 None, Physician [address] [place] [address] PCP - General 02/10/24 04/19/24 Saul Marcelino MD [address] [place] [address] PCP - General Family Medicine 04/20/24 Francia Hammonds MD [address] [facility] 3L [place] [address] Research Geologist Nephrology 11/24/24 Andre Mccann MD [address] [place] [phone] Hematology and Oncology 11/24/24 [place] [address] [place] [address] Hematology and Oncology 11/24/24 [place] [address] [place] [address] Production Recovery Operator/Oncologist Hematology and Oncology 11/24/24 Joan Wood MD [address] [place] [address] Production Recovery Operator/Oncologist Hematology and Oncology 11/24/24 Lyudmila Bangura MD [address] [address] Physician Hematology and Oncology 11/24/24 Gloria Alatorre MD [address] [place] [phone] Physician Hematology and Oncology 11/24/24 Mony Zaldivar, PharmD 11/24/24 Shirley Barahona, PharmD Pharmacist 11/24/24 Anastacia Garces, RN Registered Nurse 11/24/24 Tabatha Solorzano 11/24/24 Ness Ortiz 11/24/24 Grisel Dobbins APRN-FINANCIAL REPORTING ANALYST [address] [place] [address] Nurse Practitioner Nurse Practitioner 11/24/24 Nannette Joshi, KIMO Registered Nurse 11/24/24 Sylwia Lovelace, SEAN [address] [place] [address] Route Delivery Manager 11/24/24 documented as of this encounter
--- OUTSIDE RECORDS SUMMARY | 2024-12-13 17:22 | XMS_ITS | Clinical Summary ---
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 Name Role Phone Saul Marcelino MD Primary Care Provider [phone] Francia Hammonds MD Unavailable [phone] Andre Mccann MD Unavailable [phone] Ana Andersen MD Unavailable [phone] Vincent Sandra MD Unavailable [phone] Joan Wood MD Unavailable Lyudmila Bangura MD Unavailable Gloria Alatorre MD Unavailable Mony Zaldivar PharmD Unavailable Unavaila ble Shirley Barahona PharmD Unavailable Unavailable Anastacia Garces RN Unavailable Unavailable Tabatha Solorzano Unavailable Unavailable Ness Ortiz Unavailable Sarah Grisel Singh PYTHON DEVELOPER-SAMPLE EXAMINER Unavailable Nannette Joshi RN Unavailable Unavailable Sylwia Lovelace LCSW Unavailable Unavailab le Source Comments [facility],non-owned Affiliates and Associated Physician Practices is amultiple site organization consisting of ambulatory clinics and hospital sitesin [place], [place], [place] and [place]. This disclosure is being madepursuant to the Care Everywhere program and may not contain all information available regarding this patient. Last updated 17.[facility] Health Allergies Active Allergy Reactions Criticality Noted Date [...] document. Alwaysverify current medications with the patient. HYDROcodone-acet aminophen (NORCO) 10-325 MG tablet Take 1 (one) [...] hours as needed for Nausea/Vomiting 4 Active isosorbide mononitrate CR 24hr (Imdur) 60 MG tablet TAKE 2 TABLETS BY MOUTH ONCE DAILY 180 tablet 3 4 Active carvedilol (Coreg) 25 MG tablet Take 1 (one) tablet by mouth 2 times daily with morning and evening meal 180 tablet 3 4 Active polyethylene glycol (Gavilyte-C) 240 g solution Drink half of prep solution at 5pm the night before colonoscopy. Finish the prep at 4am the day of test. 4000 mL 4 Active Additional Information Patient not taking.Reported on 12/07/2024 sodium bicarbonate 650 MG tablet Take 2 (two) tablets by mouth 2 times daily 120 tablet 3 5 Active umeclidinium-nilo anterol (Anoro Ellipta) 62.5-25 MCG/ACT inhaler Inhale 1 (one) puff by mouth once daily 60 Each 4 5 Active naloxegol (Movantik) 12.5 MG tablet Take 1 (one) tablet by mouth daily before breakfast 30 tablet 3 5 Active atorvastatin (Lipitor) 80 MG tablet Take 1 (one) tablet by mouth at bedtime 90 tablet 3 5 Active albuterol (Proventil;Dread aris) (2.5 MG/3ML) 0.083% nebulizer solutionIndicati ons:Mild persistent asthma without complication (HCC) Inhale 2.5 (two and one-half) mg by mouth every 6 hours as needed 99 mL 3 5 Active albuterol HFA (Proventil; Ventolin; Proair) 108 (90 Base) MCG/ACT inhaler Inhale 2 (two) puffs by mouth every 4 hours as needed 18 g 5 Active topiramate (Topamax) 25 MG tabletIndication s:Migraine Take 2 (two) tablets by mouth 2 times daily Reasons: Migraine Headache 180 tablet 4 5 Active Ingrezza 80 MG CAPSIndications: Tardive dyskinesia Take 1 (one) capsule by mouth once daily 30 capsule 5 Active amantadine (Symmetrel) 100 MG capsuleIndicatio ns:Tardive dyskinesia Take 1 (one) capsule by mouth once daily 90 capsule 5 5 Active rOPINIRole (Requip) 0.25 MG tabletIndication s:RLS (restless legs syndrome) Take 1 (one) tablet by mouth at bedtime 30 tablet 11 5 Active nitroGLYCERIN (Nitrostat) 0.4 MG tablet ONE TABLET UNDER TONGUE NEEDED FOR CHEST PAIN EVERY 5 MINUTES NEEDED FOR ANGINA 100 tablet 5 Active polyethylene glycol (Golytely) solution Drink half of prep solution at 5pm the night before colonoscopy. Finish the prep at 4am the day of test. 4000 mL Active Additional Information Patient not taking.Reported on 12/07/2024 polyethylene glycol 3350 (Miralax) 17 GM/SCOOP powder starting a week before your colonoscopy, take a dose of Miralax twice a day 238 g 5 Active bisacodyl EC (Dulcolax) 5 MG tablet Take 4 tablets orally at noon 2 days before your colonoscopy. Take 4 tablets orally at noon the day before your colonoscopy 8 tablet Active Vitamin K 100 MCG TABS Take 1 (one) tablet by mouth once Active Active Problems Problem Noted Date Diagnosed [...] related hypoxia 05/14/2023 BERTA (obstructive sleep apnea) 05/14/20234 Overview (05/23/2024): Split-night PSG peformed on 06/17/2023 [...] artery disease of n ative artery of [place] heart with stable angina pectoris 09/17/2022 Angina pectoris 06/25/2022 Overview (06/25/2022): Added automatically from request for surgery [id number] Nontoxic multinodular goiter 12/28/2020 Overview (02/13/2021): Last [...] Encounters Date Type Department Care Team Description 12/07/2024 11:15 AM CDT Office Visit [facility] - Cardiology [address] [facility], [facility] [address] [place] [address] Andrés Kaye MD Chronic obstructive pulmonary disease, unspecified COPD type (HCC) (Primary Dx); Essential hypertension; Coronary artery disease of [place] artery of [place] heart with stable angina pectoris; BERTA (obstructive sleep apnea); Mixed hyperlipidemia 12/07/2024 Travel 11/30/2024 2:08 PM CDT - 11/30/2024 11:59 PM CDT Hospital Encounter [facility] [address] [place] [address] Adarsh Menendez MD Discharge Disposition: Home or Self Care 11/30/2024 Travel 11/30/2024 Telephone [facility] GI [address] [place] [address] Jackeline Umanzor MD Results 11/25/2024 Telephone [facility] - Nephrology [address] [place] [phone] Francia Hammonds MD Follow-up 11/25/2024 Telephone [facility] [address] [place] [address] Jayla Steiner 11/23/2024 Orders Only [facility] - Nephrology [address] [place] [phone] Francia Hammonds MD Proteinuria, unspecified type 11/23/2024 Telephone [facility] - Nephrology [address] [place] [phone] Huong Espinal, RN Question 11/23/2024 Telephone [facility] - Nephrology [address] [place] [phone] Francia Hammonds MD LABS ONLY; Follow-up 11/17/2024 1:20 PM CDT Anesthesia Event [facility] [address] [place] [address] Claude Parekh MD 11/17/2024 12:30 PM CDT - 11/17/2024 1:15 PM CDT Surgery [facility] [address] [place] [address] Jewel Dooley MD COLONOSCOPY SCREEN--- extended prep 11/17/2024 10:52 AM CDT - 11/17/2024 3:29 PM CDT Hospital Encounter [facility] [address] [place] [address] Jewel Dooley MD Surgery General Discharge Disposition: Home or Self Care 11/17/2024 Travel 11/14/2024 Travel 11/11/2024 1:15 PM CDT - 11/11/2024 11:59 PM CDT Hospital Encounter [facility] [address] [place] [address] Discharge Disposition: Home or Self Care 11/11/2024 Travel 11/09/2024 Orders Only [facility] [address] [place] [address] Radha Steiner RN 11/04/2024 Patient Outreach [facility] [address] [place] [address] Yelitza Espino, KIMO Pre-op Instructions 11/02/2024 2:00 PM CDT Office Visit [facility] - Nephrology [address] [place] [phone] Adarsh Menendez MD Stage 3b chronic kidney disease (HCC) (Primary Dx); Persistent proteinuria; Acute renal failure with other specified pathological lesion in kidney; Encounter for screening for other viral diseases; Chronic kidney disease, stage 3b (HCC) 11/02/2024 12:55 PM CDT - 11/02/2024 11:59 PM CDT Hospital Encounter [facility] [address] [place] [address] Discharge Disposition: Home or Self Care 11/02/2024 Orders Only [facility] [address] [place] [phone] Bertha Banks RN Stage 3b chronic kidney disease (HCC) ; Low vitamin D level; Mixed hyperlipidemia; Hyperparathyroidism (HCC) 11/02/2024 Travel 11/01/2024 Orders Only [facility] [address] [place] [phone] Judie Cerrato, KIMO 10/29/2024 Refill [facility] - Pulmonology [address] [place] [phone] Maico Murphy MD Refill Request 10/25/2024 Travel 10/24/2024 4:00 PM CDT Office Visit [facility] - ENT [address] [place] [phone] Rufino Toscano MD Sensorineural hearing loss (SNHL) of both ears (Primary Dx); Cochlear implant status; Migraine equivalent; Otalgia of both ears; Hoarseness; Dizziness and giddiness; Migraine with aura and with status migrainosus, not intractable; Neck pain 10/24/2024 3:30 PM CDT Testing Visit [facility] - ENT [employer] [facility], [place] [address] Ness Burton AuD Sensorineural hearing loss (SNHL) of both ears 10/24/2024 Travel 10/22/2024 Refill [facility] - Cardiology [address] [facility], [facility] [address] [place] [address] Andrés Kaye MD Refill Request 10/12/2024 Telephone [facility] [address] [place] [phone] Jackeline Umanzor MD Results 10/06/2024 Telephone [facility] [address] [place] [address], [place] [phone] Inocente Renee MD Results 10/04/2024 Telephone [facility] - Pulmonology [address] [place] [phone] Kunal Lennon MD Med Question 10/04/2024 Orders Only [facility] - Pulmonology [address] [place] [phone] Trixie Yoon RN Mild persistent asthma without complication (HCC) 10/04/2024 Refill [facility] - Pulmonology [address] [place] [phone] Kunal Lennon MD MEDICATION REFILL 10/04/2024 Refill [facility] - Pulmonology [address] [place] [phone] Beau Myrick MD MEDICATION REFILL 10/04/2024 Refill [facility] - Pulmonology [employer] [place] [address] Maico Murphy MD MEDICATION REFILL 09/22/2024 11:00 AM CDT - 09/22/2024 12:30 PM CDT Surgery [facility] [address] [place] [address] Procedure, Nursing G_I GASTRIC MOTILITY STUDY 09/22/2024 10:08 AM CDT - 09/22/2024 11:48 AM CDT Hospital Encounter [facility] [address] [place] [address] Jewel Dooley MD Gastroenterology Discharge Disposition: Home or Self Care 09/22/2024 Travel 09/22/2024 Telephone [facility] [address] [place] [address] Red Haque, RN Returned Call 09/16/2024 Telephone [facility] - Pulmonology [address] [place] [phone] Kunal Lennon MD Medication Prior Auth Request 09/15/2024 3:40 PM CDT Office Visit [facility] - Hematology/Oncolo gy [address] [place] [address] Aubree Thomas MD Monoclonal gammopathy (Primary Dx); Elevated serum immunoglobulin free light chain level 09/15/2024 3:06 PM CDT - 09/15/2024 11:59 PM CDT Hospital Encounter [facility] [address] [facility], 2nd [place] [address] Discharge Disposition: Home or Self Care 09/15/2024 Travel 09/14/2024 2:00 PM CDT Office Visit [facility] - Neurology [address] [place] [phone] Gary Virgen APRN-POP Tardive dyskinesia (Primary Dx); Migraine variant; RLS (restless legs syndrome) 09/14/2024 Travel from Last 3 Months Immunizations Immunization Administration Dates Next Due COVID PFIZER 12+YR 30MCG/0.3mL 10/18/2024,2022 Covid Pfizer primary Monoval ent 12+ yr 0.3ml 10/30/2021 Covid Pfizer primary monoval ent 12+ yr 0.3mL Purple cap 04/04/2021,09/23/2020,09/02/2020 FLU VACCINE TRI IIV3 SPLIT IM (FLUVIRIN) 014 INFLUENZA VACCINE, CELL CULT URE, QUADR. (FLUCELVAX QUADRIVALENT; 6MO+) (CCIIV4) 04/04/2021 INFLUENZA VACCINE, HIGH-DOSE , QUADR. (FLUZONE HIGH-DOSE QUADRIVALENT; 65Y+), 0.7 ML (HD-IIV4) 12/29/2023,02/03/2023 INFLUENZA VACCINE, QUADR. (F LUZONE; FLULAVAL; FLUARIX; AFLURIA QUADRIVALENT; 6MO+), 0.5 ML (IIV4) 04/18/2019,01/28/2017,02/21/2013 PNEUMOCOCCAL PCV20 CONJ VAC IM 08/13/2022 PNEUMOCOCCAL PPV VACCINE 02/21/2013 Palivizumab 02/10/2023 Pneumococcal Pcv13 Conj 02/15/2014 RSV AREXVY 60YR+ 0.5ML 02/10/2023 Zoster Hzv Vacc Recombinant Inj Im 10/18/2024 Family History Medical History Relation Name Comments [...] Used Date Smoking Tobacco: Former Cigarettes 0.5 60.7 S tarted: 1965 Smokeless Tobacco: Current Tobacco Cessation:Ready to Q uit: Not Asked; Counseling Given: Not Answered Comments:0.25 11/2024 Alcohol Use Standard Drinks/Week Comments Not Currently [...] on file 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 Gender Identity Not on file Sexual Orientation Not on file Occupation Industry Job Start Date Job End Date former worked in [employer] Not on file Not on file Not on file Last Filed Vital Signs Vital Sign Reading Time Taken Comments Blood Pressure 152/64 12/07/2024 10:51 AM CDT Pulse 56 12/07/2024 10:51 AM CDT Temperature 37 C (98.6 F) 11/17/2024 2:25 PM CDT Respiratory Rate 13 11/17/2024 2:40 PM CDT Oxygen Saturation 92% 12/07/2024 10:51 AM CDT Inhaled Oxygen Concentration - - Weight 74.8 kg (165 lb) 12/07/2024 10:51 AM CDT Height 154.9 cm (5' 1) 12/07/2024 10:51 AM CDT Body Mass Index 31.18 12/07/2024 10:51 AM CDT Plan of Treatment Upcoming Encounters Date Type Department Care Team (Late st Contact Info) Description 01/04/2025 11:00 AM CDT Ancillary Procedure [facility] - Echosonography [address] [facility] [address] [place] [address] 01/05/2025 8:30 AM CDT Office Visit [facility] - Nephrology [address] [facility], [place] [phone] Francia Hammonds MD [address] [facility] 3L [place] [address] 02/06/2025 2:00 PM SILK SCREEN PROCESSOR Appointment [facility] SC[facility] [address] [place] [address] Beau Myrick MD [address] [facility] 2L DIV OF PULMONARY/[place] [address] 03/16/2025 2:00 PM SILK SCREEN PROCESSOR Office Visit [facility] - Neurology [address] [facility], [place] [phone] Gary Virgen APRN-SAMPLE EXAMINER [address] [facility] 1L [place] [phone] 03/21/2025 11:00 AM SILK SCREEN PROCESSOR Office Visit [facility] - Sleep Services [address] [phone] Maura Simmons, APNP-SAMPLE EXAMINER [address] [phone] 06/07/2025 11:00 AM SILK SCREEN PROCESSOR Office Visit [facility] - Cardiology [address] [facility], [place] [phone] [place] [address] Andrés Kaye MD [address] [facility] [address] [place] [address] 09/13/2025 1:45 PM CDT Appointment [facility] [address] [facility], 2nd [place] [address] 09/13/2025 2:00 PM CDT Office Visit [facility] - Hematology/Oncology [address] [place] [phone] Aubree Thomas MD [address] [place] [phone] Health Maintenance Due Date Last Done Comments BONE DENSITY TESTING 1955 COLOGUARD (AGES 45-75) - COLON CA SCREENING 1956 CT COLONOGRAPHY - COLON CA SCREENING 1955 FIT - COLON CA SCREENING 1955 FLEX SIG - COLON CA SCREENING 1955 MEDICARE AWV 12 MONTHS 1955 DTAP/TDAP/TD VACCINES (1 - Tdap) 11/04/1975 MAMMOGRAM 10/05/2014 10/05/2012 DEPRESSION SCREENING 04/06/2024 INFLUENZA VACCINE (#1) 2024 4, 02/03/2023, 04/04/2021, Additional history exists ZOSTER VACCINE (2 of 2) 12/13/2024 10/18/2024 COVID-19 VACCINE ( season) 2025 10/18/2024, 02/10/2023, 10/30/2021, Additional history exists SCREENING FOR DIABETES 11/12/2027 5, 11/02/2024, 09/15/2024, Additional history exists COLON MONITORING 11/17/2034 11/17/2024, 11/17/2024 COLONOSCOPY - COLON CA SCREENING 11/17/2034 11/17/2024, 11/17/2024 Colorectal Cancer Screening 11/17/2034 PNEUMOCOCCAL VACCINE 50+ Completed 023, 02/15/2014, 02/21/2013 Respiratory Syncytial Virus (RSV) Vaccine Pt: or over 60 yrs Completed 02/10/2023 HEPATITIS C SCREENING Completed 11/11/2024, 017 HEPATITIS B VACCINE Aged Out No longe [...] Maintain an unobstructed path to the bathroom Medical Devices Implanted Type Area Plating And Point Assembly Supervisor Device Identifier Shelf Expiration Date Model / Serial / Lot Sys Cor Stent Sng Xd Mr 2.25mm 20mm Dlv - [id number] Implanted:Qty: 1 on 08/17/2023 by Jeane Lu MD at [facility] Left: Coronary Spaciety ([employer]) Nelida [id number] 07/14/2024 [id number] / [id number] / [id number] Procedures Procedure Name Priority Date/Time Associated Diagnosis Comments US KIDNEY WITH DOPPLER Routine 11/30/2024 4:04 PM CDT Persistent proteinuria Chronic kidney disease, stage 3b (HCC) PATHOLOGY TISSUE Routine 11/17/2024 1:51 PM CDT Colon cancer screening CO COLOREC CANC JOHNN,[place] NOT HI RISK 11/17/2024 1:16 PM CDT Colon cancer screening Special Needs Message Received: Today Radha Steiner RN Feilner, Michelle, RN Previous Messages ----- Message ----- From: Jackeline Umanzor MD Sent: 08/15/2024 3:41 PM CDT To: [facility] Schedulers - Endoscopy Pool This patient had a colonoscopy ordered by previous provider. Seen in clinic today, but colonoscopy not scheduled yet. Just wanted to make sure you are aware of patient for scheduling. Thanks, Jackeline Umanzor Received Date Received Time August 16, 2024 10:43 AM ENDOSCOPY, COLON, SCREENING Routine 11/17/2024 1:14 PM CDT PROTEIN ELECTROPHORESIS URINE RANDOM Routine 11/11/2024 2:05 PM CDT Stage 3b chronic kidney disease (HCC) Persistent proteinuria MICROALB/CREAT RATIO URINE RANDOM PANEL Routine 11/11/2024 2:05 PM CDT Stage 3b chronic kidney disease (HCC) HEPATITIS C ANTIBODY Routine 11/11/2024 1:28 PM CDT Stage 3b chronic kidney disease (HCC) Persistent proteinuria HEPATITIS B SURFACE ANTIGEN W RFLX CONFIRMATION Routine 11/11/2024 1:28 PM CDT Stage 3b chronic kidney disease (HCC) Persistent proteinuria Encounter for screening for other viral diseases HEPATITIS B SURFACE ANTIBODY QUANT Routine 11/11/2024 1:28 PM CDT Stage 3b chronic kidney disease (HCC) Persistent proteinuria Encounter for screening for other viral diseases PT-INR STAT 11/11/2024 1:28 PM CDT Stage 3b chronic kidney disease (HCC) Persistent proteinuria Acute renal failure with other specified pathological lesion in kidney RENAL FUNCTION PANEL Routine 11/11/2024 1:28 PM CDT Stage 3b chronic kidney disease (HCC) Persistent proteinuria PROTEIN ELECTROPHORESIS BLOOD Routine 11/11/2024 1:28 PM CDT Stage 3b chronic kidney disease (HCC) Persistent proteinuria MPO/CO 3 AUTOANTIBODIES PANEL Routine 11/11/2024 1:28 PM CDT Stage 3b chronic kidney disease (HCC) Persistent proteinuria KAPPA/LAMBDA LITE CHAIN FREE PANEL Routine 11/11/2024 1:28 PM CDT Stage 3b chronic kidney disease (HCC) Persistent proteinuria GLOMERULAR BASE MEMBRANE ANTIBODY IGG Routine 11/11/2024 1:28 PM CDT Stage 3b chronic kidney disease (HCC) Persistent proteinuria DNA ANTIBODY DS CRITHIDIA TITER Routine 11/11/2024 1:28 PM CDT Stage 3b chronic kidney disease (HCC) Persistent proteinuria COMPLEMENT C4 Routine 11/11/2024 1:28 PM CDT Stage 3b chronic kidney disease (HCC) Persistent proteinuria COMPLEMENT C3 Routine 11/11/2024 1:28 PM CDT Stage 3b chronic kidney disease (HCC) Persistent proteinuria RUDY BLOOD SCREEN W/REFLEX TITER Routine 11/11/2024 1:28 PM CDT Stage 3b chronic kidney disease (HCC) Persistent proteinuria URINALYSIS REFLEX TO MICROSCOPIC NO CULTURE Routine 11/02/2024 2:26 PM CDT Stage 3b chronic kidney disease (HCC) Mixed hyperlipidemia Hyperparathyroidi sm (HCC) MICROALB/CREAT RATIO URINE RANDOM PANEL Routine 11/02/2024 2:26 PM CDT Stage 3b chronic kidney disease (HCC) Mixed hyperlipidemia Hyperparathyroidi sm (HCC) CBC W AUTO DIFFERENTIAL Routine 11/02/2024 1:21 PM CDT Stage 3b chronic kidney disease (HCC) Mixed hyperlipidemia Hyperparathyroidi sm (HCC) RENAL FUNCTION PANEL Routine 11/02/2024 1:21 PM CDT Stage 3b chronic kidney disease (HCC) Mixed hyperlipidemia Hyperparathyroidi sm (HCC) MAGNESIUM BLOOD Routine 11/02/2024 1:21 PM CDT Stage 3b chronic kidney disease (HCC) Mixed hyperlipidemia Hyperparathyroidi sm (HCC) FERRITIN Routine 11/02/2024 1:21 PM CDT Stage 3b chronic kidney disease (HCC) Mixed hyperlipidemia Hyperparathyroidi sm (HCC) IRON BLOOD Routine 11/02/2024 1:21 PM CDT Stage 3b chronic kidney disease (HCC) Mixed hyperlipidemia Hyperparathyroidi sm (HCC) TRANSFERRIN Routine 11/02/2024 1:21 PM CDT Stage 3b chronic kidney disease (HCC) Mixed hyperlipidemia Hyperparathyroidi sm (HCC) PTH INTACT W/O CALCIUM Routine 11/02/2024 1:21 PM CDT Stage 3b chronic kidney disease (HCC) Low vitamin D level Mixed hyperlipidemia Hyperparathyroidi sm (HCC) VITAMIN D 25-HYDROXY Routine 11/02/2024 1:21 PM CDT Stage 3b chronic kidney disease (HCC) Low vitamin D level Mixed hyperlipidemia Hyperparathyroidi sm (HCC) CO LARYNGOSCOPY,FLEX FIBER,DIAGNOSTIC Routine 10/24/2024 4:34 PM CDT Hoarseness AUDIOLOGY/TYMPANOMETR Y ORDER Routine 10/24/2024 3:21 PM CDT CO ESOPHAGUS MOTILITY STUDY 09/22/2024 10:30 AM CDT Dysphagia, unspecified type PROTEIN ELECTROPHORESIS BLOOD Routine 09/15/2024 3:08 PM CDT Tobacco user IMMUNOFIXATION BLOOD Routine 09/15/2024 3:08 PM CDT Tobacco user PROTEIN ELECTROPHORESIS BLOOD Routine 09/15/2024 3:06 PM CDT Cystic disease of liver IGM BLOOD Routine 09/15/2024 3:06 PM CDT Cystic disease of liver IGG BLOOD Routine 09/15/2024 3:06 PM CDT Cystic disease of liver IGA BLOOD Routine 09/15/2024 3:06 PM CDT Cystic disease of liver COMPREHENSIVE METABOLIC PANEL Routine 09/15/2024 3:06 PM CDT Stage 3b chronic kidney disease (HCC) CBC W AUTO DIFFERENTIAL Routine 09/15/2024 3:06 PM CDT Stage 3b chronic kidney disease (HCC) from Last 3 Months Results * US Kidney With Doppler Complete (11/30/2024 4:04 PM CDT) Anatomical Region Laterality Modality Abdomen Ultrasound 11/30/2024 4:2 0 PM CDT Impressions 11/30/2024 4:53 PM CDT IMPRESSION: 1. Increased echogenicity of bilateral kidneys, may represent chronic kidney disease. There are bilateral renal cysts and nephrolithiasis, no hydronephrosis. 2. Patent renal vasculature with mildly elevated resistive indices likely related to chronic parenchymal disease. > Interpreting Provider: Swetha Castro MD on 11/30/2024 4:53 PM Narrative 11/30/2024 4:53 PM CDT PROCEDURE: US KIDNEY WITH DOPPLER COMPLETE DATE/TIME OF EXAM: 11/30/2024 4:04 PM CLINICAL INFORMATION: EXAMINATION: 1. Complete retroperitoneal sonogram 2. Color and spectral Doppler evaluation of the renal vasculature HISTORY: R80.1: Persistent proteinuria N18.32: Chronic kidney disease, stage 3b (HCC) COMPARISON: 07/17/2023 FINDINGS: Retroperitoneum: Right kidney: 9.0 x 4.7 x 5.1 cm, volume: 113 cc Left kidney: 10.6 x 5.3 x 3.9 cm, volume: 114 cc Renal parenchymal echogenicity is increased. Multiple renal cysts are present, largest one on the right measuring up to 1.1 cm in largest one left measuring 2.2 cm. Multiple subcentimeter echogenic calculi are noted in bilateral kidneys, largest on the right measuring up to 5 mm and largest on the left measuring up to 8 mm. There is no evidence of a solid renal mass, renal calculi, or hydronephrosis. The bladder is distended and appears normal. The prevoid bladder volume is measured on 231 cc. There is no significant postvoid residual. The distal abdominal aorta is mildly dilated measuring 2.6 x 2.5 cm. Renal Doppler: Arcuate arterial waveforms in both kidneys demonstrate brisk systolic upstrokes. While the renal arteries were not interrogated in their entirety, the visible portions display normal arterial waveforms and velocities. Resistive indices: Right superior kidney: 0.81 Right mid kidney: 0.74 Right inferior kidney: 0.77 Right renal artery at the hilum: 0.78, PSV: 44.1 cm/s Mid right renal artery: 0.82, PSV: 84.4 cm/s Right renal artery at the aorta: 0.87, PSV: 86 cm/s Left superior kidney: 0.63 Left mid kidney: 0.69 Left inferior kidney: Left renal artery at the hilum: 0.75, 33.8 cm/s Mid left renal artery: 0.91, 77.6 cm/s Left renal artery at the aorta: 0.89, PSV: 105.8 cm/s Procedure Note Monica Castro MD - 11/30/2024 PROCEDURE: US KIDNEY WITH DOPPLER COMPLETE DATE/TIME OF EXAM: 11/30/2024 4:04 PM CLINICAL INFORMATION: EXAMINATION: 1. Complete retroperitoneal sonogram 2. Color and spectral Doppler evaluation of the renal vasculature HISTORY: R80.1: Persistent proteinuria N18.32: Chronic kidney disease, stage 3b (HCC) COMPARISON: 07/17/2023 FINDINGS: Retroperitoneum: Right kidney: 9.0 x 4.7 x 5.1 cm, volume: 113 cc Left kidney: 10.6 x 5.3 x 3.9 cm, volume: 114 cc Renal parenchymal echogenicity is increased. Multiple renal cysts are present, largest one on the right measuring up to 1.1 cm in largest one left measuring 2.2 cm. Multiple subcentimeter echogenic calculi arenoted in bilateral kidneys, largest on the right measuring up to 5 mm andlargest on the left measuring up to 8 mm. There is no evidence of a solid renal mass, renal calculi, or hydronephrosis. The bladder is distended and appears normal. The prevoid bladder volumeis measured on 231 cc. There is no significant postvoid residual. The distal abdominal aorta is mildly dilated measuring 2.6 x 2.5 cm. Renal Doppler: Arcuate arterial waveforms in both kidneys demonstrate brisk systolic upstrokes. While the renal arteries were not interrogated in their entirety, the visible portions display normal arterial waveforms and velocities. Resistive indices: Right superior kidney: 0.81 Right mid kidney: 0.74 Right inferior kidney: 0.77 Right renal artery at the hilum: 0.78, PSV: 44.1 cm/s Mid right renal artery: 0.82, PSV: 84.4 cm/s Right renal artery at the aorta: 0.87, PSV: 86 cm/s Left superior kidney: 0.63 Left mid kidney: 0.69 Left inferior kidney: Left renal artery at the hilum: 0.75, 33.8 cm/s Mid left renal artery: 0.91, 77.6 cm/s Left renal artery at the aorta: 0.89, PSV: 105.8 cm/s IMPRESSION: 1. Increased echogenicity of bilateral kidneys, may represent chronic kidney disease. There are bilateral renal cysts and nephrolithiasis, no hydronephrosis. 2. Patent renal vasculature with mildly elevated resistive indiceslikely related to chronic parenchymal disease. > Interpreting Provider: Swetha Castro MD on 11/30/2024 4:53 PM [facility] ORDERABLES Final Result * PATHOLOGY TISSUE (11/17/2024 1:51 PM CDT) Case Report Surgical Pathology Report Case: [id number] Authorizing Provider: Jewel Dooley MD Collected: 11/17/2024 01:51 PM Ordering Location: [facility] Received: 11/17/2024 02:47 PM Pathologist: Arleen Mercer MD Specimens: A) - Polyp Ascending, Ascending Colon Polyp B) - Polyp Transverse, Transverse Colon Polyps x2 11/18/2024 3:46 PM CDT [facility] Final Diagnosis Large intestine, ascending colon polyp, biopsy (A): - Benign polypoid mucosa Large intestine, transverse colon polyps x 2, biopsy (B): - Tubular adenoma - Hyperplastic polyp 11/18/2024 3:46 PM CDT [facility] at 1546 CDT Microscopic Description and Comment Microscopic examination substantiates the final diagnosis. 11/18/2024 3:46 PM CDT [facility] Clinical History The patient is a 69-year-old woman presents a screening colorectal malignant neoplasm. Operative procedure/findings: Colonoscopy - 5 and 8 mm ascending colon polyps, 9 and 8 mm transverse colon polyps, all resected and retrieved. 11/18/2024 3:46 PM CDT [facility] Gross Description The requisition and specimen(s) are identified with the patient's name, Eduarda Yusuf. Received in formalin, specimen A, is one pink-lopez, glistening and focally hemorrhagic segment of soft tissue, 1.0 x 0.5 x 0.4 cm, submitted in toto as cassette A1. Received in formalin, specimen B are two pink-lopez, glistening and focally hemorrhagic segments of soft tissue, 0.3 and 0.8 cm, submitted in toto as cassette B1. AL 11/18/2024 3:46 PM CDT [facility] Pathologist Location at [facility] 11/18/2024 3:46 PM CDT [facility] Disclaimer The performance characteristics of all immunohistochemical and indirect immunofluorescence stains (if any) cited in this report were determined by the Histopathology Laboratory of [facility]. Some of these tests were developed by our own laboratory and have not been cleared or approved by the US Food and Drug Administration. The FDA does not require this test to go through premarket FDA review. These tests are used for clinical purposes. They should not be regarded as investigational or for research. This laboratory is certified under the Clinical Laboratory Improvement Amendments (CLIA) as qualified to perform high complexity clinical laboratory testing. This case has been personally reviewed and interpreted by the attending (teaching) pathologist. 11/18/2024 3:46 PM CDT [facility] Embedded Images 11/18/2024 3:46 PM CDT [facility] Biopsy, NOS POLYP / Unknown 11/17/2024 1 :51 PM CDT 11/17/2024 2:47 PM CDT Comment:Pre-op diagnosis: Colon cancer screening [Z12.11] Biopsy, NOS POLYP / Unknown 11/17/2024 2 :04 PM CDT 11/17/2024 2:47 PM CDT Comment:Pre-op diagnosis: Colon cancer screening [Z12.11] Jewel Dooley MD LAB - PATHOLOGY/CYTOLOGY ORDERA BLES Final Result [facility] [address] [facility]. [address] [phone] * ENDOSCOPY, COLON, SCREENING (11/17/2024 1:14 PM CDT) Report Endoscopy POC Endoscopy Department Report _ Patient Name: Eduarda Yusuf Procedure Date: 11/17/2024 1:14 PM Date of : 1955 Classification: Outpatient Gender: Female Ethnicity: Not or Race: or [place] _ Providers: Jewel Dooley MD, Joni Corrales MD (Fellow) Referring MD: Saul Marcelino (Referring MD) Procedure: Colonoscopy Indications: Screening for colorectal malignant neoplasm Medications: Monitored Anesthesia Care Description of Procedure: Pre-Anesthesia Assessment: - Prior to the procedure, a History and Physical was performed, and patient medications and allergies were reviewed. The patient's tolerance of previous anesthesia was also reviewed. The risks and benefits of the procedure and the sedation options and risks were discussed with the patient. All questions were answered, and informed consent was obtained. Prior Anticoagulants: The patient has taken no anticoagulant or antiplatelet agents except for aspirin. ASA Grade Assessment: II - A patient with mild systemic disease. After reviewing the risks and benefits, the patient was deemed in satisfactory condition to undergo the procedure. After I obtained informed consent, the scope was passed under direct vision. Throughout the procedure, the patient's blood pressure, pulse, and oxygen saturations were monitored continuously. The -[id number] was introduced through the anus and advanced to the cecum, identified by appendiceal orifice and ileocecal valve. The colonoscopy was performed without difficulty. The patient tolerated the procedure well. The quality of the bowel preparation was evaluated using the BBPS (Matthews Bowel Preparation Scale) with scores of: Right Colon = 3, Transverse Colon = 3 and Left Colon = 3 (entire mucosa seen well with no residual staining, small fragments of stool or opaque liquid). The total BBPS score equals 9. The ileocecal valve, appendiceal orifice, and rectum were photographed. Findings: Multiple small and large-mouthed diverticula were found in the recto-sigmoid colon. There was no evidence of diverticular bleeding. A 5 mm polyp was found in the ascending colon. The polyp was sessile. The polyp was removed with a cold snare. Resection and retrieval were complete. An 8 mm polyp was found in the ascending colon. The polyp was sessile. The polyp was removed with a cold snare. Resection and retrieval were complete. A 9 mm polyp was found in the transverse colon. The polyp was sessile. The polyp was removed with a cold snare. Resection and retrieval were complete. An 8 mm polyp was found in the transverse colon. The polyp was sessile. The polyp was removed with a cold snare. Resection and retrieval were complete. Internal hemorrhoids were found. The hemorrhoids were Grade I (internal hemorrhoids that do not prolapse). The exam was otherwise without abnormality. Estimated Blood Loss: Estimated blood loss was minimal. Complications: No immediate complications. Impression: - Diverticulosis in the recto-sigmoid colon. There was no evidence of diverticular bleeding. - One 5 mm polyp in the ascending colon, removed with a cold snare. Resected and retrieved. - One 8 mm polyp in the ascending colon, removed with a cold snare. Resected and retrieved. - One 9 mm polyp in the transverse colon, removed with a cold snare. Resected and retrieved. - One 8 mm polyp in the transverse colon, removed with a cold snare. Resected and retrieved. - Internal hemorrhoids. - The examination was otherwise normal. Recommendation: - Discharge patient to home. - High fiber diet for the rest of the patient's life. - No aspirin, ibuprofen, naproxen, or other non-steroidal anti-inflammatory drugs for 2 days after polyp removal. - Await pathology results. - Repeat colonoscopy in 1 year for surveillance. - Return to referring physician. - Patient has a contact number available for emergencies. The signs and symptoms of potential delayed complications were discussed with the patient. Return to normal activities tomorrow. Written discharge instructions were provided to the patient. Attending Participation: I was present and participated during the entire procedure, including non-berrios portions. Procedure Code(s): --- Professional --- 10027, Colonoscopy, flexible; with removal of tumor(s), polyp(s), or other lesion(s) by snare technique Diagnosis Code(s): --- Professional --- Z12.11, Encounter for screening for malignant neoplasm of colon K64.0, First degree hemorrhoids D12.2, Benign neoplasm of ascending colon D12.3, Benign neoplasm of transverse colon (hepatic flexure or splenic flexure) K57.30, Diverticulosis of large intestine without perforation or abscess without bleeding CPT copyright 2021 [employer]. All rights reserved. The codes documented in this report are preliminary and upon school age teacher review may be revised to meet current compliance requirements. Jewel Dooley MD 11/17/2024 2:56:01 PM Note Initiated On: 11/17/2024 1:14 PM Number of Addenda: [phone] [place] [address] [facility] 11/17/2024 1:14 PM CDT Jewel Dooley MD GI PROCEDURE ORDERABLES Edited Result - Final [facility] * PROTEIN ELECTROPHORESIS URINE RANDOM (11/11/2024 2:05 PM CDT) Interpretation Urine PE See Comment Normal Pattern 11/14/2024 6:07 PM CDT [facility] Comment: Urine protein electrophoresis shows a band corresponding to albumin with small amounts of other nonspecific proteinuria. No monoclonal immunoglobulins detected. Mello Carmona PhD, [facility] Clinical Distance Learning Program Coordinator hadoop administrator Protein Urine 212 Not Established mg/dL 11/14/2024 6:07 PM CDT [facility] Comment:Result obtained by jose e quan. Urine URINE SPECIMEN OBTAINED BY CLEAN CATCH PROCEDURE / Unknown Collection / Unknown 11/11/2024 2:05 PM CDT 11/11/2024 2:11 PM CDT Adarsh Menendez MD LAB - URINE CHEMISTRY ORDERABLES Final Result Performing Organization Address City/[facility]/ZIP Co de Phone Number [address] [address], [facility] [phone] * (ABNORMAL) MICROALB/CREAT RATIO URINE RANDOM PANEL (11/11/2024 2:05 PM CDT) Only the most recent of2 resultswithin the time period is included. Pathologist [facility] [place] Albumin Random Urine 1,612.1 Not Established ug/mL 11/11/2024 3:07 PM CDT [facility] Creatinine Urine 109.89 Not Established mg/dL 11/11/2024 3:07 PM CDT [facility] Urine Albumin/Creati nine Ratio 1,467(H) <30 mg/g 11/11/2024 3:07 PM CDT [facility] Urine URINE SPECIMEN OBTAINED BY CLEAN CATCH PROCEDURE / Unknown Collection / Unknown 11/11/2024 2:05 PM CDT 11/11/2024 2:11 PM CDT Adarsh Menendez MD LAB - URINE CHEMISTRY ORDERABLES Final Result Performing Organization Address [facility] Co de Phone Number [address] [address], [facility] [phone] * DNA ANTIBODY DS CRITHIDIA TITER (11/11/2024 1:28 PM CDT) dsDNA Antibody IgG <1:10 <1:10 2024 3:11 PM CDT [facility] ([facility]) Comment: INTERPRETIVE INFORMATION: Double-Stranded DNA (dsDNA) Antibody, IgG by IFA (using Crithidia luciliae) Positivity for anti-double stranded DNA (anti-dsDNA) IgG antibody is a diagnostic criterion of systemic lupus erythematosus (SLE). The presence of the anti-dsDNA IgG antibody is identified by IFA titer (Crithidia luciliae indirect fluorescent test [ZEUS'). ZEUS is highly specific for SLE with a sensitivity of 50-60 percent. Some patients with early or inactive SLE may be positive for anti-dsDNA IgG by but negative by ZEUS. If the ZEUS result is negative but the patient has a positive and clinical suspicion remains, consider antinuclear antibody (RUDY) testing by IFA. Additional information and recommendations for testing may be found at [email or web address]. Performed By: [facility] [address] [place] [address] Special Education Math Teacher: Wiliam Samuels MD, PhD CLIA Number: [id number] Blood BLOOD SPECIMEN / Unknown Lab Venipuncture / Unknown 11/11/2024 1:28 PM CDT 11/11/2024 1:30 PM CDT Adarsh Menendez MD LAB - SEROLOGY ORDERABLES Final Result [facility] ([facility]) [address] [place] [address], [facility] * HEPATITIS B SURFACE ANTIBODY QUANT (11/11/2024 1:28 PM CDT) Hepatitis B Virus Surface Antibody Non-react reji Non-react reji 11/11/2024 2:35 PM CDT [facility] Comment: < 8 mIU/mL Hepatitis B surface Antibody (HBsAb). Nonreactive for HBsAb - individual is considered not immune to Hepatitis B Virus infection. Hepatitis B Surface Antibody Quantitative <3.0 <8.0 mIU/mL 11/11/2024 2:35 PM CDT [facility] Comment: Hepatitis B Surface Antibody Numeric Result Interpretation: Nonreactive: <8.0 mIU/mL Indeterminate: 8.0 - 12.0 mIU/mL Reactive: >12.0 mIU/mL Blood BLOOD SPECIMEN / Unknown Lab Venipuncture / Unknown 11/11/2024 1:28 PM CDT 11/11/2024 1:30 PM CDT Narrative [facility] - 11/11/2024 2:35 PM CDT This assay should not be used for blood, plasma, or tissue donor screening. This assay is not recommended for neonates born to HBV-infected or suspected HBV-infected mothers. us Adarsh Menendez MD LAB - SEROLOGY ORDERABLES Final Result [facility] [address] [place] [phone], [facility] [phone] * RUDY BLOOD SCREEN W/REFLEX TITER (11/11/2024 1:28 PM CDT) RUDY IgG None Detected None Detected 11/13/2024 12:36 AM CDT [facility] ([facility]) Comment: No Anti-Nuclear Antibodies (RUDY) detected by . No further testing will be performed. If suspicion of connective tissue disease is strong and RUDY is negative, consider testing for RUDY by IFA ([id number]). INTERPRETIVE INFORMATION: Anti-Nuclear Antibodies (RUDY), IgG by Antinuclear Antibodies (RUDY), IgG by : RUDY specimens are screened using enzyme-linked immunosorbent assay () methodology. All results reported as Detected are further tested by indirect fluorescent assay (IFA) using HEp-2 substrate with an IgG-specific conjugate. The RUDY screen is designed to detect antibodies against dsDNA, histones, SS-A (Ro), SS-B (La), Gutiérrez, Gutiérrez/[employer], Scl-70, Pauline-1, centromeric proteins, other antigens extracted from the HEp-2 cell nucleus. RUDY assays have been reported to have lower sensitivities than RUDY IFA for systemic autoimmune rheumatic diseases (SARD). Negative results do not necessarily rule out SARD. Performed By: [facility] [employer] [address] [place] [id number] Special Education Math Teacher: Wiliam Samuels MD, PhD CLIA Number: [id number] Blood BLOOD SPECIMEN / Unknown Lab Venipuncture / Unknown 11/11/2024 1:28 PM CDT 11/11/2024 1:30 PM CDT Adarsh Menendez MD LAB - CHEMISTRY ORDERABLES Final Result [facility]) [address] * GLOMERULAR BASE MEMBRANE ANTIBODY IGG (11/11/2024 1:28 PM CDT) GBM Antibody IgG (EU) 0 0 - 19 AU/mL 11/13/2024 11:53 AM CDT [facility] [employer] ([facility]) Comment: INTERPRETIVE INFORMATION: GBM Ab, IgG by Multiplex Bead Assay 19 AU/mL or Less ......... Negative 20-25 AU/mL .............. Equivocal 26 AU/mL or Greater ...... Positive The presence of anti-glomerular basement membrane (GBM) antibodies by Multiplex Bead Assay may aid in the diagnosis of Goodpasture syndrome. False positive results may occur due to reactivity against other chains of type IV collagen. If Multiplex Bead Assay is negative but there is a strong suspicion for disease, renal biopsy may be indicated. A renal biopsy may also be essential in suspected Goodpasture disease with renal involvement, allowing diagnostic confirmation and assessment of renal prognosis. Performed By: [facility] [address] [place] [address] Special Education Math Teacher: Wiliam Samuels MD, PhD CLIA Number: [id number] Blood BLOOD SPECIMEN / Unknown Lab Venipuncture / Unknown 11/11/2024 1:28 PM CDT 11/11/2024 1:30 PM CDT HarrisonAndriy Menendez MD LAB - CHEMISTRY ORDERABLES Final Result [facility] [employer] ([facility]) [address] * MPO/CO 3 AUTOANTIBODIES PANEL (11/11/2024 1:28 PM CDT) Serine Proteinase 3 IgG 0 0 - 19 AU/mL 11/14/2024 1:58 PM CDT [facility] [employer] ([facility]) Comment: INTERPRETIVE INFORMATION: Serine Proteinase 3, IgG 19 AU/mL or Less ........ Negative 20-25 AU/mL ............. Equivocal 26 AU/mL or Greater ..... Positive Approximately 85% of patients with a C-ANCA pattern by IFA have antibodies specific for PR3. Performed By: [facility] [employer] [address] [place] [address] Special Education Math Teacher: Wiliam Samuels MD, PhD CLIA Number: [id number] Myeloperoxidase Antibody 0 0 - 19 AU/mL 11/14/2024 1:58 PM CDT [facility] ([facility]) Comment: INTERPRETIVE INFORMATION: Myeloperoxidase Abs, IgG 19 AU/mL or Less ......... Negative 20-25 AU/mL .............. Equivocal 26 AU/mL or Greater ...... Positive Approximately 90% of patients with a P-ANCA pattern by IFA have antibodies specific for MPO. Blood BLOOD SPECIMEN / Unknown Lab Venipuncture / Unknown 11/11/2024 1:28 PM CDT 11/11/2024 1:30 PM CDT [facility] MD LAB - CHEMISTRY ORDERABLES Final Result [facility]) [address] [place] [address], [facility] * (ABNORMAL) KAPPA/LAMBDA LITE CHAIN FREE PANEL (11/11/2024 1:28 PM CDT) Woodruff Quant Free Light Chain 71.32(H) 3.30 - 19.40 mg/L 11/13/2024 4:43 AM CDT [facility] ([facility]) Comment: INTERPRETIVE INFORMATION: Woodruff Qnt Free Light Chains Undetected antigen excess is a rare event but cannot be excluded. Free light chain results should always be interpreted in conjunction with other clinical and laboratory findings. Lambda Free Light Chain Quantitative 95.20(H) 5.71 - 26.30 mg/L 11/13/2024 4:43 AM CDT [facility] [employer] ([facility]) Comment: INTERPRETIVE INFORMATION: Lambda Qnt Free Light Chains Undetected antigen excess is a rare event but cannot be excluded. Free light chain results should always be interpreted in conjunction with other clinical and laboratory findings. Woodruff/Lambda Free Light Chain ratio 0.75 0.26 - 1.65 11/13/2024 4:43 AM CDT [facility] ([facility]) Comment: Performed By: [facility] [address] [place] [address] Special Education Math Teacher: Wiliam Samuels MD, PhD CLIA Number: [id number] Blood BLOOD SPECIMEN / Unknown Lab Venipuncture / Unknown 11/11/2024 1:28 PM CDT 11/11/2024 1:30 PM CDT Adarsh Menendez MD LAB - CHEMISTRY ORDERABLES Final Result Performing Organization Address City/[facility] Co de Phone Number [facility]) [address] [place], [place] [address] * PT-INR (11/11/2024 1:28 PM CDT) PT 14.4 12.1 - 14.8 Seconds 11/11/2024 1:58 PM CDT [facility] INR 1.1 See Comment 11/11/2024 1:58 PM CDT [facility] Comment:The suggested therap eutic range for standard coumadin (warfarin) therapy is an INR of 2.0-3.0. For high-risk patients (Mechanical Mitral Valve Prosthesis, etc.), the suggested prophylactic therapeutic range is an INR of 2.5-3.5. Blood BLOOD SPECIMEN / Unknown Lab Venipuncture / Unknown 11/11/2024 1:28 PM CDT 11/11/2024 1:30 PM CDT Adarsh Menendez MD LAB - COAGULATION ORDERABLES Fin al Result [facility] [address] [place] [address], [facility] [phone] * COMPLEMENT C4 (11/11/2024 1:28 PM CDT) Complement C4 35 15 - 57 mg/dL 11/11/2024 2:02 PM CDT [facility] Blood BLOOD SPECIMEN / Unknown Lab Venipuncture / Unknown 11/11/2024 1:28 PM CDT 11/11/2024 1:35 PM CDT us Adarsh Menendez MD LAB - SEROLOGY ORDERABLES Final Result [facility] [address] [place] [address], [facility] [phone] * (ABNORMAL) RENAL FUNCTION PANEL (11/11/2024 1:28 PM CDT) Only the most recent of2 resultswithin the time period is included. BUN 39(H) 7 - 26 mg/dL 11/11/2024 2:[address] [facility] Creatinine 2.08(H) 0.56 - 0.96 mg/dL 11/11/2024 2:[address] [facility] Sodium 140 136 - 145 mmol/L 11/11/2024 2:[address] [facility] Potassium 4.7(H) 3.5 - 4.5 mmol/L 11/11/2024 2:[address] [facility] Chloride 107 98 - 107 mmol/L 11/11/2024 2:[address] [facility] CO2 29 22 - 29 mmol/L 11/11/2024 2:[address] [facility] Glucose 94 70 - 99 mg/dL 11/11/2024 2:[address] [facility] Albumin 3.1(L) 3.4 - 5.0 g/dL 11/11/2024 2:[address] [facility] Calcium 8.4 8.4 - 10.2 mg/dL 11/11/2024 2:[address] [facility] Phosphorus 4.6 2.9 - 5.1 mg/dL 11/11/2024 2:[address] [facility] Anion Gap 4(L) 6 - 16 11/11/2024 2:[address] [facility] BUN/Creatinine Ratio 19 7 - 23 11/11/2024 2:[address] [facility] Osmolality Calculated 299(H) 275 - 295 mOsm/kg 11/11/2024 2:[address] [facility] eGFR by CKD-EPI 25(L) >=90 mL/min/1.7 3 m2 11/11/2024 2:02 PM CDT [facility] Comment:Estimated Glomerular Filtration Rate (eGFR) calculated using the CKD-EPI Creatinine Equation (2020), per the National Kidney Foundation and [employer] recommendations. Blood BLOOD SPECIMEN / Unknown Lab Venipuncture / Unknown 11/11/2024 1:28 PM CDT 11/11/2024 1:35 PM CDT Adarsh Menendez MD LAB - CHEMISTRY ORDERABLES Final Result Performing Organization Address City/[facility]/ZIP Co de Phone Number [address] [address], [place] [phone] * HEPATITIS B SURFACE ANTIGEN W RFLX CONFIRMATION (11/11/2024 1:28 PM CDT) Hepatitis B Virus Surface Antigen Non-reacti ve Non-reacti ve 11/11/2024 2:33 PM CDT [facility] Blood BLOOD SPECIMEN / Unknown Lab Venipuncture / Unknown 11/11/2024 1:28 PM CDT 11/11/2024 1:30 PM CDT Adarsh Menendez MD LAB - CHEMISTRY ORDERABLES Final Result Performing Organization Address [facility]/ZIP Co de Phone Number [address] [address], [place] [phone] * (ABNORMAL) PROTEIN ELECTROPHORESIS BLOOD (11/11/2024 1:28 PM CDT) Only the most recent of3 resultswithin the time period is included. Interpretation Serum PE Abnormal Pattern(A) Normal Pattern 11/14/2024 6:00 PM CDT [facility] Comment: Serum capillary electrophoresis shows characteristic bands corresponding to albumin, alpha and beta globulins and polyclonal immunoglobulins. There is a band of restricted electrophoretic mobility in the gamma region previously identified as an IgG lambda monoclonal immunoglobulin. Mello Carmona PhD, [facility] Clinical Distance Learning Program Coordinator hadoop administrator *The electrophoresis pattern and the interpretation have been reviewed and verified by the teaching physician. Protein Total 6.3 6.0 - 8.3 g/dL 11/14/2024 6:00 PM T [facility] Albumin 3.2(L) 3.3 - 5.6 g/dL 11/14/2024 6:00 PM T [facility] Alpha-1 Globulins 0.4 0.2 - 0.4 g/dL 11/14/2024 6:00 PM T [facility] Alpha-2 Globulins 0.9 0.5 - 1.0 g/dL 11/14/2024 6:00 PM [facility] Beta Globulins 0.8 0.6 - 1.1 g/dL 11/14/2024 6:00 PM [facility] Gamma Globulins 1.0 0.6 - 1.6 g/dL 11/14/2024 6:00 PM T [facility] Monoclonal Component(s) 0.4(H) None Detected g/dL 11/14/2024 6:[address] [facility] Blood BLOOD SPECIMEN / Unknown Lab Venipuncture / Unknown 11/11/2024 1:28 PM CDT 11/11/2024 1:30 PM CDT Adarsh Menendez MD LAB - CHEMISTRY ORDERABLES Final Result [facility] [address] [place] [address], [facility] [phone] * HEPATITIS C ANTIBODY (11/11/2024 1:28 PM CDT) Hepatitis C Antibody Non-react reji Non-reac tive 11/11/2024 2:33 PM CDT [facility] Comment:Hepatitis C Antibody screen indicates no serologic evidence of past or current infection with Hepatitis C Virus. Patients with unexplained liver disease who are immunocompromised or suspected of having acute Hepatitis C infection may benefit from Nucleic Acid Test (LUMA) for Hepatitis C Viral RNA to confirm Hepatitis C status. Blood BLOOD SPECIMEN / Unknown Lab Venipuncture / Unknown 11/11/2024 1:28 PM CDT 11/11/2024 1:30 PM CDT us Adarsh Menendez MD LAB - CHEMISTRY ORDERABLES Final Result [address] [address], [place] [phone] * COMPLEMENT C3 (11/11/2024 1:28 PM CDT) Complement C3 144 82 - 193 mg/dL 11/11/2024 2:02 PM CDT [facility] Blood BLOOD SPECIMEN / Unknown Lab Venipuncture / Unknown 11/11/2024 1:28 PM CDT 11/11/2024 1:35 PM CDT us Adarsh Menendez MD LAB - CHEMISTRY ORDERABLES Final Result Performing Organization Address [facility]/ZIP Co de Phone Number [address] [address], [place] [phone] * (ABNORMAL) URINALYSIS REFLEX TO MICROSCOPIC NO CULTURE (11/02/2024 2:26 PM CDT) Color UA Yellow Yellow, Straw 11/02/2024 2:54 PM CDT [facility] Clarity UA Clear Clear 11/02/2024 2:54 PM CDT [facility] Glucose UA Normal Normal 11/02/2024 2:54 PM CDT [facility] Bilirubin UA Negative Negative 11/02/2024 2:54 PM CDT [facility] Ketone UA Negative Negative 11/02/2024 2:54 PM CDT [facility] Specific [place] UA 1.015 1.005 - 1.030 11/02/2024 2:54 PM CDT [facility] Blood UA 1+(A) Negative 11/02/2024 2:54 PM CDT [facility] pH UA 5.5 5.0 - 8.0 11/02/2024 2:54 PM CDT [facility] Protein UA 2+(A) Negative 11/02/2024 2:54 PM CDT [facility] Urobilinogen UA Normal Normal mg/dL 025 2:54 PM CDT [facility] Nitrite UA Negative Negative 11/02/2024 2:54 PM CDT [facility] Leukocyte Esterase UA Negative Negative 11/02/2024 2:54 PM CDT [facility] RBC UA 3-5 0 - 5 # /hpf 11/02/2024 2:54 PM CDT [facility] WBC UA 0-5 0 - 5 # /hpf 11/02/2024 2:54 PM CDT [facility] Bacteria UA None Seen None Seen 11/02/2024 2:54 PM CDT [facility] Squamous Epithelial Cells 0-2 0 - 5 /hpf 11/02/2024 2:54 PM CDT [facility] Mucus UA 1+ /LPF 11/02/2024 2:54 PM CDT [facility] Hyaline Casts 3-5(A) 0 - 2 /LPF 11/02/2024 2:54 PM CDT [facility] Urine URINE SPECIMEN OBTAINED BY CLEAN CATCH PROCEDURE / Unknown Collection / Unknown 11/02/2024 2:26 PM CDT 11/02/2024 2:41 PM CDT us Adarsh Menendez MD LAB - URINALYSIS ORDERABLES Kathleen l Result [address] [address], [facility] [phone] * PTH INTACT W/O CALCIUM (11/02/2024 1:21 PM CDT) PTH Intact 76.9 8.0 - 77.0 pg/mL 11/02/2024 2:28 PM CDT [facility] Blood BLOOD SPECIMEN / Unknown Lab Venipuncture / Unknown 11/02/2024 1:21 PM CDT 11/02/2024 1:57 PM CDT Adarsh Menendez MD LAB - CHEMISTRY ORDERABLES Final Result Performing Organization Address City/[facility]/ZIP Co de Phone Number [address] [address], [facility] [phone] * TRANSFERRIN (11/02/2024 1:21 PM CDT) Pathologist [facility] [place] Transferrin 231 174 - 382 mg/dL 11/02/2024 2:32 PM CDT [facility] Blood BLOOD SPECIMEN / Unknown Lab Venipuncture / Unknown 11/02/2024 1:21 PM CDT 11/02/2024 1:43 PM CDT Adarsh Menendez MD LAB - CHEMISTRY ORDERABLES Final Result [address] [address], [place] [phone] * VITAMIN D 25-HYDROXY (11/02/2024 1:21 PM CDT) [facility] Vitamin D, 25 Hydroxy 49.9 30.0 - 80.0 ng/mL 11/02/2024 2:46 PM CDT [facility] Comment: The recommendations for 25-Hydroxy Vitamin [...] SPECIMEN / Unknown Lab Venipuncture / Unknown 11/02/2024 1:21 PM CDT 11/02/2024 2:01 PM CDT Adarsh Menendez MD LAB - CHEMISTRY ORDERABLES Final Result Performing Organization Address City/[facility]/ZIP Co de Phone Number [address] [address], [place] [phone] * (ABNORMAL) CBC WITH DIFFERENTIAL (11/02/2024 1:21 PM CDT) Only the most recent of2 resultswithin the time period is included. [facility] WBC 10.4 4.0 - 10.7 x10E9/L 11/02/2024 2:[address] [facility] RBC Count 3.98 3.90 - 5.20 x10E12/L 11/02/2024 2:[address] [facility] Hemoglobin 11.8(L) 11.9 - 15.8 g/dL 11/02/2024 2:[address] [facility] Hematocrit 36.3 34.8 - 46.1 % 11/02/2024 2:[address] [facility] MCV 91.2 80.0 - 98.0 fL 11/02/2024 2:[address] [facility] MCH 29.6 26.7 - 33.6 pg 11/02/2024 2:[address] [facility] MCHC 32.5 31.7 - 36.3 g/dL 11/02/2024 2:[address] [facility] RDW-CV 14.0 11.3 - 14.8 % 11/02/2024 2:[address] [facility] Platelet Count 166 150 - 420 x10E9/L 11/02/2024 2:[address] [facility] MPV 12.0(H) 7.8 - 11.4 fL 11/02/2024 2:[address] [facility] Neutrophil % 71.7 41.0 - 74.0 % 11/02/2024 2:[address] [facility] Lymphocyte % 17.1 17.0 - 47.0 % 11/02/2024 2:[address] [facility] Monocyte % 6.5 3.0 - 11.0 % 11/02/2024 2:[address] [facility] Eosinophil % 3.8 0.0 - 7.0 % 11/02/2024 2:[address] [facility] Basophil % 0.4 0.0 - 1.6 % 11/02/2024 2:[address] [facility] Immature Granulocytes % 0.5 0.0 - 1.0 % 11/02/2024 2:[address] [facility] Neutrophil Absolute 7.46 1.60 - 7.50 x10E9/L 11/02/2024 2:[address] [facility] Lymphocyte Absolute 1.77 1.00 - 4.40 x10E9/L 11/02/2024 2:17 PM CDT [facility] Monocyte Absolute 0.67 0.15 - 1.00 x10E9/L 11/02/2024 2:17 PM CDT [facility] Eosinophil Absolute 0.39 0.00 - 0.60 x10E9/L 11/02/2024 2:17 PM CDT [facility] Basophil Absolute 0.04 0.00 - 0.13 x10E9/L 11/02/2024 2:17 PM CDT [facility] Blood BLOOD SPECIMEN / Unknown Lab Venipuncture / Unknown 11/02/2024 1:21 PM CDT 11/02/2024 2:01 PM CDT us Adarsh Menendez MD LAB - HEMATOLOGY ORDERABLES Kathleen l Result [address] [address], [facility] [phone] * MAGNESIUM BLOOD (11/02/2024 1:21 PM CDT) Magnesium 1.9 1.6 - 2.6 mg/dL 11/02/2024 2:27 PM [facility]T [facility] Blood BLOOD SPECIMEN / Unknown Lab Venipuncture / Unknown 11/02/2024 1:21 PM CDT 11/02/2024 2:01 PM CDT us Adarsh Menendez MD LAB - CHEMISTRY ORDERABLES Final Result [address] [address], [place] [phone] * IRON BLOOD (11/02/2024 1:21 PM CDT) Iron 67 40 - 150 ug/dL 11/02/2024 2:32 PM CDT [facility] Blood BLOOD SPECIMEN / Unknown Lab Venipuncture / Unknown 11/02/2024 1:21 PM CDT 11/02/2024 1:43 PM CDT us Adarsh Menendez MD LAB - CHEMISTRY ORDERABLES Final Result Performing Organization Address City/[facility]/ZIP Co de Phone Number [address] [address], [facility] [phone] * FERRITIN (11/02/2024 1:21 PM CDT) Ferritin 130 13 - 204 ng/mL 11/02/2024 2:49 PM CDT [facility] Blood BLOOD SPECIMEN / Unknown Lab Venipuncture / Unknown 11/02/2024 1:21 PM CDT 11/02/2024 1:43 PM CDT us Adarsh Menendez MD LAB - CHEMISTRY ORDERABLES Final Result Performing Organization Address [facility] Co de Phone Number [address] [address], [facility] [phone] * CO LARYNGOSCOPY,FLEX FIBER,DIAGNOSTIC (10/24/2024 4:34 PM CDT) Narrative Rufino Toscano MD - 10/24/2024 4:34 PM CDT Rufino Toscano MD 10/24/2024 4:35 PM Laryngoscopy Procedure Note Findings: Vocal cord motion is intact. No evidence of cancer. Anesthesia: Lidocaine and Neosynephrine Endoscopy Type: Flexible Djaxw-Argywllbeuugrn-Yxdutfxgwpfe Procedure Details: Informed consent was obtained. The patient was placed in the sitting position. After topical anesthesia and decongestion, the 4 mm fiberoptic flexible laryngoscope was passed. The nasal cavities, nasopharynx, oropharynx, hypopharynx, and larynx were all examined. Vocal cords were examined during respiration and phonation. There was no blood loss. The patient tolerated procedure well. Complications: None Rufino Toscano MD us Rufino Toscano MD PROCEDURE/MINOR SURGICAL OR DERABLES Final Result * AUDIOLOGY/TYMPANOMETRY ORDER (10/24/2024 3:21 PM CDT) Narrative Ness Burton AuD - 10/24/2024 3:21 PM CDT History: Eduarda Yusuf arrived for a hearing evaluation. Patient has a history of bilateral profound SNHL and has a cochlear implant for the LT ear. She currently uses a [employer] N7 processor in the LT ear. She transferred care to our office approximately one year ago. She comes in today due to ear pain in both ears. Results: Puretone air/bone conduction testing not performed due to known profound hearing loss. Immittance measures revealed a Type A tympanogram in the right ear, indicating normal middle ear function. Results for the left ear revealed a Type A tympanogram, indicating normal middle ear function in that ear. These results were discussed in detail with the patient and all pertinent questions were answered. Recommendations: 1) ENT consult. 2) Re check per medical recommendation, annually, or if a change in hearing is suspected. 3) Continue CI use. Schedule yearly CIF appointment. She is asking about a possible upgrade for her processor. Milton Crowder. [facility] Clinical Labor And Delivery Registered Nurse [facility]ol[facility] [address] [place] [address] ([facility]) [place] [address] Ness Rose AUDIOLOGY SERVICES ORDERABLES F inal Result * (ABNORMAL) AGUSTINA SERUM (09/15/2024 3:08 PM CDT) Immunofixation Serum Abnormal Pattern(A) Normal Pattern 09/20/2024 12:48 PM CDT [facility] Comment: Serum immunosubtraction identifies an IgG lambda monoclonal immunoglobulin migrating in the gamma region. Radha Rubio PhD, DAB(CC,TC) Clinical Distance Learning Program Coordinator and Orthodontic Technician Assistant hadoop administrator *The electrophoresis pattern and the interpretation have been reviewed and verified by the teaching physician. Blood BLOOD SPECIMEN / Unknown Lab Venipuncture / Unknown 09/15/2024 3:08 PM CDT 09/15/2024 3:22 PM CDT Aubree Thomas MD LAB - CHEMISTRY ORDERABL ES Final Result [facility] [address] [place] [address], [facility] [phone] * (ABNORMAL) COMPREHENSIVE METABOLIC PANEL (09/15/2024 3:06 PM [facility]) BUN 39(H) 7 - 26 mg/dL 09/15/2024 3:[address] [facility] Creatinine 1.86(H) 0.56 - 0.96 mg/dL 09/15/2024 3:[address] [facility] Sodium 142 136 - 145 mmol/L 09/15/2024 3:[address] [facility] Potassium 4.3 3.5 - 4.5 mmol/L 09/15/2024 3:[address] [facility] Chloride 108(H) 98 - 107 mmol/L 09/15/2024 3:[address] [facility] CO2 27 22 - 29 mmol/L 09/15/2024 3:[address] [facility] Glucose 113(H) 70 - 99 mg/dL 09/15/2024 3:[address] [facility] Calcium 8.5 8.4 - 10.2 mg/dL 09/15/2024 3:[address] [facility] Protein Total 6.8 6.0 - 8.3 g/dL 09/15/2024 3:[address] [facility] Albumin 3.1(L) 3.4 - 5.0 g/dL 09/15/2024 3:[address] [facility] Bilirubin Total 0.4 0.2 - 1.2 mg/dL 09/15/2024 3:[address] [facility] Alkaline Phosphatase 90 40 - 150 U/L 09/15/2024 3:[address] [facility] ALT 13 5 - 55 U/L 09/15/2024 3:[address] [facility] AST 18 5 - 34 U/L 09/15/2024 3:[address] [facility] Anion Gap 7 6 - 16 09/15/2024 3:[address] [facility] BUN/Creatinine Ratio 21 7 - 23 09/15/2024 3:[address] [facility] Osmolality Calculated 304(H) 275 - 295 mOsm/kg 09/15/2024 3:53 PM CDT [facility] Albumin/Globulin Ratio 0.8(L) 1.1 - 2.3 09/15/2024 3:53 PM CDT [facility] eGFR by CKD-EPI 29(L) >=90 mL/min/1.7 3 m2 09/15/2024 3:53 PM CDT [facility] Blood BLOOD SPECIMEN / Unknown Lab Venipuncture / Unknown 09/15/2024 3:06 PM CDT 09/15/2024 3:22 PM CDT Narrative [facility] - 09/15/2024 3:53 PM CDT Estimated Glomerular Filtration Rate (eGFR) calculated using the CKD-EPI Creatinine Equation (2020), per the National Kidney Foundation and [place] [employer] of Nephrology recommendations. us Aubree Thomas MD LAB - CHEMISTRY ORDERABL ES Final Result Performing Organization Address City/[facility]/ZIP Co de Phone Number [address] [address], [facility] [phone] * IGM BLOOD (09/15/2024 3:06 PM CDT) IgM 125 37 - 286 mg/dL 09/15/2024 3:48 PM CDT [facility] Blood BLOOD SPECIMEN / Unknown Lab Venipuncture / Unknown 09/15/2024 3:06 PM CDT 09/15/2024 3:21 PM CDT us Aubree Thomas MD LAB - CHEMISTRY ORDERABL ES Final Result [address] [address], [facility] [phone] * IGG BLOOD (09/15/2024 3:06 PM CDT) IgG 1,300 767 - 1,590 mg/dL 09/15/2024 3:48 PM [facility]T [facility] Blood BLOOD SPECIMEN / Unknown Lab Venipuncture / Unknown 09/15/2024 3:06 PM CDT 09/15/2024 3:21 PM CDT us Aubree Thomas MD LAB - CHEMISTRY ORDERABL ES Final Result Performing Organization Address City/[facility]/ZIP Co de Phone Number [address] [address], [place] [phone] * IGA BLOOD (09/15/2024 3:06 PM CDT) IgA 214 61 - 356 mg/dL 09/15/2024 3:48 PM CDT [facility] Blood BLOOD SPECIMEN / Unknown Lab Venipuncture / Unknown 09/15/2024 3:06 PM CDT 09/15/2024 3:21 PM CDT Aubree Thomas MD LAB - CHEMISTRY ORDERABL ES Final Result Performing Organization Address [facility] Co de Phone Number [address] [address], [place] [phone] from Last 3 Months Insurance MEDICAID - [place] MEDICARE Advance Directives * Full Code (Latest Code Status on File) Date Activated Date Inactivated Comments 08/17/2023 9:20 AM 08/17/2023 2:23 PM * Full Code Date Activated Date Inactivated Comments 08/17/2023 9:06 AM 08/17/2023 9:20 AM * Full Code Date Activated Date Inactivated Comments 07/01/2022 12:41 PM 07/01/2022 3:54 PM Care Teams Roller Presser Operator Relationship Specialty Start Date End Date Saul Marcelino MD [address] [place] [phone] PCP - General Family Medicine 04/20/24 Francia Hammonds MD [address] [facility] 3[facility] [place] [address] Coal Tower Operator Nephrology 11/24/24 Andre Mccann MD [address] [place] [phone] Hematology and Oncology 11/24/24 [place] [address] [place] [address] Hematology and Oncology 11/24/24 [place] [address] [place] [address] Leaf Coverer/Oncologist Hematology and Oncology 11/24/24 Joan Wood MD [address] [place] [address] Leaf Coverer/Oncologist Hematology and Oncology 11/24/24 Lyudmila Bangura MD [facility] [address] Physician Hematology and Oncology 11/24/24 Gloria Alatorre MD [address] [place] [phone] Physician Hematology and Oncology 11/24/24 Mony Zaldivar, PharmD 11/24/24 Shirley Barahona, PharmD Pharmacist 11/24/24 Anastacia Garces RN Registered Nurse 11/24/24 Tabatha Solorzano 11/24/24 Ness Ortiz 11/24/24 Grisel Dobbins, PYTHON DEVELOPER-SAMPLE EXAMINER [facility] [place] [address] Nurse Practitioner Nurse Practitioner 11/24/24 Nannette Joshi, RN Registered Nurse 11/24/24 Sylwia Lovelace LCSW [address] [place] [address] Photoengraving Printer 11/24/24
--- OUTSIDE RECORDS SUMMARY | 2024-12-13 17:22 | XMS_ITS | Encounter Summary ---
Author Organization [facility] Address [facility]3 [place] [address] Care Team Providers Care [employer] Silver[employer] Salesperson Name Role Phone Timmy Baldwin MD Primary Care Provider [phone] Dontae Min DO Primary Care Provider [phone] Dontae Min DO Primary Care Provider [phone] Saul Marcelino MD Primary Care Provider + [phone] None, Physician Primary Care Provider Unavailabl e Saul Marcelino MD Primary Care Provider [phone] Francia Hammonds MD Unavailable [phone] Andre Mccann MD Unavailable [phone] Ana Andersen MD Unavailable [phone] Vincent Sandra MD Unavailable Joan Wood MD Unavailable Lyudmila Bangura MD Unavailable Gloria Alatorre MD Unavailable Mony Zaldivar PharmD Unavailable Unavaila Shirley Barillas PharmD Unavailable Unavailable Anastacia Garces RN Unavailable Unavailable Tabatha Solorzano Unavailable Unavailable Ness Ortiz Unavailable Sarah Grisel Singh PILE DRIVING SUPERINTENDENT-ASSEMBLER HANDBAGS Unavailable Nannette Joshi RN Unavailable Unavailable Sylwia LovelaceW Unavailable Unavailab le Encounter Details Date Type Department Care Team (Latest Contact Info) Description 05/14/2022 Ambulatory Consult [facility] TXP NOE CSM [address] [place] [phone] Shelley Ortega, RN Cystadenoma, hepatobiliary ; Cystic disease of liver; [...] on file Legal Sex 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 PERIPHERAL EQUIPMENT OPERATOR Gender Identity Not on file Sexual Orientation Not on file COVID-19 Exposure Response Date Recorded In the last 10 days, have yo u been in contact with someone who was confirmed or suspected to have Coronavirus/COVID-19? No / Unsure 04/24/2022 1:12 PM PERIPHERAL EQUIPMENT OPERATOR documented as of this encounter Plan of Treatment Upcoming Encounters Date Type Department Care Team (Late st Contact Info) Description 01/04/2025 11:00 AM CDT Ancillary Procedure [facility] - Echosonography [address] [facility] [place] [address] 01/05/2025 8:30 AM CDT Office Visit [facility] - Nephrology [address] [place] [phone] Francia Hammonds MD [address] [facility] [address] [place] [address] 02/06/2025 2:00 PM PERIPHERAL EQUIPMENT OPERATOR Appointment [facility] CAT SCAN [address] [place] [phone] Beau Myrick MD [address] [facility] 2L DIV OF PULMONARY/[place] [address] 03/16/2025 2:00 PM PERIPHERAL EQUIPMENT OPERATOR Office Visit [facility] - Neurology [address] [facility], [place] [phone] Gary Virgen APRN-ASSEMBLER HANDBAGS [address] [place] [address] 03/21/2025 11:00 AM PERIPHERAL EQUIPMENT OPERATOR Office Visit [facility] - Sleep Services [address] [facility] [address] [place] [address] Maura Simmons APNP-ASSEMBLER HANDBAGS [address] [facility] [address] [place] [address] 06/07/2025 11:00 AM PERIPHERAL EQUIPMENT OPERATOR Office Visit [facility] - Cardiology [address] [facility], [facility] [address] [place] [address] Andrés Kaye MD [address] [facility] [address] [place] [address] 09/13/2025 1:45 PM CDT Appointment [facility] CANCER CARE DRAWSTATION [address] [facility], 2nd [place] [address] 09/13/2025 2:00 PM CDT Office Visit [facility] - Hematology/Oncology [address] [place] [phone] Aubree Thomas MD [address] [place] [phone] documented as of this encounter Goals Goal [...] (HCC) documented in this encounter Care Teams [employer] Silver[employer] Salesperson Relationship Specialty [place] [address] [address] PCP - General 05/12/22 06/03/22 Dontae Min DO [address] [address] PCP - General 06/04/22 06/09/22 Dontae Min DO [address] [facility] [address] [place] [address] PCP - General 06/10/22 09/16/22 Saul Marcelino MD [address] [place] [address] PCP - General Family Medicine 09/17/22 02/09/24 None, Physician [facility] [place] [address] PCP - General 02/10/24 04/19/24 Saul Marcelino MD [address] [place] [address] PCP - General Family Medicine 04/20/24 [place] [address] [place] [address] [place] [address] Yarn Weigher Nephrology 11/24/24 Andre Mccann MD [address] [place] [phone] Hematology and Oncology 11/24/24 [place] [address] [place] [address] Hematology and Oncology 11/24/24 Vincent Sandra MD [address] [place] [address] Director Of Corporate Sales/Oncologist Hematology and Oncology 11/24/24 Joan Wood MD [address] [place] [address] Director Of Corporate Sales/Oncologist Hematology and Oncology 11/24/24 Lyudmila Bangura MD [facility] [address] Physician Hematology and Oncology 11/24/24 [place] [address] [place] [phone] Physician Hematology and Oncology 11/24/24 Mony Zaldivar, PharmD 11/24/24 Shirley Barahona, PharmD Pharmacist 11/24/24 Anastacia Garces RN Registered Nurse 11/24/24 Tabatha Solorzano 11/24/24 Ness Ortiz 11/24/24 Grisel Dobbins, INDRA-ASSEMBLER HANDBAGS [facility] [place] [address] Nurse Practitioner Nurse Practitioner 11/24/24 Nannette Joshi, RN Registered Nurse 11/24/24 Sylwia Lovelace, HOTEL AND DINING ROOM CASHIER [address] [place] [address] Non Food Receiving Clerk 11/24/24 documented as of this encounter
--- NOTE | 2024-12-13 17:24 | ED.FALL ---
HPI - Fall General Chief Complaint: Fall Stated Complaint: fall Time Seen by Provider: 12/13/24 17:10 Source: patient Mode of arrival: wheelchair Limitations: no limitations History of Present Illness HPI Narrative: This is a 61-year-old female that presents to the emergency department after a fall 2 nights ago. Reports she felt lightheaded and passed out. She did hit her head. Reports history of dizziness due to Meniere's disease. Reports a laceration inside her upper lip. Reports bilateral knee pain. Denies vision changes, vomiting, chest pain, shortness of breath, focal numbness or weakness. Related Data Home Medications ?Medication ?Instructions ?Recorded ?Confirmed ?Last Taken ?Type aspirin 81 mg tablet,delayed 81 mg PO DAILY 05/02/21 02/19/24 11/17/23 08:00 History release sertraline 100 mg tablet 150 mg PO DAILY 08/28/22 02/19/24 11/17/23 08:00 History isosorbide mononitrate 60 mg 120 mg PO DAILY 10/29/22 02/19/24 11/17/23 08:00 History tablet,extended release 24 hr deutetrabenazine 12 mg tablet 24 mg PO BID 03/02/23 02/19/24 11/17/23 08:00 History (Austedo) albuterol sulfate 90 mcg/actuation 2 puff inhalation Q4H PRN 10/13/23 02/19/24 Unknown History aerosol inhaler Shortness Of Breath amantadine HCl 100 mg capsule 100 mg PO QHS 10/13/23 02/19/24 11/16/23 21:00 History atorvastatin 80 mg tablet 80 mg PO QHS 10/13/23 02/19/24 11/16/23 21:00 History carvedilol 25 mg tablet 25 mg PO Q12H 10/13/23 02/19/24 11/17/23 08:00 History clopidogrel 75 mg tablet 75 mg PO DAILY 10/13/23 02/19/24 11/17/23 08:00 History topiramate 25 mg tablet 50 mg PO Q12H 10/13/23 02/19/24 11/17/23 08:00 History trazodone 100 mg tablet 100 mg PO QHS PRN Sleep 10/13/23 02/19/24 11/16/23 21:00 History nitroglycerin 0.4 mg BYMOUTH PRN PRN Angina 11/17/23 02/19/24 Unknown History acetaminophen 500 mg tablet 500 mg PO Q6H PRN 12/01/23 02/19/24 Unknown History (Tylenol Extra Strength) loratadine 10 mg tablet mg PO 12/01/23 02/19/24 Unknown History Allergies Allergy/AdvReac Type Severity Reaction Status Date / Time adhesive tape Allergy Mild rash Verified 12/13/24 17:05 tetanus immune globulin Allergy Mild HIVES Verified 12/13/24 17:05 cyclobenzaprine Allergy Unknown TINGLING Verified 12/13/24 17:05 SENSATION IN EXTREMITIES fluoxetine Allergy Unknown Rash,Swelli Verified 12/13/24 17:05 ng tetanus and diphtheria Allergy Unknown Swelling Verified 12/13/24 17:05 toxoids Tetanus Vaccines and Toxoid Allergy Unknown rash Verified 12/13/24 17:05 bupropion (From Wellbutrin) Allergy dizzy Verified 12/13/24 17:05 Review of Systems Review of Systems: All systems reviewed & are unremarkable except as noted in HPI and below PMFSH Past Medical History Medical History Coronary artery disease Obstructive sleep apnea on CPAP Cancer of left breast Coronary artery disease On home O2 at night Seronegative rheumatoid arthritis of both hands Tardive dyskinesia Lumbar degenerative disc disease Degenerative cervical disc Menieres disease Adenomatous colon polyp Gastroparesis Gastritis Parkinson disease Constipation Inflammatory arthritis Bipolar disorder, unspecified Chronic kidney disease, stage 3 (moderate) Chronic obstructive pulmonary disease, unspecified Essential (primary) hypertension Surgical History Surgical History History of bowel resection 10/17/23 Laparoscopic small bowel resection with anastomosis. Laparoscopic adhesiolysis with release of small bowel obstruction History of coronary artery stent placement stent placed 07/2023 History of breast surgery History of hernia surgery History of hysterectomy History of cholecystectomy History of liver biopsy Status post mastectomy Family History Family History Sibling Family history of malignant neoplasm Family history of diabetes mellitus in first degree relative Family history of lupus erythematosus Family history of malignant neoplasm of brain Family history of malignant neoplasm of breast Mother Family history of chronic obstructive pulmonary disease, Onset Age: 76 Patient's mother is Family history of emphysema Family history of malignant neoplasm of breast Father Family history of malignant neoplasm of esophagus, Onset Age: 54 Patient's father is Other Family history of cardiovascular disease Family history of malignant neoplasm of male breast Family history of obesity Social History Social History Social History: Surrogate medical decision maker: Saman Mendezd, friend. Code status: Full code. Smoking packs per day: 0.5 Smoking cigarettes per day: 10.0 Years smoked: 50 Smoking pack-years: 25.00 Smoking status: Current every day smoker Second hand tobacco smoke exposure: Yes Alcohol intake: never Substance use: current Substance use type: marijuana Other substance usage details: DAILY Do You Feel Safe in your Home?: Yes Lack of Transportation: No Lack of Food: Sometimes True Current Housing: I Have Housing Concerned About Future Housing: No Difficulty Paying Gas/Electric Bills: YES Difficulty Paying for Meds: YES Currently Unemployed: No Education: Decline to Answer Difficulty w/ Childcare or Family Care: No Living arrangements: with family Spiritual care concerns: No Exam Narrative: GENERAL: Well-appearing, well-nourished, and in no acute distress. HEAD: Normocephalic. Linear laceration on the inner upper lip that appears to be healing EYES: PERRLA and EOMI. ENT: Nares clear, no rhinorrhea or epistaxis. Mucous membranes moist. Oropharynx without tonsillar hypertrophy exudate or other lesions. Bilateral TMs pearly mcdaniel non-bulging NECK: Supple. No adenopathy or masses. CHEST: Clear to auscultation. No respiratory distress. No wheezes rales or rhonchi HEART: Regular rate and rhythm. No murmur heard. Normal peripheral pulses. ABDOMEN: Soft, nontender, nondistended, normal active bowel sounds. EXTREMITIES: Normal range of motion. No edema or obvious deformity. Mild bruising to the bilateral knees SKIN: Warm, dry, no rash. NEURO: No focal deficits. Alert and oriented x3. CN II-XII grossly intact PSYCH: Normal mood and affect Course Course Emergency Course: Patient updated on her workup and recommendation for admission Consultations Consultation #1: Spoke with hospitalist about patient and workup who accepts admission Date: 12/13/24 Vital Signs Vital signs: Vital Signs Temperature 98.4 F 12/13/24 16:43 Pulse Rate 52 L 12/13/24 16:43 Respiratory Rate 16 12/13/24 16:43 Blood Pressure 174/76 H 12/13/24 16:43 Pulse Oximetry 97 12/13/24 16:43 Temperature 97.6 F 12/13/24 17:02 Pulse Rate 50 L 12/13/24 18:26 Respiratory Rate 15 12/13/24 18:26 Blood Pressure 188/83 H 12/13/24 18:26 Pulse Oximetry 96 12/13/24 18:26 Oxygen Delivery Room Air 12/13/24 17:02 MDM - Fall MDM Narrative Medical decision making narrative: Patient presents emergency department after a fall/syncopal episode 2 nights ago with head injury. Her vitals are stable. Patient is bradycardic, which appears chronic. Although, her heart rate seems to largely be in the 50s looking at past records. She has been in the upper 40s today. Appears to be sinus bradycardia. Cbc without leukocytosis. Metabolic panel with evidence of acute kidney injury. Patient hydrated in the ER. Urine without evidence of infection. CT brain, facial bones, cervical spine without acute findings. Chest x-ray and bilateral knee x-rays without acute abnormalities. Patient updated on her workup and recommendation for admission. Spoke with hospitalist about patient and workup who accepts admission Differential Diagnosis Differential diagnosis: Likely syncope, concussion with loss of consciousness, concussion without loss of consciousness and other (Contusion, subdural hematoma, facial bone fracture, arrhythmia, bradycardia) Lab Data Attestation: I reviewed the patient's lab results. 12/13/24 17:28 12/13/24 17:28 Labs: Lab Results 12/13/24 12/13/24 Range/Units 17:28 18:29 WBC 8.6 (4.5-10.0) K/mm3 RBC 3.73 L (4.2-5.4) M/mm3 Hgb 11.2 L (12.0-15.0) g/dL Hct 35.5 L (37.0-47.0) % MCV 95.2 (80-100) fl MCH 30.0 (26-34) pg MCHC 31.5 L (32-36) g/dl RDW 13.6 (11.5-14.5) % Plt Count 177 (150-375) k/mm3 MPV 11.1 H (7.4-10.4) fl Immature Gran % (Auto) 0.3 (0-0.5) % Neut % (Auto) 67.2 (45.5-73.1) % Lymph % (Auto) 21.9 (18.3-44.2) % [place] % (Auto) 8.0 (2.6-8.5) % Eos % (Auto) 2.3 (0-4.4) % Baso % (Auto) 0.3 (0.2-1.2) % Lymph # (Auto) 1.88 (0.9-3.2) K/mm3 [place] # (Auto) 0.7 H (0.1-0.6) K/mm3 Eos # (Auto) 0.2 (0-0.3) K/mm3 Baso # (Auto) 0.0 (0.0-0.1) K/mm3 Abs Immat Gran (auto) 0.03 (0.00-0.031) K/mm3 Absolute Neuts (auto) 5.8 (1.3-6.7) K/mm3 Absolute Nucleated RBC 0.000 (0.0-0.012) K/mm3 Nucleated RBC % 0.0 (0.0-0.2) % Sodium 139 (137-145) mmol/L Potassium 4.3 (3.4-5.0) mmol/L Chloride 106 (98-107) mmol/L Carbon Dioxide 28 (22-30) mmol/L Anion Gap 5 (4-12) mmol/L BUN 42 H (7-17) mg/dL Creatinine 2.30 H (0.7-1.0) mg/dL Estim Creat Clear Calc 20 ml/min Estimated GFR 21 L (59 - ) Glucose 94 (65-110) mg/dL Calcium 8.5 (8.4-10.2) mg/dL Magnesium 2.2 (1.6-2.3) mg/dL Total Bilirubin 0.3 (0.2-1.3) mg/dL AST 28 (14-36) U/L ALT 13 (6-35) U/L Alkaline Phosphatase 95 (38-126) U/L Troponin I < 0.012 (0.000-0.034) ng/mL Total Protein 6.7 (6.3-8.2) g/dL Albumin 3.3 L (3.5-5.1) g/dL Urine Color Yellow (Yellow) Urine Appearance Clear (Clear) Urine pH 6.5 (5.0-9.0) Ur Specific [place] 1.016 (1.001-1.035) Urine Protein 3+ H (Negative) mg/dL Urine Glucose (UA) Negative (Negative) mg/dL Urine Ketones Negative (Negative) mg/dL Ur Blood (Man) 1+ H (Negative) Urine Nitrate Negative (Negative) Urine Bilirubin Negative (Negative) Urine Urobilinogen 1.0 (<2.0) mg/dL Leukocyte Esterase Rfl Negative (Negative) JACQUES/UL Urine RBC 6-10 H (0-2) /hpf Urine WBC 0-5 (0-3) /hpf Ur Squamous Epith Cells None seen (Few) /hpf Urine Bacteria None seen /hpf Urine Casts 3-5 Imaging Data Radiologist's impression: ITS Impressions Chest X-Ray 12/13/24 17:44 Impression: 1: No acute cardiopulmonary disease. Knee X-Ray 12/13/24 17:47 IMPRESSION: 1: NO ACUTE BONE OR JOINT ABNORMALITY IDENTIFIED. Knee X-Ray 12/13/24 17:48 Impression: 1: No acute bone or joint abnormality. Head CT 12/13/24 18:09 IMPRESSION: 1. No acute intracranial abnormality. Head/Cervical Spine/Facial Bones CT 12/13/24 18:11 IMPRESSION: 1. No acute abnormality of the facial bones or cervical spine. 2: Progression of severe cervical spondylosis with fusion at C5-7. ECG Data EKG #1: ECG completion date: 12/13/24 EKG Interpretation: bradycardia, sinus rhythm, no ST changes and normal QT Critical Care Time Critical Care Time Critical Care Time: Yes Total Critical Care Time: 35 Discharge Plan Discharge Clinical Impression: Bradycardia, Acute kidney injury Syncope Qualifiers: Syncope type: unspecified Qualified Code(s): R55 - Syncope and collapse Hypertension Qualifiers: Hypertension type: unspecified Qualified Code(s): I10 - Essential (primary) hypertension Patient Disposition: Still a Patient Condition: Stable Patient Language: Sudanese Prescriptions: No Action sertraline 100 mg tablet 150 mg PO DAILY Austedo 12 mg tablet 24 mg PO BID acetaminophen [Tylenol Extra Strength] 500 mg tablet 500 mg PO Q6H PRN loratadine 10 mg tablet PO isosorbide mononitrate 60 mg tablet extended release 24 hr 120 mg PO DAILY docusate calcium 240 mg capsule 240 mg PO DAILY 30 Days Qty: 30 2RF ferrous sulfate 325 mg (65 mg iron) tablet 325 mg PO DAILY Qty: 90 1RF indapamide 1.25 mg tablet 1.25 mg PO DAILY Qty: 30 0RF amoxicillin-pot clavulanate 875-125 mg tablet 1 tablet PO BID Qty: 10 0RF atorvastatin 80 mg tablet 80 mg PO QHS carvedilol 25 mg tablet 25 mg PO Q12H topiramate 25 mg tablet 50 mg PO Q12H clopidogrel 75 mg tablet 75 mg PO DAILY amantadine HCl 100 mg capsule 100 mg PO QHS trazodone 100 mg tablet 100 mg PO QHS PRN (Reason: Sleep) albuterol sulfate 90 mcg/actuation HFA aerosol inhaler 2 puff inhalation Q4H PRN (Reason: Shortness Of Breath) pantoprazole 40 mg Tablet,Delayed Release (Dr/Ec) 40 mg PO Q12HR Qty: 60 0RF nitroglycerin 0.4 mg 0.4 mg BYMOUTH PRN PRN (Reason: Angina) Rx Instructions: one tablet under tongue every 5 minutes as needed for angina aspirin 81 mg tablet,delayed release (DR/EC) 81 mg PO DAILY cholecalciferol (vitamin D3) 25 mcg (1,000 unit) capsule 25 mcg PO DAILY Qty: 90 1RF Trelegy Ellipta 100-62.5-25 mcg blister with device 1 inh inhalation DAILY Qty: 60 11RF Rx Instructions: Rinse and spit varenicline tartrate 0.5 mg (11)- 1 mg (42) tablets,dose pack See Rx Instructions .ROUTE .COMPLEX Qty: 53 0RF Dose Instruction: USE DIRECTED Rx Instructions: USE DIRECTED amlodipine 10 mg tablet 10 mg PO DAILY Qty: 90 1RF prednisone 10 mg tablet 10 mg PO .COMPLEX Qty: 35 0RF Rx Instructions: 10 mg orally; Take 4 tablets po qd x 5 days, then take 2 tablets po qd x 5 days, then take 1 tablets po qd x 5 days benzonatate 200 mg capsule 200 mg PO TID PRN (Reason: cough) Qty: 30 0RF valsartan 160 mg tablet See Rx Instructions .ROUTE .COMPLEX Qty: 180 0RF Dose Instruction: TAKE 2 TABLETS BY MOUTH DAILY Rx Instructions: TAKE 2 TABLETS BY MOUTH DAILY albuterol sulfate 2.5 mg /3 mL (0.083 %) solution for nebulization 2.5 mg continuous nebulization Q6H Qty: 90 1RF meclizine 25 mg tablet See Rx Instructions .ROUTE .COMPLEX Qty: 60 1RF Dose Instruction: TAKE 1 TABLET BY MOUTH TWICE A DAY NEEDED FOR DIZZINESS Rx Instructions: TAKE 1 TABLET BY MOUTH TWICE A DAY NEEDED FOR DIZZINESS hydrocodone-acetaminophen 10-325 mg tablet 1 tablet PO Q6H PRN (Reason: pain) Qty: 120 0RF ondansetron 4 mg tablet,disintegrating See Rx Instructions .ROUTE .COMPLEX Qty: 60 1RF Dose Instruction: DISSOLVE 1 TABLET BY MOUTH EVERY 8 HOURS NEEDED FOR NAUSEA/VOMITING Rx Instructions: DISSOLVE 1 TABLET BY MOUTH EVERY 8 HOURS NEEDED FOR NAUSEA/VOMITING Follow-up/Referrals: Saul Marcelino MD [Primary Care Provider, Family Practice]
[2024-12-13 17:36] LABS: Hematocrit 35.5 % (37.0-47.0); Hemoglobin 11.2 g/dL (12.0-15.0); Immature Granulocyte Percent A 0.3 % (0-0.5); Lymphocytes Absolute Auto 1.88 K/mm3 (0.9-3.2); Mean Corpuscular HGB Conc 31.5 g/dl (32-36); Mean Corpuscular Hemoglobin 30.0 pg (26-34); Mean Corpuscular Volume 95.2 fl (80-100); Nucleated Red Blood Cells Absolute Auto 0.000 K/mm3 (0.0-0.012); Nucleated Red Blood Cells Perc 0.0 % (0.0-0.2); Platelet Count Result 177 k/mm3 (150-375); Red Blood Count 3.73 M/mm3 (4.2-5.4); White Blood Count 8.6 K/mm3 (4.5-10.0)
--- OUTSIDE RECORDS SUMMARY | 2024-12-13 17:53 | XMS_ITS | Encounter Summary ---
Author Organization [facility] Address [facility]3 [facility] [place] [address] Care Team Providers Care Beater Operator Name Role Phone Saul Marcelino MD Primary Care Provider [phone] Francia Hammonds MD Unavailable [phone] Andre Mccann MD Unavailable [phone] Ana Andersen MD Unavailable [phone] Vincent Sandra MD Unavailable [phone] Joan Wood MD Unavailable Lyudmila Bangura MD Unavailable Gloria Alatorre MD Unavailable Mony Zaldivar PharmD Unavailable Unavaila ble Shirley Barahona PharmD Unavailable Unavailable Anastacia Garces RN Unavailable Unavailable Tabatha Solorzano Unavailable Unavailable Ness Ortiz Unavailable Sarah Grisel Singh SWINE GENETICS RESEARCHER-SUPERVISOR BEATER ROOM Unavailable Nannette Joshi RN Unavailable Unavailable Sylwia Lovelace LCSW Unavailable Unavailab le Reason for Visit * Reason Onset Date Comments MEDICATION REFILL 10/04/2024 Encounter Details Date Type Department Care Team (Late st Contact Info) Description 10/04/2024 Refill [facility] - Pulmonology [address] [facility], [place] [phone] Beau Myrick MD [address] OF PULMONARY/[place] [address] MEDICATION REFILL Social History Tobacco Use Types [...] on file Legal Sex 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 TOOL COORDINATOR Gender Identity Not on file Sexual Orientation Not on file Occupation Industry Job Start Date Job End Date former worked in [employer] Not on file [...] [facility] - Echosonography [address] [facility], [facility] [address] [place] [address] 01/05/2025 8:30 AM CDT Office Visit [facility] - Nephrology [address] [place] [address], [place] [address] Francia Hammonds MD [facility] 3L [place] [address] 02/06/2025 2:00 PM TOOL COORDINATOR Appointment [facility] CAT SCAN [address] [place] [address] Beau Myrick MD [facility]5 [facility] 2L DIV OF PULMONARY/[place] [address] 03/16/2025 2:00 PM TOOL COORDINATOR Office Visit [facility] - Neurology [address] [place] [address], [place] [address] Gary Virgen, SWINE GENETICS RESEARCHER-SUPERVISOR BEATER ROOM [address] [place] [address] 1L [place] [address] 03/21/2025 11:00 AM TOOL COORDINATOR Office Visit [facility] - Sleep Services 1034 [facility] 550 [place] [address] Maura Simmons APNP-SUPERVISOR BEATER ROOM 1034 [facility] 550 [place] [address] 06/07/2025 11:00 AM TOOL COORDINATOR Office Visit [facility] - Cardiology [address] [facility], [address] [place] [address] Andrés Kaye MD [address] [facility] [address] [place] [address] 09/13/2025 1:45 PM CDT Appointment [facility] 365[address] [facility] 2nd [place] [address] 09/13/2025 2:00 PM CDT Office Visit [facility] - Hematology/Oncology [address] [place] [phone] Aubree Thomas MD [address] [place] [address] documented as of this encounter [...] asthma documented in this encounter Care Teams Beater Operator Relationship Specialty Start Date End Date Saul Marcelino MD [address] [place] [phone] PCP - General Family Medicine 04/20/24 Francia Hammonds MD [facility] 3L [place] [address] Cloth Calender Nephrology 11/24/24 Andre Mccann MD [address] [place] [phone] Hematology and Oncology 11/24/24 Ana Andersen MD [address] [place] [address] Hematology and Oncology 11/24/24 [place] [address] [place] [address] Lining Maker Hand/Oncologist Hematology and Oncology 11/24/24 Joan Wood MD [facility]5 [place] [address] Lining Maker Hand/Oncologist Hematology and Oncology 11/24/24 Lyudmila Bangura MD [address] [address] Physician Hematology and Oncology 11/24/24 Gloria Alatorre MD [address] [place] [phone] Physician Hematology and Oncology 11/24/24 Mony Zaldivar, PharmD 11/24/24 Shirley Barahona, GodwinD Pharmacist 11/24/24 Mili, Anastacia M., RN Registered Nurse 11/24/24 Tabatha Solorzano 11/24/24 Ness Ortiz 11/24/24 Grisel Dobbins, INDRA-POP [facility] [place] [address] Nurse Practitioner Nurse Practitioner 11/24/24 Nannette Joshi, KIMO Registered Nurse 11/24/24 Sylwia Lovelace, [facility] [address] [place] [address] Tanning Consultant 11/24/24 documented as of this encounter
--- OUTSIDE RECORDS SUMMARY | 2024-12-13 17:53 | XMS_ITS | Encounter Summary ---
Author Organization [facility] Address [facility]3 [facility] [place] [address] Care Team Providers Care Bereavement Program Coordinator Name Role Phone Saul Marcelino MD Primary Care Provider [phone] Francia Hammonds MD Unavailable [phone] Andre Mccann MD Unavailable [phone] Ana Andersen MD Unavailable [phone] Vincent Sandra MD Unavailable Joan Wood MD Unavailable Lyudmila Bangura MD Unavailable Gloria Alatorre MD Unavailable Mony Zaldivar PharmD Unavailable Unavaila ble Shirley Barahona PharmD Unavailable Unavailable Anastacia Garces RN Unavailable Unavailable Tabatha Solorzano Unavailable Unavailable Ness Ortiz Unavailable Sarah Grisel Singh MANUFACTURING SUPERVISOR 2ND SHIFT-PSYCHOLOGIST COUNSELING Unavailable [phone] Nannette Joshi RN Unavailable Unavailable Sylwia Lovelace LCSW Unavailable Unavailab le Reason for Visit * Reason Onset Date Comments Med Question 10/04/2024 Encounter Details Date Type Department Care Team (Late st Contact Info) Description 10/04/2024 Telephone [facility] - Pulmonology [address] [place] [address], [place] [phone] Kunal Lennon MD [address] [place] [address] Med Question Social History Tobacco Use Types [...] on file Legal Sex 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 BIG DATA SOLUTIONS ARCHITECT Gender Identity Not on file Sexual Orientation [...] [facility] Echosonography [address] [facility] [address]120 [place] [address] 01/05/2025 8:30 AM CDT Office Visit [facility] - Nephrology 1225 [facility], [place] [address] Francia Hammonds MD 1225 [facility] 3L [place] [address] 02/06/2025 2:00 PM BIG DATA SOLUTIONS ARCHITECT Appointment [facility] CAT SCAN [address] [place] [address] Beau Myrick MD 1225 [facility] 2L DIV OF PULMONARY/[place] [address] 03/16/2025 2:00 PM BIG DATA SOLUTIONS ARCHITECT Office Visit [facility] - Neurology 1225 [facility], [place] [address] Gary Virgen APRN-PSYCHOLOGIST COUNSELING [address] [place] [phone] 03/21/2025 11:00 AM BIG DATA SOLUTIONS ARCHITECT Office Visit [facility] - Sleep Services [address] [facility] [address] [place] [address] Maura Simmons APNP-PSYCHOLOGIST COUNSELING [address] [facility] [address] [place] [address] 06/07/2025 11:00 AM BIG DATA SOLUTIONS ARCHITECT Office Visit [facility] - Cardiology [address] [facility], [facility] [address] [place] [phone] Andrés Kaye MD 1034 [facility] [address] [place] [address] 09/13/2025 1:45 PM CDT Appointment [facility] 3655 [facility], 2nd [place] [address] 09/13/2025 2:00 PM CDT Office Visit [facility] - Hematology/Oncology [address] [place] [phone] Aubree Thomas MD [address] [place] [address] documented as of this encounter Goals Goal [...] on filedocumented in this encounter Care Teams Bereavement Program Coordinator Relationship Specialty Start Date End Date Saul Marcelino MD [address] [place] [phone] PCP - General Family Medicine 04/20/24 Francia Hammonds MD [address] [place] [address] 3 [place] [address] Supervisor Lending Activities Nephrology 11/24/24 Andre Mccann MD [address] [place] [phone] Hematology and Oncology 11/24/24 Ana Andersen MD [address] [place] [address] Hematology and Oncology 11/24/24 Vincent Sandra MD [address] [place] [address] Rental Representative/Oncologist Hematology and Oncology 11/24/24 Joan Wood MD [address] [place] [address] Rental Representative/Oncologist Hematology and Oncology 11/24/24 Lyudmila Bagnura MD [address] [facility] 3 [place] [address] Physician Hematology and Oncology 11/24/24 Gloria Alatorre MD [address] [place] [phone] Physician Hematology and Oncology 11/24/24 Mony Zaldivar, PharmD 11/24/24 Shirley Barahona, PharmD Pharmacist 11/24/24 Anastacia Garces RN Registered Nurse 11/24/24 Tabatha Solorzano 11/24/24 Ness Ortiz 11/24/24 Grisel Dobbins APRN-PSYCHOLOGIST COUNSELING [address] [place] [phone] Nurse Practitioner Nurse Practitioner 11/24/24 Nannette Joshi, RN Registered Nurse 11/24/24 Sylwia Lovelace, SALT GRINDER [address] [place] [address] Wheel Alignment Mechanic 11/24/24 documented as of this encounter
--- OUTSIDE RECORDS SUMMARY | 2024-12-13 17:53 | XMS_ITS | Encounter Summary ---
Author Organization [facility] Address [address] [facility] [place] [address] Care Team Providers Care Supervisor Metal Furniture Fabrication Name Role Phone Saul Marcelino MD Primary Care Provider [phone] None, Physician Primary Care Provider Unavailabl e Saul Marcelino MD Primary Care Provider [phone] Francia Hammonds MD Unavailable [phone] Andre Mccann MD Unavailable [phone] Ana Andersen MD Unavailable [phone] Vincent Sandra MD Unavailable Joan Wood MD Unavailable Lyudmila Bangura MD Unavailable Gloria Alatorre MD Unavailable Mony Zaldivar PharmD Unavailable Unavaila Shirley Barillas PharmD Unavailable Unavailable Anastacia Garces RN Unavailable Unavailable Tabatha Solorzano Unavailable Unavailable Ness Ortiz Unavailable Sarah Grisel Singh COMMIS CHEF-PHARMACY SALESPERSON Unavailable [phone] Nannette Joshi RN Unavailable Unavailable Sylwia Lovelace EVP GLOBAL PRODUCT LEADERSHIP Unavailable Unavailab le Reason for Visit * Reason Onset Date Comments Hospital Follow-up 11/25/2023 Encounter Details Date Type Department Care Team (Late st Contact Info) Description 11/25/2023 Telephone [facility] - Cardiology [address] [facility], [facility] 1[address] [place] [address] Andrés Kaye MD [address] [facility] [address] [place] [address] Hospital Follow-up Social History Tobacco Use Types [...] on file Legal Sex 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 PHOTOVOLTAIC SUBCONTRACTOR Gender Identity Not on file Sexual Orientation [...] and was advised to f.u with her support manager prior to being discharged Patient Call Back number: [phone] documented in this encounter Plan of Treatment Upcoming Encounters Date Type Department Care Team (Late st Contact Info) Description 01/04/2025 11:00 AM CDT Ancillary Procedure [facility] - Echosonography [address] [facility], [address] [place] [address] 01/05/2025 8:30 AM CDT [facility]phrology [address] [facility], [place] [address] Francia Hammonds MD [address] [facility] 3L [place] [address] 02/06/2025 2:00 PM PHOTOVOLTAIC SUBCONTRACTOR Appointment [facility] CAT SCAN 1201 [place] [address] Beau Myrick MD 1225 [facility] 2L DIV OF PULMONARY/[place] [address] 03/16/2025 2:00 PM PHOTOVOLTAIC SUBCONTRACTOR Office Visit [facility] - Neurology [address] [place] [address] [place] [address] Gary Virgen APRN-PHARMACY SALESPERSON [address] [place] [address] 03/21/2025 11:00 AM PHOTOVOLTAIC SUBCONTRACTOR Office Visit [facility] Physician Group - Sleep Services [address] [facility] [address] [place] [address] Maura Simmons APNP-PHARMACY SALESPERSON [address] [facility] [address] [place] [address] 06/07/2025 11:00 AM PHOTOVOLTAIC SUBCONTRACTOR Office Visit [facility] Physician Group - Cardiology [address] [facility], [address] [place] [address] Andrés Kaye MD [address] [facility] [address] [place] [address] 09/13/2025 1:45 PM CDT Appointment [facility] CANCER CARE DRAWSTATION [address] [facility], 2nd [place] [address] 09/13/2025 2:00 PM CDT Office Visit [facility] Physician Group - Hematology/Oncology 3655 [place] [address] Aubree Thomas MD 3655 [place] [address] documented as of this encounter Goals Goal [...] filedocumented in this encounter Care Teams Supervisor Metal Furniture Fabrication Relationship Specialty Start Date End Date Saul Marcelino MD [address] [place] [address] PCP - General Family Medicine 09/17/22 02/09/24 None, Physician 1212 [place] [address] PCP - General 02/10/24 04/19/24 Saul Marcelino MD [address] [place] [address] PCP - General Family Medicine 04/20/24 Francia Hammonds MD [address] [place] [address] [place] [address] Sand System Operator Nephrology 11/24/24 Andre Mccann MD 3655 [place] [address] Hematology and Oncology 11/24/24 Ana Andersen MD 3655 [place] [address] Hematology and Oncology 11/24/24 Vincent Sandra MD [address] [place] [address] Timber Selector/Oncologist Hematology and Oncology 11/24/24 Joan Wood MD [address] [place] [address] Timber Selector/Oncologist Hematology and Oncology 11/24/24 Lyudmila Bangura MD [address] [address] Physician Hematology and Oncology 11/24/24 Gloria Alatorre MD [address] [place] [address] Physician Hematology and Oncology 11/24/24 Mony Zaldivar, PharmD 11/24/24 Shirley Barahona, PharmD Pharmacist 11/24/24 Anastacia Garces, RN Registered Nurse 11/24/24 Tabatha Solorzano 11/24/24 Ness Ortiz 11/24/24 Grisel Dobbins, COMMIS CHEF-PHARMACY SALESPERSON [address] [place] [address] Nurse Practitioner Nurse Practitioner 11/24/24 Nannette Joshi, RN Registered Nurse 11/24/24 Sylwia Lovelace, EVP GLOBAL PRODUCT LEADERSHIP [address] [place] [address] Manager Beauty 11/24/24 documented as of this encounter
--- OUTSIDE RECORDS SUMMARY | 2024-12-13 17:53 | XMS_ITS | Encounter Summary ---
Author Organization [facility] Address [facility] [place] [address] Care Team Providers Care Customer Account Executive Name Role Phone Saul Marcelino MD Primary Care Provider [phone] Francia Hammonds MD Unavailable [phone] Andre Mccann MD Unavailable [phone] Ana Andersen MD Unavailable [phone] Vincent Sandra MD Unavailable [phone] Joan Wood MD Unavailable Lyudmila Bangura MD Unavailable Gloria Alatorre MD Unavailable Mony Zaldivar PharmD Unavailable Unavaila ble Shirley Barahona PharmD Unavailable Unavailable Anastacia Garces RN Unavailable Unavailable Tabatha Solorzano Unavailable Unavailable Ness Ortiz Unavailable Sarah Grisel Singh FARM PRODUCT PURCHASER-HOURLY SIGN LANGUAGE INTERPRETER Unavailable Nannette Joshi RN Unavailable Unavailable Sylwia Lovelace LCSW Unavailable Unavailab le Reason for Visit * Reason Onset Date Comments MEDICATION REFILL 10/04/2024 Encounter Details Date Type Department Care Team (Late st Contact Info) Description 10/04/2024 Refill [facility] - Pulmonology [address] [facility], [place] [phone] Maico Murphy MD [address] [place] [address] MEDICATION REFILL Social History Tobacco Use Types [...] on file Legal Sex 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 FORENSIC DOCUMENT EXAMINER Gender Identity Not on file Sexual Orientation Not on file Occupation Industry Job Start Date Job End Date former worked in [employer] Not on file [...] [facility] - Echosonography [address] [facility], [address] [place] [address] 01/05/2025 8:30 AM CDT [facility] [address] [place] [address], [place] [address] Francia Hammonds MD 1225 [facility] 3L [place] [address] 02/06/2025 2:00 PM FORENSIC DOCUMENT EXAMINER Appointment [facility] CAT SCAN 1201 [place] [address] Beau Myrick MD 1225 [facility] 2L DIV OF PULMONARY/[place] [address] 03/16/2025 2:00 PM FORENSIC DOCUMENT EXAMINER Office Visit [facility] - Neurology [address] [place] [address], [place] [address] Gary Virgen APRN-HOURLY SIGN LANGUAGE INTERPRETER 12[address] [facility] 1L [place] [address] 03/21/2025 11:00 AM FORENSIC DOCUMENT EXAMINER Office Visit [facility] - Sleep Services [address] [facility] 550 [place] [address] Maura Simmons APNP-HOURLY SIGN LANGUAGE INTERPRETER [address] [facility] 550 [place] [address] 06/07/2025 11:00 AM FORENSIC DOCUMENT EXAMINER Office Visit [facility]ician Group - Cardiology [address] [facility], [address] [place] [address] Andrés Kaye MD [address] [facility] [address] [place] [address] 09/13/2025 1:45 PM CDT Appointment [facility] CANCER CARE DRAWSTATION 3655 [facility], 2nd [place] [address] 09/13/2025 2:00 PM CDT Office Visit [facility] Group - Hematology/Oncology 3655 [place] [address] Aubree Thomas MD 3655 [place] [address] documented as of this encounter Goals Goal [...] on filedocumented in this encounter Care Teams Customer Account Executive Relationship Specialty Start Date End Date Saul Marcelino MD [address] [place] [address] PCP - General Family Medicine 04/20/24 Francia Hammonds MD [address] [facility] 3L [place] [address] Chief Clinical Dietitian Nephrology 11/24/24 Andre Mccann MD 3655 [place] [address] Hematology and Oncology 11/24/24 Ana Andersen MD 3655 [place] [address] Hematology and Oncology 11/24/24 [place] [address] [place] [address] Craft Demonstrator/Oncologist Hematology and Oncology 11/24/24 [place] [address] [place] [address] Craft Demonstrator/Oncologist Hematology and Oncology 11/24/24 Lyudmila Bangura MD [address] [address] Physician Hematology and Oncology 11/24/24 Gloria Alatorre MD [address]5 [place] [address] Physician Hematology and Oncology 11/24/24 Mony Zaldivar, PharmD 11/24/24 Shirley Barahona, PharmD Pharmacist 11/24/24 Anastacia Garces, RN Registered Nurse 11/24/24 Tabatha Solorzano 11/24/24 Ness Ortiz 11/24/24 Grisel Dobbins APRN-POP [address] [place] [address] Nurse Practitioner Nurse Practitioner 11/24/24 Nannette Joshi, RN Registered Nurse 11/24/24 Sylwia Lovelace, WEIGHT LOSS SALES CONSULTANT [address] [place] [address] Airplane Fueler 11/24/24 documented as of this encounter
--- OUTSIDE RECORDS SUMMARY | 2024-12-13 17:53 | XMS_ITS | Encounter Summary ---
Author Organization [facility] Address [address] [facility] [place] [address] Care Team Providers Care Jumpbasting Canvas Baster Name Role Phone Saul Marcelino MD Primary Care Provider [phone] None, Physician Primary Care Provider Unavailabl e Saul Marcelino MD Primary Care Provider [phone] Francia Hammonds MD Unavailable [phone] Andre Mccann MD Unavailable [phone] Ana Andersen MD Unavailable [phone] Vincent Sandra MD Unavailable Joan Wood MD Unavailable Lyudmila Bangura MD Unavailable Gloria Alatorre MD Unavailable Mony Zaldivar PharmD Unavailable Unavaila Shirley Barillas PharmD Unavailable Unavailable Anastacia Garces RN Unavailable Unavailable Tabatha Solorzano Unavailable Unavailable Ness Ortiz Unavailable Sarah Grisel Singh TECHNICAL SUPPORT REPRESENTATIVE-YOUTH AGENT Unavailable Nannette Joshi RN Unavailable Unavailable Sylwia Lovelace LCSW Unavailable Unavailab le Reason for Visit * Reason Onset Date Comments Update 08/17/2023 Encounter Details Date Type Department Care Team (Late st Contact Info) Description 08/17/2023 Telephone [facility] - Centralized Scheduling [address] [place] [address] Ness Burton, AuD [address] [place] [address] Update Social History Tobacco Use Types Packs/Day [...] on file Legal Sex 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 COTTON WEIGHER OPERATOR Gender Identity Not on file Sexual [...] be here tomorrow at 3:30pm. Her phone: [phone] documented in this encounter Plan of Treatment Upcoming Encounters Date Type Department Care Team (Late st Contact Info) Description 01/04/2025 11:00 AM CDT Ancillary Procedure [facility] - Echosonography [address] [facility], [facility] 1120 [place] [address] 01/05/2025 8:30 AM CDT Office Visit [facility] - Nephrology 1225 [facility], [place] [address] Francia Hammonds MD 1225 [facility] 3L [place] [address] 02/06/2025 2:00 PM COTTON WEIGHER OPERATOR Appointment [facility] CAT SCAN [address] [place] [address] Beau Myrick MD [address] [facility] 2L DIV OF PULMONARY/[place] [address] 03/16/2025 2:00 PM COTTON WEIGHER OPERATOR Office Visit [facility] Physician Group - Neurology [address] [facility], [place] [address] Gary Virgen, TECHNICAL SUPPORT REPRESENTATIVE-YOUTH AGENT [address] [facility] 1L [place] [address] 03/21/2025 11:00 AM COTTON WEIGHER OPERATOR Office Visit [facility] Physician Group - Sleep Services 1034 [facility] 550 [place] [address] Maura Simmons APNP-YOUTH AGENT 1034 [facility] 550 [place] [address] 06/07/2025 11:00 AM COTTON WEIGHER OPERATOR Office Visit [facility] Physician Group - Cardiology 1034 [facility], [facility] 1120 [place] [address] Andrés Kaye MD 1034 [facility] SUITE [facility] [place] [address] 09/13/2025 1:45 PM CDT Appointment [facility] CANCER CARE DRAWSTATION 3655 [facility], 2nd [place] [address] 09/13/2025 2:00 PM CDT Office Visit [facility] Physician Group - Hematology/Oncology 3655 [place] [address] Aubree Thomas MD 3655 [place] [address] documented as of this encounter Goals Goal Patient Goal Type Associated Problems Recent Progress Patient-Stated? Author Medication Management General On track( 025 2:47 PM CDT) Radha De La Fuente RN Note: Expected end date: Ongoing Interventions: Take all medications as prescribed Let your doctor know right away about any changes in your medications Make sure to request a refill of your medication at least one week prior to your last dose documented as of this encounter Visit Diagnoses Not on filedocumented in this encounter Care Teams Jumpbasting Canvas Baster Relationship Specialty Start Date End Date Saul Marcelino MD [address] [place] [address] PCP - General Family Medicine 09/17/22 02/09/24 None, Physician [facility] [place] [address] PCP - General 02/10/24 04/19/24 Saul Marcelino MD [address] [place] [address] PCP - General Family Medicine 04/20/24 Francia Hammonds MD [address] [place] [address] [place] [address] Vocational Rehabilitation Counselor Nephrology 11/24/24 Andre Mccann MD [address] [place] [phone] Hematology and Oncology 11/24/24 Ana Andersen MD [address] [place] [address] Hematology and Oncology 11/24/24 Vincent Sandra MD [address] [place] [address] Head Butler/Oncologist Hematology and Oncology 11/24/24 Joan Wood MD [facility] [place] [address] Head Butler/Oncologist Hematology and Oncology 11/24/24 Lyudmila Bangura MD 3665 [facility] 3 [place] [address] Physician Hematology and Oncology 11/24/24 Gloria Alatorre MD 3655 [place] [address] Physician Hematology and Oncology 11/24/24 Mony Zaldivar, PharmD 11/24/24 Shirley Barahona, PharmD Pharmacist 11/24/24 Anastacia Garces RN Registered Nurse 11/24/24 Tabatha Solorzano 11/24/24 Ness Ortiz 11/24/24 Grisel Dobbins, TECHNICAL SUPPORT REPRESENTATIVE-YOUTH AGENT [address] [place] [address] Nurse Practitioner Nurse Practitioner 11/24/24 Nannette Joshi, RN Registered Nurse 11/24/24 Sylwia Lovelace LCSW [address] [place] [address] Manager Market Intelligence 11/24/24 documented as of this encounter
--- OUTSIDE RECORDS SUMMARY | 2024-12-13 17:53 | XMS_ITS | Encounter Summary ---
Author Organization [facility] Address [facility]3 [place] [address] Care Team Providers Care Splicing Supervisor Name Role Phone Saul Marcelino MD Primary Care Provider [phone] Francia Hammonds MD Unavailable [phone] Andre Mccann MD Unavailable [phone] Ana Andersen MD Unavailable [phone] Vincent Sandra MD Unavailable Joan Wood MD Unavailable Lyudmila Bangura MD Unavailable Gloria Alatorre MD Unavailable Mony Zaldivar PharmD Unavailable Unavaila ble Shirley Barahona PharmD Unavailable Unavailable Anastacia Garces RN Unavailable Unavailable Tabatha Solorzano Unavailable Unavailable Ness Ortiz Unavailable Sarah Grisel Singh SLIVER CHOPPER-BUNDLE WRAPPER Unavailable Nannette Joshi RN Unavailable Unavailable Sylwia Lovelace LCSW Unavailable Unavailab le Reason for Visit * Reason Onset Date Comments MEDICATION REFILL 10/04/2024 Encounter Details Date Type Department Care Team (Late st Contact Info) Description 10/04/2024 Refill [facility] - Pulmonology 1225 [facility], [place] [address] Kunal Lennon MD [address] [address] MEDICATION REFILL Social History Tobacco Use Types [...] on file Legal Sex 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 PHLEBOTOMY SERVICES REPRESENTATIVE Gender Identity Not on file Sexual Orientation Not on file Occupation Industry Job Start Date Job End Date 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 3L [place] [address] 02/06/2025 2:00 PM PHLEBOTOMY SERVICES REPRESENTATIVE Appointment [facility] CAT SCAN 1201 [place] [address] Beau Myrick MD 1225 [facility] 2L DIV OF PULMONARY/[place] [address] 03/16/2025 2:00 PM PHLEBOTOMY SERVICES REPRESENTATIVE Office Visit [facility] Physician Group - Neurology 1225 [facility], [place] [address] Gary Virgen APRN-BUNDLE WRAPPER 1225 [facility] 1L [place] [address] 03/21/2025 11:00 AM PHLEBOTOMY SERVICES REPRESENTATIVE Office Visit [facility] Physician Group - Sleep Services [address] [address] Maura Simmons APNP-BUNDLE WRAPPER [address] [address] 06/07/2025 11:00 AM PHLEBOTOMY SERVICES REPRESENTATIVE Office Visit [facility] Physician Group - Cardiology [address] [place] [address] Andrés Kaye MD 1034 [facility] [address] [place] [address] 09/13/2025 1:45 PM CDT Appointment [facility] CANCER CARE DRAWSTATION 3655 [facility], 2nd [place] [address] 09/13/2025 2:00 PM CDT Office Visit [facility] Physician Group - Hematology/Oncology 3655 [place] [address] Aubree Thomas MD [address]5 [place] [address] documented as of this encounter Goals Goal [...] asthma documented in this encounter Care Teams Splicing Supervisor Relationship Specialty Start Date End Date Saul Marcelino MD [address] [place] [phone] PCP - General Family Medicine 04/20/24 Francia Hammonds MD [address] [place] [address] 3 [place] [address] Doctor Of Nurse Anesthesia Practice Nephrology 11/24/24 Andre Mccann MD [address] [place] [address] Hematology and Oncology 11/24/24 Ana Andersen MD [address]5 [place] [address] Hematology and Oncology 11/24/24 Vincent Sandra MD [address]5 [place] [address] Crude Oil Driver/Oncologist Hematology and Oncology 11/24/24 Joan Wood MD [address] [place] [address] Crude Oil Driver/Oncologist Hematology and Oncology 11/24/24 Lyudmila Bangura MD [address] [address] Physician Hematology and Oncology 11/24/24 Gloria Alatorre MD [address] [place] [address] Physician Hematology and Oncology 11/24/24 Mony Zaldivar, PharmD 11/24/24 Shirley Barahona, PharmD Pharmacist 11/24/24 Anastacia Garces, RN Registered Nurse 11/24/24 Tabatha Solorzano 11/24/24 Ness Ortiz 11/24/24 Grisel Dobbins, INDRA-BUNDLE WRAPPER [address] [place] [address] Nurse Practitioner Nurse Practitioner 11/24/24 Nannette Joshi, RN Registered Nurse 11/24/24 Sylwia Lovelace LCSW [address] [place] [address] Fitness Attendant 11/24/24 documented as of this encounter
--- OUTSIDE RECORDS SUMMARY | 2024-12-13 17:54 | XMS_ITS | Clinical Summary ---
Author Organization [facility] Kior Address [address] [place] [address] Care Team Providers Care Ammonia Solution Preparer Name Role Phone Saul Marcelino MD Primary Care Provider [phone] Francia Hammonds MD Unavailable [phone] Andre Mccann MD Unavailable [phone] Ana Andersen MD Unavailable [phone] Vincent Sandra MD Unavailable Joan Wood MD Unavailable Lyudmila Bangura MD Unavailable Gloria Alatorre MD Unavailable Mony Zaldivar PharmD Unavailable Unavaila ble Shirley Barahona PharmD Unavailable Unavailable Anastacia Garces RN Unavailable Unavailable Tabatha Solorzano Unavailable Unavailable Ness Ortiz Unavailable Sarah Grisel Singh CARTOGRAPHY TEACHER-ELECTRICAL ACCESSORIES II ASSEMBLER Unavailable Nannette Joshi RN Unavailable Unavailable Sylwia Lovelace LCSW Unavailable Unavailab le Source Comments [facility],non-owned Affiliates and Associated Physician Practices is amultiple site organization consisting of ambulatory clinics and hospital sitesin [place], [place], [place] and [place]. This disclosure is being madepursuant to the Care Everywhere program and may not contain all information available regarding this patient. 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 09/17/2022 Angina pectoris 06/25/2022 Overview (06/25/2022): Added automatically from request for surgery [id number] Nontoxic multinodular goiter 12/28/2020 Overview (02/13/2021): Last [...] Description 12/07/2024 11:15 AM CDT Office Visit [facility] - Cardiology [address] [facility], [facility] [address] [place] [address] Andrés Kaye MD Chronic obstructive pulmonary disease, unspecified COPD type (HCC) (Primary Dx); Essential hypertension; 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; BERTA (obstructive sleep apnea); Mixed hyperlipidemia 12/07/2024 Travel 11/30/2024 2:08 PM CDT - 11/30/2024 11:59 PM CDT Hospital Encounter [facility] [address] [place] [address] Adarsh Menendez MD Discharge Disposition: Home or Self Care 11/30/2024 Travel 11/30/2024 Telephone [facility] GI [address] [place] [address] Jackeline Umanzor MD Results 11/25/2024 Telephone [facility] - Nephrology [address] [place] [phone] Francia Hammonds MD Follow-up 11/25/2024 Telephone [facility] [address] [place] [address] Jayla Steiner 11/23/2024 Orders Only [facility] - Nephrology [address] [place] [phone] Francia Hammonds MD Proteinuria, unspecified type 11/23/2024 Telephone [facility] - Nephrology [address] [place] [phone] Huong Espinal, RN Question 11/23/2024 Telephone [facility] - Nephrology [address] [place] [phone] Francia Hammonds MD LABS ONLY; Follow-up 11/17/2024 1:20 PM CDT Anesthesia Event [facility] ENDOSCOPY [address] [place] [address] Claude Parekh MD 11/17/2024 12:30 PM CDT - 11/17/2024 1:15 PM CDT Surgery [facility] ENDOSCOPY [address] [place] [address] Jewel Dooley MD COLONOSCOPY SCREEN--- extended prep 11/17/2024 10:52 AM CDT - 11/17/2024 3:29 PM CDT Hospital Encounter [facility] OP [address] [place] [address] Jewel Dooley MD Surgery General Discharge Disposition: Home or Self Care 11/17/2024 Travel 11/14/2024 Travel 11/11/2024 1:15 PM CDT - 11/11/2024 11:59 PM CDT Hospital Encounter [facility] LAB OP DRAW STATION [address] [place] [address] Discharge Disposition: Home or Self Care 11/11/2024 Travel 11/09/2024 Orders Only [facility] ENDOSCOPY [address] [place] [address] Radha Steiner RN 11/04/2024 Patient Outreach [facility] ENDOSCOPY [address] [place] [address] Yelitza Espino, KIMO Pre-op Instructions 11/02/2024 2:00 PM CDT Office Visit [facility] - Nephrology [address] [place] [phone] Adarsh Menendez MD Stage 3b chronic kidney disease (HCC) (Primary Dx); Persistent proteinuria; Acute renal failure with other specified pathological lesion in kidney; Encounter for screening for other viral diseases; Chronic kidney disease, stage 3b (HCC) 11/02/2024 12:55 PM CDT - 11/02/2024 11:59 PM CDT Hospital Encounter [facility] LAB OP DRAW STATION [address] [place] [address] Discharge Disposition: Home or Self Care 11/02/2024 Orders Only [facility] - GI [address] [place] [phone] Bertha Banks RN Stage 3b chronic kidney disease (HCC) ; Low vitamin D level; Mixed hyperlipidemia; Hyperparathyroidism (HCC) 11/02/2024 Travel 11/01/2024 Orders Only [facility] ENDOSCOPY [address] [place] [phone] Judie Cerrato, KIMO 10/29/2024 Refill [facility] - Pulmonology [address] [place] [phone] Maico Murphy MD Refill Request 10/25/2024 Travel 10/24/2024 4:00 PM CDT Office Visit [facility] - ENT [address] [place] [phone] Rufino Toscano MD Sensorineural hearing loss (SNHL) of both ears (Primary Dx); Cochlear implant status; Migraine equivalent; Otalgia of both ears; Hoarseness; Dizziness and giddiness; Migraine with aura and with status migrainosus, not intractable; Neck pain 10/24/2024 3:30 PM CDT Testing Visit [facility] - ENT [facility] [facility], [place] [address] Ness Burton AuD Sensorineural hearing loss (SNHL) of both ears 10/24/2024 Travel 10/22/2024 Refill [facility] - Cardiology [address] [facility], [facility] [address] [place] [address] Andrés Kaye MD Refill Request 10/12/2024 Telephone [facility] [address] [place] [phone] Jackeline Umanzor MD Results 10/06/2024 Telephone [facility] [address] [place] [address], [place] [phone] Inocente Renee MD Results 10/04/2024 Telephone [facility] - Pulmonology [address] [place] [phone] Kunal Lennon MD Med Question 10/04/2024 Orders Only [facility] - Pulmonology [address] [place] [phone] Trixie Yoon RN Mild persistent asthma without complication (HCC) 10/04/2024 Refill [facility] - Pulmonology [address] [place] [phone] Kunal Lennon MD MEDICATION REFILL 10/04/2024 Refill [facility] - Pulmonology [address] [place] [phone] Beau Myrick MD MEDICATION REFILL 10/04/2024 Refill [facility] - Pulmonology [facility] [place] [address] Maico Murphy MD MEDICATION REFILL 09/22/2024 11:00 AM CDT - 09/22/2024 12:30 PM CDT Surgery [facility] ENDOSCOPY [address] [place] [address] Procedure, Nursing G_I GASTRIC MOTILITY STUDY 09/22/2024 10:08 AM CDT - 09/22/2024 11:48 AM CDT Hospital Encounter [facility] [address] [place] [address] Jewel Dooley MD Gastroenterology Discharge Disposition: Home or Self Care 09/22/2024 Travel 09/22/2024 Telephone [facility] ENDOSCOPY [address] [place] [address] Red Haque, RN Returned Call 09/16/2024 Telephone [facility] - Pulmonology [address] [place] [phone] Kunal Lennon MD Medication Prior Auth Request 09/15/2024 3:40 PM CDT Office Visit [facility] - Hematology/Oncolo gy [address] [place] [address] Aubree Thomas MD Monoclonal gammopathy (Primary Dx); Elevated serum immunoglobulin free light chain level 09/15/2024 3:06 PM CDT - 09/15/2024 11:59 PM CDT Hospital Encounter [facility] CANCER CARE DRAWSTATION [address] [facility], 2nd [place] [address] Discharge Disposition: Home or Self Care 09/15/2024 Travel 09/14/2024 2:00 PM CDT Office Visit [facility] - Neurology [address] [place] [phone] Gary Virgen APRN-POP Tardive dyskinesia (Primary Dx); [...] on file Legal Sex 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 WARPER CREELER Gender Identity Not on file Sexual Orientation Not on file Occupation Industry Job Start Date Job End Date former worked in [employer] people Not on file [...] [facility] - Echosonography [address] [facility] [address] [place] [address] 01/05/2025 8:30 AM CDT Office Visit [facility] - Nephrology [address] [facility], [place] [phone] Francia Hammonds MD [address] [facility] 3L [place] [address] 02/06/2025 2:00 PM WARPER CREELER Appointment [facility] CAT SCAN [address] [place] [address] Beau Myrick MD [address] [facility] 2L DIV OF PULMONARY/[place] [address] 03/16/2025 2:00 PM WARPER CREELER Office Visit [facility] - Neurology [address] [facility], [place] [phone] Gary Virgen APRN-ELECTRICAL ACCESSORIES II ASSEMBLER [address] [facility] 1L [place] [phone] 03/21/2025 11:00 AM WARPER CREELER Office Visit [facility] - Sleep Services [address] [phone] Maura Simmons, APNP-ELECTRICAL ACCESSORIES II ASSEMBLER [address] [phone] 06/07/2025 11:00 AM WARPER CREELER Office Visit [facility] - Cardiology [address] [facility], [place] [address] [place] [address] Andrés Kaye MD [address] [place] [facility] [place] [facility] [address] [place] [address] 09/13/2025 1:45 PM CDT Appointment [facility] CANCER CARE DRAWSTATION [address] [facility], 2nd [place] [address] 09/13/2025 2:00 PM CDT Office Visit [facility] - Hematology/Oncology [address] [place] [phone] Aubree Thomas MD [address] [place] [phone] Health Maintenance Due Date Last Done Comments [...] the bathroom Medical Devices Implanted Type Area Nuclear Radiation Engineer Device Identifier Shelf Expiration Date Model / Serial / Lot Sys Cor Stent Sng Xd Mr 2.25mm 20mm Dlv - [id number] Implanted:Qty: 1 on 08/17/2023 by Jeane Lu MD at [facility] Left: Coronary [employer] [id number] 07/14/2024 [id number] / [id number] / [id number] Procedures Procedure Name Priority Date/Time Associated Diagnosis Comments US KIDNEY WITH DOPPLER Routine 11/30/2024 4:04 PM CDT Persistent proteinuria Chronic kidney disease, stage 3b (HCC) PATHOLOGY TISSUE Routine 11/17/2024 1:51 PM CDT Colon cancer screening VT COLOREC CANC JOHNN,[place] NOT HI RISK 11/17/2024 1:16 PM CDT Colon cancer screening Special Needs Message Received: Today Radha Steiner RN Feilner, Michelle, RN Previous Messages ----- Message ----- From: Jackeline Umanzor MD Sent: 08/15/2024 3:41 PM CDT To: [facility] Schedulers - Endoscopy Pool This patient had [...] 3b chronic kidney disease (HCC) Persistent proteinuria MPO/VT 3 AUTOANTIBODIES PANEL Routine 11/11/2024 1:28 PM [...] D level Mixed hyperlipidemia Hyperparathyroidi sm (HCC) VT LARYNGOSCOPY,FLEX FIBER,DIAGNOSTIC Routine 10/24/2024 4:34 PM CDT Hoarseness AUDIOLOGY/TYMPANOMETR Y ORDER Routine 10/24/2024 3:21 PM CDT VT ESOPHAGUS MOTILITY STUDY 09/22/2024 10:30 AM CDT [...] Swetha Castro MD on 11/30/2024 4:53 PM [facility] ORDERABLES Final Result * PATHOLOGY TISSUE (11/17/2024 1:51 PM CDT) Case Report Surgical Pathology Report Case: [id number] Authorizing Provider: Jewel Dooley MD Collected: 11/17/2024 01:51 PM Ordering Location: [facility] ENDOSCOPY Received: 11/17/2024 02:47 PM Pathologist: Arleen [...] resected and retrieved. 11/18/2024 3:46 PM CDT [facility] Gross Description The requisition and [...] CDT U PATHOLOGY LAB Pathologist Location at [facility] 11/18/2024 3:46 PM CDT [facility] Disclaimer The performance characteristics of all immunohistochemical and indirect immunofluorescence stains (if any) cited in this report were determined by the Histopathology Laboratory of [facility]. Some of these tests were developed by [...] attending (teaching) pathologist. 11/18/2024 3:46 PM CDT [facility] Embedded Images 11/18/2024 3:46 PM CDT [facility] Biopsy, NOS POLYP / Unknown 11/17/2024 1 :51 PM CDT 11/17/2024 2:47 PM CDT Comment:Pre-op diagnosis: Colon cancer screening [Z12.11] Biopsy, NOS POLYP / Unknown 11/17/2024 2 :04 PM CDT 11/17/2024 2:47 PM CDT Comment:Pre-op diagnosis: Colon cancer screening [Z12.11] Jewel Dooley MD LAB - PATHOLOGY/CYTOLOGY ORDERA BLES Final Result [facility] [address] [facility]. [address] [phone] * ENDOSCOPY, COLON, SCREENING (11/17/2024 1:14 PM CDT) Report Endoscopy POC Endoscopy Department Report _ Patient Name: Eduarda Yusuf Procedure Date: 11/17/2024 1:14 PM Date of : 1955 Classification: Outpatient Gender: Female Ethnicity: Not or Race: or [place] _ Providers: Jewel Dooley MD, Joni Corrales [...] and oxygen saturations were monitored continuously. The -[id number] was introduced through the anus and advanced to the cecum, identified by appendiceal orifice and ileocecal valve. The colonoscopy was performed without difficulty. The patient tolerated the procedure well. The quality of the bowel preparation was evaluated using the BBPS (Novelty Bowel Preparation Scale) with scores of: Right [...] non-berrios portions. Procedure Code(s): --- Professional --- 48134, Colonoscopy, flexible; with removal of tumor(s), polyp(s), or other lesion(s) by snare technique Diagnosis Code(s): --- Professional --- Z12.11, Encounter for screening for malignant neoplasm of colon K64.0, First degree hemorrhoids D12.2, Benign neoplasm of ascending colon D12.3, Benign neoplasm of transverse colon (hepatic flexure or splenic flexure) K57.30, Diverticulosis of large intestine without perforation or abscess without bleeding CPT copyright 2021 [employer]. All rights reserved. The codes documented in this report are preliminary and upon clinical coder review may be revised to meet current compliance requirements. Jewel Dooley MD 11/17/2024 2:56:01 PM Note Initiated On: 11/17/2024 1:14 PM Number of Addenda: [id number] [place] [address] [facility] 11/17/2024 1:14 PM CDT Jewel Dooley MD GI PROCEDURE ORDERABLES Edited Result - Final [facility] PROVATION * PROTEIN ELECTROPHORESIS URINE RANDOM (11/11/2024 2:05 PM CDT) Interpretation Urine PE See Comment Normal Pattern 11/14/2024 6:07 PM CDT [facility] Comment: Urine protein electrophoresis shows a band corresponding to albumin with small amounts of other nonspecific proteinuria. No monoclonal immunoglobulins detected. Mello Carmona PhD, [facility] Clinical Pipe Straightener wheel filler Protein Urine 212 Not Established mg/dL 11/14/2024 6:07 PM CDT [facility] Comment:Result obtained by jose e quan. Urine URINE SPECIMEN OBTAINED BY CLEAN CATCH PROCEDURE / Unknown Collection / Unknown 11/11/2024 2:05 PM CDT 11/11/2024 2:11 PM CDT Adarsh Menendez MD LAB - URINE CHEMISTRY ORDERABLES Final Result Performing Organization Address City/[facility]/ZIP Co de Phone Number [address] [address], [facility] [phone] * (ABNORMAL) MICROALB/CREAT RATIO URINE RANDOM PANEL (11/11/2024 2:05 PM CDT) Only the most recent of2 resultswithin the time period is included. Pathologist [facility] Albumin Random Urine 1,612.1 Not Established ug/mL 11/11/2024 3:07 PM CDT [facility] Creatinine Urine 109.89 Not Established mg/dL 11/11/2024 3:07 PM CDT [facility] Urine Albumin/Creati nine Ratio 1,467(H) <30 mg/g 11/11/2024 3:07 PM CDT [facility] Urine URINE SPECIMEN OBTAINED BY CLEAN CATCH PROCEDURE / Unknown Collection / Unknown 11/11/2024 2:05 PM CDT 11/11/2024 2:11 PM CDT Adarsh Menendez MD LAB - URINE CHEMISTRY ORDERABLES Final Result Performing Organization Address [facility] Co de Phone Number [address] [address], [facility] [phone] * DNA ANTIBODY DS CRITHIDIA TITER (11/11/2024 1:28 PM CDT) dsDNA Antibody IgG <1:10 <1:10 2024 3:11 PM CDT [facility] ([facility]) Comment: INTERPRETIVE INFORMATION: Double-Stranded DNA (dsDNA) Antibody, [...] recommendations for testing may be found at [email or web address]/content/[email or web address]-[email or web address]. Performed By: [facility] [employer] [facility] [employer] [address] [place] [address] Nursing Project Coordinator: Wiliam Samuels MD, PhD CLIA Number: [id number] Blood BLOOD SPECIMEN / Unknown Lab Venipuncture / Unknown 11/11/2024 1:28 PM CDT 11/11/2024 1:30 PM CDT Adarsh Menendez MD LAB - SEROLOGY ORDERABLES Final Result [facility] ([facility]) [address] [place] [address], [facility] * HEPATITIS B SURFACE ANTIBODY QUANT (11/11/2024 1:28 PM CDT) Hepatitis B Virus Surface Antibody Non-react reji Non-react reji 11/11/2024 2:35 PM CDT [facility] Comment: < 8 mIU/mL Hepatitis B surface Antibody (HBsAb). Nonreactive for HBsAb - individual is considered not immune to Hepatitis B Virus infection. Hepatitis B Surface Antibody Quantitative <3.0 <8.0 mIU/mL 11/11/2024 2:35 PM CDT [facility] Comment: Hepatitis B Surface Antibody Numeric Result Interpretation: Nonreactive: <8.0 mIU/mL Indeterminate: 8.0 - 12.0 mIU/mL Reactive: >12.0 mIU/mL Blood BLOOD SPECIMEN / Unknown Lab Venipuncture / Unknown 11/11/2024 1:28 PM CDT 11/11/2024 1:30 PM CDT Narrative [facility] - 11/11/2024 2:35 PM CDT This assay should not be used for blood, plasma, or tissue donor screening. This assay is not recommended for neonates born to HBV-infected or suspected HBV-infected mothers. us Adarsh Menendez MD LAB - SEROLOGY ORDERABLES Final Result [facility] [address] [place] [address], [facility] [phone] * RUDY BLOOD SCREEN W/REFLEX TITER (11/11/2024 1:28 PM CDT) RUDY IgG None Detected None Detected 11/13/2024 12:36 AM CDT [facility] ([facility]) Comment: No Anti-Nuclear Antibodies (RUDY) detected by . No further testing will be performed. If suspicion of connective tissue disease is strong and RUDY is negative, consider testing for RUDY by IFA ([id number]). INTERPRETIVE INFORMATION: Anti-Nuclear Antibodies (RUDY), IgG by Antinuclear Antibodies (RUDY), IgG by : RUDY specimens are screened using enzyme-linked immunosorbent assay () methodology. All results reported as Detected are further tested by indirect fluorescent assay (IFA) using HEp-2 substrate with an IgG-specific conjugate. The RUDY screen is designed to detect antibodies against dsDNA, histones, SS-A (Ro), SS-B (La), Gutiérrez, Gutiérrez/SAMPLE MOUNTER, Scl-70, Pauline-1, centromeric proteins, other antigens extracted from the HEp-2 cell nucleus. RUDY assays have been reported to have lower sensitivities than RUDY IFA for systemic autoimmune rheumatic diseases (SARD). Negative results do not necessarily rule out SARD. Performed By: [employer] [address] [place] [id number] Nursing Project Coordinator: Wiliam Samuels MD, PhD CLIA Number: [id number] Blood BLOOD SPECIMEN / Unknown Lab Venipuncture / Unknown 11/11/2024 1:28 PM CDT 11/11/2024 1:30 PM CDT Adarsh Menendez MD LAB - CHEMISTRY ORDERABLES Final Result [facility]) [address] * GLOMERULAR BASE MEMBRANE ANTIBODY IGG (11/11/2024 1:28 PM CDT) GBM Antibody IgG (EU) 0 0 - 19 AU/mL 11/13/2024 11:53 AM CDT [facility] ([facility]) Comment: INTERPRETIVE INFORMATION: GBM Ab, IgG by [...] and assessment of renal prognosis. Performed By: [facility] [address] [place] [address] Nursing Project Coordinator: Wiliam Samuels MD, PhD CLIA Number: [id number] Blood BLOOD SPECIMEN / Unknown Lab Venipuncture / Unknown 11/11/2024 1:28 PM CDT 11/11/2024 1:30 PM CDT HarrisonAndriy Menendez MD LAB - CHEMISTRY ORDERABLES Final Result [facility] ([facility]) [address] * MPO/VT 3 AUTOANTIBODIES PANEL (11/11/2024 1:28 PM CDT) Serine Proteinase 3 IgG 0 0 - 19 AU/mL 11/14/2024 1:58 PM CDT [facility] ([facility]) Comment: INTERPRETIVE INFORMATION: Serine Proteinase 3, IgG 19 AU/mL or Less ........ Negative 20-25 AU/mL ............. Equivocal 26 AU/mL or Greater ..... Positive Approximately 85% of patients with a C-ANCA pattern by IFA have antibodies specific for PR3. Performed By: [facility] [employer] [address] [place] [address] Nursing Project Coordinator: Wiliam Samuels MD, PhD CLIA Number: [id number] Myeloperoxidase Antibody 0 0 - 19 AU/mL 11/14/2024 1:58 PM CDT [facility] ([facility]) Comment: INTERPRETIVE INFORMATION: Myeloperoxidase Abs, IgG 19 AU/mL or Less ......... Negative 20-25 AU/mL .............. Equivocal 26 AU/mL or Greater ...... Positive Approximately 90% of patients with a P-ANCA pattern by IFA have antibodies specific for MPO. Blood BLOOD SPECIMEN / Unknown Lab Venipuncture / Unknown 11/11/2024 1:28 PM CDT 11/11/2024 1:30 PM CDT [facility] LAB - CHEMISTRY ORDERABLES Final Result [facility]) [address] [place] [address], [facility] * (ABNORMAL) KAPPA/LAMBDA LITE CHAIN FREE PANEL (11/11/2024 1:28 PM CDT) [place] Quant Free Light Chain 71.32(H) 3.30 - 19.40 mg/L 11/13/2024 4:43 AM CDT [facility] ([facility]) Comment: INTERPRETIVE INFORMATION: [place] Qnt Free Light Chains Undetected antigen excess is a rare event but cannot be excluded. Free light chain results should always be interpreted in conjunction with other clinical and laboratory findings. Lambda Free Light Chain Quantitative 95.20(H) 5.71 - 26.30 mg/L 11/13/2024 4:43 AM CDT [facility] ([facility]) Comment: INTERPRETIVE INFORMATION: Lambda Qnt Free Light Chains Undetected antigen excess is a rare event but cannot be excluded. Free light chain results should always be interpreted in conjunction with other clinical and laboratory findings. [place]/Lambda Free Light Chain ratio 0.75 0.26 - 1.65 11/13/2024 4:43 AM CDT [facility] ([facility]) Comment: Performed By: [employer] [address] [place] [address] Nursing Project Coordinator: Wiliam Samuels MD, PhD CLIA Number: [id number] Blood BLOOD SPECIMEN / Unknown Lab Venipuncture / Unknown 11/11/2024 1:28 PM CDT 11/11/2024 1:30 PM CDT Adarsh Menendez MD LAB - CHEMISTRY ORDERABLES Final Result Performing Organization Address City/[facility] Co de Phone Number [facility]) [address] [place], [place] [address] * PT-INR (11/11/2024 1:28 PM CDT) PT 14.4 12.1 - 14.8 Seconds 11/11/2024 1:58 PM CDT [facility] INR 1.1 See Comment 11/11/2024 1:58 PM CDT [facility] Comment:The suggested therap eutic range for standard coumadin (warfarin) therapy is an INR of 2.0-3.0. For high-risk patients (Mechanical Mitral Valve Prosthesis, etc.), the suggested prophylactic therapeutic range is an INR of 2.5-3.5. Blood BLOOD SPECIMEN / Unknown Lab Venipuncture / Unknown 11/11/2024 1:28 PM CDT 11/11/2024 1:30 PM CDT Adarsh Menendez MD LAB - COAGULATION ORDERABLES Fin al Result [facility] [address] [place] [address], [facility] [phone] * COMPLEMENT C4 (11/11/2024 1:28 PM CDT) Complement C4 35 15 - 57 mg/dL 11/11/2024 2:02 PM CDT [facility] Blood BLOOD SPECIMEN / Unknown Lab Venipuncture / Unknown 11/11/2024 1:28 PM CDT 11/11/2024 1:35 PM CDT us Adarsh Menendez MD LAB - SEROLOGY ORDERABLES Final Result [facility] [address] [place] [address], [facility] [phone] * (ABNORMAL) RENAL FUNCTION PANEL (11/11/2024 1:28 PM CDT) Only the most recent of2 resultswithin the time period is included. BUN 39(H) 7 - 26 mg/dL 11/11/2024 2:02 PM [facility] Creatinine 2.08(H) 0.56 - 0.96 mg/dL 11/11/2024 2:02 PM [facility] Sodium 140 136 - 145 mmol/L 11/11/2024 2:02 PM [facility] Potassium 4.7(H) 3.5 - 4.5 mmol/L 11/11/2024 2:02 PM [facility] Chloride 107 98 - 107 mmol/L 11/11/2024 2:02 PM [facility] CO2 29 22 - 29 mmol/L 11/11/2024 2:02 PM [facility] Glucose 94 70 - 99 mg/dL 11/11/2024 2:02 PM [facility] Albumin 3.1(L) 3.4 - 5.0 g/dL 11/11/2024 2:02 PM [facility] Calcium 8.4 8.4 - 10.2 mg/dL 11/11/2024 2:02 PM [facility] Phosphorus 4.6 2.9 - 5.1 mg/dL 11/11/2024 2:02 PM [facility] Anion Gap 4(L) 6 - 16 11/11/2024 2:02 PM [facility] BUN/Creatinine Ratio 19 7 - 23 11/11/2024 2:02 PM [facility] Osmolality Calculated 299(H) 275 - 295 mOsm/kg 11/11/2024 2:02 PM [facility] eGFR by CKD-EPI 25(L) >=90 mL/min/1.7 3 m2 11/11/2024 2:02 PM CDT [facility] Comment:Estimated Glomerular Filtration Rate (eGFR) calculated using the CKD-EPI Creatinine Equation (2020), per the National Kidney Foundation and [place] [employer] of Nephrology recommendations. Blood BLOOD SPECIMEN / Unknown Lab Venipuncture / Unknown 11/11/2024 1:28 PM CDT 11/11/2024 1:35 PM CDT Adarsh Menendez MD LAB - CHEMISTRY ORDERABLES Final Result Performing Organization Address City/[facility]/ZIP Co de Phone Number [address] [address], [place] [phone] * HEPATITIS B SURFACE ANTIGEN W RFLX CONFIRMATION (11/11/2024 1:28 PM CDT) Hepatitis B Virus Surface Antigen Non-reacti ve Non-reacti ve 11/11/2024 2:33 PM CDT [facility] Blood BLOOD SPECIMEN / Unknown Lab Venipuncture / Unknown 11/11/2024 1:28 PM CDT 11/11/2024 1:30 PM CDT Adarsh Menendez MD LAB - CHEMISTRY ORDERABLES Final Result Performing Organization Address [facility]/ZIP Co de Phone Number [address] [address], [place] [phone] * (ABNORMAL) PROTEIN ELECTROPHORESIS BLOOD (11/11/2024 1:28 PM CDT) Only the most recent of3 resultswithin the time period is included. Interpretation Serum PE Abnormal Pattern(A) Normal Pattern 11/14/2024 6:00 PM CDT [facility] Comment: Serum capillary electrophoresis shows characteristic bands corresponding to albumin, alpha and beta globulins and polyclonal immunoglobulins. There is a band of restricted electrophoretic mobility in the gamma region previously identified as an IgG lambda monoclonal immunoglobulin. Mello Carmona PhD, [facility] Clinical Pipe Straightener wheel filler *The electrophoresis pattern and the interpretation have been reviewed and verified by the teaching physician. Protein Total 6.3 6.0 - 8.3 g/dL 11/14/2024 6:00 PM T [facility] Albumin 3.2(L) 3.3 - 5.6 g/dL 11/14/2024 6:00 PM T [facility] Alpha-1 Globulins 0.4 0.2 - 0.4 g/dL 11/14/2024 6:00 PM T [facility] Alpha-2 Globulins 0.9 0.5 - 1.0 g/dL 11/14/2024 6:00 PM [facility] Beta Globulins 0.8 0.6 - 1.1 g/dL 11/14/2024 6:00 PM [facility] Gamma Globulins 1.0 0.6 - 1.6 g/dL 11/14/2024 6:00 PM T [facility] Monoclonal Component(s) 0.4(H) None Detected g/dL 11/14/2024 6:00 PM [facility] Blood BLOOD SPECIMEN / Unknown Lab Venipuncture / Unknown 11/11/2024 1:28 PM CDT 11/11/2024 1:30 PM CDT Adarsh Menendez MD LAB - CHEMISTRY ORDERABLES Final Result [facility] [address] [place] [address], [facility] [phone] * HEPATITIS C ANTIBODY (11/11/2024 1:28 PM CDT) Hepatitis C Antibody Non-react reji Non-reac tive 11/11/2024 2:33 PM CDT [facility] Comment:Hepatitis C Antibody screen indicates no serologic [...] MD LAB - CHEMISTRY ORDERABLES Final Result [address] [address], [place] [phone] * COMPLEMENT C3 (11/11/2024 1:28 PM CDT) Complement C3 144 82 - 193 mg/dL 11/11/2024 2:02 PM CDT [facility] Blood BLOOD SPECIMEN / Unknown Lab Venipuncture / Unknown 11/11/2024 1:28 PM CDT 11/11/2024 1:35 PM CDT us Adarsh Menendez MD LAB - CHEMISTRY ORDERABLES Final Result Performing Organization Address [facility]/ZIP Co de Phone Number [address] [address], [place] [phone] * (ABNORMAL) URINALYSIS REFLEX TO MICROSCOPIC NO CULTURE (11/02/2024 2:26 PM CDT) Color UA Yellow Yellow, Straw 11/02/2024 2:54 PM CDT [facility] Clarity UA Clear Clear 11/02/2024 2:54 PM CDT [facility] Glucose UA Normal Normal 11/02/2024 2:54 PM CDT [facility] Bilirubin UA Negative Negative 11/02/2024 2:54 PM CDT [facility] Ketone UA Negative Negative 11/02/2024 2:54 PM CDT [facility] Specific [place] UA 1.015 1.005 - 1.030 11/02/2024 2:54 PM CDT [facility] Blood UA 1+(A) Negative 11/02/2024 2:54 PM CDT [facility] pH UA 5.5 5.0 - 8.0 11/02/2024 2:54 PM CDT [facility] Protein UA 2+(A) Negative 11/02/2024 2:54 PM CDT [facility] Urobilinogen UA Normal Normal mg/dL 025 2:54 PM CDT [facility] Nitrite UA Negative Negative 11/02/2024 2:54 PM CDT [facility] Leukocyte Esterase UA Negative Negative 11/02/2024 2:54 PM CDT [facility] RBC UA 3-5 0 - 5 # /hpf 11/02/2024 2:54 PM CDT [facility] WBC UA 0-5 0 - 5 # /hpf 11/02/2024 2:54 PM CDT [facility] Bacteria UA None Seen None Seen 11/02/2024 2:54 PM CDT [facility] Squamous Epithelial Cells 0-2 0 - 5 /hpf 11/02/2024 2:54 PM CDT [facility] Mucus UA 1+ /LPF 11/02/2024 2:54 PM CDT [facility] Hyaline Casts 3-5(A) 0 - 2 /LPF 11/02/2024 2:54 PM CDT [facility] Urine URINE SPECIMEN OBTAINED BY CLEAN CATCH PROCEDURE / Unknown Collection / Unknown 11/02/2024 2:26 PM CDT 11/02/2024 2:41 PM CDT us Adarsh Menendez MD LAB - URINALYSIS ORDERABLES Kathleen l Result [address] [address], [facility] [phone] * PTH INTACT W/O CALCIUM (11/02/2024 1:21 PM CDT) PTH Intact 76.9 8.0 - 77.0 pg/mL 11/02/2024 2:28 PM CDT [facility] Blood BLOOD SPECIMEN / Unknown Lab Venipuncture / Unknown 11/02/2024 1:21 PM CDT 11/02/2024 1:57 PM CDT Adarsh Menendez MD LAB - CHEMISTRY ORDERABLES Final Result Performing Organization Address City/[facility]/ZIP Co de Phone Number [address] [address], [facility] [phone] * TRANSFERRIN (11/02/2024 1:21 PM CDT) Pathologist [facility] Transferrin 231 174 - 382 mg/dL 11/02/2024 2:32 PM CDT [facility] Blood BLOOD SPECIMEN / Unknown Lab Venipuncture / Unknown 11/02/2024 1:21 PM CDT 11/02/2024 1:43 PM CDT Adarsh Menendez MD LAB - CHEMISTRY ORDERABLES Final Result [address] [address], [place] [phone] * VITAMIN D 25-HYDROXY (11/02/2024 1:21 PM CDT) [facility] Vitamin D, 25 Hydroxy 49.9 30.0 - 80.0 ng/mL 11/02/2024 2:46 PM CDT [facility] Comment: The recommendations for 25-Hydroxy Vitamin [...] CHEMISTRY ORDERABLES Final Result Performing Organization Address City/[facility]/ZIP Co de Phone Number [address] [address], [place] [phone] * (ABNORMAL) CBC WITH DIFFERENTIAL (11/02/2024 1:21 PM CDT) Only the most recent of2 resultswithin the time period is included. [facility] WBC 10.4 4.0 - 10.7 x10E9/L 11/02/2024 2:17 PM [facility] RBC Count 3.98 3.90 - 5.20 x10E12/L 11/02/2024 2:17 PM [facility] Hemoglobin 11.8(L) 11.9 - 15.8 g/dL 11/02/2024 2:17 PM [facility] Hematocrit 36.3 34.8 - 46.1 % 11/02/2024 2:17 PM [facility] MCV 91.2 80.0 - 98.0 fL 11/02/2024 2:17 PM [facility] MCH 29.6 26.7 - 33.6 pg 11/02/2024 2:17 PM [facility] MCHC 32.5 31.7 - 36.3 g/dL 11/02/2024 2:17 PM [facility] RDW-CV 14.0 11.3 - 14.8 % 11/02/2024 2:17 PM [facility] Platelet Count 166 150 - 420 x10E9/L 11/02/2024 2:17 PM [facility] MPV 12.0(H) 7.8 - 11.4 fL 11/02/2024 2:17 PM [facility] Neutrophil % 71.7 41.0 - 74.0 % 11/02/2024 2:17 PM [facility] Lymphocyte % 17.1 17.0 - 47.0 % 11/02/2024 2:17 PM [facility] Monocyte % 6.5 3.0 - 11.0 % 11/02/2024 2:17 PM [facility] Eosinophil % 3.8 0.0 - 7.0 % 11/02/2024 2:17 PM [facility] Basophil % 0.4 0.0 - 1.6 % 11/02/2024 2:17 PM [facility] Immature Granulocytes % 0.5 0.0 - 1.0 % 11/02/2024 2:17 PM [facility] Neutrophil Absolute 7.46 1.60 - 7.50 x10E9/L 11/02/2024 2:17 PM [facility] Lymphocyte Absolute 1.77 1.00 - 4.40 x10E9/L 11/02/2024 2:17 PM CDT [facility] Monocyte Absolute 0.67 0.15 - 1.00 x10E9/L 11/02/2024 2:17 PM CDT [facility] Eosinophil Absolute 0.39 0.00 - 0.60 x10E9/L 11/02/2024 2:17 PM CDT [facility] Basophil Absolute 0.04 0.00 - 0.13 x10E9/L 11/02/2024 2:17 PM CDT [facility] Blood BLOOD SPECIMEN / Unknown Lab Venipuncture / Unknown 11/02/2024 1:21 PM CDT 11/02/2024 2:01 PM CDT us Adarsh Menendez MD LAB - HEMATOLOGY ORDERABLES Kathleen l Result [address] [address], [facility] [phone] * MAGNESIUM BLOOD (11/02/2024 1:21 PM CDT) Magnesium 1.9 1.6 - 2.6 mg/dL 11/02/2024 2:27 PM CDT [facility] Blood BLOOD SPECIMEN / Unknown Lab Venipuncture / Unknown 11/02/2024 1:21 PM CDT 11/02/2024 2:01 PM CDT us Adarsh Menendez MD LAB - CHEMISTRY ORDERABLES Final Result [address] [address], [place] [phone] * IRON BLOOD (11/02/2024 1:21 PM CDT) Iron 67 40 - 150 ug/dL 11/02/2024 2:32 PM CDT [facility] Blood BLOOD SPECIMEN / Unknown Lab Venipuncture / Unknown 11/02/2024 1:21 PM CDT 11/02/2024 1:43 PM CDT us Adarsh Menendez MD LAB - CHEMISTRY ORDERABLES Final Result Performing Organization Address City/[facility]/ZIP Co de Phone Number [address] [address], [facility] [phone] * FERRITIN (11/02/2024 1:21 PM CDT) Ferritin 130 13 - 204 ng/mL 11/02/2024 2:49 PM CDT [facility] Blood BLOOD SPECIMEN / Unknown Lab Venipuncture / Unknown 11/02/2024 1:21 PM CDT 11/02/2024 1:43 PM CDT us Adarsh Menendez MD LAB - CHEMISTRY ORDERABLES Final Result Performing Organization Address [facility] Co de Phone Number [address] [address], [facility] [phone] * VT LARYNGOSCOPY,FLEX FIBER,DIAGNOSTIC (10/24/2024 4:34 PM CDT) Narrative Rufino Toscano MD - 10/24/2024 4:34 PM CDT Rufino Toscano MD 10/24/2024 4:35 PM Laryngoscopy Procedure Note Findings: Vocal cord motion is intact. No evidence of cancer. Anesthesia: Lidocaine and Neosynephrine Endoscopy Type: Flexible Meigx-Bpqmttsvsbrdet-Mtkinplmgvtp Procedure Details: Informed consent was obtained. The [...] possible upgrade for her processor. Milton Crowder. [facility] Clinical Paper Testing Supervisor [facility] [address] [place] [address] ([facility]) [place] [address] Ness Rose AUDIOLOGY SERVICES ORDERABLES F inal Result * (ABNORMAL) AGUSTINA SERUM (09/15/2024 3:08 PM CDT) Immunofixation Serum Abnormal Pattern(A) Normal Pattern 09/20/2024 12:48 PM CDT [facility] Comment: Serum immunosubtraction identifies an IgG lambda monoclonal immunoglobulin migrating in the gamma region. Radha Rubio PhD, DAB(CC,TC) Clinical Pipe Straightener and Marketing Forecaster wheel filler *The electrophoresis pattern and the interpretation have been reviewed and verified by the teaching physician. Blood BLOOD SPECIMEN / Unknown Lab Venipuncture / Unknown 09/15/2024 3:08 PM CDT 09/15/2024 3:22 PM CDT Aubree Thomas MD LAB - CHEMISTRY ORDERABL ES Final Result [facility] [address] [place] [address], [facility] [phone] * (ABNORMAL) COMPREHENSIVE METABOLIC PANEL (09/15/2024 3:06 PM [facility]) BUN 39(H) 7 - 26 mg/dL 09/15/2024 3:53 PM [facility] Creatinine 1.86(H) 0.56 - 0.96 mg/dL 09/15/2024 3:53 PM [facility] Sodium 142 136 - 145 mmol/L 09/15/2024 3:53 PM [facility] Potassium 4.3 3.5 - 4.5 mmol/L 09/15/2024 3:53 PM [facility] Chloride 108(H) 98 - 107 mmol/L 09/15/2024 3:53 PM [facility] CO2 27 22 - 29 mmol/L 09/15/2024 3:53 PM [facility] Glucose 113(H) 70 - 99 mg/dL 09/15/2024 3:53 PM [facility] Calcium 8.5 8.4 - 10.2 mg/dL 09/15/2024 3:53 PM [facility] Protein Total 6.8 6.0 - 8.3 g/dL 09/15/2024 3:53 PM [facility] Albumin 3.1(L) 3.4 - 5.0 g/dL 09/15/2024 3:53 PM [facility] Bilirubin Total 0.4 0.2 - 1.2 mg/dL 09/15/2024 3:53 PM [facility] Alkaline Phosphatase 90 40 - 150 U/L 09/15/2024 3:53 PM [facility] ALT 13 5 - 55 U/L 09/15/2024 3:53 PM [facility] AST 18 5 - 34 U/L 09/15/2024 3:53 PM [facility] Anion Gap 7 6 - 16 09/15/2024 3:53 PM [facility] BUN/Creatinine Ratio 21 7 - 23 09/15/2024 3:53 PM [facility] Osmolality Calculated 304(H) 275 - 295 mOsm/kg 09/15/2024 3:53 PM CDT [facility] Albumin/Globulin Ratio 0.8(L) 1.1 - 2.3 09/15/2024 3:53 PM CDT [facility] eGFR by CKD-EPI 29(L) >=90 mL/min/1.7 3 m2 09/15/2024 3:53 PM CDT [facility] Blood BLOOD SPECIMEN / Unknown Lab Venipuncture / Unknown 09/15/2024 3:06 PM CDT 09/15/2024 3:22 PM CDT Narrative [facility] - 09/15/2024 3:53 PM CDT Estimated Glomerular Filtration Rate (eGFR) calculated using the CKD-EPI Creatinine Equation (2020), per the National Kidney Foundation and [place] Society of Nephrology recommendations. us Aubree Thomas MD LAB - CHEMISTRY ORDERABL ES Final Result Performing Organization Address City/[facility]/ZIP Co de Phone Number [address] [address], [facility] [phone] * IGM BLOOD (09/15/2024 3:06 PM CDT) IgM 125 37 - 286 mg/dL 09/15/2024 3:48 PM CDT [facility] Blood BLOOD SPECIMEN / Unknown Lab Venipuncture / Unknown 09/15/2024 3:06 PM CDT 09/15/2024 3:21 PM CDT us Aubree Thomas MD LAB - CHEMISTRY ORDERABL ES Final Result [address] [address], [facility] [phone] * IGG BLOOD (09/15/2024 3:06 PM CDT) IgG 1,300 767 - 1,590 mg/dL 09/15/2024 3:48 PM CDT [facility] Blood BLOOD SPECIMEN / Unknown Lab Venipuncture / Unknown 09/15/2024 3:06 PM CDT 09/15/2024 3:21 PM CDT us Aubree Thomas MD LAB - CHEMISTRY ORDERABL ES Final Result Performing Organization Address City/[facility]/ZIP Co de Phone Number [address] [address], [place] [phone] * IGA BLOOD (09/15/2024 3:06 PM CDT) IgA 214 61 - 356 mg/dL 09/15/2024 3:48 PM CDT [facility] Blood BLOOD SPECIMEN / Unknown Lab Venipuncture / Unknown 09/15/2024 3:06 PM CDT 09/15/2024 3:21 PM CDT Aubree Thomas MD LAB - CHEMISTRY ORDERABL ES Final Result Performing Organization Address [facility] Co de Phone Number [address] [address], [place] [phone] from Last 3 Months Insurance MEDICAID - [place] MEDICARE Advance Directives * Full Code (Latest Code Status on File) Date Activated Date Inactivated Comments 08/17/2023 9:20 AM 08/17/2023 2:23 PM * Full Code Date Activated Date Inactivated Comments 08/17/2023 9:06 AM 08/17/2023 9:20 AM * Full Code Date Activated Date Inactivated Comments 07/01/2022 12:41 PM 07/01/2022 3:54 PM Care Teams Ammonia Solution Preparer Relationship Specialty Start Date End Date Saul Marcelino MD [address] [place] [phone] PCP - General Family Medicine 04/20/24 Francia Hammonds MD [address] [facility] [address] [place] [address] Downstream Biomanufacturing Technician Nephrology 11/24/24 Andre Mccann MD [address] [place] [phone] Hematology and Oncology 11/24/24 [place] [address] [place] [address] Hematology and Oncology 11/24/24 [place] [address] [place] [address] Door Assembler/Oncologist Hematology and Oncology 11/24/24 Joan Wood MD [address] [place] [address] Door Assembler/Oncologist Hematology and Oncology 11/24/24 Lyudmila Bangura MD [facility] [address] Physician Hematology and Oncology 11/24/24 Gloria Alatorre MD [address] [place] [phone] Physician Hematology and Oncology 11/24/24 Mony Zaldivar, PharmD 11/24/24 Shirley Barahona, PharmD Pharmacist 11/24/24 Anastacia Garces RN Registered Nurse 11/24/24 Tabatha Solorzano 11/24/24 Ness Ortiz 11/24/24 Grisel Dobbins, CARTOGRAPHY TEACHER-ELECTRICAL ACCESSORIES II ASSEMBLER [facility] [place] [address] Nurse Practitioner Nurse Practitioner 11/24/24 Nannette Joshi, RN Registered Nurse 11/24/24 Sylwia Lovelace LCSW [address] [place] [address] Funds Transfer Clerk 11/24/24
--- OUTSIDE RECORDS SUMMARY | 2024-12-13 17:54 | XMS_ITS | Encounter Summary ---
Author Organization [facility] Address [facility] [place] [place] [address] Care Team Providers Care Fish Roe Technician Name Role Phone Saul Marcelino MD Primary Care Provider [phone] Francia Hammonds MD Unavailable [phone] Andre Mccann MD Unavailable [phone] Ana Andersen MD Unavailable [phone] Vincent Sandra MD Unavailable [phone] Joan Wood MD Unavailable Lyudmila Bangura MD Unavailable Gloria Alatorre MD Unavailable Mony Zaldivar PharmD Unavailable Unavaila ble Shirley Barahona PharmD Unavailable Unavailable Anastacia Garces RN Unavailable Unavailable Tabatha Solorzano Unavailable Unavailable Ness Ortiz Unavailable Sarah Grisel Singh BARREL POLISHER INSIDE-PLATING OPERATOR Unavailable Nannette Joshi RN Unavailable Unavailable Sylwia Lovelace LCSW Unavailable Unavailab le Reason for Visit * Reason Onset Date Comments Order 04/26/2024 Encounter Details Date Type Department Care Team (Late st Contact Info) Description 04/26/2024 Telephone [facility] - Sleep Services [address] [place] [address] Maura Simmons, APELISSA-PLATING OPERATOR [address] [place] [address] Order Social History Tobacco Use [...] on file Legal Sex 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 HEADLIGHT ADJUSTER Gender Identity Not on file Sexual Orientation [...] Assessment Author No 10/05/2023 3:12 PM Bella Hauqe RN * Does person have serious difficulty [...] for her CPAP Patient Call Back number: [phone] LIGHT ADJUSTER documented in this encounter Plan of Treatment Upcoming Encounters Date Type Department Care Team (Late st Contact Info) Description 01/04/2025 11:00 AM CDT Ancillary Procedure [facility] - Echosonography [address] [facility] [address] [place] [address] 01/05/2025 8:30 AM CDT Office Visit [facility] - Nephrology [address] [place] [address], [place] [phone] Francia Hammonds MD [address] [place] [address] [address] [place] [address] 02/06/2025 2:00 PM HEADLIGHT ADJUSTER Appointment [facility] CAT SCAN [address] [place] [phone] Beau Myrick MD [address] [place] [address] 2L DIV OF PULMONARY/[place] [address] 03/16/2025 2:00 PM HEADLIGHT ADJUSTER Office Visit [facility] - Neurology [address] [place] [address], [place] [phone] Gary Virgen, BARREL POLISHER INSIDE-PLATING OPERATOR [address] [place] [address] [address] [place] [phone] 03/21/2025 11:00 AM HEADLIGHT ADJUSTER Office Visit [facility] - Sleep Services [address] [facility] [address] [place] [address] Maura Simmons APNP-PLATING OPERATOR [address] [facility] [address] [place] [address] 06/07/2025 11:00 AM HEADLIGHT ADJUSTER Office Visit [facility] - Cardiology [address] [facility] [place] [address] Andrés Kaye MD [address] [facility] [address] [place] [address] 09/13/2025 1:45 PM CDT Appointment [facility] CANCER CARE DRAWSTATION [address] [facility]nd [place] [address] 09/13/2025 2:00 PM CDT Office Visit [facility] - Hematology/Oncology [address] [place] [phone] Aubree Thomas MD [address] [place] [phone] documented as of this encounter Goals Goal [...] on filedocumented in this encounter Care Teams Fish Roe Technician Relationship Specialty Start Date End Date Saul Marcelino MD [address] [place] [phone] PCP - General Family Medicine 04/20/24 Francia Hammonds MD [address] [facility] [address] [place] [address] Multimedia Authoring Specialist Nephrology 11/24/24 Andre Mccann MD [address] [place] [phone] Hematology and Oncology 11/24/24 Ana Andersen MD [address] [place] [address] Hematology and Oncology 11/24/24 Vincent Sandra MD [address] [place] [address] [employer] Supervisor/Oncologist Hematology and Oncology 11/24/24 Joan Wood MD [address] [place] [address] [employer] Supervisor/Oncologist Hematology and Oncology 11/24/24 Lyudmila Bangura MD [address] [address] Physician Hematology and Oncology 11/24/24 Gloria Alatorre MD [address] [place] [phone] Physician Hematology and Oncology 11/24/24 Mony Zaldivar, PharmD 11/24/24 Shirley Barahona, PharmD Pharmacist 11/24/24 Anastacia Garces, RN Registered Nurse 11/24/24 Tabatha Solorzano 11/24/24 Ness Ortiz 11/24/24 Grisel Dobbins, BARREL POLISHER INSIDE-PLATING OPERATOR [address] [place] [phone] Nurse Practitioner Nurse Practitioner 11/24/24 Nannette Joshi, RN Registered Nurse 11/24/24 Sylwia Lovelace, SEAN [address] [place] [address] Residential Care Officer 11/24/24 documented as of this encounter
--- OUTSIDE RECORDS SUMMARY | 2024-12-13 17:54 | XMS_ITS | Clinical Summary ---
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 Nontoxic [...] 03/15/2020 Assessment & Plan (04/26/2020 3:09 PM WHEEL LOADER OPERATOR): Controlled with medication including Lasix CKD - continue medication per PCP Assessment & Plan (03/15/2020 3:58 PM WHEEL LOADER OPERATOR): Controlled with medication including Lasix CKD - continue medication per PCP Mixed hyperlipidemia 03/15/2020 Hypercalcemia 03/15/2020 Assessment & Plan (04/26/2020 3:09 PM WHEEL LOADER OPERATOR): Detected on labs on 03/09/20 Calcium of [...] functions Assessment & Plan (03/15/2020 3:57 PM WHEEL LOADER OPERATOR): Detected on recent labs on 03/09/20 Calcium [...] on file Legal Sex Female 12:19 AM WHEEL LOADER OPERATOR Gender Identity Not on file Sexual [...] PM CDT MR Weber Mamm R Acc#: [id number] DATE OF EXAM: Oct 05 2012 Performed [...] - 08/07/2016 MR Weber Mamm R Acc#: [id number] DATE OF EXAM: Oct 05 2012 Performed [...] Most Recently Relevant to Health Maintenance Insurance [facility] MEDICARE MEDICARE IDPA Advance Directives For more information, please contact: [phone] * Full Code (Latest Code Status on File) Date Activated Date Inactivated Comments 11/28/2020 7:15 PM 11/29/2020 7:45 PM Care Teams Payroll Master Relationship Specialty Start Date End Date Saul Marcelino MD [address] [place] [address] PCP - General Family Practice 08/10/24
--- OUTSIDE RECORDS SUMMARY | 2024-12-13 17:54 | XMS_ITS | Encounter Summary ---
Author Organization [facility] Address [facility] [address] Care Team Providers Care Belt Picker Name Role Phone Timmy Baldwin MD Primary Care Provider + [phone] Dontae Min DO Primary Care Provider [phone] Dontae Min DO Primary Care Provider [phone] Saul Marcelino MD Primary Care Provider + [phone] None, Physician Primary Care Provider Unavailabl e Saul Marcelino MD Primary Care Provider [phone] Francia Hammonds MD Unavailable [phone] Andre Mccann MD Unavailable [phone] Ana Andersen MD Unavailable [phone] Vincent Sandra MD Unavailable Joan Wood MD Unavailable Lyudmila Bangura MD Unavailable Gloria Alatorre MD Unavailable Mony Zaldivar PharmD Unavailable Unavaila Shirley Barillas PharmD Unavailable Unavailable Anastacia Garces RN Unavailable Unavailable Tabatha Solorzano Unavailable Unavailable Ness Ortiz Unavailable Sarah Grisel Singh FEATURES REPORTER-RN ACUTE DIALYSIS Unavailable Nannette Joshi RN Unavailable Unavailable Sylwia LovelaceW Unavailable Unavailab le Encounter Details Date Type Department Care Team (Latest Contact Info) Description 05/14/2022 Ambulatory Consult [facility] TXP NOE CSM [address]L [address] [place] [address] Shelley Ortega, RN Cystadenoma, hepatobiliary ; Cystic [...] on file Legal Sex 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 EXERCISE SCIENCE INSTRUCTOR Gender Identity Not on file Sexual Orientation Not on file COVID-19 Exposure Response Date Recorded In the last 10 days, have yo u been in contact with someone who was confirmed or suspected to have Coronavirus/COVID-19? No / Unsure 04/24/2022 1:12 PM EXERCISE SCIENCE INSTRUCTOR documented as of this encounter Plan of Treatment Upcoming Encounters Date Type Department Care Team (Late st Contact Info) Description 01/04/2025 11:00 AM CDT Ancillary Procedure [facility] - Echosonography [address] [facility], [address] [place] [address] 01/05/2025 8:30 AM CDT Office Visit [facility] - Nephrology [address] [place] [address] Francia Hammonds MD [address] [facility] 3L [place] [address] 02/06/2025 2:00 PM EXERCISE SCIENCE INSTRUCTOR Appointment [facility] CAT SCAN [address] [place] [address] Beau Myrick MD 1225 [facility] 2L DIV OF PULMONARY/[place] [address] 03/16/2025 2:00 PM EXERCISE SCIENCE INSTRUCTOR Office Visit [facility] - Neurology 1225 [facility], [place] [address] Gary Virgen APRN-RN ACUTE DIALYSIS [address] [place] [address] 03/21/2025 11:00 AM EXERCISE SCIENCE INSTRUCTOR Office Visit [facility] - Sleep Services [address] [facility] [address] [place] [address] Maura Simmons APNP-RN ACUTE DIALYSIS [address] [facility] [address] [place] [address] 06/07/2025 11:00 AM EXERCISE SCIENCE INSTRUCTOR Office Visit [facility] - Cardiology [address] [facility], [facility] [address] [place] [address] Andrés Kaye MD [address] [facility] [address] [place] [address] 09/13/2025 1:45 PM CDT Appointment [facility] CANCER CARE DRAWSTATION 365[address] [facility], 2nd [place] [address] 09/13/2025 2:00 PM CDT Office Visit [facility] Group - Hematology/Oncology [address] [place] [address] Aubree Thomas MD [address] [place] [address] documented as of this encounter Goals Goal [...] (HCC) documented in this encounter Care Teams Belt Picker Relationship Specialty [place] [address] [address] PCP - General 05/12/22 06/03/22 Dontae Min DO [address] [address] PCP - General 06/04/22 06/09/22 Dontae Min DO [address] [facility] [address] [place] [address] PCP - General 06/10/22 09/16/22 Saul Marcelino MD [address] [place] [address] PCP - General Family Medicine 09/17/22 02/09/24 None, Physician [facility] [place] [address] PCP - General 02/10/24 04/19/24 Saul Marcelino MD [address] [place] [address] PCP - General Family Medicine 04/20/24 [place] [address] [place] [address] [place] [address] Earth Science Technician Nephrology 11/24/24 Andre Mccann MD [address] [place] [address] Hematology and Oncology 11/24/24 [place] [address] [place] [address] Hematology and Oncology 11/24/24 Vincent Sandra MD [address] [place] [address] Foundation Digger/Oncologist Hematology and Oncology 11/24/24 Joan Wood MD [address] [place] [address] Foundation Digger/Oncologist Hematology and Oncology 11/24/24 Lyudmila Bangura MD [facility] [address] Physician Hematology and Oncology 11/24/24 [place] [address] [place] [phone] Physician Hematology and Oncology 11/24/24 Mony Zaldivar, PharmD 11/24/24 Shirley Barahona, PharmD Pharmacist 11/24/24 Anastacia Garces RN Registered Nurse 11/24/24 Tabatha Solorzano 11/24/24 Ness Ortiz 11/24/24 Grisel Dobbins, INDRA-RN ACUTE DIALYSIS [facility] [place] [address] Nurse Practitioner Nurse Practitioner 11/24/24 Nannette Joshi, RN Registered Nurse 11/24/24 Sylwia Lovelace, PROJECT ACCOUNTANT [address] [place] [address] Newspaper Peddler 11/24/24 documented as of this encounter
--- OUTSIDE RECORDS SUMMARY | 2024-12-13 17:54 | XMS_ITS ---
Author Organization [facility] Office Building A Address [address] [place] [address] Care Team Providers Care Information Security Specialist Name Role Phone Saul Marcelino MD Primary Care Provider [phone] Active Problems Problem Noted Date Diagnosed Date Renal disorder 12/08/2023 Overview (12/08/2023): Kidney failure Generalized anxiety disorder with panic attacks 05/14/2023 Leg cramps 05/14/2023 BERTA (obstructive sleep apnea) 05/14/2023 PND (paroxysmal nocturnal dyspnea) 05/14/2023 Restless legs syndrome (RLS) 05/14/2023 Stage 3b chronic kidney disease 05/14/2023 Cystic disease of liver 09/18/2022 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
--- OUTSIDE RECORDS SUMMARY | 2024-12-13 17:54 | XMS_ITS | Encounter Summary ---
Author Organization [facility] Address [address] [facility] [place] [address] Care Team Providers Care Principal Gifts Officer Name Role Phone Dontae Min DO Primary Care Provider [phone] Timmy Baldwin MD Primary Care Provider + [phone] Dontae Min DO Primary Care Provider [phone] Dontae Min DO Primary Care Provider [phone] Saul Marcelino MD Primary Care Provider [phone] None, Physician Primary Care Provider Unavailabl e Saul Marcelino MD Primary Care Provider [phone] Francia Hammonds MD Unavailable [phone] Andre Mccann MD Unavailable [phone] Ana Andersen MD Unavailable [phone] Vincent Sandra MD Unavailable Joan Wood MD Unavailable Lyudmila Bangura MD Unavailable Gloria Alatorre MD Unavailable Mony Zaldivar PharmD Unavailable Unavaila Shirley Barillas PharmD Unavailable Unavailable Anastacia Garces RN Unavailable Unavailable Tabatha Solorzano Unavailable Unavailable eNss Ortiz Unavailable Sarah josi Shirleya, Grisel BEREAVEMENT PROGRAM COORDINATOR-CHAIN MAKER Unavailable [phone] Nannette Joshi RN Unavailable Unavailable Sylwia Lovelace SALES AGENT PEST CONTROL SERVICE Unavailable Unavailab le Encounter Details Date Type Department Care Team (Late Contact Info) Description 04/17/2022 Ambulatory Consult [facility] TXP NOE CSM [address]L [address] [place] [address] Shelley Ortega, RN Social History Tobacco Use [...] on file Legal Sex 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 WEIGH TANK OPERATOR Gender Identity Not on file Sexual Orientation Not on file COVID-19 Exposure Response Date Recorded In the last 10 days, have yo u been in contact with someone who was confirmed or suspected to have Coronavirus/COVID-19? No / Unsure 04/10/2022 3:01 PM WEIGH TANK OPERATOR documented as of this encounter Plan of Treatment Upcoming Encounters Date Type Department Care Team (Late Contact Info) Description 01/04/2025 11:00 AM CDT Ancillary Procedure [facility] - Echosonography [address] [facility] [address] [place] [address] 01/05/2025 8:30 AM CDT Office Visit [facility] - Nephrology [address] [place] [address] Francia Hammonds MD 1225 [facility] 3L [place] [address] 02/06/2025 2:00 PM WEIGH TANK OPERATOR Appointment [facility] CAT SCAN [address] [place] [phone] Beau Myrick MD 1225 [facility] 2L DIV OF PULMONARY/[place] [address] 03/16/2025 2:00 PM WEIGH TANK OPERATOR Office Visit [facility] - Neurology [address] [facility], [place] [address] Gary Virgen APRN-CHAIN MAKER [address] [place] [address] 03/21/2025 11:00 AM WEIGH TANK OPERATOR Office Visit [facility] - Sleep Services [address] [facility] [address] [place] [address] Maura Simmons APELISSA-CHAIN MAKER [address] [facility] [address] [place] [address] 06/07/2025 11:00 AM WEIGH TANK OPERATOR Office Visit [facility] - Cardiology [address] [facility], [address] [place] [address] Andrés Kaye MD [address] [facility] [address] [place] [address] 09/13/2025 1:45 PM CDT Appointment [facility] CANCER CARE DRAWSTATION 3655 [facility], 2nd [place] [address] 09/13/2025 2:00 PM CDT Office Visit [facility] - Hematology/Oncology 3655 [place] [address] Aubree Thomas MD [address] [place] [address] documented as of this encounter Goals Goal [...] on filedocumented in this encounter Care Teams Principal Gifts Officer Relationship Specialty Start Date End Date Dontae Min DO [address] [place] [address] PCP - General 06/15/19 05/11/22 [place] [address] [address] PCP - General 05/12/22 06/03/22 Dontae Min DO [address] [address] PCP - General 06/04/22 06/09/22 Dontae Min DO 6812 [facility] 1 [place] [address] PCP - General 06/10/22 09/16/22 Saul Marcelino MD [address] [place] [address] PCP - General Family Medicine 09/17/22 02/09/24 None, Physician 1212 [place] [address] PCP - General 02/10/24 04/19/24 Saul Marcelino MD [address] [place] [address] PCP - General Family Medicine 04/20/24 [place] [address] [place] [address] [place] [address] Central Service Tech Nephrology 11/24/24 Andre Mccann MD [address] [place] [address] Hematology and Oncology 11/24/24 Ana Andersen MD [address] [place] [address] Hematology and Oncology 11/24/24 Vincent Sandra MD [address] [place] [address] Furniture Rental Consultant/Oncologist Hematology and Oncology 11/24/24 Joan Wood MD [address] [place] [address] Furniture Rental Consultant/Oncologist Hematology and Oncology 11/24/24 Lyudmila Bangura MD [address] [address] Physician Hematology and Oncology 11/24/24 Gloria Alatorre MD [address] [place] [address] Physician Hematology and Oncology 11/24/24 Mony Zaldivar, PharmD 11/24/24 Shirley Barahona, PharmD Pharmacist 11/24/24 Anastacia Garces RN Registered Nurse 11/24/24 Tabatha Solorzano 11/24/24 Ness Ortiz 11/24/24 Grisel Dobbins, INDRA-CHAIN MAKER [facility] [place] [address] Nurse Practitioner Nurse Practitioner 11/24/24 Nannette Joshi, RN Registered Nurse 11/24/24 Sylwia Lovelace, SALES AGENT PEST CONTROL SERVICE [address] [place] [address] Mri Tech 11/24/24 documented as of this encounter
--- OUTSIDE RECORDS SUMMARY | 2024-12-13 17:54 | XMS_ITS | Encounter Summary ---
Author Organization [facility] Address [address] [facility] [place] [address] Care Team Providers Care Behavioral Health Clinician Name Role Phone Saul Marcelino MD Primary Care Provider [phone] None, Physician Primary Care Provider Unavailabl e Saul Marcelino MD Primary Care Provider [phone] Francia Hammonds MD Unavailable [phone] Andre Mccann MD Unavailable [phone] Ana Andersen MD Unavailable [phone] Vincent Sandra MD Unavailable [phone] Joan Wood MD Unavailable Lyudmila Bangura MD Unavailable Gloria Alatorre MD Unavailable Mony Zaldivar PharmD Unavailable Unavaila Shirley Barillas PharmD Unavailable Unavailable Anastacia Garces RN Unavailable Unavailable Tabatha Solorzano Unavailable Unavailable Ness Ortiz Unavailable Sarah Grisel Singh TRADE SHOW SPECIALIST-ELEVATOR CONSTRUCTOR HYDRAULIC Unavailable [phone] Nannette Joshi RN Unavailable Unavailable Sylwia LovelaceW Unavailable Unavailab le Encounter Details Date Type Department Care Team (Late st Contact Info) Description 11/06/2022 Telephone [facility] - Neurology [facility]5 [facility], [facility] [place] [address] Taylor Perry MD Social History Tobacco Use [...] on file Legal Sex 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 DISABILITY INSURANCE CLAIM EXAMINER Gender Identity Not on file Sexual [...] Group - Echosonography [address] [facility] [address] [place] [address] 01/05/2025 8:30 AM CDT Office [facility] - Nephrology [address] [place] [address], [place] [address] Francia Hammonds MD 12[address] [facility] 3L [place] [address] 02/06/2025 2:00 PM DISABILITY INSURANCE CLAIM EXAMINER Appointment [facility] CAT SCAN 1201 [place] [address] Beau Myrick MD 1225 [facility] 2L DIV OF PULMONARY/[place] [address] 03/16/2025 2:00 PM DISABILITY INSURANCE CLAIM EXAMINER Office Visit [facility] - Neurology [address] [place] [address], [place] [address] Gary Virgen APRN-ELEVATOR CONSTRUCTOR HYDRAULIC 1225 [facility] 1L [place] [address] 03/21/2025 11:00 AM DISABILITY INSURANCE CLAIM EXAMINER Office Visit [facility] - Sleep Services [address] [facility] 550 [place] [address] Maura Simmons, APNP-ELEVATOR CONSTRUCTOR HYDRAULIC [address] [facility] 550 [place] [address] 06/07/2025 11:00 AM DISABILITY INSURANCE CLAIM EXAMINER Office Visit [facility] Group - Cardiology [address] [facility], [address] [place] [address] Andrés Kaye MD [address] [facility] [address] [place] [address] 09/13/2025 1:45 PM CDT Appointment [facility] CANCER CARE DRAWSTATION 3655 [facility], 2nd [place] [address] 09/13/2025 2:00 PM CDT Office Visit [facility] Group - Hematology/Oncology [address]5 [place] [address] Aubree Thomas MD [address]5 [place] [address] documented as of this encounter Goals Goal [...] on filedocumented in this encounter Care Teams Behavioral Health Clinician Relationship Specialty Start Date End Date Saul Marcelino MD 610 [place] [address] PCP - General Family Medicine 09/17/22 02/09/24 None, Physician 1212 [place] [address] PCP - General 02/10/24 04/19/24 Saul Marcelino MD [address] [place] [address] PCP - General Family Medicine 04/20/24 Francia Hammonds MD [address] [facility] 3L [place] [address] Photo Editor Nephrology 11/24/24 Andre Mccann MD [address] [place] [address] Hematology and Oncology 11/24/24 [place] [address] [place] [address] Hematology and Oncology 11/24/24 [place] [address] [place] [address] Milk Inspector/Oncologist Hematology and Oncology 11/24/24 Joan Wood MD [address] [place] [address] Milk Inspector/Oncologist Hematology and Oncology 11/24/24 Lyudmila Bangura MD [address] [address] Physician Hematology and Oncology 11/24/24 Gloria Alatorre MD [address]5 [place] [address] Physician Hematology and Oncology 11/24/24 Mony Zaldivar, PharmD 11/24/24 Shirley Barahona, PharmD Pharmacist 11/24/24 Anastacia Garces, RN Registered Nurse 11/24/24 Tabatha Solorzano 11/24/24 Ness Ortiz 11/24/24 Grisel Dobbins APRN-ELEVATOR CONSTRUCTOR HYDRAULIC [address] [place] [address] Nurse Practitioner Nurse Practitioner 11/24/24 Nannette Joshi, KIMO Registered Nurse 11/24/24 Sylwia Lovelace, SEAN [address] [place] [address] Manager Underwriting 11/24/24 documented as of this encounter
--- OUTSIDE RECORDS SUMMARY | 2024-12-13 17:54 | XMS_ITS | Encounter Summary ---
Author Organization [facility] Address [address] [facility] [place] [address] Care Team Providers Care Forming Machine Upkeep Mechanic Name Role Phone Saul Marcelino MD Primary Care Provider [phone] None, Physician Primary Care Provider Unavailabl e Saul Marcelino MD Primary Care Provider [phone] Francia Hammonds MD Unavailable [phone] Andre Mccann MD Unavailable [phone] Ana Andersen MD Unavailable [phone] Vincent Sandra MD Unavailable [phone] Joan Wood MD Unavailable Lyudmila Bangura MD Unavailable Gloria Alatorre MD Unavailable Mony Zaldivar PharmD Unavailable Unavaila Shirley Barillas PharmD Unavailable Unavailable Anastacia Garces RN Unavailable Unavailable Tabatha Solorzano Unavailable Unavailable Ness Ortiz Unavailable Sarah Grisel Singh AIR TECHNICIAN-DIRECTOR INTERNATIONAL Unavailable Nannette Joshi RN Unavailable Unavailable Sylwia LovelaceW Unavailable Unavailab le Encounter Details Date Type Department Care Team (Late st Contact Info) Description 07/22/2023 Telephone [facility] - Neurology [facility] [facility], [facility] [place] [address] Taylor Perry MD Social History Tobacco Use [...] file Legal Sex 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 VICE PRESIDENT SALES Gender Identity Not on file Sexual Orientation [...] Entry Date Author Yes 06/08/2023 11:20 AM VICE PRESIDENT SALES Declue, Michelle A, RN documented in this encounter Miscellaneous Notes * Telephone Encounter - [place] - 07/22/2023 3:30 PM CDT Pt is calling in today because she had a CT scan w contrast on her chest and trying to find out theresults. Callback number is [phone] documented in this encounter Plan of Treatment Upcoming Encounters Date Type Department Care Team (Late st Contact Info) Description 01/04/2025 11:00 AM CDT Ancillary Procedure [facility] [address] [facility] [address] [place] [address] 01/05/2025 8:30 AM CDT Office Visit [facility] - Nephrology [address] [place] [address], [place] [phone] Francia Hammonds MD [address] [facility] 3L [place] [address] 02/06/2025 2:00 PM VICE PRESIDENT SALES Appointment [facility] [address] [place] [phone] Beau Myrick MD [address] [place] [address] 2L DIV OF PULMONARY/[place] [address] 03/16/2025 2:00 PM VICE PRESIDENT SALES [facility] [address] [place] [address], [place] [phone] Gary Virgen APRN-DIRECTOR INTERNATIONAL [address] [place] [address] 1L [place] [phone] 03/21/2025 11:00 AM VICE PRESIDENT SALES Office [facility] - Sleep Services [address] [facility] [address] [place] [address] Maura Simmons APNP-DIRECTOR INTERNATIONAL [address] [facility] [place] [facility] [address] [place] [address] 06/07/2025 11:00 AM VICE PRESIDENT SALES Office Visit [facility] - Cardiology [address] [facility] [place] [facility], [address] [place] [address] Andrés Kaye MD [address] [facility] [address] [place] [address] 09/13/2025 1:45 PM CDT Appointment [facility]RAW[facility] [address] [facility], 2nd [place] [address] 09/13/2025 2:00 PM CDT Office Visit [facility] - Hematology/Oncology [address] [place] [phone] Aubree Thomas MD [address] [place] [phone] documented as of this encounter Goals Goal [...] on filedocumented in this encounter Care Teams Forming Machine Upkeep Mechanic Relationship Specialty Start Date End Date Saul Marcelino MD [address] [place] [phone] PCP - General Family Medicine 09/17/22 02/09/24 None, Physician [address] [place] [address] PCP - General 02/10/24 04/19/24 Saul Marcelino MD [address] [place] [phone] PCP - General Family Medicine 04/20/24 Francia Hammonds MD [address] [place] [address] 3L [place] [address] Farrowing Manager Nephrology 11/24/24 Andre Mccann MD [address] [place] [phone] Hematology and Oncology 11/24/24 Ana Andersen MD [address] [place] [address] Hematology and Oncology 11/24/24 Vincent Sandra MD [address] [place] [phone] Bike Technician/Oncologist Hematology and Oncology 11/24/24 Joan Wood MD [address] [place] [id number] Bike Technician/Oncologist Hematology and Oncology 11/24/24 Lyudmila Bangura MD [address] [address] Physician Hematology and Oncology 11/24/24 Gloria Alatorre MD [address] [place] [phone] Physician Hematology and Oncology 11/24/24 Mony Zaldivar, PharmD 11/24/24 Shirley Barahona, GodwinD Pharmacist 11/24/24 Anastacia Garces, RN Registered Nurse 11/24/24 Tabatha Solorzano 11/24/24 Ness Ortiz 11/24/24 Grisel Dobbins, INDRA-POP [address] [place] [phone] Nurse Practitioner Nurse Practitioner 11/24/24 Nannette Joshi, KIMO Registered Nurse 11/24/24 Sylwia Lovelace, WARD NURSE [address] [place] [address] Freight Separator 11/24/24 documented as of this encounter
[2024-12-13 17:55] LABS: Alanine Aminotransferase 13 U/L (6-35); Albumin Level 3.3 g/dL (3.5-5.1); Alkaline Phosphatase 95 U/L (38-126); Anion Gap 5 mmol/L (4-12); Aspartate Amino Transferase 28 U/L (14-36); Bilirubin,Total 0.3 mg/dL (0.2-1.3); Blood Urea Nitrogen 42 mg/dL (7-17); Calcium 8.5 mg/dL (8.4-10.2); Carbon Dioxide 28 mmol/L (22-30); Chloride 106 mmol/L (98-107); Estimated CRCL calculation 20 ml/min; Estimated Glomerular Filt Rate 21; Glucose 94 mg/dL (65-110); Magnesium 2.2 mg/dL (1.6-2.3); Potassium 4.3 mmol/L (3.4-5.0); Sodium 139 mmol/L (137-145); Total Protein 6.7 g/dL (6.3-8.2)
[2024-12-13 18:03] LABS: Troponin I < 0.012 ng/mL (0.000-0.034)
[2024-12-13] MEDS: SODIUM CHLORIDE 0.9% IV 1,000 ML 999 ML IV CONT (18:25)
[2024-12-13 18:51] LABS: Add Urine Microscopic? YES; Appearance Urine Clear (Clear); Glucose Urine UA Negative (Negative); Leukocyte Esterase Ur Negative LEU/UL (Negative); Nitrate Urine Negative (Negative); Specific Grav Ur 1.016 (1.001-1.035)
[2024-12-13] MEDS: HYDROcodone/acetaminophen (*CRX) 5-325 MG TABLET 1 TAB PO (20:00)
--- NOTE | 2024-12-13 21:47 | ADMIMU ---
This patient, Eduarda Wall, was admitted to IMU status, and placed in IMU Room 205-02. Patient/family oriented to hospital policies and general routines including ID bracelet, bed and alarms, visiting hours, pain management, procedures, bathroom and other care routines, personal items, smoking policy, room service/diet, and visiting hours. Valuables list has been completed. Information on how to activate the Rapid Response Team has been discussed. Patient/Family are encouraged to report perceived risks to care and to ask questions if they do not understand what they are told or what they should do.
--- NOTE | 2024-12-13 22:36 | PCRCNOTE ---
Pt does not want to wear CPAP due to open sore in mouth RN is aware
[2024-12-13] MEDS: SODIUM CHLORIDE 0.9% IV 1,000 ML 75 ML IV CONT (22:41)
[2024-12-14] VITALS (23 sets, daily range): BP systolic 145–192; BP diastolic 59–84; PULSE 48–61; RESP 15–20; TEMP 36.4–36.9; O2SAT 92–99
--- NOTE | 2024-12-14 | ECHO_ITS ---
Patient Info Name: Eduarda Wall Age: 69 years : 1955 Gender: Female Ht: 61 in Wt: 168 lbs BSA: 1.84 m2 HR: 53 bpm BP: 192 / 64 mmHg Technical Quality: Good Exam Date: 12/14/2024 9:00 AM Patient Status: I Admit Date: 12/14/2024 Exam Type: CA echo doppler color flow Complete two-dimensional, color flow and Doppler transthoracic echocardiogram is performed. Staff Referring Physician: Loren Luther Imaging Scheduler: Abiodun Ray III Attending Provider: Rosas Martins Summary 1. Complete two-dimensional, color flow and Doppler transthoracic echocardiogram is performed. 2. Left ventricular chamber dimension is normal. 3. Left ventricular systolic function is normal, estimated at 60-65. 4. There is moderate concentric increased left ventricular wall thickness. 5. The left ventricular diastolic function is grade I diastolic dysfunction. 6. E/e' 11 is mildly elevated. 7. Right ventricular chamber dimension is mildly enlarged. 8. Left atrial chamber dimension is moderately enlarged. 9. Right atrial chamber dimension is mildly enlarged. 10. There is moderate aortic valve sclerosis. 11. No pulmonary hypertension, estimated pulmonary arterial systolic pressure is 20 mmHg. Left Ventricle E/e' 11 is mildly elevated. Left ventricular chamber dimension is normal. Left ventricular systolic function is normal, estimated at 60-65. There is moderate concentric increased left ventricular wall thickness. The left ventricular diastolic function is grade I diastolic dysfunction. Right Ventricle Right ventricular chamber dimension is mildly enlarged. Right ventricular systolic function is normal and with normal TAPSE 2.1 cm. Left Atria Left atrial chamber dimension is moderately enlarged. Right Atria Right atrial chamber dimension is mildly enlarged. Aortic Valve The aortic valve is trileaflet. There is moderate aortic valve sclerosis. There is no aortic valve stenosis. There is no aortic valve regurgitation. Pulmonic Valve There is no pulmonic regurgitation. Mitral Valve There is no mitral valve stenosis. There is no mitral valve regurgitation. Tricuspid Valve There is no tricuspid valve regurgitation. No pulmonary hypertension, estimated pulmonary arterial systolic pressure is 20 mmHg. Pericardium/Pleural There is no pericardial effusion. Inferior Vena Cava Normal inferior vena cava with >50% collapse upon inspiration consistent with normal right atrial pressure, 5 mmHg. Aorta The aortic root size at the sinus of Valsalva is normal. Left Ventricular Outflow Tract Name Value Normal LVOT 2D LVOT Diameter 2.1 cm LVOT Doppler LVOT Peak Velocity 109 cm/s LVOT Peak Gradient 5 mmHg LVOT Mean Gradient 2 mmHg LVOT VTI 31 cm LVOT VTI/AV VTI Ratio 0.8 LVOT Stroke Volume 103 ml LVOT CO 13.2 l/min LVOT CI 7.2 l/min/m2 Pulmonic Valve Name Value Normal PV Doppler PV Peak Velocity 163 cm/s PV Peak Gradient 11 mmHg PV Mean Gradient 5 mmHg Mitral Valve Name Value Normal MV Doppler MV Peak Gradient 6 mmHg MV Mean Gradient 2 mmHg MV Area (Cont Eq VTI) 3.3 cm2 MV Diastolic Function MV E Peak Velocity 88 cm/s MV A Peak Velocity 117 cm/s MV E/A 0.8 MV Decel Time (PW) 381 ms MV Annular TDI MV E/e' (Septal) 11.7 MV E/e' (Lateral) 12.0 MV E/e' (Average) 11.9 Tricuspid Valve Name Value Normal TV Regurgitation Doppler TR Peak Velocity 193 cm/s TR Peak Gradient 15 mmHg Estimated PAP/RSVP RA Pressure 5 mmHg <=5 PA Systolic Pressure 20 mmHg <36 RV Systolic Pressure 20 mmHg <36 TV Annular TDI TV Lateral Svetlana s' Velocity 14.7 cm/s >=9.5 Aortic Valve Name Value Normal AV Doppler AV Peak Velocity 181 cm/s AV Peak Gradient 13 mmHg AV Mean Gradient 6 mmHg AV VTI 39 cm AV Area (Cont Eq VTI) 2.6 cm2 >=3.0 AV Area (Cont Eq Jamir) 2.0 cm2 AV DI (Jamir) 0.60 AV Regurgitation 2D LVOT Area 3.4 cm2 Ventricles Name Value Normal LV Dimensions 2D/MM IVS Diastolic Thickness (2D) 1.5 cm 0.6-1.0 LVID Diastole (2D) 4.2 cm 3.8-5.2 LVIW Diastolic Thickness (2D) 1.5 cm 0.6-0.9 LVID Systole (2D) 2.8 cm 2.2-3.5 LVOT Diameter 2.1 cm LV Mass (2D Cubed) 253.22 g 67.00-162.00 LV Mass Index (2D Cubed) 137 g/m2 43-95 Relative Wall Thickness (2D) 0.72 <=0.42 LV Fractional Shortening/Ejection Fraction 2D/MM LV Fractional Shortening (2D) 34 % 27-45 LV EF (2D Teichholz) 64 % Atria Name Value Normal LA Dimensions LA Volume (4C A-L) 71 ml RA Dimensions RA Systolic Major [place] Length (4C) 5.0 cm 2.2-2.8 RA Area (4C) 20.0 cm2 <=18.0 Report Signatures
--- NOTE | 2024-12-14 00:18 | PM.IMHP ---
H&P: HPI History of Present Illness Date/Time: 12/14/24 00:18 Chief Complaint: Syncope, hypertension Narrative: This is a 69 year old female patient who is admitted to the hospital with Syncope, MIREYA on CKD and hypertensive urgency after a fall 2 nights ago. Today she states that she passed out. Workup in the ER shows worsening of CKD with decrease in estimated GFR to 21 and rise of Cr to 2.30. A year ago her estimated GFR was around 40. Patient also noted to be bradycardic and hypertensive with complaints of headache. Imaging completed including CT scan of head, facial bones, cervical spine, CXR and bilateral knee xrays. Patient received 1000 mL Normal Saline bolus in ER and started on continuous fluids at 125 mL/hr which we decreased to 75 mL/hr. Patient received 2 doses of IV hydralazine to obtain a blood pressure under 180 systolic. She was admitted to IMU due to bradycardia and highly elevated blood pressure. Ordered Echocardiogram due to syncope, last on file from 2+ years ago showed grade 1 diastolic dysfunction but normal EF. Patient reports that she has been experiencing episodes dizziness with syncope more frequently over the last year or so states she has passed about 4 times in the last year. Last episode was a few months ago. She states that she has worn heart monitors to try to catch in irregular rhythm. Additionally she reports that her blood pressure is usually better controlled with 120/67 seems to be her average however she is in 180s to 190s systolic. Patient has a history of COPD and states that she wants to establish with a city controller locally but specifically mentions she does not want to see Dr. Heredia. Patient sees Cardiology and Nephrology at [facility]. Patient uses a cochlear implant to be able to hear and communicate. Review of Systems Review of Systems: All systems reviewed & are unremarkable except as noted in HPI and below PMFSH Past Medical History Medical History Coronary artery disease Obstructive sleep apnea on CPAP Cancer of left breast Coronary artery disease On home O2 at night Seronegative rheumatoid arthritis of both hands Tardive dyskinesia Lumbar degenerative disc disease Degenerative cervical disc Menieres disease Adenomatous colon polyp Gastroparesis Gastritis Parkinson disease Constipation Inflammatory arthritis Bipolar disorder, unspecified Chronic kidney disease, stage 3 (moderate) Chronic obstructive pulmonary disease, unspecified Essential (primary) hypertension Surgical History Surgical History History of bowel resection 10/17/23 Laparoscopic small bowel resection with anastomosis. Laparoscopic adhesiolysis with release of small bowel obstruction History of coronary artery stent placement stent placed 07/2023 History of breast surgery History of hernia surgery History of hysterectomy History of cholecystectomy History of liver biopsy Status post mastectomy Family History Family History Sibling Family history of malignant neoplasm Family history of diabetes mellitus in first degree relative Family history of lupus erythematosus Family history of malignant neoplasm of brain Family history of malignant neoplasm of breast Mother Family history of chronic obstructive pulmonary disease, Onset Age: 76 Patient's mother is Family history of emphysema Family history of malignant neoplasm of breast Father Family history of malignant neoplasm of esophagus, Onset Age: 54 Patient's father is Other Family history of cardiovascular disease Family history of malignant neoplasm of male breast Family history of obesity Social History Social History Social History: Surrogate medical decision maker: Saman Wall, friend. Code status: Full code. Smoking packs per day: 0.5 Smoking cigarettes per day: 10.0 Years smoked: 50 Smoking pack-years: 25.00 Smoking status: Former smoker Second hand tobacco smoke exposure: Yes Alcohol intake: former Substance use: current Substance use type: marijuana Other substance usage details: DAILY Last use: 12/13/2024 Do You Feel Safe in your Home?: Yes Lack of Transportation: No Lack of Food: Never True Current Housing: I Have Housing Concerned About Future Housing: No Difficulty Paying Gas/Electric Bills: No Difficulty Paying for Meds: No Currently Unemployed: No Education: High School Diploma/GED Difficulty w/ Childcare or Family Care: No Living arrangements: with family Spiritual care concerns: No Meds Home Medications and Allergies Home Medications ?Medication ?Instructions ?Recorded ?Confirmed ?Type aspirin 81 mg tablet,delayed 81 mg PO DAILY 05/02/21 12/13/24 History release cholecalciferol (vitamin D3) 25 25 mcg PO DAILY #90 caps 12/05/21 12/13/24 Rx mcg (1,000 unit) capsule sertraline 100 mg tablet 150 mg PO DAILY 08/28/22 12/13/24 History isosorbide mononitrate 60 mg 120 mg PO DAILY 10/29/22 12/13/24 History tablet,extended release 24 hr albuterol sulfate 90 mcg/actuation 2 puff inhalation Q4H PRN 10/13/23 12/13/24 History aerosol inhaler Shortness Of Breath amantadine HCl 100 mg capsule 100 mg PO QHS 10/13/23 12/13/24 History atorvastatin 80 mg tablet 80 mg PO QHS 10/13/23 12/13/24 History carvedilol 25 mg tablet 25 mg PO Q12H 10/13/23 12/13/24 History topiramate 25 mg tablet 50 mg PO Q12H 10/13/23 12/13/24 History trazodone 100 mg tablet 100 mg PO QHS PRN Sleep 10/13/23 12/13/24 History nitroglycerin 0.4 mg BYMOUTH PRN PRN Angina 11/17/23 12/13/24 History acetaminophen 500 mg tablet 500 mg PO Q6H PRN headache 12/01/23 12/13/24 History (Tylenol Extra Strength) amlodipine 10 mg tablet 10 mg PO DAILY #90 tabs 07/11/24 12/13/24 Rx valsartan 160 mg tablet See Rx Instructions .Route 10/07/24 12/13/24 Rx .COMPLEX #180 tabs albuterol sulfate 2.5 mg/3 mL 2.5 mg (3 mL) continuous 11/28/24 12/13/24 Rx (0.083 %) solution for nebulization nebulization Q6H #90 mL meclizine 25 mg tablet See Rx Instructions .Route 11/30/24 12/13/24 Rx .COMPLEX #60 tabs hydrocodone 10 mg-acetaminophen 1 tablet PO Q6H PRN pain #120 tabs 12/08/24 12/13/24 Rx 325 mg tablet ondansetron 4 mg disintegrating See Rx Instructions .Route 12/12/24 12/13/24 Rx tablet .COMPLEX #60 tabs Vitamin K 100 mcg BYMOUTH DAILY 12/13/24 12/13/24 History naloxegol 12.5 mg tablet (Movantik) 12.5 mg PO DAILY@0630 12/13/24 12/13/24 History ropinirole 0.25 mg tablet 0.25 mg PO .daily hs 12/13/24 12/13/24 History sodium bicarbonate 650 mg tablet 650 mg PO BID 12/13/24 12/13/24 History umeclidinium 62.5 mcg-vilanterol 1 inh inhalation Q24H 12/13/24 12/13/24 History 25 mcg/actuation powdr for inhalation (Anoro Ellipta) valbenazine 80 mg capsule 80 mg PO DAILY 12/13/24 12/13/24 History (Ingrezza) Allergies Allergy/AdvReac Type Severity Reaction Status Date / Time adhesive tape Allergy Mild rash Verified 12/13/24 17:05 tetanus immune globulin Allergy Mild HIVES Verified 12/13/24 17:05 cyclobenzaprine Allergy Unknown TINGLING Verified 12/13/24 17:05 SENSATION IN EXTREMITIES fluoxetine Allergy Unknown Rash,Swelli Verified 12/13/24 17:05 ng tetanus and diphtheria Allergy Unknown Swelling Verified 12/13/24 17:05 toxoids Tetanus Vaccines and Toxoid Allergy Unknown rash Verified 12/13/24 17:05 bupropion (From Wellbutrin) Allergy dizzy Verified 12/13/24 17:05 Vital Signs Vital Signs - 24 hr 12/13/24 16:43 12/13/24 17:02 12/13/24 18:00 Temperature 36.9 C 36.4 C Pulse Rate 52 L 51 L Respiratory Rate 16 12 Blood Pressure 174/76 H 185/86 H 172/92 H Pulse Oximetry 97 99 Oxygen Delivery Room Air 12/13/24 18:12 12/13/24 18:13 12/13/24 18:14 Temperature Pulse Rate 47 L 48 L 49 L Respiratory Rate 12 Blood Pressure 169/81 H 161/81 H 166/82 H Pulse Oximetry 96 Oxygen Delivery 12/13/24 18:15 12/13/24 18:16 12/13/24 18:16 Temperature Pulse Rate 48 L 48 L 49 L Respiratory Rate 15 13 Blood Pressure 166/82 H 158/86 H 158/86 H Pulse Oximetry 95 95 Oxygen Delivery 12/13/24 18:24 12/13/24 18:26 12/13/24 18:30 Temperature Pulse Rate 49 L 50 L 47 L Respiratory Rate 14 15 19 Blood Pressure 188/83 H 188/83 H 198/84 H Pulse Oximetry 97 96 96 Oxygen Delivery 12/13/24 19:00 12/13/24 19:30 12/13/24 20:00 Temperature Pulse Rate 46 L 48 L 55 L Respiratory Rate 15 14 19 Blood Pressure 178/84 H 184/86 H 214/100 H Pulse Oximetry 95 96 97 Oxygen Delivery 12/13/24 20:10 12/13/24 20:16 12/13/24 20:18 Temperature Pulse Rate 57 L 52 L 52 L Respiratory Rate 15 12 11 L Blood Pressure 203/79 H 191/84 H 189/81 H Pulse Oximetry 99 98 96 Oxygen Delivery 12/13/24 20:20 12/13/24 20:30 12/13/24 20:40 Temperature Pulse Rate 52 L 51 L 52 L Respiratory Rate 12 16 13 Blood Pressure 196/77 H 186/80 H 186/82 H Pulse Oximetry 96 95 94 Oxygen Delivery 12/13/24 20:50 12/13/24 21:00 12/13/24 21:10 Temperature Pulse Rate 51 L 52 L 53 L Respiratory Rate 16 15 21 H Blood Pressure 179/79 H 189/79 H 194/89 H Pulse Oximetry 92 93 96 Oxygen Delivery 12/13/24 21:17 12/13/24 21:46 12/13/24 22:00 Temperature 36.8 C Pulse Rate 54 L 52 L 51 L Respiratory Rate 14 18 Blood Pressure 192/80 H 186/77 H Pulse Oximetry 97 92 Oxygen Delivery 12/14/24 00:00 12/14/24 00:00 Temperature 36.6 C Pulse Rate 56 L 56 L Respiratory Rate 16 Blood Pressure 155/59 H Pulse Oximetry 94 Oxygen Delivery Exam Narrative: GENERAL: Well-appearing, well-nourished, and in no acute distress. HEAD: Normocephalic. Linear laceration on the inner upper lip that appears to be healing EYES: PERRLA and EOMI. ENT: Mucous membranes moist NECK: Supple. No adenopathy or masses. CHEST: Clear to auscultation. No respiratory distress. No wheezes rales or rhonchi HEART: Regular rate and rhythm. Normal peripheral pulses. ABDOMEN: Soft, nontender, nondistended, normal active bowel sounds. EXTREMITIES: Normal range of motion. No edema or obvious deformity. Mild bruising to the bilateral knees SKIN: Warm, dry, no rash. NEURO: No focal deficits. Alert and oriented x3. CN II-XII grossly intact PSYCH: Normal mood and affect H&P: Results Labs Labs: Short CBC 12/13/24 Range/Units 17:28 WBC 8.6 (4.5-10.0) K/mm3 Hgb 11.2 L (12.0-15.0) g/dL Hct 35.5 L (37.0-47.0) % Plt Count 177 (150-375) k/mm3 BMP 12/13/24 17:28 Sodium 139 Potassium 4.3 Chloride 106 Carbon Dioxide 28 BUN 42 H Creatinine 2.30 H Glucose 94 Calcium 8.5 Cardiac Enzymes 12/13/24 Range/Units 17:28 Troponin I < 0.012 (0.000-0.034) ng/mL Liver Function 12/13/24 Range/Units 17:28 Total Bilirubin 0.3 (0.2-1.3) mg/dL AST 28 (14-36) U/L ALT 13 (6-35) U/L Alkaline Phosphatase 95 (38-126) U/L Albumin 3.3 L (3.5-5.1) g/dL Urine 12/13/24 Range/Units 18:29 Urine Color Yellow (Yellow) Urine Appearance Clear (Clear) Urine pH 6.5 (5.0-9.0) Ur Specific [place] 1.016 (1.001-1.035) Urine Protein 3+ H (Negative) mg/dL Urine Glucose (UA) Negative (Negative) mg/dL Pulse Oximetry SpO2 results: 92-97% on room air Attestation: I personally reviewed and interpreted this pulse oximetry as follows: Interpretation: No need for supplemental oxygenation while awake at this ECG Attestation: I personally reviewed and interpreted this ECG as follows: ECG completion date: 12/13/24 ECG completion time: 17:29 Prior ECG tracings: available for review Interpretation: Sinus bradycardia with first-degree block rate of 50 NH interval 222 QRS duration 108 QTC 404 QRS axis -46 left anterior fascicular block possible LVH, no STEMI, first-degree AV block now present compared to EKG in November of [address] Cervical Spine and Facial Bones: Radiologist's impression: EXAMINATION: CT facial & cervical spine wo DATE: 12/13/2024 17:57 INDICATION: Status post fall. TECHNIQUE: Computed tomography (CT) of the maxillofacial region and cervical spine was performed without intravenous contrast. The dose-length product (DLP) was 404.81 mGy-cm. Automated exposure control and iterative reconstruction technique were employed. COMPARISON: CT dated 10/24/2021 FINDINGS: MAXILLOFACIAL CT: No acute facial fracture. There is a left-sided cochlear implant. Paranasal sinuses and right mastoid air cells are pneumatized. Orbits are symmetric. CERVICAL SPINE CT: Progression of severe spondylosis at C4-5 with fusion at C5-7. There is degenerative anterolisthesis at C3-4 and C4-5. These findings have progressed since prior CT. There is multilevel uncinate and facet hypertrophy. Odontoid process is normal. There is emphysematous change of the lung apices. No acute fracture or traumatic malalignment. IMPRESSION: 1. No acute abnormality of the facial bones or cervical spine. 2: Progression of severe cervical spondylosis with fusion at C5-7. Reviewed, dictated and finalized at location O. CT scan - head: Radiologist's impression: EXAMINATION: CT brain wo con DATE: 12/13/2024 17:57 INDICATION: Status post fall. TECHNIQUE: Computed tomography (CT) of the head was performed without intravenous contrast. The dose-length product was 605.33 mGy-cm. Automated exposure control and iterative reconstruction technique were employed. COMPARISON: CT dated 02/20/2023 FINDINGS: Study degraded by streak artifact secondary to cochlear implant. Normal brain parenchymal volume. No acute infarction, hemorrhage, mass or mass effect. No ventriculomegaly or midline shift. Basilar cisterns are patent. Paranasal sinuses are unremarkable. No depressed skull fracture. IMPRESSION: 1. No acute intracranial abnormality. Reviewed, dictated and finalized at location O. Chest x-ray: Radiologist's impression: XR chest 2V 12/13/2024 17:42 Indication: Weakness. Fall. Procedure: 2 view chest Comparison: 02/19/2024 Findings: Heart size normal. Calcified granuloma left mid thorax. No focal air space disease, pulmonary edema, pleural effusion or suspected pneumothorax. Impression: 1: No acute cardiopulmonary disease. Reviewed, dictated and finalized at location O. XR Left Knee: Radiologist's impression: XR knee LT 3V 12/13/2024 17:43 INDICATION: Left knee pain after fall PROCEDURE: 3 views left knee COMPARISON: 07/29/2011 FINDINGS: Fracture, dislocation or subluxation is not identified. The soft tissues appear within normal limits. No foreign bodies are identified. IMPRESSION: 1: NO ACUTE BONE OR JOINT ABNORMALITY IDENTIFIED. Reviewed, dictated and finalized at location O. XR Right Knee: Radiologist's impression: XR knee RT 3V 12/13/2024 17:42 Indication: Status post fall. Right knee pain Procedure: 3 views right knee Comparison: 02/20/2021 Findings: There is anatomic alignment. There is mild osteoarthritis of the medial compartment. No fracture, subluxation or dislocation. No joint effusion. Impression: 1: No acute bone or joint abnormality. Reviewed, dictated and finalized at location O. Assessment and Plan Assessment and plan (1) Syncope: Qualifiers: Syncope type: unspecified Qualified Code(s): R55 - Syncope and collapse Code(s): R55 - Syncope and collapse Status: Acute Assessment and Plan: -Syncope with fall to knees and striking head 2 days ago and another syncope episode on day of admission -Echocardiogram ordered -Patient bradycardic and hypertensive but no intracranial bleeding or edema noted on CT scan -Admit to IMU and monitor for dysrhythmias (2) Acute kidney injury superimposed on stage 3b chronic kidney disease: Code(s): N17.9 - Acute kidney failure, unspecified; N18.32 - Chronic kidney disease, stage 3b Status: Acute Assessment and Plan: -Cr 2.30 and eGFR 21 on admission -One year ago eGFR in 40s -Recheck labs in AM after IV fluids -Avoid nephrotoxins as much as possible but continue Diovan due to severe hypertension (3) Hypertensive urgency: Code(s): I16.0 - Hypertensive urgency Status: Acute Assessment and Plan: -Responded to 2 doses of IV hydralazine -Patient on high doses of multiple blood pressure medications but question compliance with them (4) Bradycardia: Code(s): R00.1 - Bradycardia, unspecified Status: Acute Assessment and Plan: -Hold Coreg tonight, consider lower dose if indicated for subsequent use or on discharge (5) Antiplatelet or antithrombotic long-term use: Code(s): Z79.02 - long-term (current) use of antithrombotics/antiplatelets Status: Chronic Assessment and Plan: -Noted history (6) BERTA (obstructive sleep apnea): Code(s): G47.33 - Obstructive sleep apnea (adult) (pediatric) Status: Chronic Assessment and Plan: -Noted history -Not wearing CPAP due to upper lip injury and the pressure it places on her face. (7) Chronic obstructive pulmonary disease, unspecified: Qualifiers: COPD type: unspecified COPD Qualified Code(s): J44.9 - Chronic obstructive pulmonary disease, unspecified Code(s): J44.9 - Chronic obstructive pulmonary disease, unspecified Status: Chronic Assessment and Plan: -Noted history (8) Seronegative rheumatoid arthritis of both hands: Code(s): M06.041 - Rheumatoid arthritis without rheumatoid factor, right hand; M06.042 - Rheumatoid arthritis without rheumatoid factor, left hand Status: Chronic Assessment and Plan: -Noted history (9) CAD (coronary artery disease): Code(s): I25.10 - Atherosclerotic heart disease of hoh coronary artery without angina pectoris Status: Chronic Assessment and Plan: -Noted history (10) long-term (current) use of opiate analgesic: Code(s): Z79.891 - superintendent [employer] (current) use of opiate analgesic Status: Chronic Assessment and Plan: -Noted history (11) Bipolar disorder, unspecified: Code(s): F31.9 - Bipolar disorder, unspecified Status: Chronic Assessment and Plan: -Noted history (12) Hyperlipidemia, unspecified: Onset Date: 10/04/18 Qualifiers: Hyperlipidemia type: other hyperlipidemia Qualified Code(s): E78.49 - Other hyperlipidemia Code(s): E78.5 - Hyperlipidemia, unspecified Status: Chronic Assessment and Plan: -Noted history (13) Menieres disease: Code(s): H81.09 - Meniere's disease, unspecified ear Status: Chronic Assessment and Plan: -Noted history (14) Former smoker: Code(s): Z87.891 - Personal history of nicotine dependence Status: Chronic Assessment and Plan: -Noted history -History of COPD as well, not in current acute exacerbation but her rescue inhaler is at bedside. Quality VTE Prophylaxis VTE prophylaxis: pharmacologic ordered (Heparin SQ Q12HR due to renal dysfunction) Hospitalist MIPS Advance Care Plan I have confirmed that the patient's Advanced Care Plan is present, code status is documented, or surrogate decision maker is listed in patient medical record.: Yes Medication Reconciliation I have utilized all available resources to obtain, update and review the patients current medications (includes all prescriptions, OTC, herbals, cannabis, and nutritional supplements).: Yes
[2024-12-14] MEDS: TOPIRAMATE 25 MG TABLET 50 MG PO ×3 (00:41→20:39)
[2024-12-14] MEDS: AMANTADINE HCL 100 MG CAPSULE PO ×2 (01:57→20:40)
[2024-12-14 04:38] LABS: Hematocrit 34.1 % (37.0-47.0); Hemoglobin 10.7 g/dL (12.0-15.0); Immature Granulocyte Percent A 0.3 % (0-0.5); Lymphocytes Absolute Auto 1.87 K/mm3 (0.9-3.2); Mean Corpuscular HGB Conc 31.4 g/dl (32-36); Mean Corpuscular Hemoglobin 30.0 pg (26-34); Mean Corpuscular Volume 95.5 fl (80-100); Nucleated Red Blood Cells Absolute Auto 0.000 K/mm3 (0.0-0.012); Nucleated Red Blood Cells Perc 0.0 % (0.0-0.2); Platelet Count Result 163 k/mm3 (150-375); Red Blood Count 3.57 M/mm3 (4.2-5.4); White Blood Count 7.8 K/mm3 (4.5-10.0)
[2024-12-14] MEDS: HYDROcodone/acetaminophen (*CRX) 10-325 MG TABLET 1 TAB PO ×3 (04:40→16:51)
[2024-12-14 05:19] LABS: Albumin Level 3.0 g/dL (3.5-5.1); Anion Gap 7 mmol/L (4-12); Blood Urea Nitrogen 35 mg/dL (7-17); Calcium 8.0 mg/dL (8.4-10.2); Carbon Dioxide 24 mmol/L (22-30); Chloride 109 mmol/L (98-107); Estimated CRCL calculation 22 ml/min; Estimated Glomerular Filt Rate 24; Glucose 91 mg/dL (65-110); Magnesium 2.0 mg/dL (1.6-2.3); Potassium 3.5 mmol/L (3.4-5.0); Sodium 140 mmol/L (137-145)
[2024-12-14] MEDS: ALBUTEROL SULFATE NEB 2.5 MG/3 ML INH INHALATION ×3 (07:28→20:11)
[2024-12-14] MEDS: UMECLIDINIUM/VILANTEROL 62.5-25 MCG ELLIPTA 1 PUFF INHALATION (07:29)
[2024-12-14] MEDS: SERTRALINE HCL 50 MG TABLET 150 MG PO (08:00)
[2024-12-14] MEDS: SODIUM BICARBONATE TAB 650 MG TABLET PO ×2 (08:00→16:51)
[2024-12-14] MEDS: VALSARTAN 160 MG TABLET 320 MG BY MOUTH (08:01)
[2024-12-14] MEDS: CHOLECALCIFEROL (VITAMIN D3) 25 MCG (1,000 UNITS) TABLET PO (08:02)
[2024-12-14] MEDS: ASPIRIN 81 MG ENTERIC TABLET PO (08:02)
[2024-12-14] MEDS: ISOSORBIDE MONONITRATE 60 MG TAB.ER.24H 120 MG PO (08:02)
[2024-12-14] MEDS: PANTOPRAZOLE SODIUM IV 40 MG VIAL IV PUSH (09:52)
[2024-12-14] MEDS: SODIUM CHLORIDE 0.9% IV 1,000 ML 75 ML IV CONT (13:15)
--- NOTE | 2024-12-14 14:17 | PM.CNCAR ---
Assessment and Plan Assessment and plan (1) Bradycardia: Code(s): R00.1 - Bradycardia, unspecified Status: Acute Plan This is a 69-year-old lady who had a syncopal event at home as described above. The symptoms that she describes are very suspicious for vertigo probably related to her Meniere's disease. We have been consulted because of bradycardia. She is in sinus bradycardia with heart rates generally in the 50s. This of course is not slow enough to explain a syncopal event. Thus far telemetry no more concerning arrhythmias have been found. Certainly sinus bradycardia of course is expected in a patient taking carvedilol 25 mg q.12 hours. We will follow her telemetry with you while she is in the hospital. She would probably benefit from an outpatient 48 hour Holter monitor. 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 Maury Peña MD [facility] History of Present Illness History of Present Illness Consult date/time: 12/14/24 14:17 Reason For Visit: Syncope, MIREYA Narrative: This is a 69-year-old lady I am seeing at the request of the hospitalist because of a syncopal event that prompted her admission to this hospital and because since admission here she is on telemetry and it is noted that she is in sinus bradycardia with heart rates primarily in the 50s. She is known to have heart disease and follows longitudinally with the Cardiology Department at [facility]. She says she is known to have coronary artery disease and was referred there about 3-5 years ago from her primary here at [facility], Dr. Min. She has undergone percutaneous revascularization at that hospital and just recently earlier this year a follow-up catheterization was done demonstrating some moderate coronary disease. Medical therapy for this was continued. She states that while she was at home in her kitchen cooking some potatoes she suddenly noticed the onset of feeling unwell with lightheadedness the 6 sense of spinning of the room or vertigo was part of this symptom and after short time she lost consciousness and fell to the floor. Her helped her get up and she felt weak but otherwise not in any distress. She discussed with her bringing her to the emergency room with that time she was resistant to that idea. She decided last night because she was still having episodes of lightheadedness to come to the hospital. She has not had any recurrent syncopal episodes since the episode described above which was on Thursday afternoon. She does have significant hypertension, history of Meniere's disease and a history of chronic kidney disease. Since being admitted to the hospital her telemetry to has not shown any AV node dysfunction or significant pauses. She does take carvedilol at a dosage of 25 mg q.12 hours. She is hypertensive with systolic pressures in the 170-180 range. Review of Systems Constitutional: Constitutional: Reports no additional constitutional complaints Eyes: Eyes: Reports no additional eye complaints ENT: Reports system reviewed and no additional complaints, except as documented Cardiovascular: Cardiovascular: Reports as per HPI Respiratory: Respiratory: Reports no additional respiratory complaints Musculoskeletal: Musculoskeletal: Reports back pain Integumentary/Breasts: Skin/Breast: Reports system reviewed and no additional complaints, except as docu Neurologic: Reports as per HPI and Reports vertigo Hematologic/Lymphatic: Hematologic/Lymphatic: Reports no additional hematologic/lymphatic complaints Allergic/Immunologic: Allergic/Immunologic: Reports no additional allergic/immunologic complaints [facility] Past Medical History Medical History Coronary artery disease Obstructive sleep apnea on CPAP Cancer of left breast Coronary artery disease On home O2 at night Seronegative rheumatoid arthritis of both hands Tardive dyskinesia Lumbar degenerative disc disease Degenerative cervical disc Menieres disease Adenomatous colon polyp Gastroparesis Gastritis Parkinson disease Constipation Inflammatory arthritis Bipolar disorder, unspecified Chronic kidney disease, stage 3 (moderate) Chronic obstructive pulmonary disease, unspecified Essential (primary) hypertension Surgical History Surgical History History of bowel resection 10/17/23 Laparoscopic small bowel resection with anastomosis. Laparoscopic adhesiolysis with release of small bowel obstruction History of coronary artery stent placement stent placed 07/2023 History of breast surgery History of hernia surgery History of hysterectomy History of cholecystectomy History of liver biopsy Status post mastectomy Family History Family History Sibling Family history of malignant neoplasm Family history of diabetes mellitus in first degree relative Family history of lupus erythematosus Family history of malignant neoplasm of brain Family history of malignant neoplasm of breast Mother Family history of chronic obstructive pulmonary disease, Onset Age: 76 Patient's mother is Family history of emphysema Family history of malignant neoplasm of breast Father Family history of malignant neoplasm of esophagus, Onset Age: 54 Patient's father is Other Family history of cardiovascular disease Family history of malignant neoplasm of male breast Family history of obesity Social History Social History Social History: Surrogate medical decision maker: Saman Mendezd, friend. Code status: Full code. Smoking packs per day: 0.5 Smoking cigarettes per day: 10.0 Years smoked: 50 Smoking pack-years: 25.00 Smoking status: Former smoker Second hand tobacco smoke exposure: Yes Alcohol intake: former Substance use: current Substance use type: marijuana Other substance usage details: DAILY Last use: 12/13/2024 Do You Feel Safe in your Home?: Yes Lack of Transportation: No Lack of Food: Never True Current Housing: I Have Housing Concerned About Future Housing: No Difficulty Paying Gas/Electric Bills: No Difficulty Paying for Meds: No Currently Unemployed: No Education: High School Diploma/GED Difficulty w/ Childcare or Family Care: No Living arrangements: with family Spiritual care concerns: No Meds Home Medications and Allergies Home Medications ?Medication ?Instructions ?Recorded ?Confirmed ?Type aspirin 81 mg tablet,delayed 81 mg PO DAILY 05/02/21 12/13/24 History release cholecalciferol (vitamin D3) 25 25 mcg PO DAILY #90 caps 12/05/21 12/13/24 Rx mcg (1,000 unit) capsule sertraline 100 mg tablet 150 mg PO DAILY 08/28/22 12/13/24 History isosorbide mononitrate 60 mg 120 mg PO DAILY 10/29/22 12/13/24 History tablet,extended release 24 hr albuterol sulfate 90 mcg/actuation 2 puff inhalation Q4H PRN 10/13/23 12/13/24 History aerosol inhaler Shortness Of Breath amantadine HCl 100 mg capsule 100 mg PO QHS 10/13/23 12/13/24 History atorvastatin 80 mg tablet 80 mg PO QHS 10/13/23 12/13/24 History carvedilol 25 mg tablet 25 mg PO Q12H 10/13/23 12/13/24 History topiramate 25 mg tablet 50 mg PO Q12H 10/13/23 12/13/24 History trazodone 100 mg tablet 100 mg PO QHS PRN Sleep 10/13/23 12/13/24 History nitroglycerin 0.4 mg BYMOUTH PRN PRN Angina 11/17/23 12/13/24 History acetaminophen 500 mg tablet 500 mg PO Q6H PRN headache 12/01/23 12/13/24 History (Tylenol Extra Strength) amlodipine 10 mg tablet 10 mg PO DAILY #90 tabs 07/11/24 12/13/24 Rx valsartan 160 mg tablet See Rx Instructions .Route 10/07/24 12/13/24 Rx .COMPLEX #180 tabs albuterol sulfate 2.5 mg/3 mL 2.5 mg (3 mL) continuous 11/28/24 12/13/24 Rx (0.083 %) solution for nebulization nebulization Q6H #90 mL meclizine 25 mg tablet See Rx Instructions .Route 11/30/24 12/13/24 Rx .COMPLEX #60 tabs hydrocodone 10 mg-acetaminophen 1 tablet PO Q6H PRN pain #120 tabs 12/08/24 12/13/24 Rx 325 mg tablet ondansetron 4 mg disintegrating See Rx Instructions .Route 12/12/24 12/13/24 Rx tablet .COMPLEX #60 tabs Vitamin K 100 mcg BYMOUTH DAILY 12/13/24 12/13/24 History naloxegol 12.5 mg tablet (Movantik) 12.5 mg PO DAILY@0630 12/13/24 12/13/24 History ropinirole 0.25 mg tablet 0.25 mg PO .daily hs 12/13/24 12/13/24 History sodium bicarbonate 650 mg tablet 650 mg PO BID 12/13/24 12/13/24 History umeclidinium 62.5 mcg-vilanterol 1 inh inhalation Q24H 12/13/24 12/13/24 History 25 mcg/actuation powdr for inhalation (Anoro Ellipta) valbenazine 80 mg capsule 80 mg PO DAILY 12/13/24 12/13/24 History (Ingrezza) Allergies Allergy/AdvReac Type Severity Reaction Status Date / Time adhesive tape Allergy Mild rash Verified 12/13/24 17:05 tetanus immune globulin Allergy Mild HIVES Verified 12/13/24 17:05 cyclobenzaprine Allergy Unknown TINGLING Verified 12/13/24 17:05 SENSATION IN EXTREMITIES fluoxetine Allergy Unknown Rash,Swelli Verified 12/13/24 17:05 ng tetanus and diphtheria Allergy Unknown Swelling Verified 12/13/24 17:05 toxoids Tetanus Vaccines and Toxoid Allergy Unknown rash Verified 12/13/24 17:05 bupropion (From Wellbutrin) Allergy dizzy Verified 12/13/24 17:05 Vital Signs Vital Signs - 24 hr 12/13/24 16:43 12/13/24 17:02 12/13/24 18:00 Temperature 36.9 C 36.4 C Pulse Rate 52 L 51 L Respiratory Rate 16 12 Blood Pressure 174/76 H 185/86 H 172/92 H Pulse Oximetry 97 99 Oxygen Delivery Room Air 12/13/24 18:12 12/13/24 18:13 12/13/24 18:14 Temperature Pulse Rate 47 L 48 L 49 L Respiratory Rate 12 Blood Pressure 169/81 H 161/81 H 166/82 H Pulse Oximetry 96 Oxygen Delivery 12/13/24 18:15 12/13/24 18:16 12/13/24 18:16 Temperature Pulse Rate 48 L 48 L 49 L Respiratory Rate 15 13 Blood Pressure 166/82 H 158/86 H 158/86 H Pulse Oximetry 95 95 Oxygen Delivery 12/13/24 18:24 12/13/24 18:26 12/13/24 18:30 Temperature Pulse Rate 49 L 50 L 47 L Respiratory Rate 14 15 19 Blood Pressure 188/83 H 188/83 H 198/84 H Pulse Oximetry 97 96 96 Oxygen Delivery 12/13/24 19:00 12/13/24 19:30 12/13/24 20:00 Temperature Pulse Rate 46 L 48 L 55 L Respiratory Rate 15 14 19 Blood Pressure 178/84 H 184/86 H 214/100 H Pulse Oximetry 95 96 97 Oxygen Delivery 12/13/24 20:10 12/13/24 20:16 12/13/24 20:18 Temperature Pulse Rate 57 L 52 L 52 L Respiratory Rate 15 12 11 L Blood Pressure 203/79 H 191/84 H 189/81 H Pulse Oximetry 99 98 96 Oxygen Delivery 12/13/24 20:20 12/13/24 20:30 12/13/24 20:40 Temperature Pulse Rate 52 L 51 L 52 L Respiratory Rate 12 16 13 Blood Pressure 196/77 H 186/80 H 186/82 H Pulse Oximetry 96 95 94 Oxygen Delivery 12/13/24 20:50 12/13/24 21:00 12/13/24 21:10 Temperature Pulse Rate 51 L 52 L 53 L Respiratory Rate 16 15 21 H Blood Pressure 179/79 H 189/79 H 194/89 H Pulse Oximetry 92 93 96 Oxygen Delivery 12/13/24 21:17 12/13/24 21:46 12/13/24 22:00 Temperature 36.8 C Pulse Rate 54 L 52 L 51 L Respiratory Rate 14 18 Blood Pressure 192/80 H 186/77 H Pulse Oximetry 97 92 Oxygen Delivery 12/14/24 00:00 12/14/24 00:00 12/14/24 02:00 Temperature 36.6 C Pulse Rate 56 L 56 L 55 L Respiratory Rate 16 Blood Pressure 155/59 H Pulse Oximetry 94 Oxygen Delivery 12/14/24 04:00 12/14/24 04:00 12/14/24 06:00 Temperature 36.5 C Pulse Rate 61 53 L 53 L Respiratory Rate 16 Blood Pressure 192/64 H Pulse Oximetry 99 Oxygen Delivery 12/14/24 07:32 12/14/24 07:32 12/14/24 07:37 Temperature Pulse Rate 54 L 54 L 57 L Respiratory Rate 20 20 20 Blood Pressure Pulse Oximetry 95 Oxygen Delivery Room Air 12/14/24 07:56 12/14/24 08:10 12/14/24 08:15 Temperature 36.4 C Pulse Rate 56 L 53 L 53 L Respiratory Rate 18 Blood Pressure 187/84 H 177/69 H Pulse Oximetry 98 Oxygen Delivery 12/14/24 12:00 Temperature 36.6 C Pulse Rate 57 L Respiratory Rate 16 Blood Pressure 174/78 H Pulse Oximetry 92 Oxygen Delivery Exam Const: General: comfortable and no acute distress Other: Pleasant white female appearing older than her stated age otherwise in no distress at this time. HENMT: Mouth: Yes moist mucous membranes Eyes: Sclera: sclerae normal Neck: Neck: supple and no JVD Other: Carotid upstrokes are normal bilaterally Resp: Effort & Inspection: normal respiratory effort Other: Breath sounds are clear but diminished in both lung bustamante Cardio: Rate: regular rate Rhythm: regular rhythm GI: GI Palp: Yes Soft to palpation Auscultation: normal bowel sounds Skin: General skin exam: normal color Neuro: Other: Alert and oriented x3 Results Labs and Meds 12/14/24 04:03 12/14/24 04:03 Lab results: Cardiac Enzymes 12/13/24 Range/Units 17:28 AST 28 (14-36) U/L Troponin I < 0.012 (0.000-0.034) ng/mL CBC 12/13/24 12/14/24 Range/Units 17:28 04:03 WBC 8.6 7.8 (4.5-10.0) K/mm3 RBC 3.73 L 3.57 L (4.2-5.4) M/mm3 Hgb 11.2 L 10.7 L (12.0-15.0) g/dL Hct 35.5 L 34.1 L (37.0-47.0) % Plt Count 177 163 (150-375) k/mm3 Lymph # (Auto) 1.88 1.87 (0.9-3.2) K/mm3 [place] # (Auto) 0.7 H 0.7 H (0.1-0.6) K/mm3 Eos # (Auto) 0.2 0.2 (0-0.3) K/mm3 Baso # (Auto) 0.0 0.0 (0.0-0.1) K/mm3 Comprehensive Metabolic Panel 12/13/24 12/14/24 Range/Units 17:28 04:03 Sodium 139 140 (137-145) mmol/L Potassium 4.3 3.5 (3.4-5.0) mmol/L Chloride 106 109 H (98-107) mmol/L Carbon Dioxide 28 24 (22-30) mmol/L BUN 42 H 35 H (7-17) mg/dL Creatinine 2.30 H 2.05 H (0.7-1.0) mg/dL Glucose 94 91 (65-110) mg/dL Calcium 8.5 8.0 L (8.4-10.2) mg/dL AST 28 (14-36) U/L ALT 13 (6-35) U/L Alkaline Phosphatase 95 (38-126) U/L Total Protein 6.7 (6.3-8.2) g/dL Albumin 3.3 L 3.0 L (3.5-5.1) g/dL Intake and Output 12/13/24 12/14/24 12/14/24 23:59 07:59 15:59 Intake Total 2863 933 6814 Output Total 600 300 Balance 1000 -300 1060 Intake: IV 1000 1000 Sodium Chloride 0.9% IV 1,000 1000 1000 ml @ 75 mls/hr IV CONT .[id number] [facility] Rx#:[id number] Oral 300 360 Output: Urine 600 300 Patient Weight 12/14/24 23:59 Weight 76.5 kg
--- NOTE | 2024-12-14 16:26 | PC.NURSE ---
On 12/14/24, the student, Eleni, provided care and [facility] I have reviewed the student's documentation and agree with the findings.
--- NOTE | 2024-12-14 20:36 | PHAR ---
HOME MED VERIFIE Valbenazine [Ingrezza] 80 mg capsule 1 DAILY
[2024-12-14] MEDS: MECLIZINE HCL 25 MG TABLET BY MOUTH (20:39)
[2024-12-14] MEDS: ATORVASTATIN 40 MG TABLET 80 MG PO (20:40)
[2024-12-14] MEDS: VALBENAZINE 80 MG 80 EACH PO (22:07)
--- NOTE | 2024-12-14 22:24 | PCRCNOTE ---
Patient refused apnea link stating she has already had a sleep study and wears a cpap at home.
[2024-12-15] VITALS (15 sets, daily range): BP systolic 149–186; BP diastolic 63–73; PULSE 52–70; RESP 16–18; TEMP 36.5–36.9; O2SAT 94–100
[2024-12-15] MEDS: SODIUM CHLORIDE 0.9% IV 1,000 ML 75 ML IV CONT ×2 (02:35→17:24)
[2024-12-15 04:06] LABS: Hematocrit 35.4 % (37.0-47.0); Hemoglobin 10.8 g/dL (12.0-15.0); Immature Granulocyte Percent A 0.6 % (0-0.5); Lymphocytes Absolute Auto 1.92 K/mm3 (0.9-3.2); Mean Corpuscular HGB Conc 30.5 g/dl (32-36); Mean Corpuscular Hemoglobin 29.8 pg (26-34); Mean Corpuscular Volume 97.5 fl (80-100); Nucleated Red Blood Cells Absolute Auto 0.000 K/mm3 (0.0-0.012); Nucleated Red Blood Cells Perc 0.0 % (0.0-0.2); Platelet Count Result 172 k/mm3 (150-375); Red Blood Count 3.63 M/mm3 (4.2-5.4); White Blood Count 8.7 K/mm3 (4.5-10.0)
[2024-12-15 04:24] LABS: Albumin Level 3.2 g/dL (3.5-5.1); Anion Gap 6 mmol/L (4-12); Blood Urea Nitrogen 28 mg/dL (7-17); Calcium 7.8 mg/dL (8.4-10.2); Carbon Dioxide 22 mmol/L (22-30); Chloride 112 mmol/L (98-107); Estimated CRCL calculation 21 ml/min; Estimated Glomerular Filt Rate 23; Glucose 99 mg/dL (65-110); Magnesium 2.1 mg/dL (1.6-2.3); Potassium 3.7 mmol/L (3.4-5.0); Sodium 140 mmol/L (137-145)
--- NOTE | 2024-12-15 06:39 | PC.NURSE ---
Pt received at 0639 taken to room 348. Verbal report taken from Melba from IMU 205-2
[2024-12-15] MEDS: HYDROcodone/acetaminophen (*CRX) 10-325 MG TABLET 1 TAB PO ×2 (07:45→17:29)
[2024-12-15] MEDS: ALBUTEROL SULFATE NEB 2.5 MG/3 ML INH INHALATION ×2 (07:50→20:32)
[2024-12-15] MEDS: UMECLIDINIUM/VILANTEROL 62.5-25 MCG ELLIPTA 1 PUFF INHALATION (07:50)
[2024-12-15] MEDS: SERTRALINE HCL 50 MG TABLET 150 MG PO (09:04)
[2024-12-15] MEDS: ASPIRIN 81 MG ENTERIC TABLET PO (09:04)
[2024-12-15] MEDS: PANTOPRAZOLE SODIUM IV 40 MG VIAL IV PUSH (09:04)
[2024-12-15] MEDS: SODIUM BICARBONATE TAB 650 MG TABLET PO ×2 (09:04→17:24)
[2024-12-15] MEDS: CHOLECALCIFEROL (VITAMIN D3) 25 MCG (1,000 UNITS) TABLET PO (09:05)
[2024-12-15] MEDS: ISOSORBIDE MONONITRATE 60 MG TAB.ER.24H 120 MG PO (09:05)
[2024-12-15] MEDS: TOPIRAMATE 25 MG TABLET 50 MG PO ×2 (09:05→20:49)
[2024-12-15] MEDS: VALSARTAN 160 MG TABLET 320 MG BY MOUTH (10:04)
--- NOTE | 2024-12-15 13:35 | P.CONNP_ITS ---
Assessment and Plan Assessment and plan (1) Acute kidney injury: Code(s): N17.9 - Acute kidney failure, unspecified Status: Acute Assessment and Plan: * as noted by admission labs (creatinine of 2.3mg/dL) * fluctuating since admission * due to bradycardia versus transient hypotension (leading to syncope) versus other (CKD progression)? * check renal ultrasound, urine studies, and CPK * consider holding ARB (but I worry that this will cause her BP to further worsen so will continue for now) * follow trend of repeat labs and UOP (2) Stage 3b chronic kidney disease: Code(s): N18.32 - Chronic kidney disease, stage 3b Status: Chronic Assessment and Plan: * creatinine 1.87mg/dL in July 2024 * running 1.2 - 1.8mg/dL since 2020 * some of these fluctuations are associated with acute hospitalizations * she may have a component of CKD progression... * presumable due to hypertension, vascular disease (CAD + hyperlipidemia + previous smoking), nephrolithiasis, BERTA, and age-related change * follows with Dr. Menendez ([facility] Nephrology) for management of CKD * will try to get records regarding more recent blood work/creatinine... (3) Syncope: Qualifiers: Syncope type: unspecified Qualified Code(s): R55 - Syncope and collapse Code(s): R55 - Syncope and collapse Status: Acute Assessment and Plan: * noted by admission history: * fall to knees with head strike 2 days prior to presentation * another episode on the day of admission * follow telemetry * follow-up on Echo * BP control * fall precautions * PT/OT as tolerated (4) Bradycardia: Code(s): R00.1 - Bradycardia, unspecified Status: Acute Assessment and Plan: * noted on presentation * carvedilol with parameters * Cardiology recommendations noted (5) Hypertension: Code(s): I10 - Essential (primary) hypertension Status: Chronic Assessment and Plan: * elevated on presentation as well (170s - 190s systolic) * resume home medications * PRN IV medications * may need another agent (i.e. oral hydralazine vs changing amlodipine to nifedipine XL) * follow trend of hemodynamics (6) Chronic obstructive pulmonary disease, unspecified: Qualifiers: COPD type: unspecified COPD Qualified Code(s): J44.9 - Chronic obstructive pulmonary disease, unspecified Code(s): J44.9 - Chronic obstructive pulmonary disease, unspecified Status: Chronic Assessment and Plan: * known history * follows with Pulmonary at [facility] * no evidence of exacerbation * continue home inhalers I will continue to follow the patient with you while he remains hospitalized and make further recommendations as deemed necessary. Thank you for allowing me to participate in the care of this patient. L History of Present Illness Reason for Consult Consult date: 12/15/24 Reason for consult: acute renal failure (on chronic kidney disease) Chief Complaint Chief complaint: Syncope, MIREYA History of Present Illness Narrative: The patient is a 69-year-old female with a past medical history as outlined below who presented to [facility] Emergency Room status post fall / syncopal episode. Apparently, the patient had a fall approximately 2 days ago prior to her presentation to the ER. According to the patient, she has been experiencing episodes of dizziness and passing out more frequently in the last several months with reportedly at least 4 times in the last year. On the day of presentation, she once again felt lightheaded and passed out and apparently hit her head with a subsequent fall. This is further complicated by the fact that she does have some issues with chronic dizziness secondary to her many years disease. Following the fall, she reported bilateral knee pain but denies any other associated symptoms with regard to vision changes, nausea, vomiting, chest pain, shortness of breath, focal numbness, or weakness prior to or after the fall. Prior to this recent episode episodes, her previous syncopal episode was approximately few months ago. Given this history and the events that occurred earlier on the day of admission, she presented to the ER for further assessment. Workup and evaluation emergency room demonstrated the patient to be hemodynamically stable (if not a bit hypertensive) and afebrile. She was noted to be relatively bradycardic with her heart rate running in the high 40s to low 50s. Her EKG showed sinus bradycardia without any specific ischemic changes. Imaging studies included a CT scan of the face, cervical spine, and head which did not demonstrate any acute injuries. Her cardiac enzymes and liver function tests were negative and her urinalysis was only significant for 3+ protein. X- rays of her knees did not demonstrate any acute bone or joint abnormalities either. While in the ER, she received IV medications for better blood pressure control and was given IV fluids given her elevated BUN and creatinine in comparison to previous testing done here at [facility]. She was subsequently admitted to the hospital for further evaluation and therapy. Since her admission, the patient's creatinine has been fluctuating with initial improvement down to 2.05 mg/dL but then a slight increase to 2.15 mg/dL by labs done this morning. She appears to be maintain stability in her electrolytes as well as her acid-base and volume status. Renal consultation was requested due to her acute kidney injury/acute renal failure on top of her baseline chronic kidney disease. The patient states that she has known about her chronic kidney disease since as far back as 2019 and currently follows with Dr. Menendez at [facility] Nephrology for management of her chronic kidney disease. She states that on her last office visit in October of this year, she she was told that she had chronic kidney disease stage IIIB but she cannot give me specifics in terms of what her GFR or creatinine was. From review the records here at [facility], it would seem that her creatinine seems to fluctuate anywhere from 1.2-1.8 mg/dL since 2020 although some of these fluctuations in her kidney function are associated with acute hospitalizations. Presumably, her baseline renal insufficiency is secondary to her hypertension, vascular disease, history of nephrolithiasis, possibly obstructive sleep apnea, and age. in spite of her fluctuating renal function, she appears to making fairly good urine output with relative stability in her fluid status. Currently, at the time my evaluation, she appears to be in no acute distress. Review of Systems 2 Review of Systems: As per HPI. [facility] Past Medical History Medical History Coronary artery disease Obstructive sleep apnea on CPAP Cancer of left breast Coronary artery disease On home O2 at night Seronegative rheumatoid arthritis of both hands Tardive dyskinesia Lumbar degenerative disc disease Degenerative cervical disc Menieres disease Adenomatous colon polyp Gastroparesis Gastritis Parkinson disease Constipation Inflammatory arthritis Bipolar disorder, unspecified Chronic kidney disease, stage 3 (moderate) Chronic obstructive pulmonary disease, unspecified Essential (primary) hypertension Surgical History Surgical History History of bowel resection 10/17/23 Laparoscopic small bowel resection with anastomosis. Laparoscopic adhesiolysis with release of small bowel obstruction History of coronary artery stent placement stent placed 07/2023 History of breast surgery History of hernia surgery History of hysterectomy History of cholecystectomy History of liver biopsy Status post mastectomy Family History Family History Sibling Family history of malignant neoplasm Family history of diabetes mellitus in first degree relative Family history of lupus erythematosus Family history of malignant neoplasm of brain Family history of malignant neoplasm of breast Mother Family history of chronic obstructive pulmonary disease, Onset Age: 76 Patient's mother is Family history of emphysema Family history of malignant neoplasm of breast Father Family history of malignant neoplasm of esophagus, Onset Age: 54 Patient's father is Other Family history of cardiovascular disease Family history of malignant neoplasm of male breast Family history of obesity Social History Social History Social History: Surrogate medical decision maker: Saman Wall, friend. Code status: Full code. Smoking packs per day: 0.5 Smoking cigarettes per day: 10.0 Years smoked: 50 Smoking pack-years: 25.00 Smoking status: Former smoker Second hand tobacco smoke exposure: Yes Alcohol intake: former Substance use: current Substance use type: marijuana Other substance usage details: DAILY Last use: 12/13/2024 Do You Feel Safe in your Home?: Yes Lack of Transportation: No Lack of Food: Never True Current Housing: I Have Housing Concerned About Future Housing: No Difficulty Paying Gas/Electric Bills: No Difficulty Paying for Meds: No Currently Unemployed: No Education: High School Diploma/GED Difficulty w/ Childcare or Family Care: No Living arrangements: with family Spiritual care concerns: No Meds Home Medications and Allergies Home Medications ?Medication ?Instructions ?Recorded ?Confirmed ?Type aspirin 81 mg tablet,delayed 81 mg PO DAILY 05/02/21 0 12/13/24 History release cholecalciferol (vitamin D3) 25 25 mcg PO DAILY #90 ca ps 12/05/21 12/13/24 Rx mcg (1,000 unit) capsule sertraline 100 mg tablet 150 mg PO DAILY 08/28/2212/29 History isosorbide mononitrate 60 mg 120 mg PO DAILY 10/29/22 12/13/24 History tablet,extended release 24 hr albuterol sulfate 90 mcg/actuation 2 puff inhalation Q 4H PRN 10/13/23 12/13/24 History aerosol inhaler Shortness Of Breath amantadine HCl 100 mg capsule 100 mg PO QHS 10/13/23 0 12/13/24 History atorvastatin 80 mg tablet 80 mg PO QHS 10/13/23 History carvedilol 25 mg tablet 25 mg PO Q12H 10/13/2312/13 History topiramate 25 mg tablet 50 mg PO Q12H 10/13/2312/13 History trazodone 100 mg tablet 100 mg PO QHS PRN Sleep 12/2812/13/24 History nitroglycerin 0.4 mg BYMOUTH PRN PRN Angin a 11/17/23 12/13/24 History acetaminophen 500 mg tablet 500 mg PO Q6H PRN headache 12/01/23 12/13/24 History (Tylenol Extra Strength) amlodipine 10 mg tablet 10 mg PO DAILY #90 tabs 10/2812/13/24 Rx valsartan 160 mg tablet See Rx Instructions .Route 0 10/07/24 12/13/24 Rx .COMPLEX #180 tabs albuterol sulfate 2.5 mg/3 mL 2.5 mg (3 mL) continuous 11/28/24 12/13/24 Rx (0.083 %) solution for nebulization nebulization Q6H # 90 mL meclizine 25 mg tablet See Rx Instructions .Route 0 11/30/24 12/13/24 Rx .COMPLEX #60 tabs hydrocodone 10 mg-acetaminophen 1 tablet PO Q6H PRN pa in #120 tabs 12/08/24 12/13/24 Rx 325 mg tablet ondansetron 4 mg disintegrating See Rx Instructions .R oute 12/12/24 12/13/24 Rx tablet .COMPLEX #60 tabs Vitamin K 100 mcg BYMOUTH DAILY 12/13/24 History naloxegol 12.5 mg tablet (Movantik) 12.5 mg PO DAILY@0 630 12/13/24 12/13/24 History ropinirole 0.25 mg tablet 0.25 mg PO .daily hs 5 12/13/24 History sodium bicarbonate 650 mg tablet 650 mg PO BID 5 12/13/24 History umeclidinium 62.5 mcg-vilanterol 1 inh inhalation Q24H 12/13/24 12/13/24 History 25 mcg/actuation powdr for inhalation (Anoro Ellipta) valbenazine 80 mg capsule 80 mg PO DAILY 12/13/24 0912/29 History (Ingrezza) Allergies Allergy/AdvReac Type Severity Reaction Status Date / Time adhesive tape Allergy Mild rash Verified 12/13/24 17:05 tetanus immune globulin Allergy Mild HIVES Verified 12/13/24 17:05 cyclobenzaprine Allergy Unknown TINGLING Verified 12/13/24 17:05 SENSATION IN EXTREMITIES fluoxetine Allergy Unknown Rash,Swelli Verified 12/13/24 17:05 ng tetanus and diphtheria Allergy Unknown Swelling Verified 12/13/24 17:05 toxoids Tetanus Vaccines and Toxoid Allergy Unknown rash Verified 12/13/24 17:05 bupropion (From Wellbutrin) Allergy dizzy Verified 12/13/24 17:05 Vital Signs Vital Signs Temp Pulse Resp BP Pulse Ox O2 Del Method 12/15/24 16:00 98.1 F 57 L 18 149/64 H 97 12/15/24 12:39 97.7 F 55 L 18 172/70 H 97 12/15/24 12:06 52 L 12/15/24 10:13 70 12/15/24 09:04 Room Air 12/15/24 08:05 58 L 12/15/24 08:00 97.7 F 55 L 18 186/73 H 94 12/15/24 07:55 96 Room Air 12/15/24 07:55 67 16 12/15/24 07:50 60 16 12/15/24 04:00 58 L 12/15/24 04:00 98.2 F 62 16 158/63 H 100 12/15/24 02:35 CPAP 12/15/24 00:00 55 L 12/15/24 00:00 98.2 F 58 L 16 151/70 H 99 12/14/24 22:43 55 L 94 CPAP 12/14/24 22:40 48 L 12/14/24 20:32 57 L 93 Room Air 12/14/24 20:31 53 L 20 12/14/24 20:12 57 L 20 12/14/24 20:00 56 L 12/14/24 19:56 97.9 F 57 L 15 153/72 H 96 Exam 2 Narrative: GENERAL APPEARANCE: elderly but well developed well nourished female in no acute distress HEENT: normocephalic, atraumatic, normal conjunctiva and sclera, nares patient NECK: no lymphadenopathy, thyromegaly, or JVD MOUTH: normal lips, teeth, and gums CARDIOVASCULAR: RRR, normal S1 and S2, no rub detected RESPIRATORY: coarse breath sounds ABDOMEN: soft, nontender, nondistended, positive bowel sounds present EXTREMITIES: no evidence of cyanosis, clubbing, or edema NEUROLOGICAL: alert and oriented x 3; CN II - XII intact bilaterally; no focal deficits noted Results Lab Results 12/16/24 05:25 12/16/24 05:25 Lab results: Most recent lab results Calcium 7.8 mg/dL (8.4-10.2) L 12/15/24 03:41 Phosphorus 3.9 mg/dL (2.5-4.5) 12/15/24 03:41 Magnesium 2.1 mg/dL (1.6-2.3) 12/15/24 03:41
[2024-12-15 18:27] LABS: Urine Eos QC 2nd Tech Confirmed
[2024-12-15 18:43] LABS: Urea Random Urine 489 MG/DL
[2024-12-15 18:48] LABS: Total Protein Urine Random 453 mg/dL
[2024-12-15 19:15] LABS: Total Protein Urine Random 453 mg/dL; Ur Ttl Prot Creatinine Ratio 4.89 mg/mg (0-0.20)
[2024-12-15] MEDS: AMANTADINE HCL 100 MG CAPSULE PO (20:47)
[2024-12-15] MEDS: ATORVASTATIN 40 MG TABLET 80 MG PO (20:47)
[2024-12-16] VITALS (15 sets, daily range): BP systolic 162–174; BP diastolic 63–74; PULSE 2–61; RESP 14–18; TEMP 36.1–36.5; O2SAT 97–99
[2024-12-16] MEDS: HYDROcodone/acetaminophen (*CRX) 10-325 MG TABLET 1 TAB PO ×3 (05:30→18:04)
[2024-12-16 05:41] LABS: Hematocrit 33.9 % (37.0-47.0); Hemoglobin 10.7 g/dL (12.0-15.0); Immature Granulocyte Percent A 0.5 % (0-0.5); Lymphocytes Absolute Auto 1.81 K/mm3 (0.9-3.2); Mean Corpuscular HGB Conc 31.6 g/dl (32-36); Mean Corpuscular Hemoglobin 30.1 pg (26-34); Mean Corpuscular Volume 95.5 fl (80-100); Nucleated Red Blood Cells Absolute Auto 0.000 K/mm3 (0.0-0.012); Nucleated Red Blood Cells Perc 0.0 % (0.0-0.2); Platelet Count Result 162 k/mm3 (150-375); Red Blood Count 3.55 M/mm3 (4.2-5.4); White Blood Count 7.8 K/mm3 (4.5-10.0)
[2024-12-16 06:04] LABS: Alanine Aminotransferase 11 U/L (6-35); Albumin Level 3.0 g/dL (3.5-5.1); Alkaline Phosphatase 101 U/L (38-126); Anion Gap 6 mmol/L (4-12); Aspartate Amino Transferase 23 U/L (14-36); Bilirubin,Total 0.2 mg/dL (0.2-1.3); Blood Urea Nitrogen 26 mg/dL (7-17); Calcium 7.8 mg/dL (8.4-10.2); Carbon Dioxide 23 mmol/L (22-30); Chloride 112 mmol/L (98-107); Creatine Kinase 46 U/L (30-135); Estimated CRCL calculation 21 ml/min; Estimated Glomerular Filt Rate 22; Glucose 89 mg/dL (65-110); Magnesium 1.9 mg/dL (1.6-2.3); Potassium 3.7 mmol/L (3.4-5.0); Sodium 141 mmol/L (137-145); Total Protein 6.1 g/dL (6.3-8.2)
[2024-12-16] MEDS: ALBUTEROL SULFATE NEB 2.5 MG/3 ML INH INHALATION ×3 (07:45→21:15)
[2024-12-16] MEDS: UMECLIDINIUM/VILANTEROL 62.5-25 MCG ELLIPTA 1 PUFF INHALATION (07:46)
[2024-12-16] MEDS: PANTOPRAZOLE SODIUM IV 40 MG VIAL IV PUSH (08:39)
[2024-12-16] MEDS: CHOLECALCIFEROL (VITAMIN D3) 25 MCG (1,000 UNITS) TABLET PO (08:39)
[2024-12-16] MEDS: TOPIRAMATE 25 MG TABLET 50 MG PO ×2 (08:40→20:50)
[2024-12-16] MEDS: SODIUM BICARBONATE TAB 650 MG TABLET PO ×2 (08:40→16:51)
[2024-12-16] MEDS: VALSARTAN 160 MG TABLET 320 MG BY MOUTH (08:40)
[2024-12-16] MEDS: SERTRALINE HCL 50 MG TABLET 150 MG PO (08:42)
[2024-12-16] MEDS: ASPIRIN 81 MG ENTERIC TABLET PO (08:43)
[2024-12-16] MEDS: VALBENAZINE 80 MG PO (08:43)
[2024-12-16] MEDS: ISOSORBIDE MONONITRATE 60 MG TAB.ER.24H 120 MG PO (08:43)
[2024-12-16] MEDS: [UNRECOGNIZED DRUG - OTHER] PO (08:43)
--- NOTE | 2024-12-16 09:37 | P.PNNP_ITS ---
Progress Note: A&P Assessment and Plan (1) Acute kidney injury: Code(s): N17.9 - Acute kidney failure, unspecified Status: Acute Assessment and Plan: * as noted by admission labs (creatinine of 2.3mg/dL) * fluctuating since admission * due to bradycardia versus transient hypotension (leading to syncope) versus other (CKD progression)? * see #2 * evaluation to date noted * renal ultrasound w/o obstruction * urine electrolytes pre-renal * urine eosinophils negative * CPK normal * nephrotic range proteinuria * consider holding ARB (but I worry that this will cause her BP to further worsen so will continue for now) * trial of IVFs ongoing * follow trend of repeat labs and UOP (2) Stage 3b chronic kidney disease: Code(s): N18.32 - Chronic kidney disease, stage 3b Status: Chronic Assessment and Plan: * creatinine 1.87mg/dL in July 2024 * running 1.2 - 1.8mg/dL since 2020 * some of these fluctuations are associated with acute hospitalizations * she may have a component of CKD progression... * reviewed labs from 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 Menendez ([facility] Nephrology) for management of CKD (3) Syncope: Qualifiers: Syncope type: unspecified Qualified Code(s): R55 - Syncope and collapse Code(s): R55 - Syncope and collapse Status: Acute Assessment and Plan: * noted by admission history: * fall to knees with head strike 2 days prior to presentation * another episode on the day of admission * follow telemetry * Echo noted: * left ventricular systolic function is normal, estimated at 60-65% * left ventricular diastolic function is grade I diastolic dysfunction * moderate aortic valve sclerosis * no pulmonary hypertension, estimated pulmonary arterial systolic pressure is 20 mmHg * BP control * fall precautions * PT/OT as tolerated (4) Bradycardia: Code(s): R00.1 - Bradycardia, unspecified Status: Acute Assessment and Plan: * noted on presentation * carvedilol with parameters * Cardiology recommendations noted (5) Hypertension: Code(s): I10 - Essential (primary) hypertension Status: Chronic Assessment and Plan: * elevated on presentation as well (170s - 190s systolic) * resume home medications * oral hydralazine added * changing amlodipine to nifedipine XL * PRN IV medications * follow trend of hemodynamics (6) Chronic obstructive pulmonary disease, unspecified: Qualifiers: COPD type: unspecified COPD Qualified Code(s): J44.9 - Chronic obstructive pulmonary disease, unspecified Code(s): J44.9 - Chronic obstructive pulmonary disease, unspecified Status: Chronic Assessment and Plan: * known history * follows with Pulmonary at [facility] * no evidence of exacerbation * continue home inhalers Will continue to follow. L Subjective Date/time seen: 12/16/24 09:37 Interval history: Follow-up for acute kidney injury/acute renal failure on chronic kidney disease. No apparent distress voiced at the time of my visit; renal function/creatinine relatively stable with stable urine output and electrolytes; working with PT/OT as tolerated; no other events overnight or earlier today. Exam 2 Narrative: General: elderly but WD/WN female in NAD Heart: normal S1 and S2; no rub Lungs: coarse breath sounds Abdomen: soft, nontender, nondistended, positive bowel sounds Extremities: no cyanosis or clubbing; no edema Skin: warm and dry Objective Data Vital Signs Vital Signs: Vital Signs Temp Pulse Resp BP Pulse Ox O2 Del Method 12/16/24 08:42 97.6 F 56 L 14 168/74 H 97 12/16/24 08:00 Room Air 12/16/24 07:54 56 L 14 12/16/24 07:49 56 L 14 12/16/24 05:48 97 F L 53 L 18 162/63 H 97 12/16/24 04:00 52 L 12/16/24 01:55 CPAP 12/16/24 00:00 57 L 12/16/24 00:00 55 L 16 174/67 H 99 12/15/24 20:48 55 L 12/15/24 20:37 54 L 16 12/15/24 20:32 56 L 16 12/15/24 20:32 96 Room Air 12/15/24 20:00 55 L 12/15/24 20:00 Room Air 12/15/24 20:00 98.4 F 52 L 18 181/71 H 96 Intake/Output Intake/Output: Intake & Output 12/13/24 12/14/24 12/15/24 12/16/24 23:59 23:59 23:59 23:59 Intake Total 1000 2760 3920 1780 Output Total 8108 040 0915 Balance 1000 1660 3020 230 Meds/Results Medications: Active Medications Generic Name Dose Route Start Last Admin Trade Name Freq PRN Reason Stop Dose Admin Acetaminophen 500 mg 12/14/24 00:15 Acetaminophen 500 Mg Tablet PO Q6H PRN Headache Hydrocodone Bitart/Acetaminophen 1 tab 12/14/24 00:15 12/16/24 11:34 Hydrocodone/Acetaminophen (*Crx) 10-325 Mg Tablet PO 1 tab Q6H PRN Administration Pain Albuterol 2 puff 12/14/24 00:15 Albuterol Sulfate (*Sp) Aerosol 1 Puff INHALATION Q4HRT PRN Shortness Of Breath Albuterol 2.5 mg 12/14/24 02:00 12/16/24 13:18 Albuterol Sulfate Neb 2.5 Mg/3 Ml Inh INHALATION 2.5 mg Q6HRT LORENZO Administration Amantadine HCl 100 mg 12/14/24 00:15 12/15/24 20:47 Amantadine Hcl 100 Mg Capsule PO 100 mg QHS LORENZO Administration Amlodipine Besylate 10 mg 12/14/24 09:00 12/16/24 08:42 Amlodipine Besylate 10 Mg Tablet PO 10 mg DAILY LORENZO Administration Aspirin 81 mg 12/14/24 09:00 12/16/24 08:43 Aspirin 81 Mg Enteric Tablet PO 81 mg DAILY LORENZO Administration Atorvastatin Calcium 80 mg 12/14/24 21:00 12/15/24 20:47 Atorvastatin 40 Mg Tablet PO 80 mg QHS LORENZO Administration Carvedilol 25 mg 12/14/24 22:21 12/16/24 08:42 Carvedilol 25 Mg Tablet PO 25 mg Q12HR LORENZO Administration Heparin Sodium (Porcine) 5,000 units 12/14/24 09:00 12/16/24 08:40 Heparin Sodium 5,000 Units/Ml Vial SUB-Q 5,000 units Q12HR LORENZO Administration Hydralazine HCl 10 mg 12/13/24 22:13 12/14/24 04:41 Hydralazine Hcl 20 Mg/Ml Vial IV PUSH 10 mg Q4H PRN Administration Blood Pressure - High Hydralazine HCl 20 mg 12/16/24 17:00 12/16/24 16:51 Hydralazine 10 Mg Tablet PO 20 mg QID LORENZO Administration Sodium Chloride 1,000 mls @ 75 mls/hr 12/13/24 20:50 12/16/24 09:39 Normal Saline Iv IV CONT 75 mls/hr .[id number] LORENZO Administration Isosorbide Mononitrate 120 mg 12/14/24 09:00 12/16/24 08:43 Isosorbide Mononitrate 60 Mg Tab.Er.24h PO 120 mg DAILY LORENZO Administration Meclizine HCl 25 mg 12/14/24 16:40 12/14/24 20:39 Meclizine Hcl 25 Mg Tablet BY MOUTH 25 mg BID PRN Administration Dizziness Non-Formulary Medication 80 mg 12/16/24 09:00 12/16/24 08:43 Valbenazine [Ingrezza] PO 01/15/25 08:59 80 mg DAILY LORENZO Administration Ondansetron HCl 4 mg 12/14/24 09:05 Ondansetron Inj 4 Mg/2 Ml Vial IV PUSH Q6H PRN Nausea And Vomiting Pantoprazole Sodium 40 mg 12/14/24 09:00 12/16/24 08:39 Pantoprazole Sodium Iv 40 Mg Vial IV PUSH 40 mg QAM LORENZO Administration Perflutren Lipid Microsphere 0 ml 12/13/24 22:17 Perflutren Lipid Microspheres 1.5 Ml Vial Diluted To 10 Ml Total Volume IV PUSH 12/16/24 22:18 ONCE PRN adequate visualization Protocol Polyethylene Glycol 17 gm 12/14/24 09:05 Polyethylene Glycol 3350 17 Gm Powd.Pack PO QAM PRN Constipation Ropinirole HCl 0.25 mg 12/14/24 00:20 12/15/24 20:49 Ropinirole Hcl 0.25 Mg Tablet PO 0.25 mg HS LORENZO Administration Sertraline HCl 150 mg 12/14/24 09:00 12/16/24 08:42 Sertraline Hcl 50 Mg Tablet PO 150 mg DAILY LORENZO Administration Sodium Bicarbonate 650 mg 12/14/24 09:00 12/16/24 16:51 Sodium Bicarbonate Tab 650 Mg Tablet PO 650 mg BID LORENZO Administration Topiramate 50 mg 12/14/24 00:15 12/16/24 08:40 Topiramate 25 Mg Tablet PO 50 mg Q12HR LORENZO Administration Trazodone HCl 100 mg 12/14/24 00:20 12/15/24 22:18 Trazodone Hcl 50 Mg Tablet PO 100 mg QHS PRN Administration Sleep Umeclidinium/Vilanterol 1 puff 12/14/24 08:00 12/16/24 07:46 Umeclidinium/Vilanterol 62.5-25 Mcg Ellipta INHALATION 1 puff DAILYRT LORENZO Administration Valsartan 320 mg 12/14/24 09:00 12/16/24 08:40 Valsartan 160 Mg Tablet BY MOUTH 320 mg DAILY LORENZO Administration Vitamin D 25 mcg 12/14/24 09:00 12/16/24 08:39 Cholecalciferol (Vitamin D3) 25 Mcg (1,000 Units) Tablet PO 25 mcg DAILY LORENZO Administration Radiology Results: ITS Impressions Chest X-Ray 12/13/24 17:44 Impression: 1: No acute cardiopulmonary disease. Knee X-Ray 12/13/24 17:48 Impression: 1: No acute bone or joint abnormality. Head CT 12/13/24 18:09 IMPRESSION: 1. No acute intracranial abnormality. Head/Cervical Spine/Facial Bones CT 12/13/24 18:11 IMPRESSION: 1. No acute abnormality of the facial bones or cervical spine. 2: Progression of severe cervical spondylosis with fusion at C5-7. Carotid Doppler Study 12/14/24 11:51 IMPRESSION: 1. Less than 50% stenosis in the right internal carotid artery by sonographic criteria. 2. Less than 50% stenosis in the left internal carotid artery by sonographic criteria. Renal Ultrasound 12/15/24 19:32 Impression: 1: Bilateral echogenic foci of the kidneys consistent with nonobstructing renal stones. Labs Labs: Laboratory Tests 12/16/24 05:25 12/16/24 05:25 Calcium 7.8 L Phosphorus 3.7 Magnesium 1.9 Total Bilirubin 0.2 AST 23 ALT 11 Alkaline Phosphatase 101 Total Creatine Kinase 46 Total Protein 6.1 L Albumin 3.0 L
[2024-12-16] MEDS: SODIUM CHLORIDE 0.9% IV 1,000 ML 75 ML IV CONT ×2 (09:39→23:34)
[2024-12-16] MEDS: ATORVASTATIN 40 MG TABLET 80 MG PO (20:49)
[2024-12-16] MEDS: AMANTADINE HCL 100 MG CAPSULE PO (20:52)
[2024-12-16] MEDS: MECLIZINE HCL 25 MG TABLET BY MOUTH (22:40)
[2024-12-17] VITALS (36 sets, daily range): BP systolic 110–156; BP diastolic 57–76; PULSE 50–93; RESP 18; TEMP 36.4–37.2; O2SAT 94–100
[2024-12-17] MEDS: HYDROcodone/acetaminophen (*CRX) 10-325 MG TABLET 1 TAB PO ×3 (06:11→19:24)
[2024-12-17 06:15] LABS: Hematocrit 31.1 % (37.0-47.0); Hemoglobin 9.7 g/dL (12.0-15.0); Immature Granulocyte Percent A 0.3 % (0-0.5); Lymphocytes Absolute Auto 1.98 K/mm3 (0.9-3.2); Mean Corpuscular HGB Conc 31.2 g/dl (32-36); Mean Corpuscular Hemoglobin 29.8 pg (26-34); Mean Corpuscular Volume 95.7 fl (80-100); Nucleated Red Blood Cells Absolute Auto 0.000 K/mm3 (0.0-0.012); Nucleated Red Blood Cells Perc 0.0 % (0.0-0.2); Platelet Count Result 152 k/mm3 (150-375); Red Blood Count 3.25 M/mm3 (4.2-5.4); White Blood Count 6.9 K/mm3 (4.5-10.0)
[2024-12-17 06:36] LABS: Albumin Level 2.8 g/dL (3.5-5.1); Anion Gap 4 mmol/L (4-12); Blood Urea Nitrogen 25 mg/dL (7-17); Calcium 7.5 mg/dL (8.4-10.2); Carbon Dioxide 23 mmol/L (22-30); Chloride 112 mmol/L (98-107); Estimated CRCL calculation 23 ml/min; Estimated Glomerular Filt Rate 24; Glucose 87 mg/dL (65-110); Magnesium 1.8 mg/dL (1.6-2.3); Potassium 3.7 mmol/L (3.4-5.0); Sodium 139 mmol/L (137-145)
[2024-12-17] MEDS: ALBUTEROL SULFATE NEB 2.5 MG/3 ML INH INHALATION ×3 (07:56→21:33)
[2024-12-17] MEDS: UMECLIDINIUM/VILANTEROL 62.5-25 MCG ELLIPTA 1 PUFF INHALATION (07:56)
[2024-12-17] MEDS: TOPIRAMATE 25 MG TABLET 50 MG PO ×2 (08:21→21:18)
[2024-12-17] MEDS: VALSARTAN 160 MG TABLET 320 MG BY MOUTH (08:22)
[2024-12-17] MEDS: ISOSORBIDE MONONITRATE 60 MG TAB.ER.24H 120 MG PO (08:22)
[2024-12-17] MEDS: CHOLECALCIFEROL (VITAMIN D3) 25 MCG (1,000 UNITS) TABLET PO (08:22)
[2024-12-17] MEDS: PANTOPRAZOLE SODIUM IV 40 MG VIAL IV PUSH (08:23)
[2024-12-17] MEDS: SODIUM BICARBONATE TAB 650 MG TABLET PO ×2 (08:23→17:13)
[2024-12-17] MEDS: SERTRALINE HCL 50 MG TABLET 150 MG PO (08:23)
[2024-12-17] MEDS: ASPIRIN 81 MG ENTERIC TABLET PO (08:23)
[2024-12-17] MEDS: VALBENAZINE 80 MG PO (08:30)
[2024-12-17] MEDS: [UNRECOGNIZED DRUG - OTHER] PO (08:30)
[2024-12-17] MEDS: MECLIZINE HCL 25 MG TABLET BY MOUTH (08:37)
--- NOTE | 2024-12-17 10:52 | P.PNNP_ITS ---
Progress Note: A&P Assessment and Plan (1) Acute kidney injury: Code(s): N17.9 - Acute kidney failure, unspecified Status: Acute Assessment and Plan: * as noted by admission labs (creatinine of 2.3mg/dL) * fluctuating since admission * due to bradycardia versus transient hypotension (leading to syncope) versus other (CKD progression)? * see #2 * evaluation to date noted * renal ultrasound w/o obstruction * urine electrolytes pre-renal * urine eosinophils negative * CPK normal * nephrotic range proteinuria * consider holding ARB (but I worry that this will cause her BP to further worsen so will continue for now) * the patient is getting 0.9% saline at 75 per hour. * Her creatinine bounces around quite a bit. Her baseline creatinine seems to be about 1.9 and currently it runs between 2 and 2.2 this isn't too far away from her baseline. Will continue IV fluids for now. There is no sign of volume overload * check a creatinine in the morning (2) Stage 3b chronic kidney disease: Code(s): N18.32 - Chronic kidney disease, stage 3b Status: Chronic Assessment and Plan: * creatinine 1.87mg/dL in July 2024 * running 1.2 - 1.8mg/dL since 2020 * some of these fluctuations are associated with acute hospitalizations * she may have a component of CKD progression... 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 Menendez ([facility] Nephrology) for management of CKD * remains above baseline. Continuing IV fluids. (3) Syncope: Qualifiers: Syncope type: unspecified Qualified Code(s): R55 - Syncope and collapse Code(s): R55 - Syncope and collapse Status: Acute Assessment and Plan: * noted by admission history: * fall to knees with head strike 2 days prior to presentation * another episode on the day of admission * follow telemetry * Echo noted: * left ventricular systolic function is normal, estimated at 60-65% * left ventricular diastolic function is grade I diastolic dysfunction * moderate aortic valve sclerosis * no pulmonary hypertension, estimated pulmonary arterial systolic pressure is 20 mmHg * BP control * fall precautions * PT/OT as tolerated * Evaluation per hospitalists and cardiology. (4) Bradycardia: Code(s): R00.1 - Bradycardia, unspecified Status: Acute Assessment and Plan: * noted on presentation * carvedilol with parameters * Cardiology recommendations noted * heart rate currently running 51-64 (5) Hypertension: Code(s): I10 - Essential (primary) hypertension Status: Chronic Assessment and Plan: * elevated on presentation as well (170s - 190s systolic) * resume home medications * oral hydralazine on board * still on amlodipine. Blood pressure still high. Hydralazine just increased yesterday to 20. Hydralazine has reflex tachycardia and so might be a better medicine for her rather than changing to nifedipine which can rarely cause low heart rate she has only had 3 doses of the new hydralazine so will wait a little bit to see how her blood pressure responds to this. * PRN IV medications * follow trend of hemodynamics (6) Chronic obstructive pulmonary disease, unspecified: Qualifiers: COPD type: unspecified COPD Qualified Code(s): J44.9 - Chronic obstructive pulmonary disease, unspecified Code(s): J44.9 - Chronic obstructive pulmonary disease, unspecified Status: Chronic Assessment and Plan: * known history * follows with Pulmonary at [facility] * no evidence of exacerbation * continue home inhalers Will continue to follow. Subjective Date/time seen: 12/17/24 10:52 Interval history: patient feels about the same. No chest pain or shortness of breath Exam Narrative: General: elderly but WD/WN female in NAD Heart: normal S1 and S2; no rub or gallop Lungs: coarse breath sounds Abdomen: soft, nontender, nondistended, positive bowel sounds Extremities: no edema Skin: no rash Objective Data Vital Signs Vital Signs: Vital Signs - 24 hr 12/16/24 12:00 12/16/24 12:00 12/16/24 13:21 Temperature 97.6 F Pulse Rate 56 L 56 L 56 L Respiratory Rate 14 14 Blood Pressure 168/74 H Pulse Oximetry 97 Oxygen Delivery 12/16/24 13:25 12/16/24 14:25 12/16/24 15:54 Temperature 97.1 F L Pulse Rate 56 L 2 L Respiratory Rate 16 16 Blood Pressure 167/71 H Pulse Oximetry 98 Oxygen Delivery Room Air 12/16/24 16:00 12/16/24 20:00 12/16/24 20:00 Temperature 97.7 F Pulse Rate 49 L 60 Respiratory Rate 18 Blood Pressure 171/68 H Pulse Oximetry 98 Oxygen Delivery Room Air 12/16/24 20:00 12/16/24 21:16 12/16/24 21:22 Temperature Pulse Rate 58 L 58 L 61 Respiratory Rate 18 18 Blood Pressure Pulse Oximetry Oxygen Delivery 12/17/24 00:00 12/17/24 00:00 12/17/24 04:00 Temperature 97.9 F Pulse Rate 60 55 L 51 L Respiratory Rate 18 Blood Pressure 156/71 H Pulse Oximetry 100 Oxygen Delivery 12/17/24 04:00 12/17/24 06:29 12/17/24 07:57 Temperature 97.7 F 97.9 F Pulse Rate 60 60 60 Respiratory Rate 18 18 18 Blood Pressure 155/76 H 155/63 H Pulse Oximetry 99 99 Oxygen Delivery 12/17/24 08:03 12/17/24 08:22 Temperature Pulse Rate 64 58 L Respiratory Rate 18 Blood Pressure Pulse Oximetry Oxygen Delivery Intake/Output Intake/Output: Intake & Output 12/14/24 12/15/24 12/16/24 12/17/24 23:59 23:59 23:59 23:59 Intake Total 2760 3920 3260 120 Output Total 3826 007 9792 1800 Balance 1660 3020 910 -1680 Meds/Results Medications: Active Medications Generic Name Dose Route Start Last Admin Trade Name Freq PRN Reason Stop Dose Admin Acetaminophen 500 mg 12/14/24 00:15 Acetaminophen 500 Mg Tablet PO Q6H PRN Headache Hydrocodone Bitart/Acetaminophen 1 tab 12/14/24 00:15 12/17/24 06:11 Hydrocodone/Acetaminophen (*Crx) 10-325 Mg Tablet PO 1 tab Q6H PRN Administration Pain Albuterol 2 puff 12/14/24 00:15 Albuterol Sulfate (*Sp) Aerosol 1 Puff INHALATION Q4HRT PRN Shortness Of Breath Albuterol 2.5 mg 12/14/24 02:00 12/17/24 07:56 Albuterol Sulfate Neb 2.5 Mg/3 Ml Inh INHALATION 2.5 mg Q6HRT LORENZO Administration Amantadine HCl 100 mg 12/14/24 00:15 12/16/24 20:52 Amantadine Hcl 100 Mg Capsule PO 100 mg QHS LORENZO Administration Amlodipine Besylate 10 mg 12/14/24 09:00 12/17/24 08:23 Amlodipine Besylate 10 Mg Tablet PO 10 mg DAILY LORENZO Administration Aspirin 81 mg 12/14/24 09:00 12/17/24 08:23 Aspirin 81 Mg Enteric Tablet PO 81 mg DAILY LORENZO Administration Atorvastatin Calcium 80 mg 12/14/24 21:00 12/16/24 20:49 Atorvastatin 40 Mg Tablet PO 80 mg QHS LORENZO Administration Carvedilol 25 mg 12/14/24 22:21 12/17/24 08:22 Carvedilol 25 Mg Tablet PO 25 mg Q12HR LORENZO Administration Heparin Sodium (Porcine) 5,000 units 12/14/24 09:00 12/17/24 08:23 Heparin Sodium 5,000 Units/Ml Vial SUB-Q 5,000 units Q12HR LORENZO Administration Hydralazine HCl 10 mg 12/13/24 22:13 12/17/24 06:21 Hydralazine Hcl 20 Mg/Ml Vial IV PUSH 10 mg Q4H PRN Administration Blood Pressure - High Hydralazine HCl 20 mg 12/16/24 17:00 12/17/24 08:22 Hydralazine 10 Mg Tablet PO 20 mg QID LORENZO Administration Sodium Chloride 1,000 mls @ 75 mls/hr 12/13/24 20:50 12/16/24 23:34 Normal Saline Iv IV CONT 75 mls/hr .[id number] LORENZO Administration Isosorbide Mononitrate 120 mg 12/14/24 09:00 12/17/24 08:22 Isosorbide Mononitrate 60 Mg Tab.Er.24h PO 120 mg DAILY LORENZO Administration Meclizine HCl 25 mg 12/14/24 16:40 12/17/24 08:37 Meclizine Hcl 25 Mg Tablet BY MOUTH 25 mg BID PRN Administration Dizziness Non-Formulary Medication 80 mg 12/16/24 09:00 12/17/24 08:30 Valbenazine [Ingrezza] PO 01/15/25 08:59 80 mg DAILY LORENZO Administration Ondansetron HCl 4 mg 12/14/24 09:05 Ondansetron Inj 4 Mg/2 Ml Vial IV PUSH Q6H PRN Nausea And Vomiting Pantoprazole Sodium 40 mg 12/14/24 09:00 12/17/24 08:23 Pantoprazole Sodium Iv 40 Mg Vial IV PUSH 40 mg QAM LORENZO Administration Polyethylene Glycol 17 gm 12/14/24 09:05 Polyethylene Glycol 3350 17 Gm Powd.Pack PO QAM PRN Constipation Ropinirole HCl 0.25 mg 12/14/24 00:20 12/16/24 20:49 Ropinirole Hcl 0.25 Mg Tablet PO 0.25 mg HS LORENZO Administration Sertraline HCl 150 mg 12/14/24 09:00 12/17/24 08:23 Sertraline Hcl 50 Mg Tablet PO 150 mg DAILY LORENZO Administration Sodium Bicarbonate 650 mg 12/14/24 09:00 12/17/24 08:23 Sodium Bicarbonate Tab 650 Mg Tablet PO 650 mg BID LORENZO Administration Topiramate 50 mg 12/14/24 00:15 12/17/24 08:21 Topiramate 25 Mg Tablet PO 50 mg Q12HR LORENZO Administration Trazodone HCl 100 mg 12/14/24 00:20 12/16/24 22:40 Trazodone Hcl 50 Mg Tablet PO 100 mg QHS PRN Administration Sleep Umeclidinium/Vilanterol 1 puff 12/14/24 08:00 12/17/24 07:56 Umeclidinium/Vilanterol 62.5-25 Mcg Ellipta INHALATION 1 puff DAILYRT LORENZO Administration Valsartan 320 mg 12/14/24 09:00 12/17/24 08:22 Valsartan 160 Mg Tablet BY MOUTH 320 mg DAILY LORENZO Administration Vitamin D 25 mcg 12/14/24 09:00 12/17/24 08:22 Cholecalciferol (Vitamin D3) 25 Mcg (1,000 Units) Tablet PO 25 mcg DAILY LORENZO Administration Radiology Results: ITS Impressions Chest X-Ray 12/13/24 17:44 Impression: 1: No acute cardiopulmonary disease. Knee X-Ray 12/13/24 17:48 Impression: 1: No acute bone or joint abnormality. Head CT 12/13/24 18:09 IMPRESSION: 1. No acute intracranial abnormality. Head/Cervical Spine/Facial Bones CT 12/13/24 18:11 IMPRESSION: 1. No acute abnormality of the facial bones or cervical spine. 2: Progression of severe cervical spondylosis with fusion at C5-7. Carotid Doppler Study 12/14/24 11:51 IMPRESSION: 1. Less than 50% stenosis in the right internal carotid artery by sonographic criteria. 2. Less than 50% stenosis in the left internal carotid artery by sonographic criteria. Renal Ultrasound 12/15/24 19:32 Impression: 1: Bilateral echogenic foci of the kidneys consistent with nonobstructing renal stones. Labs Labs: Laboratory Results - last 24 hr 12/17/24 05:57 WBC 6.9 RBC 3.25 L Hgb 9.7 L Hct 31.1 L MCV 95.7 MCH 29.8 MCHC 31.2 L RDW 13.7 Plt Count 152 MPV 11.0 H Immature Gran % (Auto) 0.3 Neut % (Auto) 58.0 Lymph % (Auto) 28.6 [place] % (Auto) 9.4 H Eos % (Auto) 3.3 Baso % (Auto) 0.4 Lymph # (Auto) 1.98 [place] # (Auto) 0.7 H Eos # (Auto) 0.2 Baso # (Auto) 0.0 Abs Immat Gran (auto) 0.02 Absolute Neuts (auto) 4.0 Absolute Nucleated RBC 0.000 Nucleated RBC % 0.0 Sodium 139 Potassium 3.7 Chloride 112 H Carbon Dioxide 23 Anion Gap 4 BUN 25 H Creatinine 2.03 H Estim Creat Clear Calc 23 Estimated GFR 24 L Glucose 87 Calcium 7.5 L Phosphorus 3.9 Magnesium 1.8 Albumin 2.8 L
--- NOTE | 2024-12-17 15:29 | WPDNEURCNPN ---
Assessment and Plan Assessment and plan (1) Syncope: Qualifiers: Syncope type: unspecified Qualified Code(s): R55 - Syncope and collapse Code(s): R55 - Syncope and collapse Status: Acute (2) Generalized headaches: Code(s): R51.9 - Headache, unspecified Status: Acute (3) Chronic neck pain: Code(s): M54.2 - Cervicalgia; G89.29 - Other chronic pain Status: Acute (4) Parkinson disease: Code(s): G20 - Parkinson's disease Status: Acute (5) Tardive dyskinesia: Code(s): G24.01 - Drug induced subacute dyskinesia Status: Acute (6) Bipolar disorder, unspecified: Code(s): F31.9 - Bipolar disorder, unspecified Status: Chronic (7) Benign hypertension with CKD (chronic kidney disease) stage III: Code(s): I12.9 - Hypertensive chronic kidney disease with stage 1 through stage 4 chronic kidney disease, or unspecified chronic kidney disease; N18.30 - Chronic kidney disease, stage 3 unspecified Status: Acute (8) CAD (coronary artery disease): Code(s): I25.10 - Atherosclerotic heart disease of [place] coronary artery without angina pectoris Status: Chronic (9) Bradycardia: Code(s): R00.1 - Bradycardia, unspecified Status: Acute (10) Menieres disease: Code(s): H81.09 - Meniere's disease, unspecified ear Status: Chronic (11) Stage 3b chronic kidney disease: Code(s): N18.32 - Chronic kidney disease, stage 3b Status: Chronic (12) BERTA (obstructive sleep apnea): Code(s): G47.33 - Obstructive sleep apnea (adult) (pediatric) Status: Chronic Plan The patient has a long history of multiple many medical or neurologic problems and she follows with a neurologist at [facility]. She has been diagnosed to have tardive dyskinesia and Parkinson's disease and she has also stated 024 mg twice a day amantadine 100 mg a day. Clinically I do not see any dyskinesia or Parkinson's symptoms however these may be under control with current medications and hence I would not suggest any changes. She has been found to have low heart rate and this is being evaluated by the driver messenger. I will suggest check her blood pressure supine and standing money for monitor for any cardiac arrhythmias. She has a cochlear implant on the left side and seek cannot undergo MRI of the brain. Scan of brain did not show any significant abnormal findings. The history given does not appear to be suggestive of seizure disorder however I have advised her to discuss this with her and asked him to describe it in case if there was any suspicion of seizure to let me know. She also had a carotid Doppler study of 12/14/2024 which did not show any abnormality. Echocardiogram was also performed which did not show any significant abnormalities however the some enlarged the left atrium. I will suggest EEG. Should follow-up with results any further changes from neurologic point of view. Consult date: 12/17/24 HPI: Eduarda Wall is a 69 year old female With history of dizziness and fall and loss of consciousness. Patient states that she has had several spells where she may pass out. She has history of Meniere's disease and she attributes her episodes of dizziness to that. She feels dizzy if she turns in the bed or when she gets out of the bed. She also has been diagnosed to have drug-induced tardive dyskinesia and Parkinson's disease and she is on [employer] 0 and amantadine. She follows up [facility] with a neurologist. She also has history of obstructive sleep apnea syndrome and on CPAP. She has history of carcinoma of breast in 2002 and there was no recurrence of the same. There is also history of coronary artery disease and chronic kidney disease. She has been a smoker. She had CT scan of brain which did not show any acute findings and a she has a left cochlear implant and hence he is unable to undergo an MRI. Her creatinine was 2.3. Echocardiogram did not show any significant abnormality. CT scan of the cervical spine shows significant arthritic changes at C5-C7 level. Hemoglobin of 9.7. Found to have bradycardia with heart rate of 50 and first-degree heart block. She has been evaluated by driver messenger. The patient lives with the . She denies any difficulty with memory. Review of Systems Review of Systems: All systems reviewed & are unremarkable except as noted in HPI and below [facility] Past Medical History Medical History Coronary artery disease Obstructive sleep apnea on CPAP Cancer of left breast Coronary artery disease On home O2 at night Seronegative rheumatoid arthritis of both hands Tardive dyskinesia Lumbar degenerative disc disease Degenerative cervical disc Menieres disease Adenomatous colon polyp Gastroparesis Gastritis Parkinson disease Constipation Inflammatory arthritis Bipolar disorder, unspecified Chronic kidney disease, stage 3 (moderate) Chronic obstructive pulmonary disease, unspecified Essential (primary) hypertension Surgical History Surgical History History of bowel resection 10/17/23 Laparoscopic small bowel resection with anastomosis. Laparoscopic adhesiolysis with release of small bowel obstruction History of coronary artery stent placement stent placed 07/2023 History of breast surgery History of hernia surgery History of hysterectomy History of cholecystectomy History of liver biopsy Status post mastectomy Family History Family History Sibling Family history of malignant neoplasm Family history of diabetes mellitus in first degree relative Family history of lupus erythematosus Family history of malignant neoplasm of brain Family history of malignant neoplasm of breast Mother Family history of chronic obstructive pulmonary disease, Onset Age: 76 Patient's mother is Family history of emphysema Family history of malignant neoplasm of breast Father Family history of malignant neoplasm of esophagus, Onset Age: 54 Patient's father is Other Family history of cardiovascular disease Family history of malignant neoplasm of male breast Family history of obesity Social History Social History Social History: Surrogate medical decision maker: Saman Wall, friend. Code status: Full code. Smoking packs per day: 0.5 Smoking cigarettes per day: 10.0 Years smoked: 50 Smoking pack-years: 25.00 Smoking status: Former smoker Second hand tobacco smoke exposure: Yes Alcohol intake: former Substance use: current Substance use type: marijuana Other substance usage details: DAILY Last use: 12/13/2024 Do You Feel Safe in your Home?: Yes Lack of Transportation: No Lack of Food: Never True Current Housing: I Have Housing Concerned About Future Housing: No Difficulty Paying Gas/Electric Bills: No Difficulty Paying for Meds: No Currently Unemployed: No Education: High School Diploma/GED Difficulty w/ Childcare or Family Care: No Living arrangements: with family Spiritual care concerns: No Meds Home Medications and Allergies Home Medications ?Medication ?Instructions ?Recorded ?Confirmed ?Type aspirin 81 mg tablet,delayed 81 mg PO DAILY 05/02/21 12/13/24 History release cholecalciferol (vitamin D3) 25 25 mcg PO DAILY #90 caps 12/05/21 12/13/24 Rx mcg (1,000 unit) capsule sertraline 100 mg tablet 150 mg PO DAILY 08/28/22 12/13/24 History isosorbide mononitrate 60 mg 120 mg PO DAILY 10/29/22 12/13/24 History tablet,extended release 24 hr albuterol sulfate 90 mcg/actuation 2 puff inhalation Q4H PRN 10/13/23 12/13/24 History aerosol inhaler Shortness Of Breath amantadine HCl 100 mg capsule 100 mg PO QHS 10/13/23 12/13/24 History atorvastatin 80 mg tablet 80 mg PO QHS 10/13/23 12/13/24 History carvedilol 25 mg tablet 25 mg PO Q12H 10/13/23 12/13/24 History topiramate 25 mg tablet 50 mg PO Q12H 10/13/23 12/13/24 History trazodone 100 mg tablet 100 mg PO QHS PRN Sleep 10/13/23 12/13/24 History nitroglycerin 0.4 mg BYMOUTH PRN PRN Angina 11/17/23 12/13/24 History acetaminophen 500 mg tablet 500 mg PO Q6H PRN headache 12/01/23 12/13/24 History (Tylenol Extra Strength) amlodipine 10 mg tablet 10 mg PO DAILY #90 tabs 07/11/24 12/13/24 Rx valsartan 160 mg tablet See Rx Instructions .Route 10/07/24 12/13/24 Rx .COMPLEX #180 tabs albuterol sulfate 2.5 mg/3 mL 2.5 mg (3 mL) continuous 11/28/24 12/13/24 Rx (0.083 %) solution for nebulization nebulization Q6H #90 mL meclizine 25 mg tablet See Rx Instructions .Route 11/30/24 12/13/24 Rx .COMPLEX #60 tabs hydrocodone 10 mg-acetaminophen 1 tablet PO Q6H PRN pain #120 tabs 12/08/24 12/13/24 Rx 325 mg tablet ondansetron 4 mg disintegrating See Rx Instructions .Route 12/12/24 12/13/24 Rx tablet .COMPLEX #60 tabs Vitamin K 100 mcg BYMOUTH DAILY 12/13/24 12/13/24 History naloxegol 12.5 mg tablet (Movantik) 12.5 mg PO DAILY@0630 12/13/24 12/13/24 History ropinirole 0.25 mg tablet 0.25 mg PO .daily hs 12/13/24 12/13/24 History sodium bicarbonate 650 mg tablet 650 mg PO BID 12/13/24 12/13/24 History umeclidinium 62.5 mcg-vilanterol 1 inh inhalation Q24H 12/13/24 12/13/24 History 25 mcg/actuation powdr for inhalation (Anoro Ellipta) valbenazine 80 mg capsule 80 mg PO DAILY 12/13/24 12/13/24 History (Ingrezza) Allergies Allergy/AdvReac Type Severity Reaction Status Date / Time adhesive tape Allergy Mild rash Verified 12/13/24 17:05 tetanus immune globulin Allergy Mild HIVES Verified 12/13/24 17:05 cyclobenzaprine Allergy Unknown TINGLING Verified 12/13/24 17:05 SENSATION IN EXTREMITIES fluoxetine Allergy Unknown Rash,Swelli Verified 12/13/24 17:05 ng tetanus and diphtheria Allergy Unknown Swelling Verified 12/13/24 17:05 toxoids Tetanus Vaccines and Toxoid Allergy Unknown rash Verified 12/13/24 17:05 bupropion (From Wellbutrin) Allergy dizzy Verified 12/13/24 17:05 Vital Signs Vital Signs - 24 hr 12/16/24 15:54 12/16/24 16:00 12/16/24 20:00 Temperature 97.1 F L 97.7 F Pulse Rate 2 L 49 L 60 Respiratory Rate 16 18 Blood Pressure 167/71 H 171/68 H Pulse Oximetry 98 98 Oxygen Delivery 12/16/24 20:00 12/16/24 20:00 12/16/24 21:16 Temperature Pulse Rate 58 L 58 L Respiratory Rate 18 Blood Pressure Pulse Oximetry Oxygen Delivery Room Air 12/16/24 21:22 12/17/24 00:00 12/17/24 00:00 Temperature 97.9 F Pulse Rate 61 60 55 L Respiratory Rate 18 18 Blood Pressure 156/71 H Pulse Oximetry 100 Oxygen Delivery 12/17/24 04:00 12/17/24 04:00 12/17/24 06:29 Temperature 97.7 F 97.9 F Pulse Rate 51 L 60 60 Respiratory Rate 18 18 Blood Pressure 155/76 H 155/63 H Pulse Oximetry 99 99 Oxygen Delivery 12/17/24 07:57 12/17/24 08:00 12/17/24 08:00 Temperature Pulse Rate 60 53 L Respiratory Rate 18 Blood Pressure Pulse Oximetry Oxygen Delivery Room Air 12/17/24 08:03 12/17/24 08:22 12/17/24 12:00 Temperature 97.6 F Pulse Rate 64 58 L 54 L Respiratory Rate 18 18 Blood Pressure 155/62 H Pulse Oximetry 95 Oxygen Delivery 12/17/24 12:00 12/17/24 13:45 12/17/24 13:52 Temperature Pulse Rate 50 L 54 L 51 L Respiratory Rate 18 18 Blood Pressure Pulse Oximetry Oxygen Delivery Exam Narrative: Fully conscious alert oriented to self time place and person. No aphasia or dysarthria. Jatin headache was unremarkable. Cranial nerves in your testing show normal findings. Visual bustamante by confrontation are normal. Pupils were equal reactive light. No facial asymmetry. Tongue was midline. Motor system normal power and tone in both upper and lower limbs. I did not see any dyskinesia or cogwheeling at this time. Sensory exam is unremarkable. Deep tendon reflexes did not show any significant abnormalities such as hyper reflexia in the lower limbs compared to upper limbs. The reflexes were symmetric. Results Labs 12/17/24 05:57 12/17/24 05:57 Labs: Short CBC 12/17/24 Range/Units 05:57 WBC 6.9 (4.5-10.0) K/mm3 Hgb 9.7 L (12.0-15.0) g/dL Hct 31.1 L (37.0-47.0) % Plt Count 152 (150-375) k/mm3 [facility] 12/17/24 05:57 Sodium 139 Potassium 3.7 Chloride 112 H Carbon Dioxide 23 BUN 25 H Creatinine 2.03 H Glucose 87 Calcium 7.5 L Liver Function 12/17/24 Range/Units 05:57 Albumin 2.8 L (3.5-5.1) g/dL
[2024-12-17] MEDS: ACETAMINOPHEN 500 MG TABLET PO (17:12)
[2024-12-17] MEDS: SODIUM CHLORIDE 0.9% IV 1,000 ML 75 ML IV CONT (17:14)
[2024-12-17] MEDS: ATORVASTATIN 40 MG TABLET 80 MG PO (21:16)
[2024-12-17] MEDS: AMANTADINE HCL 100 MG CAPSULE PO (21:16)
[2024-12-18] VITALS (43 sets, daily range): BP systolic 138–163; BP diastolic 62–72; PULSE 48–68; RESP 16–18; TEMP 36.5–36.9; O2SAT 92–100
[2024-12-18] MEDS: SODIUM CHLORIDE 0.9% IV 1,000 ML 75 ML IV CONT ×2 (03:36→19:55)
[2024-12-18] MEDS: HYDROcodone/acetaminophen (*CRX) 10-325 MG TABLET 1 TAB PO ×4 (04:20→23:13)
[2024-12-18 06:22] LABS: Hematocrit 32.3 % (37.0-47.0); Hemoglobin 9.5 g/dL (12.0-15.0); Immature Granulocyte Percent A 0.5 % (0-0.5); Lymphocytes Absolute Auto 1.65 K/mm3 (0.9-3.2); Mean Corpuscular HGB Conc 29.4 g/dl (32-36); Mean Corpuscular Hemoglobin 30.1 pg (26-34); Mean Corpuscular Volume 102.2 fl (80-100); Nucleated Red Blood Cells Absolute Auto 0.000 K/mm3 (0.0-0.012); Nucleated Red Blood Cells Perc 0.0 % (0.0-0.2); Platelet Count Result 132 k/mm3 (150-375); Red Blood Count 3.16 M/mm3 (4.2-5.4); White Blood Count 5.8 K/mm3 (4.5-10.0)
[2024-12-18 06:38] LABS: Albumin Level 2.5 g/dL (3.5-5.1); Anion Gap 4 mmol/L (4-12); Blood Urea Nitrogen 24 mg/dL (7-17); Calcium 7.0 mg/dL (8.4-10.2); Carbon Dioxide 22 mmol/L (22-30); Chloride 114 mmol/L (98-107); Estimated CRCL calculation 22 ml/min; Estimated Glomerular Filt Rate 23; Glucose 78 mg/dL (65-110); Magnesium 1.8 mg/dL (1.6-2.3); Potassium 3.5 mmol/L (3.4-5.0); Sodium 140 mmol/L (137-145)
--- NOTE | 2024-12-18 07:59 | P.PNIM_ITS ---
Progress Note: A&P Assessment and Plan (1) Hypertension: Qualifiers: Hypertension type: unspecified Qualified Code(s): I10 - Essential (primary) hypertension Code(s): I10 - Essential (primary) hypertension Status: Acute (2) Bradycardia: Code(s): R00.1 - Bradycardia, unspecified Status: Acute (3) Menieres disease: Code(s): H81.09 - Meniere's disease, unspecified ear Status: Chronic Plan Appreciate Cardiology recommendations. Telemetry, telemetry showing sinus bradycardia without any other events. Serum creatinine improved. Continue to monitor. Patient wishes to be full code. Subjective Date/time seen: 12/15/2024 at 3:00 p.m. Interval history: No acute overnight events. Patient feels slightly better. Review of Systems Review of Systems: All systems reviewed & are unremarkable except as noted in HPI and below (Subjective) Exam Const: General: comfortable and no acute distress Other: A&O x3 HENMT: Mouth: Yes moist mucous membranes Eyes: Pupils: Equal, round and reactive pupils present Neck: Neck: supple Resp: Effort & Inspection: normal respiratory effort Auscultation: clear to auscultation bilaterally Cardio: Rate: regular rate Rhythm: regular rhythm GI: Inspection: non-distended GI Palp: Yes Soft to palpation Neuro: Motor exam (neuro): 5/5 motor strength present throughout Extrem: General: no edema Objective Data Vital Signs Vital Signs: Vital Signs - 24 hr 12/17/24 08:00 12/17/24 08:00 12/17/24 08:03 Temperature Pulse Rate 53 L 64 Respiratory Rate 18 Blood Pressure Pulse Oximetry Oxygen Delivery Room Air Fraction of Inspired Oxygen 12/17/24 08:22 12/17/24 12:00 12/17/24 12:00 Temperature 97.6 F Pulse Rate 58 L 54 L 50 L Respiratory Rate 18 Blood Pressure 155/62 H Pulse Oximetry 95 Oxygen Delivery Fraction of Inspired Oxygen 12/17/24 13:45 12/17/24 13:52 12/17/24 16:00 Temperature 98.9 F Pulse Rate 54 L 51 L 93 Respiratory Rate 18 18 18 Blood Pressure 110/57 L Pulse Oximetry 97 Oxygen Delivery Fraction of Inspired Oxygen 12/17/24 16:00 12/17/24 18:15 12/17/24 18:30 Temperature Pulse Rate 54 L 51 L 58 L Respiratory Rate Blood Pressure Pulse Oximetry Oxygen Delivery Fraction of Inspired Oxygen 12/17/24 18:45 12/17/24 19:00 12/17/24 19:15 Temperature Pulse Rate 56 L 53 L 52 L Respiratory Rate Blood Pressure Pulse Oximetry Oxygen Delivery Fraction of Inspired Oxygen 12/17/24 19:30 12/17/24 19:45 12/17/24 20:00 Temperature Pulse Rate 54 L 53 L Respiratory Rate Blood Pressure Pulse Oximetry Oxygen Delivery Room Air Fraction of Inspired Oxygen 12/17/24 20:00 12/17/24 20:00 12/17/24 20:15 Temperature Pulse Rate 51 L 53 L 54 L Respiratory Rate Blood Pressure Pulse Oximetry Oxygen Delivery Fraction of Inspired Oxygen 12/17/24 20:30 12/17/24 20:45 12/17/24 21:00 Temperature Pulse Rate 52 L 50 L 51 L Respiratory Rate Blood Pressure Pulse Oximetry Oxygen Delivery Fraction of Inspired Oxygen 12/17/24 21:15 12/17/24 21:30 12/17/24 21:33 Temperature Pulse Rate 53 L 53 L 53 L Respiratory Rate 18 Blood Pressure Pulse Oximetry Oxygen Delivery Fraction of Inspired Oxygen 12/17/24 21:35 12/17/24 21:45 12/17/24 22:00 Temperature Pulse Rate 53 L 51 L 51 L Respiratory Rate 18 Blood Pressure Pulse Oximetry 94 Oxygen Delivery Room Air Fraction of Inspired Oxygen 12/17/24 22:15 12/17/24 22:15 12/17/24 22:30 Temperature 98.4 F Pulse Rate 51 L 52 L 52 L Respiratory Rate 18 Blood Pressure 150/65 H Pulse Oximetry 96 Oxygen Delivery Fraction of Inspired Oxygen 12/17/24 22:45 12/17/24 23:00 12/17/24 23:15 Temperature Pulse Rate 52 L 56 L 55 L Respiratory Rate Blood Pressure Pulse Oximetry Oxygen Delivery Fraction of Inspired Oxygen 12/17/24 23:30 12/17/24 23:45 12/18/24 00:00 Temperature Pulse Rate 54 L 67 56 L Respiratory Rate Blood Pressure Pulse Oximetry Oxygen Delivery Fraction of Inspired Oxygen 12/18/24 00:00 12/18/24 00:15 12/18/24 00:24 Temperature Pulse Rate 66 53 L 55 L Respiratory Rate 18 Blood Pressure 163/72 H Pulse Oximetry 100 Oxygen Delivery Fraction of Inspired Oxygen 12/18/24 00:30 12/18/24 00:45 12/18/24 01:00 Temperature Pulse Rate 51 L 49 L 51 L Respiratory Rate Blood Pressure Pulse Oximetry Oxygen Delivery Fraction of Inspired Oxygen 12/18/24 01:15 12/18/24 01:30 12/18/24 01:47 Temperature Pulse Rate 50 L 48 L 49 L Respiratory Rate Blood Pressure Pulse Oximetry Oxygen Delivery Fraction of Inspired Oxygen 12/18/24 02:01 12/18/24 02:15 12/18/24 02:30 Temperature Pulse Rate 49 L 51 L 51 L Respiratory Rate Blood Pressure Pulse Oximetry Oxygen Delivery Fraction of Inspired Oxygen 12/18/24 02:45 12/18/24 03:00 12/18/24 03:15 Temperature Pulse Rate 50 L 49 L 48 L Respiratory Rate Blood Pressure Pulse Oximetry Oxygen Delivery Fraction of Inspired Oxygen 12/18/24 03:30 12/18/24 03:45 12/18/24 04:00 Temperature Pulse Rate 49 L 49 L 53 L Respiratory Rate Blood Pressure Pulse Oximetry Oxygen Delivery Fraction of Inspired Oxygen 12/18/24 04:00 12/18/24 04:15 12/18/24 04:30 Temperature Pulse Rate 52 L 52 L 50 L Respiratory Rate Blood Pressure Pulse Oximetry Oxygen Delivery Fraction of Inspired Oxygen 12/18/24 04:45 12/18/24 05:00 12/18/24 05:15 Temperature Pulse Rate 50 L 49 L 54 L Respiratory Rate Blood Pressure Pulse Oximetry Oxygen Delivery Fraction of Inspired Oxygen 12/18/24 05:30 12/18/24 05:45 12/18/24 06:02 Temperature Pulse Rate 50 L 50 L 54 L Respiratory Rate Blood Pressure Pulse Oximetry Oxygen Delivery Fraction of Inspired Oxygen 12/18/24 06:15 12/18/24 06:30 12/18/24 06:33 Temperature 97.7 F Pulse Rate 50 L 52 L 51 L Respiratory Rate 18 Blood Pressure 163/72 H Pulse Oximetry 100 Oxygen Delivery Fraction of Inspired Oxygen Intake/Output Intake/Output: Intake & Output 12/15/24 12/16/24 12/17/24 12/18/24 23:59 23:59 23:59 23:59 Intake Total 3920 3260 1600 777.5 Output Total 900 2350 2400 Balance 3020 910 -800 777.5 Meds/Results Medications: Active Medications Generic Name Dose Route Start Last Admin Trade Name Freq PRN Reason Stop Dose Admin Acetaminophen 500 mg 12/14/24 00:15 12/17/24 17:12 Acetaminophen 500 Mg Tablet PO 500 mg Q6H PRN Administration Headache Hydrocodone Bitart/Acetaminophen 1 tab 12/14/24 00:15 12/18/24 04:20 Hydrocodone/Acetaminophen (*Crx) 10-325 Mg Tablet PO 1 tab Q6H PRN Administration Pain Albuterol 2 puff 12/14/24 00:15 Albuterol Sulfate (*Sp) Aerosol 1 Puff INHALATION Q4HRT PRN Shortness Of Breath Albuterol 2.5 mg 12/14/24 02:00 12/18/24 04:35 Albuterol Sulfate Neb 2.5 Mg/3 Ml Inh INHALATION Not Given Q6HRT LORENZO Amantadine HCl 100 mg 12/14/24 00:15 12/17/24 21:16 Amantadine Hcl 100 Mg Capsule PO 100 mg QHS LORENZO Administration Amlodipine Besylate 10 mg 12/14/24 09:00 12/17/24 08:23 Amlodipine Besylate 10 Mg Tablet PO 10 mg DAILY LORENZO Administration Aspirin 81 mg 12/14/24 09:00 12/17/24 08:23 Aspirin 81 Mg Enteric Tablet PO 81 mg DAILY LORENZO Administration Atorvastatin Calcium 80 mg 12/14/24 21:00 12/17/24 21:16 Atorvastatin 40 Mg Tablet PO 80 mg QHS LORENZO Administration Carvedilol 25 mg 12/14/24 22:21 12/17/24 21:17 Carvedilol 25 Mg Tablet PO 25 mg Q12HR LORENZO Administration Heparin Sodium (Porcine) 5,000 units 12/14/24 09:00 12/17/24 21:17 Heparin Sodium 5,000 Units/Ml Vial SUB-Q 5,000 units Q12HR LORENZO Administration Hydralazine HCl 10 mg 12/13/24 22:13 12/17/24 06:21 Hydralazine Hcl 20 Mg/Ml Vial IV PUSH 10 mg Q4H PRN Administration Blood Pressure - High Hydralazine HCl 20 mg 12/16/24 17:00 12/17/24 21:17 Hydralazine 10 Mg Tablet PO 20 mg QID LORENZO Administration Sodium Chloride 1,000 mls @ 75 mls/hr 12/13/24 20:50 12/18/24 03:36 Normal Saline Iv IV CONT 75 mls/hr .[id number] LORENZO Administration Isosorbide Mononitrate 120 mg 12/14/24 09:00 12/17/24 08:22 Isosorbide Mononitrate 60 Mg Tab.Er.24h PO 120 mg DAILY LORENZO Administration Meclizine HCl 25 mg 12/14/24 16:40 12/17/24 08:37 Meclizine Hcl 25 Mg Tablet BY MOUTH 25 mg BID PRN Administration Dizziness Non-Formulary Medication 80 mg 12/16/24 09:00 12/17/24 08:30 Valbenazine [Ingrezza] PO 01/15/25 08:59 80 mg DAILY LORENZO Administration Ondansetron HCl 4 mg 12/14/24 09:05 Ondansetron Inj 4 Mg/2 Ml Vial IV PUSH Q6H PRN Nausea And Vomiting Pantoprazole Sodium 40 mg 12/14/24 09:00 12/17/24 08:23 Pantoprazole Sodium Iv 40 Mg Vial IV PUSH 40 mg QAM LORENZO Administration Polyethylene Glycol 17 gm 12/14/24 09:05 Polyethylene Glycol 3350 17 Gm Powd.Pack PO QAM PRN Constipation Ropinirole HCl 0.25 mg 12/14/24 00:20 12/17/24 21:18 Ropinirole Hcl 0.25 Mg Tablet PO 0.25 mg HS LORENZO Administration Sertraline HCl 150 mg 12/14/24 09:00 12/17/24 08:23 Sertraline Hcl 50 Mg Tablet PO 150 mg DAILY LORENZO Administration Sodium Bicarbonate 650 mg 12/14/24 09:00 12/17/24 17:13 Sodium Bicarbonate Tab 650 Mg Tablet PO 650 mg BID LORENZO Administration Topiramate 50 mg 12/14/24 00:15 12/17/24 21:18 Topiramate 25 Mg Tablet PO 50 mg Q12HR LORENZO Administration Trazodone HCl 100 mg 12/14/24 00:20 12/17/24 22:53 Trazodone Hcl 50 Mg Tablet PO 100 mg QHS PRN Administration Sleep Umeclidinium/Vilanterol 1 puff 12/14/24 08:00 12/17/24 07:56 Umeclidinium/Vilanterol 62.5-25 Mcg Ellipta INHALATION 1 puff DAILYRT LORENZO Administration Valsartan 320 mg 12/14/24 09:00 12/17/24 08:22 Valsartan 160 Mg Tablet BY MOUTH 320 mg DAILY LORENZO Administration Vitamin D 25 mcg 12/14/24 09:00 12/17/24 08:22 Cholecalciferol (Vitamin D3) 25 Mcg (1,000 Units) Tablet PO 25 mcg DAILY LORENZO Administration Radiology Results: ITS Impressions Chest X-Ray 12/13/24 17:44 Impression: 1: No acute cardiopulmonary disease. Knee X-Ray 12/13/24 17:48 Impression: 1: No acute bone or joint abnormality. Head CT 12/13/24 18:09 IMPRESSION: 1. No acute intracranial abnormality. Head/Cervical Spine/Facial Bones CT 12/13/24 18:11 IMPRESSION: 1. No acute abnormality of the facial bones or cervical spine. 2: Progression of severe cervical spondylosis with fusion at C5-7. Carotid Doppler Study 12/14/24 11:51 IMPRESSION: 1. Less than 50% stenosis in the right internal carotid artery by sonographic criteria. 2. Less than 50% stenosis in the left internal carotid artery by sonographic criteria. Renal Ultrasound 12/15/24 19:32 Impression: 1: Bilateral echogenic foci of the kidneys consistent with nonobstructing renal stones. Labs Labs: Laboratory Results - last 24 hr 12/18/24 05:55 WBC 5.8 RBC 3.16 L Hgb 9.5 L Hct 32.3 L MCV 102.2 H D MCH 30.1 MCHC 29.4 L RDW 13.9 Plt Count 132 L MPV 11.3 H Immature Gran % (Auto) 0.5 Neut % (Auto) 58.4 Lymph % (Auto) 28.3 [place] % (Auto) 8.9 H Eos % (Auto) 3.4 Baso % (Auto) 0.5 Lymph # (Auto) 1.65 [place] # (Auto) 0.5 Eos # (Auto) 0.2 Baso # (Auto) 0.0 Abs Immat Gran (auto) 0.03 Absolute Neuts (auto) 3.4 Absolute Nucleated RBC 0.000 Nucleated RBC % 0.0 Sodium 140 Potassium 3.5 Chloride 114 H Carbon Dioxide 22 Anion Gap 4 BUN 24 H Creatinine 2.15 H Estim Creat Clear Calc 22 Estimated GFR 23 L Glucose 78 Calcium 7.0 L Phosphorus 4.2 Magnesium 1.8 Albumin 2.5 L
--- NOTE | 2024-12-18 08:04 | P.PNIM_ITS ---
Progress Note: A&P Assessment and Plan (1) Accelerated hypertension: Code(s): I10 - Essential (primary) hypertension Status: Acute Plan Elevated blood pressures. Continue DRIVE THRU ORDER TAKER amlodipine. Continue isosorbide mononitrate 120 mg p.o. q.day. continue Coreg 25 mg p.o. b.i.d., start hydralazine 20 mg p.o. q.i.d.. Consult neurology. She feels as if her dizziness is causing him trouble walking. Subjective Date/time seen: 12/16/2024 at 3:00 p.m. Interval history: No acute overnight events. She complains of some dizziness Review of Systems Review of Systems: All systems reviewed & are unremarkable except as noted in HPI and below (Subjective) Exam Const: General: comfortable HENMT: Mouth: Yes moist mucous membranes Eyes: Pupils: Equal, round and reactive pupils present Neck: Neck: supple Resp: Effort & Inspection: normal respiratory effort Auscultation: clear to auscultation bilaterally Cardio: Rate: bradycardic Rhythm: regular rhythm GI: Inspection: non-distended GI Palp: Yes Soft to palpation Extrem: General: no edema Objective Data Vital Signs Vital Signs: Vital Signs - 24 hr 12/17/24 08:22 12/17/24 12:00 12/17/24 12:00 Temperature 97.6 F Pulse Rate 58 L 54 L 50 L Respiratory Rate 18 Blood Pressure 155/62 H Pulse Oximetry 95 Oxygen Delivery Fraction of Inspired Oxygen 12/17/24 13:45 12/17/24 13:52 12/17/24 16:00 Temperature 98.9 F Pulse Rate 54 L 51 L 93 Respiratory Rate 18 18 18 Blood Pressure 110/57 L Pulse Oximetry 97 Oxygen Delivery Fraction of Inspired Oxygen 12/17/24 16:00 12/17/24 18:15 12/17/24 18:30 Temperature Pulse Rate 54 L 51 L 58 L Respiratory Rate Blood Pressure Pulse Oximetry Oxygen Delivery Fraction of Inspired Oxygen 12/17/24 18:45 12/17/24 19:00 12/17/24 19:15 Temperature Pulse Rate 56 L 53 L 52 L Respiratory Rate Blood Pressure Pulse Oximetry Oxygen Delivery Fraction of Inspired Oxygen 12/17/24 19:30 12/17/24 19:45 12/17/24 20:00 Temperature Pulse Rate 54 L 53 L Respiratory Rate Blood Pressure Pulse Oximetry Oxygen Delivery Room Air Fraction of Inspired Oxygen 12/17/24 20:00 12/17/24 20:00 12/17/24 20:15 Temperature Pulse Rate 51 L 53 L 54 L Respiratory Rate Blood Pressure Pulse Oximetry Oxygen Delivery Fraction of Inspired Oxygen 12/17/24 20:30 12/17/24 20:45 12/17/24 21:00 Temperature Pulse Rate 52 L 50 L 51 L Respiratory Rate Blood Pressure Pulse Oximetry Oxygen Delivery Fraction of Inspired Oxygen 12/17/24 21:15 12/17/24 21:30 12/17/24 21:33 Temperature Pulse Rate 53 L 53 L 53 L Respiratory Rate 18 Blood Pressure Pulse Oximetry Oxygen Delivery Fraction of Inspired Oxygen 12/17/24 21:35 12/17/24 21:45 12/17/24 22:00 Temperature Pulse Rate 53 L 51 L 51 L Respiratory Rate 18 Blood Pressure Pulse Oximetry 94 Oxygen Delivery Room Air Fraction of Inspired Oxygen 21 12/17/24 22:15 12/17/24 22:15 12/17/24 22:30 Temperature 98.4 F Pulse Rate 51 L 52 L 52 L Respiratory Rate 18 Blood Pressure 150/65 H Pulse Oximetry 96 Oxygen Delivery Fraction of Inspired Oxygen 12/17/24 22:45 12/17/24 23:00 12/17/24 23:15 Temperature Pulse Rate 52 L 56 L 55 L Respiratory Rate Blood Pressure Pulse Oximetry Oxygen Delivery Fraction of Inspired Oxygen 12/17/24 23:30 12/17/24 23:45 12/18/24 00:00 Temperature Pulse Rate 54 L 67 56 L Respiratory Rate Blood Pressure Pulse Oximetry Oxygen Delivery Fraction of Inspired Oxygen 12/18/24 00:00 12/18/24 00:15 12/18/24 00:24 Temperature Pulse Rate 66 53 L 55 L Respiratory Rate 18 Blood Pressure 163/72 H Pulse Oximetry 100 Oxygen Delivery Fraction of Inspired Oxygen 12/18/24 00:30 12/18/24 00:45 12/18/24 01:00 Temperature Pulse Rate 51 L 49 L 51 L Respiratory Rate Blood Pressure Pulse Oximetry Oxygen Delivery Fraction of Inspired Oxygen 12/18/24 01:15 12/18/24 01:30 12/18/24 01:47 Temperature Pulse Rate 50 L 48 L 49 L Respiratory Rate Blood Pressure Pulse Oximetry Oxygen Delivery Fraction of Inspired Oxygen 12/18/24 02:01 12/18/24 02:15 12/18/24 02:30 Temperature Pulse Rate 49 L 51 L 51 L Respiratory Rate Blood Pressure Pulse Oximetry Oxygen Delivery Fraction of Inspired Oxygen 12/18/24 02:45 12/18/24 03:00 12/18/24 03:15 Temperature Pulse Rate 50 L 49 L 48 L Respiratory Rate Blood Pressure Pulse Oximetry Oxygen Delivery Fraction of Inspired Oxygen 12/18/24 03:30 12/18/24 03:45 12/18/24 04:00 Temperature Pulse Rate 49 L 49 L 53 L Respiratory Rate Blood Pressure Pulse Oximetry Oxygen Delivery Fraction of Inspired Oxygen 12/18/24 04:00 12/18/24 04:15 12/18/24 04:30 Temperature Pulse Rate 52 L 52 L 50 L Respiratory Rate Blood Pressure Pulse Oximetry Oxygen Delivery Fraction of Inspired Oxygen 12/18/24 04:45 12/18/24 05:00 12/18/24 05:15 Temperature Pulse Rate 50 L 49 L 54 L Respiratory Rate Blood Pressure Pulse Oximetry Oxygen Delivery Fraction of Inspired Oxygen 12/18/24 05:30 12/18/24 05:45 12/18/24 06:02 Temperature Pulse Rate 50 L 50 L 54 L Respiratory Rate Blood Pressure Pulse Oximetry Oxygen Delivery Fraction of Inspired Oxygen 12/18/24 06:15 12/18/24 06:30 12/18/24 06:33 Temperature 97.7 F Pulse Rate 50 L 52 L 51 L Respiratory Rate 18 Blood Pressure 163/72 H Pulse Oximetry 100 Oxygen Delivery Fraction of Inspired Oxygen Intake/Output Intake/Output: Intake & Output 12/15/24 12/16/24 12/17/24 12/18/24 23:59 23:59 23:59 23:59 Intake Total 3920 3260 1600 777.5 Output Total 900 2350 2400 Balance 3020 910 -800 777.5 Meds/Results Medications: Active Medications Generic Name Dose Route Start Last Admin Trade Name Freq PRN Reason Stop Dose Admin Acetaminophen 500 mg 12/14/24 00:15 12/17/24 17:12 Acetaminophen 500 Mg Tablet PO 500 mg Q6H PRN Administration Headache Hydrocodone Bitart/Acetaminophen 1 tab 12/14/24 00:15 12/18/24 04:20 Hydrocodone/Acetaminophen (*Crx) 10-325 Mg Tablet PO 1 tab Q6H PRN Administration Pain Albuterol 2 puff 12/14/24 00:15 Albuterol Sulfate (*Sp) Aerosol 1 Puff INHALATION Q4HRT PRN Shortness Of Breath Albuterol 2.5 mg 12/14/24 02:00 12/18/24 04:35 Albuterol Sulfate Neb 2.5 Mg/3 Ml Inh INHALATION Not Given Q6HRT REPLACED BY [facility] Amantadine HCl 100 mg 12/14/24 00:15 12/17/24 21:16 Amantadine Hcl 100 Mg Capsule PO 100 mg QHS LORENZO Administration Amlodipine Besylate 10 mg 12/14/24 09:00 12/17/24 08:23 Amlodipine Besylate 10 Mg Tablet PO 10 mg DAILY LORENZO Administration Aspirin 81 mg 12/14/24 09:00 12/17/24 08:23 Aspirin 81 Mg Enteric Tablet PO 81 mg DAILY LORENZO Administration Atorvastatin Calcium 80 mg 12/14/24 21:00 12/17/24 21:16 Atorvastatin 40 Mg Tablet PO 80 mg QHS LORENZO Administration Carvedilol 25 mg 12/14/24 22:21 12/17/24 21:17 Carvedilol 25 Mg Tablet PO 25 mg Q12HR LORENZO Administration Heparin Sodium (Porcine) 5,000 units 12/14/24 09:00 12/17/24 21:17 Heparin Sodium 5,000 Units/Ml Vial SUB-Q 5,000 units Q12HR LORENZO Administration Hydralazine HCl 10 mg 12/13/24 22:13 12/17/24 06:21 Hydralazine Hcl 20 Mg/Ml Vial IV PUSH 10 mg Q4H PRN Administration Blood Pressure - High Hydralazine HCl 20 mg 12/16/24 17:00 12/17/24 21:17 Hydralazine 10 Mg Tablet PO 20 mg QID LORENZO Administration Sodium Chloride 1,000 mls @ 75 mls/hr 12/13/24 20:50 12/18/24 03:36 Normal Saline Iv IV CONT 75 mls/hr .[id number] LORENZO Administration Isosorbide Mononitrate 120 mg 12/14/24 09:00 12/17/24 08:22 Isosorbide Mononitrate 60 Mg Tab.Er.24h PO 120 mg DAILY LORENZO Administration Meclizine HCl 25 mg 12/14/24 16:40 12/17/24 08:37 Meclizine Hcl 25 Mg Tablet BY MOUTH 25 mg BID PRN Administration Dizziness Non-Formulary Medication 80 mg 12/16/24 09:00 12/17/24 08:30 Valbenazine [Ingrezza] PO 01/15/25 08:59 80 mg DAILY LORENZO Administration Ondansetron HCl 4 mg 12/14/24 09:05 Ondansetron Inj 4 Mg/2 Ml Vial IV PUSH Q6H PRN Nausea And Vomiting Pantoprazole Sodium 40 mg 12/14/24 09:00 12/17/24 08:23 Pantoprazole Sodium Iv 40 Mg Vial IV PUSH 40 mg QAM LORENZO Administration Polyethylene Glycol 17 gm 12/14/24 09:05 Polyethylene Glycol 3350 17 Gm Powd.Pack PO QAM PRN Constipation Ropinirole HCl 0.25 mg 12/14/24 00:20 12/17/24 21:18 Ropinirole Hcl 0.25 Mg Tablet PO 0.25 mg HS LORENZO Administration Sertraline HCl 150 mg 12/14/24 09:00 12/17/24 08:23 Sertraline Hcl 50 Mg Tablet PO 150 mg DAILY LORENZO Administration Sodium Bicarbonate 650 mg 12/14/24 09:00 12/17/24 17:13 Sodium Bicarbonate Tab 650 Mg Tablet PO 650 mg BID LORENZO Administration Topiramate 50 mg 12/14/24 00:15 12/17/24 21:18 Topiramate 25 Mg Tablet PO 50 mg Q12HR LORENZO Administration Trazodone HCl 100 mg 12/14/24 00:20 12/17/24 22:53 Trazodone Hcl 50 Mg Tablet PO 100 mg QHS PRN Administration Sleep Umeclidinium/Vilanterol 1 puff 12/14/24 08:00 12/17/24 07:56 Umeclidinium/Vilanterol 62.5-25 Mcg Ellipta INHALATION 1 puff DAILYRT LORENZO Administration Valsartan 320 mg 12/14/24 09:00 12/17/24 08:22 Valsartan 160 Mg Tablet BY MOUTH 320 mg DAILY LORENZO Administration Vitamin D 25 mcg 12/14/24 09:00 12/17/24 08:22 Cholecalciferol (Vitamin D3) 25 Mcg (1,000 Units) Tablet PO 25 mcg DAILY LORENZO Administration Radiology Results: ITS Impressions Chest X-Ray 12/13/24 17:44 Impression: 1: No acute cardiopulmonary disease. Knee X-Ray 12/13/24 17:48 Impression: 1: No acute bone or joint abnormality. Head CT 12/13/24 18:09 IMPRESSION: 1. No acute intracranial abnormality. Head/Cervical Spine/Facial Bones CT 12/13/24 18:11 IMPRESSION: 1. No acute abnormality of the facial bones or cervical spine. 2: Progression of severe cervical spondylosis with fusion at C5-7. Carotid Doppler Study 12/14/24 11:51 IMPRESSION: 1. Less than 50% stenosis in the right internal carotid artery by sonographic criteria. 2. Less than 50% stenosis in the left internal carotid artery by sonographic criteria. Renal Ultrasound 12/15/24 19:32 Impression: 1: Bilateral echogenic foci of the kidneys consistent with nonobstructing renal stones. Labs Labs: Laboratory Results - last 24 hr 12/18/24 05:55 WBC 5.8 RBC 3.16 L Hgb 9.5 L Hct 32.3 L MCV 102.2 H D MCH 30.1 MCHC 29.4 L RDW 13.9 Plt Count 132 L MPV 11.3 H Immature Gran % (Auto) 0.5 Neut % (Auto) 58.4 Lymph % (Auto) 28.3 [place] % (Auto) 8.9 H Eos % (Auto) 3.4 Baso % (Auto) 0.5 Lymph # (Auto) 1.65 [place] # (Auto) 0.5 Eos # (Auto) 0.2 Baso # (Auto) 0.0 Abs Immat Gran (auto) 0.03 Absolute Neuts (auto) 3.4 Absolute Nucleated RBC 0.000 Nucleated RBC % 0.0 Sodium 140 Potassium 3.5 Chloride 114 H Carbon Dioxide 22 Anion Gap 4 BUN 24 H Creatinine 2.15 H Estim Creat Clear Calc 22 Estimated GFR 23 L Glucose 78 Calcium 7.0 L Phosphorus 4.2 Magnesium 1.8 Albumin 2.5 L
--- NOTE | 2024-12-18 08:06 | P.PNIM_ITS ---
Progress Note: A&P Assessment and Plan (1) Dizziness: Code(s): R42 - Dizziness and giddiness Status: Acute Plan Neurology recommendations ongoing. Pending EEG. Subjective Date/time seen: 12/17/2024 at 3:00 p.m. Interval history: Persistent dizziness still. Review of Systems Review of Systems: All systems reviewed & are unremarkable except as noted in HPI and below (Subjective) Exam Const: General: comfortable and no acute distress HENMT: Mouth: Yes moist mucous membranes Eyes: Pupils: Equal, round and reactive pupils present Other: No nystagmus Resp: Effort & Inspection: normal respiratory effort Auscultation: clear to auscultation bilaterally Cardio: Rate: bradycardic Rhythm: regular rhythm GI: GI Palp: Yes Soft to palpation and No Firmness to palpation present (GI) Neuro: Motor exam (neuro): 5/5 motor strength present throughout Extrem: General: no edema Objective Data Vital Signs Vital Signs: Vital Signs - 24 hr 12/17/24 08:22 12/17/24 12:00 12/17/24 12:00 Temperature 97.6 F Pulse Rate 58 L 54 L 50 L Respiratory Rate 18 Blood Pressure 155/62 H Pulse Oximetry 95 Oxygen Delivery Fraction of Inspired Oxygen 12/17/24 13:45 12/17/24 13:52 12/17/24 16:00 Temperature 98.9 F Pulse Rate 54 L 51 L 93 Respiratory Rate 18 18 18 Blood Pressure 110/57 L Pulse Oximetry 97 Oxygen Delivery Fraction of Inspired Oxygen 12/17/24 16:00 12/17/24 18:15 12/17/24 18:30 Temperature Pulse Rate 54 L 51 L 58 L Respiratory Rate Blood Pressure Pulse Oximetry Oxygen Delivery Fraction of Inspired Oxygen 12/17/24 18:45 12/17/24 19:00 12/17/24 19:15 Temperature Pulse Rate 56 L 53 L 52 L Respiratory Rate Blood Pressure Pulse Oximetry Oxygen Delivery Fraction of Inspired Oxygen 12/17/24 19:30 12/17/24 19:45 12/17/24 20:00 Temperature Pulse Rate 54 L 53 L Respiratory Rate Blood Pressure Pulse Oximetry Oxygen Delivery Room Air Fraction of Inspired Oxygen 12/17/24 20:00 12/17/24 20:00 12/17/24 20:15 Temperature Pulse Rate 51 L 53 L 54 L Respiratory Rate Blood Pressure Pulse Oximetry Oxygen Delivery Fraction of Inspired Oxygen 12/17/24 20:30 12/17/24 20:45 12/17/24 21:00 Temperature Pulse Rate 52 L 50 L 51 L Respiratory Rate Blood Pressure Pulse Oximetry Oxygen Delivery Fraction of Inspired Oxygen 12/17/24 21:15 12/17/24 21:30 12/17/24 21:33 Temperature Pulse Rate 53 L 53 L 53 L Respiratory Rate 18 Blood Pressure Pulse Oximetry Oxygen Delivery Fraction of Inspired Oxygen 12/17/24 21:35 12/17/24 21:45 12/17/24 22:00 Temperature Pulse Rate 53 L 51 L 51 L Respiratory Rate 18 Blood Pressure Pulse Oximetry 94 Oxygen Delivery Room Air Fraction of Inspired Oxygen 12/17/24 22:15 12/17/24 22:15 12/17/24 22:30 Temperature 98.4 F Pulse Rate 51 L 52 L 52 L Respiratory Rate 18 Blood Pressure 150/65 H Pulse Oximetry 96 Oxygen Delivery Fraction of Inspired Oxygen 12/17/24 22:45 12/17/24 23:00 12/17/24 23:15 Temperature Pulse Rate 52 L 56 L 55 L Respiratory Rate Blood Pressure Pulse Oximetry Oxygen Delivery Fraction of Inspired Oxygen 12/17/24 23:30 12/17/24 23:45 12/18/24 00:00 Temperature Pulse Rate 54 L 67 56 L Respiratory Rate Blood Pressure Pulse Oximetry Oxygen Delivery Fraction of Inspired Oxygen 12/18/24 00:00 12/18/24 00:15 12/18/24 00:24 Temperature Pulse Rate 66 53 L 55 L Respiratory Rate 18 Blood Pressure 163/72 H Pulse Oximetry 100 Oxygen Delivery Fraction of Inspired Oxygen 12/18/24 00:30 12/18/24 00:45 12/18/24 01:00 Temperature Pulse Rate 51 L 49 L 51 L Respiratory Rate Blood Pressure Pulse Oximetry Oxygen Delivery Fraction of Inspired Oxygen 12/18/24 01:15 12/18/24 01:30 12/18/24 01:47 Temperature Pulse Rate 50 L 48 L 49 L Respiratory Rate Blood Pressure Pulse Oximetry Oxygen Delivery Fraction of Inspired Oxygen 12/18/24 02:01 12/18/24 02:15 12/18/24 02:30 Temperature Pulse Rate 49 L 51 L 51 L Respiratory Rate Blood Pressure Pulse Oximetry Oxygen Delivery Fraction of Inspired Oxygen 12/18/24 02:45 12/18/24 03:00 12/18/24 03:15 Temperature Pulse Rate 50 L 49 L 48 L Respiratory Rate Blood Pressure Pulse Oximetry Oxygen Delivery Fraction of Inspired Oxygen 12/18/24 03:30 12/18/24 03:45 12/18/24 04:00 Temperature Pulse Rate 49 L 49 L 53 L Respiratory Rate Blood Pressure Pulse Oximetry Oxygen Delivery Fraction of Inspired Oxygen 12/18/24 04:00 12/18/24 04:15 12/18/24 04:30 Temperature Pulse Rate 52 L 52 L 50 L Respiratory Rate Blood Pressure Pulse Oximetry Oxygen Delivery Fraction of Inspired Oxygen 12/18/24 04:45 12/18/24 05:00 12/18/24 05:15 Temperature Pulse Rate 50 L 49 L 54 L Respiratory Rate Blood Pressure Pulse Oximetry Oxygen Delivery Fraction of Inspired Oxygen 12/18/24 05:30 12/18/24 05:45 12/18/24 06:02 Temperature Pulse Rate 50 L 50 L 54 L Respiratory Rate Blood Pressure Pulse Oximetry Oxygen Delivery Fraction of Inspired Oxygen 12/18/24 06:15 12/18/24 06:30 12/18/24 06:33 Temperature 97.7 F Pulse Rate 50 L 52 L 51 L Respiratory Rate 18 Blood Pressure 163/72 H Pulse Oximetry 100 Oxygen Delivery Fraction of Inspired Oxygen Intake/Output Intake/Output: Intake & Output 12/15/24 12/16/24 12/17/24 12/18/24 23:59 23:59 23:59 23:59 Intake Total 3920 3260 1600 777.5 Output Total 900 2350 2400 Balance 3020 910 -800 777.5 Meds/Results Medications: Active Medications Generic Name Dose Route Start Last Admin Trade Name Freq PRN Reason Stop Dose Admin Acetaminophen 500 mg 12/14/24 00:15 12/17/24 17:12 Acetaminophen 500 Mg Tablet PO 500 mg Q6H PRN Administration Headache Hydrocodone Bitart/Acetaminophen 1 tab 12/14/24 00:15 12/18/24 04:20 Hydrocodone/Acetaminophen (*Crx) 10-325 Mg Tablet PO 1 tab Q6H PRN Administration Pain Albuterol 2 puff 12/14/24 00:15 Albuterol Sulfate (*Sp) Aerosol 1 Puff INHALATION Q4HRT PRN Shortness Of Breath Albuterol 2.5 mg 12/14/24 02:00 12/18/24 04:35 Albuterol Sulfate Neb 2.5 Mg/3 Ml Inh INHALATION Not Given Q6HRT LORENZO Amantadine HCl 100 mg 12/14/24 00:15 12/17/24 21:16 Amantadine Hcl 100 Mg Capsule PO 100 mg QHS LORENZO Administration Amlodipine Besylate 10 mg 12/14/24 09:00 12/17/24 08:23 Amlodipine Besylate 10 Mg Tablet PO 10 mg DAILY LORENZO Administration Aspirin 81 mg 12/14/24 09:00 12/17/24 08:23 Aspirin 81 Mg Enteric Tablet PO 81 mg DAILY LORENZO Administration Atorvastatin Calcium 80 mg 12/14/24 21:00 12/17/24 21:16 Atorvastatin 40 Mg Tablet PO 80 mg QHS LORENZO Administration Carvedilol 25 mg 12/14/24 22:21 12/17/24 21:17 Carvedilol 25 Mg Tablet PO 25 mg Q12HR LORENZO Administration Heparin Sodium (Porcine) 5,000 units 12/14/24 09:00 12/17/24 21:17 Heparin Sodium 5,000 Units/Ml Vial SUB-Q 5,000 units Q12HR LORENZO Administration Hydralazine HCl 10 mg 12/13/24 22:13 12/17/24 06:21 Hydralazine Hcl 20 Mg/Ml Vial IV PUSH 10 mg Q4H PRN Administration Blood Pressure - High Hydralazine HCl 20 mg 12/16/24 17:00 12/17/24 21:17 Hydralazine 10 Mg Tablet PO 20 mg QID LORENZO Administration Sodium Chloride 1,000 mls @ 75 mls/hr 12/13/24 20:50 12/18/24 03:36 Normal Saline Iv IV CONT 75 mls/hr .[id number] LORENZO Administration Isosorbide Mononitrate 120 mg 12/14/24 09:00 12/17/24 08:22 Isosorbide Mononitrate 60 Mg Tab.Er.24h PO 120 mg DAILY LORENZO Administration Meclizine HCl 25 mg 12/14/24 16:40 12/17/24 08:37 Meclizine Hcl 25 Mg Tablet BY MOUTH 25 mg BID PRN Administration Dizziness Non-Formulary Medication 80 mg 12/16/24 09:00 12/17/24 08:30 Valbenazine [Ingrezza] PO 01/15/25 08:59 80 mg DAILY LORENZO Administration Ondansetron HCl 4 mg 12/14/24 09:05 Ondansetron Inj 4 Mg/2 Ml Vial IV PUSH Q6H PRN Nausea And Vomiting Pantoprazole Sodium 40 mg 12/14/24 09:00 12/17/24 08:23 Pantoprazole Sodium Iv 40 Mg Vial IV PUSH 40 mg QAM LORENZO Administration Polyethylene Glycol 17 gm 12/14/24 09:05 Polyethylene Glycol 3350 17 Gm Powd.Pack PO QAM PRN Constipation Ropinirole HCl 0.25 mg 12/14/24 00:20 12/17/24 21:18 Ropinirole Hcl 0.25 Mg Tablet PO 0.25 mg HS LORENZO Administration Sertraline HCl 150 mg 12/14/24 09:00 12/17/24 08:23 Sertraline Hcl 50 Mg Tablet PO 150 mg DAILY LORENZO Administration Sodium Bicarbonate 650 mg 12/14/24 09:00 12/17/24 17:13 Sodium Bicarbonate Tab 650 Mg Tablet PO 650 mg BID LORENZO Administration Topiramate 50 mg 12/14/24 00:15 12/17/24 21:18 Topiramate 25 Mg Tablet PO 50 mg Q12HR LORENZO Administration Trazodone HCl 100 mg 12/14/24 00:20 12/17/24 22:53 Trazodone Hcl 50 Mg Tablet PO 100 mg QHS PRN Administration Sleep Umeclidinium/Vilanterol 1 puff 12/14/24 08:00 12/17/24 07:56 Umeclidinium/Vilanterol 62.5-25 Mcg Ellipta INHALATION 1 puff DAILYRT LORENZO Administration Valsartan 320 mg 12/14/24 09:00 12/17/24 08:22 Valsartan 160 Mg Tablet BY MOUTH 320 mg DAILY LORENZO Administration Vitamin D 25 mcg 12/14/24 09:00 12/17/24 08:22 Cholecalciferol (Vitamin D3) 25 Mcg (1,000 Units) Tablet PO 25 mcg DAILY LORENZO Administration Radiology Results: ITS Impressions Chest X-Ray 12/13/24 17:44 Impression: 1: No acute cardiopulmonary disease. Knee X-Ray 12/13/24 17:48 Impression: 1: No acute bone or joint abnormality. Head CT 12/13/24 18:09 IMPRESSION: 1. No acute intracranial abnormality. Head/Cervical Spine/Facial Bones CT 12/13/24 18:11 IMPRESSION: 1. No acute abnormality of the facial bones or cervical spine. 2: Progression of severe cervical spondylosis with fusion at C5-7. Carotid Doppler Study 12/14/24 11:51 IMPRESSION: 1. Less than 50% stenosis in the right internal carotid artery by sonographic criteria. 2. Less than 50% stenosis in the left internal carotid artery by sonographic criteria. Renal Ultrasound 12/15/24 19:32 Impression: 1: Bilateral echogenic foci of the kidneys consistent with nonobstructing renal stones. Labs Labs: Laboratory Results - last 24 hr 12/18/24 05:55 WBC 5.8 RBC 3.16 L Hgb 9.5 L Hct 32.3 L MCV 102.2 H D MCH 30.1 MCHC 29.4 L RDW 13.9 Plt Count 132 L MPV 11.3 H Immature Gran % (Auto) 0.5 Neut % (Auto) 58.4 Lymph % (Auto) 28.3 [place] % (Auto) 8.9 H Eos % (Auto) 3.4 Baso % (Auto) 0.5 Lymph # (Auto) 1.65 [place] # (Auto) 0.5 Eos # (Auto) 0.2 Baso # (Auto) 0.0 Abs Immat Gran (auto) 0.03 Absolute Neuts (auto) 3.4 Absolute Nucleated RBC 0.000 Nucleated RBC % 0.0 Sodium 140 Potassium 3.5 Chloride 114 H Carbon Dioxide 22 Anion Gap 4 BUN 24 H Creatinine 2.15 H Estim Creat Clear Calc 22 Estimated GFR 23 L Glucose 78 Calcium 7.0 L Phosphorus 4.2 Magnesium 1.8 Albumin 2.5 L
[2024-12-18] MEDS: UMECLIDINIUM/VILANTEROL 62.5-25 MCG ELLIPTA 1 PUFF INHALATION (08:34)
[2024-12-18] MEDS: ALBUTEROL SULFATE NEB 2.5 MG/3 ML INH INHALATION ×3 (08:34→19:45)
[2024-12-18] MEDS: MECLIZINE HCL 25 MG TABLET BY MOUTH (09:24)
[2024-12-18] MEDS: PANTOPRAZOLE SODIUM IV 40 MG VIAL IV PUSH (09:24)
[2024-12-18] MEDS: SERTRALINE HCL 50 MG TABLET 150 MG PO (09:25)
[2024-12-18] MEDS: ISOSORBIDE MONONITRATE 60 MG TAB.ER.24H 120 MG PO (09:25)
[2024-12-18] MEDS: VALSARTAN 160 MG TABLET 320 MG BY MOUTH (09:26)
[2024-12-18] MEDS: TOPIRAMATE 25 MG TABLET 50 MG PO ×2 (09:26→21:12)
[2024-12-18] MEDS: [UNRECOGNIZED DRUG - OTHER] PO (09:26)
[2024-12-18] MEDS: VALBENAZINE 80 MG PO (09:26)
[2024-12-18] MEDS: ASPIRIN 81 MG ENTERIC TABLET PO (09:26)
[2024-12-18] MEDS: CHOLECALCIFEROL (VITAMIN D3) 25 MCG (1,000 UNITS) TABLET PO (09:26)
[2024-12-18] MEDS: SODIUM BICARBONATE TAB 650 MG TABLET PO ×2 (09:26→16:21)
--- NOTE | 2024-12-18 09:52 | P.PNNP_ITS ---
Progress Note: A&P Assessment and Plan (1) Acute kidney injury: Code(s): N17.9 - Acute kidney failure, unspecified Status: Acute Assessment and Plan: * as noted by admission labs (creatinine of 2.3mg/dL) * fluctuating since admission * due to bradycardia versus transient hypotension (leading to syncope) versus other (CKD progression)? * see #2 * evaluation to date noted * renal ultrasound w/o obstruction * urine electrolytes pre-renal * urine eosinophils negative * CPK normal * nephrotic range proteinuria * the patient is getting 0.9% saline at 75 per hour. * Her creatinine bounces around quite a bit. Her baseline creatinine seems to be about 1.9 and currently it runs between 2 and 2.2 this isn't too far away from her baseline. Will continue IV fluids for now. There is no sign of volume overload. No swelling or shortness of breath. Lungs are clear. * check Renal panel tomorrow (2) Stage 3b chronic kidney disease: Code(s): N18.32 - Chronic kidney disease, stage 3b Status: Chronic Assessment and Plan: * creatinine 1.87mg/dL in July 2024 * running 1.2 - 1.8mg/dL since 2020 * some of these fluctuations are associated with acute hospitalizations * she may have a component of CKD progression... 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 Menendez ([facility] Nephrology) for management of CKD * remains above baseline. Continuing IV fluids. (3) Syncope: Qualifiers: Syncope type: unspecified Qualified Code(s): R55 - Syncope and collapse Code(s): R55 - Syncope and collapse Status: Acute Assessment and Plan: * noted by admission history: * fall to knees with head strike 2 days prior to presentation * another episode on the day of admission * follow telemetry * Echo noted: * left ventricular systolic function is normal, estimated at 60-65% * left ventricular diastolic function is grade I diastolic dysfunction * moderate aortic valve sclerosis * no pulmonary hypertension, estimated pulmonary arterial systolic pressure is 20 mmHg * BP control * fall precautions * PT/OT as tolerated * Evaluation per hospitalists and cardiology. (4) Bradycardia: Code(s): R00.1 - Bradycardia, unspecified Status: Acute Assessment and Plan: * noted on presentation * carvedilol with parameters * Cardiology recommendations noted * heart rate currently running 51-64 (5) Hypertension: Code(s): I10 - Essential (primary) hypertension Status: Chronic Assessment and Plan: * elevated on presentation as well (170s - 190s systolic) * resume home medications * oral hydralazine on board * still on amlodipine. Blood pressure still high. Hydralazine just increased yesterday to 20. Hydralazine has reflex tachycardia and so might be a better medicine for her rather than changing to nifedipine which can rarely cause low heart rate she has only had 3 doses of the new hydralazine so will wait a little bit to see how her blood pressure responds to this. * PRN IV medications * follow trend of hemodynamics (6) Chronic obstructive pulmonary disease, unspecified: Qualifiers: COPD type: unspecified COPD Qualified Code(s): J44.9 - Chronic obstructive pulmonary disease, unspecified Code(s): J44.9 - Chronic obstructive pulmonary disease, unspecified Status: Chronic Assessment and Plan: * known history * follows with Pulmonary at [facility] * no evidence of exacerbation * continue home inhalers Will continue to follow. Subjective Date/time seen: 12/18/24 09:52 Interval history: patient is feeling okay. Eating some breakfast. No chest pain or shortness of breath Exam Narrative: General: elderly but WD/WN female in NAD Heart: normal S1 and S2; no rub Lungs: coarse breath sounds Abdomen: soft, nontender, nondistended, positive bowel sounds Extremities: no edema Skin: no rash or subcu nodules Objective Data Vital Signs Vital Signs: Vital Signs - 24 hr 12/17/24 12:00 12/17/24 12:00 12/17/24 13:45 Temperature 97.6 F Pulse Rate 54 L 50 L 54 L Respiratory Rate 18 18 Blood Pressure 155/62 H Pulse Oximetry 95 Oxygen Delivery Fraction of Inspired Oxygen 12/17/24 13:52 12/17/24 16:00 12/17/24 16:00 Temperature 98.9 F Pulse Rate 51 L 93 54 L Respiratory Rate 18 18 Blood Pressure 110/57 L Pulse Oximetry 97 Oxygen Delivery Fraction of Inspired Oxygen 12/17/24 18:15 12/17/24 18:30 12/17/24 18:45 Temperature Pulse Rate 51 L 58 L 56 L Respiratory Rate Blood Pressure Pulse Oximetry Oxygen Delivery Fraction of Inspired Oxygen 12/17/24 19:00 12/17/24 19:15 12/17/24 19:30 Temperature Pulse Rate 53 L 52 L 54 L Respiratory Rate Blood Pressure Pulse Oximetry Oxygen Delivery Fraction of Inspired Oxygen 12/17/24 19:45 12/17/24 20:00 12/17/24 20:00 Temperature Pulse Rate 53 L 51 L Respiratory Rate Blood Pressure Pulse Oximetry Oxygen Delivery Room Air Fraction of Inspired Oxygen 12/17/24 20:00 12/17/24 20:15 12/17/24 20:30 Temperature Pulse Rate 53 L 54 L 52 L Respiratory Rate Blood Pressure Pulse Oximetry Oxygen Delivery Fraction of Inspired Oxygen 12/17/24 20:45 12/17/24 21:00 12/17/24 21:15 Temperature Pulse Rate 50 L 51 L 53 L Respiratory Rate Blood Pressure Pulse Oximetry Oxygen Delivery Fraction of Inspired Oxygen 12/17/24 21:30 12/17/24 21:33 12/17/24 21:35 Temperature Pulse Rate 53 L 53 L 53 L Respiratory Rate 18 18 Blood Pressure Pulse Oximetry 94 Oxygen Delivery Room Air Fraction of Inspired Oxygen 12/17/24 21:45 12/17/24 22:00 12/17/24 22:15 Temperature 98.4 F Pulse Rate 51 L 51 L 51 L Respiratory Rate 18 Blood Pressure 150/65 H Pulse Oximetry 96 Oxygen Delivery Fraction of Inspired Oxygen 12/17/24 22:15 12/17/24 22:30 12/17/24 22:45 Temperature Pulse Rate 52 L 52 L 52 L Respiratory Rate Blood Pressure Pulse Oximetry Oxygen Delivery Fraction of Inspired Oxygen 12/17/24 23:00 12/17/24 23:15 12/17/24 23:30 Temperature Pulse Rate 56 L 55 L 54 L Respiratory Rate Blood Pressure Pulse Oximetry Oxygen Delivery Fraction of Inspired Oxygen 12/17/24 23:45 12/18/24 00:00 12/18/24 00:00 Temperature Pulse Rate 67 56 L 66 Respiratory Rate Blood Pressure Pulse Oximetry Oxygen Delivery Fraction of Inspired Oxygen 12/18/24 00:15 12/18/24 00:24 12/18/24 00:30 Temperature Pulse Rate 53 L 55 L 51 L Respiratory Rate 18 Blood Pressure 163/72 H Pulse Oximetry 100 Oxygen Delivery Fraction of Inspired Oxygen 12/18/24 00:45 12/18/24 01:00 12/18/24 01:15 Temperature Pulse Rate 49 L 51 L 50 L Respiratory Rate Blood Pressure Pulse Oximetry Oxygen Delivery Fraction of Inspired Oxygen 12/18/24 01:30 12/18/24 01:47 12/18/24 02:01 Temperature Pulse Rate 48 L 49 L 49 L Respiratory Rate Blood Pressure Pulse Oximetry Oxygen Delivery Fraction of Inspired Oxygen 12/18/24 02:15 12/18/24 02:30 12/18/24 02:45 Temperature Pulse Rate 51 L 51 L 50 L Respiratory Rate Blood Pressure Pulse Oximetry Oxygen Delivery Fraction of Inspired Oxygen 12/18/24 03:00 12/18/24 03:15 12/18/24 03:30 Temperature Pulse Rate 49 L 48 L 49 L Respiratory Rate Blood Pressure Pulse Oximetry Oxygen Delivery Fraction of Inspired Oxygen 12/18/24 03:45 12/18/24 04:00 12/18/24 04:00 Temperature Pulse Rate 49 L 53 L 52 L Respiratory Rate Blood Pressure Pulse Oximetry Oxygen Delivery Fraction of Inspired Oxygen 12/18/24 04:15 12/18/24 04:30 12/18/24 04:45 Temperature Pulse Rate 52 L 50 L 50 L Respiratory Rate Blood Pressure Pulse Oximetry Oxygen Delivery Fraction of Inspired Oxygen 12/18/24 05:00 12/18/24 05:15 12/18/24 05:30 Temperature Pulse Rate 49 L 54 L 50 L Respiratory Rate Blood Pressure Pulse Oximetry Oxygen Delivery Fraction of Inspired Oxygen 12/18/24 05:45 12/18/24 06:02 12/18/24 06:15 Temperature Pulse Rate 50 L 54 L 50 L Respiratory Rate Blood Pressure Pulse Oximetry Oxygen Delivery Fraction of Inspired Oxygen 12/18/24 06:30 12/18/24 06:33 12/18/24 08:34 Temperature 97.7 F Pulse Rate 52 L 51 L Respiratory Rate 18 18 Blood Pressure 163/72 H Pulse Oximetry 100 95 Oxygen Delivery Room Air Fraction of Inspired Oxygen 12/18/24 08:36 12/18/24 09:24 Temperature Pulse Rate 51 L Respiratory Rate 18 Blood Pressure Pulse Oximetry Oxygen Delivery Fraction of Inspired Oxygen Intake/Output Intake/Output: Intake & Output 12/15/24 12/16/24 12/17/24 12/18/24 23:59 23:59 23:59 23:59 Intake Total 3920 3260 1600 1257.5 Output Total 900 2350 2400 Balance 3020 910 -800 1257.5 Meds/Results Medications: Active Medications Generic Name Dose Route Start Last Admin Trade Name Freq PRN Reason Stop Dose Admin Acetaminophen 500 mg 12/14/24 00:15 12/17/24 17:12 Acetaminophen 500 Mg Tablet PO 500 mg Q6H PRN Administration Headache Hydrocodone Bitart/Acetaminophen 1 tab 12/14/24 00:15 12/18/24 04:20 Hydrocodone/Acetaminophen (*Crx) 10-325 Mg Tablet PO 1 tab Q6H PRN Administration Pain Albuterol 2 puff 12/14/24 00:15 Albuterol Sulfate (*Sp) Aerosol 1 Puff INHALATION Q4HRT PRN Shortness Of Breath Albuterol 2.5 mg 12/14/24 02:00 12/18/24 08:34 Albuterol Sulfate Neb 2.5 Mg/3 Ml Inh INHALATION 2.5 mg Q6HRT LORENZO Administration Amantadine HCl 100 mg 12/14/24 00:15 12/17/24 21:16 Amantadine Hcl 100 Mg Capsule PO 100 mg QHS LORENZO Administration Amlodipine Besylate 10 mg 12/14/24 09:00 12/18/24 09:26 Amlodipine Besylate 10 Mg Tablet PO 10 mg DAILY LORENZO Administration Aspirin 81 mg 12/14/24 09:00 12/18/24 09:26 Aspirin 81 Mg Enteric Tablet PO 81 mg DAILY LORENZO Administration Atorvastatin Calcium 80 mg 12/14/24 21:00 12/17/24 21:16 Atorvastatin 40 Mg Tablet PO 80 mg QHS LORENZO Administration Carvedilol 25 mg 12/14/24 22:21 12/18/24 09:24 Carvedilol 25 Mg Tablet PO 25 mg Q12HR LORENZO Administration Heparin Sodium (Porcine) 5,000 units 12/14/24 09:00 12/18/24 09:25 Heparin Sodium 5,000 Units/Ml Vial SUB-Q 5,000 units Q12HR LORENZO Administration Hydralazine HCl 10 mg 12/13/24 22:13 12/17/24 06:21 Hydralazine Hcl 20 Mg/Ml Vial IV PUSH 10 mg Q4H PRN Administration Blood Pressure - High Hydralazine HCl 20 mg 12/16/24 17:00 12/18/24 09:24 Hydralazine 10 Mg Tablet PO 20 mg QID LORENZO Administration Sodium Chloride 1,000 mls @ 75 mls/hr 12/13/24 20:50 12/18/24 03:36 Normal Saline Iv IV CONT 75 mls/hr .[id number] LORENZO Administration Isosorbide Mononitrate 120 mg 12/14/24 09:00 12/18/24 09:25 Isosorbide Mononitrate 60 Mg Tab.Er.24h PO 120 mg DAILY LORENZO Administration Meclizine HCl 25 mg 12/14/24 16:40 12/18/24 09:24 Meclizine Hcl 25 Mg Tablet BY MOUTH 25 mg BID PRN Administration Dizziness Non-Formulary Medication 80 mg 12/16/24 09:00 12/18/24 09:26 Valbenazine [Ingrezza] PO 01/15/25 08:59 80 mg DAILY LORENZO Administration Ondansetron HCl 4 mg 12/14/24 09:05 Ondansetron Inj 4 Mg/2 Ml Vial IV PUSH Q6H PRN Nausea And Vomiting Pantoprazole Sodium 40 mg 12/14/24 09:00 12/18/24 09:24 Pantoprazole Sodium Iv 40 Mg Vial IV PUSH 40 mg QAM LORENZO Administration Polyethylene Glycol 17 gm 12/14/24 09:05 Polyethylene Glycol 3350 17 Gm Powd.Pack PO QAM PRN Constipation Ropinirole HCl 0.25 mg 12/14/24 00:20 12/17/24 21:18 Ropinirole Hcl 0.25 Mg Tablet PO 0.25 mg HS LORENZO Administration Sertraline HCl 150 mg 12/14/24 09:00 12/18/24 09:25 Sertraline Hcl 50 Mg Tablet PO 150 mg DAILY LORENZO Administration Sodium Bicarbonate 650 mg 12/14/24 09:00 12/18/24 09:26 Sodium Bicarbonate Tab 650 Mg Tablet PO 650 mg BID LORENZO Administration Topiramate 50 mg 12/14/24 00:15 12/18/24 09:26 Topiramate 25 Mg Tablet PO 50 mg Q12HR LORENZO Administration Trazodone HCl 100 mg 12/14/24 00:20 12/17/24 22:53 Trazodone Hcl 50 Mg Tablet PO 100 mg QHS PRN Administration Sleep Umeclidinium/Vilanterol 1 puff 12/14/24 08:00 12/18/24 08:34 Umeclidinium/Vilanterol 62.5-25 Mcg Ellipta INHALATION 1 puff DAILYRT LORENZO Administration Valsartan 320 mg 12/14/24 09:00 12/18/24 09:26 Valsartan 160 Mg Tablet BY MOUTH 320 mg DAILY LORENZO Administration Vitamin D 25 mcg 12/14/24 09:00 12/18/24 09:26 Cholecalciferol (Vitamin D3) 25 Mcg (1,000 Units) Tablet PO 25 mcg DAILY LORENZO Administration Radiology Results: ITS Impressions Chest X-Ray 12/13/24 17:44 Impression: 1: No acute cardiopulmonary disease. Knee X-Ray 12/13/24 17:48 Impression: 1: No acute bone or joint abnormality. Head CT 12/13/24 18:09 IMPRESSION: 1. No acute intracranial abnormality. Head/Cervical Spine/Facial Bones CT 12/13/24 18:11 IMPRESSION: 1. No acute abnormality of the facial bones or cervical spine. 2: Progression of severe cervical spondylosis with fusion at C5-7. Carotid Doppler Study 12/14/24 11:51 IMPRESSION: 1. Less than 50% stenosis in the right internal carotid artery by sonographic criteria. 2. Less than 50% stenosis in the left internal carotid artery by sonographic criteria. Renal Ultrasound 12/15/24 19:32 Impression: 1: Bilateral echogenic foci of the kidneys consistent with nonobstructing renal stones. Labs Labs: Laboratory Results - last 24 hr 12/18/24 05:55 WBC 5.8 RBC 3.16 L Hgb 9.5 L Hct 32.3 L MCV 102.2 H D MCH 30.1 MCHC 29.4 L RDW 13.9 Plt Count 132 L MPV 11.3 H Immature Gran % (Auto) 0.5 Neut % (Auto) 58.4 Lymph % (Auto) 28.3 [place] % (Auto) 8.9 H Eos % (Auto) 3.4 Baso % (Auto) 0.5 Lymph # (Auto) 1.65 [place] # (Auto) 0.5 Eos # (Auto) 0.2 Baso # (Auto) 0.0 Abs Immat Gran (auto) 0.03 Absolute Neuts (auto) 3.4 Absolute Nucleated RBC 0.000 Nucleated RBC % 0.0 Sodium 140 Potassium 3.5 Chloride 114 H Carbon Dioxide 22 Anion Gap 4 BUN 24 H Creatinine 2.15 H Estim Creat Clear Calc 22 Estimated GFR 23 L Glucose 78 Calcium 7.0 L Phosphorus 4.2 Magnesium 1.8 Albumin 2.5 L
--- NOTE | 2024-12-18 17:42 | PM.IMPN ---
Progress Note: A&P Assessment and Plan (1) Hypertension: Code(s): I10 - Essential (primary) hypertension Status: Chronic (2) Bradycardia: Code(s): R00.1 - Bradycardia, unspecified Status: Acute (3) CKD (chronic kidney disease): Qualifiers: Chronic kidney disease stage: unspecified stage Qualified Code(s): N18.9 - Chronic kidney disease, unspecified Code(s): N18.9 - Chronic kidney disease, unspecified Status: Acute (4) Dizziness: Code(s): R42 - Dizziness and giddiness Status: Acute (5) Syncope: Qualifiers: Syncope type: unspecified Qualified Code(s): R55 - Syncope and collapse Code(s): R55 - Syncope and collapse Status: Acute Plan Dizziness is persistent, continue to appreciate Neurology recommendations. Pending EEG. Precautions, ambulate with assistance. It appears orthostatics are not being taken, orthostatics vital order have been placed again. Serum creatinine slightly above baseline, Nephrology recommendations noted. Continuing fluids at 75 cc/hour. No evidence of fluid overload. Blood pressure trend is slightly better. Continue current regimen with amlodipine 10 mg p.o. q.day, Coreg 25 mg p.o. b.i.d. with parameters, hydralazine 20 mg p.o. q.i.d., isosorbide mononitrate 120 mg p.o. q.day. if she does not have orthostatic hypotension we could be more aggressive with these blood pressure management although she is on multiples as well, appreciate nephrology assistance as well. Subjective Date/time seen: 12/18/24 17:42 Interval history: No acute overnight events. Patient complains of dizziness. Has a no complaints she has been walking around a walker without imbalance. Review of Systems Review of Systems: All systems reviewed & are unremarkable except as noted in HPI and below (Subjective) Exam Const: General: comfortable and no acute distress HENMT: Mouth: Yes moist mucous membranes Eyes: Pupils: Equal, round and reactive pupils present Other: No nystagmus Resp: Effort & Inspection: normal respiratory effort Auscultation: clear to auscultation bilaterally Cardio: Rate: bradycardic Rhythm: regular rhythm GI: GI Palp: Yes Soft to palpation and No Firmness to palpation present (GI) Neuro: Motor exam (neuro): 5/5 motor strength present throughout Extrem: General: no edema Objective Data Vital Signs Vital Signs: Vital Signs - 24 hr 12/17/24 18:15 12/17/24 18:30 12/17/24 18:45 Temperature Pulse Rate 51 L 58 L 56 L Respiratory Rate Blood Pressure Pulse Oximetry Oxygen Delivery Fraction of Inspired Oxygen 12/17/24 19:00 12/17/24 19:15 12/17/24 19:30 Temperature Pulse Rate 53 L 52 L 54 L Respiratory Rate Blood Pressure Pulse Oximetry Oxygen Delivery Fraction of Inspired Oxygen 12/17/24 19:45 12/17/24 20:00 12/17/24 20:00 Temperature Pulse Rate 53 L 51 L Respiratory Rate Blood Pressure Pulse Oximetry Oxygen Delivery Room Air Fraction of Inspired Oxygen 12/17/24 20:00 12/17/24 20:15 12/17/24 20:30 Temperature Pulse Rate 53 L 54 L 52 L Respiratory Rate Blood Pressure Pulse Oximetry Oxygen Delivery Fraction of Inspired Oxygen 12/17/24 20:45 12/17/24 21:00 12/17/24 21:15 Temperature Pulse Rate 50 L 51 L 53 L Respiratory Rate Blood Pressure Pulse Oximetry Oxygen Delivery Fraction of Inspired Oxygen 12/17/24 21:30 12/17/24 21:33 12/17/24 21:35 Temperature Pulse Rate 53 L 53 L 53 L Respiratory Rate 18 18 Blood Pressure Pulse Oximetry 94 Oxygen Delivery Room Air Fraction of Inspired Oxygen 12/17/24 21:45 12/17/24 22:00 12/17/24 22:15 Temperature 98.4 F Pulse Rate 51 L 51 L 51 L Respiratory Rate 18 Blood Pressure 150/65 H Pulse Oximetry 96 Oxygen Delivery Fraction of Inspired Oxygen 12/17/24 22:15 12/17/24 22:30 12/17/24 22:45 Temperature Pulse Rate 52 L 52 L 52 L Respiratory Rate Blood Pressure Pulse Oximetry Oxygen Delivery Fraction of Inspired Oxygen 12/17/24 23:00 12/17/24 23:15 12/17/24 23:30 Temperature Pulse Rate 56 L 55 L 54 L Respiratory Rate Blood Pressure Pulse Oximetry Oxygen Delivery Fraction of Inspired Oxygen 12/17/24 23:45 12/18/24 00:00 12/18/24 00:00 Temperature Pulse Rate 67 56 L 66 Respiratory Rate Blood Pressure Pulse Oximetry Oxygen Delivery Fraction of Inspired Oxygen 12/18/24 00:15 12/18/24 00:24 12/18/24 00:30 Temperature Pulse Rate 53 L 55 L 51 L Respiratory Rate 18 Blood Pressure 163/72 H Pulse Oximetry 100 Oxygen Delivery Fraction of Inspired Oxygen 12/18/24 00:45 12/18/24 01:00 12/18/24 01:15 Temperature Pulse Rate 49 L 51 L 50 L Respiratory Rate Blood Pressure Pulse Oximetry Oxygen Delivery Fraction of Inspired Oxygen 12/18/24 01:30 12/18/24 01:47 12/18/24 02:01 Temperature Pulse Rate 48 L 49 L 49 L Respiratory Rate Blood Pressure Pulse Oximetry Oxygen Delivery Fraction of Inspired Oxygen 12/18/24 02:15 12/18/24 02:30 12/18/24 02:45 Temperature Pulse Rate 51 L 51 L 50 L Respiratory Rate Blood Pressure Pulse Oximetry Oxygen Delivery Fraction of Inspired Oxygen 12/18/24 03:00 12/18/24 03:15 12/18/24 03:30 Temperature Pulse Rate 49 L 48 L 49 L Respiratory Rate Blood Pressure Pulse Oximetry Oxygen Delivery Fraction of Inspired Oxygen 12/18/24 03:45 12/18/24 04:00 12/18/24 04:00 Temperature Pulse Rate 49 L 53 L 52 L Respiratory Rate Blood Pressure Pulse Oximetry Oxygen Delivery Fraction of Inspired Oxygen 12/18/24 04:15 12/18/24 04:30 12/18/24 04:45 Temperature Pulse Rate 52 L 50 L 50 L Respiratory Rate Blood Pressure Pulse Oximetry Oxygen Delivery Fraction of Inspired Oxygen 12/18/24 05:00 12/18/24 05:15 12/18/24 05:30 Temperature Pulse Rate 49 L 54 L 50 L Respiratory Rate Blood Pressure Pulse Oximetry Oxygen Delivery Fraction of Inspired Oxygen 12/18/24 05:45 12/18/24 06:02 12/18/24 06:15 Temperature Pulse Rate 50 L 54 L 50 L Respiratory Rate Blood Pressure Pulse Oximetry Oxygen Delivery Fraction of Inspired Oxygen 12/18/24 06:30 12/18/24 06:33 12/18/24 08:00 Temperature 97.7 F Pulse Rate 52 L 51 L Respiratory Rate 18 Blood Pressure 163/72 H Pulse Oximetry 100 Oxygen Delivery Room Air Fraction of Inspired Oxygen 12/18/24 08:00 12/18/24 08:34 12/18/24 08:36 Temperature Pulse Rate 54 L Respiratory Rate 18 18 Blood Pressure Pulse Oximetry 95 Oxygen Delivery Room Air Fraction of Inspired Oxygen 12/18/24 09:24 12/18/24 12:00 12/18/24 14:14 Temperature Pulse Rate 51 L 53 L 54 L Respiratory Rate 16 Blood Pressure Pulse Oximetry Oxygen Delivery Fraction of Inspired Oxygen 12/18/24 14:20 Temperature Pulse Rate 51 L Respiratory Rate 16 Blood Pressure Pulse Oximetry Oxygen Delivery Fraction of Inspired Oxygen Intake/Output Intake/Output: Intake & Output 12/15/24 12/16/24 12/17/24 12/18/24 23:59 23:59 23:59 23:59 Intake Total 3920 3260 1600 1737.5 Output Total 900 2350 2400 Balance 3020 910 -800 1737.5 Meds/Results Medications: Active Medications Generic Name Dose Route Start Last Admin Trade Name Freq PRN Reason Stop Dose Admin Acetaminophen 500 mg 12/14/24 00:15 12/17/24 17:12 Acetaminophen 500 Mg Tablet PO 500 mg Q6H PRN Administration Headache Hydrocodone Bitart/Acetaminophen 1 tab 12/14/24 00:15 12/18/24 17:19 Hydrocodone/Acetaminophen (*Crx) 10-325 Mg Tablet PO 1 tab Q6H PRN Administration Pain Albuterol 2 puff 12/14/24 00:15 Albuterol Sulfate (*Sp) Aerosol 1 Puff INHALATION Q4HRT PRN Shortness Of Breath Albuterol 2.5 mg 12/14/24 02:00 12/18/24 14:13 Albuterol Sulfate Neb 2.5 Mg/3 Ml Inh INHALATION 2.5 mg Q6HRT LORENZO Administration Amantadine HCl 100 mg 12/14/24 00:15 12/17/24 21:16 Amantadine Hcl 100 Mg Capsule PO 100 mg QHS LORENZO Administration Amlodipine Besylate 10 mg 12/14/24 09:00 12/18/24 09:26 Amlodipine Besylate 10 Mg Tablet PO 10 mg DAILY LORENZO Administration Aspirin 81 mg 12/14/24 09:00 12/18/24 09:26 Aspirin 81 Mg Enteric Tablet PO 81 mg DAILY LORENZO Administration Atorvastatin Calcium 80 mg 12/14/24 21:00 12/17/24 21:16 Atorvastatin 40 Mg Tablet PO 80 mg QHS LORENZO Administration Carvedilol 25 mg 12/14/24 22:21 12/18/24 09:24 Carvedilol 25 Mg Tablet PO 25 mg Q12HR LORENZO Administration Heparin Sodium (Porcine) 5,000 units 12/14/24 09:00 12/18/24 09:25 Heparin Sodium 5,000 Units/Ml Vial SUB-Q 5,000 units Q12HR LORENZO Administration Hydralazine HCl 10 mg 12/13/24 22:13 12/17/24 06:21 Hydralazine Hcl 20 Mg/Ml Vial IV PUSH 10 mg Q4H PRN Administration Blood Pressure - High Hydralazine HCl 20 mg 12/16/24 17:00 12/18/24 16:21 Hydralazine 10 Mg Tablet PO 20 mg QID LORENZO Administration Sodium Chloride 1,000 mls @ 75 mls/hr 12/13/24 20:50 12/18/24 03:36 Normal Saline Iv IV CONT 75 mls/hr .[id number] LORENZO Administration Isosorbide Mononitrate 120 mg 12/14/24 09:00 12/18/24 09:25 Isosorbide Mononitrate 60 Mg Tab.Er.24h PO 120 mg DAILY LORENZO Administration Meclizine HCl 25 mg 12/14/24 16:40 12/18/24 09:24 Meclizine Hcl 25 Mg Tablet BY MOUTH 25 mg BID PRN Administration Dizziness Non-Formulary Medication 80 mg 12/16/24 09:00 12/18/24 09:26 Valbenazine [Ingrezza] PO 01/15/25 08:59 80 mg DAILY LORENZO Administration Ondansetron HCl 4 mg 12/14/24 09:05 Ondansetron Inj 4 Mg/2 Ml Vial IV PUSH Q6H PRN Nausea And Vomiting Pantoprazole Sodium 40 mg 12/14/24 09:00 12/18/24 09:24 Pantoprazole Sodium Iv 40 Mg Vial IV PUSH 40 mg QAM LORENZO Administration Polyethylene Glycol 17 gm 12/14/24 09:05 Polyethylene Glycol 3350 17 Gm Powd.Pack PO QAM PRN Constipation Ropinirole HCl 0.25 mg 12/14/24 00:20 12/17/24 21:18 Ropinirole Hcl 0.25 Mg Tablet PO 0.25 mg HS LORENZO Administration Sertraline HCl 150 mg 12/14/24 09:00 12/18/24 09:25 Sertraline Hcl 50 Mg Tablet PO 150 mg DAILY LORENZO Administration Sodium Bicarbonate 650 mg 12/14/24 09:00 12/18/24 16:21 Sodium Bicarbonate Tab 650 Mg Tablet PO 650 mg BID LORENZO Administration Topiramate 50 mg 12/14/24 00:15 12/18/24 09:26 Topiramate 25 Mg Tablet PO 50 mg Q12HR LORENZO Administration Trazodone HCl 100 mg 12/14/24 00:20 12/17/24 22:53 Trazodone Hcl 50 Mg Tablet PO 100 mg QHS PRN Administration Sleep Umeclidinium/Vilanterol 1 puff 12/14/24 08:00 12/18/24 08:34 Umeclidinium/Vilanterol 62.5-25 Mcg Ellipta INHALATION 1 puff DAILYRT LORENZO Administration Valsartan 320 mg 12/14/24 09:00 12/18/24 09:26 Valsartan 160 Mg Tablet BY MOUTH 320 mg DAILY LORENZO Administration Vitamin D 25 mcg 12/14/24 09:00 12/18/24 09:26 Cholecalciferol (Vitamin D3) 25 Mcg (1,000 Units) Tablet PO 25 mcg DAILY LORENZO Administration Radiology Results: ITS Impressions Chest X-Ray 12/13/24 17:44 Impression: 1: No acute cardiopulmonary disease. Knee X-Ray 12/13/24 17:48 Impression: 1: No acute bone or joint abnormality. Head CT 12/13/24 18:09 IMPRESSION: 1. No acute intracranial abnormality. Head/Cervical Spine/Facial Bones CT 12/13/24 18:11 IMPRESSION: 1. No acute abnormality of the facial bones or cervical spine. 2: Progression of severe cervical spondylosis with fusion at C5-7. Carotid Doppler Study 12/14/24 11:51 IMPRESSION: 1. Less than 50% stenosis in the right internal carotid artery by sonographic criteria. 2. Less than 50% stenosis in the left internal carotid artery by sonographic criteria. Renal Ultrasound 12/15/24 19:32 Impression: 1: Bilateral echogenic foci of the kidneys consistent with nonobstructing renal stones. Labs Labs: Laboratory Results - last 24 hr 12/18/24 05:55 WBC 5.8 RBC 3.16 L Hgb 9.5 L Hct 32.3 L MCV 102.2 H D MCH 30.1 MCHC 29.4 L RDW 13.9 Plt Count 132 L MPV 11.3 H Immature Gran % (Auto) 0.5 Neut % (Auto) 58.4 Lymph % (Auto) 28.3 [place] % (Auto) 8.9 H Eos % (Auto) 3.4 Baso % (Auto) 0.5 Lymph # (Auto) 1.65 [place] # (Auto) 0.5 Eos # (Auto) 0.2 Baso # (Auto) 0.0 Abs Immat Gran (auto) 0.03 Absolute Neuts (auto) 3.4 Absolute Nucleated RBC 0.000 Nucleated RBC % 0.0 Sodium 140 Potassium 3.5 Chloride 114 H Carbon Dioxide 22 Anion Gap 4 BUN 24 H Creatinine 2.15 H Estim Creat Clear Calc 22 Estimated GFR 23 L Glucose 78 Calcium 7.0 L Phosphorus 4.2 Magnesium 1.8 Albumin 2.5 L
[2024-12-18] MEDS: AMANTADINE HCL 100 MG CAPSULE PO (21:11)
[2024-12-18] MEDS: ATORVASTATIN 40 MG TABLET 80 MG PO (21:13)
[2024-12-18] MEDS: ACETAMINOPHEN 500 MG TABLET PO (21:26)
[2024-12-19] VITALS (16 sets, daily range): BP systolic 137–179; BP diastolic 62–78; PULSE 51–61; RESP 16–18; TEMP 36.3–36.7; O2SAT 95–99
[2024-12-19 05:48] LABS: Hematocrit 33.2 % (37.0-47.0); Hemoglobin 10.2 g/dL (12.0-15.0); Immature Granulocyte Percent A 0.4 % (0-0.5); Lymphocytes Absolute Auto 1.89 K/mm3 (0.9-3.2); Mean Corpuscular HGB Conc 30.7 g/dl (32-36); Mean Corpuscular Hemoglobin 29.9 pg (26-34); Mean Corpuscular Volume 97.4 fl (80-100); Nucleated Red Blood Cells Absolute Auto 0.000 K/mm3 (0.0-0.012); Nucleated Red Blood Cells Perc 0.0 % (0.0-0.2); Platelet Count Result 149 k/mm3 (150-375); Red Blood Count 3.41 M/mm3 (4.2-5.4); White Blood Count 7.7 K/mm3 (4.5-10.0)
[2024-12-19 06:05] LABS: Albumin Level 2.9 g/dL (3.5-5.1); Anion Gap 6 mmol/L (4-12); Blood Urea Nitrogen 23 mg/dL (7-17); Calcium 7.7 mg/dL (8.4-10.2); Carbon Dioxide 23 mmol/L (22-30); Chloride 113 mmol/L (98-107); Estimated CRCL calculation 22 ml/min; Estimated Glomerular Filt Rate 23; Glucose 99 mg/dL (65-110); Magnesium 1.8 mg/dL (1.6-2.3); Potassium 3.9 mmol/L (3.4-5.0); Sodium 142 mmol/L (137-145)
[2024-12-19] MEDS: HYDROcodone/acetaminophen (*CRX) 10-325 MG TABLET 1 TAB PO ×3 (06:42→18:45)
[2024-12-19] MEDS: ALBUTEROL SULFATE NEB 2.5 MG/3 ML INH INHALATION ×2 (08:32→20:16)
[2024-12-19] MEDS: UMECLIDINIUM/VILANTEROL 62.5-25 MCG ELLIPTA 1 PUFF INHALATION (08:32)
[2024-12-19] MEDS: SODIUM BICARBONATE TAB 650 MG TABLET PO ×2 (09:23→17:30)
[2024-12-19] MEDS: SERTRALINE HCL 50 MG TABLET 150 MG PO (09:23)
[2024-12-19] MEDS: ASPIRIN 81 MG ENTERIC TABLET PO (09:23)
[2024-12-19] MEDS: TOPIRAMATE 25 MG TABLET 50 MG PO ×2 (09:24→21:20)
[2024-12-19] MEDS: ISOSORBIDE MONONITRATE 60 MG TAB.ER.24H 120 MG PO (09:24)
[2024-12-19] MEDS: VALSARTAN 160 MG TABLET 320 MG BY MOUTH (09:24)
[2024-12-19] MEDS: CHOLECALCIFEROL (VITAMIN D3) 25 MCG (1,000 UNITS) TABLET PO (09:24)
[2024-12-19] MEDS: PANTOPRAZOLE SODIUM IV 40 MG VIAL IV PUSH (09:25)
[2024-12-19] MEDS: VALBENAZINE 80 MG PO (09:26)
[2024-12-19] MEDS: [UNRECOGNIZED DRUG - OTHER] PO (09:26)
[2024-12-19] MEDS: MECLIZINE HCL 25 MG TABLET BY MOUTH (09:32)
--- NOTE | 2024-12-19 12:06 | P.PNNP_ITS ---
Progress Note: A&P Assessment and Plan (1) Acute kidney injury: Code(s): N17.9 - Acute kidney failure, unspecified Status: Acute Assessment and Plan: * as noted by admission labs (creatinine of 2.3mg/dL) * fluctuating since admission * due to bradycardia versus transient hypotension (leading to syncope) versus other (CKD progression)? * see #2 * evaluation to date noted * renal ultrasound w/o obstruction * urine electrolytes pre-renal * urine eosinophils negative * CPK normal * nephrotic range proteinuria * possible new baseline creatinine (?) -- see #2 * follow trend of repeat labs and UOP (2) Stage 3b chronic kidney disease: Code(s): N18.32 - Chronic kidney disease, stage 3b Status: Chronic Assessment and Plan: * creatinine 1.87mg/dL in July 2024 * running 1.2 - 1.8mg/dL since 2020 * some of these fluctuations are associated with acute hospitalizations * she may have a component of CKD progression... 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 Menendez ([facility] Nephrology) for management of CKD (3) Syncope: Qualifiers: Syncope type: unspecified Qualified Code(s): R55 - Syncope and collapse Code(s): R55 - Syncope and collapse Status: Acute Assessment and Plan: * noted by admission history: * fall to knees with head strike 2 days prior to presentation * another episode on the day of admission * follow telemetry * Echo noted: * left ventricular systolic function is normal, estimated at 60-65% * left ventricular diastolic function is grade I diastolic dysfunction * moderate aortic valve sclerosis * no pulmonary hypertension, estimated pulmonary arterial systolic pressure is 20 mmHg * BP control * fall precautions * PT/OT as tolerated (4) Bradycardia: Code(s): R00.1 - Bradycardia, unspecified Status: Acute Assessment and Plan: * noted on presentation * carvedilol with parameters * Cardiology recommendations noted (5) Hypertension: Code(s): I10 - Essential (primary) hypertension Status: Chronic Assessment and Plan: * elevated on presentation as well (170s - 190s systolic) * resume home medications * oral hydralazine on board * PRN IV medications * follow trend of hemodynamics (6) Chronic obstructive pulmonary disease, unspecified: Qualifiers: COPD type: unspecified COPD Qualified Code(s): J44.9 - Chronic obstructive pulmonary disease, unspecified Code(s): J44.9 - Chronic obstructive pulmonary disease, unspecified Status: Chronic Assessment and Plan: * known history * follows with Pulmonary at [facility] * no evidence of exacerbation * continue home inhalers Not much more to add -- will continue to follow intermittently. L Subjective Date/time seen: 12/19/24 12:06 Interval history: Follow-up for acute kidney injury/acute renal failure on chronic kidney disease. Chart reviewed since last seen -- renal function/creatinine relatively stable since admission; BP still fluctuating but better control in general on current medication regimen; no apparent distress noted at the time of my visit. Exam 2 Narrative: General: elderly but WD/WN female in NAD Heart: normal S1 and S2; no rub Lungs: coarse breath sounds Abdomen: soft, nontender, nondistended, positive bowel sounds Extremities: no cyanosis or clubbing; no edema Skin: warm and intact Objective Data Vital Signs Vital Signs: Vital Signs Temp Pulse Resp BP Pulse Ox O2 Del Method FiO2 12/19/24 12:00 51 L 12/19/24 09:25 53 L 12/19/24 09:23 Room Air 12/19/24 08:42 56 L 16 12/19/24 08:32 55 L 16 12/19/24 08:32 98 Room Air 12/19/24 08:00 54 L 12/19/24 06:00 98.0 F 55 L 18 162/78 H 98 12/19/24 04:00 51 L 12/19/24 00:00 53 L 12/18/24 22:00 98.1 F 56 L 16 145/67 H 95 12/18/24 21:28 56 L 12/18/24 20:05 53 L 12/18/24 20:01 Autopap 12/18/24 20:00 Room Air 12/18/24 19:53 54 L 16 12/18/24 19:46 53 L 16 92 Room Air 21 12/18/24 19:46 53 L 16 Intake/Output Intake/Output: Intake & Output 12/16/24 12/17/24 12/18/24 12/19/24 23:59 23:59 23:59 23:59 Intake Total 3260 1600 5067.5 2200 Output Total 2350 2400 1000 2100 Balance 910 -800 4067.5 100 Meds/Results Medications: Active Medications Generic Name Dose Route Start Last Admin Trade Name Freq PRN Reason Stop Dose Admin Acetaminophen 500 mg 12/14/24 00:15 12/18/24 21:26 Acetaminophen 500 Mg Tablet PO 500 mg Q6H PRN Administration Headache Hydrocodone Bitart/Acetaminophen 1 tab 12/14/24 00:15 12/19/24 18:45 Hydrocodone/Acetaminophen (*Crx) 10-325 Mg Tablet PO 1 tab Q6H PRN Administration Pain Albuterol 2 puff 12/14/24 00:15 Albuterol Sulfate (*Sp) Aerosol 1 Puff INHALATION Q4HRT PRN Shortness Of Breath Albuterol 2.5 mg 12/19/24 20:00 Albuterol Sulfate Neb 2.5 Mg/3 Ml Inh INHALATION Q12HRT [facility] Amantadine HCl 100 mg 12/14/24 00:15 12/18/24 21:11 Amantadine Hcl 100 Mg Capsule PO 100 mg QHS LORENZO Administration Amlodipine Besylate 10 mg 12/14/24 09:00 12/19/24 09:24 Amlodipine Besylate 10 Mg Tablet PO 10 mg DAILY LORENZO Administration Aspirin 81 mg 12/14/24 09:00 12/19/24 09:23 Aspirin 81 Mg Enteric Tablet PO 81 mg DAILY LORENZO Administration Atorvastatin Calcium 80 mg 12/14/24 21:00 12/18/24 21:13 Atorvastatin 40 Mg Tablet PO 80 mg QHS LORENZO Administration Carvedilol 12.5 mg 12/19/24 09:00 12/19/24 09:25 Carvedilol 12.5 Mg Tablet PO 12.5 mg Q12HR LORENZO Administration Heparin Sodium (Porcine) 5,000 units 12/14/24 09:00 12/19/24 09:25 Heparin Sodium 5,000 Units/Ml Vial SUB-Q 5,000 units Q12HR LORENZO Administration Hydralazine HCl 10 mg 12/13/24 22:13 12/17/24 06:21 Hydralazine Hcl 20 Mg/Ml Vial IV PUSH 10 mg Q4H PRN Administration Blood Pressure - High Hydralazine HCl 20 mg 12/16/24 17:00 12/19/24 17:30 Hydralazine 10 Mg Tablet PO 20 mg QID LORENZO Administration Sodium Chloride 1,000 mls @ 75 mls/hr 12/13/24 20:50 12/19/24 13:28 Normal Saline Iv IV CONT 75 mls/hr .[id number] LORENZO Administration Isosorbide Mononitrate 120 mg 12/14/24 09:00 12/19/24 09:24 Isosorbide Mononitrate 60 Mg Tab.Er.24h PO 120 mg DAILY LORENZO Administration Meclizine HCl 25 mg 12/14/24 16:40 12/19/24 09:32 Meclizine Hcl 25 Mg Tablet BY MOUTH 25 mg BID PRN Administration Dizziness Non-Formulary Medication 80 mg 12/16/24 09:00 12/19/24 09:26 Valbenazine [Ingrezza] PO 01/15/25 08:59 80 mg DAILY LORENZO Administration Ondansetron HCl 4 mg 12/14/24 09:05 Ondansetron Inj 4 Mg/2 Ml Vial IV PUSH Q6H PRN Nausea And Vomiting Pantoprazole Sodium 40 mg 12/14/24 09:00 12/19/24 09:25 Pantoprazole Sodium Iv 40 Mg Vial IV PUSH 40 mg QAM LORENZO Administration Polyethylene Glycol 17 gm 12/14/24 09:05 Polyethylene Glycol 3350 17 Gm Powd.Pack PO QAM PRN Constipation Ropinirole HCl 0.25 mg 12/14/24 00:20 12/18/24 21:12 Ropinirole Hcl 0.25 Mg Tablet PO 0.25 mg HS LORENZO Administration Sertraline HCl 150 mg 12/14/24 09:00 12/19/24 09:23 Sertraline Hcl 50 Mg Tablet PO 150 mg DAILY LORENZO Administration Sodium Bicarbonate 650 mg 12/14/24 09:00 12/19/24 17:30 Sodium Bicarbonate Tab 650 Mg Tablet PO 650 mg BID LORENZO Administration Topiramate 50 mg 12/14/24 00:15 12/19/24 09:24 Topiramate 25 Mg Tablet PO 50 mg Q12HR LORENZO Administration Trazodone HCl 100 mg 12/14/24 00:20 12/18/24 23:14 Trazodone Hcl 50 Mg Tablet PO 100 mg QHS PRN Administration Sleep Umeclidinium/Vilanterol 1 puff 12/14/24 08:00 12/19/24 08:32 Umeclidinium/Vilanterol 62.5-25 Mcg Ellipta INHALATION 1 puff DAILYRT LORENZO Administration Valsartan 320 mg 12/14/24 09:00 12/19/24 09:24 Valsartan 160 Mg Tablet BY MOUTH 320 mg DAILY LORENZO Administration Vitamin D 25 mcg 12/14/24 09:00 12/19/24 09:24 Cholecalciferol (Vitamin D3) 25 Mcg (1,000 Units) Tablet PO 25 mcg DAILY LORENZO Administration Radiology Results: ITS Impressions Chest X-Ray 12/13/24 17:44 Impression: 1: No acute cardiopulmonary disease. Knee X-Ray 12/13/24 17:48 Impression: 1: No acute bone or joint abnormality. Head CT 12/13/24 18:09 IMPRESSION: 1. No acute intracranial abnormality. Head/Cervical Spine/Facial Bones CT 12/13/24 18:11 IMPRESSION: 1. No acute abnormality of the facial bones or cervical spine. 2: Progression of severe cervical spondylosis with fusion at C5-7. Carotid Doppler Study 12/14/24 11:51 IMPRESSION: 1. Less than 50% stenosis in the right internal carotid artery by sonographic criteria. 2. Less than 50% stenosis in the left internal carotid artery by sonographic criteria. Renal Ultrasound 12/15/24 19:32 Impression: 1: Bilateral echogenic foci of the kidneys consistent with nonobstructing renal stones. Labs Labs: Laboratory Tests 12/19/24 05:35 12/19/24 05:35 Calcium 7.7 L Phosphorus 4.1 Magnesium 1.8 Albumin 2.9 L
[2024-12-19] MEDS: SODIUM CHLORIDE 0.9% IV 1,000 ML 75 ML IV CONT (13:28)
[2024-12-19] MEDS: AMANTADINE HCL 100 MG CAPSULE PO (21:18)
[2024-12-19] MEDS: ATORVASTATIN 40 MG TABLET 80 MG PO (21:19)
[2024-12-20] VITALS (10 sets, daily range): BP systolic 151–174; BP diastolic 71–80; PULSE 49–54; RESP 16–20; TEMP 36.9; O2SAT 100
--- NOTE | 2024-12-20 00:18 | P.PNIM_ITS ---
Progress Note: A&P Assessment and Plan (1) Dizziness: Code(s): R42 - Dizziness and giddiness Status: Acute Plan sinus bradycardia is persistent, although asymptomatic. decrease coreg to 12.5mg po bid. cont PT/OT. pending EEG, hopefully discharge tomorrow, will speak with neurology Subjective Date/time seen: 12/20/24 00:18 Interval history: NAOE. reports her usual dizziness. EEG performed recently Review of Systems Review of Systems: All systems reviewed & are unremarkable except as noted in HPI and below (subjective) Exam Const: General: comfortable and no acute distress HENMT: Mouth: Yes moist mucous membranes Eyes: Pupils: Equal, round and reactive pupils present Other: No nystagmus Resp: Effort & Inspection: normal respiratory effort Auscultation: clear to auscultation bilaterally Cardio: Rate: bradycardic Rhythm: regular rhythm GI: GI Palp: Yes Soft to palpation and No Firmness to palpation present (GI) Neuro: Motor exam (neuro): 5/5 motor strength present throughout Extrem: General: no edema Objective Data Vital Signs Vital Signs: Vital Signs - 24 hr 12/19/24 04:00 12/19/24 06:00 12/19/24 08:00 Temperature 98.0 F Pulse Rate 51 L 55 L 54 L Respiratory Rate 18 Blood Pressure 162/78 H Pulse Oximetry 98 Oxygen Delivery 12/19/24 08:32 12/19/24 08:32 12/19/24 08:42 Temperature Pulse Rate 55 L 56 L Respiratory Rate 16 16 Blood Pressure Pulse Oximetry 98 Oxygen Delivery Room Air 12/19/24 09:23 12/19/24 09:25 12/19/24 12:00 Temperature Pulse Rate 53 L 51 L Respiratory Rate Blood Pressure Pulse Oximetry Oxygen Delivery Room Air 12/19/24 14:00 12/19/24 14:00 12/19/24 14:01 Temperature 97.3 F L Pulse Rate 53 L 53 L 52 L Respiratory Rate 18 Blood Pressure 137/62 137/62 145/62 H Pulse Oximetry 99 Oxygen Delivery 12/19/24 14:01 12/19/24 16:00 12/19/24 20:19 Temperature Pulse Rate 53 L 61 61 Respiratory Rate 16 Blood Pressure 145/62 H Pulse Oximetry Oxygen Delivery 12/19/24 20:25 12/19/24 21:18 12/19/24 21:47 Temperature 97.8 F Pulse Rate 60 56 L 56 L Respiratory Rate 16 16 Blood Pressure 179/70 H Pulse Oximetry 95 Oxygen Delivery 12/19/24 22:52 Temperature Pulse Rate Respiratory Rate Blood Pressure Pulse Oximetry Oxygen Delivery Autopap Intake/Output Intake/Output: Intake & Output 12/17/24 12/18/24 12/19/24 12/20/24 23:59 23:59 23:59 23:59 Intake Total 1600 5067.5 2200 Output Total 2400 1000 2400 Balance -800 4067.5 -200 Meds/Results Medications: Active Medications Generic Name Dose Route Start Last Admin Trade Name Freq PRN Reason Stop Dose Admin Acetaminophen 500 mg 12/14/24 00:15 12/18/24 21:26 Acetaminophen 500 Mg Tablet PO 500 mg Q6H PRN Administration Headache Hydrocodone Bitart/Acetaminophen 1 tab 12/14/24 00:15 12/19/24 18:45 Hydrocodone/Acetaminophen (*Crx) 10-325 Mg Tablet PO 1 tab Q6H PRN Administration Pain Albuterol 2 puff 12/14/24 00:15 Albuterol Sulfate (*Sp) Aerosol 1 Puff INHALATION Q4HRT PRN Shortness Of Breath Albuterol 2.5 mg 12/19/24 20:00 12/19/24 20:16 Albuterol Sulfate Neb 2.5 Mg/3 Ml Inh INHALATION 2.5 mg Q12HRT LORENZO Administration Amantadine HCl 100 mg 12/14/24 00:15 12/19/24 21:18 Amantadine Hcl 100 Mg Capsule PO 100 mg QHS LORENZO Administration Amlodipine Besylate 10 mg 12/14/24 09:00 12/19/24 09:24 Amlodipine Besylate 10 Mg Tablet PO 10 mg DAILY LORENZO Administration Aspirin 81 mg 12/14/24 09:00 12/19/24 09:23 Aspirin 81 Mg Enteric Tablet PO 81 mg DAILY LORENZO Administration Atorvastatin Calcium 80 mg 12/14/24 21:00 12/19/24 21:19 Atorvastatin 40 Mg Tablet PO 80 mg QHS LORENZO Administration Carvedilol 12.5 mg 12/19/24 09:00 12/19/24 21:18 Carvedilol 12.5 Mg Tablet PO 12.5 mg Q12HR LORENZO Administration Heparin Sodium (Porcine) 5,000 units 12/14/24 09:00 12/19/24 21:19 Heparin Sodium 5,000 Units/Ml Vial SUB-Q 5,000 units Q12HR LORENZO Administration Hydralazine HCl 10 mg 12/13/24 22:13 12/17/24 06:21 Hydralazine Hcl 20 Mg/Ml Vial IV PUSH 10 mg Q4H PRN Administration Blood Pressure - High Hydralazine HCl 20 mg 12/16/24 17:00 12/19/24 21:20 Hydralazine 10 Mg Tablet PO 20 mg QID LORENZO Administration Sodium Chloride 1,000 mls @ 75 mls/hr 12/13/24 20:50 12/19/24 13:28 Normal Saline Iv IV CONT 75 mls/hr .[id number] LORENZO Administration Isosorbide Mononitrate 120 mg 12/14/24 09:00 12/19/24 09:24 Isosorbide Mononitrate 60 Mg Tab.Er.24h PO 120 mg DAILY LORENZO Administration Meclizine HCl 25 mg 12/14/24 16:40 12/19/24 09:32 Meclizine Hcl 25 Mg Tablet BY MOUTH 25 mg BID PRN Administration Dizziness Non-Formulary Medication 80 mg 12/16/24 09:00 12/19/24 09:26 Valbenazine [Ingrezza] PO 01/15/25 08:59 80 mg DAILY LORENZO Administration Ondansetron HCl 4 mg 12/14/24 09:05 Ondansetron Inj 4 Mg/2 Ml Vial IV PUSH Q6H PRN Nausea And Vomiting Pantoprazole Sodium 40 mg 12/14/24 09:00 12/19/24 09:25 Pantoprazole Sodium Iv 40 Mg Vial IV PUSH 40 mg QAM LORENZO Administration Polyethylene Glycol 17 gm 12/14/24 09:05 Polyethylene Glycol 3350 17 Gm Powd.Pack PO QAM PRN Constipation Ropinirole HCl 0.25 mg 12/14/24 00:20 12/19/24 21:20 Ropinirole Hcl 0.25 Mg Tablet PO 0.25 mg HS LORENZO Administration Sertraline HCl 150 mg 12/14/24 09:00 12/19/24 09:23 Sertraline Hcl 50 Mg Tablet PO 150 mg DAILY LORENZO Administration Sodium Bicarbonate 650 mg 12/14/24 09:00 12/19/24 17:30 Sodium Bicarbonate Tab 650 Mg Tablet PO 650 mg BID LORENZO Administration Topiramate 50 mg 12/14/24 00:15 12/19/24 21:20 Topiramate 25 Mg Tablet PO 50 mg Q12HR LORENZO Administration Trazodone HCl 100 mg 12/14/24 00:20 12/19/24 22:14 Trazodone Hcl 50 Mg Tablet PO 100 mg QHS PRN Administration Sleep Umeclidinium/Vilanterol 1 puff 12/14/24 08:00 12/19/24 08:32 Umeclidinium/Vilanterol 62.5-25 Mcg Ellipta INHALATION 1 puff DAILYRT LORENZO Administration Valsartan 320 mg 12/14/24 09:00 12/19/24 09:24 Valsartan 160 Mg Tablet BY MOUTH 320 mg DAILY LORENZO Administration Vitamin D 25 mcg 12/14/24 09:00 12/19/24 09:24 Cholecalciferol (Vitamin D3) 25 Mcg (1,000 Units) Tablet PO 25 mcg DAILY LORENZO Administration Radiology Results: ITS Impressions Chest X-Ray 12/13/24 17:44 Impression: 1: No acute cardiopulmonary disease. Knee X-Ray 12/13/24 17:48 Impression: 1: No acute bone or joint abnormality. Head CT 12/13/24 18:09 IMPRESSION: 1. No acute intracranial abnormality. Head/Cervical Spine/Facial Bones CT 12/13/24 18:11 IMPRESSION: 1. No acute abnormality of the facial bones or cervical spine. 2: Progression of severe cervical spondylosis with fusion at C5-7. Carotid Doppler Study 12/14/24 11:51 IMPRESSION: 1. Less than 50% stenosis in the right internal carotid artery by sonographic criteria. 2. Less than 50% stenosis in the left internal carotid artery by sonographic criteria. Renal Ultrasound 12/15/24 19:32 Impression: 1: Bilateral echogenic foci of the kidneys consistent with nonobstructing renal stones. Labs Labs: Laboratory Results - last 24 hr 12/19/24 05:35 WBC 7.7 RBC 3.41 L Hgb 10.2 L Hct 33.2 L MCV 97.4 MCH 29.9 MCHC 30.7 L RDW 13.8 Plt Count 149 L MPV 10.9 H Immature Gran % (Auto) 0.4 Neut % (Auto) 62.1 Lymph % (Auto) 24.6 [place] % (Auto) 8.6 H Eos % (Auto) 4.0 Baso % (Auto) 0.3 Lymph # (Auto) 1.89 [place] # (Auto) 0.7 H Eos # (Auto) 0.3 Baso # (Auto) 0.0 Abs Immat Gran (auto) 0.03 Absolute Neuts (auto) 4.8 Absolute Nucleated RBC 0.000 Nucleated RBC % 0.0 Sodium 142 Potassium 3.9 Chloride 113 H Carbon Dioxide 23 Anion Gap 6 BUN 23 H Creatinine 2.16 H Estim Creat Clear Calc 22 Estimated GFR 23 L Glucose 99 Calcium 7.7 L Phosphorus 4.1 Magnesium 1.8 Albumin 2.9 L
[2024-12-20] MEDS: HYDROcodone/acetaminophen (*CRX) 10-325 MG TABLET 1 TAB PO ×3 (01:44→13:09)
[2024-12-20 05:52] LABS: Hematocrit 35.0 % (37.0-47.0); Hemoglobin 10.7 g/dL (12.0-15.0); Immature Granulocyte Percent A 0.4 % (0-0.5); Lymphocytes Absolute Auto 2.00 K/mm3 (0.9-3.2); Mean Corpuscular HGB Conc 30.6 g/dl (32-36); Mean Corpuscular Hemoglobin 29.9 pg (26-34); Mean Corpuscular Volume 97.8 fl (80-100); Nucleated Red Blood Cells Absolute Auto 0.000 K/mm3 (0.0-0.012); Nucleated Red Blood Cells Perc 0.0 % (0.0-0.2); Platelet Count Result 162 k/mm3 (150-375); Red Blood Count 3.58 M/mm3 (4.2-5.4); White Blood Count 7.9 K/mm3 (4.5-10.0)
[2024-12-20 06:10] LABS: Albumin Level 3.2 g/dL (3.5-5.1); Anion Gap 4 mmol/L (4-12); Blood Urea Nitrogen 24 mg/dL (7-17); Calcium 8.2 mg/dL (8.4-10.2); Carbon Dioxide 23 mmol/L (22-30); Chloride 113 mmol/L (98-107); Estimated CRCL calculation 23 ml/min; Estimated Glomerular Filt Rate 24; Glucose 88 mg/dL (65-110); Magnesium 1.9 mg/dL (1.6-2.3); Potassium 3.7 mmol/L (3.4-5.0); Sodium 140 mmol/L (137-145)
[2024-12-20] MEDS: ALBUTEROL SULFATE NEB 2.5 MG/3 ML INH INHALATION (07:57)
[2024-12-20] MEDS: ISOSORBIDE MONONITRATE 60 MG TAB.ER.24H 120 MG PO (08:41)
[2024-12-20] MEDS: SODIUM BICARBONATE TAB 650 MG TABLET PO (08:41)
[2024-12-20] MEDS: TOPIRAMATE 25 MG TABLET 50 MG PO (08:42)
[2024-12-20] MEDS: ASPIRIN 81 MG ENTERIC TABLET PO (08:42)
[2024-12-20] MEDS: VALSARTAN 160 MG TABLET 320 MG BY MOUTH (08:42)
[2024-12-20] MEDS: SERTRALINE HCL 50 MG TABLET 150 MG PO (08:42)
[2024-12-20] MEDS: MECLIZINE HCL 25 MG TABLET BY MOUTH (08:42)
[2024-12-20] MEDS: CHOLECALCIFEROL (VITAMIN D3) 25 MCG (1,000 UNITS) TABLET PO (08:43)
[2024-12-20] MEDS: PANTOPRAZOLE SODIUM IV 40 MG VIAL IV PUSH (08:43)
[2024-12-20] MEDS: [UNRECOGNIZED DRUG - OTHER] PO (08:52)
[2024-12-20] MEDS: VALBENAZINE 80 MG PO (08:52)
--- NOTE | 2024-12-20 10:26 | PCNWS ---
Weekly nutritional screen. Patient is tolerating current diet with adequate intake. No weight loss reported. No nutritional needs at this time.
--- NOTE | 2024-12-20 12:58 | PM.DS ---
DS: Admitting Diagnosis Discharge Date 12/20/2024 Admitting Diagnosis Fall at home DS: Discharge Diagnosis Discharge Diagnosis (1) Dizziness: Code(s): R42 - Dizziness and giddiness Status: Acute DS: Summary Hospital Course Hospital Course: 69-year-old female with history of dizziness vertigo syncope and falls, hypertension, CAD, BERTA, Parkinson's, CKD presents with syncope at home. No fractures identified. MIREYA and CKD, improved after fluid resuscitation. Patient had sinus bradycardia, she was seen by Cardiology. Coreg dose reduced in half to 12.5 mg p.o. b.i.d.. Orthostatic vitals are negative. To obtain better blood pressure control she was started on hydralazine 25 mg p.o. q.i.d. with good control. She was seen by Neurology. I spoke with Dr. Yun, advise no further inpatient treatment and to follow up with [facility] neurologist who she sees. I spoke with the patient, all of her questions and concerns were answered to satisfaction she agreed with the current plan. She is discharged home in stable condition on 12/20/2024, she has been referred for home health therapy on multiple occasion but she continues to decline. Discussed the risks. Time Spent with Patient Time attestation: Total time spent providing and/or coordinating discharge services: Exam Const: General: comfortable and no acute distress HENMT: Mouth: Yes moist mucous membranes Eyes: Pupils: Equal, round and reactive pupils present Other: No nystagmus Resp: Effort & Inspection: normal respiratory effort Auscultation: clear to auscultation bilaterally Cardio: Rate: bradycardic Rhythm: regular rhythm GI: GI Palp: Yes Soft to palpation and No Firmness to palpation present (GI) Neuro: Motor exam (neuro): 5/5 motor strength present throughout Extrem: General: no edema DS: Data Data Completed and Pending Labs on day of discharge: Labs from last 24 hours 12/20/24 05:27 WBC 7.9 RBC 3.58 L Hgb 10.7 L Hct 35.0 L MCV 97.8 MCH 29.9 MCHC 30.6 L RDW 13.6 Plt Count 162 MPV 11.3 H Immature Gran % (Auto) 0.4 Neut % (Auto) 62.6 Lymph % (Auto) 25.3 [place] % (Auto) 7.4 Eos % (Auto) 3.8 Baso % (Auto) 0.5 Lymph # (Auto) 2.00 [place] # (Auto) 0.6 Eos # (Auto) 0.3 Baso # (Auto) 0.0 Abs Immat Gran (auto) 0.03 Absolute Neuts (auto) 4.9 Absolute Nucleated RBC 0.000 Nucleated RBC % 0.0 Sodium 140 Potassium 3.7 Chloride 113 H Carbon Dioxide 23 Anion Gap 4 BUN 24 H Creatinine 2.07 H Estim Creat Clear Calc 23 Estimated GFR 24 L Glucose 88 Calcium 8.2 L Phosphorus 3.6 Magnesium 1.9 Albumin 3.2 L Discharge Plan Discharge Attending physician on discharge: Loren Luther Consulting providers: Maury Peña; Rita Barragan; Jamie Yun Discharging Clinician: Loren Luther Patient Disposition: Home Activity: august shower Diet: as tolerated Patient Instructions: Antibiotic Form, Heparin (By injection) Patient Language: Spanish Stand Alone Forms: General Discharge Information Follow-up/Referrals: Saul Marcelino MD [Primary Care Provider, [facility]] Discharge Medications: New carvedilol [Coreg] 12.5 mg Tablet 12.5 mg PO Q12HR Qty: 30 0RF hydralazine 25 mg tablet 25 mg PO QID Qty: 120 0RF Continued sertraline 100 mg tablet 150 mg PO DAILY acetaminophen [Tylenol Extra Strength] 500 mg tablet 500 mg PO Q6H PRN (Reason: headache) isosorbide mononitrate 60 mg tablet extended release 24 hr 120 mg PO DAILY atorvastatin 80 mg tablet 80 mg PO QHS topiramate 25 mg tablet 50 mg PO Q12H amantadine HCl 100 mg capsule 100 mg PO QHS trazodone 100 mg tablet 100 mg PO QHS PRN (Reason: Sleep) albuterol sulfate 90 mcg/actuation HFA aerosol inhaler 2 puff inhalation Q4H PRN (Reason: Shortness Of Breath) ropinirole 0.25 mg tablet 0.25 mg PO .daily hs Movantik 12.5 mg tablet 12.5 mg PO DAILY@0630 Ingrezza 80 mg capsule 80 mg PO DAILY sodium bicarbonate 650 mg tablet 650 mg PO BID umeclidinium-vilanterol [Anoro Ellipta] 62.5-25 mcg/actuation blister with device 1 inh INHALATION Q24H Vitamin K 100 mcg tablet 100 mcg BYMOUTH DAILY nitroglycerin 0.4 mg 0.4 mg BYMOUTH PRN PRN (Reason: Angina) Rx Instructions: one tablet under tongue every 5 minutes as needed for angina aspirin 81 mg tablet,delayed release (DR/EC) 81 mg PO DAILY cholecalciferol (vitamin D3) 25 mcg (1,000 unit) capsule 25 mcg PO DAILY Qty: 90 1RF amlodipine 10 mg tablet 10 mg PO DAILY Qty: 90 1RF valsartan 160 mg tablet See Rx Instructions .ROUTE .COMPLEX Qty: 180 0RF Dose Instruction: TAKE 2 TABLETS BY MOUTH DAILY Rx Instructions: TAKE 2 TABLETS BY MOUTH DAILY albuterol sulfate 2.5 mg /3 mL (0.083 %) solution for nebulization 2.5 mg continuous nebulization Q6H Qty: 90 1RF meclizine 25 mg tablet See Rx Instructions .ROUTE .COMPLEX Qty: 60 1RF Dose Instruction: TAKE 1 TABLET BY MOUTH TWICE A DAY NEEDED FOR DIZZINESS Rx Instructions: TAKE 1 TABLET BY MOUTH TWICE A DAY NEEDED FOR DIZZINESS hydrocodone-acetaminophen 10-325 mg tablet 1 tablet PO Q6H PRN (Reason: pain) Qty: 120 0RF ondansetron 4 mg tablet,disintegrating See Rx Instructions .ROUTE .COMPLEX Qty: 60 1RF Dose Instruction: DISSOLVE 1 TABLET BY MOUTH EVERY 8 HOURS NEEDED FOR NAUSEA/VOMITING Rx Instructions: DISSOLVE 1 TABLET BY MOUTH EVERY 8 HOURS NEEDED FOR NAUSEA/VOMITING Discontinued carvedilol 25 mg tablet 25 mg PO Q12H Date of admission: 12/14/24 07:18 Primary Care Provider: Saul Marcelino Admitting Provider: Rosas Martins Attending physician on admission: Rosas Martins Condition: Stable Hospitalist MIPS Heart Failure (Exclusion) Patient has history of Heart Transplant or Left Ventricular Assistive Device?: No IF YES, STOP HERE Heart Failure (Qualifier) Patient has current or prior documentation of LVEF less than or equal to 40%, or mod/servere depressed LVSF?: No IF NO, STOP HERE
--- NOTE | 2024-12-22 11:05 | WPDNEUROLOGY ---
Neurology EEG Report General Information Date of Study: 12/19/24 TEST electroencephalogram DIAGNOSIS loss of consciousness CONDITION OF RECORDING bedside according EEG NUMBER [id number] CLINICAL HISTORY the patient is 69 years old with history of loss of consciousness. EEG DESCRIPTION During wakefulness the background activity consists of posterior dominant alpha rhythm at approximately 8 hertz with an amplitude of 15-30 microvolts. Appears low amplitude mildly formed activity. Anteriorly low amplitude mixed frequency activity was seen. There is a minimal anteroposterior gradient. Stage I and 2 sleep record during vertex waves and sleep spindles were seen. Hyperventilation or photic stimulation were not performed. IMPRESSION This is a normal EEG obtained during awake and sleep states.
== END 2024-12-20 13:51 | disposition home or self-care (01) | DRG 312 ==
LOC: ANHED 20:53 → ANHIMU 21:18 → ANH3MED 12-15 06:41
PROVIDERS: Internal Medicine Nephrology; Nurse Practitioner; Admitting Provider Internal Medicine; Emergency Provider Physician Assistant; PCP Family Medicine; Visit Provider General Practice
DX: R55 Syncope and collapse (principal); N17.9 Acute kidney failure, unspecified; N18.32 Chronic kidney disease, stage 3b; I12.9 Hypertensive chronic kidney disease with stage 1 through stage 4 chronic kidney disease, or unspecified chronic kidney disease; I16.0 Hypertensive urgency; R00.1 Bradycardia, unspecified; I25.10 Atherosclerotic heart disease of native coronary artery without angina pectoris; I51.9 Heart disease, unspecified; H81.09 Meniere's disease, unspecified ear; I44.0 Atrioventricular block, first degree; J44.9 Chronic obstructive pulmonary disease, unspecified; S01.511A Laceration without foreign body of lip, initial encounter; W18.39XA Other fall on same level, initial encounter; G47.33 Obstructive sleep apnea (adult) (pediatric); M06.041 Rheumatoid arthritis without rheumatoid factor, right hand; M06.042 Rheumatoid arthritis without rheumatoid factor, left hand; F31.9 Bipolar disorder, unspecified; G24.01 Drug induced subacute dyskinesia; G20.A1 Parkinson's disease without dyskinesia, without mention of fluctuations; N20.0 Calculus of kidney; F10.21 Alcohol dependence, in remission; F12.90 Cannabis use, unspecified, uncomplicated; Z96.21 Cochlear implant status; Z87.891 Personal history of nicotine dependence; Z79.82 Long term (current) use of aspirin; Z79.891 Long term (current) use of opiate analgesic; Z99.89 Dependence on other enabling machines and devices; Z99.81 Dependence on supplemental oxygen; Z90.49 Acquired absence of other specified parts of digestive tract; Z90.10 Acquired absence of unspecified breast and nipple; Z79.02 Long term (current) use of antithrombotics/antiplatelets; Z91.81 History of falling; Z85.3 Personal history of malignant neoplasm of breast
CPT/HCPCS: 36415; 70450; 70486; 71046; 72125; 73562; 76770; 80053; 80069; 81001; 81050; 82550; 82570; 83735; 84100; 84156; 84300; 84484; 84540; 85025; 85999; 93005; 93306; 93880; 94640; 95816; 96361; 96374; 96375; 96376; 97110; 97161; 97165; 97530; 97535; 99285; A9270; G0378; J0360; J1644; J2470; J7030

== ENCOUNTER 2025-02-07 16:09 | Emergency (ER) | payer MEDICARE, MEDICAID, SELFPAY ==
--- OUTSIDE RECORDS SUMMARY | 2025-02-01 08:30 | XMS_ITS ---
Author Organization [facility] [employer] Address [address] [facility] [address] [place] [address] Care Team Providers Care Seafood Technology Specialist Name Role Phone Saul Marcelino MD Primary Care Provider Daniele Olsen Unavailable [phone] Allergies Allergen (clinical drug ingredient) Drug/Non Drug Allergy documented on EMR Reaction Allergy Type Onset Date Status TETANUS VACCINES AND TOXOID (uncoded) Unknown Allergy 11/18/2022 Active fluoxetine Fluoxetine Unknown Drug Allergy 11/18/2022 Acti ve Tetanus Immune Globulin Unknown Drug Allergy 11/18/2022 Active Tetanus-Diphtheria Toxoids Td Unknown Drug Allergy 11/18/2022 Active REASON FOR VISIT follow-up; complete falls plan of care Medications Medication SIG (Take, Route, Frequency, Duration) Notes Start Date End Date Status Sertraline HCl 100 MG Tablet 1.5 tablet Oral Once a day; Duration: 90 days 02/01/2025 Active buPROPion HCl ER (SR) 150 MG Tablet Extended Release 12 Hour 1 tablet Orally twice a day; Duration: 30 days take in the morning and afternoon 06/23/2024 Active rOPINIRole HCl 0.25 MG Tablet Oral; Duration: 90 Days Active traZODone HCl 100 MG Tablet 1 tablet at bedtime Oral Once a day; Duration: 90 days As needed 02/01/2025 Active Ingrezza 80 MG Capsule 1 capsule Orally Once a day; Duration: 30 days 02/01/2025 Active Ondansetron HCl 4 MG Tablet Oral 07/31/2023 Active ProAir HFA 108 (90 Base) MCG/ACT Aerosol Solution Inhalation 07/31/2023 Active Aspirin 81 MG Capsule Oral *Pick strength-form from [facility] for eRX* 07/31/2023 Active Valsartan 160 MG Tablet Oral 07/31/2023 Active Amantadine HCl 100 MG Capsule Oral 07/31/2023 Active Loratadine 10 MG Tablet Oral 07/31/2023 Active Trelegy Ellipta 100-62.5-25 mcg Aerosol Powder Breath Activated Inhalation *Pick strength-form from [facility] for eRX* 07/31/2023 Active Naproxen 500 MG Tablet Oral 07/31/2023 Active HYDROcodone-Acetaminoph en 10-325 MG Tablet Oral 07/31/2023 Active Doxazosin Mesylate 4 MG Tablet Oral 07/31/2023 Active HYDROcodone-Acetaminoph en 5-325 MG Tablet Oral 07/31/2023 Active amLODIPine Besylate 10 MG Tablet Oral 07/31/2023 Active Albuterol Sulfate 1.25 MG/3ML Nebulization Solution Inhalation 07/31/2023 Active Levalbuterol HCl 1.25 MG/3ML Nebulization Solution Inhalation 07/31/2023 Active Meclizine HCl 25 MG Tablet Oral 07/31/2023 Active Varenicline Tartrate(Continue) 1 MG Tablet Oral *[facility]order from [facility] for eRx and Interaction Alerts* 07/31/2023 Active Carvedilol 25 MG Tablet Oral 07/31/2023 Active CHOLECALCIFEROL (VITAMIN D3) 25 MCG (1,000 UNIT) CAPSULE *Reorder from [facility] for eRx and Interaction Alerts* 07/31/2023 Active Social History Tobacco Use: Social History Observation [...] every day smoker 09/23/2022,Smoking Status: 50 03/25/2023 Vital Signs Blood pressure systolic 130 mm Hg 02/02/20 25 Blood pressure diastolic 75 mm Hg 025 Heart Rate 65 /min 02/01/2025 Height 61.00 in 02/01/2025 Weight 170 lbs 02/01/2025 BMI 32.12 kg/m2 02/01/2025 Height-cm 154.94 cm 02/01/2025 Weight-kg 77.11 kg 02/01/2025 Encounters Encounter Location Date Provider Diagnosis [facility] [employer] [facility] [address] [place] [address] 02/01/2025 Daniele Vasquez Major depressive disorder, recurrent, mild F33.0 ; Other insomnia G47.09 ; Nicotine use Z72.0 ; Drug induced subacute dyskinesia G24.01 ; Chronic kidney disease, stage 3 unspecified N18.30 ; Nicotine dependence, cigarettes, uncomplicated F17.210 and Chronic obstructive pulmonary disease, unspecified J44.9 Assessments Encounter Date Diagnosis (ICD Code) Assessment Notes Treatment Notes Treatment Clinical Notes Section Notes 02/01/2025 Major depressive disorder, recurrent, mild (ICD-10 - F33.0) 02/01/2025 Other insomnia (ICD-10 - G47.09) 02/01/2025 Nicotine use (ICD-10 - Z72.0) 02/01/2025 Drug induced subacute dyskinesia (ICD-10 - G24.01) 02/01/2025 Chronic kidney disease, stage 3 unspecified (ICD-10 - N18.30) 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 02/01/2025 Nicotine dependence, cigarettes, uncomplicated (ICD-10 - F17.210) has tried chantix in the past- states it makes her smoke more, Bupropion- makes dizzy 02/01/2025 Chronic obstructive pulmonary disease, unspecified (ICD-10 - J44.9) Plan Of Treatment Medication Medication Name Sig Start Date Stop Date Notes Sertraline HCl 100 MG Tablet 1.5 tablet Oral Once a day; Duration: 90 days 02/01/2025 traZODone HCl 100 MG Tablet 1 tablet at bedtime Oral Once a day; Duration: 90 days 02/01/2025 Ingrezza 80 MG Capsule 1 capsule Orally Once a day; Duration: 30 days 02/01/2025 Treatment Notes Assessment Notes Chronic kidney disease, stage 3 unspecif ied 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 Nicotine dependence, cigaret lila, uncomplicated has tried chantix in the past- states it makes her smoke more, Bupropion- makes dizzy Next Appt Details Follow Up: 3 Months, Reason: f/u depression, anxiety Provider Name:Daniele allen, 05/04/2025 02:00:00 PM, [address], [address], [place], [address], History and Physical Notes * HPI (History of Present Illness) Category Sub-Category Detail Notes Category Not es History of Presenting Problem Anxiety stable Depression screening done Depression states depression wo rse around the holidays, misses getting together with her family Sleep disturbance states she has troub le sleeping at night, sleeps in the day a lot sleep apnea, uses cpap Depression screening PHQ-9 Little inte rest or pleasure in doing things: More than half the days Feeling down, depressed, or hopeless: Ne kiersten every day Trouble falling or staying asleep, or sl eeping too much: Not at all Feeling tired or having little energy: N ot at all Poor appetite or overeating: Not at all Feeling bad about yourself o r that you are a failure, or have let yourself or your family down: Several days Trouble concentrating on thi ngs, such as reading the newspaper or watching television: Not at all Moving or speaking so slowly that other people could have noticed; or the opposite, being so fidgety or restless that you have been moving around a lot more than usual: Not at all Thoughts that you would be b sami off or of hurting yourself in some way: Not at all Total Score: 6 Interpretation: Mild Depression Intervention Depression Screening Findings: P ositve Follow-Up for Depression: Ok ntal health care management, Psychiatric follow-up Suicide Risk Assessment Performed: __ da te Functional Status Functional Status Assessment D ate of last completed Functional Status Assessment:: 02/01/2025 Fall Risk Assessment:: Two or more falls with injury in the past year Examination Category Sub-Category Detail Notes Category Not es Psychiatry Appearance: obese, walks with walker Abnormal body movements: oral buccal mov ement improved with Ingrezza Attention: normal in conversati on Orientation: awake, alert and lyn ented x 3 Affect / mood: appropriate Speech / language: appropriate pitch/mo dulation, clear and coherent, normal rate, volume, and articulation (RVR), proper grammar used Thought content: appropriate Perceptual disorders: no perceptual diso rder noted Suicidal ideation: none Hallucinations: no Gait uses wheeled walker Progress Notes * RODRI YUSUF JDOB:1955 (69 yo F)Acc No.[id number]:02/01/2025 Patient: RODRI CAZARES Provider: LINN ANDERSON :1955 A ge:69 Y S ex:Female Date:02/01/2025 Address:[address] [place], [place] [address] Pcp:Saul Marcelino MD Subjective: * Chief Complaints: * F ollow-up; complete falls plan of care * HPI: H istory of Presenting Problem: Depression s tates depression worse around the holidays, misses getting together with her family. Anxiety s table. Sleep disturbance s tates she has trouble sleeping at night, sleeps in the day a lot s leep apnea, uses cpap. Depression screening done. F unctional Status: Functional Status Assessment D ate of last completed Functional Status Assessment: 1 F all Risk Assessment: T wo or more falls with injury in the past year D epression screening: PHQ-9 L ittle interest or pleasure in doing things?More than half the days F eeling down, depressed, or hopeless N early every day T rouble falling or staying asleep, or sleeping too much N ot at all F eeling tired or having little energy N ot at all P oor appetite or overeating N ot at all F eeling bad about yourself or that you are a failure, or have let yourself or your family down S everal days T rouble concentrating on things, such as reading the newspaper or watching television N ot at all M oving or speaking so slowly that other people could have noticed; or the opposite, being so fidgety or restless that you have been moving around a lot more than usual N ot at all T houghts that you would be better off or of hurting yourself in some way N ot at all T otal Score 6 I nterpretation M ild Depression Intervention D epression Screening Findings P ositve F ollow-Up for Depression M ental health care management, Psychiatric follow-up S uicide Risk Assessment Performed _ _ date P ast Psychiatric Medications: bupropion- dizzy, A ustedo, trazodone, sertraline, ingrezza, duloxetine. * Medical History: Problems: Chronic kidney disease stage 3 Chronic obstructive lung disease Hepatic cystadenoma Mild recurrent major depression Neuroleptic-induced tardive dyskinesia Persistent insomnia Tobacco dependence caused by cigarettes , Medical History Verified * Social History: T obacco Use: T obacco Control (Standard) T obacco use: F ormer smoker H ow often do you smoke cigarettes? E very day H ow many cigarettes a day do you smoke? 6 -10 H ow soon after you wake up do you smoke your first cigarette? 6 -30 minutes A re you interested in quitting? R maci to quit H ow long has it been since you last smoked??1-3 months M igrated Social History: M igrated Social History: Alcohol Intake: None 11/13/2021,Tobacco Years: Current every day smoker 09/23/2022,Smoking Status: 50 03/25/2023. M iscellaneous: A dvance Care Planning A dvance Directive D o Not Intubate S ocial History Verified. * Medications: T akingSertraline HCl 100 MG Tablet 1.5 tablet Oral Once a day traZODone HCl 100 MG Tablet 1 tablet at bedtime Oral Once a day As neededIngrezza 80 MG Capsule 1 capsule Orally Once a day Carvedilol 25 MG Tablet Oral CHOLECALCIFEROL (VITAMIN D3) 25 MCG (1,000 UNIT) CAPSULE , Notes to Pharmacist: *Reorder from [facility] for eRx and Interaction Alerts*Varenicline Tartrate(Continue) 1 MG Tablet Oral , Notes to Pharmacist: *[facility] for eRx and Interaction Alerts*amLODIPine Besylate 10 MG Tablet Oral HYDROcodone-Acetaminophen 5-325 MG Tablet Oral Levalbuterol HCl 1.25 MG/3ML Nebulization Solution Inhalation Meclizine HCl 25 MG Tablet Oral Albuterol Sulfate 1.25 MG/3ML Nebulization Solution Inhalation Loratadine 10 MG Tablet Oral HYDROcodone-Acetaminophen 10-325 MG Tablet Oral Doxazosin Mesylate 4 MG Tablet Oral Trelegy Ellipta 100-62.5-25 mcg Aerosol Powder Breath Activated Inhalation , Notes to Pharmacist: *Pick strength-form from [facility] for eRX*Naproxen 500 MG Tablet Oral Ondansetron HCl 4 MG Tablet Oral ProAir HFA 108 (90 Base) MCG/ACT Aerosol Solution Inhalation Aspirin 81 MG Capsule Oral , Notes to Pharmacist: *Pick strength-form from [facility] for eRX*Valsartan 160 MG Tablet Oral Amantadine HCl 100 MG Capsule Oral buPROPion HCl ER (SR) 150 MG Tablet Extended Release 12 Hour 1 tablet Orally twice a day take in the morning and afternoonrOPINIRole HCl 0.25 MG Tablet Oral Medication List reviewed and reconciled with the patientTaking Sertraline HCl 100 MG Tablet 1.5 tablet Oral Once a day Taking traZODone HCl 100 MG Tablet 1 tablet at bedtime Oral Once a day As neededTaking Ingrezza 80 MG Capsule 1 capsule Orally Once a day Taking Carvedilol 25 MG Tablet Oral Taking CHOLECALCIFEROL (VITAMIN D3) 25 MCG (1,000 UNIT) CAPSULE , Notes to Pharmacist: *Reorder from [facility] for eRx and Interaction Alerts*Taking Varenicline Tartrate(Continue) 1 MG Tablet Oral , Notes to Pharmacist: *Reorder from [facility] for eRx and Interaction Alerts*Taking amLODIPine Besylate 10 MG Tablet Oral Taking HYDROcodone-Acetaminophen 5-325 MG Tablet Oral Taking Levalbuterol HCl 1.25 MG/3ML Nebulization Solution Inhalation Taking Meclizine HCl 25 MG Tablet Oral Taking Albuterol Sulfate 1.25 MG/3ML Nebulization Solution Inhalation Taking Loratadine 10 MG Tablet Oral Taking HYDROcodone-Acetaminophen 10-325 MG Tablet Oral Taking Doxazosin Mesylate 4 MG Tablet Oral Taking Trelegy Ellipta 100-62.5-25 mcg Aerosol Powder Breath Activated Inhalation , Notes to Pharmacist: *Pick strength-form from [facility] for eRX*Taking Naproxen 500 MG Tablet Oral Taking Ondansetron HCl 4 MG Tablet Oral Taking ProAir HFA 108 (90 Base) MCG/ACT Aerosol Solution Inhalation Taking Aspirin 81 MG Capsule Oral , Notes to Pharmacist: *Pick strength-form from [facility] for eRX*Taking Valsartan 160 MG Tablet Oral Taking Amantadine HCl 100 MG Capsule Oral Taking buPROPion HCl ER (SR) 150 MG Tablet Extended Release 12 Hour 1 tablet Orally twice a day take in the morning and afternoonTaking rOPINIRole HCl 0.25 MG Tablet Oral Medication List reviewed and reconciled with the patient * Allergies: T ETANUS VACCINES AND TOXOID: Allergy - Onset Date 11/18/2022Fluoxetine: Allergy - Onset Date 11/18/2022Tetanus Immune Globulin: Allergy - Onset Date 11/18/2022Tetanus-Diphtheria Toxoids Td: Allergy - Onset Date 11/18/2022yesAllergies Verified. Objective: * Vitals: B P:130/75mm Hg, HR:65/min, Wt:170lbs, Wt-k.11 kg, Ht: 61.00 in, Ht-cm: 154.94 cm, BMI:32.12Index, Body Surface Area: 1.82. * Examination: P sychiatry: Appearance: o bese, walks with walker. Abnormal body movements: o ral buccal movement improved with Ingrezza. Affect / mood: a ppropriate. Attention: n ormal in conversation. Gait u ses wheeled walker. Suicidal ideation: n one. Hallucinations: n o. Orientation: a wake, alert and oriented x 3. Perceptual disorders: n o perceptual disorder noted. Speech / language: a ppropriate pitch/modulation, clear and coherent, normal rate, volume, and articulation (RVR), proper grammar used. Thought content: a ppropriate. Assessment: * Assessment: 1. M ajor depressive disorder, recurrent, mild - F33.0 (Primary) 2 . O ther insomnia - G47.09 3 . N icotine use - Z72.0 4 . D rug induced subacute dyskinesia - G24.01 5 . C hronic kidney disease, stage 3 unspecified - N18.30 6 . N icotine dependence, cigarettes, uncomplicated - F17.210 ? 7 . C hronic obstructive pulmonary disease, unspecified - J44.9 Plan: * Treatment: 2. O ther insomnia Refill traZODone HCl Tablet, 100 MG, 1 tablet at bedtime, Oral, Once a day As needed, 90 days, 90 Tablet, Refills 1. 3. D rug induced subacute dyskinesia Refill Ingrezza Capsule, 80 MG, 1 capsule, Orally, Once a day, 30 days, 30, Refills 3. 4. 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 N icotine dependence, cigarettes, uncomplicated Notes: has tried chantix in the past- states it makes her smoke more, Bupropion- makes dizzy * Procedure Codes: 1 036F TOBACCO [id number] BEHAV ASSMT W/SCORE & DOCD/STAND INSTRUMENT * Preventive Medicine: Screenings: D epression screening Have you had a recent depression screening? Y es * Follow Up: 3 Months (Reason: f/u depression, anxiety) Billing Information: * Visit Code: 67928 OFFICE OUTPATIENT VISIT 25 MINUTES DETAILED HISTORY AND EXAM/MODERATE MEDICAL DECISION MAKING. * Procedure Codes: 1036F TOBACCO NON-USER. 68779 BEHAV ASSMT W/SCORE & DOCD/STAND INSTRUMENT. * Electronic signature of LINN Barrett on 02/07/2025 at 04:54 PM CHAIN MAKER MACHINE Sign off status: Pending * Provider: LINN ANDERSON Date: Generated for Juanita joseph/Javier/Yoel on: 04/09/2024 04:54 PM CHAIN MAKER MACHINE
--- OUTSIDE RECORDS SUMMARY | 2025-02-06 14:00 | XMS_ITS | Encounter Summary ---
Author Organization [facility] Address [address] [place] [address] Care Team Providers Care Tennis Net Maker Name Role Phone Saul Marcelino MD Primary Care Provider [phone] Francia Hammonds MD Unavailable [phone] Andre Mccann MD Unavailable [phone] Ana Andersen MD Unavailable [phone] Vincent Sandra MD Unavailable [phone] Joan Wodo MD Unavailable Lyudmila Bangura MD Unavailable Gloria Alatorre MD Unavailable Mony Zaldivar PharmD Unavailable Unavaila Shirley Barillas PharmD Unavailable Unavailable Anastacia Garces RN Unavailable Unavailable Tabatha Solorzano Unavailable Unavailable Ness Ortiz Unavailable Sarah vaGrisel Kidd PANTOGRAPH MACHINE SET UP OPERATOR-HOISTING ENGINEER Unavailable Nannette Joshi RN Unavailable Unavailable Sylwia Lovelace ORTHOTIC PRACTITIONER Unavailable Unavailab Saul Kimball MD Unavailable Reason for Visit * Radiology Services (Routine) - Authorized Specialty Diagnoses / Procedures Referred By Contac t Referred To Contact CT Scan Diagnoses Screening for lung cancer Nicotine dependence, cigarettes, uncomplicated Procedures CT Lung Screen Low Dose Beau Myrick MD [address] [facility] 2L DIV OF PULMONARY/[place] [address] Phone: tel: fax: [facility] CAT SCAN [address] [place] [address] Phone: tel: fax: Referral ID Status Reason Start Date Expiration Date V isits Requested Visits Authorized [id number] Authorized 02/04/2025 02/04/2026 1 1 Encounter Details Date Type Department Care Team (Late st Contact Info) Description 02/06/2025 2:00 PM HEEL COVERER MACHINE OPERATOR Hospital Encounter [facility] CAT SCAN [address] [place] [phone] Beau Myrick MD [address] [facility] 2L DIV OF PULMONARY/[place] [address] Social History Tobacco Use Types Packs/Day Years Used Date Smoking Tobacco: Every Day Cigarettes 0.5 60.8 Started: 1963 Smokeless Tobacco: Current Comments:Quit cigs 4 months ago, vapes daily Alcohol Use Standard Drinks/Week Comments Not Currently 0 (1 standard drink = 0.6 oz pure alcohol) prior 2-3 times a month, quit 1989 PHQ-2 Answer Date Recorded Patient Health Questionnaire-2 Score 3 02/10/2024 AUDIT-C Answer Date Recorded Q1: How often do you have a drink containing alc ohol? Never 01/16/2025 Average Number of Drinks Not on file 025 Frequency of Binge Drinking Not on file 01/04 Education Answer Date Recorded What is the highest level of school you have completed or the highest degree you have received? 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 Answer Date of Assessment Author No 01/16/2025 10:36 AM Deja Peterson RN * Is person blind or have serious difficulty seeing? Answer Date of Assessment Author No 01/16/2025 10:36 AM Deja Peterson RN * Does person have serious difficulty walking/climbing stairs? Answer Date of Assessment Author Yes 01/16/2025 10:36 AM Deja Peterson RN * Does person have difficulty dressing/bathing? Answer Date of Assessment Author No 01/16/2025 10:36 AM Deja Peterson RN * Does person have difficulty doing errands alone? Answer Date of Assessment Author Yes 01/16/2025 10:36 AM Deja Peterson RN documented as of this encounter Mental Status * Does person have difficulty concentrating/remembering/making decisions? Answer Entry Date Author No 01/16/2025 10:36 AM Deja Peterson RN documented in this encounter Plan of Treatment Upcoming Encounters Date Type Department Care Team (Late st Contact Info) Description 03/16/2025 2:00 PM HEEL COVERER MACHINE OPERATOR Office Visit [facility] - Neurology [address] [place] [address], [place] [address] Gary Virgen APRN-HOISTING ENGINEER [facility] [facility] 1L [place] [address] 03/21/2025 11:00 AM HEEL COVERER MACHINE OPERATOR Office Visit [facility] - Sleep Services [address] [facility] [address] [place] [address] Maura Simmons APNP-HOISTING ENGINEER [address] [facility] [address] [place] [address] 05/25/2025 11:00 AM HEEL COVERER MACHINE OPERATOR Office Visit [facility] - Nephrology [address] [place] [address], [place] [address] Francia Hammonds MD [address] [place] [address] 3L [place] [address] 06/07/2025 11:00 AM HEEL COVERER MACHINE OPERATOR Office Visit [facility] - Cardiology [address] [facility] [place] [phone] Andrés Kaye MD [address] [facility] [address] [place] [address] 09/13/2025 1:45 PM CDT Appointment [facility] [address] [facility] 2nd [place] [address] 09/13/2025 2:00 PM CDT Office Visit [facility] - Hematology/Oncology [address] [place] [address] Aubree Thomas MD [address] [place] [address] Scheduled Orders Name Type Priority Associated Diagnoses Orde r Schedule CT Lung Screen Low Dose Imaging Routine Screening for lung cancer Nicotine dependence, cigarettes, uncomplicated Expected: 02/04/2025, Expires: 06/14/2025 documented as of this encounter Goals Goal [...] 2:48 PM CDT) No Rebecca De Jesus, KIMO Note: Expected [...] on filedocumented in this encounter Care Teams Tennis Net Maker Relationship Specialty Start Date End Date Saul Marcelino MD [address] [place] [phone] PCP - General Family Medicine 04/20/24 Francia Hammonds MD [address] [place] [address] 3 [place] [address] Skip Tender Nephrology 11/24/24 Andre Mccann MD [address] [place] [phone] Hematology and Oncology 11/24/24 Ana Andersen MD [address] [place] [address] Hematology and Oncology 11/24/24 Vincent Sandra MD [address] [place] [address] Silver Lap Machine Tender/Oncologis t Hematology and Oncology 11/24/24 Joan Wood MD [address] [place] [address] Silver Lap Machine Tender/Oncologis t Hematology and Oncology 11/24/24 [place] [address] [place] [address] Physician Hematology and Oncology 11/24/24 [place] [address] [place] [phone] Physician Hematology and Oncology 11/24/24 Mony Zaldivar, PharmD 11/24/24 Shirley Barahona, PharmD Pharmacist 11/24/24 Anastacia Garces, RN Registered Nurse 11/24/24 Tabatha Solorzano 11/24/24 Ness Ortiz 11/24/24 Grisel Dobbins, [employer] [address] [place] [phone] Nurse Practitioner Nurse Practitioner 11/24/24 Nannette Joshi, RN Registered Nurse 11/24/24 Sylwia Lovelace, [facility] [address] [place] [address] Loader Magazine Grinder 11/24/24 Saul Marcelino MD [address] [place] [address] Family Medicine 01/05/25 documented as of this encounter
--- OUTSIDE RECORDS SUMMARY | 2025-02-06 14:00 | XMS_ITS | Encounter Summary ---
Author Organization [facility] Address [address] [place] [address] Care Team Providers Care Csm Consultant Name Role Phone Saul Marcelino MD Primary Care Provider [phone] Francia Hammonds MD Unavailable [phone] Andre Mccann MD Unavailable [phone] Ana Andersen MD Unavailable [phone] Vincent Sandra MD Unavailable Joan Wood MD Unavailable Lyudmila Bangura MD Unavailable Gloria Alatorre MD Unavailable Mony Zaldivar PharmD Unavailable Unavaila Shirley Barillas PharmD Unavailable Unavailable Anastacia Garces RN Unavailable Unavailable Tabatha Solorzano Unavailable Unavailable Ness Ortiz Unavailable Sarah vaGrisel Kidd FREIGHT CHECKER-DATA SUPPORT SPECIALIST Unavailable [phone] Nannette Joshi RN Unavailable Unavailable Sylwia Lovelace CHECK OUT CASHIER Unavailable Unavailab Saul Kimball MD Unavailable Reason for Visit * Radiology Services (Routine) - Authorized Specialty Diagnoses / Procedures Referred By Contac t Referred To Contact CT Scan Diagnoses Screening for lung cancer Nicotine dependence, cigarettes, uncomplicated Procedures CT Lung Screen Low Dose Beau Myrick MD [address] [facility] 2L DIV OF PULMONARY/[place] [address] Phone: tel: fax: [facility] CAT SCAN [address] [place] [address] Phone: tel: fax: Referral ID Status Reason Start Date Expiration Date V isits Requested Visits Authorized [id number] Authorized 02/04/2025 02/04/2026 1 1 Encounter Details Date Type Department Care Team (Late st Contact Info) Description 02/06/2025 2:00 PM MIXER CRANE OPERATOR Hospital Encounter [facility] CAT SCAN [address] [place] [phone] Beau Myrick MD [address] [facility] 2L DIV OF PULMONARY/[place] [address] Social History Tobacco Use Types Packs/Day Years [...] on file Legal Sex 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 MIXER CRANE OPERATOR Gender Identity Not on file Sexual [...] st Contact Info) Description 03/16/2025 2:00 PM MIXER CRANE OPERATOR Office Visit [facility] - Neurology [address] [place] [address], [place] [address] Gary Virgen APRN-DATA SUPPORT SPECIALIST [facility]5 [facility] 1L [place] [address] 03/21/2025 11:00 AM MIXER CRANE OPERATOR Office Visit [facility] - Sleep Services [address] [facility] 550 [place] [address] Maura Simmons APNP-DATA SUPPORT SPECIALIST [address] [facility] 550 [place] [address] 05/25/2025 11:00 AM MIXER CRANE OPERATOR Office Visit [facility] - Nephrology [address] [place] [address], [place] [address] Francia Hammonds MD [address] [place] [address] 3L [place] [address] 06/07/2025 11:00 AM MIXER CRANE OPERATOR Office Visit [facility] - Cardiology [address] [facility], [address] [place] [address] Andrés Kaye MD [address] [facility] [address] [place] [address] 09/13/2025 1:45 PM CDT Appointment [facility] CANCER CARE DRAWSTATION 3655 [facility], 2nd [place] [address] 09/13/2025 2:00 PM CDT Office Visit [facility] - Hematology/Oncology [address] [place] [address] Aubree Thomas MD [address] [place] [address] Scheduled Orders Name Type Priority [...] on filedocumented in this encounter Care Teams Csm Consultant Relationship Specialty Start Date End Date Saul Marcelino MD [address] [place] [phone] PCP - General Family Medicine 04/20/24 Francia Hammonds MD [address] [place] [address] 3 [place] [address] Member Of Technical Staff Nephrology 11/24/24 Andre Mccann MD [address] [place] [phone] Hematology and Oncology 11/24/24 Ana Andersen MD [address] [place] [address] Hematology and Oncology 11/24/24 Vincent Sandra MD [address] [place] [address] Direct Care Staffer/Oncologis t Hematology and Oncology 11/24/24 Joan Wood MD [address] [place] [address] Direct Care Staffer/Oncologis t Hematology and Oncology 11/24/24 [place] [address] [place] [address] Physician Hematology and Oncology 11/24/24 [place] [address] [place] [phone] Physician Hematology and Oncology 11/24/24 Mony Zaldivar, PharmD 11/24/24 Shirley Barahona, PharmD Pharmacist 11/24/24 Anastacia Garces, RN Registered Nurse 11/24/24 Tabatha Solorzano 11/24/24 Ness Ortiz 11/24/24 Grisel Dobbins, INDRA-POP [address] [place] [address] Nurse Practitioner Nurse Practitioner 11/24/24 Nannette Joshi, RN Registered Nurse 11/24/24 Sylwia Lovelace, [facility] [address] [place] [address] Doper Operator 11/24/24 Saul Marcelino MD [address] [place] [address] Family Medicine 01/05/25 documented as of this encounter
[2025-02-07 16:17] VITALS: BP 151/67; PULSE 56; RESP 20; TEMP 37.2; O2SAT 97
--- OUTSIDE RECORDS SUMMARY | 2025-02-07 16:53 | XMS_ITS | Encounter Summary ---
Author Organization [facility] Address [facility]3 [facility] [place] [address] Care Team Providers Care Shop Girl Name Role Phone Saul Marcelino MD Primary Care Provider [phone] Francia Hammonds MD Unavailable [phone] Andre Mccann MD Unavailable [phone] Ana Andersen MD Unavailable [phone] Vincent Sandra MD Unavailable [phone] Joan Wood MD Unavailable Lyudmila Bangura MD Unavailable Gloria Alatorre MD Unavailable Mony Zaldivar PharmD Unavailable Unavaila Shirley Barillas PharmD Unavailable Unavailable Anastacia Garces RN Unavailable Unavailable Tabatha Solorzano Unavailable Unavailable Ness Ortiz Unavailable Sarah Grisel Singh MDM DEVELOPER-CLOTH PRINTING INSPECTOR Unavailable [phone] Nannette Joshi RN Unavailable Unavailable Sylwia Lovelace HALL PORTER Unavailable Unavailab Saul Kimball MD Unavailable Reason for Visit * Reason Onset Date Comments MEDICATION REFILL 10/04/2024 Encounter Details Date Type Department Care Team (Late st Contact Info) Description 10/04/2024 Refill [facility] - Pulmonology 1225 [facility], [place] [address] Maico Murphy MD [address] [place] [address] MEDICATION REFILL Social History Tobacco Use Types Packs/Day Years Used Date Smoking Tobacco: Former Cigarettes 0.3 60.8 S tarted: 1965 Smokeless Tobacco: Current Comments:Pack [...] on file Legal Sex 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 EMBOSSING UNIT OPERATOR Gender Identity Not on file Sexual [...] st Contact Info) Description 03/16/2025 2:00 PM EMBOSSING UNIT OPERATOR Office Visit [facility] - Neurology [address] [place] [address], [place] [address] Gary Virgen MDM DEVELOPER-CLOTH PRINTING INSPECTOR [address] [facility] 1L [place] [address] 03/21/2025 11:00 AM EMBOSSING UNIT OPERATOR Office Visit [facility] - Sleep Services 1034 [facility] 550 [place] [address] Maura Simmons, APNP-CLOTH PRINTING INSPECTOR 1034 [facility] 550 [place] [address] 05/25/2025 11:00 AM EMBOSSING UNIT OPERATOR Office Visit [facility] - Nephrology [facility]5 [facility], [place] [address] Francia Hammonds MD 1225 [facility] 3L [place] [address] 06/07/2025 11:00 AM EMBOSSING UNIT OPERATOR Office Visit [facility] - Cardiology 1034 [facility], [facility] 1120 [place] [address] Andrés Kaye MD 1034 [facility] [address] [place] [address] 09/13/2025 1:45 PM CDT Appointment [facility] CANCER CARE DRAWSTATION [address] [place] [address], 2nd [place] [address] 09/13/2025 2:00 PM CDT Office Visit [facility] - Hematology/Oncology [address] [place] [address] Aubree Thomas MD [address]7 [place] [address] documented as of this encounter Goals Goal Patient Goal Type Associated Problems Recent Progress Patient-Stated? Author Medication Management General On track( 2:47 PM CDT) No Radha Bellamy, RN Note: Expected end date: Ongoing Interventions: Take all medications as prescribed Let your doctor know right away about any changes in your medications Make sure to request a refill of your medication at least one week prior to your last dose Safety General On track( 2:48 PM CDT) No Rebecca De Jesus [...] on filedocumented in this encounter Care Teams Shop Girl Relationship Specialty Start Date End Date Saul Marcelino MD [address] [place] [phone] PCP - General Family Medicine 04/20/24 Francia Hammonds MD [address] [place] [address] 3 [place] [address] [employer]otive Tire Testing Supervisor Nephrology 11/24/24 Andre Mccann MD [address] [place] [address] Hematology and Oncology 11/24/24 [place] [address] [place] [address] Hematology and Oncology 11/24/24 Vincent Sandra MD [address] [place] [address] Licensed Dispensing Optician/Oncologis t Hematology and Oncology 11/24/24 [place] [address] [place] [address] Licensed Dispensing Optician/Oncologis t Hematology and Oncology 11/24/24 [place] [address] [place] [address] Physician Hematology and Oncology 11/24/24 Gloria Alatorre MD [address] [place] [phone] Physician Hematology and Oncology 11/24/24 Mony Zaldivar, PharmD 11/24/24 Shirley Barahona, PharmD Pharmacist 11/24/24 Anastacia Garces RN Registered Nurse 11/24/24 Tabatha Solorzano 11/24/24 Ness Ortiz 11/24/24 Grisel Dobbins, MDM DEVELOPER-CLOTH PRINTING INSPECTOR [address] [place] [address] Nurse Practitioner Nurse Practitioner 11/24/24 Nannette Joshi, RN Registered Nurse 11/24/24 Sylwia Lovelace, HALL PORTER [address] [place] [address] Tray Drier Operator 11/24/24 Saul Marcelino MD [address] [place] [address] Family Medicine 01/05/25 documented as of this encounter
--- OUTSIDE RECORDS SUMMARY | 2025-02-07 16:53 | XMS_ITS | Encounter Summary ---
Author Organization [facility] Address [facility]3 [facility] [place] [address] Care Team Providers Care Gold Wheel Blocker And Polisher Name Role Phone Saul Marcelino MD Primary Care Provider [phone] Francia Hammonds MD Unavailable [phone] Andre Mccann MD Unavailable [phone] Ana Andersen MD Unavailable [phone] Vincent aSndra MD Unavailable [phone] Joan Wood MD Unavailable Lyudmila Bangura MD Unavailable Gloria Alatorre MD Unavailable Mony Zaldivar PharmD Unavailable Unavaila Shirley Barillas PharmD Unavailable Unavailable Anastacia Garces RN Unavailable Unavailable Tabatha Solorzano Unavailable Unavailable Ness Ortiz Unavailable Sarah Grisel Singh SUPERVISOR SHELLF[employer] FARMING-TELEVISION INSTALLER HELPER Unavailable [phone] Nannette Joshi RN Unavailable Unavailable Sylwia Lovelace MANAGER AUTO Unavailable Unavailab Saul Kimball MD Unavailable Reason for Visit * Reason Onset Date Comments MEDICATION REFILL 10/04/2024 Encounter Details Date Type Department Care Team (Late st Contact Info) Description 10/04/2024 Refill [facility] - Pulmonology 1225 [facility], [place] [address] Beau Myrick MD [address] [facility] 2L [facility] OF PULMONARY/[place] [address] MEDICATION REFILL Social History Tobacco Use Types [...] on file Legal Sex 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 DINKEY BRAKEMAN Gender Identity Not on file Sexual Orientation [...] PM CDT Roskowski , Bella P, RN * Does person have difficulty doing [...] st Contact Info) Description 03/16/2025 2:00 PM DINKEY BRAKEMAN Office Visit [facility] - Neurology [address] [place] [address], [place] [address] Gary Virgen APRN-TELEVISION INSTALLER HELPER [address] [facility] 1L [place] [address] 03/21/2025 11:00 AM DINKEY BRAKEMAN Office Visit [facility] - Sleep Services 1034 [facility] 550 [place] [address] Maura Simmons APNP-TELEVISION INSTALLER HELPER 1034 [facility] 550 [place] [address] 05/25/2025 11:00 AM DINKEY BRAKEMAN Office Visit [facility] - Nephrology [address] [place] [address], [place] [address] Francia Hammonds MD 1225 [facility] 3L [place] [address] 06/07/2025 11:00 AM DINKEY BRAKEMAN Office Visit [facility] - Cardiology [address] [facility] [place] [address] [place] [address] Andrés Kaye MD [address] [facility] SUITE [facility]0 [place] [address] 09/13/2025 1:45 PM CDT Appointment [facility] CANCER CARE DRAWSTATION [address], 2nd [place] [address] 09/13/2025 2:00 PM CDT Office Visit [facility] - Hematology/Oncology [address] [place] [address] Aubree Thomas MD [address]5 [place] [address] documented as of this encounter [...] asthma documented in this encounter Care Teams Gold Wheel Blocker And Polisher Relationship Specialty Start Date End Date Saul Marcelino MD [address] [place] [phone] PCP - General Family Medicine 04/20/24 Francia Hammonds MD 1225 [facility] 3L [place] [address] Barrel Charrer Nephrology 11/24/24 Andre Mccann MD [address] [place] [phone] Hematology and Oncology 11/24/24 Ana Andersen MD [address] [place] [address] Hematology and Oncology 11/24/24 Vincent Sandra MD [address] [place] [address] Securities Consultant/Oncologis t Hematology and Oncology 11/24/24 Joan Wood MD [address] [place] [address] Securities Consultant/Oncologis t Hematology and Oncology 11/24/24 Lyudmila Bangura MD [address] [place] [address] Physician Hematology and Oncology 11/24/24 Gloria Alatorre MD [address] [place] [phone] Physician Hematology and Oncology 11/24/24 Mony Zaldivar, PharmD 11/24/24 Shirley Barahona, PharmD Pharmacist 11/24/24 Anastacia Garces RN Registered Nurse 11/24/24 Tabatha Solorzano 11/24/24 Ness Ortiz 11/24/24 Grisel Dobbins, INDRA-TELEVISION INSTALLER HELPER [facility] [place] [address] Nurse Practitioner Nurse Practitioner 11/24/24 Nannette Joshi, RN Registered Nurse 11/24/24 Sylwia Lovelace LCSW 3655 [facility] [address] City Clerk 11/24/24 Saul Marcelino MD [address] [place] [address] Family Medicine 01/05/25 documented as of this encounter
--- OUTSIDE RECORDS SUMMARY | 2025-02-07 16:53 | XMS_ITS ---
Author Organization [facility] Medical Office Building A Address [address] [place] [address] Care Team Providers Care Grocery Store Associate Name Role Phone Saul Marcelino MD Primary Care Provider [phone] Active Problems Problem Noted Date Diagnosed Date Renal disorder 12/08/2023 Overview (12/08/2023): Kidney failure Generalized anxiety disorder with panic attacks 05/14/2023 Leg cramps 05/14/2023 BERTA (obstructive sleep apnea) 05/14/2023 PND (paroxysmal nocturnal dyspnea) 05/14/2023 Restless legs syndrome (RLS) 05/14/2023 Stage 3b chronic kidney disease 05/14/2023 Cystic disease of liver 09/18/2022 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 09/17/2022 Nontoxic [...] 03/15/2020 Assessment & Plan (04/26/2020 3:09 PM POPULATION HEALTH MANAGER): Controlled with medication including Lasix CKD - continue medication per PCP Assessment & Plan (03/15/2020 3:58 PM POPULATION HEALTH MANAGER): Controlled with medication including Lasix CKD - continue medication per PCP Mixed hyperlipidemia 03/15/2020 Hypercalcemia 03/15/2020 Assessment & Plan (04/26/2020 3:09 PM POPULATION HEALTH MANAGER): Detected on labs on 03/09/20 Calcium of [...] functions Assessment & Plan (03/15/2020 3:57 PM POPULATION HEALTH MANAGER): Detected on recent labs on 03/09/20 Calcium [...]
--- OUTSIDE RECORDS SUMMARY | 2025-02-07 16:53 | XMS_ITS | Encounter Summary ---
Author Organization [facility] Address [facility]3 [place] [address] Care Team Providers Care Consulting Hr Professional Name Role Phone Saul Marcelino MD Primary Care Provider [phone] None, Physician Primary Care Provider Unavailabl e Salu Marcelino MD Primary Care Provider [phone] Francia Hammonds MD Unavailable [phone] Andre Mccann MD Unavailable [phone] Ana Andersen MD Unavailable [phone] Vincent Sandra MD Unavailable [phone] Joan Wood MD Unavailable Lyudmila Bangura MD Unavailable Gloria Alatorre MD Unavailable Mony Zaldivar PharmD Unavailable Unavaila Shirley Barillas PharmD Unavailable Unavailable Anastacia Garces RN Unavailable Unavailable Tabatha Solorzano Unavailable Unavailable Ness Ortiz Unavailable Sarah Grisel Singh FUR POLISHER-WARP DYEING TENDER Unavailable [phone] Nannette Joshi RN Unavailable Unavailable Sylwia Lovelace LCSW Unavailable Unavailab Saul Kimball MD Unavailable Reason for Visit * Reason Onset Date Comments Hospital Follow-up 11/25/2023 Encounter Details Date Type Department Care Team (Late st Contact Info) Description 11/25/2023 Telephone [facility] - Cardiology [address] [facility], [facility] 1120 [place] [phone] Andrés Kaye MD [address] [facility] [address] [place] [address] Hospital Follow-up Social History Tobacco Use Types Packs/Day Years Used Date Smoking Tobacco: Every Day Cigarettes 0.2 60.8 Started: 1963 Smokeless Tobacco: Never Comments:Pack of [...] on file Legal Sex 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 SLOT ATTENDANT Gender Identity Not on file Sexual Orientation [...] and was advised to f.u with her assistant editor prior to being discharged Patient Call Back number: [phone] documented in this encounter Plan of Treatment Upcoming Encounters Date Type Department Care Team (Late st Contact Info) Description 03/16/2025 2:00 PM SLOT ATTENDANT Office Visit [facility] - Neurology [facility]5 [facility], [place] [address] Gary Virgen APRN-WARP DYEING TENDER [address] [facility] 1L [place] [address] 03/21/2025 11:00 AM SLOT ATTENDANT Office Visit [facility] - Sleep Services [address] [facility] [address] [place] [address] Maura Simmons APNP-WARP DYEING TENDER [address] [facility] [address] [place] [address] 05/25/2025 11:00 AM SLOT ATTENDANT Office Visit [facility] - Nephrology 1225 [facility], [place] [address] Francia Hammonds MD [address] [facility] 3L [place] [address] 06/07/2025 11:00 AM SLOT ATTENDANT Office Visit [facility] - Cardiology [address] [facility], [address] [place] [address] Andrés Kaye MD [address] [facility] [address] [place] [address] 09/13/2025 1:45 PM CDT Appointment [facility] CANCER CARE DRAWSTATION 3655 [facility], 2nd [place] [address] 09/13/2025 2:00 PM CDT Office Visit [facility] Group - Hematology/Oncology [address]5 [place] [phone] Aubree Thomas MD [address] [place] [address] documented as of this encounter Goals Goal [...] on filedocumented in this encounter Care Teams Consulting Hr Professional Relationship Specialty Start Date End Date Saul Marcelino MD [address] [place] [address] PCP - General Family Medicine 09/17/22 02/09/24 None, Physician [address]12 [place] [address] PCP - General 02/10/24 04/19/24 Saul Marcelino MD [address] [place] [address] PCP - General Family Medicine 04/20/24 Francia Hammonds MD [address] [facility] 3L [place] [address] Quilting Machine Helper Nephrology 11/24/24 Andre Mccann MD [address] [place] [address] Hematology and Oncology 11/24/24 Ana Andersen MD [address] [place] [address] Hematology and Oncology 11/24/24 Vincent Sandra MD [address] [place] [address] Ops Manager/Oncologis t Hematology and Oncology 11/24/24 Joan Wood MD [address] [place] [address] Ops Manager/Oncologis t Hematology and Oncology 11/24/24 Lyudmila Bangura MD [address] [place] [address] Physician Hematology and Oncology 11/24/24 Gloria Alatorre MD [address] [place] [phone] Physician Hematology and Oncology 11/24/24 Mony Zaldivar, PharmD 11/24/24 Shirley Barahona, PharmD Pharmacist 11/24/24 Anastacia Garces, RN Registered Nurse 11/24/24 Tabatha Solorzano 11/24/24 Ness Ortiz 11/24/24 Grisel Dobbins APRN-POP [address] [place] [phone] Nurse Practitioner Nurse Practitioner 11/24/24 Nannette Joshi, KIMO Registered Nurse 11/24/24 Sylwia Lovelace LCSW [address] [place] [address] Bb Shot Packer 11/24/24 Saul Marcelino MD [address] [place] [address] Family Medicine 01/05/25 documented as of this encounter
--- OUTSIDE RECORDS SUMMARY | 2025-02-07 16:53 | XMS_ITS | Encounter Summary ---
Author Organization [facility] Address [facility]3 [facility] [place] [address] Care Team Providers Care Chucking And Boring Machine Operator Name Role Phone Saul Marcelino MD Primary Care Provider [phone] Francia Hammonds MD Unavailable [phone] Andre Mccann MD Unavailable [phone] Ana Andersen MD Unavailable [phone] Vincent Sandra MD Unavailable Joan Wood MD Unavailable Lyudmila Bangura MD Unavailable Gloria Alatorre MD Unavailable Mony Zaldivar PharmD Unavailable Unavaila Shirley Barillas PharmD Unavailable Unavailable Anastacia Garces RN Unavailable Unavailable Tabatha Solorzano Unavailable Unavailable Ness Ortiz Unavailable Sarah Grisel Singh PHARMACOGNOSIST-RADIOLOGY EQUIPMENT SERVICER Unavailable [phone] Nannette Joshi RN Unavailable Unavailable Sylwia Lovelace LCSW Unavailable Unavailab Saul Kimball MD Unavailable Reason for Visit * Reason Onset Date Comments Med Question 10/04/2024 Encounter Details Date Type Department Care Team (Late st Contact Info) Description 10/04/2024 Telephone [facility] - Pulmonology [address] [facility], [place] [address] Kunal Lennon MD [address] [place] [address] Med Question Social History Tobacco Use Types [...] on file Legal Sex 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 MULE PACKER Gender Identity Not on file Sexual Orientation [...] st Contact Info) Description 03/16/2025 2:00 PM MULE PACKER Office Visit [facility] - Neurology [address] [place] [address], [place] [phone] Gary Virgen APRN-RADIOLOGY EQUIPMENT SERVICER [address] [place] [address] 03/21/2025 11:00 AM MULE PACKER Office Visit [facility] - Sleep Services [address] [facility] 550 [place] [address] Maura Simmons APNP-RADIOLOGY EQUIPMENT SERVICER [address] [facility] 550 [place] [address] 05/25/2025 11:00 AM MULE PACKER Office Visit [facility] - Nephrology [facility]5 [facility] [place] [address] Francia aHmmonds MD 1225 [facility] 3L [place] [address] 06/07/2025 11:00 AM MULE PACKER Office Visit [facility] - Cardiology 10[address] [facility], [address] [place] [phone] Andrés Kaye MD 1034 [facility] [address] [place] [address] 09/13/2025 1:45 PM CDT Appointment [facility]CER C[facility] DRAWSTATION 3655 [facility], 2nd [place] [address] 09/13/2025 2:00 PM CDT Office Visit [facility] - Hematology/Oncology 3655 [place] [address] Aubree Thomas MD 3655 [place] [address] documented as of this encounter Goals Goal [...] track( 2:48 PM CDT) No Rebecca De Jesus, [...] on filedocumented in this encounter Care Teams Chucking And Boring Machine Operator Relationship Specialty Start Date End Date Saul Marcelino MD [address] [place] [address] PCP - General Family Medicine 04/20/24 Francia Hammonds MD [address] [place] [address] 3 [place] [address] Regulatory Compliance Engineer Nephrology 11/24/24 Andre Mccann MD [address] [place] [phone] Hematology and Oncology 11/24/24 Ana Andersen MD [address] [place] [address] Hematology and Oncology 11/24/24 Vincent Sandra MD [address] [place] [address] Dredge Operator Supervisor/Oncologis t Hematology and Oncology 11/24/24 Joan Wood MD [address] [place] [address] Dredge Operator Supervisor/Oncologis t Hematology and Oncology 11/24/24 Lyudmila Bangura MD [address] [place] [address] Physician Hematology and Oncology 11/24/24 Gloria Alatorre MD [address] [place] [phone] Physician Hematology and Oncology 11/24/24 Mony Zaldivar, PharmD 11/24/24 Shirley Barahona, PharmD Pharmacist 11/24/24 Anastacia Garces, RN Registered Nurse 11/24/24 Tabatha Solorzano 11/24/24 Ness Ortiz 11/24/24 Grisel Dobbins, INDRA-RADIOLOGY EQUIPMENT SERVICER [address] [place] [phone] Nurse Practitioner Nurse Practitioner 11/24/24 Nannette Joshi, RN Registered Nurse 11/24/24 Sylwia Lovelace, [facility] 1011 [place] [address] Domestic Technician 11/24/24 Saul Marcelino MD [address] [place] [address] Family Medicine 01/05/25 documented as of this encounter
--- OUTSIDE RECORDS SUMMARY | 2025-02-07 16:53 | XMS_ITS | Encounter Summary ---
Author Organization [facility] Address [facility]3 [facility] [place] [address] Care Team Providers Care Calciminer Name Role Phone Dontae Min DO Primary Care Provider [phone] Timmy Baldwin MD Primary Care Provider [phone] Dontae Min DO Primary Care Provider [phone] Dontae Min DO Primary Care Provider [phone] Saul Marcelino MD Primary Care Provider [phone] None, Physician Primary Care Provider Unavailabl e Saul Marcelino MD Primary Care Provider [phone] Francia Hammonds MD Unavailable [phone] Andre Mccann MD Unavailable [phone] Ana Andersen MD Unavailable [phone] Vincent aSndra MD Unavailable Joan Wood MD Unavailable Lyudmila Bangura MD Unavailable Gloria Alatorre MD Unavailable Mony Zaldivar PharmD Unavailable Unavaila Shirley Barillas PharmD Unavailable Unavailable Anastacia Garces RN Unavailable Unavailable Tabatha Solorzano Unavailable Unavailable Ness Ortiz Unavailable Sarah Grisel Singh PAN PULLER-SLOPE RUNNER Unavailable Nannette Joshi RN Unavailable Unavailable Sylwia Lovelace LCSW Unavailable Unavailab Saul Kimball MD Unavailable Encounter Details Date Type Department Care Team ([facility] Contact Info) Description 04/17/2022 Ambulatory Consult [facility] 3L 1225 [facility], [place] [phone] Shelley Ortega, RN Social History Tobacco Use [...] on file Legal Sex 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 WATER TANKER DRIVER Gender Identity Not on file Sexual Orientation Not on file COVID-19 Exposure Response Date Recorded In the last 10 days, have yo u been in contact with someone who was confirmed or suspected to have Coronavirus/COVID-19? No / Unsure 04/10/2022 3:01 PM WATER TANKER DRIVER documented as of this encounter Plan of Treatment Upcoming Encounters Date Type Department Care Team (Late Contact Info) Description 03/16/2025 2:00 PM WATER TANKER DRIVER Office Visit [facility] - Neurology 1225 [facility], [place] [address] Gary Virgen PAN PULLER-SLOPE RUNNER [address] [place] [address] 03/21/2025 11:00 AM WATER TANKER DRIVER Office Visit [facility] - Sleep Services [address] [facility] [address] [place] [address] Maura Simmons, APNP-SLOPE RUNNER [address] [facility] [address] [place] [address] 05/25/2025 11:00 AM WATER TANKER DRIVER Office Visit [facility] - Nephrology 1225 [facility], [place] [address] Francia Hammonds MD 1225 [facility] 3L [place] [address] 06/07/2025 11:00 AM WATER TANKER DRIVER Office Visit [facility] - Cardiology [address] [facility], [address] [place] [address] Andrés Kaye MD 1034 [facility] [address] [place] [address] 09/13/2025 1:45 PM CDT Appointment [facility] CANCER CARE DRAWSTATION 3655 [facility], 2nd [place] [address] 09/13/2025 2:00 PM CDT Office Visit [facility] - Hematology/Oncology 3655 [place] [phone] Aubree Thomas MD 3655 [place] [address] documented as of this encounter Goals Goal [...] on filedocumented in this encounter Care Teams Calciminer Relationship Specialty Start Date End Date Dontae Min DO [address] [place] [address] PCP - General 06/15/19 05/11/22 [place] [address] [address] PCP - General 05/12/22 06/03/22 Dontae Min DO [address] [place] [address] PCP - General 06/04/22 06/09/22 Dontae Min DO [address] [place] [address] PCP - General 06/10/22 09/16/22 Saul Marcelino MD [address] [place] [address] PCP - General Family Medicine 09/17/22 02/09/24 None, Physician 1212 [place] [address] PCP - General 02/10/24 04/19/24 Saul Marcelino MD [address] [place] [address] PCP - General Family Medicine 04/20/24 Francia Hammonds MD [facility]5 [facility] 3[facility] [place] [address] Geophysical Laboratory Supervisor Nephrology 11/24/24 Andre Mccann MD 3655 [place] [address] Hematology and Oncology 11/24/24 Ana Andersen MD [address]5 [place] [address] Hematology and Oncology 11/24/24 Vincent Sandra MD [address]5 [place] [address] Propulsion Generator Repairer/Oncologis t Hematology and Oncology 11/24/24 Joan Wood MD [address] [place] [address] Propulsion Generator Repairer/Oncologis t Hematology and Oncology 11/24/24 Lyudmila Bangura MD [address] [address] Physician Hematology and Oncology 11/24/24 Gloria Alatorre MD [address]5 [place] [address] Physician Hematology and Oncology 11/24/24 Mony Zaldivar, PharmD 11/24/24 Shirley Barahona, PharmD Pharmacist 11/24/24 Anastacia Garces RN Registered Nurse 11/24/24 Tabatha Solorzano 11/24/24 Ness Ortiz 11/24/24 Grisel Dobbins APRN-SLOPE RUNNER [address] [place] [address] Nurse Practitioner Nurse Practitioner 11/24/24 Nannette Joshi, RN Registered Nurse 11/24/24 Sylwia Lovelace LCSW 3655 [place] [address] Auction Assistant 11/24/24 Saul Marcelino MD [address] [place] [address] Family Medicine 01/05/25 documented as of this encounter
--- OUTSIDE RECORDS SUMMARY | 2025-02-07 16:53 | XMS_ITS | Clinical Summary ---
Author Organization [facility] Medical Office Building A Address [address] [place] [address] Care Team Providers Care Linoleum Mechanic Name Role Phone Saul Marcelino MD Primary Care Provider [phone] Allergies Active Allergy Reactions Criticality Noted Date [...] artery disease of n ative artery of [place] heart with stable angina pectoris 09/17/2022 Nontoxic [...] 03/15/2020 Assessment & Plan (04/26/2020 3:09 PM CRUMB PACKER): Controlled with medication including Lasix CKD - continue medication per PCP Assessment & Plan (03/15/2020 3:58 PM CRUMB PACKER): Controlled with medication including Lasix CKD - continue medication per PCP Mixed hyperlipidemia 03/15/2020 Hypercalcemia 03/15/2020 Assessment & Plan (04/26/2020 3:09 PM CRUMB PACKER): Detected on labs on 03/09/20 Calcium of [...] functions Assessment & Plan (03/15/2020 3:57 PM CRUMB PACKER): Detected on recent labs on 03/09/20 Calcium [...] incisional 03/24/2011 Absence of both breasts 07/11/2009 Encounters Date Type Department Care Team Description 12/26/2024 Telephone [facility] Orthopedics and Sports Medicine [address] [place] [address] Yelitza Watters MA 12/16/2024 Orders Only [facility] Cardiology [address] [place] [address] Maury Peña MD from Last 3 Months Immunizations Immunization Administration Dates Next Due Pfizer [...] Date Smoking Tobacco: Every Day Cigarettes 1 60.8 Started: 1963 Smokeless Tobacco: Never Tobacco Cessation:Ready [...] on file Legal Sex Female 12:19 AM CRUMB PACKER Gender Identity Not on file Sexual [...] Lung Cancer Screening 08/13/2023 08/12/2022 Covid-19 Vaccine (5 - 2024-2 6 season) 2024 10/30/2021, 04/04/2021, 09/23/2020, Additional history exists Influenza Vaccine (#1) 2024 , 04/18/2019, 01/28/2017, Additional history exists Pneumococcal vaccine 65+ Completed 023, 02/15/2014, 02/21/2013 Procedures Procedure Name Priority Date/Time Associated Diagnosis Comments CARDIOLOGY DOCUMENT SCAN Routine 12/14/2024 9:49 AM CDT SCREENING MAMMOGRAM Routine 10/05/2012 1 :24 PM CDT from Last 3 Months or Most Recently Relevant to Health Maintenance Results * Cardiology Document Scan (12/14/2024 9:49 AM CDT) Anatomical Region Laterality Modality Other Maury Peña MD CARDIAC SERVICES PROC EDURES Final Result * Screening Mammogram (10/05/2012 1:24 PM CDT) Anatomical Region Laterality Modality Breast N/A Mammography 10/05/2012 1:24 PM CDT Narrative 10/05/2012 11:01 PM CDT MR Weber Mamm R Acc#: [id number] DATE OF EXAM: Oct 05 2012 Performed [...] - 08/07/2016 MR Weber Mamm R Acc#: [id number] DATE OF EXAM: Oct 05 2012 Performed [...] DR ALETA CARDONA Attending DR: ALETA CARDONA Historical Provider MD CH[facility]STENS[facility] MAMMO PROCEDURES Kathleen l Result from Last 3 Months or Most Recently Relevant to Health Maintenance Insurance [employer] MEDICARE [facility] Advance Directives For more information, please contact: [phone] * Full Code (Latest Code Status on File) Date Activated Date Inactivated Comments 11/28/2020 7:15 PM 11/29/2020 7:45 PM Care Teams Linoleum Mechanic Relationship Specialty Start Date End Date Saul Marcelino MD [address] [place] [address] PCP - General Family Practice 08/10/24
--- OUTSIDE RECORDS SUMMARY | 2025-02-07 16:53 | XMS_ITS | Encounter Summary ---
Author Organization [facility] Address [facility]3 [place] [address] Care Team Providers Care Director Cpg Name Role Phone Saul Marcelino MD Primary Care Provider [phone] None, Physician Primary Care Provider Unavailabl e Saul Marcelino MD Primary Care Provider [phone] Francia Hammonds MD Unavailable [phone] Andre Mccann MD Unavailable [phone] Ana Andersen MD Unavailable [phone] Vincent Sandra MD Unavailable Joan Wood MD Unavailable Lyudmila Bangura MD Unavailable Gloria Alatorre MD Unavailable Mony Zaldivar PharmD Unavailable Unavaila Shirley Barillas PharmD Unavailable Unavailable Anastacia Garces RN Unavailable Unavailable Tabatha Solorzano Unavailable Unavailable Ness Ortiz Unavailable Sarah Grisel Singh ROLL FINISHER-LINEN ROOM WORKER Unavailable [phone] Nannette Joshi RN Unavailable Unavailable Sylwia Lovelace LCSW Unavailable Unavailab Saul Kimball MD Unavailable Reason for Visit * Reason Onset Date Comments Update 08/17/2023 Encounter Details Date Type Department Care Team (Late st Contact Info) Description 08/17/2023 Telephone [facility] - Centralized Scheduling [address] [place] [address] Ness Burton, AuD [address] [place] [address] Update Social History Tobacco Use Types Packs/Day [...] on file Legal Sex 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 RUSSIAN HISTORY PROFESSOR Gender Identity Not on file Sexual Orientation Not on file Occupation Industry Job Start Date Job End Date 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 Yes 08/17/2023 9:15 AM Arleen Dee RN Is person blind or have seri ous difficulty seeing? No 08/17/2023 9:15 AM Arleen Dee RN Does person have serious difficulty walking/climbing stairs? Yes 08/17/2023 9:15 AM Arleen Dee RN Does person have difficulty dressing/bathing? No 08/17/2023 9:15 AM Arleen Dee RN Does person have difficulty doing errands alone? Yes 08/17/2023 9:15 AM Arleen Dee RN Does person have difficulty concentrating/remembering/making decisions? Yes 08/17/2023 9:15 AM Arleen Dee RN * Question Answer Date of Assessment Author [...] 08/17/2023 6:57 AM Arleen Dee RN * AUDIT-C Score Answer Date of Assessment Author 0 [...] be here tomorrow at 3:30pm. Her phone: [phone] documented in this encounter Plan of Treatment Upcoming Encounters Date Type Department Care Team (Late st Contact Info) Description 03/16/2025 2:00 PM RUSSIAN HISTORY PROFESSOR Office Visit [facility] - Neurology [address] [place] [address], [place] [address] Gary Virgen APRN-LINEN ROOM WORKER [facility]5 [facility] 1L [place] [address] 03/21/2025 11:00 AM RUSSIAN HISTORY PROFESSOR Office Visit [facility] - Sleep Services [address] [place] [address] 550 [place] [address] Maura Simmons APNP-LINEN ROOM WORKER [address] [place] [address] 550 [place] [address] 05/25/2025 11:00 AM RUSSIAN HISTORY PROFESSOR Office Visit [facility] Group - Nephrology [address] [place] [address], [place] [address] Francia Hammonds MD [facility]5 [facility] 3L [place] [address] 06/07/2025 11:00 AM RUSSIAN HISTORY PROFESSOR Office Visit [facility] - Cardiology [address] [place] [address], [facility] [address] [place] [address] Andrés Kaye MD [address] [place] [address] [address] [place] [facility] [place] [address] 09/13/2025 1:45 PM CDT Appointment [facility] CANCER CARE DRAWSTATION 3655 [facility], 2nd [place] [address] 09/13/2025 2:00 PM CDT Office Visit [facility] Group - Hematology/Oncology 3656 [place] [address] Aubree Thomas MD [address] [place] [address] documented as of this encounter [...] on filedocumented in this encounter Care Teams Director Cpg Relationship Specialty Start Date End Date Saul Marcelino MD [address] [place] [address] PCP - General Family Medicine 09/17/22 02/09/24 None, Physician 1212 [place] [address] PCP - General 02/10/24 04/19/24 Saul Marcelino MD [address] [place] [phone] PCP - General Family Medicine 04/20/24 Francia Hammonds MD [address] [place] [address] 3 [place] [address] Health And Safety Coordinator Nephrology 11/24/24 Andre Mccann MD 3651 [place] [address] Hematology and Oncology 11/24/24 [place] [address] [place] [address] Hematology and Oncology 11/24/24 Vincent Sandra MD [address] [place] [address] Pediatric Dental Assistant/Oncologis t Hematology and Oncology 11/24/24 Joan Wood MD [address] [place] [address] Pediatric Dental Assistant/Oncologis t Hematology and Oncology 11/24/24 Lyudmila Bangura MD [address] [address] Physician Hematology and Oncology 11/24/24 Gloria Alatorer MD [address] [place] [address] Physician Hematology and Oncology 11/24/24 Mony Zaldivar, PharmD 11/24/24 Shirley Barahona, PharmD Pharmacist 11/24/24 Anastacia Garces RN Registered Nurse 11/24/24 Tabatha Solorzano 11/24/24 Ness Ortiz 11/24/24 Grisel Dobbins, ROLL FINISHER-LINEN ROOM WORKER [address] [place] [address] Nurse Practitioner Nurse Practitioner 11/24/24 Nannette Joshi, RN Registered Nurse 11/24/24 Sylwia Lovelace, CAREER SERVICES DIRECTOR [address] [place] [address] Tetryl Blender Operator 11/24/24 Saul Marcelino MD [address] [place] [address] Family Medicine 01/05/25 documented as of this encounter
--- OUTSIDE RECORDS SUMMARY | 2025-02-07 16:53 | XMS_ITS | Encounter Summary ---
Author Organization [facility] Address [facility]3 [facility] [place] [address] Care Team Providers Care Feather Renovator Name Role Phone Saul Marcelino MD Primary Care Provider [phone] Francia Hammonds MD Unavailable [phone] Andre Mccann MD Unavailable [phone] Ana Andersen MD Unavailable [phone] Vincent Sandra MD Unavailable Joan Wood MD Unavailable Lyudmila Bangura MD Unavailable Gloria Alatorre MD Unavailable Mony Zaldivar PharmD Unavailable Unavaila Shirley Barillas PharmD Unavailable Unavailable Anastacia Garces RN Unavailable Unavailable Tabatha Solorzano Unavailable Unavailable Ness Ortiz Unavailable Sarah Grisel Singh LICENSED ARCHITECT-FOOD DEMONSTRATOR Unavailable [phone] Nannette Joshi RN Unavailable Unavailable Sylwia Lovelace TYPEWRITER ALIGNER Unavailable Unavailab Saul Kimball MD Unavailable Reason for Visit * Reason Onset Date Comments MEDICATION REFILL 10/04/2024 Encounter Details Date Type Department Care Team (Late st Contact Info) Description 10/04/2024 Refill [facility] - Pulmonology [address] [facility], [place] [address] Kunal Lennon MD [address] [place] [address] MEDICATION REFILL Social History Tobacco Use Types [...] on file Legal Sex 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 BAG TESTER Gender Identity Not on file Sexual Orientation [...] st Contact Info) Description 03/16/2025 2:00 PM BAG TESTER Office Visit [facility] - Neurology [address] [facility], [place] [phone] Gary Virgen APRN-POP [address] [place] [address] 03/21/2025 11:00 AM BAG TESTER Office Visit [facility] - Sleep Services [address] [facility] [address] [place] [address] Maura Simmons APNP-FOOD DEMONSTRATOR [address] [facility] [address] [place] [phone] 05/25/2025 11:00 AM BAG TESTER Office Visit [facility] - Nephrology [address] [facility], [place] [address] Francia Hammonds MD 1225 [facility] 3L [place] [address] 06/07/2025 11:00 AM BAG TESTER Office Visit [facility] - Cardiology [address] [facility], [facility] 1120 [place] [address] Andrés Kaye MD 1034 [facility] [address] [place] [address] 09/13/2025 1:45 PM CDT Appointment [facility] CANCER CARE DRAWSTATION 3655 [facility], 2nd [place] [address] 09/13/2025 2:00 PM CDT Office Visit [facility] - Hematology/Oncology 3655 [place] [address] Aubree Thomas MD [address]5 [place] [address] documented as of this encounter Goals Goal Patient Goal Type Associated Problems Recent Progress Patient-Stated? Author Medication Management General On track( 2:47 PM CDT) No Radha Bellamy, KIMO [...] asthma documented in this encounter Care Teams Feather Renovator Relationship Specialty Start Date End Date Saul Marcelino MD [address] [place] [phone] PCP - General Family Medicine 04/20/24 Francia Hammonds MD [address] [place] [address] [address] [place] [address] Manager Warehouse Nephrology 11/24/24 Andre Mccann MD [address] [place] [address] Hematology and Oncology 11/24/24 Ana Andersen MD [address] [place] [address] Hematology and Oncology 11/24/24 Vincent Sandra MD [address] [place] [address] Chute Loader/Oncologis t Hematology and Oncology 11/24/24 Joan Wood MD [address] [place] [address] Chute Loader/Oncologis t Hematology and Oncology 11/24/24 Lyudmila Bangura MD [address] [place] [address] Physician Hematology and Oncology 11/24/24 Gloria Alatorre MD 3650 [place] [address] Physician Hematology and Oncology 11/24/24 Mony Zaldivar, PharmD 11/24/24 Shirley Barahona, GodwinD Pharmacist 11/24/24 Anastacia Garces RN Registered Nurse 11/24/24 Tabatha Solorzano 11/24/24 Ness Ortiz 11/24/24 Grisel Dobbins, INDRA-FOOD DEMONSTRATOR [address] [place] [address] Nurse Practitioner Nurse Practitioner 11/24/24 Nannette Joshi, RN Registered Nurse 11/24/24 Sylwia Lovelace, [facility] [address] [place] [address] [place] 11/24/24 Saul Marcelino MD [address] [place] [address] Family Medicine 01/05/25 documented as of this encounter
--- OUTSIDE RECORDS SUMMARY | 2025-02-07 16:54 | XMS_ITS | Encounter Summary ---
Author Organization [facility] Address [facility]3 [place] [address] Care Team Providers Care Wetlands Conservation Laborer Name Role Phone Saul Marcelino MD Primary Care Provider [phone] Francia Hammonds MD Unavailable [phone] Andre Mccann MD Unavailable [phone] Ana Andersen MD Unavailable [phone] Vincent Sandra MD Unavailable Joan Wood MD Unavailable Lyudmila Bangura MD Unavailable Gloria Alatorre MD Unavailable Mony Zaldivar PharmD Unavailable Unavaila Shirley Barillas PharmD Unavailable Unavailable Anastacia Garces RN Unavailable Unavailable Tabatha Solorzano Unavailable Unavailable Ness Ortiz Unavailable Sarah Grisel Singh INTERMEDIATE CARD TENDER-MANAGED CARE DIRECTOR Unavailable [phone] Nannette Joshi RN Unavailable Unavailable Sylwia Lovelace RETURN AGENT AIRPORT Unavailable Unavailab Saul Kimball MD Unavailable Encounter Details Date Type Department Care Team (Late st Contact Info) Description 01/18/2025 Lab Requisition [facility] - Pathology Lab [address] [place] [phone] Francia Hammonds MD [address] [place] [address] Chronic kidney disease, stage 3 unspecified (HCC) Social History Tobacco Use Types Packs/Day Years Used Date Smoking Tobacco: Former Cigarettes 0.5 60.8 S tarted: 1965 Smokeless Tobacco: Current Comments:Quit cigs 4 months [...] on file Legal Sex 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 CAUSTIC ROOM ATTENDANT Gender Identity Not on file Sexual Orientation Not on file Occupation Industry Job Start Date Job End Date 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 [place] 1L [place] [address] 03/21/2025 11:00 AM CAUSTIC ROOM ATTENDANT Office Visit [facility] - Sleep Services [facility] [address] Maura Simmons APELISSA-MANAGED CARE DIRECTOR [address] [place] [address] 05/25/2025 11:00 AM CAUSTIC ROOM ATTENDANT Office Visit [facility] - Nephrology [address] [place] [address], [place] [address] Francia Hammonds MD [address] [place] [address] 3L [place] [address] 06/07/2025 11:00 AM CAUSTIC ROOM ATTENDANT Office Visit [facility] - Cardiology [facility]4 [facility], [address] [address] Andrés Kaye MD [address] [place] [address] [place] [address] 09/13/2025 1:45 PM CDT Appointment [facility] CANCER CARE DRAWSTATION 3655 [facility], 2nd [place] [address] 09/13/2025 2:00 PM CDT Office Visit [facility] - Hematology/Oncology 365[address] [place] [address] Aubree Thomas MD 15[address] [place] [address] documented as of this encounter [...] the bathroom documented as of this encounter Procedures Procedure Name Priority Date/Time Associated Diagnosis Comments ELECTRON MICROSCOPY ([facility]) Routine 01/16/2025 10:40 AM CDT Chronic kidney disease, stage 3 unspecified (HCC) documented in this encounter Results * ELECTRON MICROSCOPY (SLU) (01/16/2025 10:40 AM CDT) Case Report Gynecologic Cytology Report Case: [id number] Authorizing Provider: Francia Hammonds MD Collected: 01/16/2025 10:40 AM Ordering Location: [facility] - Received: 01/18/2025 08:40 AM Pathology Lab First Screen: Beau Herring Specimen: EM RENAL - SLU, Kidney, Left, One piece approx. 2 mm long. 01/31/2025 3:50 PM CDT [facility] Electron Microscopy Technical Summary # of Block(s) cut: 4 # of Glomeruli found: 2 # of Glomeruli photographed: 1 01/31/2025 3:50 PM CDT [facility] PATH[facility]Y LAB Pathologist Location at [facility] 01/31/2025 3:50 PM CDT [facility] PATH[facility]Y LAB Embedded Images - EM 01/31/2025 3:50 PM CDT [facility] PATHOLOGY LAB Pathology/Cytolo gy (Kidney, Left) 01/16/2025 10:40 AM CDT 01/18/2025 8:40 AM CDT Francia Hammonds MD LAB - PATHOLOGY/CYTOLOGY ORDERA BLES Final Result [facility] PATHOLOGY LAB [address] [phone] documented in this encounter Visit Diagnoses Diagnosis Chronic kidney disease, stage 3 unspecified (HCC) documented in this encounter Care Teams Wetlands Conservation Laborer Relationship Specialty Start Date End Date Saul Marcelino MD [address] [place] [phone] PCP - General Family Medicine 04/20/24 Francia Hammonds MD [address] [place] [address] 3L [place] [address] Membership Counselor Nephrology 11/24/24 Andre Mccann MD [address] [place] [phone] Hematology and Oncology 11/24/24 Ana Andersen MD [address] [place] [address] Hematology and Oncology 11/24/24 Vincent Sandra MD [address] [place] [address] Banquet Food Server/Oncologis t Hematology and Oncology 11/24/24 Joan Wood MD [address] [place] [address] Banquet Food Server/Oncologis t Hematology and Oncology 11/24/24 Lyudmila Bangura MD [address] [address] Physician Hematology and Oncology 11/24/24 Gloria Alatorre MD [address] [place] [address] Physician Hematology and Oncology 11/24/24 Mony Zaldivar, PharmD 11/24/24 Shirley Barahona, PharmD Pharmacist 11/24/24 Anastacia Garces RN Registered Nurse 11/24/24 Tabatha Solorzano 11/24/24 Ness Ortiz 11/24/24 Grisel Dobbins, INTERMEDIATE CARD TENDER-MANAGED CARE DIRECTOR [address] [place] [address] Nurse Practitioner Nurse Practitioner 11/24/24 Nannette Joshi, RN Registered Nurse 11/24/24 Sylwia Lovelace LCSW 3655 [place] [address] Transplant Worker 11/24/24 Saul Marcelino MD [address] [place] [address] Family Medicine 01/05/25 documented as of this encounter
--- OUTSIDE RECORDS SUMMARY | 2025-02-07 16:54 | XMS_ITS | Data Portability ---
Author Organization [facility] [place] Address [address] [place] [address] Care Team Providers Care Fish Agent Name Role Phone TOSHIA MIN Primary Care [...] Breast Cancer Physician consult requested 2020 021 [email or web address] Mabel Calderon MD, [address] [place], [address], 15:38:20 Procedures None recorded. Surgeries None recorded. Imaging None recorded. Medication Orders None recorded. Patient TargetsNo targets recorded. Patient InstructionsNo instructions recorded. Reason for Referral [facility] Breast Cancer Ph ysician consult requested Referring Physician: Gracie Thornton, DECK ENGINEER, Encounter Date: 07/20/2020 Procedures Surgical History Date Name Laterality Status Provider Name and Address Organization Details Recorded Time 08/15/19 16 Date of Last Mammogram completed [facility] 07/20/2020 15:04:06 04/06/19 15 biopsy of soft tissue of upper arm, superficial completed [facility] 07/20/2020 15:11:44 04/06/19 excision of bilateral breasts completed [facility] 07/20/2020 15:13:13 04/06/19 00 insertion of hearing implant in external ear completed [facility] 07/20/2020 15:12:56 04/06/18 96 Total Hysterectomy completed [facility] 07/20/2020 15:12:17 cholecystectomy completed [facility] 07/20/2020 15:11:55 Imaging Results None recorded. Procedure Notes None recorded. Medical Equipment None Reported. Allergies Allergen ID Allergen Name Allergen Category Reaction Reaction Severity Criticality Documentation Date Start Date Code Code System Note Provider Name and Address Organization Details Recorded Time 70900 fluoxetin e medicatio n Not available Not available Not available 07/20/2020 4493 RxNorm [facility] 14:59:44 37905 tetanus and diphtheri a toxoids Not available Not available Not available Not available 07/20/2020 [facility] 14:59:51 Medications Name Sig Start Date [...] Body mass index (BMI) Body weight Systolic And Diastolic Provider Name and Address Organization Details Last Updated DateTime 07/20/2020 154.94 cm 38.8 kg/m2 54734.59 g 163/84 mm[Hg] Brianne Suarez [facility] 07/20/2020 14:54:37 Social History Question Answer Notes LastModified by Organizat ion Details LastModified Time Tobacco Smoking Status Current Every Day Smoker Brianne Suarez [facility] 07/20/2020 15:11:08 Are You Blind Or Do You Have [...] PPD Information not available 07/20/2020 Do You Use Sunscreen Routinely? Yes Information not available 07/20/2020 How Many Years Have You Smoked Tobacco? 20 Information not available 07/20/2020 Sex: Unknown Functional Status Question Answer Note LastModified by Organizat ion Details LastModified Time Do you use any illicit or recreational drugs? No Information not available 07/20/2020 What is your level of alcohol consumption? None Information not available 07/20/2020 Are you able to walk independently without assistance or assistive devices? YESWOREST Information not available 07/20/2020 What is your exercise level? None Information not available 07/20/2020 Mental Status Question Answer Note LastModified by Organization D etails LastModified Time Do you feel stressed (tense, restless, nervous, or anxious, or unable to sleep at night)? [id number] Information not available 07/20/2020 Family History Relationship Description Onset Age of this Age Resolved Age Notes LastModified by Organization Details LastModified Time Sister Malignant neoplasm of breast Not available 2020 15:08:30 Sister Malignant neoplasm of breast Not available 2020 15:08:39 Sister [...] Diagnosis SNOMED-CT Code Diagnosis ICD10 Code Diagnosis IMO Codes Diagnosis Note [id number] Gracie Thornton , [facility] [address] [address] 07/20/2020 14:31:05 07/20/2020 15:38:20 Gynecologic examination 84209318 Z01.419 Take Calcium with Vitamin D 12-1500mg daily. Do monthly self breast exams. It is advised to get annual flu shot in the fall and she could obtain at [facility] or [facility] care clinic. If you haven't received the [...] ago. Smoker Likely diagnosed with cancer in 2015 vs 2012 b/c we have a mammo on file [facility] in [facility]. UTD PCP Dr. Jonas Min per pt History of malignant neoplasm of breast 135205556 Z85.3 MUST be set up with a new breast cancer specialist prefers [facility]. She has history of breast cancer and has not adequately followed up for additional imaging since her oncologist moved. Likely needs MRI. Her previous doctors were at [facility] but she states that they refused to [...] Concerns Section Related Observation LastModified by Organization Андрей vasquez LastModified Time None Recorded Concern Status LastModified by Organization Details LastModified Time None Recorded Advance Directives Directive None Recorded Payers Insurance Date Sequence Insurance Name Policy Number Policy Nassar Covered Member ID Nassar Member ID Guarantor Name 07/20/2020 1 [facility] - DOS PRIOR TO 2020 (MEDICAID REPLACEMENT - HMO) Eduarda Wall [id number] Yasmine Wall Notes Date Note Type Note Provider Name and Address Organization Details Recorded Time 1 text/html Annual Company Marker Post-MenopausalReported by PatientGenitourinary symptomsFor menopausal symptoms, patient reportsno menopausal symptomsandnormal vaginal lubrication. For vaginal bleeding, patient reportshistory of menopause having occurredandno history of post menopausal bleeding. For urinary symptoms, patient reportsno hematuria,no incontinence,no nocturia, andno urinary frequency. For vulva, patient reportsno genital lesionandno vulvar atrophy. For vagina, patient reportsnormal vaginal dischargeandno vaginal atrophy.Breast symptomsFor breast, patient reportsno breast lump,no nipple discharge, andno breast pain(hx breast cancer with radiation).Psychological symptomsFor sexual complaints, patient reportsno sexual complaints. For psychological symptoms, patient reportsno depressionandno anxiety.Preventative measuresFor preventive measures, patient reportsencourage regular mammograms starting age 40,encourage self breast examination,encourage regular exercise,encourage no tobacco use,history of recent colonoscopy, andneeds to schedule bone density (managed by pcp per pt dr. jonas min). Gracie Thornton, [facility]- [address], [place], [address], [facility] [place] 07/20/2020 15:29:59 OBGyn Episode Ob Episode Information Episode Created Date Number of Fetuses Patient Bloodtype Patient rh Status Prepregnancy Weight lbs Domestic Partner Domestic Partner Phone Father Name Water Supervisor Status 07/21/19 21 1 CLOSED Fetus Data [...] Domestic Partner Domestic Partner Phone Father Name Water Supervisor Status 07/21/19 21 1 CLOSED Fetus Data [...]
--- OUTSIDE RECORDS SUMMARY | 2025-02-07 16:54 | XMS_ITS | Encounter Summary ---
Author Organization [facility] Address [facility]3 [facility] [place] [address] Care Team Providers Care Hospice Nurse Name Role Phone Timmy Baldwin MD Primary Care Provider [phone] Dontae Min DO Primary Care Provider [phone] Dontae Min DO Primary Care Provider [phone] Saul Marcelino MD Primary Care Provider [phone] None, Physician Primary Care Provider Unavailabl e Saul Marcelino MD Primary Care Provider [phone] Francia Hammonds MD Unavailable [phone] Andre Mccann MD Unavailable [phone] Ana Andersen MD Unavailable [phone] Vincent Sandra MD Unavailable [phone] Joan Wood MD Unavailable Lyudmila Bangura MD Unavailable Gloria Alatorre MD Unavailable Mony Zaldivar PharmD Unavailable Unavaila Shirley Barillas PharmD Unavailable Unavailable Anastacia Garces RN Unavailable Unavailable Tabatha Solorzano Unavailable Unavailable Ness Ortiz Unavailable Sarah Grisel Singh TWILL CUTTER-VP SECURITIES Unavailable Nannette Joshi RN Unavailable Unavailable Sylwia LovelaceW Unavailable Unavailab Saul Kimball MD Unavailable Encounter Details Date Type Department Care Team (Latest Contact Info) Description 05/14/2022 Ambulatory Consult [facility] 3L [address] [facility], [place] [phone] Shelley Ortega, KIMO Cystadenoma, hepatobiliary ; Cystic [...] on file Legal Sex 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 No / Unsure 04/24/2022 1:12 PM SATELLITE DISH TECHNICIAN documented as of this encounter Plan of Treatment Upcoming Encounters Date Type Department Care Team (Late st Contact Info) Description 03/16/2025 2:00 PM SATELLITE DISH TECHNICIAN Office Visit [facility] - Neurology [address] [facility], [place] [address] Gary Virgen APRN-VP SECURITIES [address] [place] [phone] 03/21/2025 11:00 AM SATELLITE DISH TECHNICIAN Office Visit [facility] - Sleep Services [address] [facility] [address] [place] [address] Maura Simmons APNP-VP SECURITIES [address] [facility] [address] [place] [address] 05/25/2025 11:00 AM SATELLITE DISH TECHNICIAN Office Visit [facility] - Nephrology [address] [facility], [place] [address] Francia Hammonds MD [address] [facility] 3L [place] [address] 06/07/2025 11:00 AM SATELLITE DISH TECHNICIAN Office Visit [facility] - Cardiology [address] [facility], [address] [place] [address] Andrés Kaye MD [address] [facility] [address] [facility] [place] [address] 09/13/2025 1:45 PM CDT Appointment [facility] CANCER CARE DRAWSTATION 3655 [facility], 2nd [place] [address] 09/13/2025 2:00 PM CDT Office Visit [facility] - Hematology/Oncology [address] [place] [address] Aubree Thomas MD [address] [place] [address] documented as of this encounter Goals Goal [...] (HCC) documented in this encounter Care Teams Hospice Nurse Relationship Specialty [place] [address] [facility] [address] [place] [address] PCP - General 05/12/22 06/03/22 Dontae Min DO [address] [place] [address] PCP - General 06/04/22 06/09/22 Dontae Min DO [address] [place] [address] PCP - General 06/10/22 09/16/22 Saul Marcelino MD [address] [place] [address] PCP - General Family Medicine 09/17/22 02/09/24 None, Physician [address] [place] [address] PCP - General 02/10/24 04/19/24 Saul Marcelino MD [address] [place] [address] PCP - General Family Medicine 04/20/24 Francia Hammonds MD 1225 [facility] 3[facility] [place] [address] Senior Informatica Developer Nephrology 11/24/24 Andre Mccann MD [address] [place] [phone] Hematology and Oncology 11/24/24 Ana Andersen MD [address] [place] [address] Hematology and Oncology 11/24/24 Vincent Sandra MD [address] [place] [address] Engineer Operations And Maintenance/Oncologis t Hematology and Oncology 11/24/24 Joan Wood MD [address] [place] [address] Engineer Operations And Maintenance/Oncologis t Hematology and Oncology 11/24/24 Lyudmila Bangura MD [address] [address] Physician Hematology and Oncology 11/24/24 Gloria Alatorre MD [address] [place] [address] Physician Hematology and Oncology 11/24/24 Mony Zaldivar, PharmD 11/24/24 Shirley Barahona, PharmD Pharmacist 11/24/24 Anastacia Garces RN Registered Nurse 11/24/24 Tabatha Solorzano 11/24/24 Ness Ortiz 11/24/24 Grisel Dobbins APRN-VP SECURITIES [address] [place] [address] Nurse Practitioner Nurse Practitioner 11/24/24 Nannette Joshi, RN Registered Nurse 11/24/24 Sylwia Lovelace LCSW [address] [place] [address] Band Ripsaw Operator 11/24/24 Saul Marcelino MD [address] [place] [address] Family Medicine 01/05/25 documented as of this encounter
--- OUTSIDE RECORDS SUMMARY | 2025-02-07 16:54 | XMS_ITS | Encounter Summary ---
Author Organization [facility] Address [facility] [address] Care Team Providers Care Lime Kiln And Recausticizing Operator Name Role Phone Saul Marcelino MD Primary Care Provider [phone] None, Physician Primary Care Provider Unavailabl e Saul Marcelino MD Primary Care Provider [phone] Francia Hammonds MD Unavailable [phone] Andre Mccann MD Unavailable [phone] Ana Andersen MD Unavailable [phone] Vincent Sandra MD Unavailable Joan Wood MD Unavailable Lyudmila Bangura MD Unavailable Gloria Alatorre MD Unavailable Mony Zaldivar PharmD Unavailable Unavaila Shirley Barillas PharmD Unavailable Unavailable Anastacia Garces RN Unavailable Unavailable Tabatha Solorzano Unavailable Unavailable Ness Ortiz Unavailable Sarah Grisel Singh STUDIO MUSICIAN-SUPERVISOR SHOP Unavailable [phone] Nannette Joshi RN Unavailable Unavailable Sylwia LovelaceW Unavailable Unavailab Saul Kimball MD Unavailable Encounter Details Date Type Department Care Team (Late st Contact Info) Description 07/22/2023 Telephone [facility] [address] [facility], [place] [address] Taylor Perry MD Social History Tobacco Use Types Packs/Day Years Used Date Smoking Tobacco: Former Cigarettes 0.2 60.8 S tarted: 1965 Smokeless Tobacco: Never Comments:Pack [...] on file Legal 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 Callback number is [phone] documented in this encounter Plan of Treatment Upcoming Encounters Date Type Department Care Team (Late st Contact Info) Description 03/16/2025 2:00 PM PURCHASER AUTOMOTIVE PARTS Office Visit [facility] [address] [place] [address], [place] [address] Gary Virgen APRN-SUPERVISOR SHOP [address] [facility] 1L [place] [phone] 03/21/2025 11:00 AM PURCHASER AUTOMOTIVE PARTS [facility] [address] [facility] [address] [place] [address] Maura Simmons APNP-SUPERVISOR SHOP [address] [facility] [address] [place] [address] 05/25/2025 11:00 AM PURCHASER AUTOMOTIVE PARTS Office Visit [facility] - Nephrology [address] [facility], [place] [address] Francia Hammonds MD [address] [facility] 3L [place] [address] 06/07/2025 11:00 AM PURCHASER AUTOMOTIVE PARTS [facility] [address] [facility], [address] [place] [address] Andrés Kaye MD [address] [facility] [address] [place] [address] 09/13/2025 1:45 PM CDT Appointment [facility] [address] [facility], 2nd [place] [address] 09/13/2025 2:00 PM CDT Office Visit [facility] - Hematology/Oncology [address] [place] [phone] Aubree Thomas MD [address] [place] [phone] documented as of this encounter Goals Goal Patient Goal Type Associated Problems Recent Progress Patient-Stated? Author Medication Management General On track( 025 2:47 PM CDT) Radha De La Fuente, KIMO Note: Expected end date: Ongoing Interventions: Take all medications as prescribed Let your doctor know right away about any changes in your medications Make sure to request a refill of your medication at least one week prior to your last dose documented as of this encounter Visit Diagnoses Not on filedocumented in this encounter Care Teams Lime Kiln And Recausticizing Operator Relationship Specialty Start Date End Date Saul Marcelino MD [address] [place] [phone] PCP - General Family Medicine 09/17/22 02/09/24 None, Physician [facility] [place] [address] PCP - General 02/10/24 04/19/24 Saul Marcelino MD [address] [place] [address] PCP - General Family Medicine 04/20/24 Francia Hammonds MD [address] [place] [address] [address] [place] [address] Physiognomist Nephrology 11/24/24 [place] [address] [place] [address] Hematology and Oncology 11/24/24 Ana Andersen MD [address] [place] [address] Hematology and Oncology 11/24/24 Vincent Sandra MD [address] [place] [address] Appeals Analyst/Oncologis t Hematology and Oncology 11/24/24 Joan Wood MD [address] [place] [address] Appeals Analyst/Oncologis t Hematology and Oncology 11/24/24 Lyudmila Bangura MD [address] [place] [address] Physician Hematology and Oncology 11/24/24 Gloria Alatorre MD [address] [place] [phone] Physician Hematology and Oncology 11/24/24 Mony Zaldivar, PharmD 11/24/24 Shirley Barahona, PharmD Pharmacist 11/24/24 Anastacia Garces, RN Registered Nurse 11/24/24 Tabatha Solorzano 11/24/24 Ness Ortiz 11/24/24 Grisel Dobbins, STUDIO MUSICIAN-SUPERVISOR SHOP [facility] [place] [phone] Nurse Practitioner Nurse Practitioner 11/24/24 Nannette Joshi, RN Registered Nurse 11/24/24 Sylwia Lovelace LCSW [address] [place] [address] Substation Operator Conversion 11/24/24 Saul Marcelino MD [address] [place], [place] [phone] Family Medicine 01/05/25 documented as of this encounter
--- OUTSIDE RECORDS SUMMARY | 2025-02-07 16:54 | XMS_ITS | Patient Health Record ---
Author Organization [email or web address] [employer] Address [address] [place] [address] Care Team Providers Care Senior Licensing Manager Name Role Phone Saul Marcelino MD Primary Care Provider Daniele Olsen Unavailable [phone] Allergies Allergen (clinical drug ingredient) Drug/Non Drug [...] a day; Duration: 90 days 02/01/2025 Active Aspirin 81 MG Capsule Oral *Pick strength-form from [email or web address] for eRX* 07/31/2023 Active Albuterol Sulfate 1.25 MG/3ML Nebulization Solution Inhalation 07/31/2023 Active buPROPion HCl ER (SR) 150 MG Tablet Extended Release 12 Hour 1 tablet Orally twice a day; Duration: 30 days take in the morning and afternoon 06/23/2024 Active Loratadine 10 MG Tablet Oral 07/31/2023 Active rOPINIRole HCl 0.25 MG Tablet Oral; Duration: 90 Days Active traZODone HCl 100 MG Tablet 1 tablet at bedtime Oral Once a day; Duration: 90 days As needed 02/01/2025 Active Levalbuterol HCl 1.25 MG/3ML Nebulization Solution Inhalation 07/31/2023 Active Valsartan 160 MG Tablet Oral 07/31/2023 Active Ingrezza 80 MG Capsule 1 capsule Orally Once a day; Duration: 30 days 02/01/2025 Active Meclizine HCl 25 MG Tablet Oral 07/31/2023 Active Amantadine HCl 100 MG Capsule Oral 07/31/2023 Active Carvedilol 25 MG Tablet Oral 07/31/2023 Active Trelegy Ellipta 100-62.5-25 mcg Aerosol Powder Breath Activated Inhalation *Pick strength-form from [employer] for eRX* 07/31/2023 Active CHOLECALCIFEROL (VITAMIN D3) 25 MCG (1,000 UNIT) CAPSULE *Reorder from [email or web address] for eRx and Interaction Alerts* 07/31/2023 Active Naproxen 500 MG Tablet Oral 07/31/2023 Active HYDROcodone-Acetaminoph en 10-325 MG Tablet Oral 07/31/2023 Active Doxazosin Mesylate 4 MG Tablet Oral 07/31/2023 Active HYDROcodone-Acetaminoph en 5-325 MG Tablet Oral 07/31/2023 Active Varenicline Tartrate(Continue) 1 MG Tablet Oral *Reorder from [email or web address] for eRx and Interaction Alerts* 07/31/2023 Active Ondansetron HCl 4 MG Tablet Oral 07/31/2023 Active amLODIPine Besylate 10 MG Tablet Oral 07/31/2023 Active ProAir HFA 108 (90 Base) MCG/ACT Aerosol Solution Inhalation 07/31/2023 Active Immunizations Vaccine Route Administration Date [...] W/U Status Risk Notes Problem Tobacco user (632455944) Nicotine dependence, cigarettes, uncomplicated (F17.210) 4 Active confirmed Problem Mild recurrent major depression (70008313) Major depressive disorder, recurrent, mild (F33.0) 4 Active confirmed Problem Drug-induced tardive dystonia (555432097) Drug induced subacute dyskinesia (G24.01) 4 Active confirmed Problem Insomnia (236874998) Other insomnia (G47.09) 4 Active confirmed Problem Chronic obstructive pulmonary disease (39364640) Chronic obstructive pulmonary disease, unspecified (J44.9) 4 Active confirmed Problem Chronic kidney disease stage 3 (disorder) (805077858) Chronic kidney disease, stage 3 unspecified (N18.30) 4 Active confirmed Vital Signs Heart Rate 65 /min 02/01/2025 Blood pressure diastolic 75 mm Hg 02/01/2025 Height-cm 154.94 cm 02/01/2025 Weight-kg 77.11 kg 02/01/2025 Height 61.00 in 02/01/2025 Blood pressure systolic 130 mm Hg 02/01/2025 Weight 170 lbs 02/01/2025 BMI 32.12 kg/m2 02/01/2025 Encounters Encounter Location Date Provider Diagnosis [facility] [address] [address] 02/01/2025 Daniele Vasquez Major depressive disorder, recurrent, mild F33.0 ; Other insomnia G47.09 ; Nicotine use Z72.0 ; Drug induced subacute dyskinesia G24.01 ; Chronic kidney disease, stage 3 unspecified N18.30 ; Nicotine dependence, cigarettes, uncomplicated F17.210 and Chronic obstructive pulmonary disease, unspecified J44.9 [place] [address] [facility] [address] [place] [address] 02/09/2024 Danieleparth Dunnoza Chronic kidney disea se, stage 3 unspecified N18.30 ; Major depressive disorder, recurrent, mild F33.0 ; Nicotine dependence, cigarettes, uncomplicated F17.210 ; Chronic obstructive pulmonary disease, unspecified J44.9 ; Other insomnia G47.09 and Drug induced subacute dyskinesia G24.01 [place] [address] [facility] [address] [place] [address] 03/09/2024 Danieleparth Dunnoza Chronic kidney disea se, stage 3 unspecified N18.30 ; Major depressive disorder, recurrent, mild F33.0 ; Nicotine dependence, cigarettes, uncomplicated F17.210 ; Chronic obstructive pulmonary disease, unspecified J44.9 ; Other insomnia G47.09 and Drug induced subacute dyskinesia G24.01 [place] [address] [facility] [address] [place] [address] 06/07/2024 Daniele Vasquez [place] [address] [facility] [address] [place] [address] 06/23/2024 Daniele Vasquez Major depressive disorder, recurrent, mild F33.0 ; Drug induced subacute dyskinesia G24.01 ; Chronic kidney disease, stage 3 unspecified N18.30 ; Nicotine dependence, cigarettes, uncomplicated F17.210 ; Other insomnia G47.09 ; Encounter for screening for cardiovascular disorders Z13.6 ; Nicotine use Z72.0 ; Encounter for screening for depression Z13.31 and Chronic obstructive pulmonary disease, unspecified J44.9 [place] [address] [place] [address] 07/26/2024 Daniele Vasquez Major depressive disorder, recurrent, mild F33.0 ; Other insomnia G47.09 ; Encounter for screening for cardiovascular disorders Z13.6 ; Nicotine use Z72.0 ; Encounter for screening for depression Z13.31 ; Drug induced subacute dyskinesia G24.01 ; Chronic kidney disease, stage 3 unspecified N18.30 ; Nicotine dependence, cigarettes, uncomplicated F17.210 and Chronic obstructive pulmonary disease, unspecified J44.9 [facility] [address] [place] [address] 10/19/2024 Daniele Vasquez Major depressive disorder, recurrent, mild F33.0 ; Other insomnia G47.09 ; Nicotine use Z72.0 ; Drug induced subacute dyskinesia G24.01 ; Chronic kidney disease, stage 3 unspecified N18.30 ; Nicotine dependence, cigarettes, uncomplicated F17.210 and Chronic obstructive pulmonary disease, unspecified J44.9 [facility] [address] [place] [address] 01/18/2025 Daniele Vasquez [facility] [address] [place] [address] 06/29/2024 Daniele Vasquez Assessments Encounter Date Diagnosis (ICD Code) Assessment Notes Treatment Notes Treatment Clinical Notes Section Notes 02/09/2024 Chronic kidney disease, stage 3 unspecified (ICD-10 - N18.30) followed by signal maintainer 1. Depression: - Patient reports stable depressive [...] kidney function and follow up with the signal maintainer as recommended. 6. Smoking cessation: - Patient [...] to the changes in medication. 03/09/2024 Chronic kidney disease, stage 3 unspecified (ICD-10 - N18.30) followed by signal maintainer 1. Tardive Dyskinesia: - Patient reports improvement [...] F33.0) 10/19/2024 Other insomnia (ICD-10 - G47.09) 02/01/2025 Major depressive disorder, recurrent, mild (ICD-10 - F33.0) 06/23/2024 Major depressive disorder, recurrent, mild (ICD-10 - F33.0) 06/23/2024 Drug induced subacute dyskinesia (ICD-10 - G24.01) 10/19/2024 Nicotine use (ICD-10 - Z72.0) 02/01/2025 Other insomnia (ICD-10 - G47.09) 07/26/2024 Other insomnia (ICD-10 - G47.09) 03/09/2024 Major depressive disorder, recurrent, mild (ICD-10 [...] kidney function and follow up with the signal maintainer as recommended. 6. Smoking cessation: - Patient [...] any necessary adjustments to the treatment plan. 10/19/2024 Drug induced subacute dyskinesia (ICD-10 - G24.01) 07/26/2024 Encounter for screening for cardiovascular disorders [...] kidney function and follow up with the signal maintainer as recommended. 6. Smoking cessation: - Patient [...] 3 unspecified (ICD-10 - N18.30) followed by signal maintainer 02/01/2025 Nicotine use (ICD-10 - Z72.0) 06/23/2024 Nicotine dependence, cigarettes, uncomplicated (ICD-10 - F17.210) smokes 7 cigarettes a day has tried chantix in the past- states it makes her smoke more, Learning About Benefits of Quitting Smoking material was published, Quitting Tobacco: Care Instructions material was published, Deciding About Using Medicines To Quit Smoking material was published, Stopping Smokeless Tobacco Use: Care Instructions material was published 07/26/2024 Nicotine use (ICD-10 - Z72.0) 10/19/2024 Chronic kidney disease, stage 3 unspecified (ICD-10 - N18.30) followed by signal maintainer 02/01/2025 Drug induced subacute dyskinesia (ICD-10 - G24.01) 02/09/2024 Chronic obstructive pulmonary disease, unspecified (ICD-10 [...] kidney function and follow up with the signal maintainer as recommended. 6. Smoking cessation: - Patient [...] kidney function and follow up with the signal maintainer as recommended. 6. Smoking cessation: - Patient reports quitting smoking for 2 days and using nicotine patches. Plan: - Congratulate the patient on their progress and encourage continued efforts to quit smoking. - Offer additional support and resources if needed. Follow-up: - Schedule a follow-up appointment in one month to assess the patient's overall progress and response to the changes in medication. 02/01/2025 Chronic kidney disease, stage 3 unspecified (ICD-10 - N18.30) followed by signal maintainer 10/19/2024 Nicotine dependence, cigarettes, uncomplicated (ICD-10 - F17.210) has tried chantix in the past- states it makes her smoke more, Bupropion- makes dizzy 07/26/2024 Encounter for screening for depression (ICD-10 - Z13.31) 06/23/2024 Other insomnia (ICD-10 - G47.09) 06/23/2024 Encounter for screening for cardiovascular disorders (ICD-10 - Z13.6) 10/19/2024 Chronic obstructive pulmonary disease, unspecified (ICD-10 - J44.9) 02/01/2025 Nicotine dependence, cigarettes, uncomplicated (ICD-10 - F17.210) has tried chantix in the past- states it makes her smoke more, Bupropion- makes dizzy 02/09/2024 Drug induced subacute dyskinesia (ICD-10 - [...] kidney function and follow up with the signal maintainer as recommended. 6. Smoking cessation: - Patient reports quitting smoking for 2 days and using nicotine patches. Plan: - Congratulate the patient on their progress and encourage continued efforts to quit smoking. - Offer additional support and resources if needed. Follow-up: - Schedule a follow-up appointment in one month to assess the patient's overall progress and response to the changes in medication. 03/09/2024 Drug induced subacute dyskinesia (ICD-10 - [...] necessary adjustments to the treatment plan. 07/26/2024 Drug induced subacute dyskinesia (ICD-10 - G24.01) 02/01/2025 Chronic obstructive pulmonary disease, unspecified (ICD-10 - J44.9) 07/26/2024 Chronic kidney disease, stage 3 unspecified (ICD-10 - N18.30) followed by signal maintainer 06/23/2024 Nicotine use (ICD-10 - Z72.0) 06/23/2024 Encounter for screening for depression (ICD-10 - Z13.31) 07/26/2024 Nicotine dependence, cigarettes, uncomplicated (ICD-10 - F17.210) has tried chantix in the past- states it makes her smoke more, Bupropion- makes dizzy 07/26/2024 Chronic obstructive pulmonary disease, unspecified (ICD-10 [...] Next Appt Details Provider Name:Daniele Cuco allen, 05/04/2025 02:00:00 PM, [address] [facility] [address] [facility] [address], [place], [address], Insurance Providers Payer Name Payer Address Payer Phone Subscriber Number Group Number Insured Name Patient Relationship to Insured Coverage Start Date Coverage End Date Medicare-I l Medicare [address] [place] [address] [id number] RODRI YUSUF Self - patient is the insured Medicaid-I l Medicaid [address] [address] [place] [address] [id number] RODRI YUSUF Self - patient is the insured Medical (General) History Medical History History ICD Code Problems: Chronic kidney disease stage 3 Chronic obstructive lung disease Hepatic cystadenoma Mild recurrent major depression Neuroleptic-induced tardive dyskinesia Persistent insomnia Tobacco dependence caused by cigarettes , Surgical History Surgery Date(Month/Year) Any surgical history Hysterectomy/revise vagina (33886) Unlisted procedure breast (99497) Xcapsl ctrc rmvl cplx wo ecp (67819)
--- OUTSIDE RECORDS SUMMARY | 2025-02-07 16:54 | XMS_ITS | Encounter Summary ---
Author Organization [facility] Address [facility] [place] [address] Care Team Providers Care Management Developer Name Role Phone Saul Marcelino MD Primary Care Provider [phone] None, Physician Primary Care Provider Unavailabl e Saul Marcelino MD Primary Care Provider [phone] Francia Hammonds MD Unavailable [phone] Andre Mccann MD Unavailable [phone] Ana Andersen MD Unavailable [phone] Vincent Sandra MD Unavailable Joan Wood MD Unavailable Lyudmila Bangura MD Unavailable Gloria Alatorre MD Unavailable Mony Zaldivar PharmD Unavailable Unavaila Shirley Barillas PharmD Unavailable Unavailable Anastacia Garces RN Unavailable Unavailable Tabatha Solorzano Unavailable Unavailable Ness Ortiz Unavailable Sarah Grisel Singh FAMILY SERVICES COORDINATOR-PACKAGER HEAD Unavailable [phone] Nannette Joshi RN Unavailable Unavailable Sylwia LovelaceW Unavailable Unavailab Saul Kimball MD Unavailable Encounter Details Date Type Department Care Team (Late st Contact Info) Description 11/06/2022 Telephone [facility] [address] [facility], [place] [address] Taylor Perry MD Social History Tobacco Use [...] on file Legal Sex 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 CAMP ASSISTANT Gender Identity Not on file Sexual [...] st Contact Info) Description 03/16/2025 2:00 PM CAMP ASSISTANT Office Visit [facility] - Neurology [address] [facility], [place] [address] Gary Virgen APRN-PACKAGER HEAD [address] [facility] 1L [place] [address] 03/21/2025 11:00 AM CAMP ASSISTANT [facility] [address] [facility] [address] [place] [address] Maura Simmons APNP-PACKAGER HEAD [address] [facility] [address] [place] [address] 05/25/2025 11:00 AM CAMP ASSISTANT Office Visit [facility] - Nephrology [address] [facility], [place] [address] Francia Hammonds MD [address] [facility] 3L [place] [address] 06/07/2025 11:00 AM CAMP ASSISTANT Office Visit [facility] - Cardiology [address] [facility] [place] [address] Andrés Kaye MD [address] [facility] [address] [place] [address] 09/13/2025 1:45 PM CDT Appointment [facility] [address] [facility], 2nd [place] [address] 09/13/2025 2:00 PM CDT Office Visit [facility] - Hematology/Oncology [address] [place] [address] Aubree Thomas MD [address] [place] [address] documented as of this encounter [...] on filedocumented in this encounter Care Teams Management Developer Relationship Specialty Start Date End Date Saul Marcelino MD [address] [place] [address] PCP - General Family Medicine 09/17/22 02/09/24 None, Physician [address] [place] [address] PCP - General 02/10/24 04/19/24 Saul Marcelino MD [address] [place] [address] PCP - General Family Medicine 04/20/24 Francia Hammonds MD [address] [place] [address] 3 [place] [address] Helicopter Pilot Nephrology 11/24/24 [place] [address] [place] [phone] Hematology and Oncology 11/24/24 Ana Andersen MD [address] [place] [address] Hematology and Oncology 11/24/24 Vincent Sandra MD [address] [place] [address] Slab Worker/Oncologis t Hematology and Oncology 11/24/24 Joan Wood MD [address] [place] [address] Slab Worker/Oncologis t Hematology and Oncology 11/24/24 Lyudmila Bangura MD [address] [address] Physician Hematology and Oncology 11/24/24 [place] [address] [place] [phone] Physician Hematology and Oncology 11/24/24 Mony Zaldivar, PharmD 11/24/24 Shirley Barahona, PharmD Pharmacist 11/24/24 Anastacia Garces RN Registered Nurse 11/24/24 Tabatha Solorzano 11/24/24 Ness Ortiz 11/24/24 Grisel Dobbins, FAMILY SERVICES COORDINATOR-PACKAGER HEAD [address] [place] [address] Nurse Practitioner Nurse Practitioner 11/24/24 Nannette Joshi, RN Registered Nurse 11/24/24 Sylwia Lovelace LCSW [address] [place] [address] Fire Engine Operator 11/24/24 Saul Marcelino MD [address] [place] [address] Family Medicine 01/05/25 documented as of this encounter
--- OUTSIDE RECORDS SUMMARY | 2025-02-07 16:54 | XMS_ITS | Encounter Summary ---
Author Organization [facility] Address [facility] [place] [address] Care Team Providers Care Loop Tender Name Role Phone Saul Marcelino MD Primary Care Provider [phone] Francia Hammonds MD Unavailable [phone] Andre Mccann MD Unavailable [phone] Ana Andersen MD Unavailable [phone] Vincent Sandra MD Unavailable Joan Wood MD Unavailable Lyudmila Bangura MD Unavailable Gloria Alatorre MD Unavailable Mony Zaldivar PharmD Unavailable Unavaila Shirley Barillas PharmD Unavailable Unavailable Anastacia Garces RN Unavailable Unavailable Tabatha Solorzano Unavailable Unavailable Ness Ortiz Unavailable Sarah Grisel Singh APPAREL STOCK CHECKER-DIELECTRIC EMBOSSING MACHINE OPERATOR Unavailable [phone] Nannette Joshi RN Unavailable Unavailable Sylwia Lovelace PLASTICS PROCESS HAND Unavailable Unavailab Saul Kimball MD Unavailable Reason for Visit * Reason Onset Date Comments Order 04/26/2024 Encounter Details Date Type Department Care Team (Late st Contact Info) Description 04/26/2024 Telephone [facility] - [facility] [address] [facility] [place] [address] Maura Simmons, APNP-DIELECTRIC EMBOSSING MACHINE OPERATOR [address] [place] [phone] Order Social History Tobacco Use Types Packs/Day Years Used Date Smoking Tobacco: Every Day Cigarettes 0.5 60.8 Started: 1963 Smokeless Tobacco: Never Comments:Pack [...] on file Legal Sex 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 RESEARCH LABORATORY SPECIALIST Gender Identity Not on file Sexual [...] for her CPAP Patient Call Back number: [phone] ARCH LABORATORY SPECIALIST documented in this encounter Plan of Treatment Upcoming Encounters Date Type Department Care Team (Late st Contact Info) Description 03/16/2025 2:00 PM RESEARCH LABORATORY SPECIALIST Office Visit [facility] - Neurology [address] [place] [address], [place] [address] Gary Virgen APRN-DIELECTRIC EMBOSSING MACHINE OPERATOR [address] [facility] [address]L [place] [phone] 03/21/2025 11:00 AM RESEARCH LABORATORY SPECIALIST Office Visit [facility] - Sleep Services [address] [phone] Maura Simmons APELISSA-DIELECTRIC EMBOSSING MACHINE OPERATOR [address] [address] 05/25/2025 11:00 AM RESEARCH LABORATORY SPECIALIST [facility] [address] [place] [address], [place] [phone] Francia Hammonds MD [address] [place] [address] [address]L [place] [address] 06/07/2025 11:00 AM RESEARCH LABORATORY SPECIALIST Office Visit [facility] - Cardiology [address] [facility], [address] [place] [phone] Andrés Kaye MD [address] [facility] [address] [place] [address] 09/13/2025 1:45 PM CDT Appointment [facility] [address] [facility], 2nd [place] [address] 09/13/2025 2:00 PM CDT Office Visit [facility] - Hematology/Oncology [address] [place] [phone] Aubree Thomas MD [address] [place] [address] documented as of this encounter Goals Goal Patient Goal Type Associated Problems Recent Progress Patient-Stated? Author Medication Management General On track( 025 2:47 PM CDT) No Radha Bellamy, KIOM Note: Expected end date: Ongoing Interventions: Take all medications as prescribed Let your doctor know right away about any changes in your medications Make sure to request a refill of your medication at least one week prior to your last dose documented as of this encounter Visit Diagnoses Not on filedocumented in this encounter Care Teams Loop Tender Relationship Specialty Start Date End Date Saul Marcelino MD [address] [place] [phone] PCP - General Family Medicine 04/20/24 [place] [address] [place] [address] [address]L [place] [address] Lvn Lpn Nephrology 11/24/24 Andre Mccann MD [address] [place] [phone] Hematology and Oncology 11/24/24 Ana Andersen MD [address] [place] [address] Hematology and Oncology 11/24/24 Vincent Sandra MD [address] [place] [address] Market Gardener/Oncologis t Hematology and Oncology 11/24/24 Joan Wood MD [address] [place] [address] Market Gardener/Oncologis t Hematology and Oncology 11/24/24 Lyudmila Bangura MD [address] [address] Physician Hematology and Oncology 11/24/24 Gloria Alatorre MD [address] [place] [phone] Physician Hematology and Oncology 11/24/24 Mony Zaldivar, PharmD 11/24/24 Shirley Barahona, PharmD Pharmacist 11/24/24 Anastacia Garces RN Registered Nurse 11/24/24 Tabatha Solorzano 11/24/24 Ness Ortiz 11/24/24 Grisel Dobbins, INDRA-DIELECTRIC EMBOSSING MACHINE OPERATOR [address] [place] [address] Nurse Practitioner Nurse Practitioner 11/24/24 Nannette Joshi, RN Registered Nurse 11/24/24 Sylwia Lovelace LCSW [address] [place] [address] Derrick Boat Operator 11/24/24 Saul Marcelino MD [address] [place] [address] Family Medicine 01/05/25 documented as of this encounter
--- OUTSIDE RECORDS SUMMARY | 2025-02-07 16:54 | XMS_ITS | Clinical Summary ---
Author Organization [facility] Address [address] [place] [address] Care Team Providers Care Seat Cover Installer Name Role Phone Saul Marcelino MD Primary Care Provider [phone] Francia Hammonds MD Unavailable [phone] Andre Mccann MD Unavailable [phone] Ana Andersen MD Unavailable [phone] Vincent Sandra MD Unavailable Joan Wood MD Unavailable Lyudmila Bangura MD Unavailable Gloria Alatorre MD Unavailable Mony Zaldivar PharmD Unavailable Unavaila Shirley Barillas PharmD Unavailable Unavailable Anastacia Garces RN Unavailable Unavailable Tabatha Solorzano Unavailable Unavailable Ness Ortiz Unavailable Sarah Grisel Singh RESEARCH FOOD TECHNOLOGIST-STRATEGIC PLANNING SPECIALIST Unavailable [phone] Nannette Joshi RN Unavailable Unavailable Sylwia Lovelace BOTANICAL TECHNICAL OFFICER Unavailable Unavailab Saul Kimball MD Unavailable Source Comments [facility],non-owned Affiliates and Associated Physician Practices is amultiple site organization consisting of ambulatory clinics and hospital sitesin [place], [place], [place] and [place]. This disclosure is being madepursuant to the Care Everywhere program and may not contain all information available regarding this patient. Last updated [facility] Allergies Active Allergy Reactions Criticality Noted [...] (one) tablet by mouth q6h PRN (Pain) 08/02/19 17 Active amLODIPine (NORVASC) 10 MG tablet Take 1 (one) tablet by mouth once daily 06/16/19 18 Active Cholecalciferol (VITAMIN D3) 25 MCG (1000 UT) Take 1 (one) capsule by mouth once daily 09/08/19 22 Active sertraline (Zoloft) 100 MG tablet Take 1.5 (one and one-half) tablets by mouth once daily 01/09/20 22 Active traZODone (Desyrel) 100 MG tablet Take 1 (one) tablet by mouth at bedtime 12/25/19 23 Active meclizine (Antivert) 25 MG tablet Take 1 (one) tablet by mouth 2 times daily as needed for Dizziness 03/02/20 23 Active ondansetron, disintegrating, (Zofran ODT) 4 MG tablet Take 1 (one) tablet by mouth every 8 hours as needed for Nausea/Vomitin g 05/07/19 24 Active carvedilol (Coreg) 25 MG tablet Take 1 (one) tablet by mouth 2 times daily with morning and evening meal 180 tablet 3 01/20/20 24 Active Additional Information Patient taking differently: 6.25 mgOral 2 TIMES DAILY WITH MEALS, Reported on 01/16/2025 sodium bicarbonate 650 MG tablet Take 2 (two) tablets by mouth 2 times daily 120 tablet 3 05/04/19 25 Active umeclidinium-vi lanterol (Anoro Ellipta) 62.5-25 MCG/ACT inhaler Inhale 1 (one) puff by mouth once daily 60 Each 4 06/15/19 25 Active naloxegol (Movantik) 12.5 MG tablet Take 1 (one) tablet by mouth daily before breakfast 30 tablet 3 08/16/19 25 Active atorvastatin (Lipitor) 80 MG tablet Take 1 (one) tablet by mouth at bedtime 90 tablet 3 08/23/19 25 Active albuterol (Proventil;Vent temi) (2.5 MG/3ML) 0.083% nebulizer solutionIndicat ions:Mild persistent asthma without complication (HCC) Inhale 2.5 (two and one-half) mg by mouth every 6 hours as needed 99 mL 3 08/27/19 25 Active albuterol HFA (Proventil; Ventolin; Proair) 108 (90 Base) MCG/ACT inhaler Inhale 2 (two) puffs by mouth every 4 hours as needed 18 g 08/27/19 25 Active topiramate (Topamax) 25 MG tabletIndicatio ns:Migraine Take 2 (two) tablets by mouth 2 times daily Reasons: Migraine Headache 180 tablet 4 09/15/19 25 Active Ingrezza 80 MG CAPSIndications :Tardive dyskinesia Take 1 (one) capsule by mouth once daily 30 capsule 11 09/15/19 25 Active amantadine (Symmetrel) 100 MG capsuleIndicati ons:Tardive dyskinesia Take 1 (one) capsule by mouth once daily 90 capsule 5 09/15/19 25 Active rOPINIRole (Requip) 0.25 MG tabletIndicatio ns:RLS (restless legs syndrome) Take 1 (one) tablet by mouth at bedtime 30 tablet 11 09/15/19 25 Active nitroGLYCERIN (Nitrostat) 0.4 MG tablet ONE TABLET UNDER TONGUE NEEDED FOR CHEST PAIN EVERY 5 MINUTES NEEDED FOR ANGINA 100 tablet 10/25/19 25 Active polyethylene glycol 3350 (Miralax) 17 GM/SCOOP powder starting a week before your colonoscopy, take a dose of Miralax twice a day 238 g 11/10/19 25 Active bisacodyl EC (Dulcolax) 5 MG tablet Take 4 tablets orally at noon 2 days before your colonoscopy. Take 4 tablets orally at noon the day before your colonoscopy 8 tablet 11/10/19 25 Active Vitamin K 100 MCG TABS Take 1 (one) tablet by mouth once Active isosorbide mononitrate CR 24hr (Imdur) 60 MG tablet TAKE 2 TABLETS BY MOUTH ONCE DAILY 180 tablet 3 01/07/20 25 Active valsartan (Diovan) 160 MG tabletIndicatio ns:Hypertension ,Nondiabetic Proteinuric Chronic Kidney Disease Take 1 (one) tablet by mouth once daily Reasons: High Blood Pressure, Proteinuric Chronic Kidney Disease in Nondiabetic Patient 30 tablet 2 01/08/20 25 Active hydrALAZINE (Apresoline) 100 MG tablet Take 1 (one) tablet by mouth 3 times daily 90 tablet 3 01/08/20 25 Active Aspirin 81 MG CAPS Take 81 mg by mouth once daily Can restart aspirin 5 days after kidney biopsy. Restart daily aspirin on 01/21/2025 01/22/20 25 Active Aspirin 81 MG CAPS Take 81 mg by mouth once daily 2024 Discontinued polyethylene glycol (Gavilyte-C) 240 g solution Drink half of prep solution at 5pm the night before colonoscopy. Finish the prep at 4am the day of test. 4000 mL 02/17/20 24 2024 Discontinued(L ist Clean-Up) polyethylene glycol (Golytely) solution Drink half of prep solution at 5pm the night before colonoscopy. Finish the prep at 4am the day of test. 4000 mL 11/02/19 25 2024 Discontinued(T x Complete) Active Problems Problem Noted Date Diagnosed Date CKD (chronic kidney disease) 01/16/2025 Assessment & Plan (01/17/2025 1:37 PM CDT): [id number]. Longstanding CKD. Did not follow with nephrology for 10+ years. Recently established care around 01/05 with noted serum creatinine elevated to 2.61 from 2.1-2.2 previously. Recent Labs Component Name 01/17/25 0518 01/16/25 2156 01/05/25 0948 CREATININE 2.07* 2.23* 2.61* Estimated Glomerular Filtration Rate: 25.7 mL/min/1.73m2 (A) (by CKD-EPI based on SCr of 2.07 mg/dL (H)). Urine albumin/creatinine of 1456 in 11/11/2024 Kidney biopsy performed 01/16 AM. Creatinine improved to 2.07 on day of discharge, 01/17/2025 Plan: - Pause taking aspirin for 5 days, restart on 01/21/2025 - F/u with scheduled OP nephrology appointment including f/u of kidney biopsy Assessment & Plan (01/16/2025 7:32 PM CDT): [id number]. Longstanding CKD. Did not follow with nephrology for 10+ years. Recently established care around 01/05 with noted serum creatinine elevated to 2.61 from 2.1-2.2 previously. Recent Labs Component Name 01/05/25 0948 11/11/24 1328 11/02/24 1321 CREATININE 2.61* 2.08* 2.15* Estimated Glomerular Filtration Rate: 19.4 mL/min/1.73m2 (A) (by CKD-EPI based on SCr of 2.61 mg/dL (H)). Urine albumin/creatinine of 1456 in 11/11/2024 Kidney biopsy performed 01/16 AM. Patient with chronic lower back pain and sciatica. Plan: - Interventional nephrology following, appreciate recs - 01/16 will hold DVT prophylaxis and aspirin today per nephrology night fellow - Pain management -- Lidocaine patches q12h for chronic back pain -- Acetaminophen 650 mg q6h PRN for mild/moderate pain -- Hydrocodone-acetaminophen q6h PRN for severe pain - F/u PT/OT - Continue home sodium bicarb 1300 mg bid for urine alkalinization - Senna and miralax bid prn Hypertension 01/16/2025 Assessment & Plan (01/17/2025 1:37 PM CDT): Patient reported home blood pressures in the 140s/70s - Continue home meds: valsartan 160 mg, amlodipine 10 mg, carvedilol 6.25 mg bid, hydralazine 100 mg TID - F/u with your PCP - Confirm your at home carvedilol dosing and discuss with nephrology and PCP Assessment & Plan (01/16/2025 8:10 PM CDT): Patient reported home blood pressures in the 140s/70s - Continue home meds: valsartan 160 mg, amlodipine 10 mg, carvedilol 6.25 mg bid, hydralazine 100 mg TID Parkinson's disease 01/16/2025 Assessment & Plan (01/17/2025 1:37 PM CDT): - Continue home meds: amantadine 100 mg, ropinirole 0.25 mg, Ingrezza 80 mg Assessment & Plan (01/16/2025 8:12 PM CDT): - Continue home meds: amantadine 100 mg, , ropinirole 0.25 mg - Hold home Ingrezza 80 mg as not on formulary HLD (hyperlipidemia) 01/16/2025 Assessment & Plan (01/17/2025 1:37 PM CDT): Continue home meds: Atorvastatin 80 mg, PRN nitroglycerin 0.4 mg (has not used in months), isosorbide mononitrate CR 24hr - Pause taking aspirin for 5 days, restart on 01/21/2025 Assessment & Plan (01/16/2025 8:10 PM CDT): Continue home meds: aspirin 81 mg, Atorvastatin 80 mg, PRN nitroglycerin 0.4 mg (has not used in months), isosorbide mononitrate CR 24hr CAD (coronary artery disease) 01/16/2025 Assessment & Plan (01/17/2025 1:37 PM CDT): Continue home meds: Atorvastatin 80 mg, PRN nitroglycerin 0.4 mg (has not used in months), isosorbide mononitrate CR 24hr - Pause taking aspirin for 5 days, restart on 01/21/2025 Assessment & Plan (01/16/2025 8:10 PM CDT): Continue home meds: aspirin 81 mg, Atorvastatin 80 mg, PRN nitroglycerin 0.4 mg (has not used in months), isosorbide mononitrate CR 24hr Chronic low back pain with sciatica 01/16/2025 Assessment & Plan (01/17/2025 1:37 PM CDT): Home meds: Patient reports being on hydrocodone-acetaminophen 10-325 mg q6h for more than 8 years Assessment & Plan (01/16/2025 7:32 PM CDT): Home meds: Patient reports being on hydrocodone-acetaminophen 10-325 mg q6h for more than 8 years - Pain regimen as above Bipolar and related disorder 01/16/2025 Assessment & Plan (01/17/2025 1:37 PM CDT): Patient reports diagnoses of bipolar, anxiety, depression. - Continue home med: Sertraline 100 mg - Patient to discuss Sertraline with PCP as it may be contributing to her chronic (years) of nausea Assessment & Plan (01/16/2025 7:32 PM CDT): Patient reports diagnoses of bipolar, anxiety, depression. - Continue home med: Sertraline 100 mg Insomnia 01/16/2025 Assessment & Plan (01/17/2025 1:37 PM CDT): - Continue home med: Trazodone 100 mg Assessment & Plan (01/16/2025 7:32 PM CDT): - Continue home med: Trazodone 100 mg Nausea 01/16/2025 Assessment & Plan (01/17/2025 1:37 PM CDT): Patient reports chronic Meniere's, vertigo, and chronic nausea. - Continue home meclizine and ondansetron as needed Assessment & Plan (01/16/2025 7:32 PM CDT): Patient reports chronic Meniere's, vertigo, and chronic nausea. On meclizine and ondansetron at home. - Ordered ondansetron 4 mg q6h PRN Meniere disease 01/16/2025 Assessment & Plan (01/17/2025 1:37 PM CDT): Patient reports chronic Meniere's, vertigo, and chronic nausea. - Continue home meclizine and ondansetron as needed Assessment & Plan (01/16/2025 7:32 PM CDT): Patient reports chronic Meniere's, vertigo, and chronic nausea. On meclizine and ondansetron at home. - Ordered ondansetron 4 mg q6h PRN Vertigo 01/16/2025 Assessment & Plan (01/17/2025 1:37 PM CDT): Patient reports chronic Meniere's, vertigo, and chronic nausea. - Continue home meclizine and ondansetron as needed Assessment & Plan (01/16/2025 7:32 PM CDT): Patient reports chronic Meniere's, vertigo, and chronic nausea. On meclizine and ondansetron at home. - Ordered ondansetron 4 mg q6h PRN Migraine 01/16/2025 Assessment & Plan (01/17/2025 1:37 PM CDT): Continue home meds - Topiramate 25 mg - Patient to discuss with neurology, PCP, and nephrology about Topiramate as it can contribute to patient's known kidney stones Assessment & Plan (01/16/2025 8:10 PM CDT): Continue home meds - Topiramate 25 mg Bilateral shoulder pain 02/10/2024 Renal disorder 12/08/2023 [...] = 85.8% of total therapeutic sleep time Assessment & Plan (01/17/2025 1:37 PM CDT): - Continue home CPAP Assessment & Plan (01/16/2025 7:32 PM CDT): - Use home CPAP Tardive dyskinesia 05/14/2023 Cystic disease of liver 09/18/2022 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 [place] heart with stable angina pectoris 09/17/2022 Angina pectoris 06/25/2022 Overview (06/25/2022): Added automatically from request for surgery [id number] Nontoxic multinodular goiter 12/28/2020 Overview (02/13/2021): Last [...] Encounters Date Type Department Care Team Description 02/06/2025 2:00 PM COUNTERINTELLIGENCE AGENT Hospital Encounter [facility] CAT SCAN [address] [place] [phone] Beau Myrick MD 01/24/2025 Telephone [facility] - Nephrology [address] [facility] [place] [phone] Fely Cook, KIMO Results 01/20/2025 Telephone [facility] - Centralized Scheduling [address] [place] [address] Gary Virgen APRN-STRATEGIC PLANNING SPECIALIST Follow-up (Spk to Eduarda, stated she is needing a sooner appointment with Dr Virgen. She is currently scheduled for 03/16/2025 @ for 60min. She was just released from the hospital 01/17/2025. She also stated her right arm has been numb. Please reach out to Eduarda for further assistance.) 01/18/2025 Lab Requisition [facility] - Pathology Lab [address] [place] [address] Francia Hammonds MD Chronic kidney disease, stage 3 unspecified (HCC) 01/16/2025 7:31 AM CDT - 01/17/2025 2:44 PM CDT Hospital Encounter [facility] ACUTE [address] [place] [phone] Francia Hammonds MD Jain, Aman, DO Fritz, Adam, MD [facility] Discharge Disposition: Home Health Care Svc 01/16/2025 Travel 01/13/2025 Telephone [facility] IVR [address] [place] [phone] Rodger Gutiérrez, RN Appointment 01/10/2025 Orders Only [facility] - Nephrology [address] [place] [phone] Francia Hammonds MD Stage 3 chronic kidney disease, unspecified whether stage 3a or 3b CKD (HCC) 01/09/2025 Telephone [facility] - Centralized Scheduling [address] [place] [phone] Andrés Kaye MD Echocardiogram; Results; Patient Requested Call 01/06/2025 Refill [facility] - Cardiology [facility] [phone] Andrsé Kaye MD Refill Request 01/05/2025 9:49 AM CDT - 01/05/2025 11:59 PM CDT Hospital Encounter [facility] LAB OP DRAW STATION [address] [place] [address] Francia Hammonds MD Discharge Disposition: Home or Self Care 01/05/2025 8:30 AM CDT Office Visit [facility] - Nephrology [address] [place] [phone] Francia Hammonds MD Stage 3 chronic kidney disease, unspecified whether stage 3a or 3b CKD (HCC) (Primary Dx); Proteinuria, unspecified type; Monoclonal gammopathy; Medication monitoring encounter; Nephrolithiasis 01/05/2025 Travel 01/04/2025 11:00 AM CDT Ancillary Procedure [facility] - Echosonography [address] [place] [phone] Chronic obstructive pulmonary disease, unspecified COPD type (HCC); Essential hypertension; Coronary artery disease of [place] artery [place] heart with stable angina pectoris 01/04/2025 Travel 12/29/2024 Refill [facility] - Pulmonology [address] [place] [phone] Maico Murphy MD Refill Request 12/07/2024 11:15 AM CDT Office Visit [facility] - Cardiology [address] [place] [address], [facility] [address] [place] [address] Andrés Kaye MD Chronic obstructive pulmonary disease, unspecified COPD type (HCC) (Primary Dx); Essential hypertension; Coronary artery disease of [place] artery [place] heart with stable angina pectoris; BERTA (obstructive sleep apnea); Mixed hyperlipidemia 12/07/2024 Travel 11/30/2024 2:08 PM CDT - 11/30/2024 11:59 PM CDT Hospital Encounter [facility] US [address] [place] [address] Adarsh Menendez MD Discharge Disposition: Home or Self Care 11/30/2024 Travel 11/30/2024 Telephone [facility] - GI [address] [place] [phone] Jackeline Umanzor MD Results 11/25/2024 Telephone [facility] - Nephrology [address] [place] [phone] Francia Hammonds MD Follow-up 11/25/2024 Telephone [facility] BMT CLINIC [address] [place] [address] Jayla Steiner 11/23/2024 Orders Only [facility] - Nephrology [address] [place] [phone] Francia Hammonds MD Proteinuria, unspecified type 11/23/2024 Telephone [facility] - Nephrology [address] [place] [phone] Huong Espinal, KIMO Question 11/23/2024 Telephone [facility] - Nephrology [address] [place] [phone] Francia Hammonds MD LABS ONLY; Follow-up 11/17/2024 1:20 PM CDT Anesthesia Event [facility] ENDOSCOPY [address] [place] [phone] Claude Parekh MD 11/17/2024 12:30 PM CDT - 11/17/2024 1:15 PM CDT Surgery [facility] ENDOSCOPY [address] [place] [address] Jewel Dooley MD COLONOSCOPY SCREEN--- extended prep 11/17/2024 10:52 AM CDT - 11/17/2024 3:29 PM CDT Hospital Encounter [facility] BRIGETTE OP [address] [place] [address] Jewel Dooley MD Surgery General Discharge Disposition: Home or Self Care 11/17/2024 Travel 11/14/2024 Travel 11/11/2024 1:15 PM CDT - 11/11/2024 11:59 PM CDT Hospital Encounter [facility] LAB OP DRAW STATION [address] [place] [address] Discharge Disposition: Home or Self Care 11/11/2024 Travel 11/09/2024 Orders Only [facility] ENDOSCOPY [address] [place] [address] Radha Steiner RN from Last 3 Months Immunizations Immunization Administration [...] 0.5 60.8 Started: 1963 Smokeless Tobacco: Current Tobacco Cessation:Ready to Q uit: Not Asked; Counseling Given: Not Answered Comments:Quit cigs 4 months ago, vapes daily [...] on file Legal Sex 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 COUNTERINTELLIGENCE AGENT Gender Identity Not on file Sexual Orientation Not on file Occupation Industry Job Start Date Job End Date former worked in [employer] Not on file Not on file Not on file Last Filed Vital Signs Vital Sign Reading Time Taken Comments Blood Pressure 167/76 01/17/2025 2:23 PM CDT Pulse 63 01/17/2025 8:40 AM CDT Temperature 36.9 C (98.4 F) 01/17/2025 8:40 AM CDT Respiratory Rate 11 01/16/2025 2:30 PM CDT Oxygen Saturation 98% 01/17/2025 9:15 AM CDT Inhaled Oxygen Concentration 21% 01/16/2025 1 0:45 AM CDT Weight 78.2 kg (172 lb 8 oz) 01/16/2025 7:57 AM CDT Height 154.9 cm (5' 1) 01/16/2025 7:57 AM CDT Body Mass Index 32.59 01/16/2025 7:57 AM CDT Plan of Treatment Upcoming Encounters Date Type Department Care Team (Late st Contact Info) Description 03/16/2025 2:00 PM COUNTERINTELLIGENCE AGENT [facility] [address] [place] [address], [place] [address] Gary Virgen APRN-STRATEGIC PLANNING SPECIALIST [facility] [address]L [place] [phone] 03/21/2025 11:00 AM COUNTERINTELLIGENCE AGENT Office Visit [facility] - Sleep Services [address] [facility] [address] [place] [address] Maura Simmons APNP-STRATEGIC PLANNING SPECIALIST [address] [facility] [address] [place] [address] 05/25/2025 11:00 AM COUNTERINTELLIGENCE AGENT [facility], [place] [address] Francia Hammonds MD [address] [facility] [address]L [place] [address] 06/07/2025 11:00 AM COUNTERINTELLIGENCE AGENT Office Visit [facility] - Cardiology [address] [facility], [facility] [address] [place] [address] Andrés Kaye MD [address] [facility] [address] [place] [address] 09/13/2025 1:45 PM CDT Appointment [facility] CANCER CARE DRAWSTATION [address] [place] [address] 09/13/2025 2:00 PM CDT Office Visit [facility] - Hematology/Oncology [address] [place] [address] Aubree Thomas MD [address] [place] [address] Health Maintenance Due Date Last Done Comments [...] 10/30/2021, Additional history exists SCREENING FOR DIABETES 01/18/2028 5, 01/16/2025, 01/05/2025, Additional history exists COLON MONITORING 11/17/2034 11/17/2024, [...] On track( 2:47 PM CDT) No Radha Bellamy RN Note: Expected end [...] the bathroom Medical Devices Implanted Type Area Chemical Tester Device Identifier Shelf Expiration Date Model / Serial / Lot Sys Cor Stent Sng Xd Mr 2.25mm 20mm Dlv - [id number] Implanted:Qty: 1 on 08/17/2023 by Jeane Lu MD at [facility] Left: Coronary [employer] [id number] 07/14/2024 [id number] / [id number] Procedures Procedure Name Priority Date/Time Associated Diagnosis Comments COMPREHENSIVE METABOLIC PANEL Routine 01/17/2025 5:18 AM CDT Stage 3b chronic kidney disease (HCC) CBC W AUTO DIFFERENTIAL Routine 01/17/2025 5:18 AM CDT Stage 3 chronic kidney disease, unspecified whether stage 3a or 3b CKD (HCC) COMPREHENSIVE METABOLIC PANEL Routine 01/16/2025 9:56 PM CDT Stage 3b chronic kidney disease (HCC) CBC W AUTO DIFFERENTIAL STAT 01/16/2025 9:56 PM CDT Stage 3 chronic kidney disease, unspecified whether stage 3a or 3b CKD (HCC) PT EVAL AND TREAT Routine 01/16/2025 6:1 6 PM CDT OT EVAL AND TREAT Routine 01/16/2025 6:1 6 PM CDT CBC W AUTO DIFFERENTIAL Routine 01/16/2025 1:48 PM CDT Stage 3 chronic kidney disease, unspecified whether stage 3a or 3b CKD (HCC) ELECTRON MICROSCOPY ([facility]) Routine 01/16/2025 10:40 AM CDT Chronic kidney disease, stage 3 unspecified (HCC) PATHOLOGY TISSUE Routine 01/16/2025 10:40 AM CDT Stage 3 chronic kidney disease, unspecified whether stage 3a or 3b CKD (HCC) IR US GUIDE NEEDLE PLACEMENT Routine 01/16/2025 10:10 AM CDT Stage 3 chronic kidney disease, unspecified whether stage 3a or 3b CKD (HCC) URINALYSIS NO MICROSCOPIC NO CULTURE STAT 01/16/2025 8:39 AM CDT Stage 3 chronic kidney disease, unspecified whether stage 3a or 3b CKD (HCC) CBC W/O DIFFERENTIAL STAT 01/16/2025 8:14 AM CDT Stage 3 chronic kidney disease, unspecified whether stage 3a or 3b CKD (HCC) PT-INR STAT 01/16/2025 8:14 AM CDT Stage 3 chronic kidney disease, unspecified whether stage 3a or 3b CKD (HCC) URINALYSIS NO MICROSCOPIC NO CULTURE Routine 01/05/2025 9:48 AM CDT Stage 3 chronic kidney disease, unspecified whether stage 3a or 3b CKD (HCC) PHOSPHOLIPASE A2 RECEPTOR AB IGG RFLX TITER Routine 01/05/2025 9:48 AM CDT Stage 3 chronic kidney disease, unspecified whether stage 3a or 3b CKD (HCC) PT-INR Routine 01/05/2025 9:48 AM CDT Stage 3 chronic kidney disease, unspecified whether stage 3a or 3b CKD (HCC) Status post biopsy of kidney RENAL FUNCTION PANEL Routine 01/05/2025 9:48 AM CDT Stage 3 chronic kidney disease, unspecified whether stage 3a or 3b CKD (HCC) ECHO COMPLETE Routine 01/04/2025 11:14 AM CDT Chronic obstructive pulmonary disease, unspecified COPD type (HCC) Essential hypertension Coronary artery disease of [place] artery [place] heart with stable angina pectoris US KIDNEY WITH DOPPLER Routine 11/30/2024 4:04 PM CDT Persistent proteinuria Chronic kidney disease, stage 3b (HCC) PATHOLOGY TISSUE Routine 11/17/2024 1:51 PM CDT Colon cancer screening SC COLOREC CANC SCRN,SCOPY NOT HI RISK 11/17/2024 1:16 PM CDT Colon cancer screening Special Needs Message Received: Today Radha Steiner RN Feilner, Michelle, RN Previous Messages ----- Message ----- From: Jackeline Umanzor MD Sent: 08/15/2024 3:41 PM CDT To: [facility] Schedulers - Endoscopy Pool This patient had [...] 3b chronic kidney disease (HCC) Persistent proteinuria MPO/SC 3 AUTOANTIBODIES PANEL Routine 11/11/2024 1:28 PM [...] 3b chronic kidney disease (HCC) Persistent proteinuria from Last 3 Months Results * (ABNORMAL) CBC W AUTO DIFFERENTIAL (01/17/2025 5:18 AM CDT) Only the most recent of3 resultswithin the time period is included. WBC 9.5 4.0 - 10.7 x10E9/L 01/17/2025 6:07 AM [facility] RBC Count 3.29(L) 3.90 - 5.20 x10E12/L 01/17/2025 6:07 AM [facility] Hemoglobin 10.0(L) 11.9 - 15.8 g/dL 01/17/2025 6:07 AM [facility] Hematocrit 31.3(L) 34.8 - 46.1 % 01/17/2025 6:07 AM [facility] MCV 95.1 80.0 - 98.0 fL 01/17/2025 6:07 AM [facility] MCH 30.4 26.7 - 33.6 pg 01/17/2025 6:07 AM [facility] MCHC 31.9 31.7 - 36.3 g/dL 01/17/2025 6:07 AM [facility] RDW-CV 14.1 11.3 - 14.8 % 01/17/2025 6:07 AM [facility] Platelet Count 192 150 - 420 x10E9/L 01/17/2025 6:07 AM [facility] MPV 11.3 7.8 - 11.4 fL 01/17/2025 6:07 AM [facility] Neutrophil % 70.9 41.0 - 74.0 % 01/17/2025 6:07 AM [facility] Lymphocyte % 17.2 17.0 - 47.0 % 01/17/2025 6:07 AM [facility] Monocyte % 9.0 3.0 - 11.0 % 01/17/2025 6:07 AM [facility] Eosinophil % 2.1 0.0 - 7.0 % 01/17/2025 6:07 AM [facility] Basophil % 0.3 0.0 - 1.6 % 01/17/2025 6:07 AM [facility] Immature Granulocytes % 0.5 0.0 - 1.0 % 01/17/2025 6:07 AM [facility] Neutrophil Absolute 6.71 1.60 - 7.50 x10E9/L 01/17/2025 6:07 AM [facility] Lymphocyte Absolute 1.63 1.00 - 4.40 x10E9/L 01/17/2025 6:07 AM [facility] Monocyte Absolute 0.85 0.15 - 1.00 x10E9/L 01/17/2025 6:07 AM [facility] Eosinophil Absolute 0.20 0.00 - 0.60 x10E9/L 01/17/2025 6:07 AM [facility] Basophil Absolute 0.03 0.00 - 0.13 x10E9/L 01/17/2025 6:07 AM [facility] Blood BLOOD SPECIMEN / Unknown Lab Venipuncture / Unknown 01/17/2025 5:18 AM CDT 01/17/2025 6:02 AM CDT us Carina Restrepo MD LAB - HEMATOLOGY ORDERABLES F inal Result [facility] [address] [place] [address], [facility] [phone] * (ABNORMAL) COMPREHENSIVE METABOLIC PANEL (01/17/2025 5:18 AM CDT) Only the most recent of2 resultswithin the time period is included. BUN 39(H) 7 - 26 mg/dL 01/17/2025 6:30 AM [facility] Creatinine 2.07(H) 0.56 - 0.96 mg/dL 01/17/2025 6:30 AM [facility] Sodium 143 136 - 145 mmol/L 01/17/2025 6:30 AM [facility] Potassium 3.5 3.5 - 4.5 mmol/L 01/17/2025 6:30 AM [facility] Chloride 110(H) 98 - 107 mmol/L 01/17/2025 6:30 AM [facility] CO2 25 22 - 29 mmol/L 01/17/2025 6:30 AM [facility] Glucose 90 70 - 99 mg/dL 01/17/2025 6:30 AM [facility] Calcium 8.1(L) 8.4 - 10.2 mg/dL 01/17/2025 6:30 AM [facility] Protein Total 6.1 6.0 - 8.3 g/dL 01/17/2025 6:30 AM [facility] Albumin 2.8(L) 3.4 - 5.0 g/dL 01/17/2025 6:30 AM [facility] Bilirubin Total 0.3 0.2 - 1.2 mg/dL 01/17/2025 6:30 AM [facility] Alkaline Phosphatase 96 40 - 150 U/L 01/17/2025 6:30 AM [facility] ALT 13 5 - 55 U/L 01/17/2025 6:30 AM [facility] AST 19 5 - 34 U/L 01/17/2025 6:30 AM [facility] Anion Gap 8 6 - 16 01/17/2025 6:30 AM [facility] BUN/Creatinine Ratio 19 7 - 23 01/17/2025 6:30 AM [facility] Osmolality Calculated 305(H) 275 - 295 mOsm/kg 01/17/2025 6:30 AM [facility] Albumin/Globulin Ratio 0.8(L) 1.1 - 2.3 01/17/2025 6:30 AM [facility] eGFR by CKD-EPI 26(L) >=90 mL/min/1.7 3 m2 01/17/2025 6:30 AM [facility] Comment:Estimated Glomerular Filtration Rate (eGFR) calculated using the CKD-EPI Creatinine Equation (2020), per the National Kidney Foundation and [employer] Society of Nephrology recommendations. Blood BLOOD SPECIMEN / Unknown Lab Venipuncture / Unknown 01/17/2025 5:18 AM CDT 01/17/2025 6:03 AM CDT us Merlin Nieves DO LAB - CHEMISTRY ORDERABLES Final Result [facility] [address] [place] [address], [facility] [phone] * PATHOLOGY TISSUE (01/16/2025 10:40 AM CDT) Only the most recent of2 resultswithin the time period is included. Case Report Surgical Pathology Report Case: [id number] Authorizing Provider: Francia Hammonds MD Collected: 01/16/2025 10:40 AM Ordering Location: [facility] OP Received: 01/16/2025 11:26 AM Pathologist: Luke Sanderson MD Specimen: Kidney Biopsy, LEFT KIDNEY 3:[address] [facility] Final Diagnosis Kidney, Left, Percutaneous Needle Biopsy: - Insufficient for diagnosis. Note: In the tissue submitted for light microscopic analysis, a single glomerulus is present (and is globally sclerotic), and arteries are not represented. In the tissue submitted for immunofluorescence analysis, no glomeruli are present. Repeat kidney biopsy is recommended, if clinically indicated. Light microscopy and immunofluorescence results were reported to Dr. Hammonds on 01/17/25 at 4:40 p.m. Ultrastructural analysis is pending and will be reported in an addendum. 3:[address] [facility] at 1651 CDT Microscopic Description and Comment 1 H&E, 1 Ray silver, 1 PAS, 1 trichrome, 1 Congo red. Sections show needle cores of fibroadipose connective tissue and a minute needle core of renal parenchyma comprising cortex containing a single glomerulus, which is globally sclerotic. In the limited cortical sample, there is approximately 70% interstitial fibrosis with a minimal focal mononuclear inflammatory infiltrate. Greater than 90% of tubules are atrophic with focal thyroidization, characterized by PAS-positive casts with no inflammatory reaction. Arteries are not present in the biopsy sample. A [place] red stain is negative for amyloid. 3:[address] [facility] Clinical History The patient is a 69-year-old woman with hypertension, obesity, and monoclonal gammopathy who underwent percutaneous needle biopsy of the left kidney. Laboratory data include creatinine of 2.23 and urinalysis with 2+ protein and no blood. 3:[address] [facility] Gross Description Received fresh on Telfa on ice are six needle cores of lopez-white tissue with diameters of 0.1 cm and lengths ranging from 0.3 cm to 1.0 cm. The specimen is submitted in its entirety for light microscopic, immunofluorescence, and electron microscopic analyses. 3:[address] [facility] Immunofluorescence 2 FS H&E, 1 IgG, 1 IgA, 1 IgM, 1 C1q, 1 C3, 1 albumin, 1 fibrinogen, 1 kappa, 1 lambda. H&E: Shows fibroadipose connective tissue and a minute fragment of renal parenchyma with no glomeruli. IgG, IgA, IgM, C1q, C3, albumin: No glomeruli present. Fibrinogen: Nonspecific label. Devola, lambda: 2+ label of rare cast. 3:[address] [facility] Addendum 1 Electron Microscopy: [id number]. Noh-qurcopkkvl-qiey k, lfbpcczwx-lwyr-oecm scott sections of three blocks are reviewed; one is selected for ultrastructural analysis. Transmission electron microscopic analysis of a single glomerulus shows mild effacement of visceral epithelial foot processes, segmental mild thickening of the basement membrane, unremarkable endothelium, and a moderate increase in mesangial matrix. EM Interpretation: - Nonspecific ultrastructural alterations. 3:[address] [facility] Addendum electronically signed by Luke Sanderson MD on 02/06/2025 at 1502 [facility] Pathologist Location at [facility] 3:[address] [facility] Disclaimer The performance characteristics of all immunohistochemical and indirect immunofluorescence stains (if any) cited in this report were determined by the Histopathology Laboratory of [facility]. Some of these tests were [...] and interpreted by the attending (teaching) pathologist. The interpretation of this case is performed by [facility] at [facility], [address] [place] [address]. 3:[address] [facility] Collected By Bryant Lozada MD 3:[address] [facility] Embedded Images 3:[address] [facility] Pathology/Cytolo gy KIDNEY BIOPSY SPECIMEN / Unknown Collection / Unknown 01/16/2025 10:40 AM CDT 01/16/2025 11:26 AM CDT Francia Hammonds MD LAB - PATHOLOGY/CYTOLOGY ORDERA BLES Edited Result - Final [facility] [address] [place] [address], [facility] [phone] * ELECTRON MICROSCOPY ([facility]) (01/16/2025 10:40 AM CDT) Case Report Gynecologic Cytology Report Case: [id number] Authorizing Provider: Francia Hammonds MD Collected: 01/16/2025 10:40 AM Ordering Location: [facility] - Received: 01/18/2025 08:40 AM Pathology Lab First Screen: Beau Herring Specimen: EM RENAL - [facility], Kidney, Left, One piece approx. 2 mm long. 01/31/2025 3:50 PM CDT [facility] PATH[facility]Y LAB Electron Microscopy Technical Summary # of Block(s) cut: 4 # of Glomeruli found: 2 # of Glomeruli photographed: 1 01/31/2025 3:50 PM CDT [facility] Pathologist Location at [facility] 01/31/2025 3:50 PM CDT [facility] Embedded Images - EM 01/31/2025 3:50 PM CDT [facility] Pathology/Cytolo gy (Kidney, Left) 01/16/2025 10:40 AM CDT 01/18/2025 8:40 AM CDT Francia Hammonds MD LAB - PATHOLOGY/CYTOLOGY ORDERA BLES Final Result Performing Organization Address City/State/[facility] Co de Phone Number [facility] [address] [place] [address], [facility] [phone] * IR US Guide Needle Placement (01/16/2025 10:10 AM CDT) Anatomical Region Laterality Modality Abdomen, Lung, Chest, Breast X-R ay Angiography 01/16/2025 1:40 PM CDT Addenda Addendum by Bryant Lozada MD on 01/16/2025 1:55 PM CDT Moderate sedation on this adult patient was ordered by me, administered intravenously in my presence, and monitored by the procedure nurse as an independent trained observer who was present throughout the procedure. The following parameters were monitored: oxygen saturation, heart rate, blood pressure, and response to care. Intra-service sedation start time was 09:45 and end time was 10:10 during which I was present. Total physician intra-service sedation time was 25 minutes. For details on pre-moderate sedation and post-moderate sedation patient evaluation, please review the evaluation forms in [facility]. For details on monitored clinical parameters during the intra-service sedation time, please review the procedure nurse documentation in [facility]. > Interpreting Provider: Bryant Lozada MD on 01/16/2025 1:53 PM Narrative 01/16/2025 1:44 PM CDT PROCEDURE: IR US GUIDE NEEDLE PLACEMENT DATE/TIME OF EXAM: 01/16/2025 10:26 AM CLINICAL INFORMATION: None relevant/not provided if blank. Indication: N18.30: Stage 3 chronic kidney disease, unspecified whether stage 3a or 3b CKD (HCC) Additional History: COMPARISON: None. MEDICATIONS: None. Blood loss: Negligible Contrast: None Complications: None immediate. PROCEDURE: Weapons Designer: Francia Hammonds Attending/Compliance Investigator: Bryant Lozada Indication: Increased creatinine After the risks and benefits of the procedure were explained to the patient by Dr. Lozada and patient was informed of potential risk of gross hematuria, perinephric hematoma, abscess, loss of kidney function, need for blood transfusion. The patient signed the consent form. Following informed consent the patient was taken to the Angio area. A preliminary ultrasound scan was utilized to localize the kidneys and the lower pole of the left kidney was chosen for biopsy. The distance from the skin to the surface of the kidney was measured. The patient received one percent lidocaine to numb the skin and subcutaneous tissue. Using the [employer] guidance system A trocar was passed from the skin to the surface of the kidney under real-time ultrasound guidance. An 18-gauge automated spring loaded biopsy needle was used. 6 passes yielded 3 small cores of the kidney. D-Stat was injected through the trocar which was then removed . The patient tolerated the procedure very well. A US scan postprocedure showed no significant perinephric hematoma. The patient was instructed to remain on absolute bed rest for 6 hours. A CBC will obtained in 6 hours and tomorrow morning. The patient will remain in bed till next day morning. I was present and assisting for the entire procedure. > Interpreting Provider: Bryant Lozada MD on 01/16/2025 1:44 PM Procedure Note Bryant Lozada MD - 01/16/2025 PROCEDURE: IR US GUIDE NEEDLE PLACEMENT DATE/TIME OF EXAM: 01/16/2025 10:26 AM CLINICAL INFORMATION: None relevant/not provided if blank. Indication: N18.30: Stage 3 chronic kidney disease, unspecified whether stage 3a or 3b CKD (HCC) Additional History: COMPARISON: None. MEDICATIONS: None. Blood loss: Negligible Contrast: None Complications: None immediate. PROCEDURE: Weapons Designer: Francia Hammonds Attending/Compliance Investigator: Bryant Lozada Indication: Increased creatinine After the risks and benefits of the procedure were explained to thepatient by Dr. Lozada and patient was informed of potential risk of gross hematuria, perinephric hematoma, abscess, loss of kidney function, needfor blood transfusion. The patient signed the consent form. Following informed consent the patient was taken to the Angio area. A preliminary ultrasound scan was utilized to localize the kidneys and the lower pole of the left kidney was chosen for biopsy. The distance fromthe skin to the surface of the kidney was measured. The patient received one percent lidocaine to numb the skin and subcutaneous tissue. Using the[employer] guidance system A trocar was passed from the skin to the surface of the kidney under real-time ultrasound guidance. An 18-gauge automatedspring loaded biopsy needle was used. 6 passes yielded 3 small cores of the kidney. D-Stat was injected through the trocar which was then removed . The patient tolerated the procedure very well. A US scan postprocedure showed no significant perinephric hematoma. The patient was instructedto remain on absolute bed rest for 6 hours. A CBC will obtained in 6 hoursand tomorrow morning. The patient will remain in bed till next day morning. I was present and assisting for the entire procedure. > Interpreting Provider: Bryant Lozada MD on 01/16/2025 1:44 PM us Francia Hammonds MD IR ORDERABLES Edited Result - Final * (ABNORMAL) URINALYSIS NO MICROSCOPIC NO CULTURE (01/16/2025 8:39 AM CDT) Only the most recent of2 resultswithin the time period is included. Color UA Yellow Yellow, Straw 01/16/2025 8:48 AM [facility] Clarity UA Clear Clear 01/16/2025 8:48 AM [facility] Glucose UA Normal Normal 01/16/2025 8:48 AM [facility] Bilirubin UA Negative Negative 01/16/2025 8:48 AM [facility] Ketone UA Negative Negative 01/16/2025 8:48 AM [facility] Specific [place] UA 1.015 1.005 - 1.030 01/16/2025 8:48 AM [facility] Blood UA Negative Negative 01/16/2025 8:48 AM [facility] pH UA 5.5 5.0 - 8.0 01/16/2025 8:48 AM [facility] Protein UA 2+(A) Negative 01/16/2025 8:48 AM [facility] Urobilinogen UA Normal Normal mg/dL 025 8:48 AM [facility] Nitrite UA Negative Negative 01/16/2025 8:48 AM [facility] Leukocyte Esterase UA Negative Negative 01/16/2025 8:48 AM CDT [facility] Urine URINE SPECIMEN OBTAINED BY CLEAN CATCH PROCEDURE / Unknown Collection / Unknown 01/16/2025 8:39 AM CDT 01/16/2025 8:43 AM CDT us Francia Hammonds MD LAB - URINALYSIS ORDERABLES Fin al Result Performing Organization Address [facility] de Phone Number [address] [address], [facility] [phone] * PT-INR (01/16/2025 8:14 AM CDT) Only the most recent of3 resultswithin the time period is included. PT 13.8 12.1 - 14.8 Seconds 01/16/2025 8:49 AM CDT [facility] INR 1.1 See Comment 01/16/2025 8:49 AM T [facility] Comment:The suggested therap eutic range for standard coumadin (warfarin) therapy is an INR of 2.0-3.0. For high-risk patients (Mechanical Mitral Valve Prosthesis, etc.), the suggested prophylactic therapeutic range is an INR of 2.5-3.5. Blood BLOOD SPECIMEN / Unknown Venipuncture / Unknown 01/16/2025 8:14 AM CDT 01/16/2025 8:23 AM CDT us Francia Hammonds MD LAB - COAGULATION ORDERABLES Fi nal Result Performing Organization Address [facility] Co de Phone Number [address] [address], [facility] [phone] * (ABNORMAL) CBC W/O DIFFERENTIAL (01/16/2025 8:14 AM CDT) WBC 10.5 4.0 - 10.7 x10E9/L 01/16/2025 8:32 AM CDT [facility] RBC Count 3.38(L) 3.90 - 5.20 x10E12/L 01/16/2025 8:32 AM CDT [facility] Hemoglobin 10.1(L) 11.9 - 15.8 g/dL 01/16/2025 8:32 AM T [facility] Hematocrit 31.6(L) 34.8 - 46.1 % 01/16/2025 8:32 AM T [facility] MCV 93.5 80.0 - 98.0 fL 01/16/2025 8:32 AM T [facility] MCH 29.9 26.7 - 33.6 pg 01/16/2025 8:32 AM CDT [facility] MCHC 32.0 31.7 - 36.3 g/dL 01/16/2025 8:32 AM T [facility] RDW-CV 14.1 11.3 - 14.8 % 01/16/2025 8:32 AM T [facility] Platelet Count 190 150 - 420 x10E9/L 01/16/2025 8:32 AM T [facility] MPV 11.2 7.8 - 11.4 fL 01/16/2025 8:32 AM T [facility] Blood BLOOD SPECIMEN / Unknown Venipuncture / Unknown 01/16/2025 8:14 AM CDT 01/16/2025 8:24 AM CDT us Francia Hammonds MD LAB - HEMATOLOGY ORDERABLES Fin al Result [address] [address], [facility] [phone] * PHOSPHOLIPASE A2 RECEPTOR AB IGG RFLX TITER (01/05/2025 9:48 AM CDT) Phospholipase A2 Receptor IgG <1:10 <1:10 01/07/2025 4:12 PM CDT [facility] ([facility]) Comment: Clinical Interpretation: Phospholipase A2 Receptor Antibody, IgG is not detected. No further testing will be performed. Performed By: [facility] [address] [place] [id number] [employer] Grinder Machine: Wiliam Samuels MD, PhD CLIA Number: [id number] Blood BLOOD SPECIMEN / Unknown Lab Venipuncture / Unknown 01/05/2025 9:48 AM CDT 01/05/2025 10:14 AM CDT us Francia Hammonds MD LAB - CHEMISTRY ORDERABLES Kathleen palma Result [facility] ([facility]) [address] * (ABNORMAL) RENAL FUNCTION PANEL (01/05/2025 9:48 AM CDT) Only the most recent of2 resultswithin the time period is included. BUN 48(H) 7 - 26 mg/dL 01/05/2025 11:04 AM [facility] Creatinine 2.61(H) 0.56 - 0.96 mg/dL 01/05/2025 11:04 AM [facility] Sodium 141 136 - 145 mmol/L 01/05/2025 11:04 AM [facility] Potassium 4.1 3.5 - 4.5 mmol/L 01/05/2025 11:04 AM [facility] Chloride 108(H) 98 - 107 mmol/L 01/05/2025 11:04 AM [facility] CO2 23 22 - 29 mmol/L 01/05/2025 11:04 AM [facility] Glucose 92 70 - 99 mg/dL 01/05/2025 11:04 AM [facility] Albumin 3.4 3.4 - 5.0 g/dL 01/05/2025 11:04 AM [facility] Calcium 8.4 8.4 - 10.2 mg/dL 01/05/2025 11:04 AM [facility] Phosphorus 4.3 2.9 - 5.1 mg/dL 01/05/2025 11:04 AM [facility] Anion Gap 10 6 - 16 01/05/2025 11:04 AM [facility] BUN/Creatinine Ratio 18 7 - 23 01/05/2025 11:04 AM [facility] Osmolality Calculated 304(H) 275 - 295 mOsm/kg 01/05/2025 11:04 AM [facility] eGFR by CKD-EPI 19(L) >=90 mL/min/1.7 3 m2 01/05/2025 11:04 AM CDT [facility] Comment:Estimated Glomerular Filtration Rate (eGFR) calculated using the CKD-EPI Creatinine Equation (2020), per the National Kidney Foundation and [employer] Society of Nephrology recommendations. Blood BLOOD SPECIMEN / Unknown Lab Venipuncture / Unknown 01/05/2025 9:48 AM CDT 01/05/2025 10:17 AM CDT us Francia Hammonds MD LAB - CHEMISTRY ORDERABLES Kathleen palma Result [facility] [address] [place] [address], [facility] [phone] * ECHO COMPLETE (01/04/2025 11:14 AM CDT) Sinus of Valsalva 3.1 cm SS M CV FUJI PACS LV A2C EF 67.525 % SSM CV FUJ I PACS AV VTI 48.055 cm SSM CV FUJ I PACS AV pk jamir 259.741 cm/s SSM CV FUJ I PACS LV ESV A4C 50.526 ml SSM CV FU JI PACS AV area pk jamir 1.364 cm SSM CV FUJI PACS AV pk grad 26.986 mmHg SSM CV FU JI PACS AV area cont VTI 1.675 cm SSM CV FUJI PACS LV ESV A2C 35.492 ml SSM CV FU JI PACS LVOT VTI 22.754 cm SSM CV FUJ I PACS AV mn grad 9.698 mmHg SSM CV FU JI PACS LV biplane EF 62.91 % SSM CV FUJI PACS LA size 3.582 cm SSM CV FUJ I PACS Ascending aorta 3.566 cm SSM CV FUJI PACS LV A4C EF 60.081 % SSM CV FUJ I PACS MV mn grad 1.799 mmHg SSM CV FU JI PACS IVSd 2D 1.342 cm SSM CV FUJ I PACS LV EDV A2C 109.289 ml SSM CV FU JI PACS LVOT pk grad 3.035 mmHg SSM CV FUJI PACS LVOT diam 2.122 cm SSM CV FUJ I PACS TR pk jamir 160.247 cm/s SSM CV FUJ I PACS LVIDs 2.505 cm SSM CV FUJ I PACS LVPWd 1.315 cm SSM CV FUJ I PACS LVIDd 4.028 cm SSM CV FUJ I PACS TAPSE 2.854 cm SSM CV FUJ I PACS IVC Diam Expiration 1.477 cm SSM CV FUJI PACS LA vol BP 47.613 ml SSM CV FUJ I PACS MV E' lateral jamir 5.083 cm/s SS M CV FUJI PACS LV EDV A4C 126.569 ml SSM CV FU JI PACS LVOT pk jamir 100.193 cm/s SSM CV F UJI PACS MV VTI 44.787 cm SSM CV FUJ I PACS PV pk jamir 136.128 cm/s SSM CV FUJ I PACS RA area 15.146 cm SSM CV FUJI PACS RV-glass basal diam 2.557 cm SSM CV FUJI PACS AV area index 0.918 cm /m SSM CV FUJI PACS LA vol index 0.026 l/m SSM CV FUJI PACS Dimensionless Index 0.474 unitless SSM CV FUJI PACS Myocardial strain charge 2 unitless SSM CV FUJI PACS Anatomical Region Laterality Modality Ultrasound 01/04/2025 11:1 4 AM CDT Narrative 01/04/2025 4:29 PM CDT Summary * The left ventricle is normal in size, with normal systolic function and an estimated ejection fraction of 63 % by biplane method of disks. Left ventricular wall motion is normal. * The left ventricular diastolic function is normal. * Right ventricle is normal in size with normal systolic function. * There is mild aortic valve stenosis with a peak velocity of 2.6 m/s, mean gradient of 10 mmHg, and aortic valve area of 1.67 cm2. 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 Staff Referring Physician: Andrés Kaye Ordering Provider: Andrés Kaye [employer] Research Technician: Kendal Orr Left Ventricle The left ventricle is normal in size. Left ventricular systolic function is normal with an estimated ejection fraction of 63 % by biplane method of disks. The left ventricular mass is normal. Left ventricular segmental wall motion is normal. The left ventricular diastolic function is normal. Left ventricular wall thickness is mildly increased. Right Ventricle The right ventricle is normal in size. Right ventricular systolic function is normal. Left Atrium The left atrium is normal in size with a left atrial volume index of 26 ml/m2 by BP MOD. Right Atrium The right atrium is normal in size. Atrial Septum Intact interatrial septum visualized by 2D and color Doppler imaging. Aortic Valve The aortic valve is trileaflet. There is no aortic valve regurgitation. There is mild aortic valve stenosis with a peak velocity of 2.6 m/s, mean gradient of 10 mmHg, and aortic valve area of 1.67 cm2. Pulmonic Valve The pulmonic valve is normal. There is no pulmonic valve stenosis. There is trace pulmonic regurgitation. Mitral Valve The mitral valve is normal. There is no mitral valve stenosis. There is no mitral valve regurgitation. Tricuspid Valve The tricuspid valve is normal. There is trace tricuspid valve regurgitation. Unable to calculate the pulmonary artery systolic pressure due to a lack of tricuspid regurgitation. Inferior Vena Cava The inferior vena cava is normal in size (< 2.1 cm). There is < 50% collapse of the IVC upon inspiration with an estimated right atrial pressure of 3 mmHg. Pericardium/Pleural There is no pericardial effusion. Aorta The aortic root at the sinus of Valsalva is normal in size. The ascending aorta is normal in size. Measurements Left Ventricular Outflow Tract Name Value Normal LVOT 2D LVOT Diameter 2.1 cm LVOT Area 3.5 cm2 LVOT Doppler LVOT Peak Velocity 1.0 m/s LVOT Peak Gradient 3 mmHg LVOT Mean Velocity 67.28 cm/s LVOT Mean Gradient 3 mmHg LVOT VTI 22.8 cm LVOT VTI/AV VTI Ratio 0.5 LVOT Stroke Volume 80 ml LVOT Stroke Volume Index 44 ml/m2 35-58 LVOT CO 3.8 l/min LVOT CI 2.1 l/min/m2 Pulmonic Valve Name Value Normal PV Doppler PV Peak Velocity 1.4 m/s PV Peak Gradient 6 mmHg PV Mean Gradient 4 mmHg PV Accel Time 91.34 ms Mitral Valve Name Value Normal MV Doppler MV Peak Gradient 5 mmHg MV Mean Gradient 2 mmHg MV DI (VTI) 1.97 MV PHT 84 ms MV Area (PHT) 2.62 cm2 4.00-5.00 MV Area (Cont Eq VTI) 1.80 cm2 MV Annular TDI MV Septal e' Velocity 7 cm/s >=8 MV Lateral e' Velocity 5 cm/s >=10 MV e' Average 6 cm/s Tricuspid Valve Name Value Normal TV Regurgitation Doppler TR Peak Velocity 1.6 m/s TR Peak Gradient 10 mmHg Estimated PAP/RSVP RA Pressure 3 mmHg <=5 PA Systolic Pressure 13 mmHg <35 RV Systolic Pressure 13 mmHg <36 TV Annular TDI TV Lateral Svetlana s' Velocity 13 cm/s 10-19 Pulmonary Vessels Name Value Normal Pulmonary Veins Pulm Vein Peak Systolic Velocity 58.6 cm/s Pulm Vein Peak Diastolic Velocity 43.5 cm/s Pulm Vein S/D Velocity Ratio 1 Pulm Vein Ar Velocity 27.3 cm/s Aorta Name Value Normal Ascending Aorta Ao Root Diameter (2D) 3.1 cm Ao Root Diam Index (2D) 1.7 cm/m2 Sinus of Valsalva Diameter 3.1 cm 2.4-3.6 Sinus of Valsalva Index 1.7 cm/m2 1.4-2.2 Asc Ao Diameter 3.6 cm 1.9-3.5 Asc Ao Diameter Index 2.0 cm/m2 1.0-2.2 Venous Name Value Normal IVC/SVC IVC Diameter 1.5 cm <=2.1 Aortic Valve Name Value Normal AV Doppler AV Peak Velocity 2.60 m/s AV Peak Gradient 27 mmHg AV Mean Gradient 10 mmHg AV VTI 48 cm AV Area (Cont Eq VTI) 1.67 cm2 >=2.00 AV Area (Cont Eq Jamir) 1.36 cm2 AV DI (VTI) 0.47 AV DI (Jamir) 0.39 AV Regurgitation 2D LVOT Area 3.54 cm2 Ventricles Name Value Normal LV Dimensions 2D/MM IVS Diastolic Thickness (2D) 1.3 cm 0.6-0.9 LVID Diastole (2D) 4.0 cm 3.8-5.2 LVPW Diastolic Thickness (2D) 1.3 cm 0.6-0.9 LVID Systole (2D) 2.5 cm 2.2-3.5 LV Mass (2D Cubed) 195 g 67-162 LV Mass Index (2D Cubed) 107 g/m2 43-95 Relative Wall Thickness (2D) 0.65 <=0.42 LV Fractional Shortening/Ejection Fraction 2D/MM LV Fractional Shortening (2D) 38 % 27-45 LV EF (2D Teicholz) 68 % 54-74 LV Diastolic Volume (4C MOD) 127 ml LV EF (4C MOD) 60 % LV Diastolic Volume (2C MOD) 109 ml LV EF (2C MOD) 68 % LV Diastolic Volume (BP MOD) 120 ml 46-106 LV Diastolic Volume Index (BP MOD) 66 ml/m2 29-61 LV Systolic Volume (BP MOD) 44 ml 14-42 LV Systolic Volume Index (BP MOD) 24 ml/m2 8-24 LV EF (BP MOD) 63 % 54-74 LV Diastolic Length (4C) 8.2 cm LV Systolic Length (4C) 6.7 cm LV Stroke Volume (4C MOD) 76 ml RV Dimensions 2D/MM RV Basal Diastolic Dimension 2.6 cm 2.5-4.1 RV Diastolic Length (4C) 6.7 cm 5.9-8.3 TAPSE 2.9 cm >=1.7 Atria Name Value Normal LA Dimensions LA Dimension (2D) 3.6 cm 2.7-3.8 LA Dimen Index (2D) 2.0 cm/m2 LA Volume (BP MOD) 48 ml LA Volume Index (BP MOD) 26 ml/m2 16-34 RA Dimensions RA Area (4C) 15 cm2 <=18 RA Area (4C) Index 8 cm2/m2 RA ESV (4C MOD) 35 ml 15-27 RA ESV Index (4C MOD) 19 ml/m2 16-34 Report Signatures Finalized by Aldair Rivera DR on 01/04/2025 04:29 PM Procedure Note Aldair Rivera MD - 01/04/2025 Summary * The left ventricle is normal in size, with normal systolic functionand an estimated ejection fraction of 63 % by biplane method of disks. Left ventricular wall motion is normal. * The left ventricular diastolic function is normal. * Right ventricle is normal in size with normal systolic function. * There is mild aortic valve stenosis with a peak velocity of 2.6 m/s,mean gradient of 10 mmHg, and aortic valve area of 1.67 cm2. 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 Staff Referring Physician: Andrés Kaye Ordering Provider: Andrés Kaye [employer] Research Technician: Kendal Orr Left Ventricle The left ventricle is normal in size. Left ventricular systolic functionis normal with an estimated ejection fraction of 63 % by biplane method ofdisks. The left ventricular mass is normal. Left ventricular segmental wallmotion is normal. The left ventricular diastolic function is normal. Leftventricular wall thickness is mildly increased. Right Ventricle The right ventricle is normal in size. Right ventricular systolicfunction is normal. Left Atrium The left atrium is normal in size with a left atrial volume index of26 ml/m2 by BP MOD. Right Atrium The right atrium is normal in size. Atrial Septum Intact interatrial septum visualized by 2D and color Doppler imaging. Aortic Valve The aortic valve is trileaflet. There is no aortic valveregurgitation. There is mild aortic valve stenosis with a peak velocity of 2.6 m/s,mean gradient of 10 mmHg, and aortic valve area of 1.67 cm2. Pulmonic Valve The pulmonic valve is normal. There is no pulmonic valve stenosis. Thereis trace pulmonic regurgitation. Mitral Valve The mitral valve is normal. There is no mitral valve stenosis. There isno mitral valve regurgitation. Tricuspid Valve The tricuspid valve is normal. There is trace tricuspid valveregurgitation. Unable to calculate the pulmonary artery systolic pressure due to a lackof tricuspid regurgitation. Inferior Vena Cava The inferior vena cava is normal in size (< 2.1 cm). There is < 50%collapse of the IVC upon inspiration with an estimated right atrial pressure of 3mmHg. Pericardium/Pleural There is no pericardial effusion. Aorta The aortic root at the sinus of Valsalva is normal in size. Theascending aorta is normal in size. Measurements Left Ventricular Outflow Tract Name Value Normal LVOT 2D LVOT Diameter 2.1 cm LVOT Area 3.5 cm2 LVOT Doppler LVOT Peak Velocity 1.0 m/s LVOT Peak Gradient 3 mmHg LVOT Mean Velocity 67.28 cm/s LVOT Mean Gradient 3 mmHg LVOT VTI 22.8 cm LVOT VTI/AV VTI Ratio 0.5 LVOT Stroke Volume 80 ml LVOT Stroke Volume Index 44 ml/m2 35-58 LVOT CO 3.8 l/min LVOT CI 2.1 l/min/m2 Pulmonic Valve Name Value Normal PV Doppler PV Peak Velocity 1.4 m/s PV Peak Gradient 6 mmHg PV Mean Gradient 4 mmHg PV Accel Time 91.34 ms Mitral Valve Name Value Normal MV Doppler MV Peak Gradient 5 mmHg MV Mean Gradient 2 mmHg MV DI (VTI) 1.97 MV PHT 84 ms MV Area (PHT) 2.62 cm2 4.00-5.00 MV Area (Cont Eq VTI) 1.80 cm2 MV Annular TDI MV Septal e' Velocity 7 cm/s >=8 MV Lateral e' Velocity 5 cm/s >=10 MV e' Average 6 cm/s Tricuspid Valve Name Value Normal TV Regurgitation Doppler TR Peak Velocity 1.6 m/s TR Peak Gradient 10 mmHg Estimated PAP/RSVP RA Pressure 3 mmHg <=5 PA Systolic Pressure 13 mmHg <35 RV Systolic Pressure 13 mmHg <36 TV Annular TDI TV Lateral Svetlana s' Velocity 13 cm/s 10-19 Pulmonary Vessels Name Value Normal Pulmonary Veins Pulm Vein Peak Systolic Velocity 58.6 cm/s Pulm Vein Peak Diastolic Velocity 43.5 cm/s Pulm Vein S/D Velocity Ratio 1 Pulm Vein Ar Velocity 27.3 cm/s Aorta Name Value Normal Ascending Aorta Ao Root Diameter (2D) 3.1 cm Ao Root Diam Index (2D) 1.7 cm/m2 Sinus of Valsalva Diameter 3.1 cm 2.4-3.6 Sinus of Valsalva Index 1.7 cm/m2 1.4-2.2 Asc Ao Diameter 3.6 cm 1.9-3.5 Asc Ao Diameter Index 2.0 cm/m2 1.0-2.2 Venous Name Value Normal IVC/SVC IVC Diameter 1.5 cm <=2.1 Aortic Valve Name Value Normal AV Doppler AV Peak Velocity 2.60 m/s AV Peak Gradient 27 mmHg AV Mean Gradient 10 mmHg AV VTI 48 cm AV Area (Cont Eq VTI) 1.67 cm2 >=2.00 AV Area (Cont Eq Jamir) 1.36 cm2 AV DI (VTI) 0.47 AV DI (Jamir) 0.39 AV Regurgitation 2D LVOT Area 3.54 cm2 Ventricles Name Value Normal LV Dimensions 2D/MM IVS Diastolic Thickness (2D) 1.3 cm 0.6-0.9 LVID Diastole (2D) 4.0 cm 3.8-5.2 LVPW Diastolic Thickness (2D) 1.3 cm 0.6-0.9 LVID Systole (2D) 2.5 cm 2.2-3.5 LV Mass (2D Cubed) 195 g 67-162 LV Mass Index (2D Cubed) 107 g/m2 43-95 Relative Wall Thickness (2D) 0.65 <=0.42 LV Fractional Shortening/Ejection Fraction 2D/MM LV Fractional Shortening (2D) 38 % 27-45 LV EF (2D Teicholz) 68 % 54-74 LV Diastolic Volume (4C MOD) 127 ml LV EF (4C MOD) 60 % LV Diastolic Volume (2C MOD) 109 ml LV EF (2C MOD) 68 % LV Diastolic Volume (BP MOD) 120 ml 46-106 LV Diastolic Volume Index (BP MOD) 66 ml/m2 29-61 LV Systolic Volume (BP MOD) 44 ml 14-42 LV Systolic Volume Index (BP MOD) 24 ml/m2 8-24 LV EF (BP MOD) 63 % 54-74 LV Diastolic Length (4C) 8.2 cm LV Systolic Length (4C) 6.7 cm LV Stroke Volume (4C MOD) 76 ml RV Dimensions 2D/MM RV Basal Diastolic Dimension 2.6 cm 2.5-4.1 RV Diastolic Length (4C) 6.7 cm 5.9-8.3 TAPSE 2.9 cm >=1.7 Atria Name Value Normal LA Dimensions LA Dimension (2D) 3.6 cm 2.7-3.8 LA Dimen Index (2D) 2.0 cm/m2 LA Volume (BP MOD) 48 ml LA Volume Index (BP MOD) 26 ml/m2 16-34 RA Dimensions RA Area (4C) 15 cm2 <=18 RA Area (4C) Index 8 cm2/m2 RA ESV (4C MOD) 35 ml 15-27 RA ESV Index (4C MOD) 19 ml/m2 16-34 Report Signatures Finalized by Aldair Rivera DR on 01/04/2025 04:29 PM us Andrés Kaye MD ECHO CUPID Final Result * US Kidney With Doppler Complete (11/30/2024 4:04 PM CDT) Anatomical Region Laterality Modality Abdomen Ultrasound 11/30/2024 4:20 PM CDT Impressions 11/30/2024 4:53 PM CDT [...] proteinuria N18.32: Chronic kidney disease, stage 3b ([facility]) COMPARISON: 07/17/2023 FINDINGS: Retroperitoneum: Right kidney: 9.0 [...] Swetha Castro MD on 11/30/2024 4:53 PM [facility] ORDERABLES Final Result * ENDOSCOPY, COLON, SCREENING (11/17/2024 1:14 PM CDT) Report Endoscopy POC Endoscopy Department Report _ Patient Name: Eduarda Yusuf Procedure Date: 11/17/2024 1:14 PM Date of : 1955 Classification: Outpatient Gender: Female Ethnicity: Not or Race: or [place] _ Providers: Jewel Dooley MD, Joni Corrales [...] and oxygen saturations were monitored continuously. The [id number] was introduced through the anus and advanced to the cecum, identified by appendiceal orifice and ileocecal valve. The colonoscopy was performed without difficulty. The patient tolerated the procedure well. The quality of the bowel preparation was evaluated using the BBPS (Dougherty Bowel Preparation Scale) with scores of: Right [...] non-berrios portions. Procedure Code(s): --- Professional --- 61584, Colonoscopy, flexible; with removal of tumor(s), polyp(s), or other lesion(s) by snare technique Diagnosis Code(s): --- Professional --- Z12.11, Encounter for screening for malignant neoplasm of colon K64.0, First degree hemorrhoids D12.2, Benign neoplasm of ascending colon D12.3, Benign neoplasm of transverse colon (hepatic flexure or splenic flexure) K57.30, Diverticulosis of large intestine without perforation or abscess without bleeding CPT copyright 2021 [employer]. All rights reserved. The codes documented in this report are preliminary and upon tag maker review may be revised to meet current compliance requirements. Jewel Dooley MD 11/17/2024 2:56:01 PM Note Initiated On: 11/17/2024 1:14 PM Number of Addenda: [address] PROVATION 11/17/2024 1:14 PM CDT Jewel Dooley MD GI PROCEDURE ORDERABLES Edited Result - Final Performing Organization Address [facility]/ZIP Co de Phone Number [facility] PROVATION * PROTEIN ELECTROPHORESIS URINE RANDOM (11/11/2024 2:05 PM CDT) Interpretation Urine PE See Comment Normal Pattern 11/14/2024 6:07 PM CDT [facility] Comment: Urine protein electrophoresis shows a band corresponding to albumin with small amounts of other nonspecific proteinuria. No monoclonal immunoglobulins detected. Mello Carmona PhD, [facility] Clinical Digital Production Artist negative notcher Protein Urine 212 Not Established mg/dL 11/14/2024 6:07 PM CDT [facility] Comment:Result obtained by jose e quan. Urine URINE SPECIMEN OBTAINED BY CLEAN CATCH PROCEDURE / Unknown Collection / Unknown 11/11/2024 2:05 PM CDT 11/11/2024 2:11 PM CDT us Adarsh Menendez MD LAB - URINE CHEMISTRY ORDERABLES Final Result Performing Organization Address [facility]/ZIP Co de Phone Number [address] [address], [facility] [phone] * (ABNORMAL) MICROALB/CREAT RATIO URINE RANDOM PANEL (11/11/2024 2:05 PM CDT) Albumin Random Urine 1,612.1 Not Established ug/mL 11/11/2024 3:07 PM CDT [facility] Creatinine Urine 109.89 Not Established mg/dL 11/11/2024 3:07 PM CDT [facility] Urine Albumin/Creati nine Ratio 1,467(H) <30 mg/g 11/11/2024 3:07 PM CDT [facility] Urine URINE SPECIMEN OBTAINED BY CLEAN CATCH PROCEDURE / Unknown Collection / Unknown 11/11/2024 2:05 PM CDT 11/11/2024 2:11 PM CDT us Adarsh Menendez MD LAB - URINE CHEMISTRY ORDERABLES Final Result [facility] [address] [address], [facility] [phone] * DNA ANTIBODY DS CRITHIDIA TITER (11/11/2024 1:28 PM CDT) dsDNA Antibody IgG <1:10 <1:10 2024 3:11 PM CDT [facility] [employer] ([facility]) Comment: INTERPRETIVE INFORMATION: Double-Stranded DNA (dsDNA) Antibody, [...] recommendations for testing may be found at [email or web address]. Performed By: [facility] [address] [place] [address] Knife Setter Grinder Machine: Wiliam Samuels MD, PhD CLIA Number: [id number] Blood BLOOD SPECIMEN / Unknown Lab Venipuncture / Unknown 11/11/2024 1:28 PM CDT 11/11/2024 1:30 PM CDT us Adarsh Menendez MD LAB - SEROLOGY ORDERABLES Final Result [employer] ([facility]) [address] [place] [address] * HEPATITIS B SURFACE ANTIBODY QUANT (11/11/2024 1:28 PM CDT) Hepatitis B Virus Surface Antibody Non-react reji Non-react reji 11/11/2024 2:35 PM CDT [facility] Comment: < 8 mIU/mL Hepatitis B surface Antibody (HBsAb). Nonreactive for HBsAb - individual is considered not immune to Hepatitis B Virus infection. Hepatitis B Surface Antibody Quantitative <3.0 <8.0 mIU/mL 11/11/2024 2:35 PM CDT [facility] Comment: Hepatitis B Surface Antibody Numeric Result Interpretation: Nonreactive: <8.0 mIU/mL Indeterminate: 8.0 - 12.0 mIU/mL Reactive: >12.0 mIU/mL Blood BLOOD SPECIMEN / Unknown Lab Venipuncture / Unknown 11/11/2024 1:28 PM CDT 11/11/2024 1:30 PM CDT Narrative [facility] - 11/11/2024 2:35 PM CDT This assay should not be used for blood, plasma, or tissue donor screening. This assay is not recommended for neonates born to HBV-infected or suspected HBV-infected mothers. Adarsh Menendez MD LAB - SEROLOGY ORDERABLES Final Result [facility] [address] [place] [id number], [facility] [phone] * RUDY BLOOD SCREEN W/REFLEX TITER (11/11/2024 1:28 PM CDT) RUDY IgG None Detected None Detected 11/13/2024 12:36 AM CDT [employer] ([facility]) Comment: No Anti-Nuclear Antibodies (RUDY) detected by . No further testing will be performed. If suspicion of connective tissue disease is strong and RUDY is negative, consider testing for RUDY by IFA ([id number]). INTERPRETIVE INFORMATION: Anti-Nuclear Antibodies (RUDY), IgG by Antinuclear Antibodies (RUDY), IgG by : RUDY specimens are screened using enzyme-linked immunosorbent assay () methodology. All results reported as Detected are further tested by indirect fluorescent assay (IFA) using HEp-2 substrate with an IgG-specific conjugate. The RUDY screen is designed to detect antibodies against dsDNA, histones, SS-A (Ro), SS-B (La), Gutiérrez, Gutiérrez/COTTRELL BLOWER, Scl-70, Pauline-1, centromeric proteins, other antigens extracted from the HEp-2 cell nucleus. RUDY assays have been reported to have lower sensitivities than RUDY IFA for systemic autoimmune rheumatic diseases (SARD). Negative results do not necessarily rule out SARD. Performed By: [facility] [address] [place] [address] Knife Setter Grinder Machine: Wiliam Samuels MD, PhD CLIA Number: [id number] Blood BLOOD SPECIMEN / Unknown Lab Venipuncture / Unknown 11/11/2024 1:28 PM CDT 11/11/2024 1:30 PM CDT Adarsh Menendez MD LAB - CHEMISTRY ORDERABLES Final Result [employer] [employer] ([facility]) [address] [place] [address], [facility] * GLOMERULAR BASE MEMBRANE ANTIBODY IGG (11/11/2024 1:28 PM CDT) GBM Antibody IgG (EU) 0 0 - 19 AU/mL 11/13/2024 11:53 AM CDT [employer] ([facility]) Comment: INTERPRETIVE INFORMATION: GBM Ab, IgG by [...] and assessment of renal prognosis. Performed By: [facility] [address] [place] [address] Knife Setter Grinder Machine: Wiliam Samuels MD, PhD CLIA Number: [id number] Blood BLOOD SPECIMEN / Unknown Lab Venipuncture / Unknown 11/11/2024 1:28 PM CDT 11/11/2024 1:30 PM CDT Adarsh Menendez MD LAB - CHEMISTRY ORDERABLES Final Result Performing Organization Address City/[facility]/ZIP Co de Phone Number [facility] [employer] ([facility]) [address] * MPO/SC 3 AUTOANTIBODIES PANEL (11/11/2024 1:28 PM CDT) Pathologist [facility] Serine Proteinase 3 IgG 0 0 - 19 AU/mL 11/14/2024 1:58 PM CDT [facility] ([facility]) Comment: INTERPRETIVE INFORMATION: Serine Proteinase 3, IgG 19 AU/mL or Less ........ Negative 20-25 AU/mL ............. Equivocal 26 AU/mL or Greater ..... Positive Approximately 85% of patients with a C-ANCA pattern by IFA have antibodies specific for PR3. Performed By: [place] [address] Knife Setter Grinder Machine: Wiliam Samuels MD, PhD CLIA Number: [id number] Myeloperoxidase Antibody 0 0 - 19 AU/mL 11/14/2024 1:58 PM CDT [facility] ([facility]) Comment: INTERPRETIVE INFORMATION: Myeloperoxidase Abs, IgG 19 [...] CHEMISTRY ORDERABLES Final Result Performing Organization Address City/[facility] de Phone Number [facility] ([facility]) [address] * (ABNORMAL) KAPPA/LAMBDA LITE CHAIN FREE PANEL (11/11/2024 1:28 PM CDT) Devola Quant Free Light Chain 71.32(H) 3.30 - 19.40 mg/L 11/13/2024 4:43 AM CDT [facility] ([facility]) Comment: INTERPRETIVE INFORMATION: Devola Qnt Free Light Chains Undetected antigen excess is a rare event but cannot be excluded. Free light chain results should always be interpreted in conjunction with other clinical and laboratory findings. Lambda Free Light Chain Quantitative 95.20(H) 5.71 - 26.30 mg/L 11/13/2024 4:43 AM CDT [facility] ([facility]) Comment: INTERPRETIVE INFORMATION: Lambda Qnt Free Light Chains Undetected antigen excess is a rare event but cannot be excluded. Free light chain results should always be interpreted in conjunction with other clinical and laboratory findings. Devola/Lambda Free Light Chain ratio 0.75 0.26 - 1.65 11/13/2024 4:43 AM CDT [facility] ([facility]) Comment: Performed By: [place] [address] Knife Setter Grinder Machine: Wiliam Samuels MD, PhD CLIA Number: [id number] Blood BLOOD SPECIMEN / Unknown Lab Venipuncture / Unknown 11/11/2024 1:28 PM CDT 11/11/2024 1:30 PM CDT us Adarsh Menendez MD LAB - CHEMISTRY ORDERABLES Final Result Performing Organization Address City/[facility]/ZIP Co de Phone Number [facility]) [address] [place] [address] * COMPLEMENT C4 (11/11/2024 1:28 PM CDT) Complement C4 35 15 - 57 mg/dL 11/11/2024 2:02 PM CDT [facility] Blood BLOOD SPECIMEN / Unknown Lab Venipuncture / Unknown 11/11/2024 1:28 PM CDT 11/11/2024 1:35 PM CDT us Adarsh Menendez MD LAB - SEROLOGY ORDERABLES Final Result [facility] [address] [place] [address], [place] [phone] * HEPATITIS B SURFACE ANTIGEN W RFLX CONFIRMATION (11/11/2024 1:28 PM CDT) Hepatitis B Virus Surface Antigen Non-reacti ve Non-reacti ve 11/11/2024 2:33 PM CDT [facility] Blood BLOOD SPECIMEN / Unknown Lab Venipuncture / Unknown 11/11/2024 1:28 PM CDT 11/11/2024 1:30 PM CDT Adarsh Menendez MD LAB - CHEMISTRY ORDERABLES Final Result [facility] [address] [place] [address], [facility] [phone] * (ABNORMAL) PROTEIN ELECTROPHORESIS BLOOD (11/11/2024 1:28 PM CDT) Pathologist [facility] Interpretation Serum PE Abnormal Pattern(A) Normal Pattern 11/14/2024 6:00 PM CDT [facility] Comment: Serum capillary electrophoresis shows characteristic bands corresponding to albumin, alpha and beta globulins and polyclonal immunoglobulins. There is a band of restricted electrophoretic mobility in the gamma region previously identified as an IgG lambda monoclonal immunoglobulin. Mello Carmona PhD, [facility] Clinical Digital Production Artist negative notcher *The electrophoresis pattern and the interpretation have been reviewed and verified by the teaching physician. Protein Total 6.3 6.0 - 8.3 g/dL 11/14/2024 6:00 PM T [facility] Albumin 3.2(L) 3.3 - 5.6 g/dL 11/14/2024 6:00 PM T [facility] Alpha-1 Globulins 0.4 0.2 - 0.4 g/dL 11/14/2024 6:00 PM T [facility] Alpha-2 Globulins 0.9 0.5 - 1.0 g/dL 11/14/2024 6:00 PM T [facility] Beta Globulins 0.8 0.6 - 1.1 g/dL 11/14/2024 6:00 PM T [facility] Gamma Globulins 1.0 0.6 - 1.6 g/dL 11/14/2024 6:00 PM CDT [facility] Monoclonal Component(s) 0.4(H) None Detected g/dL 11/14/2024 6:00 PM CDT [facility] Blood BLOOD SPECIMEN / Unknown Lab Venipuncture / Unknown 11/11/2024 1:28 PM CDT 11/11/2024 1:30 PM CDT us Adarsh Menendez MD LAB - CHEMISTRY ORDERABLES Final Result [address] [address], [facility] [phone] * HEPATITIS C ANTIBODY (11/11/2024 1:28 PM CDT) Pathologist [facility] Hepatitis C Antibody Non-react reji Non-reac tive 11/11/2024 2:33 PM CDT [facility] Comment:Hepatitis C Antibody screen indicates no serologic [...] MD LAB - CHEMISTRY ORDERABLES Final Result [address] [address], [facility] [phone] * COMPLEMENT C3 (11/11/2024 1:28 PM CDT) Complement C3 144 82 - 193 mg/dL 11/11/2024 2:02 PM CDT [facility] Blood BLOOD SPECIMEN / Unknown Lab Venipuncture / Unknown 11/11/2024 1:28 PM CDT 11/11/2024 1:35 PM CDT us Adarsh Menendez MD LAB - CHEMISTRY ORDERABLES Final Result [facility] [address] [place] [address], [facility] [phone] from Last 3 Months Insurance MEDICAID - [place] MEDICARE Advance Directives * Full Code (Latest Code Status on File) Date Activated Date Inactivated Comments 01/16/2025 10:35 AM 01/17/2025 3:49 PM * Full Code Date Activated Date Inactivated Comments 08/17/2023 9:20 AM 08/17/2023 2:23 PM * Full Code Date Activated Date Inactivated Comments 08/17/2023 9:06 AM 08/17/2023 9:20 AM * Full Code Date Activated Date Inactivated Comments 07/01/2022 12:41 PM 07/01/2022 3:54 PM Care Teams Seat Cover Installer Relationship Specialty Start Date End Date Saul Marcelino MD [address] [place] [phone] PCP - General Family Medicine 04/20/24 Francia Hammonds MD [address] [place] [address] 3 [place] [address] Cement Production Plant Operator Nephrology 11/24/24 Andre Mccann MD [address] [place] [phone] Hematology and Oncology 11/24/24 Ana Andersen MD [address] [place] [address] Hematology and Oncology 11/24/24 Vincent Sandra MD [address] [place] [address] Bottle Dealer/Oncologis t Hematology and Oncology 11/24/24 Joan Wood MD [address] [place] [address], [place] [address] Bottle Dealer/Oncologis t Hematology and Oncology 11/24/24 Lyudmila Bangura MD [address] [facility] 3 [place] [address] Physician Hematology and Oncology 11/24/24 Gloria Alatorre MD [address] [place] [phone] Physician Hematology and Oncology 11/24/24 Mony Zaldivar, PharmD 11/24/24 Shirley Barahona, PharmD Pharmacist 11/24/24 Anastacia Garces RN Registered Nurse 11/24/24 Tabatha Solorzano 11/24/24 Ness Ortiz 11/24/24 Grisel Dobbins, RESEARCH FOOD TECHNOLOGIST-STRATEGIC PLANNING SPECIALIST [facility] [place] [address] Nurse Practitioner Nurse Practitioner 11/24/24 Nannette Joshi, RN Registered Nurse 11/24/24 Sylwia Lovelace LCSW [address] [place] [address] Management Trainee Marketing 11/24/24 Saul Marcelino MD [address] [place] [address] Family Medicine 01/05/25
--- NOTE | 2025-02-07 18:06 | ED.GENADULT ---
HPI - General Adult General Chief complaint: Unspecified Stated complaint: nerve pain, malodorous urine Time Seen by Provider: 02/07/25 17:44 History of Present Illness HPI narrative: Patient is a 69-year-old female who presents to the ER with neck pain, right hand numbness/tingling with decreased strength that has now radiated to her left arm, and green urine. She reports she had a fall [address] scan showed that C5-C7 were fused, but she reports she has never had a fusion. Upon further inquiry, it was discovered patient tore a muscle/tendon in her right bicep approximately 1 and half years ago and has gone through physical therapy. Her right wrist pain and loss of strength has been present since then. Patient also reports she sees Nephrology at [facility] and recently had a kidney biopsy, which indicated she has many cysts and stage 4 CKD. She reports she is not on dialysis. Patient sources a history of cochlear implant, vertigo, Meniere's disease, Parkinson's, tardive dyskinesia, cardiac stents. She denies any recent fevers, loss of continence, acute neuro changes, or chest pain. Related Data Home Medications ?Medication ?Instructions ?Recorded ?Confirmed ?Last Taken ?Type aspirin 81 mg tablet,delayed 81 mg PO DAILY 05/02/21 12/28/24 12/13/24 History release sertraline 100 mg tablet 150 mg PO DAILY 08/28/22 12/28/24 12/13/24 History isosorbide mononitrate 60 mg 120 mg PO DAILY 10/29/22 12/28/24 12/13/24 History tablet,extended release 24 hr albuterol sulfate 90 mcg/actuation 2 puff inhalation Q4H PRN 10/13/23 12/28/24 12/13/24 History aerosol inhaler Shortness Of Breath amantadine HCl 100 mg capsule 100 mg PO QHS 10/13/23 12/28/24 12/12/24 History atorvastatin 80 mg tablet 80 mg PO QHS 10/13/23 12/28/24 12/12/24 History topiramate 25 mg tablet 50 mg PO Q12H 10/13/23 12/28/24 12/13/24 History trazodone 100 mg tablet 100 mg PO QHS PRN Sleep 10/13/23 12/28/24 12/12/24 History nitroglycerin 0.4 mg BYMOUTH PRN PRN Angina 11/17/23 12/28/24 10/04/24 History acetaminophen 500 mg tablet 500 mg PO Q6H PRN headache 12/01/23 12/28/24 Unknown History (Tylenol Extra Strength) Vitamin K 100 mcg BYMOUTH DAILY 12/13/24 12/28/24 12/13/24 History naloxegol 12.5 mg tablet (Movantik) 12.5 mg PO DAILY@0630 12/13/24 12/28/24 12/13/24 History ropinirole 0.25 mg tablet 0.25 mg PO .daily hs 12/13/24 12/28/24 12/12/24 History sodium bicarbonate 650 mg tablet 650 mg PO BID 12/13/24 12/28/24 12/13/24 History umeclidinium 62.5 mcg-vilanterol 1 inh inhalation Q24H 12/13/24 12/28/24 12/13/24 History 25 mcg/actuation powdr for inhalation (Anoro Ellipta) valbenazine 80 mg capsule 80 mg PO DAILY 12/13/24 12/28/24 12/13/24 History (Ingrezza) Allergies Allergy/AdvReac Type Severity Reaction Status Date / Time adhesive tape Allergy Mild rash Verified 12/13/24 17:05 tetanus immune globulin Allergy Mild HIVES Verified 12/13/24 17:05 cyclobenzaprine Allergy Unknown TINGLING Verified 12/13/24 17:05 SENSATION IN EXTREMITIES fluoxetine Allergy Unknown Rash,Swelli Verified 12/13/24 17:05 ng tetanus and diphtheria Allergy Unknown Swelling Verified 12/13/24 17:05 toxoids Tetanus Vaccines and Toxoid Allergy Unknown rash Verified 12/13/24 17:05 bupropion (From Wellbutrin) Allergy dizzy Verified 12/13/24 17:05 Review of Systems Review of Systems: All systems reviewed & are unremarkable except as noted in HPI and below PMFSH Past Medical History Medical History Coronary artery disease Obstructive sleep apnea on CPAP Cancer of left breast Coronary artery disease On home O2 at night Seronegative rheumatoid arthritis of both hands Tardive dyskinesia Lumbar degenerative disc disease Degenerative cervical disc Menieres disease Adenomatous colon polyp Gastroparesis Gastritis Parkinson disease Constipation Inflammatory arthritis Bipolar disorder, unspecified Chronic kidney disease, stage 3 (moderate) Chronic obstructive pulmonary disease, unspecified Essential (primary) hypertension Surgical History Surgical History History of bowel resection 10/17/23 Laparoscopic small bowel resection with anastomosis. Laparoscopic adhesiolysis with release of small bowel obstruction History of coronary artery stent placement stent placed 07/2023 History of breast surgery History of hernia surgery History of hysterectomy History of cholecystectomy History of liver biopsy Status post mastectomy Family History Family History Sibling Family history of malignant neoplasm Family history of diabetes mellitus in first degree relative Family history of lupus erythematosus Family history of malignant neoplasm of brain Family history of malignant neoplasm of breast Mother Family history of chronic obstructive pulmonary disease, Onset Age: 76 Patient's mother is Family history of emphysema Family history of malignant neoplasm of breast Father Family history of malignant neoplasm of esophagus, Onset Age: 54 Patient's father is Other Family history of cardiovascular disease Family history of malignant neoplasm of male breast Family history of obesity Social History Social History Social History: Surrogate medical decision maker: Samanmundo Wall, friend. Code status: Full code. Smoking packs per day: 0.5 Smoking cigarettes per day: 10.0 Years smoked: 50 Smoking pack-years: 25.00 Second hand tobacco smoke exposure: Yes Alcohol intake: former Substance use: current Substance use type: marijuana Other substance usage details: DAILY Last use: 12/13/2024 Do You Feel Safe in your Home?: Yes Lack of Transportation: No Lack of Food: Never True Current Housing: I Have Housing Concerned About Future Housing: No Difficulty Paying Gas/Electric Bills: No Difficulty Paying for Meds: No Currently Unemployed: No Education: High School Diploma/GED Difficulty w/ Childcare or Family Care: No Living arrangements: with family Spiritual care concerns: No Exam Narrative: GENERAL: Ill appearing (assumedly chronic), well-nourished, non-toxic, in no acute distress. HEAD: Normocephalic, atraumatic. NECK: Supple. No adenopathy, no masses. RESPIRATORY: Airway patent, respirations nonlabored. Clear to auscultation bilaterally, no rales, rhonchi, wheezing. CARDIOVASCULAR:Regular rate, + murmur. Peripheral pulses 2+ and equal bilaterally. ABDOMINAL: Soft, nontender, nondistended, no hepatosplenomegaly. Normoactive BS. MUSCULOSKELETAL: Moves all extremities. Strength/ROM intact without gross deformities. SKIN: Warm, dry, normal color. No rashes. NEURO: A&O X3. Speech clear. Cranial nerves II-XII intact. No ataxic movements. PSYCHIATRIC: Appropriate mood and affect. Normal interaction. Course Vital Signs Vital signs: Vital Signs Temperature 37.2 C 02/07/25 16:17 Pulse Rate 56 L 02/07/25 16:17 Respiratory Rate 20 02/07/25 16:17 Blood Pressure 151/67 H 02/07/25 16:17 Pulse Oximetry 97 02/07/25 16:17 Oxygen Delivery Room Air 02/07/25 16:17 Temperature 37.2 C 02/07/25 16:17 Pulse Rate 56 L 02/07/25 16:17 Respiratory Rate 20 02/07/25 16:17 Blood Pressure 151/67 H 02/07/25 16:17 Pulse Oximetry 97 02/07/25 16:17 Oxygen Delivery Room Air 02/07/25 16:17 Medical Decision Making MDM Narrative Medical decision making narrative: Patient is a 69-year-old female who presents to the ER with neck pain, right hand numbness/tingling with decreased strength that has now radiated to her left arm, and green urine. She reports she had a fall [address] scan showed that C5-C7 were fused, but she reports she has never had a fusion. Upon further inquiry, it was discovered patient tore a muscle/tendon in her right bicep approximately 1 and half years ago and has gone through physical therapy. Her right wrist pain and loss of strength has been present since then. Patient also reports she sees Nephrology at [facility] and recently had a kidney biopsy, which indicated she has many cysts and stage 4 CKD. She reports she is not on dialysis. Patient sources a history of cochlear implant, vertigo, Meniere's disease, Parkinson's, tardive dyskinesia, cardiac stents. She denies any recent fevers, loss of continence, acute neuro changes, or chest pain. Labs Ordered: CBC, CMP, PTT, INR, UA Imaging Ordered: None necessary (neck already scanned following initial injury) Medications Ordered: Dilaudid IV Results: All of patient's blood work results are consistent with previous results in this ER. Diagnosis: Chronic neck pain, chronic right arm numbness/pain Risks: HEART score, PECARN score, CURB-65 score Consults: nephrology (outpatient) already established at @ [facility], neurology Patient Education/Shared MDM: Results of lab work shared with patient. She endorses improvement of symptoms following medication administration. Patient strongly advised to follow-up with her workgroup leader and neurologist as soon as possible for further evaluation and treat. She will not be discharged home with any new prescriptions. Strict return precautions provided. Patient verbalized understanding and is in agreement with plan. Vital signs stable at time of discharge. All questions answered. Differential Diagnosis Differential Diagnosis: Urinary tract infection, chronic kidney disease, chronic pain Vital Signs Vital Signs: Vital Signs Temperature 37.2 C 02/07/25 16:17 Pulse Rate 56 L 02/07/25 16:17 Respiratory Rate 20 02/07/25 16:17 Blood Pressure 151/67 H 02/07/25 16:17 Pulse Oximetry 97 02/07/25 16:17 Oxygen Delivery Room Air 02/07/25 16:17 Temperature 37.2 C 02/07/25 16:17 Pulse Rate 56 L 02/07/25 16:17 Respiratory Rate 20 02/07/25 16:17 Blood Pressure 151/67 H 02/07/25 16:17 Pulse Oximetry 97 02/07/25 16:17 Oxygen Delivery Room Air 02/07/25 16:17 Lab Data Lab results reviewed: Yes I reviewed the patient's lab results. 02/07/25 19:06 02/07/25 19:06 Labs: Lab Results 02/07/25 02/07/25 Range/Units 19:06 19:15 WBC 8.9 (4.5-10.0) K/mm3 RBC 3.48 L (4.2-5.4) M/mm3 Hgb 10.5 L (12.0-15.0) g/dL Hct 33.5 L (37.0-47.0) % MCV 96.3 (80-100) fl MCH 30.2 (26-34) pg MCHC 31.3 L (32-36) g/dl RDW 13.7 (11.5-14.5) % Plt Count 176 (150-375) k/mm3 MPV 11.0 H (7.4-10.4) fl Immature Gran % (Auto) 0.4 (0-0.5) % Neut % (Auto) 61.3 (45.5-73.1) % Lymph % (Auto) 27.7 (18.3-44.2) % Cass % (Auto) 8.1 (2.6-8.5) % Eos % (Auto) 2.1 (0-4.4) % Baso % (Auto) 0.4 (0.2-1.2) % Lymph # (Auto) 2.47 (0.9-3.2) K/mm3 Cass # (Auto) 0.7 H (0.1-0.6) K/mm3 Eos # (Auto) 0.2 (0-0.3) K/mm3 Baso # (Auto) 0.0 (0.0-0.1) K/mm3 Abs Immat Gran (auto) 0.04 H (0.00-0.031) K/mm3 Absolute Neuts (auto) 5.5 (1.3-6.7) K/mm3 Absolute Nucleated RBC 0.000 (0.0-0.012) K/mm3 Nucleated RBC % 0.0 (0.0-0.2) % PT 14.0 (11.1-14.7) Seconds INR 1.1 APTT 33.6 (22.3-36.8) Seconds Sodium 138 (137-145) mmol/L Potassium 3.7 (3.4-5.0) mmol/L Chloride 108 H (98-107) mmol/L Carbon Dioxide 27 (22-30) mmol/L Anion Gap 3 L (4-12) mmol/L BUN 37 H D (7-17) mg/dL Creatinine 2.44 H (0.7-1.0) mg/dL Estim Creat Clear Calc 19 ml/min Estimated GFR 20 L (59 - ) Glucose 90 (65-110) mg/dL Calcium 7.8 L (8.4-10.2) mg/dL Total Bilirubin 0.3 (0.2-1.3) mg/dL AST 27 (14-36) U/L ALT 14 (6-35) U/L Alkaline Phosphatase 85 (38-126) U/L Total Protein 6.7 (6.3-8.2) g/dL Albumin 3.4 L (3.5-5.1) g/dL Urine Color Yellow (Yellow) Urine Appearance Clear (Clear) Urine pH 6.5 (5.0-9.0) Ur Specific [place] 1.011 (1.001-1.035) Urine Protein 3+ H (Negative) mg/dL Urine Glucose (UA) Negative (Negative) mg/dL Urine Ketones Negative (Negative) mg/dL Ur Blood (Man) Negative (Negative) Urine Nitrate Negative (Negative) Urine Bilirubin Negative (Negative) Urine Urobilinogen 0.2 (<2.0) mg/dL Leukocyte Esterase Rfl Negative (Negative) JACQUES/UL Urine RBC 0-2 (0-2) /hpf Urine WBC 0-5 (0-3) /hpf Ur Squamous Epith Cells None seen (Few) /hpf Urine Bacteria None seen /hpf Urine Casts 0-2 Urine Opiates Screen Pending Urine Methadone Screen Pending Ur Barbiturates Screen Pending Ur Phencyclidine Scrn Pending Ur Amphetamine Screen Pending U Benzodiazepines Scrn Pending Urine Cocaine Screen Pending U Cannabinoids Screen Pending Discharge Plan Discharge Clinical Impression: Wrist pain, Cervical stenosis of spine, UTI symptoms, Opiate dependence CKD (chronic kidney disease) Qualifiers: Chronic kidney disease stage: unspecified stage Qualified Code(s): N18.9 - Chronic kidney disease, unspecified Labral tear of long head of right biceps tendon Qualifiers: Encounter type: initial encounter Qualified Code(s): S46.111A - Strain of muscle, fascia and tendon of long head of biceps, right arm, initial encounter Patient Disposition: Home Condition: Stable Instructions: Antibiotic Form Additional Instructions: Please return to the ER with any worsening symptoms. Follow-up with primary care provider, Neurology, and Nephrology as soon as possible. Take all medications as prescribed, including regularly scheduled medications. You may take your previously prescribed pain medications as needed. Patient Language: [place] Island[place] Prescriptions: No Action sertraline 100 mg tablet 150 mg PO DAILY acetaminophen [Tylenol Extra Strength] 500 mg tablet 500 mg PO Q6H PRN (Reason: headache) isosorbide mononitrate 60 mg tablet extended release 24 hr 120 mg PO DAILY atorvastatin 80 mg tablet 80 mg PO QHS topiramate 25 mg tablet 50 mg PO Q12H amantadine HCl 100 mg capsule 100 mg PO QHS trazodone 100 mg tablet 100 mg PO QHS PRN (Reason: Sleep) albuterol sulfate 90 mcg/actuation HFA aerosol inhaler 2 puff inhalation Q4H PRN (Reason: Shortness Of Breath) ropinirole 0.25 mg tablet 0.25 mg PO .daily hs Movantik 12.5 mg tablet 12.5 mg PO DAILY@0630 Ingrezza 80 mg capsule 80 mg PO DAILY sodium bicarbonate 650 mg tablet 650 mg PO BID umeclidinium-vilanterol [Anoro Ellipta] 62.5-25 mcg/actuation blister with device 1 inh INHALATION Q24H Vitamin K 100 mcg tablet 100 mcg BYMOUTH DAILY nitroglycerin 0.4 mg 0.4 mg BYMOUTH PRN PRN (Reason: Angina) Rx Instructions: one tablet under tongue every 5 minutes as needed for angina aspirin 81 mg tablet,delayed release (DR/EC) 81 mg PO DAILY cholecalciferol (vitamin D3) 25 mcg (1,000 unit) capsule 25 mcg PO DAILY Qty: 90 1RF valsartan 160 mg tablet See Rx Instructions .ROUTE .COMPLEX Qty: 180 0RF Dose Instruction: TAKE 2 TABLETS BY MOUTH DAILY Rx Instructions: TAKE 2 TABLETS BY MOUTH DAILY ondansetron 4 mg tablet,disintegrating See Rx Instructions .ROUTE .COMPLEX Qty: 60 1RF Dose Instruction: DISSOLVE 1 TABLET BY MOUTH EVERY 8 HOURS NEEDED FOR NAUSEA/VOMITING Rx Instructions: DISSOLVE 1 TABLET BY MOUTH EVERY 8 HOURS NEEDED FOR NAUSEA/VOMITING carvedilol 6.25 mg tablet 6.25 mg PO Q12H Qty: 60 0RF Rx Instructions: must administer with a meal/food amlodipine 10 mg tablet See Rx Instructions .ROUTE .COMPLEX Qty: 90 1RF Dose Instruction: TAKE 1 TABLET BY MOUTH EVERY DAY Rx Instructions: TAKE 1 TABLET BY MOUTH EVERY DAY albuterol sulfate 2.5 mg /3 mL (0.083 %) solution for nebulization 2.5 mg continuous nebulization Q6H Qty: 90 1RF meclizine 25 mg tablet See Rx Instructions .ROUTE .COMPLEX Qty: 60 1RF Dose Instruction: TAKE 1 TABLET BY MOUTH TWICE A DAY NEEDED FOR DIZZINESS Rx Instructions: TAKE 1 TABLET BY MOUTH TWICE A DAY NEEDED FOR DIZZINESS hydrocodone-acetaminophen 10-325 mg tablet 1 tablet PO Q6H PRN (Reason: pain) Qty: 120 0RF Follow-up/Referrals: Saul Marcelino MD [Primary Care Provider, Family Practice] Elijah Catherine MD [Physician, Neurology] Jamie Yun MD [Physician, Neurology] Time of Disposition: 20:33
--- OUTSIDE RECORDS SUMMARY | 2025-02-07 18:44 | XMS_ITS | Encounter Summary ---
Author Organization [facility] Address [facility] [facility] [place] [address] Care Team Providers Care Identification And Records Commander Name Role Phone Saul Marcelino MD Primary Care Provider [phone] Francia Hammonds MD Unavailable [phone] Andre Mccann MD Unavailable [phone] Ana Andersen MD Unavailable [phone] Vincent Sandra MD Unavailable [phone] Joan Wood MD Unavailable Lyudmila Bangura MD Unavailable Gloria Alatorre MD Unavailable Mony Zaldivar PharmD Unavailable Unavaila hSirley Barillas PharmD Unavailable Unavailable Anastacia Garces RN Unavailable Unavailable Tabatha Solorzano Unavailable Unavailable Ness Ortiz Unavailable Sarah Grisel Singh [address] MAGISTRATE-WEIGHT CLERK Unavailable [phone] Nannette Joshi RN Unavailable Unavailable Sylwia Lovelace MERCHANDISING CONSULTANT Unavailable Unavailab Saul Kimball MD Unavailable Reason for Visit * Reason Onset Date Comments MEDICATION REFILL 10/04/2024 Encounter Details Date Type Department Care Team (Late st Contact Info) Description 10/04/2024 Refill [facility] - Pulmonology [address] [facility], [place] [address] Kunal Lennon MD [address] [place] [address] MEDICATION REFILL Social History Tobacco Use Types [...] on file Legal Sex 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 ADVERTISING VICE PRESIDENT Gender Identity Not on file Sexual Orientation [...] st Contact Info) Description 03/16/2025 2:00 PM ADVERTISING VICE PRESIDENT Office Visit [facility] - Neurology [address] [facility], [place] [phone] Gary Virgen APRN-POP [address] [place] [phone] 03/21/2025 11:00 AM ADVERTISING VICE PRESIDENT Office Visit [facility] - Sleep Services [address] [place] [address] Maura Simmons APNP-WEIGHT CLERK [address] [place] [phone] 05/25/2025 11:00 AM ADVERTISING VICE PRESIDENT Office Visit [facility] - Nephrology [address] [facility] [place] [address] Francia Hammonds MD [address] [facility] [address] [place] [address] 06/07/2025 11:00 AM ADVERTISING VICE PRESIDENT Office Visit [facility] - Cardiology [address], [place] [facility] [address] [place] [phone] Andrés Kaye MD [address] [facility] [address] [place] [address] 09/13/2025 1:45 PM CDT Appointment [facility] [address] [facility], 2nd [place] [address] 09/13/2025 2:00 PM CDT Office Visit [facility] - Hematology/Oncology [address] [place] [phone] Aubree Thomas MD [address] [place] [phone] documented as of this encounter Goals Goal [...] asthma documented in this encounter Care Teams Identification And Records Commander Relationship Specialty Start Date End Date Saul Marcelino MD [address] [place] [phone] PCP - General Family Medicine 04/20/24 Francia Hammonds MD [address] [place] [address] [address] [place] [address] Dry Chain Puller Nephrology 11/24/24 Andre Mccann MD [address] [place] [phone] Hematology and Oncology 11/24/24 Ana Andersen MD [address] [place] [address] Hematology and Oncology 11/24/24 Vincent Sandra MD [address] [place] [address] Lumber Stacker Operator/Oncologis t Hematology and Oncology 11/24/24 Joan Wood MD [address] [place] [address] Lumber Stacker Operator/Oncologis t Hematology and Oncology 11/24/24 Lyudmila Bangura MD [address] [place] [address] Physician Hematology and Oncology 11/24/24 Gloria Alatorre MD [address] [place] [phone] Physician Hematology and Oncology 11/24/24 Mony Zaldivar, PharmD 11/24/24 Shirley Barahona, GodwinD Pharmacist 11/24/24 Anastacia Garces RN Registered Nurse 11/24/24 Tabatha Solorzano 11/24/24 Ness Ortiz 11/24/24 Grisel Dobbins, INDRA-WEIGHT CLERK [address] [place] [address] Nurse Practitioner Nurse Practitioner 11/24/24 Nannette Joshi, RN Registered Nurse 11/24/24 Sylwia Lovelace, [facility] [address] [place] [address] Celery Wrapper 11/24/24 Saul Marcelino MD [address] [place] [address] Family Medicine 01/05/25 documented as of this encounter
--- OUTSIDE RECORDS SUMMARY | 2025-02-07 18:44 | XMS_ITS ---
Author Organization [facility] Building A Address [address] [place] [address] Care Team Providers Care Artisan Plasterer Name Role Phone Saul Marcelino MD Primary Care Provider [phone] Active Problems Problem Noted Date Diagnosed Date Renal disorder 12/08/2023 Overview (12/08/2023): Kidney failure Generalized anxiety disorder with panic attacks 05/14/2023 Leg cramps 05/14/2023 BERTA (obstructive sleep apnea) 05/14/2023 PND (paroxysmal nocturnal dyspnea) 05/14/2023 Restless legs syndrome (RLS) 05/14/2023 Stage 3b chronic kidney disease 05/14/2023 Cystic disease of liver 09/18/2022 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 [place] heart with stable angina pectoris 09/17/2022 Nontoxic [...] 03/15/2020 Assessment & Plan (04/26/2020 3:09 PM LOCATOR SPECIALIST): Controlled with medication including Lasix CKD - continue medication per PCP Assessment & Plan (03/15/2020 3:58 PM LOCATOR SPECIALIST): Controlled with medication including Lasix CKD - continue medication per PCP Mixed hyperlipidemia 03/15/2020 Hypercalcemia 03/15/2020 Assessment & Plan (04/26/2020 3:09 PM LOCATOR SPECIALIST): Detected on labs on 03/09/20 Calcium of [...] functions Assessment & Plan (03/15/2020 3:57 PM LOCATOR SPECIALIST): Detected on recent labs on 03/09/20 Calcium [...]
--- OUTSIDE RECORDS SUMMARY | 2025-02-07 18:44 | XMS_ITS | Encounter Summary ---
Author Organization [facility] Address [facility]3 [facility] [place] [address] Care Team Providers Care Office Aide Name Role Phone Saul Marcelino MD Primary Care Provider [phone] None, Physician Primary Care Provider Unavailabl e Saul Marcelino MD Primary Care Provider [phone] Francia Hammonds MD Unavailable [phone] Andre Mccann MD Unavailable [phone] Ana Andersen MD Unavailable [phone] Vincent Sandra MD Unavailable Joan Wood MD Unavailable Lyudmila Bangura MD Unavailable Gloria Alatorre MD Unavailable Mony Zaldivar PharmD Unavailable Unavaila Shirley Barillas PharmD Unavailable Unavailable Anastacia Garces RN Unavailable Unavailable Tabahta Solorzano Unavailable Unavailable Ness Ortiz Unavailable Sarah Grisel Singh ZIPPER IRONER-WORD PROCESSOR OPERATOR Unavailable [phone] Nannette Joshi RN Unavailable Unavailable Sylwia Lovelace LCSW Unavailable Unavailab Saul Kimball MD Unavailable Reason for Visit * Reason Onset Date Comments Update 08/17/2023 Encounter Details Date Type Department Care Team (Late st Contact Info) Description 08/17/2023 Telephone [facility] - Centralized Scheduling [address] [place] [address] Ness Burton, AuD [address] [place] [address] Update Social History Tobacco Use Types Packs/Day [...] on file Legal Sex 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 CLINICAL CONSULTANT Gender Identity Not on file Sexual [...] be here tomorrow at 3:30pm. Her phone: [phone] documented in this encounter Plan of Treatment Upcoming Encounters Date Type Department Care Team (Late st Contact Info) Description 03/16/2025 2:00 PM CLINICAL CONSULTANT Office Visit [facility] - Neurology [address] [place] [address], [place] [address] Gary Virgen APRN-WORD PROCESSOR OPERATOR [facility]5 [facility] 1L [place] [address] 03/21/2025 11:00 AM CLINICAL CONSULTANT Office Visit [facility] - Sleep Services [address] [place] [address] [address] [place] [address] Maura Simmons APNP-WORD PROCESSOR OPERATOR [address] [place] [address] [address] [place] [address] 05/25/2025 11:00 AM CLINICAL CONSULTANT Office Visit [facility] - Nephrology [address] [place] [address], [place] [address] Francia Hammonds MD [facility]5 [facility] 3L [place] [address] 06/07/2025 11:00 AM CLINICAL CONSULTANT Office Visit [facility] - Cardiology [address] [place] [address], [facility] [address] [place] [address] Andrés Kaye MD [address] [place] [address] SUITE [facility]0 [place] [address] 09/13/2025 1:45 PM CDT Appointment [facility] [address] CANCER CARE DRAWSTATION [address] [facility], 2nd [place] [address] 09/13/2025 2:00 PM CDT Office Visit [facility] - Hematology/Oncology [address] [place] [address] Aubree Thomas MD [address] [place] [address] documented as of this encounter [...] on filedocumented in this encounter Care Teams Office Aide Relationship Specialty Start Date End Date Saul Marcelino MD [address] [place] [address] PCP - General Family Medicine 09/17/22 02/09/24 None, Physician [address] [place] [address] PCP - General 02/10/24 04/19/24 Saul Marcelino MD [address] [place] [address] PCP - General Family Medicine 04/20/24 Francia Hammonds MD [address] [place] [address] 3 [place] [address] Sample Color Maker Nephrology 11/24/24 Andre Mccann MD [address] [place] [address] Hematology and Oncology 11/24/24 [place] [address] [place] [address] Hematology and Oncology 11/24/24 Vincent Snadra MD [address] [place] [address] Electronics Engineering Technologist/Oncologis t Hematology and Oncology 11/24/24 Joan Wood MD [address] [place] [address] Electronics Engineering Technologist/Oncologis t Hematology and Oncology 11/24/24 Lyudmila Bangura MD [address] [address] Physician Hematology and Oncology 11/24/24 Gloria Alatorre MD [address] [place] [address] Physician Hematology and Oncology 11/24/24 Mony Zaldivar, PharmD 11/24/24 Shirley Barahona, PharmD Pharmacist 11/24/24 Anastacia Garces RN Registered Nurse 11/24/24 Tabatha Solorzano 11/24/24 Ness Ortiz 11/24/24 Grisel Dobbins, ZIPPER IRONER-WORD PROCESSOR OPERATOR [address] [place] [address] Nurse Practitioner Nurse Practitioner 11/24/24 Nannette Joshi, RN Registered Nurse 11/24/24 Sylwia Lovelace, OPERATIONS TECH [address] [place] [address] Intake Nurse 11/24/24 Saul Marcelino MD [address] [place] [address] Family Medicine 01/05/25 documented as of this encounter
--- OUTSIDE RECORDS SUMMARY | 2025-02-07 18:44 | XMS_ITS | Encounter Summary ---
Author Organization [facility] Address [facility]3 [facility] [place] [address] Care Team Providers Care President + Publisher Name Role Phone Timmy Baldwin MD Primary Care Provider + [phone] Dontae Min DO Primary Care Provider [phone] Dontae Min DO Primary Care Provider [phone] Saul Marcelino MD Primary Care Provider + [phone] None, Physician Primary Care Provider Unavailabl e Saul Marcelino MD Primary Care Provider [phone] Francia Hammonds MD Unavailable [phone] Andre Mccann MD Unavailable [phone] Ana Andersen MD Unavailable [phone] Vincent Sandra MD Unavailable Joan Wood MD Unavailable Lyudmila Bangura MD Unavailable Gloria Alatorre MD Unavailable Mony Zladivar PharmD Unavailable Unavaila Shirley Barillas PharmD Unavailable Unavailable Anastacia Garces RN Unavailable Unavailable Tabatha Solorzano Unavailable Unavailable Ness Ortiz Unavailable Sarah Grisel Singh LADLE LINER HELPER-COPPER FLOTATION OPERATOR Unavailable [phone] Nannette Joshi RN Unavailable Unavailable Sylwia LovelaceW Unavailable Unavailab Saul Kimball MD Unavailable Encounter Details Date Type Department Care Team (Latest Contact Info) Description 05/14/2022 Ambulatory Consult [facility] [address]L [address] [facility], [place] [address] Shelley Ortega, KIMO Cystadenoma, hepatobiliary ; Cystic [...] on file Legal Sex 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 SHORT RANGE AIR DEFENSE ARTILLERY Gender Identity Not on file Sexual Orientation Not on file COVID-19 Exposure Response Date Recorded In the last 10 days, have yo u been in contact with someone who was confirmed or suspected to have Coronavirus/COVID-19? No / Unsure 04/24/2022 1:12 PM SHORT RANGE AIR DEFENSE ARTILLERY documented as of this encounter Plan of Treatment Upcoming Encounters Date Type Department Care Team (Late st Contact Info) Description 03/16/2025 2:00 PM SHORT RANGE AIR DEFENSE ARTILLERY Office Visit [facility] - Neurology [address] [facility], [place] [address] Gary Virgen APRN-COPPER FLOTATION OPERATOR [address] [place] [address] 03/21/2025 11:00 AM SHORT RANGE AIR DEFENSE ARTILLERY Office Visit [facility] - Sleep Services [address] [facility] [address] [place] [address] Maura Simmons APNP-COPPER FLOTATION OPERATOR 1034 [facility] [address] [place] [address] 05/25/2025 11:00 AM SHORT RANGE AIR DEFENSE ARTILLERY Office Visit [facility] Group - Nephrology [address] [facility], [place] [address] Francia Hammonds MD [address] [facility] 3L Div [place] [address] 06/07/2025 11:00 AM SHORT RANGE AIR DEFENSE ARTILLERY Office Visit [facility] - Cardiology [address] [facility], [address] [place] [address] Andrés Kaye MD 1034 [facility] SUITE [facility]0 [place] [address] 09/13/2025 1:45 PM CDT Appointment [facility] CANCER CARE DRAWSTATION [address] [facility] 2nd [place] [address] 09/13/2025 2:00 PM CDT Office Visit [facility] Group - Hematology/Oncology [address] [place] [address] Aubree Thomas MD [address] [place] [address] documented as of this encounter Goals Goal [...] (HCC) documented in this encounter Care Teams President + Publisher Relationship Specialty [place] [address] [facility] [address] [place] [address] PCP - General 05/12/22 06/03/22 Dontae Min DO [address] [place] [address] PCP - General 06/04/22 06/09/22 Dontae Min DO [address] [place] [address] PCP - General 06/10/22 09/16/22 Saul Marcelino MD [address] [place] [address] PCP - General Family Medicine 09/17/22 02/09/24 None, Physician [address] [place] [address] PCP - General 02/10/24 04/19/24 Saul Marcelino MD [address] [place] [address] PCP - General Family Medicine 04/20/24 Francia Hammonds MD [address] [facility] 3[facility] [place] [address] Library Services Coordinator Nephrology 11/24/24 Andre Mccann MD [address] [place] [address] Hematology and Oncology 11/24/24 Ana Andersen MD [address] [place] [address] Hematology and Oncology 11/24/24 Vincent Sandra MD [address] [place] [address] Director Of Strategic Marketing/Oncologis t Hematology and Oncology 11/24/24 Joan Wood MD [address] [place] [address] Director Of Strategic Marketing/Oncologis t Hematology and Oncology 11/24/24 Lyudmila Bangura MD [address] [address] Physician Hematology and Oncology 11/24/24 Gloria Alatorre MD [address] [place] [address] Physician Hematology and Oncology 11/24/24 Mony Zaldivar, PharmD 11/24/24 Shirley Barahona, PharmD Pharmacist 11/24/24 Anastacia Garces RN Registered Nurse 11/24/24 Tabatha Solorzano 11/24/24 Ness Ortiz 11/24/24 Grisel Dobbins APRN-COPPER FLOTATION OPERATOR [address] [place] [address] Nurse Practitioner Nurse Practitioner 11/24/24 Nannette Joshi, RN Registered Nurse 11/24/24 Sylwia Lovelace LCSW [address] [place] [address] Leaf Size Picker 11/24/24 Saul Marcelino MD [address] [place] [address] Family Medicine 01/05/25 documented as of this encounter
--- OUTSIDE RECORDS SUMMARY | 2025-02-07 18:44 | XMS_ITS | Encounter Summary ---
Author Organization [facility] Address [facility]3 [facility] [place] [address] Care Team Providers Care Broker Name Role Phone Saul Marcelino MD Primary Care Provider [phone] None, Physician Primary Care Provider Unavailabl e Saul Marcelino MD Primary Care Provider [phone] Francia Hammonds MD Unavailable [phone] Andre Mccann MD Unavailable [phone] Ana Andersen MD Unavailable [phone] Vincent Sandra MD Unavailable [phone] Joan Wood MD Unavailable Lyudmila Bangura MD Unavailable Gloria Alatorre MD Unavailable Mony Zaldivar PharmD Unavailable Unavaila Shirley Barillas PharmD Unavailable Unavailable Anastacia Garces RN Unavailable Unavailable Tabatha Solorzano Unavailable Unavailable Ness Ortiz Unavailable Sarah Grisel Singh MOTOR EQUIPMENT CAPTAIN-SOFTWARE EDUCATOR Unavailable [phone] Nannette Joshi RN Unavailable Unavailable Sylwia LovelaceW Unavailable Unavailab Saul Kimball MD Unavailable Encounter Details Date Type Department Care Team (Late st Contact Info) Description 11/06/2022 Telephone [facility] - Neurology [address] [facility], [place] [address] Taylor Perry MD Social History Tobacco Use [...] on file Legal Sex 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 MEDICAL OFFICE REP Gender Identity Not on file Sexual Orientation [...] st Contact Info) Description 03/16/2025 2:00 PM MEDICAL OFFICE REP Office Visit [facility] - Neurology [address] [facility], [place] [address] Gary Virgen APRN-SOFTWARE EDUCATOR 12[address] [facility] 1L [place] [address] 03/21/2025 11:00 AM MEDICAL OFFICE REP [facility] [address] [facility] [address] [place] [address] Maura Simmons APNP-SOFTWARE EDUCATOR [address] [facility] [address] [place] [address] 05/25/2025 11:00 AM MEDICAL OFFICE REP Office Visit [facility] - Nephrology [address] [facility], [place] [address] Francia Hammonds MD [address] [facility] 3L [place] [address] 06/07/2025 11:00 AM MEDICAL OFFICE REP Office Visit [facility] - Cardiology [address] [facility], [address] [place] [address] Andrés Kaye MD [address] [facility] [address] [place] [address] 09/13/2025 1:45 PM CDT Appointment [facility] CANCER CARE DRAWSTATION 365[address] [facility], 2nd [place] [address] 09/13/2025 2:00 PM CDT Office Visit [facility] - Hematology/Oncology [address] [place] [address] Aubree Thomas MD [address] [place] [address] documented as of this encounter [...] on filedocumented in this encounter Care Teams Broker Relationship Specialty Start Date End Date Saul Marcelino MD [address] [place] [address] PCP - General Family Medicine 09/17/22 02/09/24 None, Physician [address]12 [place] [address] PCP - General 02/10/24 04/19/24 Saul Marcelino MD [address] [place] [address] PCP - General Family Medicine 04/20/24 Francia Hammonds MD [address] [place] [address] 3 [place] [address] Inside Sales Assistant Nephrology 11/24/24 [place] [address] [place] [phone] Hematology and Oncology 11/24/24 Ana Andersen MD [address] [place] [address] Hematology and Oncology 11/24/24 Vincent Sandra MD [address] [place] [address] Authorization Nurse/Oncologis t Hematology and Oncology 11/24/24 Joan Wood MD [address] [place] [address] Authorization Nurse/Oncologis t Hematology and Oncology 11/24/24 Lyudmila Bangura MD [address] [address] Physician Hematology and Oncology 11/24/24 [place] [address] [place] [phone] Physician Hematology and Oncology 11/24/24 Mony Zaldivar, PharmD 11/24/24 Shirley Barahona, PharmD Pharmacist 11/24/24 Anastacia Garces RN Registered Nurse 11/24/24 Tabatha Solorzano 11/24/24 Ness Ortiz 11/24/24 Grisel Dobbins, MOTOR EQUIPMENT CAPTAIN-SOFTWARE EDUCATOR [address] [place] [address] Nurse Practitioner Nurse Practitioner 11/24/24 Nannette Joshi, RN Registered Nurse 11/24/24 Sylwia Lovelace LCSW [address] [place] [address] Speeder Worker 11/24/24 Saul Marcelino MD [address] [place] [address] Family Medicine 01/05/25 documented as of this encounter
--- OUTSIDE RECORDS SUMMARY | 2025-02-07 18:44 | XMS_ITS | Encounter Summary ---
Author Organization [facility] Address [facility]3 [facility] [place] [address] Care Team Providers Care Gate Mortiser Operator Name Role Phone Saul Marcelino MD Primary Care Provider [phone] None, Physician Primary Care Provider Unavailabl e Saul Marcelino MD Primary Care Provider [phone] Francia Hammonds MD Unavailable [phone] Andre Mccann MD Unavailable [phone] Ana Andersen MD Unavailable [phone] Vincent Sandra MD Unavailable [phone] Joan Wood MD Unavailable Lyudmila Bangura MD Unavailable Gloria Alatorre MD Unavailable Mony Zaldivar PharmD Unavailable Unavaila Shirley Barillas PharmD Unavailable Unavailable Anastacia Garces RN Unavailable Unavailable Tabatha Solorzano Unavailable Unavailable Ness Ortiz Unavailable Sarah Grisel Singh STEAM TABLE WORKER-TEMP RECRUITER Unavailable [phone] Nannette Joshi RN Unavailable Unavailable Sylwia Lovelace LCSW Unavailable Unavailab Saul Kimball MD Unavailable Reason for Visit * Reason Onset Date Comments Hospital Follow-up 11/25/2023 Encounter Details Date Type Department Care Team (Late st Contact Info) Description 11/25/2023 Telephone [facility] - Cardiology [address] [facility], [facility] [address] [place] [address] Andrés Kaye MD [address] [facility] [address] [place] [address] Hospital Follow-up Social History Tobacco Use Types [...] on file Legal Sex 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 UTILITY AIDE Gender Identity Not on file Sexual Orientation [...] and was advised to f.u with her coating machine operator prior to being discharged Patient Call Back number: [phone] documented in this encounter Plan of Treatment Upcoming Encounters Date Type Department Care Team (Late st Contact Info) Description 03/16/2025 2:00 PM UTILITY AIDE Office Visit [facility] - Neurology [facility]5 [facility], [place] [address] Gary Virgen APRN-TEMP RECRUITER [address] [facility] 1L [place] [address] 03/21/2025 11:00 AM UTILITY AIDE Office Visit [facility] - Sleep Services [address] [facility] [address] [place] [address] Maura Simmons APNP-TEMP RECRUITER [address] [facility] [address] [place] [address] 05/25/2025 11:00 AM UTILITY AIDE Office Visit [facility] - Nephrology 12[address] [facility], [place] [address] Francia Hammonds MD [address] [facility] 3L [place] [address] 06/07/2025 11:00 AM UTILITY AIDE Office Visit [facility] Group - Cardiology [address] [facility], [address] [place] [address] Andrés Kaye MD [address] [facility] [address] [place] [address] 09/13/2025 1:45 PM CDT Appointment [facility] CANCER CARE DRAWSTATION 3655 [facility], 2nd [place] [address] 09/13/2025 2:00 PM CDT Office Visit [facility] Group - Hematology/Oncology [address] [place] [address] Aubree Thomas MD [address] [place] [address] documented as of this encounter Goals Goal [...] on filedocumented in this encounter Care Teams Gate Mortiser Operator Relationship Specialty Start Date End Date Saul Marcelino MD [address] [place] [address] PCP - General Family Medicine 09/17/22 02/09/24 None, Physician [address] [place] [address] PCP - General 02/10/24 04/19/24 Saul Marcelino MD [address] [place] [address] PCP - General Family Medicine 04/20/24 Francia Hammonds MD [address] [facility] 3L [place] [address] Senior Financial Consultant Nephrology 11/24/24 Andre Mccann MD [address] [place] [address] Hematology and Oncology 11/24/24 Ana Andersen MD [address] [place] [address] Hematology and Oncology 11/24/24 Vincent Sandra MD [address] [place] [address] Manufacturing Process Engineer/Oncologis t Hematology and Oncology 11/24/24 Joan Wood MD [address] [place] [address] Manufacturing Process Engineer/Oncologis t Hematology and Oncology 11/24/24 Lyudmila Bangura MD [address] [place] [address] Physician Hematology and Oncology 11/24/24 Gloria Alatorre MD [address] [place] [address] Physician Hematology and Oncology 11/24/24 Mony Zaldivar, PharmD 11/24/24 Shirley Barahona, PharmD Pharmacist 11/24/24 Anastacia Garces, RN Registered Nurse 11/24/24 Tabatha Solorzano 11/24/24 Ness Ortiz 11/24/24 Grisel Dobbins APRN-POP [address] [place] [address] Nurse Practitioner Nurse Practitioner 11/24/24 Nannette Joshi, KIMO Registered Nurse 11/24/24 Sylwia Lovelace LCSW [address] [place] [address] Mysql Database Developer 11/24/24 Saul Marcelino MD [address] [place] [address] Family Medicine 01/05/25 documented as of this encounter
--- OUTSIDE RECORDS SUMMARY | 2025-02-07 18:44 | XMS_ITS | Encounter Summary ---
Author Organization [facility] Address [facility]3 [facility] [place] [address] Care Team Providers Care Motion Picture Printer Name Role Phone Saul Marcelino MD Primary Care Provider [phone] Francia Hammonds MD Unavailable [phone] Andre Mccann MD Unavailable [phone] Ana Andersen MD Unavailable [phone] Vincent Sandra MD Unavailable [phone] Joan Wood MD Unavailable Lyudmila Bangura MD Unavailable Gloria Alatorre MD Unavailable Mony Zaldivar PharmD Unavailable Unavaila Shirley Barillas PharmD Unavailable Unavailable Anastacia Garces RN Unavailable Unavailable Tabatha Solorzano Unavailable Unavailable Ness Ortiz Unavailable Sarah Grisel Singh TAILERCPA-INSURANCE PROFESSIONAL Unavailable [phone] Nannette Joshi RN Unavailable Unavailable Sywlia Lovelace HOSPITALITY SPECIALIST Unavailable Unavailab Saul Kimball MD Unavailable Reason for Visit * Reason Onset Date Comments MEDICATION REFILL 10/04/2024 Encounter Details Date Type Department Care Team (Late st Contact Info) Description 10/04/2024 Refill [facility] - Pulmonology 1225 [facility], [place] [address] Maico Murphy MD [address] [place] [address] MEDICATION REFILL Social History Tobacco Use Types [...] on file Legal Sex 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 RECOVERY ROOM NURSE Gender Identity Not on file Sexual Orientation [...] st Contact Info) Description 03/16/2025 2:00 PM RECOVERY ROOM NURSE Office Visit [facility] - Neurology [address] [place] [address], [place] [address] Gary Virgen TAILERCPA-INSURANCE PROFESSIONAL 1225 [facility] 1L [place] [address] 03/21/2025 11:00 AM RECOVERY ROOM NURSE Office Visit [facility] - Sleep Services 1034 [facility] 550 [place] [address] Maura Simmons, APNP-INSURANCE PROFESSIONAL 1034 [facility] 550 [place] [address] 05/25/2025 11:00 AM RECOVERY ROOM NURSE Office Visit [facility] - Nephrology [facility]5 [facility], [place] [address] Francia Hammonds MD 1225 [facility] 3L [place] [address] 06/07/2025 11:00 AM RECOVERY ROOM NURSE Office Visit [facility] - Cardiology 1034 [facility] 1120 [place] [address] Andrés Kaye MD 1034 [facility] [address] [place] [address] 09/13/2025 1:45 PM CDT Appointment [facility]ER CARE DRAWSTATION [address] [place] [address], 2nd [place] [address] 09/13/2025 2:00 PM CDT Office Visit [facility] - Hematology/Oncology [address] [place] [address] Aubree Thomas MD 3659 [place] [address] documented as of this encounter [...] on filedocumented in this encounter Care Teams Motion Picture Printer Relationship Specialty Start Date End Date Saul Marcelino MD [address] [place] [address] PCP - General Family Medicine 04/20/24 Francia Hammonds MD [address] [place] [address] 3 [place] [address] Gauge Maker Nephrology 11/24/24 Andre Mccann MD [address] [place] [phone] Hematology and Oncology 11/24/24 [place] [address] [place] [address] Hematology and Oncology 11/24/24 Vincent Sandra MD 3655 [place] [address] C.O.D. Audit Clerk/Oncologis t Hematology and Oncology 11/24/24 [place] [address] [place] [address] C.O.D. Audit Clerk/Oncologis t Hematology and Oncology 11/24/24 [place] [address] [place] [address] Physician Hematology and Oncology 11/24/24 Gloria Alatorre MD [address] [place] [phone] Physician Hematology and Oncology 11/24/24 Mony Zaldviar, PharmD 11/24/24 Shirley Barahona, PharmD Pharmacist 11/24/24 Anastacia Garces RN Registered Nurse 11/24/24 Tabatha Solorzano 11/24/24 Ness Ortiz 11/24/24 Grisel Dobbins, TAILERCPA-INSURANCE PROFESSIONAL [address] [place] [address] Nurse Practitioner Nurse Practitioner 11/24/24 Nannette Joshi, RN Registered Nurse 11/24/24 Sylwia Lovelace, HOSPITALITY SPECIALIST 3655 [place] [address] [place] 11/24/24 Saul Marcelino MD [address] [place] [address] Family Medicine 01/05/25 documented as of this encounter
--- OUTSIDE RECORDS SUMMARY | 2025-02-07 18:44 | XMS_ITS | Encounter Summary ---
Author Organization [facility] Address [facility]3 [facility] [place] [address] Care Team Providers Care Classroom Technology Coach Name Role Phone Saul Marcelino MD Primary Care Provider [phone] Francia Hammonds MD Unavailable [phone] Andre Mccann MD Unavailable [phone] Ana Andersen MD Unavailable [phone] Vincent Sandra MD Unavailable [phone] Joan Wood MD Unavailable Lyudmila Bangura MD Unavailable Gloria Alatorre MD Unavailable Mony Zaldivar PharmD Unavailable Unavaila Shirley Barillas PharmD Unavailable Unavailable Anastacia Garces RN Unavailable Unavailable Tabatha Solorzano Unavailable Unavailable Ness Ortiz Unavailable Sarah Grisel Singh SEED SERVICE ADVISOR-LIFE INSURANCE ACTUARY Unavailable [phone] Nannette Joshi RN Unavailable Unavailable Sylwia Lovelace WIRE MESH FILTER FABRICATOR Unavailable Unavailab Saul Kimball MD Unavailable Reason for Visit * Reason Onset Date Comments MEDICATION REFILL 10/04/2024 Encounter Details Date Type Department Care Team (Late st Contact Info) Description 10/04/2024 Refill [facility] - Pulmonology 1225 [facility], [place] [address] Beau Myrick MD 1225 [address] [facility] [address] [facility] [address] MEDICATION REFILL Social History Tobacco Use Types [...] on file Legal Sex 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 POLICE LIEUTENANT PRECINCT Gender Identity Not on file Sexual Orientation [...] st Contact Info) Description 03/16/2025 2:00 PM POLICE LIEUTENANT PRECINCT Office Visit [facility] - Neurology [address] [place] [address], [place] [address] Gary Virgen APRN-LIFE INSURANCE ACTUARY 1225 [facility] 1L [place] [address] 03/21/2025 11:00 AM POLICE LIEUTENANT PRECINCT Office Visit [facility] - Sleep Services [address] [facility] 550 [place] [address] Maura Simmons APNP-LIFE INSURANCE ACTUARY [address] [facility] 550 [place] [address] 05/25/2025 11:00 AM POLICE LIEUTENANT PRECINCT Office Visit [facility] - Nephrology [address] [place] [address], [place] [address] Francia Hammonds MD 1225 [facility] 3L [place] [address] 06/07/2025 11:00 AM POLICE LIEUTENANT PRECINCT Office Visit [facility] - Cardiology 1034 [address] [facility] [place] [address] [place] [address] Andrés Kaye MD 1034 S [facility] SUITE [facility]0 [place] [address] 09/13/2025 1:45 PM CDT Appointment [facility] DRAWSTATION [address], 2nd [place] [address] 09/13/2025 2:00 PM CDT Office Visit [facility] - Hematology/Oncology 365[address] [place] [address] Aubree Thomas MD 3655 [place] [address] documented as of this encounter [...] asthma documented in this encounter Care Teams Classroom Technology Coach Relationship Specialty Start Date End Date Saul Marcelino MD [address] [place] [address] PCP - General Family Medicine 04/20/24 Francia Hammonds MD 1225 [facility] 3L [place] [address] Flight Engineer Helicopter Nephrology 11/24/24 Andre Mccann MD [address] [place] [phone] Hematology and Oncology 11/24/24 Ana Andersen MD [address] [place] [address] Hematology and Oncology 11/24/24 Vincent Sandra MD [address] [place] [address] Slurry Man/Oncologis t Hematology and Oncology 11/24/24 Joan Wood MD [address] [place] [address] Slurry Man/Oncologis t Hematology and Oncology 11/24/24 Lyudmila Bangura MD [address] [place] [address] Physician Hematology and Oncology 11/24/24 Gloria Alatorre MD [address] [place] [phone] Physician Hematology and Oncology 11/24/24 Mony Zaldivar, PharmD 11/24/24 Shirley Barahona, PharmD Pharmacist 11/24/24 Anastacia Garces RN Registered Nurse 11/24/24 Tabatha Solorzano 11/24/24 Ness Ortiz 11/24/24 Grisel Dobbins, INDRA-LIFE INSURANCE ACTUARY [facility] [place] [address] Nurse Practitioner Nurse Practitioner 11/24/24 Nannette Joshi, RN Registered Nurse 11/24/24 Sylwia Lovelace LCSW 3655 [facility] [address] Director Web 11/24/24 Saul Marcelino MD [address] [place] [address] Family Medicine 01/05/25 documented as of this encounter
--- OUTSIDE RECORDS SUMMARY | 2025-02-07 18:44 | XMS_ITS | Clinical Summary ---
Author Organization [facility] Medical Office Building A Address [address] [place] [address] Care Team Providers Care Acid Maker Name Role Phone Saul Marcelino MD Primary Care Provider [phone] Allergies Active Allergy Reactions Criticality Noted Date [...] artery disease of n ative artery of [place] heart with stable angina pectoris 09/17/2022 Nontoxic [...] 03/15/2020 Assessment & Plan (04/26/2020 3:09 PM SUPERVISOR DELIVERY DEPARTMENT): Controlled with medication including Lasix CKD - continue medication per PCP Assessment & Plan (03/15/2020 3:58 PM SUPERVISOR DELIVERY DEPARTMENT): Controlled with medication including Lasix CKD - continue medication per PCP Mixed hyperlipidemia 03/15/2020 Hypercalcemia 03/15/2020 Assessment & Plan (04/26/2020 3:09 PM SUPERVISOR DELIVERY DEPARTMENT): Detected on labs on 03/09/20 Calcium of [...] functions Assessment & Plan (03/15/2020 3:57 PM SUPERVISOR DELIVERY DEPARTMENT): Detected on recent labs on 03/09/20 Calcium [...] Type Department Care Team Description 12/26/2024 Telephone [facility] Orthopedics and Sports Medicine [address] [place] [address] Yelitza Watters MA 12/16/2024 Orders Only [facility] Cardiology [address] [place] [address] Maury Peña MD from Last [...] on file Legal Sex Female 12:19 AM SUPERVISOR DELIVERY DEPARTMENT Gender Identity Not on file Sexual Orientation [...] PM CDT MR Weber Mamm R Acc#: [id number] DATE OF EXAM: Oct 05 2012 Performed [...] - 08/07/2016 MR Weber Mamm R Acc#: [id number] DATE OF EXAM: Oct 05 2012 Performed [...] Most Recently Relevant to Health Maintenance Insurance [employer] MEDICARE MEDICARE [facility] Advance Directives For more information, please contact: [phone] * Full Code (Latest Code Status on File) Date Activated Date Inactivated Comments 11/28/2020 7:15 PM 11/29/2020 7:45 PM Care Teams Acid Maker Relationship Specialty Start Date End Date Saul Marcelino MD [address] [place] [address] PCP - General Family Practice 08/10/24
--- OUTSIDE RECORDS SUMMARY | 2025-02-07 18:44 | XMS_ITS | Encounter Summary ---
Author Organization [facility] Address [facility]3 [facility] [place] [address] Care Team Providers Care Group Insurance Special Agent Name Role Phone Saul Marcelino MD Primary Care Provider [phone] Francia Hammonds MD Unavailable [phone] Andre Mccann MD Unavailable [phone] Ana Andersen MD Unavailable [phone] Vincent Sandra MD Unavailable Joan Wood MD Unavailable Lyudmila Bangura MD Unavailable Gloria Alatorre MD Unavailable Mony Zaldivar PharmD Unavailable Unavaila Shirley Barillas PharmD Unavailable Unavailable Anastacia Garces RN Unavailable Unavailable Tabatha Solorzano Unavailable Unavailable Ness Ortiz Unavailable Sarah Grisel Singh SUPERVISOR [employer]-SERVICE STATION CASHIER Unavailable [phone] Nannette Joshi RN Unavailable Unavailable Sylwia Lovelace LCSW Unavailable Unavailab Saul Kimball MD Unavailable Reason for Visit * Reason Onset Date Comments Med Question 10/04/2024 Encounter Details Date Type Department Care Team (Late st Contact Info) Description 10/04/2024 Telephone [facility] - Pulmonology 1225 [facility], [place] [address] Kunal Lennon MD [address] [place] [address] Med Question Social History Tobacco Use Types [...] on file Legal Sex 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 DENTAL OFFICE ASSISTANT Gender Identity Not on file Sexual [...] st Contact Info) Description 03/16/2025 2:00 PM DENTAL OFFICE ASSISTANT Office Visit [facility] - Neurology [address] [place] [address], [place] [phone] Gary Virgen APRN-SERVICE STATION CASHIER [address] [place] [address] 03/21/2025 11:00 AM DENTAL OFFICE ASSISTANT Office Visit [facility] - Sleep Services 1034 [address] [facility] 550 [place] [address] Maura Simmons APNP-SERVICE STATION CASHIER 1034 [address] [facility] 550 [place] [address] 05/25/2025 11:00 AM DENTAL OFFICE ASSISTANT Office Visit [facility] - Nephrology [facility]5 [facility] [place] [address] Francia Hammonds MD 1225 [facility] 3L [place] [address] 06/07/2025 11:00 AM DENTAL OFFICE ASSISTANT Office Visit [facility] - Cardiology 1034 S [facility] [address] [place] [address] Andrés Kaye MD 1034 [facility] [address] [place] [address] 09/13/2025 1:45 PM CDT Appointment [facility] CANCER CARE DRAWSTATION 3655 [facility], 2nd [place] [address] 09/13/2025 2:00 PM CDT Office Visit [facility] - Hematology/Oncology 3655 [place] [phone] Aubree Thomas MD 3655 [place] [address] documented as of this encounter Goals Goal [...] on filedocumented in this encounter Care Teams Group Insurance Special Agent Relationship Specialty Start Date End Date Saul Marcelino MD [address] [place] [phone] PCP - General Family Medicine 04/20/24 Francia Hammonds MD [address] [place] [address] 3 [place] [address] Bid Analyst Nephrology 11/24/24 Andre Mccann MD [address] [place] [phone] Hematology and Oncology 11/24/24 Ana Andersen MD [address] [place] [address] Hematology and Oncology 11/24/24 Vincent Sandra MD [address] [place] [address] Cold Saw Operator/Oncologis t Hematology and Oncology 11/24/24 Joan Wood MD [address] [place] [address] Cold Saw Operator/Oncologis t Hematology and Oncology 11/24/24 Lyudmila Bangura MD [address] [place] [address] Physician Hematology and Oncology 11/24/24 Gloria Alatorre MD [address] [place] [phone] Physician Hematology and Oncology 11/24/24 Mony Zaldivar, PharmD 11/24/24 Shirley Barahona, PharmD Pharmacist 11/24/24 Anastacia Garces, RN Registered Nurse 11/24/24 Tabatha Solorzano 11/24/24 Ness Ortiz 11/24/24 Grisel Dobbins, INDRA-SERVICE STATION CASHIER [address] [place] [phone] Nurse Practitioner Nurse Practitioner 11/24/24 Nannette Joshi, RN Registered Nurse 11/24/24 Sylwia Lovelace, [facility] 0587 [place] [address] Cigar Making Machine Operator 11/24/24 Saul Marcelino MD [address] [place] [address] Family Medicine 01/05/25 documented as of this encounter
--- OUTSIDE RECORDS SUMMARY | 2025-02-07 18:44 | XMS_ITS | Encounter Summary ---
Author Organization [facility] Address [facility]3 [facility] [address] Care Team Providers Care Data Assistant Name Role Phone Saul Marcelino MD Primary Care Provider [phone] None, Physician Primary Care Provider Unavailabl e Saul Marcelino MD Primary Care Provider [phone] Francia Hammonds MD Unavailable [phone] Andre Mccann MD Unavailable [phone] Ana Andersen MD Unavailable [phone] Vincent Sandra MD Unavailable Joan Wood MD Unavailable Lyudmila Bangura MD Unavailable Gloria Alatorre MD Unavailable Mony Zaldivar PharmD Unavailable Unavaila Shirley Barillas PharmD Unavailable Unavailable Anastacia Garces RN Unavailable Unavailable Tabatha Solorzano Unavailable Unavailable Ness Ortiz Unavailable Sarah Grisel Singh THERMITE BOMB LOADER-STRATEGIC PARTNERSHIP MANAGER Unavailable [phone] Nannette Joshi RN Unavailable Unavailable Sylwia LovelaceW Unavailable Unavailab Saul Kimball MD Unavailable Encounter Details Date Type Department Care Team (Late st Contact Info) Description 07/22/2023 Telephone [facility] - Neurology 1225 [facility], [place] [address] Taylor Perry MD Social History Tobacco Use [...] on file Legal Sex 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 BONE PLANT SUPERVISOR Gender Identity Not on file Sexual Orientation [...] Entry Date Author Yes 06/08/2023 11:20 AM BONE PLANT SUPERVISOR Michelle Galeas RN documented in this encounter Miscellaneous Notes * Telephone Encounter - Mariola San - 07/22/2023 3:30 PM CDT Pt is calling in today because she had a CT scan w contrast on her chest and trying to find out theresults. Callback number is [phone] documented in this encounter Plan of Treatment Upcoming Encounters Date Type Department Care Team (Late st Contact Info) Description 03/16/2025 2:00 PM BONE PLANT SUPERVISOR Office Visit [facility] - Neurology [address] [place] [address], [place] [address] Gary Virgen APRN-STRATEGIC PARTNERSHIP MANAGER 1225 [facility] 1L [place] [address] 03/21/2025 11:00 AM BONE PLANT SUPERVISOR [facility] [address] [facility] [address] [place] [address] Maura Simmons APNP-STRATEGIC PARTNERSHIP MANAGER [address] [facility] [address] [place] [address] 05/25/2025 11:00 AM BONE PLANT SUPERVISOR Office Visit [facility] - Nephrology [address]25 [facility], [place] [address] Francia Hammonds MD 1225 [facility] 3L [place] [address] 06/07/2025 11:00 AM BONE PLANT SUPERVISOR [facility] Visit [facility] - Cardiology [address] [facility], [address] [place] [address] Andrés Kaye MD 1034 [address] [facility] [address] [place] [address] 09/13/2025 1:45 PM CDT Appointment [facility] CANCER CARE DRAWSTATION 3655 [facility], 2nd [place] [address] 09/13/2025 2:00 PM CDT Office Visit [facility] - Hematology/Oncology [address] [place] [phone] Aubree Thomas MD [address]5 [place] [phone] documented as of this encounter Goals Goal [...] on filedocumented in this encounter Care Teams Data Assistant Relationship Specialty Start Date End Date Saul Marcelino MD [address] [place] [phone] PCP - General Family Medicine 09/17/22 02/09/24 None, Physician [facility]2 [place] [address] PCP - General 02/10/24 04/19/24 Saul Marcelino MD [address] [place] [address] PCP - General Family Medicine 04/20/24 Francia Hammonds MD [address] [place] [address] 3[facility] [place] [address] Curve Saw Operator Nephrology 11/24/24 [place] [address] [place] [phone] Hematology and Oncology 11/24/24 Ana Andersen MD [address] [place] [address] Hematology and Oncology 11/24/24 Vincent Sandra MD [address] [place] [address] Mining Engineering Technologist/Oncologis t Hematology and Oncology 11/24/24 Joan Wood MD [address] [place] [address] Mining Engineering Technologist/Oncologis t Hematology and Oncology 11/24/24 Lyudmila Bangura MD [address] [place] [address] Physician Hematology and Oncology 11/24/24 Gloria Alatorre MD [address] [place] [phone] Physician Hematology and Oncology 11/24/24 Mony Zaldivar, PharmD 11/24/24 Shirley Barahona, PharmD Pharmacist 11/24/24 Anastacia Garces, RN Registered Nurse 11/24/24 Tabatha Solorzano 11/24/24 Ness Ortiz 11/24/24 Grisel Dobbins, THERMITE BOMB LOADER-STRATEGIC PARTNERSHIP MANAGER [facility] [place] [phone] Nurse Practitioner Nurse Practitioner 11/24/24 Nannette Joshi, RN Registered Nurse 11/24/24 Sylwia Lovelace LCSW 3655 [place] [address] Manager Oracle 11/24/24 Saul Marcelino MD [address] [place], [place] [phone] Family Medicine 01/05/25 documented as of this encounter
--- OUTSIDE RECORDS SUMMARY | 2025-02-07 18:44 | XMS_ITS | Encounter Summary ---
Author Organization [facility] Address [facility]3 [facility] [place] [address] Care Team Providers Care Humanities Department Chair Name Role Phone Dontae Min DO Primary Care Provider [phone] Timmy Baldwin MD Primary Care Provider + [phone] Dontae Min DO Primary Care Provider [phone] Dontae Min DO Primary Care Provider [phone] Saul Marcelino MD Primary Care Provider [phone] None, Physician Primary Care Provider Unavailabl e Saul Marcelino MD Primary Care Provider [phone] Francia Hammonds MD Unavailable [phone] Andre Mccann MD Unavailable [phone] Ana Andersen MD Unavailable [phone] Vincent Sandra MD Unavailable [phone] Joan Wood MD Unavailable Lyudmila Bangura MD Unavailable Gloria Alatorre MD Unavailable Mony Zaldivar PharmD Unavailable Unavaila Shirley Barillas PharmD Unavailable Unavailable Anastacia Garces RN Unavailable Unavailable Tabatha Solorzano Unavailable Unavailable Ness Ortiz Unavailable Sarah Grisel Singh WATER MECHANIC-TEXTILE MACHINE OPERATOR Unavailable Nannette Joshi RN Unavailable Unavailable Sylwia Lovelace LCSW Unavailable Unavailab Saul Kimball MD Unavailable Encounter Details Date Type Department Care Team ([facility] Contact Info) Description 04/17/2022 Ambulatory Consult [facility] 3L [address] [facility], [place] [phone] Shelley Ortega, RN Social History Tobacco Use [...] on file Legal Sex 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 LEATHER STAMPER Gender Identity Not on file Sexual Orientation Not on file COVID-19 Exposure Response Date Recorded In the last 10 days, have yo u been in contact with someone who was confirmed or suspected to have Coronavirus/COVID-19? No / Unsure 04/10/2022 3:01 PM LEATHER STAMPER documented as of this encounter Plan of Treatment Upcoming Encounters Date Type Department Care Team (Late Contact Info) Description 03/16/2025 2:00 PM LEATHER STAMPER Office Visit [facility] - Neurology [address] [facility], [place] [phone] Gary Virgen WATER MECHANIC-TEXTILE MACHINE OPERATOR [address] [place] [address] 03/21/2025 11:00 AM LEATHER STAMPER Office Visit [facility] - Sleep Services [address] [facility] [address] [place] [address] Maura Simmons, APNP-TEXTILE MACHINE OPERATOR [address] [facility] [address] [place] [address] 05/25/2025 11:00 AM LEATHER STAMPER Office Visit [facility] - Nephrology [address] [facility], [place] [address] Francia Hammonds MD [address] [facility] 3L [place] [address] 06/07/2025 11:00 AM LEATHER STAMPER Office Visit [facility] - Cardiology [address] [facility], [address] [place] [address] Andrés Kaye MD [address] [facility] [address] [place] [address] 09/13/2025 1:45 PM CDT Appointment [facility] DRAW[facility] [address] [facility], 2nd [place] [address] 09/13/2025 2:00 PM CDT Office Visit [facility] - Hematology/Oncology [address] [place] [address] Aubree [place] MD [address] [place] [address] documented as of this encounter Goals Goal [...] on filedocumented in this encounter Care Teams Humanities Department Chair Relationship Specialty Start Date End Date Dontae Min DO [address] [place] [address] PCP - General 06/15/19 05/11/22 [place] [address] [address] PCP - General 05/12/22 06/03/22 Dontae Min DO [address] [place] [address] PCP - General 06/04/22 06/09/22 Dontae Min DO [address] [place] [address] PCP - General 06/10/22 09/16/22 Saul Marcelino MD [address] [place] [address] PCP - General Family Medicine 09/17/22 02/09/24 None, Physician [address] [place] [address] PCP - General 02/10/24 04/19/24 Saul Marcelino MD [address] [place] [address] PCP - General Family Medicine 04/20/24 Francia Hammonds MD [facility]5 [facility] 3[facility] [place] [address] Piece Presser Nephrology 11/24/24 Andre Mccann MD [address] [place] [address] Hematology and Oncology 11/24/24 Ana Andersen MD [address] [place] [address] Hematology and Oncology 11/24/24 Vincent Sandra MD [address] [place] [address] Retention Specialist/Oncologis t Hematology and Oncology 11/24/24 Joan Wood MD [address] [place] [address] Retention Specialist/Oncologis t Hematology and Oncology 11/24/24 Lyudmila Bangura MD [address] [address] Physician Hematology and Oncology 11/24/24 Gloria Alatorre MD [address] [place] [address] Physician Hematology and Oncology 11/24/24 Mony Zaldivar, PharmD 11/24/24 Shirley Barahona, PharmD Pharmacist 11/24/24 Anastacia Garces RN Registered Nurse 11/24/24 Tabatha Solorzano 11/24/24 Ness Ortiz 11/24/24 Grisel Dobbins APRN-TEXTILE MACHINE OPERATOR [address] [place] [address] Nurse Practitioner Nurse Practitioner 11/24/24 Nannette Joshi, RN Registered Nurse 11/24/24 Sylwia Lovelace LCSW [address] [place] [address] Metal Machinist 11/24/24 Saul Marcelino MD [address] [place] [address] Family Medicine 01/05/25 documented as of this encounter
--- OUTSIDE RECORDS SUMMARY | 2025-02-07 18:44 | XMS_ITS | Encounter Summary ---
Author Organization [facility] Address [facility]3 [facility] [place] [address] Care Team Providers Care Pressroom Foreman Name Role Phone Saul Marcelino MD Primary Care Provider [phone] Francia Hammonds MD Unavailable [phone] Andre Mccann MD Unavailable [phone] Ana Andersen MD Unavailable [phone] Vincent Sandra MD Unavailable [phone] Joan Wood MD Unavailable Lyudmila Bangura MD Unavailable Gloria Alatorre MD Unavailable Mony Zaldivar PharmD Unavailable Unavaila Shirley Barillas PharmD Unavailable Unavailable Anastacia Garces RN Unavailable Unavailable Tabatha Solorzano Unavailable Unavailable Ness Ortiz Unavailable Sarah Grisel Singh HOUSE MOTHER-WIRE WEAVER CLOTH Unavailable Nannette Joshi RN Unavailable Unavailable Sylwia Lovelace WASHING MACHINE MECHANIC Unavailable Unavailab Saul Kimball MD Unavailable Encounter Details Date Type Department Care Team (Late st Contact Info) Description 01/18/2025 Lab Requisition [facility] - Pathology Lab [address] [place] [phone] Francia Hammonds MD [address] [place] [address] Chronic kidney disease, stage 3 unspecified (HCC) [...] on file Legal Sex 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 RETAIL MERCHANDISER Gender Identity Not on file Sexual Orientation Not on file Occupation Industry Job Start Date Job End Date 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 Not on file [...] st Contact Info) Description 03/16/2025 2:00 PM RETAIL MERCHANDISER Office Visit [facility] - Neurology [address] [place] [address], [place] [address] Gary Virgen APRN-WIRE WEAVER CLOTH [facility]5 [facility] 1L [place] [address] 03/21/2025 11:00 AM RETAIL MERCHANDISER Office Visit [facility] - Sleep Services [facility] [address] Maura Simmons APELISSA-WIRE WEAVER CLOTH [address] [place] [phone] 05/25/2025 11:00 AM RETAIL MERCHANDISER Office Visit [facility] - Nephrology [address] [place] [address], [place] [address] Francia Hammonds MD [address] [place] [address] 3L [place] [address] 06/07/2025 11:00 AM RETAIL MERCHANDISER Office Visit [facility] - Cardiology [facility]4 [facility], [address] [address] Andrés Kaye MD [address] [place] [address] [place] [address] 09/13/2025 1:45 PM CDT Appointment [facility] CANCER CARE DRAWSTATION [address] [facility], 2nd [place] [address] 09/13/2025 2:00 PM CDT Office Visit [facility] - Hematology/Oncology [address] [place] [address] Aubree [place] MD [address] [place] [address] documented as of this encounter [...] CDT) Case Report Gynecologic Cytology Report Case: [id number] Authorizing Provider: Francia Hammonds MD Collected: 01/16/2025 10:40 AM Ordering Location: [facility] - Received: 01/18/2025 08:40 AM Pathology Lab First Screen: Beau Herring Specimen: EM RENAL - [facility], Kidney, Left, One piece approx. 2 mm long. 01/31/2025 3:50 PM CDT [facility] PATHOLOGY LAB Electron Microscopy Technical Summary # of Block(s) cut: 4 # of Glomeruli found: 2 # of Glomeruli photographed: 1 01/31/2025 3:50 PM CDT [facility] PATH[facility] LAB Pathologist Location at [facility] 01/31/2025 3:50 PM CDT [facility] PATH[facility]Y LAB Embedded Images - EM 01/31/2025 3:50 PM CDT [facility] PATHOLOGY LAB Pathology/Cytolo gy (Kidney, Left) 01/16/2025 10:40 AM CDT 01/18/2025 8:40 AM CDT Francia Hammonds MD LAB - PATHOLOGY/CYTOLOGY ORDERA BLES Final Result [facility] PATHOLOGY LAB [address] [phone] documented in this encounter Visit Diagnoses Diagnosis Chronic kidney disease, stage 3 unspecified (HCC) documented in this encounter Care Teams Pressroom Foreman Relationship Specialty Start Date End Date Saul Marcelino MD [address] [place] [phone] PCP - General Family Medicine 04/20/24 Francia Hammonds MD [address] [place] [address] 3L [place] [address] Land Developer Nephrology 11/24/24 Andre Mccann MD [address] [place] [phone] Hematology and Oncology 11/24/24 Ana Andersen MD [address] [place] [address] Hematology and Oncology 11/24/24 Vincent Sandra MD [address] [place] [address] Deputy Editor In Chief/Oncologis t Hematology and Oncology 11/24/24 Joan Wood MD [address] [place] [address] Deputy Editor In Chief/Oncologis t Hematology and Oncology 11/24/24 Lyudmila Bangura MD [address] [address] Physician Hematology and Oncology 11/24/24 Gloria Alatorre MD [address] [place] [address] Physician Hematology and Oncology 11/24/24 Mony Zaldivar, PharmD 11/24/24 Shirley Barahona, PharmD Pharmacist 11/24/24 Anastacia Garces RN Registered Nurse 11/24/24 Tabatha Solorzano 11/24/24 Ness Ortiz 11/24/24 Grisel Dobbins, HOUSE MOTHER-WIRE WEAVER CLOTH [address] [place] [address] Nurse Practitioner Nurse Practitioner 11/24/24 Nannette Joshi, RN Registered Nurse 11/24/24 Sylwia Lovelace LCSW [address] [place] [address] Site Specialist 11/24/24 Saul Marcelino MD [address] [place] [address] Family Medicine 01/05/25 documented as of this encounter
--- OUTSIDE RECORDS SUMMARY | 2025-02-07 18:44 | XMS_ITS | Encounter Summary ---
Author Organization [facility] Address [facility]3 [facility] [place] [address] Care Team Providers Care Tunneling Machine Operator Name Role Phone Saul Marcelino MD Primary Care Provider [phone] Francia Hammonds MD Unavailable [phone] Andre Mccann MD Unavailable [phone] Ana Andersen MD Unavailable [phone] Vincent Sandra MD Unavailable Joan Wood MD Unavailable Lyudmila Bangura MD Unavailable Gloria Alatorre MD Unavailable Mony Zaldivar PharmD Unavailable Unavaila Shirley Barillas PharmD Unavailable Unavailable Anastacia Garces RN Unavailable Unavailable Tabatha Solorzano Unavailable Unavailable Ness Ortiz Unavailable Sarah Grisel Singh CQ DEVELOPER-LEAD GENERATOR Unavailable [phone] Nannette Joshi RN Unavailable Unavailable Sylwia Lovelace GUEST ASSOCIATE Unavailable Unavailab Saul Kimball MD Unavailable Reason for Visit * Reason Onset Date Comments Order 04/26/2024 Encounter Details Date Type Department Care Team (Late st Contact Info) Description 04/26/2024 Telephone [facility] [address] [facility] [place] [address] Maura Simmons, APNP-LEAD GENERATOR [address] [place] [phone] Order Social History Tobacco Use Types Packs/Day [...] on file Legal Sex 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 RESIDENTIAL YOUTH COUNSELOR Gender Identity Not on file Sexual Orientation [...] for her CPAP Patient Call Back number: [phone] DENTIAL YOUTH COUNSELOR documented in this encounter Plan of Treatment Upcoming Encounters Date Type Department Care Team (Late st Contact Info) Description 03/16/2025 2:00 PM RESIDENTIAL YOUTH COUNSELOR Office Visit [facility] - Neurology [address] [place] [address], [place] [address] Gary Virgen APRN-LEAD GENERATOR [address] [facility] 1L [place] [phone] 03/21/2025 11:00 AM RESIDENTIAL YOUTH COUNSELOR Office Visit [facility] - Sleep Services [address] [address] Maura Simmons APELISSA-LEAD GENERATOR [address] [address] 05/25/2025 11:00 AM RESIDENTIAL YOUTH COUNSELOR [facility] [address] [place] [address], [place] [address] Francia Hammonds MD [address] [place] [address] 3L [place] [address] 06/07/2025 11:00 AM RESIDENTIAL YOUTH COUNSELOR Office Visit [facility] Group - Cardiology [address] [facility], [address] [place] [phone] Andrés Kaye MD [address] [facility] [address] [place] [address] 09/13/2025 1:45 PM CDT Appointment [facility] CANCER CARE DRAWSTATION [address] [facility], 2nd [place] [address] 09/13/2025 2:00 PM CDT Office Visit [facility] Group - Hematology/Oncology [address] [place] [phone] Aubree [place] MD [address] [place] [address] documented as of this encounter [...] on filedocumented in this encounter Care Teams Tunneling Machine Operator Relationship Specialty Start Date End Date Saul Marcelino MD [address] [place] [phone] PCP - General Family Medicine 04/20/24 [place] [address] [place] [address] 3L [place] [address] Caustic Operator Nephrology 11/24/24 Andre Mccann MD [address] [place] [phone] Hematology and Oncology 11/24/24 Ana Andersen MD [address] [place] [address] Hematology and Oncology 11/24/24 Vincent Sandra MD [address] [place] [address] Hang Gliding Instructor/Oncologis t Hematology and Oncology 11/24/24 Joan Wood MD [address] [place] [address] Hang Gliding Instructor/Oncologis t Hematology and Oncology 11/24/24 Lyudmila Bangura MD [address] [address] Physician Hematology and Oncology 11/24/24 Gloria Alatorre MD [address] [place] [phone] Physician Hematology and Oncology 11/24/24 Mony Zaldivar, PharmD 11/24/24 Shirley Barahona, PharmD Pharmacist 11/24/24 Anastacia Garces RN Registered Nurse 11/24/24 Tabatha Solorzano 11/24/24 Ness Ortiz 11/24/24 Grisel Dobbins, INDRA-LEAD GENERATOR [address] [place] [address] Nurse Practitioner Nurse Practitioner 11/24/24 Nannette Joshi, RN Registered Nurse 11/24/24 Sylwia Lovelace LCSW [address] [place] [address] Rn Child 11/24/24 Saul Marcelino MD [address] [place] [address] Family Medicine 01/05/25 documented as of this encounter
--- OUTSIDE RECORDS SUMMARY | 2025-02-07 18:45 | XMS_ITS | Clinical Summary ---
Author Organization [facility] Address [address] [place] [address] Care Team Providers Care Cheese Weigher Name Role Phone Saul Marcelino MD Primary Care Provider [phone] Francia Hammonds MD Unavailable [phone] Andre Mccann MD Unavailable [phone] Ana Andersen MD Unavailable [phone] Vincent Sandra MD Unavailable Joan Wood MD Unavailable Lyudmila Bangura MD Unavailable Gloria Alatorre MD Unavailable Mony Zaldivar PharmD Unavailable Unavaila Shirley Barillas PharmD Unavailable Unavailable Anastacia Garces RN Unavailable Unavailable Tabatha Solorzano Unavailable Unavailable Ness Ortiz Unavailable Sarah Grisel Singh [employer] PUMP OPERATOR-SENIOR TECHNICAL BUSINESS ANALYST Unavailable [phone] Nannette Joshi RN Unavailable Unavailable Sylwia Lovelace ADMITTING CLERK Unavailable Unavailab Saul Kimball MD Unavailable Source Comments [facility],non-owned Affiliates and Associated Physician Practices is amultiple site organization consisting of ambulatory clinics and hospital sitesin [place], [place], [place] and [place]. This disclosure is being madepursuant to the [...] Assessment & Plan (01/17/2025 1:37 PM CDT): [id number]. Longstanding CKD. Did not follow with nephrology [...] Assessment & Plan (01/16/2025 7:32 PM CDT): [id number]. Longstanding CKD. Did not follow with nephrology [...] artery disease of n ative artery of [place] heart with stable angina pectoris 09/17/2022 Angina pectoris 06/25/2022 Overview (06/25/2022): Added automatically from request for surgery [id number] Nontoxic multinodular goiter 12/28/2020 Overview (02/13/2021): Last [...] Department Care Team Description 02/06/2025 2:[address] SQL DEVELOPER Hospital Encounter [facility] CAT SCAN [address] [place] [phone] Beau Myrick MD 01/24/2025 Telephone [facility] - Nephrology [address] [facility] [place] [phone] Fely Cook, KIMO Results 01/20/2025 Telephone [facility] - Centralized Scheduling [address] [place] [address] Gary Virgen APRN-SENIOR TECHNICAL BUSINESS ANALYST Follow-up (Spk to Eduarda, stated she is needing a sooner appointment with Dr Virgen. She is currently scheduled for 03/16/2025 @ for 60min. She was just released from the hospital 01/17/2025. She also stated her right arm has been numb. Please reach out to Eduarda for further assistance.) 01/18/2025 Lab Requisition [facility] - Pathology Lab [address] [place] [address] Francia Hammonds MD Chronic kidney disease, stage 3 unspecified (HCC) 01/16/2025 7:31 AM CDT - 01/17/2025 2:44 PM CDT Hospital Encounter [facility] 6S ACUTE [address] [place] [phone] Francia Hammonds MD Jain, Aman, DO Fritz, Adam, MD [facility] Radiology Discharge Disposition: Home Health Care Svc 01/16/2025 Travel 01/13/2025 Telephone [facility] IVR [address] [place] [phone] Rodger Gutiérrez, RN Appointment 01/10/2025 Orders Only [facility] - Nephrology [address] [place] [phone] Francia Hammonds MD Stage 3 chronic kidney disease, unspecified whether stage 3a or 3b CKD (HCC) 01/09/2025 Telephone [facility] - Centralized Scheduling [address] [place] [phone] Andrés Kaye MD Echocardiogram; Results; Patient Requested Call 01/06/2025 Refill [facility] - Cardiology [facility] [address] [address] Andrés Kaye MD Refill Request 01/05/2025 9:49 AM CDT - 01/05/2025 11:59 PM CDT Hospital Encounter [facility] LAB OP DRAW STATION [address] [place] [address] Francia Hammonds MD Discharge Disposition: Home or Self Care 01/05/2025 8:30 AM CDT Office Visit [facility] - Nephrology [address] [place] [phone] Francia Hammonds MD Stage 3 chronic kidney disease, unspecified whether stage 3a or 3b CKD (HCC) (Primary Dx); Proteinuria, unspecified type; Monoclonal gammopathy; Medication monitoring encounter; Nephrolithiasis 01/05/2025 Travel 01/04/2025 11:00 AM CDT Ancillary Procedure [facility] - Echosonography [address] [place] [phone] Chronic obstructive pulmonary disease, unspecified COPD type (HCC); Essential hypertension; Coronary artery disease of [place] artery of [place] heart with stable angina pectoris 01/04/2025 Travel 12/29/2024 Refill [facility] - Pulmonology [address] [place] [phone] Maico Murphy MD Refill Request 12/07/2024 11:15 AM CDT Office Visit [facility] - Cardiology [address] [place] [address], [facility] [address] [place] [address] Andrés Kaye MD Chronic obstructive pulmonary disease, unspecified COPD type (HCC) (Primary Dx); Essential hypertension; Coronary artery disease of [place] artery of [place] heart with stable angina pectoris; BERTA (obstructive sleep apnea); Mixed hyperlipidemia 12/07/2024 Travel 11/30/2024 2:08 PM CDT - 11/30/2024 11:59 PM CDT Hospital Encounter [facility] US [address] [place] [address] Adarsh Menendez MD Discharge Disposition: Home or Self Care 11/30/2024 Travel 11/30/2024 Telephone [facility] - GI [address] [place] [phone] Jackeline Umanzor MD Results 11/25/2024 Telephone [facility] - Nephrology [address] [place] [phone] Francia Hammonds MD Follow-up 11/25/2024 Telephone [facility] BMT CLINIC [address] [place] [address] Jayla Steiner 11/23/2024 Orders Only [facility] - Nephrology [address] [place] [phone] Francia Hammonds MD Proteinuria, unspecified type 11/23/2024 Telephone [facility] - Nephrology [address] [place] [phone] Huong Espinal, KIMO Question 11/23/2024 Telephone [facility] - Nephrology [address] [place] [phone] Francia Hammonds MD LABS ONLY; Follow-up 11/17/2024 1:20 PM CDT Anesthesia Event [facility] ENDOSCOPY [address] [place] [phone] Claude Parekh MD 11/17/2024 12:30 PM CDT - 11/17/2024 1:15 PM CDT Surgery [facility] ENDOSCOPY [address] [place] [address] Jewel Dooley MD COLONOSCOPY SCREEN--- extended prep 11/17/2024 10:52 AM CDT - 11/17/2024 3:29 PM CDT Hospital Encounter [facility] BRIGETTE OP [address] [place] [address] Jewel Dooley MD Surgery General Discharge Disposition: Home or Self Care 11/17/2024 Travel 11/14/2024 Travel 11/11/2024 1:15 PM CDT - 11/11/2024 11:59 PM CDT Hospital Encounter [facility] LAB OP DRAW STATION [address] [place] [address] Discharge Disposition: Home or Self Care 11/11/2024 Travel 11/09/2024 Orders Only [facility] ENDOSCOPY [address] [place] [address] Radha Steiner RN from Last 3 Months [...] on file Legal Sex 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 SQL DEVELOPER Gender Identity Not on file Sexual Orientation Not on file Occupation Industry Job Start Date Job End Date former worked in [employer] and [employer] people Not on file Not on file [...] st Contact Info) Description 03/16/2025 2:[address] SQL DEVELOPER [facility] [address] [place] [address], [place] [address] Gary Virgen APRN-SENIOR TECHNICAL BUSINESS ANALYST [facility] 1L [place] [phone] 03/21/2025 11:[address] SQL DEVELOPER Office Visit [facility] - Sleep Services [address] [facility] [address] [place] [address] Maura Simmons APNP-SENIOR TECHNICAL BUSINESS ANALYST [address] [facility] [address] [place] [address] 05/25/2025 11:[address] SQL DEVELOPER [facility], [place] [address] Francia Hammonds MD [address] [facility] 3L [place] [address] 06/07/2025 11:[address] SQL DEVELOPER Office Visit [facility] - Cardiology [address] [facility], [facility] [address] [place] [address] Andrés Kaye MD [address] [facility] [address] [place] [address] 09/13/2025 1:45 PM CDT Appointment [facility] CANCER CARE DRAWSTATION [address] [place] [address] 09/13/2025 2:00 PM CDT Office Visit [facility] - Hematology/Oncology [address] [place] [address] Aubree Thomas MD [address] [place] [address] Health Maintenance Due Date Last [...] the bathroom Medical Devices Implanted Type Area Global Marketing Manager Device Identifier Shelf Expiration Date Model / Serial / Lot Sys Cor Stent Sng Xd Mr 2.25mm 20mm Dlv - [id number] Implanted:Qty: 1 on 08/17/2023 by Jeane Lu MD at [facility] Left: Coronary [place] [employer] [id number] 07/14/2024 [id number] / [id number] Procedures Procedure Name Priority Date/Time Associated Diagnosis [...] (HCC) Essential hypertension Coronary artery disease of [place] artery of [place] heart with stable angina pectoris US KIDNEY WITH DOPPLER Routine 11/30/2024 4:04 PM CDT Persistent proteinuria Chronic kidney disease, stage 3b (HCC) PATHOLOGY TISSUE Routine 11/17/2024 1:51 PM CDT Colon cancer screening NM COLOREC CANC SCRN,SCOPY NOT HI RISK 11/17/2024 1:16 PM CDT Colon cancer screening Special Needs Message Received: Today Radha Steiner RN Feilner, Michelle, RN Previous Messages ----- Message ----- From: Jackeline Umanzor MD Sent: 08/15/2024 3:41 PM CDT To: [facility] Schedulers - Endoscopy Pool This patient had [...] 3b chronic kidney disease (HCC) Persistent proteinuria MPO/NM 3 AUTOANTIBODIES PANEL Routine 11/11/2024 1:28 PM [...] 4.0 - 10.7 x10E9/L 01/17/2025 6:07 AM [facility] RBC Count 3.29(L) 3.90 - 5.20 x10E12/L 01/17/2025 6:07 AM [facility] Hemoglobin 10.0(L) 11.9 - 15.8 g/dL 01/17/2025 6:07 AM [facility] Hematocrit 31.3(L) 34.8 - 46.1 % 01/17/2025 6:07 AM [facility] MCV 95.1 80.0 - 98.0 fL 01/17/2025 6:07 AM [facility] MCH 30.4 26.7 - 33.6 pg 01/17/2025 6:07 AM [facility] MCHC 31.9 31.7 - 36.3 g/dL 01/17/2025 6:07 AM [facility] RDW-CV 14.1 11.3 - 14.8 % 01/17/2025 6:07 AM [facility] Platelet Count 192 150 - 420 x10E9/L 01/17/2025 6:07 AM [facility] MPV 11.3 7.8 - 11.4 fL 01/17/2025 6:07 AM [facility] Neutrophil % 70.9 41.0 - 74.0 % 01/17/2025 6:07 AM [facility] Lymphocyte % 17.2 17.0 - 47.0 % 01/17/2025 6:07 AM [facility] Monocyte % 9.0 3.0 - 11.0 % 01/17/2025 6:07 AM [facility] Eosinophil % 2.1 0.0 - 7.0 % 01/17/2025 6:07 AM [facility] Basophil % 0.3 0.0 - 1.6 % 01/17/2025 6:07 AM [facility] Immature Granulocytes % 0.5 0.0 - 1.0 % 01/17/2025 6:07 AM [facility] Neutrophil Absolute 6.71 1.60 - 7.50 x10E9/L 01/17/2025 6:07 AM [facility] Lymphocyte Absolute 1.63 1.00 - 4.40 x10E9/L 01/17/2025 6:07 AM [facility] Monocyte Absolute 0.85 0.15 - 1.00 x10E9/L 01/17/2025 6:07 AM [facility] Eosinophil Absolute 0.20 0.00 - 0.60 x10E9/L 01/17/2025 6:07 AM [facility] Basophil Absolute 0.03 0.00 - 0.13 x10E9/L 01/17/2025 6:07 AM [facility] Blood BLOOD SPECIMEN / Unknown Lab Venipuncture / Unknown 01/17/2025 5:18 AM CDT 01/17/2025 6:02 AM CDT us Carina Restrepo MD LAB - HEMATOLOGY ORDERABLES F inal Result [facility] [address] [place] [address], [facility] [phone] * (ABNORMAL) COMPREHENSIVE METABOLIC PANEL (01/17/2025 5:18 AM CDT) Only the most recent of2 resultswithin the time period is included. BUN 39(H) 7 - 26 mg/dL 01/17/2025 6:30 AM [facility] Creatinine 2.07(H) 0.56 - 0.96 mg/dL 01/17/2025 6:30 AM [facility] Sodium 143 136 - 145 mmol/L 01/17/2025 6:30 AM [facility] Potassium 3.5 3.5 - 4.5 mmol/L 01/17/2025 6:30 AM [facility] Chloride 110(H) 98 - 107 mmol/L 01/17/2025 6:30 AM [facility] CO2 25 22 - 29 mmol/L 01/17/2025 6:30 AM [facility] Glucose 90 70 - 99 mg/dL 01/17/2025 6:30 AM [facility] Calcium 8.1(L) 8.4 - 10.2 mg/dL 01/17/2025 6:30 AM [facility] Protein Total 6.1 6.0 - 8.3 g/dL 01/17/2025 6:30 AM [facility] Albumin 2.8(L) 3.4 - 5.0 g/dL 01/17/2025 6:30 AM [facility] Bilirubin Total 0.3 0.2 - 1.2 mg/dL 01/17/2025 6:30 AM [facility] Alkaline Phosphatase 96 40 - 150 U/L 01/17/2025 6:30 AM [facility] ALT 13 5 - 55 U/L 01/17/2025 6:30 AM [facility] AST 19 5 - 34 U/L 01/17/2025 6:30 AM [facility] Anion Gap 8 6 - 16 01/17/2025 6:30 AM [facility] BUN/Creatinine Ratio 19 7 - 23 01/17/2025 6:30 AM [facility] Osmolality Calculated 305(H) 275 - 295 mOsm/kg 01/17/2025 6:30 AM [facility] Albumin/Globulin Ratio 0.8(L) 1.1 - 2.3 01/17/2025 6:30 AM [facility] eGFR by CKD-EPI 26(L) >=90 mL/min/1.7 3 m2 01/17/2025 6:30 AM [facility] Comment:Estimated Glomerular Filtration Rate (eGFR) calculated using the CKD-EPI Creatinine Equation (2020), per the National Kidney Foundation and [place] Society of Nephrology recommendations. Blood BLOOD SPECIMEN / Unknown Lab Venipuncture / Unknown 01/17/2025 5:18 AM CDT 01/17/2025 6:03 AM CDT us Merlin Nieves DO LAB - CHEMISTRY ORDERABLES Final Result [facility] [address] [place] [address], [facility] [phone] * PATHOLOGY TISSUE (01/16/2025 10:40 AM CDT) Only the most recent of2 resultswithin the time period is included. Case Report Surgical Pathology Report Case: [id number] Authorizing Provider: Francia Hammonds MD Collected: 01/16/2025 10:40 AM Ordering Location: [facility] BR[facility]ETTE OP Received: 01/16/2025 11:26 AM Pathologist: Luke Sanderson MD Specimen: Kidney Biopsy, LEFT KIDNEY 3:02 PM [facility] PATHOLOGY LAB Final Diagnosis Kidney, [...] be reported in an addendum. 3:02 PM [facility]Y LAB at 1651 CDT [...] stain is negative for amyloid. 3:02 PM [facility] Clinical History The patient is a 69-year-old woman with hypertension, obesity, and monoclonal gammopathy who underwent percutaneous needle biopsy of the left kidney. Laboratory data include creatinine of 2.23 and urinalysis with 2+ protein and no blood. 3:02 PM [facility] Gross Description Received fresh on Telfa on ice are six needle cores of lopez-white tissue with diameters of 0.1 cm and lengths ranging from 0.3 cm to 1.0 cm. The specimen is submitted in its entirety for light microscopic, immunofluorescence, and electron microscopic analyses. 3:02 PM [facility] Immunofluorescence 2 FS H&E, 1 IgG, 1 IgA, 1 IgM, 1 C1q, 1 C3, 1 albumin, 1 fibrinogen, 1 kappa, 1 lambda. H&E: Shows fibroadipose connective tissue and a minute fragment of renal parenchyma with no glomeruli. IgG, IgA, IgM, C1q, C3, albumin: No glomeruli present. Fibrinogen: Nonspecific label. [place], lambda: 2+ label of rare cast. 3:02 PM [facility] Addendum 1 Electron Microscopy: [id number]. Lty-qacjombeiz-vwqu k, bygzlabsp-mdxl-cldq scott sections of three blocks are reviewed; one is selected for ultrastructural analysis. Transmission electron microscopic analysis of a single glomerulus shows mild effacement of visceral epithelial foot processes, segmental mild thickening of the basement membrane, unremarkable endothelium, and a moderate increase in mesangial matrix. EM Interpretation: - Nonspecific ultrastructural alterations. 3:02 PM [facility] Addendum electronically signed by Luke Sanderson MD on 02/06/2025 at [address]2 [facility] at [facility] 3:02 PM [facility] Disclaimer The performance characteristics of all immunohistochemical and indirect immunofluorescence stains (if any) cited in this report were determined by the Histopathology Laboratory of [facility]. Some of these tests were [...] interpretation of this case is performed by [facility] at [facility], [address] [place] [address]. 3:02 PM [facility] Collected By Bryant Lozada MD 3:02 PM [facility] Embedded Images 3:02 PM [facility] Pathology/Cytolo gy KIDNEY BIOPSY SPECIMEN / Unknown Collection / Unknown 01/16/2025 10:40 AM CDT 01/16/2025 11:26 AM CDT Francia Hammonds MD LAB - PATHOLOGY/CYTOLOGY ORDERA BLES Edited Result - Final [facility] PATHOLOGY LAB [address] [place] [address], [facility] [phone] * ELECTRON MICROSCOPY ([facility]) (01/16/2025 10:40 AM CDT) Case Report Gynecologic Cytology Report Case: [id number] Authorizing Provider: Francia Hammonds MD Collected: 01/16/2025 10:40 AM Ordering Location: [facility] - Received: 01/18/2025 08:40 AM Pathology Lab First Screen: Beau Herring Specimen: EM RENAL - [facility], Kidney, Left, One piece approx. 2 mm long. 01/31/2025 3:50 PM CDT [facility] PATHOLOGY LAB Electron Microscopy Technical Summary # of Block(s) cut: 4 # of Glomeruli found: 2 # of Glomeruli photographed: 1 01/31/2025 3:50 PM CDT [facility] Pathologist Location at [facility] 01/31/2025 3:50 PM CDT [facility] Embedded Images - EM 01/31/2025 3:50 PM CDT [facility] Pathology/Cytolo gy (Kidney, Left) 01/16/2025 10:40 AM CDT 01/18/2025 8:40 AM CDT Francia Hammonds MD LAB - PATHOLOGY/CYTOLOGY ORDERA BLES Final Result Performing Organization Address City/State/[facility] Co de Phone Number [facility] PATHOLOGY LAB [address] [place] [address], [facility] [phone] * IR US Guide Needle Placement (01/16/2025 [...] evaluation, please review the evaluation forms in [facility]. For details on monitored clinical parameters during the intra-service sedation time, please review the procedure nurse documentation in [facility]. > Interpreting Provider: Bryant Lozada [...] Negligible Contrast: None Complications: None immediate. PROCEDURE: Inspector Quality Assurance: Francia Hammonds Attending/Collar Closer Lockstitch: Bryant Lozada Indication: Increased creatinine After the [...] the skin and subcutaneous tissue. Using the [place] guidance system A trocar was passed from [...] Negligible Contrast: None Complications: None immediate. PROCEDURE: Inspector Quality Assurance: Francia Hammonds Attending/Collar Closer Lockstitch: Bryant Lozada Indication: Increased creatinine After the [...] numb the skin and subcutaneous tissue. Using theShompton guidance system A trocar was passed from [...] UA Yellow Yellow, Straw 01/16/2025 8:48 AM [facility] Clarity UA Clear Clear 01/16/2025 8:48 AM [facility] Glucose UA Normal Normal 01/16/2025 8:48 AM [facility] Bilirubin UA Negative Negative 01/16/2025 8:48 AM [facility] Ketone UA Negative Negative 01/16/2025 8:48 AM [facility] Specific [place] UA 1.015 1.005 - 1.030 01/16/2025 8:48 AM [facility] Blood UA Negative Negative 01/16/2025 8:48 AM [facility] pH UA 5.5 5.0 - 8.0 01/16/2025 8:48 AM [facility] Protein UA 2+(A) Negative 01/16/2025 8:48 AM [facility] Urobilinogen UA Normal Normal mg/dL 025 8:48 AM [facility] Nitrite UA Negative Negative 01/16/2025 8:48 AM [facility] Leukocyte Esterase UA Negative Negative 01/16/2025 8:48 AM CDT [facility] Urine URINE SPECIMEN OBTAINED BY CLEAN CATCH PROCEDURE / Unknown Collection / Unknown 01/16/2025 8:39 AM CDT 01/16/2025 8:43 AM CDT us Francia Hammonds MD LAB - URINALYSIS ORDERABLES Fin al Result Performing Organization Address [facility] de Phone Number [address] [address], [facility] [phone] * PT-INR (01/16/2025 8:14 AM CDT) Only the most recent of3 resultswithin the time period is included. PT 13.8 12.1 - 14.8 Seconds 01/16/2025 8:49 AM CDT [facility] INR 1.1 See Comment 01/16/2025 8:49 AM T [facility] Comment:The suggested therap eutic range for [...] ORDERABLES Fi nal Result Performing Organization Address [facility] Co de Phone Number [address] [address], [facility] [phone] * (ABNORMAL) CBC W/O DIFFERENTIAL (01/16/2025 8:14 AM CDT) WBC 10.5 4.0 - 10.7 x10E9/L 01/16/2025 8:32 AM CDT [facility] RBC Count 3.38(L) 3.90 - 5.20 x10E12/L 01/16/2025 8:32 AM CDT [facility] Hemoglobin 10.1(L) 11.9 - 15.8 g/dL 01/16/2025 8:32 AM T [facility] Hematocrit 31.6(L) 34.8 - 46.1 % 01/16/2025 8:32 AM T [facility] MCV 93.5 80.0 - 98.0 fL 01/16/2025 8:32 AM T [facility] MCH 29.9 26.7 - 33.6 pg 01/16/2025 8:32 AM CDT [facility] MCHC 32.0 31.7 - 36.3 g/dL 01/16/2025 8:32 AM T [facility] RDW-CV 14.1 11.3 - 14.8 % 01/16/2025 8:32 AM T [facility] Platelet Count 190 150 - 420 x10E9/L 01/16/2025 8:32 AM T [facility] MPV 11.2 7.8 - 11.4 fL 01/16/2025 8:32 AM T [facility] Blood BLOOD SPECIMEN / Unknown Venipuncture / Unknown 01/16/2025 8:14 AM CDT 01/16/2025 8:24 AM CDT us Francia Hammonds MD LAB - HEMATOLOGY ORDERABLES Fin al Result [address] [address], [facility] [phone] * PHOSPHOLIPASE A2 RECEPTOR AB IGG RFLX TITER (01/05/2025 9:48 AM CDT) Phospholipase A2 Receptor IgG <1:10 <1:10 01/07/2025 4:12 PM CDT [employer] ([facility]) Comment: Clinical Interpretation: Phospholipase A2 Receptor Antibody, IgG is not detected. No further testing will be performed. Performed By: [employer] [address] [place] [address] Paper Sealer: Wiliam Samuels MD, PhD CLIA Number: [id number] Blood BLOOD SPECIMEN / Unknown Lab Venipuncture / Unknown 01/05/2025 9:48 AM CDT 01/05/2025 10:14 AM CDT us Francia Hammonds MD LAB - CHEMISTRY ORDERABLES Kathleen palma Result [facility] ([facility]) [address] * (ABNORMAL) RENAL FUNCTION PANEL (01/05/2025 9:48 AM CDT) Only the most recent of2 resultswithin the time period is included. BUN 48(H) 7 - 26 mg/dL 01/05/2025 11:04 AM [facility] Creatinine 2.61(H) 0.56 - 0.96 mg/dL 01/05/2025 11:04 AM [facility] Sodium 141 136 - 145 mmol/L 01/05/2025 11:04 AM [facility] Potassium 4.1 3.5 - 4.5 mmol/L 01/05/2025 11:04 AM [facility] Chloride 108(H) 98 - 107 mmol/L 01/05/2025 11:04 AM [facility] CO2 23 22 - 29 mmol/L 01/05/2025 11:04 AM [facility] Glucose 92 70 - 99 mg/dL 01/05/2025 11:04 AM [facility] Albumin 3.4 3.4 - 5.0 g/dL 01/05/2025 11:04 AM [facility] Calcium 8.4 8.4 - 10.2 mg/dL 01/05/2025 11:04 AM [facility] Phosphorus 4.3 2.9 - 5.1 mg/dL 01/05/2025 11:04 AM [facility] Anion Gap 10 6 - 16 01/05/2025 11:04 AM [facility] BUN/Creatinine Ratio 18 7 - 23 01/05/2025 11:04 AM [facility] Osmolality Calculated 304(H) 275 - 295 mOsm/kg 01/05/2025 11:04 AM [facility] eGFR by CKD-EPI 19(L) >=90 mL/min/1.7 3 m2 01/05/2025 11:04 AM CDT [facility] Comment:Estimated Glomerular Filtration Rate (eGFR) calculated using the CKD-EPI Creatinine Equation (2020), per the National Kidney Foundation and [place] Society of Nephrology recommendations. Blood BLOOD SPECIMEN / Unknown Lab Venipuncture / Unknown 01/05/2025 9:48 AM CDT 01/05/2025 10:17 AM CDT us Francia Hammonds MD LAB - CHEMISTRY ORDERABLES Kathleen palma Result [facility] [address] [place] [address], [facility] [phone] * ECHO COMPLETE (01/04/2025 11:14 AM CDT) [...] 11:14 AM Patient Status: O Study Site: [facility] Primary Location: [facility] EStudy Info Technical Quality: Adequate Exam Type: ECHO COMPLETE Indications J44.9 - Chronic obstructive pulmonary disease, unspecified COPD type (HCC) I25.118 - Coronary artery disease of [place] artery [place] heart with stable angina pectoris I10 - Essential hypertension Procedure(s) * A complete 2D, color Doppler, spectral Doppler, and M-Mode transthoracic echocardiogram was performed. Staff Referring Physician: Andrés Kaye Ordering Provider: Andrés Kaye Piece Dyeing Machine Tender: Kendal Orr Left Ventricle The left ventricle [...] 11:14 AM Patient Status: O Study Site: 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 Staff Referring Physician: Andrés Kaye Ordering Provider: Andrés Kaye Piece Dyeing Machine Tender: Kendal Orr Left Ventricle The left ventricle [...] proteinuria N18.32: Chronic kidney disease, stage 3b ([facility]) COMPARISON: 07/17/2023 FINDINGS: Retroperitoneum: Right kidney: 9.0 [...] chronic parenchymal disease. > Interpreting Provider: Swetha Castor MD on 11/30/2024 4:53 PM [facility] ORDERABLES Final Result * ENDOSCOPY, COLON, SCREENING (11/17/2024 1:14 PM CDT) Report Endoscopy POC Endoscopy Department Report _ Patient Name: Eduarda Yusuf Procedure Date: 11/17/2024 1:14 PM Date of : 1955 Classification: Outpatient Gender: Female Ethnicity: Not or Race: or [place] _ Providers: Jewel Dooley MD, Joni Corrales [...] and oxygen saturations were monitored continuously. The CF-NI108N was introduced through the anus and advanced to the cecum, identified by appendiceal orifice and ileocecal valve. The colonoscopy was performed without difficulty. The patient tolerated the procedure well. The quality of the bowel preparation was evaluated using the BBPS ([place] Bowel Preparation Scale) with scores of: Right [...] non-berrios portions. Procedure Code(s): --- Professional --- 75770, Colonoscopy, flexible; with removal of tumor(s), polyp(s), or other lesion(s) by snare technique Diagnosis Code(s): --- Professional --- Z12.11, Encounter for screening for malignant neoplasm of colon K64.0, First degree hemorrhoids D12.2, Benign neoplasm of ascending colon D12.3, Benign neoplasm of transverse colon (hepatic flexure or splenic flexure) K57.30, Diverticulosis of large intestine without perforation or abscess without bleeding CPT copyright 2021 [place] [employer]. All rights reserved. The codes documented in this report are preliminary and upon inpatient coder review may be revised to meet current compliance requirements. Jewel Dooley MD 11/17/2024 2:56:01 PM Note Initiated On: 11/17/2024 1:14 PM Number of Addenda: [address] PROVATION 11/17/2024 1:14 PM CDT Jewel Dooley MD GI PROCEDURE ORDERABLES Edited Result - Final Performing Organization Address [facility]/ZIP Co de Phone Number [facility] [employer]ATION * PROTEIN ELECTROPHORESIS URINE RANDOM (11/11/2024 2:05 PM CDT) Interpretation Urine PE See Comment Normal Pattern 11/14/2024 6:07 PM CDT [facility] Comment: Urine protein electrophoresis shows a band corresponding to albumin with small amounts of other nonspecific proteinuria. No monoclonal immunoglobulins detected. Mello Carmona PhD, [facility] Clinical Aerospace Quality Engineer seo assistant Protein Urine 212 Not Established mg/dL 11/14/2024 6:07 PM CDT [facility] Comment:Result obtained by jose e quan. Urine URINE SPECIMEN OBTAINED BY CLEAN CATCH PROCEDURE / Unknown Collection / Unknown 11/11/2024 2:05 PM CDT 11/11/2024 2:11 PM CDT us Adarsh Menendez MD LAB - URINE CHEMISTRY ORDERABLES Final Result Performing Organization Address [facility]/ZIP Co de Phone Number [address] [address], [facility] [phone] * (ABNORMAL) MICROALB/CREAT RATIO URINE RANDOM PANEL (11/11/2024 2:05 PM CDT) Albumin Random Urine 1,612.1 Not Established ug/mL 11/11/2024 3:07 PM CDT [facility] Creatinine Urine 109.89 Not Established mg/dL 11/11/2024 3:07 PM CDT [facility] Urine Albumin/Creati nine Ratio 1,467(H) <30 mg/g 11/11/2024 3:07 PM CDT [facility] Urine URINE SPECIMEN OBTAINED BY CLEAN CATCH PROCEDURE / Unknown Collection / Unknown 11/11/2024 2:05 PM CDT 11/11/2024 2:11 PM CDT us Adarsh Menendez MD LAB - URINE CHEMISTRY ORDERABLES Final Result [facility] [address] [address], [facility] [phone] * DNA ANTIBODY DS CRITHIDIA TITER (11/11/2024 1:28 PM CDT) dsDNA Antibody IgG <1:10 <1:10 2024 3:11 PM CDT [facility] [place] ([facility]) Comment: INTERPRETIVE INFORMATION: Double-Stranded DNA (dsDNA) [...] recommendations for testing may be found at [email or web address]. Performed By: [employer] [address] [place] [address] Paper Sealer: Wiliam Samuels MD, PhD CLIA Number: [id number] Blood BLOOD SPECIMEN / Unknown Lab Venipuncture / Unknown 11/11/2024 1:28 PM CDT 11/11/2024 1:30 PM CDT us Adarsh Menendez MD LAB - SEROLOGY ORDERABLES Final Result [employer] ([facility]) [address] [place] [address] * HEPATITIS B SURFACE ANTIBODY QUANT (11/11/2024 1:28 PM CDT) Hepatitis B Virus Surface Antibody Non-react reji Non-react reji 11/11/2024 2:35 PM CDT [facility] Comment: < 8 mIU/mL Hepatitis B surface Antibody (HBsAb). Nonreactive for HBsAb - individual is considered not immune to Hepatitis B Virus infection. Hepatitis B Surface Antibody Quantitative <3.0 <8.0 mIU/mL 11/11/2024 2:35 PM CDT [facility] Comment: Hepatitis B Surface Antibody Numeric Result Interpretation: Nonreactive: <8.0 mIU/mL Indeterminate: 8.0 - 12.0 mIU/mL Reactive: >12.0 mIU/mL Blood BLOOD SPECIMEN / Unknown Lab Venipuncture / Unknown 11/11/2024 1:28 PM CDT 11/11/2024 1:30 PM CDT Narrative [facility] - 11/11/2024 2:35 PM CDT This assay should not be used for blood, plasma, or tissue donor screening. This assay is not recommended for neonates born to HBV-infected or suspected HBV-infected mothers. Adarsh Menendez MD LAB - SEROLOGY ORDERABLES Final Result [facility] [address] [place] [address], [facility] [phone] * RUDY BLOOD SCREEN W/REFLEX TITER (11/11/2024 1:28 PM CDT) RUDY IgG None Detected None Detected 11/13/2024 12:36 AM CDT [employer] ([facility]) Comment: No Anti-Nuclear Antibodies (RUDY) detected by . No further testing will be performed. If suspicion of connective tissue disease is strong and RUDY is negative, consider testing for RUDY by IFA ([id number]). INTERPRETIVE INFORMATION: Anti-Nuclear Antibodies (RUDY), IgG by Antinuclear Antibodies (RUDY), IgG by : RUDY specimens are screened using enzyme-linked immunosorbent assay () methodology. All results reported as Detected are further tested by indirect fluorescent assay (IFA) using HEp-2 substrate with an IgG-specific conjugate. The RUDY screen is designed to detect antibodies against dsDNA, histones, SS-A (Ro), SS-B (La), Gutiérrez, Gutiérrez/STEM SIZER, Scl-70, Pauline-1, centromeric proteins, other antigens extracted from the HEp-2 cell nucleus. RUDY assays have been reported to have lower sensitivities than RUDY IFA for systemic autoimmune rheumatic diseases (SARD). Negative results do not necessarily rule out SARD. Performed By: [employer] [address] [place] [address] Paper Sealer: Wiliam Samuels MD, PhD CLIA Number: [id number] Blood BLOOD SPECIMEN / Unknown Lab Venipuncture / Unknown 11/11/2024 1:28 PM CDT 11/11/2024 1:30 PM CDT Adarsh Menendez MD LAB - CHEMISTRY ORDERABLES Final Result [employer] ([facility]) [address] [place] [address], [facility] * GLOMERULAR BASE MEMBRANE ANTIBODY IGG (11/11/2024 1:28 PM CDT) GBM Antibody IgG (EU) 0 0 - 19 AU/mL 11/13/2024 11:53 AM CDT [employer] ([facility]) Comment: INTERPRETIVE INFORMATION: GBM Ab, IgG [...] and assessment of renal prognosis. Performed By: [employer] [address] [place] [address] Paper Sealer: Wiliam Samuels MD, PhD CLIA Number: [id number] Blood BLOOD SPECIMEN / Unknown Lab Venipuncture / Unknown 11/11/2024 1:28 PM CDT 11/11/2024 1:30 PM CDT Adarsh Menendez MD LAB - CHEMISTRY ORDERABLES Final Result Performing Organization Address City/[facility]/ZIP Co de Phone Number [facility] [place] ([facility]) [address] * MPO/NM 3 AUTOANTIBODIES PANEL (11/11/2024 1:28 PM CDT) Pathologist [facility] Serine Proteinase 3 IgG 0 0 - 19 AU/mL 11/14/2024 1:58 PM CDT [facility] ([facility]) Comment: INTERPRETIVE INFORMATION: Serine Proteinase 3, IgG 19 AU/mL or Less ........ Negative 20-25 AU/mL ............. Equivocal 26 AU/mL or Greater ..... Positive Approximately 85% of patients with a C-ANCA pattern by IFA have antibodies specific for PR3. Performed By: [place] [address] Paper Sealer: Wiliam Samuels MD, PhD CLIA Number: [id number] Myeloperoxidase Antibody 0 0 - 19 AU/mL 11/14/2024 1:58 PM CDT [facility] ([facility]) Comment: INTERPRETIVE INFORMATION: Myeloperoxidase Abs, IgG [...] CHEMISTRY ORDERABLES Final Result Performing Organization Address City/[facility] de Phone Number [facility] ([facility]) [address] * (ABNORMAL) KAPPA/LAMBDA LITE CHAIN FREE PANEL (11/11/2024 1:28 PM CDT) [place] Quant Free Light Chain 71.32(H) 3.30 - 19.40 mg/L 11/13/2024 4:43 AM CDT [facility] ([facility]) Comment: INTERPRETIVE INFORMATION: [place] Qnt Free Light Chains Undetected antigen excess is a rare event but cannot be excluded. Free light chain results should always be interpreted in conjunction with other clinical and laboratory findings. Lambda Free Light Chain Quantitative 95.20(H) 5.71 - 26.30 mg/L 11/13/2024 4:43 AM CDT [facility] ([facility]) Comment: INTERPRETIVE INFORMATION: Lambda Qnt Free Light Chains Undetected antigen excess is a rare event but cannot be excluded. Free light chain results should always be interpreted in conjunction with other clinical and laboratory findings. [place]/Lambda Free Light Chain ratio 0.75 0.26 - 1.65 11/13/2024 4:43 AM CDT [facility] ([facility]) Comment: Performed By: [place] [address] Paper Sealer: Wiliam Samuels MD, PhD CLIA Number: [id number] Blood BLOOD SPECIMEN / Unknown Lab Venipuncture / Unknown 11/11/2024 1:28 PM CDT 11/11/2024 1:30 PM CDT us Adarsh Menendez MD LAB - CHEMISTRY ORDERABLES Final Result Performing Organization Address City/[facility]/ZIP Co de Phone Number [facility]) [address] [place] [address] * COMPLEMENT C4 (11/11/2024 1:28 PM CDT) Complement C4 35 15 - 57 mg/dL 11/11/2024 2:02 PM CDT [facility] Blood BLOOD SPECIMEN / Unknown Lab Venipuncture / Unknown 11/11/2024 1:28 PM CDT 11/11/2024 1:35 PM CDT us Adarsh Menendez MD LAB - SEROLOGY ORDERABLES Final Result [facility] [address] [place] [address], [place] [phone] * HEPATITIS B SURFACE ANTIGEN W RFLX CONFIRMATION (11/11/2024 1:28 PM CDT) Hepatitis B Virus Surface Antigen Non-reacti ve Non-reacti ve 11/11/2024 2:33 PM CDT [facility] Blood BLOOD SPECIMEN / Unknown Lab Venipuncture / Unknown 11/11/2024 1:28 PM CDT 11/11/2024 1:30 PM CDT Adarsh Menendez MD LAB - CHEMISTRY ORDERABLES Final Result [facility] [address] [place] [address], [facility] [phone] * (ABNORMAL) PROTEIN ELECTROPHORESIS BLOOD (11/11/2024 1:28 PM CDT) Pathologist [facility] Interpretation Serum PE Abnormal Pattern(A) Normal Pattern 11/14/2024 6:00 PM CDT [facility] Comment: Serum capillary electrophoresis shows characteristic bands corresponding to albumin, alpha and beta globulins and polyclonal immunoglobulins. There is a band of restricted electrophoretic mobility in the gamma region previously identified as an IgG lambda monoclonal immunoglobulin. Mello Carmona PhD, [facility] Clinical Aerospace Quality Engineer seo assistant *The electrophoresis pattern and the interpretation have been reviewed and verified by the teaching physician. Protein Total 6.3 6.0 - 8.3 g/dL 11/14/2024 6:00 PM T [facility] Albumin 3.2(L) 3.3 - 5.6 g/dL 11/14/2024 6:00 PM T [facility] Alpha-1 Globulins 0.4 0.2 - 0.4 g/dL 11/14/2024 6:00 PM T [facility] Alpha-2 Globulins 0.9 0.5 - 1.0 g/dL 11/14/2024 6:00 PM T [facility] Beta Globulins 0.8 0.6 - 1.1 g/dL 11/14/2024 6:00 PM T [facility] Gamma Globulins 1.0 0.6 - 1.6 g/dL 11/14/2024 6:00 PM CDT [facility] Monoclonal Component(s) 0.4(H) None Detected g/dL 11/14/2024 6:00 PM CDT [facility] Blood BLOOD SPECIMEN / Unknown Lab Venipuncture / Unknown 11/11/2024 1:28 PM CDT 11/11/2024 1:30 PM CDT us Adarsh Menendez MD LAB - CHEMISTRY ORDERABLES Final Result [address] [address], [facility] [phone] * HEPATITIS C ANTIBODY (11/11/2024 1:28 PM CDT) Pathologist [facility] Hepatitis C Antibody Non-react reji Non-reac tive 11/11/2024 2:33 PM CDT [facility] Comment:Hepatitis C Antibody screen indicates no [...] MD LAB - CHEMISTRY ORDERABLES Final Result [address] [address], [facility] [phone] * COMPLEMENT C3 (11/11/2024 1:28 PM CDT) Complement C3 144 82 - 193 mg/dL 11/11/2024 2:02 PM CDT [facility] Blood BLOOD SPECIMEN / Unknown Lab Venipuncture / Unknown 11/11/2024 1:28 PM CDT 11/11/2024 1:35 PM CDT us Adarsh Menendez MD LAB - CHEMISTRY ORDERABLES Final Result [facility] [address] [place] [address], [facility] [phone] from Last 3 Months Insurance MEDICAID - [...] 12:41 PM 07/01/2022 3:54 PM Care Teams Cheese Weigher Relationship Specialty Start Date End Date Saul Marcelino MD [address] [place] [phone] PCP - General Family Medicine 04/20/24 Francia Hammonds MD [address] [place] [address] 3 [place] [address] Watch Electrician Nephrology 11/24/24 Andre Mccann MD [address] [place] [phone] Hematology and Oncology 11/24/24 Ana Andersen MD [address] [place] [phone] Hematology and Oncology 11/24/24 Vincent Sandra MD [address] [place] [phone] Rim Roller Setter/Oncologis t Hematology and Oncology 11/24/24 Joan Wood MD [address] [place] [address], [place] [address] Rim Roller Setter/Oncologis t Hematology and Oncology 11/24/24 Lyudmila Bangura MD [address] [facility] [address] [place] [address] Physician Hematology and Oncology 11/24/24 Gloria Alatorre MD [address] [place] [phone] Physician Hematology and Oncology 11/24/24 Mony Zaldivar, PharmD 11/24/24 Shirley Barahona, PharmD Pharmacist 11/24/24 Anastacia Garces RN Registered Nurse 11/24/24 Tabatha Solorzano 11/24/24 Ness Ortiz 11/24/24 Grisel Dobbins, [employer]PRODUCTS PUMP OPERATOR-SENIOR TECHNICAL BUSINESS ANALYST [facility] [place] [address] Nurse Practitioner Nurse Practitioner 11/24/24 Nannette Joshi, RN Registered Nurse 11/24/24 Sylwia Lovelace LCSW [address] [place] [address] Marketing And Outreach Coordinator 11/24/24 Saul Marcelino MD [address] [place] [address] Family Medicine 01/05/25
[2025-02-07] MEDS: HYDROmorphone HCL INJ (*CRX) 1 MG/ML SYR 0.5 MG IV PUSH ×2 (19:03→20:50)
[2025-02-07 19:13] LABS: Hematocrit 33.5 % (37.0-47.0); Hemoglobin 10.5 g/dL (12.0-15.0); Immature Granulocyte Percent A 0.4 % (0-0.5); Lymphocytes Absolute Auto 2.47 K/mm3 (0.9-3.2); Mean Corpuscular HGB Conc 31.3 g/dl (32-36); Mean Corpuscular Hemoglobin 30.2 pg (26-34); Mean Corpuscular Volume 96.3 fl (80-100); Nucleated Red Blood Cells Absolute Auto 0.000 K/mm3 (0.0-0.012); Nucleated Red Blood Cells Perc 0.0 % (0.0-0.2); Platelet Count Result 176 k/mm3 (150-375); Red Blood Count 3.48 M/mm3 (4.2-5.4); White Blood Count 8.9 K/mm3 (4.5-10.0)
[2025-02-07 19:30] LABS: Add Urine Microscopic? YES; Appearance Urine Clear (Clear); Glucose Urine UA Negative (Negative); Leukocyte Esterase Ur Negative LEU/UL (Negative); Nitrate Urine Negative (Negative); Non Pathogenic Casts 0-2; Specific Grav Ur 1.011 (1.001-1.035)
[2025-02-07 19:42] LABS: Alanine Aminotransferase 14 U/L (6-35); Albumin Level 3.4 g/dL (3.5-5.1); Alkaline Phosphatase 85 U/L (38-126); Anion Gap 3 mmol/L (4-12); Aspartate Amino Transferase 27 U/L (14-36); Bilirubin,Total 0.3 mg/dL (0.2-1.3); Blood Urea Nitrogen 37 mg/dL (7-17); Calcium 7.8 mg/dL (8.4-10.2); Carbon Dioxide 27 mmol/L (22-30); Chloride 108 mmol/L (98-107); Estimated CRCL calculation 19 ml/min; Estimated Glomerular Filt Rate 20; Glucose 90 mg/dL (65-110); Potassium 3.7 mmol/L (3.4-5.0); Sodium 138 mmol/L (137-145); Total Protein 6.7 g/dL (6.3-8.2)
[2025-02-07 19:48] LABS: INR 1.1; Prothrombin Time 14.0 Seconds (11.1-14.7)
[2025-02-07 19:49] LABS: Partial Thromboplastin Time 33.6 Seconds (22.3-36.8)
[2025-02-07 20:32] LABS: Cannabinoid Screen Urine Positive (Negative)
[2025-02-07 21:02] VITALS: BP 186/65; PULSE 80; RESP 16; O2SAT 100
== END 2025-02-07 21:03 | disposition home or self-care (01) ==
PROVIDERS: Emergency Provider Registered Nurse; PCP Family Medicine
DX: M48.02 Spinal stenosis, cervical region (principal); S46.111S Strain of muscle, fascia and tendon of long head of biceps, right arm, sequela; M25.531 Pain in right wrist; I12.9 Hypertensive chronic kidney disease with stage 1 through stage 4 chronic kidney disease, or unspecified chronic kidney disease; N18.4 Chronic kidney disease, stage 4 (severe); R39.89 Other symptoms and signs involving the genitourinary system; F11.20 Opioid dependence, uncomplicated; I25.10 Atherosclerotic heart disease of native coronary artery without angina pectoris; J44.9 Chronic obstructive pulmonary disease, unspecified; G20.A1 Parkinson's disease without dyskinesia, without mention of fluctuations; G47.33 Obstructive sleep apnea (adult) (pediatric); G24.01 Drug induced subacute dyskinesia; M06.042 Rheumatoid arthritis without rheumatoid factor, left hand; M06.041 Rheumatoid arthritis without rheumatoid factor, right hand; H81.09 Meniere's disease, unspecified ear; K31.84 Gastroparesis; M19.90 Unspecified osteoarthritis, unspecified site; F31.9 Bipolar disorder, unspecified; F17.210 Nicotine dependence, cigarettes, uncomplicated; Z96.21 Cochlear implant status; Z85.3 Personal history of malignant neoplasm of breast; Z86.0101 Personal history of adenomatous and serrated colon polyps; Z95.5 Presence of coronary angioplasty implant and graft; Z90.49 Acquired absence of other specified parts of digestive tract; Z90.710 Acquired absence of both cervix and uterus; Z90.10 Acquired absence of unspecified breast and nipple; Z79.899 Other long term (current) drug therapy; Z79.82 Long term (current) use of aspirin; X58.XXXS Exposure to other specified factors, sequela
CPT/HCPCS: 36415; 80053; 80307; 81001; 85025; 85610; 85730; 96374; 96376; 99284; J1171

== ENCOUNTER 2025-03-23 11:37 | Outpatient (CLI) | payer MEDICAID, SELFPAY ==
--- NOTE | ~2025-03-23 | DEXA_ITS ---
Bone Density Report Name: RODRI YUSUF Age: 69 Sex: Female Ethnicity: White Date of : 1955 Indication: hyperparathyroidism; height loss; prior fracture; cancer; asthma or emphysema; hysterectomy; rheumatoid arthritis; Referring Provider: NIKITA SCHAEFER Study: Bone densitometry was performed. Exam Date: March 23, 2025 Accession number: [id number] Bone Density: Region BMD T-score Z-score Classification AP Spine(L1, L2) 0.951 -0.3 1.6 Normal Femoral Neck (Left) 0.693 -1.4 0.3 Osteopenia Total Hip (Left) 0.926 -0.1 1.3 Normal Femoral Neck (Right) 0.778 -0.6 1.1 Normal Total Hip (Right) 0.910 -0.3 1.1 Normal Total Hip Mean 0.918 -0.2 1.2 Normal World Health Organization criteria for BMD impression classify patients as: Normal (T-score at or above -1.0), Osteopenia (T-score between -1.0 and -2.5), or Osteoporosis (T-score at or below -2.5). 10-year Fracture Risk(1): Major Osteoporotic Fracture 19% Hip Fracture 2.5% Reported Risk Factors: [place] (), Neck BMD=0.693, BMI=27.6, previous fracture, rheumatoid arthritis (1) FRAX(R) Version 3.08. Fracture probability calculated for an untreated patient. Fracture probability may be lower if the patient has received treatment. Clinical Information Provided by Patient: Has had a low trauma fracture Has rheumatoid arthritis Has used the following medications: Vitamin D Has the following medical conditions: Asthma or Emphysema, Cancer, Hyperparathyroidism, Hysterectomy Patient maximum height was 63 Menopause Age: 46 No regular weight bearing exercise Onset of menses at age 9 Number of children 2 Impression: The patient has low bone mass, based on the Left Femoral Neck T-score. The patient has an estimated ten-year risk of hip fracture of 2.5% and an estimated ten-year risk of major fracture of 19%, based on the WHO FRAX algorithm. The patient has risk factors, including: previous fracture. Discussion: BONE DENSITY IS LOW AT ONE OR MORE SKELETAL SITES. This patient's lowest T-score is low at one or more skeletal sites. It meets the World Health Organization's (WHO) criteria for ?low bone mass? (T-score between -1.0 and -2.5). The patient's 10-year risk of fracture as calculated by FRAX is less than the threshold where pharmacological therapy is recommended by the National Osteoporosis Foundation (NOF). However, all treatment decisions require clinical judgment and consideration of individual patient factors, including patient preferences, comorbidities, previous drug use, risk factors not captured in the FRAX model (e.g., frailty, falls, vitamin D deficiency, increased bone turnover, interval significant decline in bone density) and possible under or overestimation of fracture risk by FRAX. The patient should follow a healthful lifestyle (good nutrition with adequate calcium and vitamin D, and appropriate weight-bearing exercise). Follow-Up: Consider repeating this study in 2 to 3 years to reassess this patient's status, or sooner if there is some new clinical indication. Reported by: ROSA MARIA on 03/23/2025 12:07:00 PM. Reviewed, dictated and finalized at location A.
== END 2025-03-23 11:38 | disposition home or self-care (01) ==
LOC: MICIMG 11:43
PROVIDERS: PCP Family Medicine; Visit Provider Family Medicine
DX: M85.88 Other specified disorders of bone density and structure, other site (principal); Z78.0 Asymptomatic menopausal state; Z91.81 History of falling
CPT/HCPCS: 77080